=== PATIENT | female | born 1990 | race African-American/Black ===

== ENCOUNTER 2020-06-13 16:22 | Emergency (ER) | payer OTHER ==
--- NOTE | 2020-06-13 17:22 | RAD REPORT ---
EXAM DESCRIPTION: RAD - Chest Single View - 06/13/2020 5:16 pm CLINICAL HISTORY: CHEST PAIN Chest pain. COMPARISON: <Comparisons> FINDINGS: Portable technique limits examination quality. The lungs are grossly clear. The heart is normal in size. No displaced fractures. IMPRESSION: No acute intrathoracic process suspected.
[2020-06-13 17:31] LABS: Basophils % 0.7 % (0-1.3); Hematocrit 41.3 % (36.0-45.0)
[2020-06-13 17:35] LABS: Albumin 3.6 g/dL (3.4-5.0); Bilirubin Direct 0.2 mg/dL (0-0.2); Bilirubin Total 0.5 mg/dL (0.2-1.0); Potassium 3.9 mmol/L (3.5-5.1); Protein, Total 8.2 g/dL (6.4-8.2)
[2020-06-13] MEDS ORDERED: ONDANSETRON 4 MG/2 ML VIAL ONE (17:42)
[2020-06-13] MEDS ORDERED: NA CHLORIDE 0.9% 1,000 ML ONE (17:43)
--- NOTE | 2020-06-13 18:01 | ER ---
Nurse's Notes [facility] Name: Jade Murillo Age: 29 yrs Sex: Female : 1990 Arrival Date: 06/13/2020 Time: 16:24 Bed 24 Private MD: Diagnosis: Nausea and vomiting Presentation: 06/13 16:32 Chief complaint: Patient states: Epigastric pain with N/V for 1 day. + CALDERA. Tested ll1 positive for covid 10 days ago. Coronavirus screen: Client denies travel out of the [place] in the last 14 days. vomiting. Client presents with at least one sign or symptom that may indicate coronavirus-19. Standard/surgical mask placed on the client. Client reports previous positive COVID test result. Date of collection: May 30, 2020. Ebola Screen: Patient denies travel to an Ebola-affected area in the 21 days before illness onset. Initial Sepsis Screen: Does the patient meet any 2 criteria? No. Patient's initial sepsis screen is negative. Risk Assessment: Do you want to hurt yourself or someone else? Patient reports no desire to harm self or others. Onset of symptoms was June 13, 2020. 16:32 Acuity: KEVYN 3 ll1 16:32 Method Of Arrival: Ambulatory ll1 16:45 Initial Sepsis Screen: Does the patient have a suspected source of infection? Yes: vc Other: Covid positive. Triage Assessment: 16:45 General: Appears in no apparent distress. uncomfortable, Behavior is calm, cooperative, vc appropriate for age. Pain: Complains of pain in epigastric area Pain does not radiate. Pain currently is 4 out of 10 on a pain scale. at worst was 10 out of 10 on a pain scale. Quality of pain is described as sharp, Pain began gradually, Is intermittent. GI: Reports upper abdominal pain, nausea, vomiting, Patient currently denies diarrhea. Historical: - Allergies: 16:31 No Known Allergies; ll1 - PSHx: 16:31 D \T\ C; Cholecystectomy; ; ll1 - Immunization history:: Flu vaccine is not up to date. - Social history:: Smoking status: Patient denies any tobacco usage or history of. Patient/guardian denies using alcohol, street drugs. Screenin:45 Abuse screen: Denies threats or abuse. Nutritional screening: No deficits noted. vc Tuberculosis screening: No symptoms or risk factors identified. Fall Risk None identified. Assessment: 16:45 General: Appears in no apparent distress. uncomfortable, Behavior is calm, cooperative, vc appropriate for age. Pain: Complains of pain in epigastric area. Neuro: Level of Consciousness is awake, alert, obeys commands, Oriented to person, place, time, situation, Appropriate for age. Cardiovascular: Capillary refill < 3 seconds Patient's skin is warm and dry. Respiratory: Airway is patent Respiratory effort is even, unlabored, Respiratory pattern is regular, symmetrical. GI: Abdomen is non-distended, Reports upper abdominal pain, nausea, vomiting, Patient currently denies diarrhea. : No signs and/or symptoms were reported regarding the genitourinary system. Derm: Skin is intact, is healthy with good turgor, Skin temperature is warm. Musculoskeletal: Circulation, motion, and sensation intact. Range of motion: intact in all extremities. 17:30 Reassessment: Patient appears in no apparent distress at this time. Patient and/or vc family updated on plan of care and expected duration. Pain level reassessed. Patient is alert, oriented x 3, equal unlabored respirations, skin warm/dry/pink. Patient denies pain at this time. 18:00 Reassessment: Patient appears in no apparent distress at this time. Patient and/or vc family updated on plan of care and expected duration. Pain level reassessed. Patient is alert, oriented x 3, equal unlabored respirations, skin warm/dry/pink. Patient states feeling better. Vital Signs: 16:32 BP 118 / 71; Pulse 71; Resp 17; Temp 98.3; Pulse Ox 100% ; Weight 61.23 kg; Height 5 ll1 ft. 4 in. (162.56 cm); Pain 3/10; 17:00 BP 115 / 82; Pulse 66; Resp 18; Pulse Ox 100% on R/A; vc 18:00 BP 111 / 67; Pulse 60; Resp 18; Pulse Ox 100% on R/A; vc 16:32 Body Mass Index 23.17 (61.23 kg, 162.56 cm) ll1 ED Course: 16:24 Patient arrived in ED. fj1 16:25 [facility] kb 16:25 Teja Vergara MD is Attending Physician. kb 16:33 Triage completed. ll1 16:33 Arm band placed on Patient placed in an exam room, on a stretcher. ll1 16:58 Initial lab(s) drawn, by me, sent to lab. Inserted saline lock: 20 gauge in right jp3 antecubital area, using aseptic technique. Blood collected. Patient maintains SpO2 saturation greater than 95% on room air. 17:00 Bed in low position. Call light in reach. Side rails up X 1. Warm blanket given. Verbal jp3 reassurance given. Pulse ox on. NIBP on. 17:17 X-ray(s) taken. jp3 17:27 Xi Kaplan, RN is Primary Nurse. vc 18:23 No provider procedures requiring assistance completed. IV discontinued, intact, vc bleeding controlled, No redness/swelling at site. Pressure dressing applied. Administered Medications: 17:30 Drug: Zofran (Ondansetron) 4 mg Route: IVP; Site: right antecubital; vc 18:04 Follow up: Response: No adverse reaction; Nausea is decreased vc 17:35 Drug: NS 0.9% 1000 ml Route: IV; Rate: 1000 ml; Site: right antecubital; vc 18:24 Follow up: IV Status: Completed infusion; IV Intake: 700ml vc Intake: 18:24 IV: 700ml; Total: 700ml. vc Outcome: 18:01 Discharge ordered by . kb 18:23 Discharged to home ambulatory. vc 18:23 Condition: good 18:23 Discharge instructions given to patient, Instructed on discharge instructions, follow up and referral plans. medication usage, Demonstrated understanding of instructions, follow-up care, medications, Prescriptions given X 2. 18:24 Patient left the ED. vc Signatures: Shana Wooten, PCA ASSISTED LIVING-C PCA ASSISTED LIVING-Jero Espinoza jp3 Xi Kaplan, RN RN Rachid Armas1 Michelle Benavides RN RN ll1
--- NOTE | 2020-06-13 18:02 | EDPHYS ---
Physician Documentation [facility] Name: Jade Murillo Age: 29 yrs Sex: Female : 1990 Arrival Date: 06/13/2020 Time: 16:24 Bed 24 Private MD: ED Physician Teja Vergara HPI: 06/13 16:49 This 29 yrs old Black Female presents to ER via Ambulatory with complaints of kb Nausea/Vomiting, Abdominal Pain. 16:49 The patient presents to the emergency department with nausea, vomiting. Onset: The kb symptoms/episode began/occurred last night. Possible causes: unknown. The symptoms are aggravated by nothing. The symptoms are alleviated by nothing. Associated signs and symptoms: Pertinent positives: nausea, vomiting. Severity of symptoms: At their worst the symptoms were moderate in the emergency department the symptoms are unchanged. The patient has not experienced similar symptoms in the past. The patient has not recently seen a physician. Pt reports "I can't stop throwing up." States she started vomiting last night, has been unable to keep anything down. Denies decreased urination. Reports she had some epigastric pain when she was vomiting earlier. . Historical: - Allergies: 16:31 No Known Allergies; ll1 - PSHx: 16:31 D \\T\\ C; Cholecystectomy; ; ll1 - Immunization history:: Flu vaccine is not up to date. - Social history:: Smoking status: Patient denies any tobacco usage or history of. Patient/guardian denies using alcohol, street drugs. ROS: 16:50 Constitutional: Negative for fever, chills, and weight loss, Cardiovascular: Negative kb for chest pain, palpitations, and edema, Respiratory: Negative for shortness of breath, cough, wheezing, and pleuritic chest pain, MS/Extremity: Negative for injury and deformity, Skin: Negative for injury, rash, and discoloration, Neuro: Negative for headache, weakness, numbness, tingling, and seizure. 16:51 Abdomen/GI: Positive for abdominal pain, nausea and vomiting. kb Exam: 16:51 Constitutional: This is a well developed, well nourished patient who is awake, alert, kb and in no acute distress. Head/Face: Normocephalic, atraumatic. Chest/axilla: Normal chest wall appearance and motion. Nontender with no deformity. No lesions are appreciated. Cardiovascular: Regular rate and rhythm with a normal S1 and S2. No gallops, murmurs, or rubs. Normal PMI, no JVD. No pulse deficits. Respiratory: Lungs have equal breath sounds bilaterally, clear to auscultation and percussion. No rales, rhonchi or wheezes noted. No increased work of breathing, no retractions or nasal flaring. Abdomen/GI: Soft, non-tender, with normal bowel sounds. No distension or tympany. No guarding or rebound. No evidence of tenderness throughout. Skin: Warm, dry with normal turgor. Normal color with no rashes, no lesions, and no evidence of cellulitis. MS/ Extremity: Pulses equal, no cyanosis. Neurovascular intact. Full, normal range of motion. Neuro: Awake and alert, GCS 15, oriented to person, place, time, and situation. Cranial nerves II-XII grossly intact. Motor strength 5/5 in all extremities. Sensory grossly intact. Cerebellar exam normal. Normal gait. Vital Signs: 16:32 BP 118 / 71; Pulse 71; Resp 17; Temp 98.3; Pulse Ox 100% ; Weight 61.23 kg; Height 5 ll1 ft. 4 in. (162.56 cm); Pain 3/10; 17:00 BP 115 / 82; Pulse 66; Resp 18; Pulse Ox 100% on R/A; vc 18:00 BP 111 / 67; Pulse 60; Resp 18; Pulse Ox 100% on R/A; vc 16:32 Body Mass Index 23.17 (61.23 kg, 162.56 cm) ll1 MDM: 16:35 Patient medically screened. kb 16:51 Data reviewed: vital signs, nurses notes. Data interpreted: Pulse oximetry: on room air kb is 100 %. Interpretation: normal. 18:00 Counseling: I had a detailed discussion with the patient and/or guardian regarding: the kb historical points, exam findings, and any diagnostic results supporting the discharge/admit diagnosis, lab results, radiology results, the need for outpatient follow up, a family practitioner, to return to the emergency department if symptoms worsen or persist or if there are any questions or concerns that arise at home. 06/13 16:39 Order name: Basic Metabolic Panel kb 06/13 16:39 Order name: CBC with Diff kb 06/13 16:39 Order name: Hepatic Function kb 06/13 16:39 Order name: Lipase 06/13 17:33 Order name: CBC with Automated Diff; Complete Time: 17:40 EDMS 06/13 17:36 Order name: Basic Metabolic Panel; Complete Time: 17:40 EDMS 06/13 16:39 Order name: IV Saline Lock; Complete Time: 17:27 kb 06/13 16:39 Order name: Labs collected and sent; Complete Time: 17:27 kb 06/13 16:52 Order name: Chest Single View XRAY kb 06/13 17:25 Order name: RAD; Complete Time: 17:28 EDMS 06/13 17:36 Order name: Liver (Hepatic) Function; Complete Time: 17:40 EDMS 06/13 17:36 Order name: Lipase; Complete Time: 17:40 EDMS 06/13 17:41 Order name: PO challenge; Complete Time: 18:23 kb Administered Medications: 17:30 Drug: Zofran (Ondansetron) 4 mg Route: IVP; Site: right antecubital; vc 18:04 Follow up: Response: No adverse reaction; Nausea is decreased vc 17:35 Drug: NS 0.9% 1000 ml Route: IV; Rate: 1000 ml; Site: right antecubital; vc 18:24 Follow up: IV Status: Completed infusion; IV Intake: 700ml vc Disposition: 06/14 07:57 Co-signature as Attending Physician, Teja Vergara MD I agree with the assessment and kdr plan of care. Disposition: 06/13/20 18:01 Discharged to Home. Impression: Nausea and vomiting. - Condition is Stable. - Discharge Instructions: Nausea and Vomiting, Adult, [id number]. - Prescriptions for Bentyl 20 mg Oral Tablet - take 1 tablet by ORAL route every 6 hours As needed; 20 tablet. Zofran 4 mg Oral Tablet - take 1 tablet by ORAL route every 6 hours As needed; 20 tablet. - Medication Reconciliation Form, Thank You Letter, Antibiotic Education, Prescription Opioid Use form. - Follow up: Emergency Department; When: As needed; Reason: Worsening of condition. Follow up: Private Physician; When: 2 - 3 days; Reason: Recheck today's complaints, Continuance of care, Re-evaluation by your physician. Signatures: Dispatcher [employer] Shana Victoria FNP-C CAR BODY MECHANIC-Ckb Teja Vergara MD MD kdr Xi Kaplan RN RN vc Michelle Benavides RN RN ll1 Corrections: (The following items were deleted from the chart) 06/13 16:51 16:50 Constitutional: Negative for fever, chills, and weight loss, Cardiovascular: kb Negative for chest pain, palpitations, and edema, Respiratory: Negative for shortness of breath, cough, wheezing, and pleuritic chest pain, Abdomen/GI: Negative for abdominal pain, nausea, vomiting, diarrhea, and constipation, MS/Extremity: Negative for injury and deformity, Skin: Negative for injury, rash, and discoloration, Neuro: Negative for headache, weakness, numbness, tingling, and seizure, kb 18:24 18:01 06/13/2020 18:01 Discharged to Home. Impression: Nausea and vomiting. Condition vc is Stable. Forms are Medication Reconciliation Form, Thank You Letter, Antibiotic Education, Prescription Opioid Use. Follow up: Emergency Department; When: As needed; Reason: Worsening of condition. Follow up: Private Physician; When: 2 - 3 days; Reason: Recheck today's complaints, Continuance of care, Re-evaluation by your physician. kb
[2020-06-13 18:30] VITALS: TEMP 98.3; O2SAT 100
[2020-06-13 18:33] VITALS: BP 111/67
== END 2020-06-13 18:24 | disposition home or self-care (01) ==
LOC: ER 16:22
DX: R11.2 Nausea with vomiting, unspecified (principal); R10.13 Epigastric pain
CPT/HCPCS: 96361; 85025; 80048; 36415; 80076; 83690; 71045; 96374; 99284; J7030; J2405

== ENCOUNTER 2022-05-25 12:38 | Emergency (ER) | payer OTHER, SELFPAY ==
--- NOTE | 2022-05-25 15:00 | ER ---
Nurse's Notes [facility] Name: Jade Murillo Age: 31 yrs Sex: Female : 1990 Arrival Date: 05/25/2022 Time: 12:41 Bed 10 Private MD: Diagnosis: Coronavirus infection, unspecified Presentation: 05/25 12:54 Chief complaint: Patient states: fever, body aches, and headache since yesterday. vg1 Denies NVD. Coronavirus screen: Vaccine status: Patient reports being unvaccinated. Client denies travel out of the [place] in the last 14 days. Ebola Screen: Patient denies exposure to infectious person. Patient denies travel to an Ebola-affected area in the 21 days before illness onset. Initial Sepsis Screen: Does the patient meet any 2 criteria? HR > 90 bpm. Does the patient have a suspected source of infection? No. Patient's initial sepsis screen is negative. Risk Assessment: Do you want to hurt yourself or someone else? Patient reports no desire to harm self or others. Onset of symptoms was May 24, 2022. 12:54 Method Of Arrival: Ambulatory [facility] 12:54 Acuity: KEVYN 4 vg1 Triage Assessment: 12:57 Headache History: The patient has had previous headaches and this one is similar to vg1 previous episodes. General: Appears in no apparent distress. uncomfortable, Behavior is calm, cooperative. Pain: Complains of pain in generalize body Pain currently is 7 out of 10 on a pain scale. Pain began 1 day ago. Also complains of no other associated symptoms. Neuro: Level of Consciousness is awake, alert, obeys commands, Oriented to person, place, time, situation. 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 - Social history:: Smoking status: Patient denies any tobacco usage or history of. Screenin:08 Abuse screen: Denies threats or abuse. Denies injuries from another. Nutritional ld1 screening: No deficits noted. Tuberculosis screening: No symptoms or risk factors identified. Fall Risk None identified. Assessment: 15:08 Reassessment: See triage assessment. ld1 Vital Signs: 12:54 BP 145 / 97; Pulse 111; Resp 16; Temp 101.4(O); Pulse Ox 100% on R/A; Weight 70.76 kg; vg1 Height 5 ft. 4 in. (162.56 cm); Pain 7/10; 15:08 BP 139 / 95; Pulse 102; Resp 18; Temp 99.3(O); Pulse Ox 100% on R/A; ld1 12:54 Body Mass Index 26.78 (70.76 kg, 162.56 cm) vg1 ED Course: 12:41 Patient arrived in ED. as 12:45 Forest Viramontes is PHCP. 9 12:57 Triage completed. vg1 12:57 Arm band placed on. vg1 15:00 Forest Viramontes is PHCP. jl9 15:00 Travis Doll DO is Attending Physician. jl9 15:00 Sienna Jean, RN is Primary Nurse. ld1 15:08 Patient has correct armband on for positive identification. Placed in gown. Bed in low ld1 position. Call light in reach. Side rails up X2. Pulse ox on. NIBP on. Door closed. Noise minimized. Warm blanket given. 15:08 No provider procedures requiring assistance completed. Patient did not have IV access ld1 during this emergency room visit. Administered Medications: 15:08 Drug: Tylenol 1000 mg Route: PO; ld1 Medication: 15:08 VIS not applicable for this client. ld1 Outcome: 14:59 Discharge ordered by MD. ruiz 15:01 Discharge ordered by MD. ruiz 15:09 Discharged to home ambulatory. ld1 15:09 Condition: stable 15:09 Discharge instructions given to patient, Instructed on discharge instructions, follow up and referral plans. Demonstrated understanding of instructions, follow-up care. 15:09 Patient left the ED. ld1 Signatures: Desi Dwyer Victoria, RN RN 1 Sienna Jean, YONG RN ld1 Forest Viramontes jl9
--- NOTE | 2022-05-25 15:00 | EDPHYS ---
Physician Documentation [facility] Name: Jade Murillo Age: 31 yrs Sex: Female : 1990 Arrival Date: 05/25/2022 Time: 12:41 Bed 10 Private MD: ED Physician Travis Doll HPI: 05/25 14:41 This 31 yrs old Black Female presents to ER via Ambulatory with complaints of Fever, jl9 Pain All Over, Headache. 14:41 Onset: The symptoms/episode began/occurred yesterday. Associated signs and symptoms: jl9 Pertinent positives: Fever, body aches, headache. . Severity of symptoms: in the emergency department the symptoms are unchanged. . 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 - Social history:: Smoking status: Patient denies any tobacco usage or history of. ROS: 14:43 Eyes: Negative for injury, pain, redness, and discharge, ENT: Negative for injury, jl9 pain, and discharge, Neck: Negative for injury, pain, and swelling, Cardiovascular: Negative for chest pain, palpitations, and edema, Respiratory: Negative for shortness of breath, cough, wheezing, and pleuritic chest pain, Abdomen/GI: Negative for abdominal pain, nausea, vomiting, diarrhea, and constipation, Back: Negative for injury and pain, MS/Extremity: Negative for injury and deformity, Skin: Negative for injury, rash, and discoloration, Neuro: Negative for headache, weakness, numbness, tingling, and seizure, Psych: Negative for depression, anxiety, suicide ideation, homicidal ideation, and hallucinations, Allergy/Immunology: Negative for hives, rash, and allergies, Endocrine: Negative for neck swelling, polydipsia, polyuria, polyphagia, and marked weight changes, Hematologic/Lymphatic: Negative for swollen nodes, abnormal bleeding, and unusual bruising. 14:43 Constitutional: Positive for body aches, fever, Headache. Exam: 14:43 Constitutional: This is a well developed, well nourished patient who is awake, alert, jl9 and in no acute distress. Head/Face: Normocephalic, atraumatic. Eyes: Pupils equal round and reactive to light, extra-ocular motions intact. Lids and lashes normal. Conjunctiva and sclera are non-icteric and not injected. Cornea within normal limits. Periorbital areas with no swelling, redness, or edema. ENT: Mucous membranes moist. Neck: Trachea midline, no thyromegaly or masses palpated, and no cervical lymphadenopathy. Supple, full range of motion without nuchal rigidity, or vertebral point tenderness. No Meningismus. Chest/axilla: Normal chest wall appearance and motion. Nontender with no deformity. No lesions are appreciated. Cardiovascular: Regular rate and rhythm with a normal S1 and S2. No gallops, murmurs, or rubs. Normal PMI, no JVD. No pulse deficits. Respiratory: Lungs have equal breath sounds bilaterally, clear to auscultation and percussion. No rales, rhonchi or wheezes noted. No increased work of breathing, no retractions or nasal flaring. Abdomen/GI: Soft, non-tender, with normal bowel sounds. No distension or tympany. No guarding or rebound. No evidence of tenderness throughout. Back: No spinal tenderness. No costovertebral tenderness. Full range of motion. Skin: Warm, dry with normal turgor. Normal color with no rashes, no lesions, and no evidence of cellulitis. MS/ Extremity: Pulses equal, no cyanosis. Neurovascular intact. Full, normal range of motion. Neuro: Awake and alert, GCS 15, oriented to person, place, time, and situation. Cranial nerves II-XII grossly intact. Motor strength 5/5 in all extremities. Sensory grossly intact. Cerebellar exam normal. Normal gait. Psych: Awake, alert, with orientation to person, place and time. Behavior, mood, and affect are within normal limits. Vital Signs: 12:54 BP 145 / 97; Pulse 111; Resp 16; Temp 101.4(O); Pulse Ox 100% on R/A; Weight 70.76 kg; vg1 Height 5 ft. 4 in. (162.56 cm); Pain 7/10; 15:08 BP 139 / 95; Pulse 102; Resp 18; Temp 99.3(O); Pulse Ox 100% on R/A; ld1 12:54 Body Mass Index 26.78 (70.76 kg, 162.56 cm) vg1 MDM: 14:01 Patient medically screened. jl9 15:04 Data reviewed: vital signs, nurses notes. jl9 05/25 13:00 Order name: Flu; Complete Time: 14:06 vg1 05/25 13:00 Order name: SARS-COV-2 RT PCR (Document "Date of Onset" if Symptomatic) vg1 Administered Medications: 15:08 Drug: Tylenol 1000 mg Route: PO; ld1 Disposition: 22:01 Co-signature as Attending Physician, Travis STONE was immediately available on-site ms3 in the Emergency Department for consultation in the care of the patient. . Disposition Summary: 05/25/22 15:01 Discharge Ordered Location: Home(05/25/22 15:01) jl9 Condition: Stable(05/25/22 15:01) jl9 Diagnosis - Coronavirus infection, unspecified(05/25/22 15:01) jl9 Discharge Instructions: - Discharge Summary Sheet jl9 - COVID-19 jl9 Forms: - Medication Reconciliation Form jl9 - Thank You Letter jl9 - Antibiotic Education jl9 - Prescription Opioid Use jl9 Signatures: Dispatcher [employer] EDSybil Jett, RN RN vg1 Travis Doll DO DO ms3 Sienna Jean RN RN ld1 Forest Viramontes jl9 Corrections: (The following items were deleted from the chart) 15:01 14:59 Home jl9 jl9 15:01 14:59 Stable 9 jl9 15:01 14:59 Coronavirus infection, unspecified jl9 jl9
[2022-05-25] MEDS ORDERED: ACETAMINOPHEN 500 MG TAB ONE (15:10)
[2022-05-25 15:49] VITALS: O2SAT 100
[2022-05-25 15:59] VITALS: BP 139/95; TEMP 99.3
== END 2022-05-25 15:09 | disposition home or self-care (01) ==
LOC: ER 12:38
DX: U07.1 COVID-19 (principal)
CPT/HCPCS: 87804; 99283; U0003

== ENCOUNTER 2022-11-11 11:38 | Emergency (ER) | payer OTHER ==
--- OUTSIDE RECORDS SUMMARY | 2022-11-11 11:46 | XMS REPORT | Continuity of Care Document ---
:1990 Author Organization [facility] t Address [address] [place] [address] Care Team Providers Name Role Phone Romy Attending Clinician Unavailable PRASHANTH Attending Clinician Unavailable Romy Admitting Clinician Unavailable PRASHANTH Admitting Clinician Unavailable Payers Payer Name Policy Type Policy Number Effective Date Expiration Date [facility] [id number] CHOICE (MEDICAID REPLACEMENT - [place] [id number] WOMEN'S HEALTH PROGRAM [place] [id number] 2019 [facility] [place] 00:00:00 WOMEN RELIANCE STANDARD [id number] - [facility] MEDICAL LIMITED PLAN - MULTIPLAN Problems Condition Condition Condition Status Onset Resolution Last Treating Co mments Source Name Details Category Date Date Treatment Clinician Date Intramural Intramural Problem Active [facility] leiomyoma Leiomyoma 5-17 da of uterus of Uterus 00:00: Medi pam 00 Group Gonorrhea Gonorrhea Problem Active 2019-11 [facility] 0-13 da 00:00: Medical 00 Group Transderma Transderma Problem Active [facility] l l 9-28 da contracept Contracept 00:00: Me dical kari kari 00 Group Gynecologi Gynecologi Problem Active [facility] c c 928 da examinatio Examinatio 00:00: Me dical n n 00 Group Venereal Venereal Problem Active [place] disease Disease 9- da screening Screening 00:00: [facility] Group Intermenst Intermenst Problem Active [facility] rual rual 6-16 da bleeding - Bleeding - 00:00: Me dical irregular Irregular 00 Grou p Initiation Initiation Problem Active [facility] of of 6-16 da transderma Transderma 00:00: Me dical l l 00 Group contracept Contracept ion done ion Done Problem Active 2018-11 [facility] care Care 1-12 da 00:00: Medical 00 Group Initiation Initiation Problem Active 2018-11 [facility] [place] 1-12 da contracept Contracept 00:00: Me dical ion done ion Done 00 Group Contracept Contracept Problem Active 2018-11 [facility] ion ion 1-12 da education Education 00:00: Medi pam Group Small for Small for Problem Active [facility] gestationa Gestationa 8-28 da l age l Age 00:00: Medical fetus Fetus 00 Group Unintentio Unintentio Problem Active [facility] nal weight nal Weight 5-07 da loss Loss 00:00: Medical 00 Group Severe Severe Problem Active [facility] hyperemesi Hyperemesi 4-09 da s s 00:00: Medical gravidarum Gravidarum 00 Gr oup Allergies, Adverse Reactions, Alerts Allergy Allergy Status Severity Reaction(s) Onset Inactive Treating Comm ents Source Name Type Date Date Clinician No Known DA Active U 2018- [facility] All[facility]ie 9-25 [facility] [place] Social History Smoking Status Start Date Stop Date Source Never Smoker [facility] Medications Ordered Filled Start Stop Current Ordering Indication Dosage Frequency Signature Comments Components Source Medication Medication Date Date Medication? Clinician (SIG) Name Name medroxyprog medroxyprog No medroxypro [place] esterone 10 esterone 10 gesterone da mg tablet mg tablet 10 mg Medi pam TAKE ONE TAKE ONE tablet Group (1) (1) TAKE ONE TABLET(S) TABLET(S) (1) BY MOUTH BY MOUTH TABLET(S) ONCE A DAY. ONCE A DAY. BY MOUTH ONCE A DAY. medroxyprog medroxyprog No 1mL medroxypro [place] esterone esterone gesterone da 150 mg/mL 150 mg/mL 150 mg/mL Medical intramuscul intramuscul intramuscu Group ar ar lar suspension suspension suspension Inject 1 mL Inject 1 mL Inject 1 every 3 every 3 mL every 3 months by months by months by intramuscul intramuscul intramuscu ar route. ar route. lar route. Vital Signs Vital Name Observation Time Observation Value Comments Source BP Diastolic 2022-06-22 00:00:00 82 mm[Hg] [facility] Height 2022-06-22 00:00:00 64 [in_i] [facility] BMI (Body Mass 2022-06-22 00:00:00 26 kg/m2 [facility] Index) Group BP Systolic 2022-06-22 00:00:00 131 mm[Hg] [facility] Body Weight 2022-06-22 00:00:00 151.4 [lb_av] [facility] BP Diastolic 2022-05-08 00:00:00 92 mm[Hg] [facility] Height 2022-05-08 00:00:00 64 [in_i] [facility] BMI (Body Mass 2022-05-08 00:00:00 25.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) Group BP Systolic 2022-05-08 00:00:00 142 mm[Hg] [facility] Body Weight 2022-05-08 00:00:00 151 [lb_av] [facility] Height 2022-03-18 00:00:00 64 [in_i] [facility] BP Diastolic 2021-12-18 00:00:00 88 mm[Hg] [facility] Height 2021-12-18 00:00:00 64 [in_i] [facility] BMI (Body Mass 2021-12-18 00:00:00 25.5 kg/m2 [facility] Index) Group BP Systolic 2021-12-18 00:00:00 138 mm[Hg] [facility] Body Weight 2021-12-18 00:00:00 148.4 [lb_av] [facility] Height 2021-09-17 00:00:00 64 [in_i] [facility] BMI (Body Mass 2021-09-17 00:00:00 23.2 kg/m2 [facility] Medical Index) Group Body Weight 2021-09-17 00:00:00 135 [lb_av] [facility] BP Diastolic 2021-09-02 00:00:00 75 mm[Hg] [facility] Height 2021-09-02 00:00:00 64 [in_i] [facility] BMI (Body Mass 2021-09-02 00:00:00 23 kg/m2 [facility] Medical Index) Group BP Systolic 2021-09-02 00:00:00 119 mm[Hg] [facility] Body Weight 2021-09-02 00:00:00 134.2 [lb_av] [facility] BP Diastolic 2021-08-19 00:00:00 87 mm[Hg] [facility] Height 2021-08-19 00:00:00 64 [in_i] [facility] BMI (Body Mass 2021-08-19 00:00:00 22.6 kg/m2 [facility] Medical Index) Group BP Systolic 2021-08-19 00:00:00 124 mm[Hg] [facility] Body Weight 2021-08-19 00:00:00 131.9 [lb_av] [facility] BP Diastolic 2021-04-11 00:00:00 81 mm[Hg] [facility] Height 2021-04-11 00:00:00 64 [in_i] [facility] BMI (Body Mass 2021-04-11 00:00:00 21.1 kg/m2 [facility] Medical Index) Group BP Systolic 2021-04-11 00:00:00 144 mm[Hg] [facility] Body Weight 2021-04-11 00:00:00 122.9 [lb_av] [facility] Height 2021-03-24 00:00:00 64 [in_i] [facility] BMI (Body Mass 2021-03-24 00:00:00 20.9 kg/m2 [facility] Medical Index) Group BP Systolic 2021-03-24 00:00:00 127 mm[Hg] [facility] Body Weight 2021-03-24 00:00:00 122 [lb_av] [facility] BP Diastolic 2021-03-24 00:00:00 83 mm[Hg] [facility] BP Diastolic 2020-09-24 00:00:00 83 mm[Hg] [facility] Height 2020-09-24 00:00:00 64 [in_i] [facility] BMI (Body Mass 2020-09-24 00:00:00 22.7 kg/m2 [facility] Index) Group BP Systolic 2020-09-24 00:00:00 120 mm[Hg] [facility] Body Weight 2020-09-24 00:00:00 132.4 [lb_av] [facility] BP Diastolic 2020-08-20 00:00:00 70 mm[Hg] [facility] Height 2020-08-20 00:00:00 64 [in_i] [facility] BMI (Body Mass 2020-08-20 00:00:00 22.6 kg/m2 [facility] Index) Group BP Systolic 2020-08-20 00:00:00 131 mm[Hg] [facility] Body Weight 2020-08-20 00:00:00 131.5 [lb_av] [facility] BP Diastolic 2020-08-05 00:00:00 80 mm[Hg] [facility] Height 2020-08-05 00:00:00 64 [in_i] [facility] BMI (Body Mass 2020-08-05 00:00:00 22.3 kg/m2 [facility] Index) Group BP Systolic 2020-08-05 00:00:00 130 mm[Hg] [facility] Body Weight 2020-08-05 00:00:00 130 [lb_av] [facility] BP Diastolic 2020-04-23 00:00:00 82 mm[Hg] [facility] Height 2020-04-23 00:00:00 64 [in_i] [facility] BMI (Body Mass 2020-04-23 00:00:00 23 kg/m2 [facility] Index) Group BP Systolic 2020-04-23 00:00:00 128 mm[Hg] [facility] Body Weight 2020-04-23 00:00:00 134 [lb_av] [facility] BP Diastolic 2020-01-02 00:00:00 73 mm[Hg] [facility] Height 2020-01-02 00:00:00 64 [in_i] [facility] BMI (Body Mass 2020-01-02 00:00:00 21.8 kg/m2 [facility] Index) Group BP Systolic 2020-01-02 00:00:00 114 mm[Hg] [facility] Body Weight 2020-01-02 00:00:00 127.1 [lb_av] [facility] BP Diastolic 2019-09-19 00:00:00 78 mm[Hg] [facility] Height 2019-09-19 00:00:00 64 [in_i] [facility] BMI (Body Mass 2019-09-19 00:00:00 21.8 kg/m2 [facility] Index) Group BP Systolic 2019-09-19 00:00:00 122 mm[Hg] [facility] Body Weight 2019-09-19 00:00:00 127.2 [lb_av] [facility] BP Diastolic 2019-08-02 00:00:00 77 mm[Hg] [facility] Height 2019-08-02 00:00:00 64 [in_i] [facility] BMI (Body Mass 2019-08-02 00:00:00 22 kg/m2 [facility] Index) Group BP Systolic 2019-08-02 00:00:00 116 mm[Hg] [facility] Body Weight 2019-08-02 00:00:00 128 [lb_av] [facility] BP Diastolic 2019-07-19 00:00:00 76 mm[Hg] [facility] Height 2019-07-19 00:00:00 64 [in_i] [facility] BMI (Body Mass 2019-07-19 00:00:00 21.8 kg/m2 [facility] Index) Group BP Systolic 2019-07-19 00:00:00 117 mm[Hg] [facility] Body Weight 2019-07-19 00:00:00 127 [lb_av] [facility] BP Diastolic 2019-07-05 00:00:00 63 mm[Hg] [facility] Height 2019-07-05 00:00:00 64 [in_i] [facility] BMI (Body Mass 2019-07-05 00:00:00 21.9 kg/m2 [facility] Medical Index) Group BP Systolic 2019-07-05 00:00:00 103 mm[Hg] [facility] Body Weight 2019-07-05 00:00:00 127.5 [lb_av] [facility] BP Diastolic 2019-06-05 00:00:00 76 mm[Hg] [facility] Height 2019-06-05 00:00:00 64 [in_i] [facility] BMI (Body Mass 2019-06-05 00:00:00 20.9 kg/m2 [facility] Index) Group BP Systolic 2019-06-05 00:00:00 106 mm[Hg] [facility] Body Weight 2019-06-05 00:00:00 122 [lb_av] [facility] BP Diastolic 2019-05-08 00:00:00 69 mm[Hg] [facility] Height 2019-05-08 00:00:00 64 [in_i] [facility] BMI (Body Mass 2019-05-08 00:00:00 20.5 kg/m2 [facility]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) Group BP Systolic 2019-05-08 00:00:00 107 mm[Hg] [facility] Body Weight 2019-05-08 00:00:00 119.4 [lb_av] [facility] BP Diastolic 2019-04-10 00:00:00 81 mm[Hg] [facility] Height 2019-04-10 00:00:00 64 [in_i] [facility] BMI (Body Mass 2019-04-10 00:00:00 19.3 kg/m2 [facility]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) Group BP Systolic 2019-04-10 00:00:00 119 mm[Hg] [facility] Body Weight 2019-04-10 00:00:00 112.5 [lb_av] [facility] BP Diastolic 2019-04-04 00:00:00 85 mm[Hg] [facility] Height 2019-04-04 00:00:00 64 [in_i] [facility] BMI (Body Mass 2019-04-04 00:00:00 19.4 kg/m2 [facility]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) Group BP Systolic 2019-04-04 00:00:00 132 mm[Hg] [facility] Body Weight 2019-04-04 00:00:00 113 [lb_av] [facility] BP Diastolic 2019-03-14 00:00:00 87 mm[Hg] [facility] Height 2019-03-14 00:00:00 64 [in_i] [facility] BMI (Body Mass 2019-03-14 00:00:00 19.1 kg/m2 [facility]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) Group BP Systolic 2019-03-14 00:00:00 124 mm[Hg] [facility] Body Weight 2019-03-14 00:00:00 111 [lb_av] [facility] BP Diastolic 2019-02-14 00:00:00 97 mm[Hg] [facility] Height 2019-02-14 00:00:00 64 [in_i] [facility] BMI (Body Mass 2019-02-14 00:00:00 20.6 kg/m2 [facility] Medical Index) Group BP Systolic 2019-02-14 00:00:00 135 mm[Hg] [facility] Body Weight 2019-02-14 00:00:00 120 [lb_av] [facility] BP Diastolic 2019-02-07 00:00:00 83 mm[Hg] [facility] Height 2019-02-07 00:00:00 64 [in_i] [facility] BMI (Body Mass 2019-02-07 00:00:00 22 kg/m2 [facility]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) Group BP Systolic 2019-02-07 00:00:00 124 mm[Hg] [facility] Body Weight 2019-02-07 00:00:00 128.4 [lb_av] [facility] BP Diastolic 2019-01-26 00:00:00 84 mm[Hg] [facility] Height 2019-01-26 00:00:00 64 [in_i] [facility] BMI (Body Mass 2019-01-26 00:00:00 22.4 kg/m2 [facility] Index) Group BP Systolic 2019-01-26 00:00:00 128 mm[Hg] [facility] Body Weight 2019-01-26 00:00:00 130.4 [lb_av] [facility] BP Diastolic 2019-01-03 00:00:00 76 mm[Hg] [facility] Height 2019-01-03 00:00:00 64 [in_i] [facility] BMI (Body Mass 2019-01-03 00:00:00 22.4 kg/m2 [facility] Medical Index) Group BP Systolic 2019-01-03 00:00:00 118 mm[Hg] [facility] Body Weight 2019-01-03 00:00:00 130.3 [lb_av] [facility] Procedures Procedure Date / Time Performing Source Performed Clinician US, transvaginal 2021-03-24 00:00:00 Caroline Wynn edical Group US, obstetric, limited 2019-08-02 00:00:00 [facility] US(FBP)W/0 NON STRESS TEST 2019-08-02 00:00[facility] 2019-07-05 00:00:00 [facility] US, obstetric, limited 2019-04-10 00:00:00 [facility] ULTRASOUND, UTERUS 2019-04-10 00:00:00 [facility] REAL TIME WITH IMAGE DOC, Group AND MATERNAL EVAL PLUS DETAILED ANATOMIC EXAMINATION, TRANSABDOMINAL APPROACH; SINGLE OR FIRST GESTATION US, obstetric, limited 2019-03-14 00:00:00 [facility] ULTRASOUND, UTERUS 2019-02-14 00:00:00 [facility] REAL TIME WITH IMAGE Group DOCUMENTAITON, TRANSVAGINAL ULTRASOUND, UTERUS 2019-01-26 00:00:00 [facility] REAL TIME WITH IMAGE Group DOCUMENTAITON, TRANSVAGINAL XR, hysterosalpingogram 2019-01-03 00:00:00 [facility] 2018-11-08 00:00:00 [facility] dical Group Dilation and Curettage 2014-09-08 00:00:00 [facility] Plan of Care Planned Activity Planned Date Details Comments Source Diagnostic Test 2022-06-22 test, [facility] Pending 00:00:00 urine [code = Group test, urine] Encounters Start End Encounter Admission Attending Care Care Encounter Source Date/Time Date/Time Type Type Clinicians Facility Department ID 2022-10-01 2022-10-01 Outpatient Rutledge_L [facility] [id number] [place] 00:00:00 00:00:00 1124 [facility] 2022-09-25 2022-09-25 Outpatient Rutledge_L [facility] [id number] [place] 00:00:00 00:00:00 1118 [facility] 2022-09-01 2022-09-01 Outpatient Rutledge_L MMG [facility] [id number] [place] 00:00:00 00:00:00 1025 [facility] 2022-08-05 2022-08-05 Outpatient Rutledge_L MMG [facility] [id number] [place] 00:00:00 00:00:00 0928 [facility] 2022-06-23 2022-06-23 Outpatient Rutledge_L MMG [facility] 2716 [place] 00:00:00 00:00:00 0816 [facility] 2022-06-22 2022-06-22 Judy [place]ieledge_[place] - [id number] 022 [place] 00:00:00 00:00:00 Adan Eagle 0815 Elizabteh Davis MD: [address] [place] [address] , Ph. [phone] 2022-06-16 2022-06-16 Outpatient Rutledge_L MMG MMG [id number] [place] 00:00:00 00:00:00 0809 da [facility] 2022-05-08 2022-05-08 Arun Wilsonledge_[place] MM[place] - [id number] 022 [place] 00:00:00 00:00:00 Discovery Lyric 0701 da MD: [address] [place] [address] , Ph. [phone] 2022-03-18 2022-03-18 Ar[place] Wilsonledge_[place] MM[place] - [id number] 022 [place] 00:00:00 00:00:00 Discovery Lyric 0511 mark MD: [address] [place] [address] , Ph. [phone] 2021-12-23 2021-12-23 Outpatient Rutledge_L MMG MMG 2716 [place] 09:19:00 09:19:00 0215 mark [facility] 2021-12-18 2021-12-18 Patricia [place] - [address] [place] 00:00:00 00:00:00 Discovery Martha 0210 mark [facility]: [address] [address] , Ph. [phone] 2021-12-17 2021-12-17 Outpatient Rutledge_L MMG MMG [id number] [place] 04:22:00 04:22:00 0209 Medical Group 2021-10-10 2021-10-10 Outpatient DICLEMENTE_ MILAN YATES 750 [place] 05:04:00 05:04:00 TEETEE Christensen mark [facility] 2021-09-17 2021-09-17 Patricia Rutledge_L MM[place] - [id number] 021 [place] 00:00:00 00:00:00 Discovery Martha 1110 [facility]: [address] [address] , Ph. [phone] 2021-09-02 2021-09-02 Patricia Rutledge_L MMG [place] - [id number] 021 [place] 00:00:00 00:00:00 Discovery Martha 1026 [facility]: [address] [address] , Ph. [phone] 2021-08-27 2021-08-27 Outpatient Rutledge_L MMG MMG 2716 [place] 11:50:00 11:50:00 1020 [facility] 2021-08-19 2021-08-19 Patricia Rutledge_[place] MM[place] - [id number] 021 [place] 00:00:00 00:00:00 Discovery Martha 1012 [facility]: [address] [address] , Ph. [phone] 2021-04-22 2021-04-22 Outpatient Rutledge_L MMG MMG 2716 [place] 01:40:00 01:40:00 0615 [facility] 2021-04-11 2021-04-11 Arun Rutledge_[place] - [id number] 021 [place] 00:00:00 00:00:00 Discovery Lyric 0604 mark MD: [address] [place] [address], [place] [address] , Ph. [phone] 2021-03-24 2021-03-24 Arun Rutledge_[place] - [id number] 021 [place] 00:00:00 00:00:00 Discovery Lyric 0517 mark MD: [address] [place] [address] , Ph. [phone] 2020-12-02 2020-12-02 Outpatient Rutledge_L MMG MMG 2716 [place] 12:46:00 12:46:00 0125 [facility] 2020-11-27 2020-11-27 Outpatient Rutledge_L MMG MMG 2716 [place] 03:56:00 03:56:00 0120 [facility] 2020-11-25 2020-11-25 Outpatient Rutledge_L MMG MMG 2716 [place] 02:38:00 02:38:00 0118 [facility] 2020-09-25 2020-09-25 Outpatient Rutledge_L MMG MMG 2716 [place] 02:21:00 02:21:00 1118 [facility] 2020-09-24 2020-09-24 Judy Rutledge_[place] - [id number] 020 [place] 00:00:00 00:00:00 Adan Eagle 1117 Elizabeth Davis Medicshila vieyra MD: [address] [place] [address] , Ph. [phone] 2020-09-14 2020-09-14 Outpatient Rutledge_L MMG MMG 2716 [place] 12:28:00 12:28:00 1107 mark [facility] 2020-08-20 2020-08-20 Yary Ramirez [facility]_L [facility] [place] - 2716 [place] 00:00:00 00:00:00 Discovery Yves 1013 da WHNP: [facility] [address] [address] , Ph. [phone] 2020-08-05 2020-08-05 Yary Ramirez [facility] [place] - 2716 [place] 00:00:00 00:00:00 Discovery Yves 09 da WHNP: [address] [facility] [address] [address] , Ph. [phone] 2020-05-04 2020-05-04 Outpatient Rut[facility]_L MMG MMG 2716 [place] 11:32:00 11:32:00 0627 [facility] 2020-04-23 2020-04-23 Yary Fabiann [facility]_L [facility] [place] - 2716 [place] 00:00:00 00:00:00 Discovery Yves 0616 da WHNP: [address] [facility] [address] [address] , Ph. [phone] 2020-02-12 2020-02-12 Outpatient Rutledge_L MMG MMG 2716 [place] 05:07:00 05:07:00 0406 Medical Group 2020-01-15 2020-01-15 Outpatient Rutledge_L MMG MMG 2716 [place] 10:29:00 10:29:00 0309 Medical Group 2020-01-05 2020-01-05 Outpatient Rutledge_L MMG MMG 2716 [place] 09:41:00 09:41:00 0228 Medical Group 2020-01-04 2020-01-04 Outpatient Rutledge_L MMG MMG 2716 [place] 06:57:00 06:57:00 0227 Medical Group 2020-01-02 2020-01-02 Judy Rutledge_[place] MM[place] - [id number] 020 [place] 00:00:00 00:00:00 Adan Eagle 0225 [facility] azalia MD: [address] [place] [address] , Ph. [phone] 2019-12-19 2019-12-19 Outpatient Rutledge_L MMG MMG 2716 [place] 03:47:00 03:47:00 0211 [facility] 2019-12-11 2019-12-11 Outpatient FLOR Armstrong [place] 11:19:00 11:19:00 TEETEE 0203 mark [facility] 2019-09-19 2019-09-19 Yary [place] [facility] [place] - [id number] 019 [place] 00:00:00 00:00:00 Discovery Yves 1112 da WHNP: [address] [facility] [address] [address] , Ph. [phone] 2019-08-02 2019-08-02 Judy [facility] [place] - [id number] [place] 00:00:00 00:00:00 Adan Eagle 0925 Elizabeth Davis MD: [address] [place] [address] , Ph. [phone] 2019-07-19 2019-07-19 Judy [facility] [place] - [id number] [place] 00:00:00 00:00:00 Adan Eagle 0911 Elizabeth Davis MD: [address] [place] [address] , Ph. [phone] 2019-07-05 2019-07-05 Judy [facility] [place] - [id number] [place] 00:00:00 00:00:00 Elizabeth Arshad MD: [address] [place] [address] , Ph. [phone] 2019-06-05 2019-06-05 Judy [facility] [place] - [id number] [place] 00:00:00 00:00:00 Adan Daigle29 Elizabeth Davis MD: [address] [place] [address] , Ph. [phone] 2019-05-08 2019-05-08 [facility] [place] [facility] [address] [place] 00:00:00 00:00:00 Adan Eagle 0701 Elizabeth Davis MD: [address] [place] [address], [address], [place] [address] , Ph. [phone] 2019-04-10 2019-04-10 [facility] [place] - [address] [place] 00:00:00 00:00:00 Adan Eagle 0603 mark [facility] Medicshila vieyra MD: [address] [place] [address] [address], [place] [address] , Ph. [phone] 2019-04-04 2019-04-04 [facility] [place] 00:00:00 00:00:00 Teetee Eagle 0528 mark Robles MD: Medical Medicshila vieyra [address] [place] [address], General [address], [place] [address] , Ph. [phone] 2019-03-14 2019-03-14 [facility] [place] - [address] [place] 00:00:00 00:00:00 Adan Eagle 0507 Elizabeth Davis MD: [address] [place] [address], [address], [place] [address] , Ph. [phone] 2019-02-14 2019-02-14 [facility] - [address] [place] 00:00:00 00:00:00 Adan Chaves9 Elizabeth Davis Medicshila vieyra MD: [address] [place] [address] [facility] [address], [place] [address] , Ph. [phone] 2019-02-07 2019-02-07 [place] [address] [place] 00:00:00 00:00:00 Adan Chaves2 Elizabeth Davis MD: [address] [place] [address] [address], [place] [address] , Ph. [phone] 2019-01-26 2019-01-26 Judy [facility] [place] - [address] [place] 00:00:00 00:00:00 Adan Ordoñez1 Elizabeth Davis Medicshila vieyra MD: 600 [facility], [address], [place] [address] , Ph. [phone] 2019-01-03 2019-01-03 Judy [facility] [place] - [address] [place] 00:00:00 00:00:00 Elizabeth Starks Medicshila vieyra MD: [address] [facility], [address] [address], [place] [address] , Ph. [phone] Results Test Description Test Time Test Comments Results Result Comments Source test, urine 2022-06-22 16:10:50 Test Item Value Reference Range Interpretation Comme nts Test (test code = Test) negative [facility] [Identifier] in Vaginal fluid by Wet [id number] 10:17:41 Test Item Value Reference Range Interpretation Comments Clue Cells (test code = Clue Cells) negative WBCs (test code = WBCs) negative Trichomonads (test code = negative Trichomonads) Epithelial cells (test code = normal Epithelial cells) RBCs (test code = RBCs) positive [facility], [id number] 18:02:09 Test Item Value Reference Range Interpretation Comments Test (test code = negative Test) [facility], [id number] 11:50:35 Test Item Value Reference Range Interpretation Comments Test (test code = negative Test) [facility], [id number] 15:40:27 Test Item Value Reference Range Interpretation Comments Test (test code = negative Test) [facility], [id number] 14:38:52 Test Item Value Reference Range Interpretation Comments Test (test code = negative Test) [facility] [id number] 14:38:52 Test Item Value Reference Range Interpretation Comments Test (test code = negative Test) [facility], [id number] 14:38:52 Test Item Value Reference Range Interpretation Comments Test (test code = negative Test) [facility], DNA, [id number] 00:00:00 Test Item Value Reference Range Interpretation Comments chlamydia trachomatis by real-time negative PCR (reflex to azithromycin resistance by pyrosequencing) (test code = chlamydia trachomatis by real-time PCR (reflex to azithromycin resistance by pyrosequencing)) trichomonas vaginalis by real-time negative PCR (reflex to metronidazole resistance) (test code = trichomonas vaginalis by real-time PCR (reflex to metronidazole resistance)) neisseria gonorrhoeae by real-time negative PCR (reflex to antibiotic resistance by molecular analysis) (test code = neisseria gonorrhoeae by real-time PCR (reflex to antibiotic resistance by molecular analysis)) [facility], DNA, [id number] 00:00:00 Test Item Value Reference Range Interpretation Comments chlamydia trachomatis by real-time negative PCR (reflex to azithromycin resistance by pyrosequencing) (test code = chlamydia trachomatis by real-time PCR (reflex to azithromycin resistance by pyrosequencing)) trichomonas vaginalis by real-time negative PCR (reflex to metronidazole resistance) (test code = trichomonas vaginalis by real-time PCR (reflex to metronidazole resistance)) neisseria gonorrhoeae by real-time negative PCR (reflex to antibiotic resistance by molecular analysis) (test code = neisseria gonorrhoeae by real-time PCR (reflex to antibiotic resistance by molecular analysis)) [facility], DNA, [id number] 00:00:00 Test Item Value Reference Range Interpretation Comments chlamydia trachomatis by real-time negative PCR (reflex to azithromycin resistance by pyrosequencing) (test code = chlamydia trachomatis by real-time PCR (reflex to azithromycin resistance by pyrosequencing)) trichomonas vaginalis by real-time negative PCR (reflex to metronidazole resistance) (test code = trichomonas vaginalis by real-time PCR (reflex to metronidazole resistance)) neisseria gonorrhoeae by real-time negative PCR (reflex to antibiotic resistance by molecular analysis) (test code = neisseria gonorrhoeae by real-time PCR (reflex to antibiotic resistance by molecular analysis)) [facility], LB + [id number] 00:00:00 Test Item Value Reference Range Interpretation Comments HPV type-detect 4.0 by real time not detected PCR high risk subtypes only (test code = HPV type-detect 4.0 by real time PCR high risk subtypes only) liquid Pap test (test code = normal liquid Pap test) [facility], LB + [id number] 00:00:00 Test Item Value Reference Range Interpretation Comments HPV type-detect 4.0 by real time not detected PCR high risk subtypes only (test code = HPV type-detect 4.0 by real time PCR high risk subtypes only) liquid Pap test (test code = normal liquid Pap test) [facility], LB + [id number] 00:00:00 Test Item Value Reference Range Interpretation Comments HPV type-detect 4.0 by real time not detected PCR high risk subtypes only (test code = HPV type-detect 4.0 by real time PCR high risk subtypes only) liquid Pap test (test code = normal liquid Pap test) [facility] W Auto Differential panel - [id number] 12:15:00 Test Item Value Reference Range Interpretation Comments white blood count (test code = 5.0 K/uL 4.0-11.5 white blood count) red blood count (test code = red 4.15 M/uL 3.80-5.20 blood count) hemoglobin (test code = 12.9 g/dL 10.5-15.7 hemoglobin) hematocrit (test code = 40.9 % 34.0-50.0 hematocrit) MCV [Entitic volume] (test code = 98.6 fL 86-100 47234-8) mean corpuscular hemoglobin (test 31.1 pg 26.2-33.4 code = mean corpuscular hemoglobin) mean corpuscular HGB conc (test 31.5 g/dL 30-34 code = mean corpuscular HGB conc) red cell distribution width (test 11.9 % 12.0-15.5 L code = red cell distribution width) platelet count (test code = 215 K/uL 165-450 platelet count) mean platelet volume (test code = 11.5 fL 9.4-12.6 mean platelet volume) Segmented neutrophils/100 46.5 % 44.4-80.1 leukocytes in Blood (test code = 08406-0) Immature granulocytes [#/volume] 0.0 K/uL 0.0-0.03 in Blood (test code = 45450-8) lymphocyte% (test code = 44.6 % 10.0-50.0 lymphocyte%) mono % (test code = mono %) 6.3 % 3.6-12.0 eos % (test code = eos %) 1.6 % 0.0-5.4 Basophils/100 leukocytes in 1.0 % 0.1-1.2 Unspecified specimen (test code = 13081-4) Band form neutrophils [#/volume] 2.34 K/uL 1.56-6.13 in Blood (test code = 76114-9) Lymphocytes [#/volume] in 2.3 K/uL 1.18-3.74 Unspecified specimen by Automated count (test code = 97119-0) mono # (test code = mono #) 0.32 K/uL 0.24-0.86 eos # (test code = eos #) 0.08 K/uL 0.04-0.36 basophil # (test code = basophil 0.05 K/uL 0.01-0.08 #) NRBC% (test code = NRBC%) 0 /100 WBC 0-0.2 NRBC# (test code = NRBC#) 0 K/uL [facility] 2000 [facility] - Serum or Plasma 2021-08-19 12:15:00 Test Item Value Reference Range Interpretation Comments glucose (test code = glucose) 51 mg/dL 74-106 L Urea nitrogen [Mass/volume] in 9 mg/dL 6-20 Serum or Plasma (test code = 3094-0) osmolality calculated,serum (test 275 mOsm/kg 280-300 L code = osmolality calculated,serum) creatinine (test code = 0.9 mg/dL 0.50-0.90 creatinine) glomerular filtration rate (test >60.00 code = glomerular filtration rate) Urea nitrogen/Creatinine [Mass 10.0 12-20 L Ratio] in Serum or Plasma (test code = 3097-3) sodium level (test code = sodium 140 mmol/L 135-145 level) Potassium [Moles/volume] in Body 3.9 mmol/L 3.5-5.2 fluid (test code = 2821-7) chloride level (test code = 103 mmol/L 98-108 chloride level) CO2 (test code = CO2) 26 mmol/L 21-32 anion gap (test code = anion gap) 14.9 mEq/L 12-20 calcium level (test code = 9.5 mg/dL 8.6-10.0 calcium level) total protein (test code = total 7.8 g/dL 6.6-8.7 protein) albumin (test code = albumin) 4.6 g/dL 3.5-5.2 globulin (test code = globulin) 3.2 gm/dL A/G ratio (test code = A/G ratio) 1.4 >1.0 bilirubin,total (test code = <0.3 0.0-1.2 bilirubin,total) AST/SGOT (test code = AST/SGOT) 17 U/L 15-32 Alanine aminotransferase 17 U/L 0-33 [Enzymatic activity/volume] in Serum or Plasma (test code = 1742-6) Alkaline phosphatase [Enzymatic 66 U/L 35-105 activity/volume] in Serum or Plasma (test code = 6768-6) [facility] W Auto Differential panel - [id number] 12:15:00 Test Item Value Reference Range Interpretation Comments white blood count (test code = 5.0 K/uL 4.0-11.5 white blood count) red blood count (test code = red 4.15 M/uL 3.80-5.20 blood count) hemoglobin (test code = 12.9 g/dL 10.5-15.7 hemoglobin) hematocrit (test code = 40.9 % 34.0-50.0 hematocrit) MCV [Entitic volume] (test code = 98.6 fL 86-100 66244-6) mean corpuscular hemoglobin (test 31.1 pg 26.2-33.4 code = mean corpuscular hemoglobin) mean corpuscular HGB conc (test 31.5 g/dL 30-34 code = mean corpuscular HGB conc) red cell distribution width (test 11.9 % 12.0-15.5 L code = red cell distribution width) platelet count (test code = 215 K/uL 165-450 platelet count) mean platelet volume (test code = 11.5 fL 9.4-12.6 mean platelet volume) Segmented neutrophils/100 46.5 % 44.4-80.1 leukocytes in Blood (test code = 38838-2) Immature granulocytes [#/volume] 0.0 K/uL 0.0-0.03 in Blood (test code = 73473-3) lymphocyte% (test code = 44.6 % 10.0-50.0 lymphocyte%) mono % (test code = mono %) 6.3 % 3.6-12.0 eos % (test code = eos %) 1.6 % 0.0-5.4 Basophils/100 leukocytes in 1.0 % 0.1-1.2 Unspecified specimen (test code = 58959-0) Band form neutrophils [#/volume] 2.34 K/uL 1.56-6.13 in Blood (test code = 00567-2) Lymphocytes [#/volume] in 2.3 K/uL 1.18-3.74 Unspecified specimen by Automated count (test code = 86009-8) mono # (test code = mono #) 0.32 K/uL 0.24-0.86 eos # (test code = eos #) 0.08 K/uL 0.04-0.36 basophil # (test code = basophil 0.05 K/uL 0.01-0.08 #) NRBC% (test code = NRBC%) 0 /100 WBC 0-0.2 NRBC# (test code = NRBC#) 0 K/uL [facility] 2000 [facility] - Serum or Plasma 2021-08-19 12:15:00 Test Item Value Reference Range Interpretation Comments glucose (test code = glucose) 51 mg/dL 74-106 L Urea nitrogen [Mass/volume] in 9 mg/dL 6-20 Serum or Plasma (test code = 3094-0) osmolality calculated,serum (test 275 mOsm/kg 280-300 L code = osmolality calculated,serum) creatinine (test code = 0.9 mg/dL 0.50-0.90 creatinine) glomerular filtration rate (test >60.00 code = glomerular filtration rate) Urea nitrogen/Creatinine [Mass 10.0 12-20 L Ratio] in Serum or Plasma (test code = 3097-3) sodium level (test code = sodium 140 mmol/L 135-145 level) Potassium [Moles/volume] in Body 3.9 mmol/L 3.5-5.2 fluid (test code = 2821-7) chloride level (test code = 103 mmol/L 98-108 chloride level) CO2 (test code = CO2) 26 mmol/L 21-32 anion gap (test code = anion gap) 14.9 mEq/L 12-20 calcium level (test code = 9.5 mg/dL 8.6-10.0 calcium level) total protein (test code = total 7.8 g/dL 6.6-8.7 protein) albumin (test code = albumin) 4.6 g/dL 3.5-5.2 globulin (test code = globulin) 3.2 gm/dL A/G ratio (test code = A/G ratio) 1.4 >1.0 bilirubin,total (test code = <0.3 0.0-1.2 bilirubin,total) AST/SGOT (test code = AST/SGOT) 17 U/L 15-32 Alanine aminotransferase 17 U/L 0-33 [Enzymatic activity/volume] in Serum or Plasma (test code = 1742-6) Alkaline phosphatase [Enzymatic 66 U/L 35-105 activity/volume] in Serum or Plasma (test code = 6768-6) [facility] W Auto Differential panel - [id number] 12:15:00 Test Item Value Reference Range Interpretation Comments white blood count (test code = 5.0 K/uL 4.0-11.5 white blood count) red blood count (test code = red 4.15 M/uL 3.80-5.20 blood count) hemoglobin (test code = 12.9 g/dL 10.5-15.7 hemoglobin) hematocrit (test code = 40.9 % 34.0-50.0 hematocrit) MCV [Entitic volume] (test code = 98.6 fL 86-100 82128-0) mean corpuscular hemoglobin (test 31.1 pg 26.2-33.4 code = mean corpuscular hemoglobin) mean corpuscular HGB conc (test 31.5 g/dL 30-34 code = mean corpuscular HGB conc) red cell distribution width (test 11.9 % 12.0-15.5 L code = red cell distribution width) platelet count (test code = 215 K/uL 165-450 platelet count) mean platelet volume (test code = 11.5 fL 9.4-12.6 mean platelet volume) Segmented neutrophils/100 46.5 % 44.4-80.1 leukocytes in Blood (test code = 54124-2) Immature granulocytes [#/volume] 0.0 K/uL 0.0-0.03 in Blood (test code = 45092-7) lymphocyte% (test code = 44.6 % 10.0-50.0 lymphocyte%) mono % (test code = mono %) 6.3 % 3.6-12.0 eos % (test code = eos %) 1.6 % 0.0-5.4 Basophils/100 leukocytes in 1.0 % 0.1-1.2 Unspecified specimen (test code = 88544-1) Band form neutrophils [#/volume] 2.34 K/uL 1.56-6.13 in Blood (test code = 69183-8) Lymphocytes [#/volume] in 2.3 K/uL 1.18-3.74 Unspecified specimen by Automated count (test code = 31835-5) mono # (test code = mono #) 0.32 K/uL 0.24-0.86 eos # (test code = eos #) 0.08 K/uL 0.04-0.36 basophil # (test code = basophil 0.05 K/uL 0.01-0.08 #) NRBC% (test code = NRBC%) 0 /100 WBC 0-0.2 NRBC# (test code = NRBC#) 0 K/uL [facility] 2000 [facility] - Serum or Plasma 2021-08-19 12:15:00 Test Item Value Reference Range Interpretation Comments glucose (test code = glucose) 51 mg/dL 74-106 L Urea nitrogen [Mass/volume] in 9 mg/dL 6-20 Serum or Plasma (test code = 3094-0) osmolality calculated,serum (test 275 mOsm/kg 280-300 L code = osmolality calculated,serum) creatinine (test code = 0.9 mg/dL 0.50-0.90 creatinine) glomerular filtration rate (test >60.00 code = glomerular filtration rate) Urea nitrogen/Creatinine [Mass 10.0 12-20 L Ratio] in Serum or Plasma (test code = 3097-3) sodium level (test code = sodium 140 mmol/L 135-145 level) Potassium [Moles/volume] in Body 3.9 mmol/L 3.5-5.2 fluid (test code = 2821-7) chloride level (test code = 103 mmol/L 98-108 chloride level) CO2 (test code = CO2) 26 mmol/L 21-32 anion gap (test code = anion gap) 14.9 mEq/L 12-20 calcium level (test code = 9.5 mg/dL 8.6-10.0 calcium level) total protein (test code = total 7.8 g/dL 6.6-8.7 protein) albumin (test code = albumin) 4.6 g/dL 3.5-5.2 globulin (test code = globulin) 3.2 gm/dL A/G ratio (test code = A/G ratio) 1.4 >1.0 bilirubin,total (test code = <0.3 0.0-1.2 bilirubin,total) AST/SGOT (test code = AST/SGOT) 17 U/L 15-32 Alanine aminotransferase 17 U/L 0-33 [Enzymatic activity/volume] in Serum or Plasma (test code = 1742-6) Alkaline phosphatase [Enzymatic 66 U/L 35-105 activity/volume] in Serum or Plasma (test code = 6768-6) [facility] CountyReagin Ab [Presence] in Serum by [id number] 00:00:00 Test Item Value Reference Range Interpretation Comments Reagin Ab [Presence] in Serum by nonreactive nonreactive RPR (test code = 08583-1) [facility] CountyDifferential panel, method unspecified - [id number] 00:00:00NeutrophilsBandLymphocyteAtypical LymphMonocyteEosinophilBasophilMetamyelocyteMyelocytePromyelocyteBlastsNucleated Red Blood CellAbs Neutrophil Count (Man)Abs Lymph Count (Man)Abs Monocyte Count (Man)Abs Eosinophil Count (Man)Abs Basophil Count (Man)Platelet EstimatePlatelet MorphologyPolychromasiaMacrocytosisHypersegmented Polys [facility] CountyThyrotropin [Units/volume] in Serum or [id number] 00:00:00 Test Item Value Reference Range Interpretation Comments Thyrotropin [Units/volume] in 0.95 uIU/mL 0.36-3.74 Serum or Plasma (test code = 3016-3) [facility] CountyThyroxine (T4) free [Mass/volume] in Serum or Plasma 2021-08-19 00:00:00 Test Item Value Reference Range Interpretation Comments free T4 (test code = free T4) 0.96 NG/dL 0.93-1.7 [facility] CountyHIV 1+2 Ab [Presence] in [id number] 00:00:00HIV P24 AgHIV-1/2 AbMaMer[facility] OaksHepatitis B virus surface Ag [Presence] in [id number] 00:00:00 Test Item Value Reference Range Interpretation Comments .hepatitis B surface antigen (test negative negative code = .hepatitis B surface antigen) [facility] CountyReagin Ab [Presence] in Serum by [id number] 00:00:00 Test Item Value Reference Range Interpretation Comments Reagin Ab [Presence] in Serum by nonreactive nonreactive RPR (test code = 84902-0) [facility] CountyDifferent[facility] panel, method unspecified - [id number] 00:00:00NeutrophilsBandLymphocyteAtypical LymphMonocyteEosinophilBasophilMetamyelocyteMyelocytePromyelocyteBlastsNucleated Red Blood CellAbs Neutrophil Count (Man)Abs Lymph Count (Man)Abs Monocyte Count (Man)Abs Eosinophil Count (Man)Abs Basophil Count (Man)Platelet EstimatePlatelet MorphologyPolychromasiaMacrocytosisHypersegmented Polys [facility] CountyThyrotropin [Units/volume] in Serum or [id number] 00:00:00 Test Item Value Reference Range Interpretation Comments Thyrotropin [Units/volume] in 0.95 uIU/mL 0.36-3.74 Serum or Plasma (test code = 3016-3) [facility] CountyThyroxine (T4) free [Mass/volume] in Serum or Plasma 2021-08-19 00:00:00 Test Item Value Reference Range Interpretation Comments free T4 (test code = free T4) 0.96 NG/dL 0.93-1.7 [facility] CountyHIV 1+2 Ab [Presence] in [id number] 00:00:00HIV P24 AgHIV-1/2 AbPatient'[facility] CountyHepatitis B virus surface Ag [Presence] in [id number] 00:00:00 Test Item Value Reference Range Interpretation Comments .hepatitis B surface antigen (test negative negative code = .hepatitis B surface antigen) [facility] CountyReagin Ab [Presence] in Serum by [id number] 00:00:00 Test Item Value Reference Range Interpretation Comments Reagin Ab [Presence] in Serum by nonreactive nonreactive RPR (test code = 46321-9) [facility]Different[facility] panel, method unspecified - [id number] 00:00:00NeutrophilsBandLymphocyteAtypical LymphMonocyteEosinophilBasophilMetamyelocyteMyelocytePromyelocyteBlastsNucleated Red Blood CellAbs Neutrophil Count (Man)Abs Lymph Count (Man)Abs Monocyte Count (Man)Abs Eosinophil Count (Man)Abs Basophil Count (Man)Platelet EstimatePlatelet MorphologyPolychromasiaMacrocytosisHypersegmented Polys [facility] CountyThyrotropin [Units/volume] in Serum or [id number] 00:00:00 Test Item Value Reference Range Interpretation Comments Thyrotropin [Units/volume] in 0.95 uIU/mL 0.36-3.74 Serum or Plasma (test code = 3016-3) [facility] CountyThyroxine (T4) free [Mass/volume] in Serum or Plasma 2021-08-19 00:00:00 Test Item Value Reference Range Interpretation Comments free T4 (test code = free T4) 0.96 NG/dL 0.93-1.7 [facility] CountyHIV 1+2 Ab [Presence] in [id number] 00:00:00HIV P24 AgHIV-1/2 AbPatient'S [facility] Of [facility] CountyHepatitis B virus surface Ag [Presence] in [id number] 00:00:00 Test Item Value Reference Range Interpretation Comments .hepatitis B surface antigen (test negative negative code = .hepatitis B surface antigen) [facility] CountyUrinalysis macro (dipstick) panel - [id number] 16:06:55 Test Item Value Reference Range Interpretation Comments Leukocytes (test code = Negative Leukocytes) Nitrite (test code = negative Nitrite) Urobilinogen (test code = .2 Urobilinogen) Protein (test code = Negative Protein) pH (test code = pH) 7.0 Blood (test code = Blood) Non-Hemolyzed: Trace Specific [place] (test 1.020 code = Specific [place]) Ketone (test code = Negative Ketone) Bilirubin (test code = Negative Bilirubin) Glucose (test code = Negative Glucose) Appearance (test code = Clear Appearance) Color (test code = Color) Yellow [facility] Countypregnancy test, [id number] 16:22:27 Test Item Value Reference Range Interpretation Comments Test (test code = negative Test) [facility], [id number] 16:22:27 Test Item Value Reference Range Interpretation Comments Test (test code = negative Test) [facility] CountyUrinalysis macro (dipstick) panel - [id number] 16:22:10 Test Item Value Reference Range Interpretation Comments Leukocytes (test code = Leukocytes) Negative Nitrite (test code = Nitrite) negative Urobilinogen (test code = .2 Urobilinogen) Protein (test code = Protein) Negative pH (test code = pH) 7.0 Blood (test code = Blood) Negative Specific [place] (test code = 1.025 Specific [place]) Ketone (test code = Ketone) Negative Bilirubin (test code = Bilirubin) Negative Glucose (test code = Glucose) Negative Appearance (test code = Appearance) Clear Color (test code = Color) Yellow [facility] CountyUrinalysis macro (dipstick) panel - [id number] 16:22:10 Test Item Value Reference Range Interpretation Comments Leukocytes (test code = Leukocytes) Negative Nitrite (test code = Nitrite) negative Urobilinogen (test code = .2 Urobilinogen) Protein (test code = Protein) Negative pH (test code = pH) 7.0 Blood (test code = Blood) Negative Specific [place] (test code = 1.025 Specific [place]) Ketone (test code = Ketone) Negative Bilirubin (test code = Bilirubin) Negative Glucose (test code = Glucose) Negative Appearance (test code = Appearance) Clear Color (test code = Color) Yellow [facility] CountyReagin Ab [Presence] in Serum by [id number] 06:56:00 Test Item Value Reference Range Interpretation Comments Reagin Ab [Presence] in Serum by nonreactive nonreactive RPR (test code = 10423-7) [facility] CountyHIV 1+2 Ab [Presence] in [id number] 06:56:00HIV P24 AgHIV-1/2 AbMatagoJefferson Davis Community HospitalHepatitis B virus surface Ag [Presence] in [id number] 06:56:00 Test Item Value Reference Range Interpretation Comments .hepatitis B surface antigen (test negative negative code = .hepatitis B surface antigen) [facility] [Units/volume] (viral load) in Serum or Plasma by Probe with signal [id number] 06:56:00 Test Item Value Reference Range Interpretation Comments hepatitis C RNA CHICO,qual (test code negative negative = hepatitis C RNA CHICO,qual) [facility] test, [id number] 11:12:00 Test Item Value Reference Range Interpretation Comments Test (test code = negative Test) [facility] THIRD [id number] 17:41:00 RUN DATE: 08/31/19 [facility] PAGE 1 RUN TIME: 914 Specimen Inquiry RUN USER: INTERFACE --PATIENT: ANJELICA NAVARRO LOC: JULY U #: [id number] AGE/SX: 29/F ROOM: 2023 RE08/02/19REG DR: Isaiah Chase MD : 89 BED: A DIS: 08/30/19 STATUS: DIS IN TLOC: SPEC #: [id number] RECD: 08/26/19 STATUS: SANDY SHILPI #: [id number] ILENE: 08/26/19- [facility] DR: Isaiah Chase MD ENTERED: 08/28/19 SP TYPE: PLACIII OTHR DR: ORDERED: LEVEL V SURGICA CODES: [id number] - PLACENTA, NOS PROCEDURES: LEVEL V SURGI CA (Incomplete) TISSUES: PLACENTA, NOS - PLACENTA CLINICAL HISTORY 28 year old, 35.5 weeks, [id number], section, abnormal cord doppler, severe IUGR, prematurity, non-reassuring monitoring, increased SD ratios (kr) FINAL DIAGNOSIS Placenta, 35.5 weeks gestational age, section: -third trimester placenta, 300 gms (10th percentile) - meconium macrophages within membranes - patchy villous edema - marginally inserted trivascular umbilical cord and membranes free of inflammation CPT code(s): 17477 [facility] 08/30/19 GROSS DESCRIPTION The specimen was received in a container, labeled with the patient's name, unit number and designated "placenta". The following attributes are observed: Cord insertion: Marginal Cord length: 38 cm Number of vessels: 3 Cord color: Pantoja Other cord findings: Slightly edematous and less than 12 twists/10 cm surface findings: Steel blue, wrinkled, and glistening Vasculature: Displays unremarkable blood vasculature Membranes rupture site: 3 c m to margin Membrane color: Pantoja Other membrane findings: Thickened The trimmed placental weight: 300 gm Disk measurement: 15.0 x 13.5 x 3.0 cm in greatest dimension CONTINUED ON NEXT PAGE ------- -----RUN DATE: 08/31/19 [facility] PAGE 2 RUN TIME: 914 Specimen Inquiry RUN USER: INTERFACE SPEC #: [id number] PATIENT: ANJELICA NAVARRO #[id number] (Continued) GROSS DESCRIPTION (Continued) Accessory lobes: None Maternal surface: Lobulated and intact Parenchyma: Red, beefy, and spongy with peripheral fibrosis Parenchyma lesions: None Cassettes: A1 through A4 carole/erum 08/28/19 @ 1207 Signed Gina Hurtado MD 08/30/19 1741 END OF REPORT CBC W/AUTO [id number] 08:08:00 Test Item Value Reference Range Interpretation Comments WHITE BLOOD CELL (test 8.0 K/mm3 6.6-12.1 Resul ts verified by code = WBC) repeat analysis RED BLOOD CELL (test 3.12 M/mm3 3.45-5.01 L code = RBC) HEMOGLOBIN (test code = 10.1 g/dL 10.7-13.9 L HGB) HEMATOCRIT (test code = 30.9 % 32.1-42.1 L HCT) MEAN CELL VOLUME (test 99 fL 84.1-94.8 H code = MCV) MEAN CELL HGB (test code 32.4 pg 27-35 N = MCH) MEAN CELL HGB 32.7 gm/dL 32.2-34.1 N CONCETRATION (test code = MCHC) RED CELL DISTRIBUTION 12.1 % 12.4-16.5 L WIDTH (test code = RDW) PLATELET COUNT (test 188 K/mm3 133-385 N code = PLT) IMMATURE PLATELET 0.0 % 0.0-10.8 N FRACTION (test code = IPF) MEAN PLATELET VOLUME 11.6 fl 9.1-12.7 N (test code = MPV) NEUTROPHIL % (test code 76.8 % 56.5-79.4 N = NT%) LYMPHOCYTE % (test code 14.2 % 14.3-34.3 L = LY%) MONOCYTE % (test code = 7.3 % 5.1-10.4 N MO%) EOSINOPHIL % (test code 0.9 % 0.1-3.0 N = EO%) BASOPHIL % (test code = 0.3 % 0.1-1.0 N BA%) NEUTROPHIL # (test code 6.1 K/mm3 = NT#) LYMPHOCYTE # (test code 1.1 K/mm3 = LY#) MONOCYTE # (test code = 0.6 K/mm3 MO#) EOSINOPHIL # (test code 0.07 K/mm3 = EO#) BASOPHIL # (test code = 0.0 K/mm3 BA#) RBC MORPHOLOGY REQUIRED NORMAL NORMAL (test code = RBCM) PLATELET MORPHOLOGY NORMAL NORMAL REQUIRED (test code = PLTMR) CBC W/AUTO [id number] 05:33:00 Test Item Value Reference Range Interpretation Comments WHITE BLOOD CELL (test code = WBC) 5.5 K/mm3 6.6-12.1 L RED BLOOD CELL (test code = RBC) 3.43 M/mm3 3.45-5.01 L HEMOGLOBIN (test code = HGB) 11.3 g/dL 10.7-13.9 N HEMATOCRIT (test code = HCT) 34.9 % 32.1-42.1 N MEAN CELL VOLUME (test code = MCV) 102 fL 84.1-94.8 H MEAN CELL HGB (test code = MCH) 32.9 pg 27-35 N MEAN CELL HGB CONCETRATION (test 32.4 gm/dL 32.2-34.1 N code = MCHC) RED CELL DISTRIBUTION WIDTH (test 12.6 % 12.4-16.5 N code = RDW) PLATELET COUNT (test code = PLT) 194 K/mm3 133-385 N MEAN PLATELET VOLUME (test code = 11.0 fl 9.1-12.7 N MPV) NEUTROPHIL % (test code = NT%) 58.3 % 56.5-79.4 N LYMPHOCYTE % (test code = LY%) 31.9 % 14.3-34.3 N MONOCYTE % (test code = MO%) 6.6 % 5.1-10.4 N EOSINOPHIL % (test code = EO%) 2.0 % 0.1-3.0 N BASOPHIL % (test code = BA%) 0.7 % 0.1-1.0 N NEUTROPHIL # (test code = NT#) 3.2 K/mm3 LYMPHOCYTE # (test code = LY#) 1.8 K/mm3 MONOCYTE # (test code = MO#) 0.4 K/mm3 EOSINOPHIL # (test code = EO#) 0.11 K/mm3 BASOPHIL # (test code = BA#) 0.0 K/mm3 RBC MORPHOLOGY REQUIRED (test code NORMAL NORMAL = RBCM) PLATELET MORPHOLOGY REQUIRED (test NORMAL NORMAL code = PLTMR) CBC W/AUTO [id number] 05:29:00 Test Item Value Reference Range Interpretation Comments WHITE BLOOD CELL (test code = WBC) 9.0 K/mm3 6.6-12.1 N RED BLOOD CELL (test code = RBC) 3.42 M/mm3 3.45-5.01 L HEMOGLOBIN (test code = HGB) 11.0 g/dL 10.7-13.9 N HEMATOCRIT (test code = HCT) 34.0 % 32.1-42.1 N MEAN CELL VOLUME (test code = MCV) 99 fL 84.1-94.8 H MEAN CELL HGB (test code = MCH) 32.2 pg 27-35 N MEAN CELL HGB CONCETRATION (test 32.4 gm/dL 32.2-34.1 N code = MCHC) RED CELL DISTRIBUTION WIDTH (test 12.4 % 12.4-16.5 N code = RDW) PLATELET COUNT (test code = PLT) 211 K/mm3 133-385 N IMMATURE PLATELET FRACTION (test 0.0 % 0.0-10.8 N code = IPF) MEAN PLATELET VOLUME (test code = 10.7 fl 9.1-12.7 N MPV) NEUTROPHIL % (test code = NT%) 65.1 % 56.5-79.4 N LYMPHOCYTE % (test code = LY%) 25.5 % 14.3-34.3 N MONOCYTE % (test code = MO%) 6.7 % 5.1-10.4 N EOSINOPHIL % (test code = EO%) 0.8 % 0.1-3.0 N BASOPHIL % (test code = BA%) 0.3 % 0.1-1.0 N NEUTROPHIL # (test code = NT#) 5.9 K/mm3 LYMPHOCYTE # (test code = LY#) 2.3 K/mm3 MONOCYTE # (test code = MO#) 0.6 K/mm3 EOSINOPHIL # (test code = EO#) 0.07 K/mm3 BASOPHIL # (test code = BA#) 0.0 K/mm3 RBC MORPHOLOGY REQUIRED (test code NORMAL NORMAL = RBCM) PLATELET MORPHOLOGY REQUIRED (test NORMAL NORMAL code = PLTMR) URINALYSIS [id number] 22:37:00 Test Item Value Reference Range Interpretation Comments UA COLOR (test code = COLU) YELLOW YELLOW UA APPEARANCE (test code = CLEAR CLEAR APPU) UA GLUCOSE DIPSTICK (test NEGATIVE NEG code = DGLUU) UA BILIRUBIN DIPSTICK (test NEGATIVE NEG code = BILU) UA KETONE DIPSTICK (test code NEGATIVE NEG = KETU) UA SPECIFIC GRAVITY (test 1.013 1.001-1.035 N code = SGU) UA BLOOD DIPSTICK (test code NEG NEG = MALIHA) UA PH DIPSTICK (test code = 7.0 5-9 BRIAN) UA PROTEIN DIPSTICK (test NEGATIVE NEG code = PROU) UA UROBILINIOGEN DIPSTICK NEGATIVE mg/dL NEG (test code = URO) UA NITRITE DIPSTICK (test NEG NEG code = SAVAGE) UA LEUKOCYTE ESTERASE NEG NEG DIPSTICK (test code = LEUU) UA WBC (test code = WBCU) 0-2 #/hpf NONE SEEN UA RBC (test code = RBCU) NONE SEEN #/hpf NONE SEEN UA EPITHELIAL CELLS (test RARE #/HPF RARE-FEW code = EPIU) UA BACTERIA (test code = RARE /HPF RARE-FEW BACU) UA MUCUS (test code = MUCU) RARE NONE SEEN CBC W/AUTO [id number] 18:07:00 Test Item Value Reference Range Interpretation Comments WHITE BLOOD CELL (test code = WBC) 12.9 K/mm3 6.6-12.1 H RED BLOOD CELL (test code = RBC) 3.35 M/mm3 3.45-5.01 L HEMOGLOBIN (test code = HGB) 10.9 g/dL 10.7-13.9 N HEMATOCRIT (test code = HCT) 33.3 % 32.1-42.1 N MEAN CELL VOLUME (test code = MCV) 99 fL 84.1-94.8 H MEAN CELL HGB (test code = MCH) 32.5 pg 27-35 N MEAN CELL HGB CONCETRATION (test 32.7 gm/dL 32.2-34.1 N code = MCHC) RED CELL DISTRIBUTION WIDTH (test 12.0 % 12.4-16.5 L code = RDW) PLATELET COUNT (test code = PLT) 216 K/mm3 133-385 N IMMATURE PLATELET FRACTION (test 0.0 % 0.0-10.8 N code = IPF) MEAN PLATELET VOLUME (test code = 11.2 fl 9.1-12.7 N MPV) NEUTROPHIL % (test code = NT%) 82.5 % 56.5-79.4 H LYMPHOCYTE % (test code = LY%) 12.8 % 14.3-34.3 L MONOCYTE % (test code = MO%) 4.0 % 5.1-10.4 L EOSINOPHIL % (test code = EO%) 0.0 % 0.1-3.0 L BASOPHIL % (test code = BA%) 0.1 % 0.1-1.0 N NEUTROPHIL # (test code = NT#) 10.7 K/mm3 LYMPHOCYTE # (test code = LY#) 1.7 K/mm3 MONOCYTE # (test code = MO#) 0.5 K/mm3 EOSINOPHIL # (test code = EO#) 0 K/mm3 BASOPHIL # (test code = BA#) 0.0 K/mm3 RBC MORPHOLOGY REQUIRED (test code NORMAL NORMAL = RBCM) PLATELET MORPHOLOGY REQUIRED (test NORMAL NORMAL code = PLTMR) AG HEPATITIS B [id number] 00:46:00 Test Item Value Reference Range Interpretation Comments AG HEPATITIS B SURFACE (test code NONREACTIVE NONREACTIVE = HBSAG) IS CONSENT FORM SIGNED FOR HIV TESTING? B HEPATITIS C [id number] 00:46:00 Test Item Value Reference Range Interpretation Comments AB HEPATITIS C (test code = NONREACTIVE NONREACTIVE HCVAB) SIGNAL TO CUTOFF (test code = 0.12 <0.80 N CUTOFF) IS CONSENT FORM SIGNED FOR HIV TESTING? YRUBELLA [id number] 00:46:00 Test Item Value Reference Range Interpretation Comments RUBELLA SCREEN 78.5 IUnit/ml Results >10. 0IUnits/ml (test code = are considered positive RUBSC) inaccordance wi th the CLSI guidelines and based on the [employer] S tandard for Anti-Rubell a serum as anindicator of immune status and a br eakpoint to detect mostseropositiv e persons. IS CONSENT FORM SIGNED FOR HIV TESTING? MAKENZIE [id number] 00:46:00 Test Item Value Reference Range Interpretation Comments AB TREPONEMA (test code = TREPAB) NONREACTIVE NONREACTIVE IS CONSENT FORM SIGNED FOR HIV TESTING? YAB HIV 1 00:46:00 Test Item Value Reference Range Interpretation Comments AB HIV 1 2 (test NONREACTIVE NONREACTIVE Done [facility] code = [id number]) 4th Gen HIV Ag/Ab Combo Screen IS CONSENT FORM SIGNED FOR HIV TESTING? YAG HEPATITIS B [id number] 00:10:00 Test Item Value Reference Range Interpretation Comments AG HEPATITIS B SURFACE (test code NONREACTIVE NONREACTIVE = HBSAG) IS CONSENT FORM SIGNED FOR HIV TESTING? YAB HEPATITIS C [id number] 00:10:00 Test Item Value Reference Range Interpretation Comments AB HEPATITIS C (test code = HCVAB) NONREACTIVE SIGNAL TO CUTOFF (test code = CUTOFF) <0.80 IS CONSENT FORM SIGNED FOR HIV TESTING? YRUBELLA [id number] 00:10:00 Test Item Value Reference Range Interpretation Comments RUBELLA SCREEN 78.5 IUnit/ml Results >10. 0IUnits/ml (test code = are considered positive RUBSC) inaccordance wi th the CLSI guidelines and based on the [employer] S tandard for Anti-Rubell a serum as anindicator of immune status and a br eakpoint to detect mostseropositiv e persons. IS CONSENT FORM SIGNED FOR HIV TESTING? GRETCHENB [id number] 00:10:00 Test Item Value Reference Range Interpretation Comments AB TREPONEMA (test code = TREPAB) NONREACTIVE NONREACTIVE IS CONSENT FORM SIGNED FOR HIV TESTING? YAB HIV 1 00:10:00 Test Item Value Reference Range Interpretation Comments AB HIV 1 2 (test code = [id number]) NONREACTIVE IS CONSENT FORM SIGNED FOR HIV TESTING? YCBC W/AUTO [id number] 23:05:00 Test Item Value Reference Range Interpretation Comments WHITE BLOOD CELL (test code = WBC) 6.7 K/mm3 6.6-12.1 N RED BLOOD CELL (test code = RBC) 3.18 M/mm3 3.45-5.01 L HEMOGLOBIN (test code = HGB) 10.4 g/dL 10.7-13.9 L HEMATOCRIT (test code = HCT) 31.4 % 32.1-42.1 L MEAN CELL VOLUME (test code = MCV) 99 fL 84.1-94.8 H MEAN CELL HGB (test code = MCH) 32.7 pg 27-35 N MEAN CELL HGB CONCETRATION (test 33.1 gm/dL 32.2-34.1 N code = MCHC) RED CELL DISTRIBUTION WIDTH (test 12.2 % 12.4-16.5 L code = RDW) PLATELET COUNT (test code = PLT) 202 K/mm3 133-385 N IMMATURE PLATELET FRACTION (test 0.0 % 0.0-10.8 N code = IPF) MEAN PLATELET VOLUME (test code = 11.3 fl 9.1-12.7 N MPV) NEUTROPHIL % (test code = NT%) 65.9 % 56.5-79.4 N LYMPHOCYTE % (test code = LY%) 26.0 % 14.3-34.3 N MONOCYTE % (test code = MO%) 6.1 % 5.1-10.4 N EOSINOPHIL % (test code = EO%) 1.2 % 0.1-3.0 N BASOPHIL % (test code = BA%) 0.4 % 0.1-1.0 N NEUTROPHIL # (test code = NT#) 4.4 K/mm3 LYMPHOCYTE # (test code = LY#) 1.7 K/mm3 MONOCYTE # (test code = MO#) 0.4 K/mm3 EOSINOPHIL # (test code = EO#) 0.08 K/mm3 BASOPHIL # (test code = BA#) 0.0 K/mm3 RBC MORPHOLOGY REQUIRED (test code NORMAL NORMAL = RBCM) PLATELET MORPHOLOGY REQUIRED (test NORMAL NORMAL code = PLTMR) Biophysical profile panel [id number] 09:13:00 Test Item Value Reference Range Interpretation Comments Amniotic Fluid Index (test code = 2 Amniotic Fluid Index) Tone (test code = Tone) 2 Breathing (test code = 2 Breathing) Movement (test code = 2 Movement) [facility] [id number] 09:13:00 Test Item Value Reference Range Interpretation Comments Amniotic Fluid Index (test code = 2 Amniotic Fluid Index) Tone (test code = Tone) 2 Breathing (test code = 2 Breathing) Movement (test code = 2 Movement) [facility] [id number] 09:13:00 Test Item Value Reference Range Interpretation Comments Amniotic Fluid Index (test code = 2 Amniotic Fluid Index) Tone (test code = Tone) 2 Breathing (test code = 2 Breathing) Movement (test code = 2 Movement) [facility] County[facility]inal[facility] macro (dipstick) panel - [id number] 09:21:00 Test Item Value Reference Range Interpretation Comments Leukocytes (test code = Trace Leukocytes) Nitrite (test code = Nitrite) negative Urobilinogen (test code = .2 Urobilinogen) Protein (test code = Protein) Negative pH (test code = pH) 7.0 Blood (test code = Blood) Negative Specific [place] (test code = 1.020 Specific [place]) Ketone (test code = Ketone) Negative Bilirubin (test code = Bilirubin) Negative Glucose (test code = Glucose) Negative Appearance (test code = Clear Appearance) Color (test code = Color) Dark Yellow [facility]inal[facility] macro (dipstick) panel - [id number] 11:07:00 Test Item Value Reference Range Interpretation Comments Leukocytes (test code = Leukocytes) Negative Nitrite (test code = Nitrite) negative Urobilinogen (test code = 1 Urobilinogen) Protein (test code = Protein) Negative pH (test code = pH) 7.0 Blood (test code = Blood) Negative Specific [place] (test code = 1.020 Specific [place]) Ketone (test code = Ketone) Negative Bilirubin (test code = Bilirubin) Negative Glucose (test code = Glucose) Negative Appearance (test code = Appearance) Clear Color (test code = Color) Yellow [facility] County[facility]ida sp DNA [Presence] in Vaginal fluid by Probe and target amplification [id number] 00:00:00 Test Item Value Reference Range Interpretation Comments luis m albicans by real-time PCR positive A (test code = luis m albicans by real-time PCR) luis m tropicalis by real-time PCR negative (test code = luis m tropicalis by real-time PCR) luis m parapsilosis by real-time negative PCR (test code = luis m parapsilosis by real-time PCR) luis m glabrata by real-time PCR negative (test code = luis m glabrata by real-time PCR) [facility] DNA [Presence] in Vaginal fluid by Probe and target amplification [id number] 00:00:00 Test Item Value Reference Range Interpretation Comments luis m albicans by real-time PCR positive A (test code = luis m albicans by real-time PCR) luis m tropicalis by real-time PCR negative (test code = luis m tropicalis by real-time PCR) luis m parapsilosis by real-time negative PCR (test code = luis m parapsilosis by real-time PCR) luis m glabrata by real-time PCR negative (test code = luis m glabrata by real-time PCR) [facility] CountyCand[facility] sp DNA [Presence] in Vaginal fluid by Probe and target amplification [id number] 00:00:00 Test Item Value Reference Range Interpretation Comments luis m albicans by real-time PCR positive A (test code = luis m albicans by real-time PCR) luis m tropicalis by real-time PCR negative (test code = luis m tropicalis by real-time PCR) luis m parapsilosis by real-time negative PCR (test code = luis m parapsilosis by real-time PCR) luis m glabrata by real-time PCR negative (test code = luis m glabrata by real-time PCR) [facility] count [#/volume] in [id number] 00:00:00 Test Item Value Reference Range Interpretation Comments group B streptococcus (gbs) by negative real-time PCR (test code = group B streptococcus (gbs) by real-time PCR) escherichia coli by real-time PCR negative (test code = escherichia coli by real-time PCR) proteus mirabilis by real-time PCR negative (test code = proteus mirabilis by real-time PCR) staphylococcus saprophyticus by negative real-time PCR (test code = staphylococcus saprophyticus by real-time PCR) enterococcus faecalis by real-time negative PCR (test code = enterococcus faecalis by real-time PCR) enterococcus faecium by real-time negative PCR (test code = enterococcus faecium by real-time PCR) klebsiella species by real-time PCR negative (reflex to speciation by pyrosequencing) (test code = klebsiella species by real-time PCR (reflex to speciation by pyrosequencing)) pseudomonas aeruginosa by real-time negative PCR (test code = pseudomonas aeruginosa by real-time PCR) [facility], [id number] 00:00:00 Test Item Value Reference Range Interpretation Comments gardnerella vaginalis by positive A real-time PCR (test code = gardnerella vaginalis by real-time PCR) atopobium vaginae by real-time positive A PCR (test code = atopobium vaginae by real-time PCR) bacterial vaginosis associated positive A bacterium 2 (bvab2) by real-time PCR (test code = bacterial vaginosis associated bacterium 2 (bvab2) by real-time PCR) megasphaera species (type 1 and positive A type 2) by real-time PCR (test code = megasphaera species (type 1 and type 2) by real-time PCR) lactobacillus (bv & av panel) by see comment real time PCR (test code = lactobacillus (bv & av panel) by real time PCR) [facility] count [#/volume] in [id number] 00:00:00 Test Item Value Reference Range Interpretation Comments group B streptococcus (gbs) by negative real-time PCR (test code = group B streptococcus (gbs) by real-time PCR) escherichia coli by real-time PCR negative (test code = escherichia coli by real-time PCR) proteus mirabilis by real-time PCR negative (test code = proteus mirabilis by real-time PCR) staphylococcus saprophyticus by negative real-time PCR (test code = staphylococcus saprophyticus by real-time PCR) enterococcus faecalis by real-time negative PCR (test code = enterococcus faecalis by real-time PCR) enterococcus faecium by real-time negative PCR (test code = enterococcus faecium by real-time PCR) klebsiella species by real-time PCR negative (reflex to speciation by pyrosequencing) (test code = klebsiella species by real-time PCR (reflex to speciation by pyrosequencing)) pseudomonas aeruginosa by real-time negative PCR (test code = pseudomonas aeruginosa by real-time PCR) [facility], [id number] 00:00:00 Test Item Value Reference Range Interpretation Comments gardnerella vaginalis by positive A real-time PCR (test code = gardnerella vaginalis by real-time PCR) atopobium vaginae by real-time positive A PCR (test code = atopobium vaginae by real-time PCR) bacterial vaginosis associated positive A bacterium 2 (bvab2) by real-time PCR (test code = bacterial vaginosis associated bacterium 2 (bvab2) by real-time PCR) megasphaera species (type 1 and positive A type 2) by real-time PCR (test code = megasphaera species (type 1 and type 2) by real-time PCR) lactobacillus (bv & av panel) by see comment real time PCR (test code = lactobacillus (bv & av panel) by real time PCR) [facility] County[facility] count [#/volume] in [id number] 00:00:00 Test Item Value Reference Range Interpretation Comments group B streptococcus (gbs) by negative real-time PCR (test code = group B streptococcus (gbs) by real-time PCR) escherichia coli by real-time PCR negative (test code = escherichia coli by real-time PCR) proteus mirabilis by real-time PCR negative (test code = proteus mirabilis by real-time PCR) staphylococcus saprophyticus by negative real-time PCR (test code = staphylococcus saprophyticus by real-time PCR) enterococcus faecalis by real-time negative PCR (test code = enterococcus faecalis by real-time PCR) enterococcus faecium by real-time negative PCR (test code = enterococcus faecium by real-time PCR) klebsiella species by real-time PCR negative (reflex to speciation by pyrosequencing) (test code = klebsiella species by real-time PCR (reflex to speciation by pyrosequencing)) pseudomonas aeruginosa by real-time negative PCR (test code = pseudomonas aeruginosa by real-time PCR) [facility], [id number] 00:00:00 Test Item Value Reference Range Interpretation Comments gardnerella vaginalis by positive A real-time PCR (test code = gardnerella vaginalis by real-time PCR) atopobium vaginae by real-time positive A PCR (test code = atopobium vaginae by real-time PCR) bacterial vaginosis associated positive A bacterium 2 (bvab2) by real-time PCR (test code = bacterial vaginosis associated bacterium 2 (bvab2) by real-time PCR) megasphaera species (type 1 and positive A type 2) by real-time PCR (test code = megasphaera species (type 1 and type 2) by real-time PCR) lactobacillus (bv & av panel) by see comment real time PCR (test code = lactobacillus (bv & av panel) by real time PCR) [facility] [id number] 09:45:00Results [facility] [id number] 09:45:00Results [facility] [id number] 09:45:00Results [facility] CountyCBC W Auto Differential panel - [id number] 04:12:00 Test Item Value Reference Range Interpretation Comments white blood count (test code = 7.2 K/uL 4.0-11.5 white blood count) red blood count (test code = red 3.69 M/uL 3.80-5.20 L blood count) Hemoglobin [Mass/volume] in Blood 11.5 g/dL 10.5-15.7 (test code = 718-7) hematocrit (test code = hematocrit) 35.0 % 34.0-50.0 Erythrocyte mean corpuscular volume 94.8 fL 78-98 [Entitic volume] (test code = 28209-4) Erythrocyte mean corpuscular 31.3 pg 26.2-33.4 hemoglobin [Entitic mass] (test code = 49795-9) mean corpuscular HGB conc (test 33.0 g/dL 31.5-36.2 code = mean corpuscular HGB conc) red cell distribution width (test 11.3 % 11.5-15.5 L code = red cell distribution width) Platelets [#/volume] in Blood (test 221 K/uL 137-338 code = 86433-9) Platelet mean volume [Entitic 8.5 fL 8.4-11.8 volume] in Blood (test code = 81135-4) Neutrophils.band form/100 95.1 % 44.4-80.1 leukocytes in Blood (test code = 20342-1) Lymphocytes/100 leukocytes in Body 4.0 % 10.0-50.0 L fluid (test code = 18775-4) Monocytes/100 leukocytes in Blood 0.6 % 3.6-12.04 L by Automated count (test code = 5905-5) Eosinophils/100 leukocytes in Blood 0.1 % 0.0-5.41 by Automated count (test code = 713-8) Basophils/100 leukocytes in 0.2 % 0.0-0.79 Unspecified specimen (test code = 41424-5) [facility], [id number] 04:12:00 NeutrophilsBandLymphocyteAtypical LymphMonocyteEosinophilBasophilPlatelet EstimatePlatelet MorphologyTarget CellsToxic GranulationToxic Vacuolation [facility] W Auto Differential panel - [id number] 04:12:00 Test Item Value Reference Range Interpretation Comments white blood count (test code = 7.2 K/uL 4.0-11.5 white blood count) red blood count (test code = red 3.69 M/uL 3.80-5.20 L blood count) Hemoglobin [Mass/volume] in Blood 11.5 g/dL 10.5-15.7 (test code = 718-7) hematocrit (test code = hematocrit) 35.0 % 34.0-50.0 Erythrocyte mean corpuscular volume 94.8 fL 78-98 [Entitic volume] (test code = 12291-3) Erythrocyte mean corpuscular 31.3 pg 26.2-33.4 hemoglobin [Entitic mass] (test code = 66824-8) mean corpuscular HGB conc (test 33.0 g/dL 31.5-36.2 code = mean corpuscular HGB conc) red cell distribution width (test 11.3 % 11.5-15.5 L code = red cell distribution width) Platelets [#/volume] in Blood (test 221 K/uL 137-338 code = 95087-1) Platelet mean volume [Entitic 8.5 fL 8.4-11.8 volume] in Blood (test code = 91174-1) Neutrophils.band form/100 95.1 % 44.4-80.1 leukocytes in Blood (test code = 17000-8) Lymphocytes/100 leukocytes in Body 4.0 % 10.0-50.0 L fluid (test code = 27278-3) Monocytes/100 leukocytes in Blood 0.6 % 3.6-12.04 L by Automated count (test code = 5905-5) Eosinophils/100 leukocytes in Blood 0.1 % 0.0-5.41 by Automated count (test code = 713-8) Basophils/100 leukocytes in 0.2 % 0.0-0.79 Unspecified specimen (test code = 94472-8) [facility], [id number] 04:12:00 NeutrophilsBandLymphocyteAtypical LymphMonocyteEosinophilBasophilPlatelet EstimatePlatelet MorphologyTarget CellsToxic GranulationToxic Vacuolation [facility] W Auto Differential panel - [id number] 04:12:00 Test Item Value Reference Range Interpretation Comments white blood count (test code = 7.2 K/uL 4.0-11.5 white blood count) red blood count (test code = red 3.69 M/uL 3.80-5.20 L blood count) Hemoglobin [Mass/volume] in Blood 11.5 g/dL 10.5-15.7 (test code = 718-7) hematocrit (test code = hematocrit) 35.0 % 34.0-50.0 Erythrocyte mean corpuscular volume 94.8 fL 78-98 [Entitic volume] (test code = 54861-1) Erythrocyte mean corpuscular 31.3 pg 26.2-33.4 hemoglobin [Entitic mass] (test code = 64886-0) mean corpuscular HGB conc (test 33.0 g/dL 31.5-36.2 code = mean corpuscular HGB conc) red cell distribution width (test 11.3 % 11.5-15.5 L code = red cell distribution width) Platelets [#/volume] in Blood (test 221 K/uL 137-338 code = 81144-2) Platelet mean volume [Entitic 8.5 fL 8.4-11.8 volume] in Blood (test code = 37229-5) Neutrophils.band form/100 95.1 % 44.4-80.1 leukocytes in Blood (test code = 98242-2) Lymphocytes/100 leukocytes in Body 4.0 % 10.0-50.0 L fluid (test code = 73121-5) Monocytes/100 leukocytes in Blood 0.6 % 3.6-12.04 L by Automated count (test code = 5905-5) Eosinophils/100 leukocytes in Blood 0.1 % 0.0-5.41 by Automated count (test code = 713-8) Basophils/100 leukocytes in 0.2 % 0.0-0.79 Unspecified specimen (test code = 47503-7) [facility], [id number] 04:12:00 NeutrophilsBandLymphocyteAtypical LymphMonocyteEosinophilBasophilPlatelet EstimatePlatelet MorphologyTarget CellsToxic GranulationToxic Vacuolation [facility] W Auto Differential panel - [id number] 03:30:00 Test Item Value Reference Range Interpretation Comments white blood count (test code = 4.3 K/uL 4.0-11.5 white blood count) red blood count (test code = red 3.20 M/uL 3.80-5.20 L blood count) Hemoglobin [Mass/volume] in Blood 10.0 g/dL 10.5-15.7 L (test code = 718-7) hematocrit (test code = hematocrit) 30.6 % 34.0-50.0 Erythrocyte mean corpuscular volume 95.8 fL 78-98 [Entitic volume] (test code = 21176-5) Erythrocyte mean corpuscular 31.2 pg 26.2-33.4 hemoglobin [Entitic mass] (test code = 11445-3) mean corpuscular HGB conc (test 32.6 g/dL 31.5-36.2 code = mean corpuscular HGB conc) red cell distribution width (test 11.2 % 11.5-15.5 L code = red cell distribution width) Platelets [#/volume] in Blood (test 184 K/uL 137-338 code = 51214-7) Platelet mean volume [Entitic 8.4 fL 8.4-11.8 volume] in Blood (test code = 33814-6) Neutrophils.band form/100 59.6 % 44.4-80.1 leukocytes in Blood (test code = 94610-4) Lymphocytes/100 leukocytes in Body 31.9 % 10.0-50.0 fluid (test code = 68896-2) Monocytes/100 leukocytes in Blood 5.9 % 3.6-12.04 by Automated count (test code = 5905-5) Eosinophils/100 leukocytes in Blood 1.0 % 0.0-5.41 by Automated count (test code = 713-8) Basophils/100 leukocytes in 1.5 % 0.0-0.79 H Unspecified specimen (test code = 80677-6) [facility] [id number] 03:30:00 NeutrophilsLymphocyteMonocytePlatelet EstimatePlatelet MorphologyPatient'S Choice [facility] CountyComprehensive metabolic 2000 panel - Serum or [id number] 03:30:00 Test Item Value Reference Range Interpretation Comments glucose (test code = glucose) 116 mg/dL 74-106 H Urea nitrogen [Mass/volume] in 3 mg/dL 6-20 L Serum or Plasma (test code = 3094-0) Osmolality of Serum or Plasma 268 280-300 L (test code = 2692-2) creatinine (test code = 0.6 mg/dL 0.50-0.90 creatinine) glomerular filtration rate (test >60.00 code = glomerular filtration rate) Urea nitrogen/Creatinine [Mass 5.0 12-20 L Ratio] in Serum or Plasma (test code = 3097-3) sodium level (test code = sodium 135 mmol/L 135-145 level) Potassium [Moles/volume] in Body 3.5 mmol/L 3.5-5.2 fluid (test code = 2821-7) chloride level (test code = 107 mmol/L 98-108 chloride level) CO2 (test code = CO2) 21 mmol/L 21-32 anion gap (test code = anion gap) 10.5 mEq/L 12-20 L calcium level (test code = calcium 8.1 mg/dL 8.6-10.0 L level) total protein (test code = total 5.4 g/dL 6.6-8.7 L protein) albumin (test code = albumin) 3.0 g/dL 3.5-5.2 L globulin (test code = globulin) 2.4 gm/dL A/G ratio (test code = A/G ratio) 1.3 >1.0 bilirubin,total (test code = 0.4 mg/dL 0.0-1.2 bilirubin,total) AST/SGOT (test code = AST/SGOT) 17 U/L 15-32 Alanine aminotransferase 38 U/L 0-33 H [Enzymatic activity/volume] in Serum or Plasma (test code = 1742-6) Alkaline phosphatase [Enzymatic 52 U/L 35-105 activity/volume] in Serum or Plasma (test code = 6768-6) [facility] W Auto Differential panel - [id number] 03:30:00 Test Item Value Reference Range Interpretation Comments white blood count (test code = 4.3 K/uL 4.0-11.5 white blood count) red blood count (test code = red 3.20 M/uL 3.80-5.20 L blood count) Hemoglobin [Mass/volume] in Blood 10.0 g/dL 10.5-15.7 L (test code = 718-7) hematocrit (test code = hematocrit) 30.6 % 34.0-50.0 Erythrocyte mean corpuscular volume 95.8 fL 78-98 [Entitic volume] (test code = 88746-2) Erythrocyte mean corpuscular 31.2 pg 26.2-33.4 hemoglobin [Entitic mass] (test code = 25370-1) mean corpuscular HGB conc (test 32.6 g/dL 31.5-36.2 code = mean corpuscular HGB conc) red cell distribution width (test 11.2 % 11.5-15.5 L code = red cell distribution width) Platelets [#/volume] in Blood (test 184 K/uL 137-338 code = 41728-7) Platelet mean volume [Entitic 8.4 fL 8.4-11.8 volume] in Blood (test code = 67584-2) Neutrophils.band form/100 59.6 % 44.4-80.1 leukocytes in Blood (test code = 49640-4) Lymphocytes/100 leukocytes in Body 31.9 % 10.0-50.0 fluid (test code = 03732-7) Monocytes/100 leukocytes in Blood 5.9 % 3.6-12.04 by Automated count (test code = 5905-5) Eosinophils/100 leukocytes in Blood 1.0 % 0.0-5.41 by Automated count (test code = 713-8) Basophils/100 leukocytes in 1.5 % 0.0-0.79 H Unspecified specimen (test code = 12183-2) [facility], [id number] 03:30:00 NeutrophilsLymphocyteMonocytePlatelet EstimatePlatelet MorphologyMaMerit Health River OaksComprehensive metabolic 2000 panel - Serum or [id number] 03:30:00 Test Item Value Reference Range Interpretation Comments glucose (test code = glucose) 116 mg/dL 74-106 H Urea nitrogen [Mass/volume] in 3 mg/dL 6-20 L Serum or Plasma (test code = 3094-0) Osmolality of Serum or Plasma 268 280-300 L (test code = 2692-2) creatinine (test code = 0.6 mg/dL 0.50-0.90 creatinine) glomerular filtration rate (test >60.00 code = glomerular filtration rate) Urea nitrogen/Creatinine [Mass 5.0 12-20 L Ratio] in Serum or Plasma (test code = 3097-3) sodium level (test code = sodium 135 mmol/L 135-145 level) Potassium [Moles/volume] in Body 3.5 mmol/L 3.5-5.2 fluid (test code = 2821-7) chloride level (test code = 107 mmol/L 98-108 chloride level) CO2 (test code = CO2) 21 mmol/L 21-32 anion gap (test code = anion gap) 10.5 mEq/L 12-20 L calcium level (test code = calcium 8.1 mg/dL 8.6-10.0 L level) total protein (test code = total 5.4 g/dL 6.6-8.7 L protein) albumin (test code = albumin) 3.0 g/dL 3.5-5.2 L globulin (test code = globulin) 2.4 gm/dL A/G ratio (test code = A/G ratio) 1.3 >1.0 bilirubin,total (test code = 0.4 mg/dL 0.0-1.2 bilirubin,total) AST/SGOT (test code = AST/SGOT) 17 U/L 15-32 Alanine aminotransferase 38 U/L 0-33 H [Enzymatic activity/volume] in Serum or Plasma (test code = 1742-6) Alkaline phosphatase [Enzymatic 52 U/L 35-105 activity/volume] in Serum or Plasma (test code = 6768-6) [facility] W Auto Differential panel - [id number] 03:30:00 Test Item Value Reference Range Interpretation Comments white blood count (test code = 4.3 K/uL 4.0-11.5 white blood count) red blood count (test code = red 3.20 M/uL 3.80-5.20 L blood count) Hemoglobin [Mass/volume] in Blood 10.0 g/dL 10.5-15.7 L (test code = 718-7) hematocrit (test code = hematocrit) 30.6 % 34.0-50.0 Erythrocyte mean corpuscular volume 95.8 fL 78-98 [Entitic volume] (test code = 53176-0) Erythrocyte mean corpuscular 31.2 pg 26.2-33.4 hemoglobin [Entitic mass] (test code = 19842-3) mean corpuscular HGB conc (test 32.6 g/dL 31.5-36.2 code = mean corpuscular HGB conc) red cell distribution width (test 11.2 % 11.5-15.5 L code = red cell distribution width) Platelets [#/volume] in Blood (test 184 K/uL 137-338 code = 45192-2) Platelet mean volume [Entitic 8.4 fL 8.4-11.8 volume] in Blood (test code = 71533-8) Neutrophils.band form/100 59.6 % 44.4-80.1 leukocytes in Blood (test code = 18150-4) Lymphocytes/100 leukocytes in Body 31.9 % 10.0-50.0 fluid (test code = 95332-9) Monocytes/100 leukocytes in Blood 5.9 % 3.6-12.04 by Automated count (test code = 5905-5) Eosinophils/100 leukocytes in Blood 1.0 % 0.0-5.41 by Automated count (test code = 713-8) Basophils/100 leukocytes in 1.5 % 0.0-0.79 H Unspecified specimen (test code = 52920-8) [facility], [id number] 03:30:00 NeutrophilsLymphocyteMonocytePlatelet EstimatePlatelet MorphologyPatient'S [facility] CountyComprehensive metabolic 2000 panel - Serum or [id number] 03:30:00 Test Item Value Reference Range Interpretation Comments glucose (test code = glucose) 116 mg/dL 74-106 H Urea nitrogen [Mass/volume] in 3 mg/dL 6-20 L Serum or Plasma (test code = 3094-0) Osmolality of Serum or Plasma 268 280-300 L (test code = 2692-2) creatinine (test code = 0.6 mg/dL 0.50-0.90 creatinine) glomerular filtration rate (test >60.00 code = glomerular filtration rate) Urea nitrogen/Creatinine [Mass 5.0 12-20 L Ratio] in Serum or Plasma (test code = 3097-3) sodium level (test code = sodium 135 mmol/L 135-145 level) Potassium [Moles/volume] in Body 3.5 mmol/L 3.5-5.2 fluid (test code = 2821-7) chloride level (test code = 107 mmol/L 98-108 chloride level) CO2 (test code = CO2) 21 mmol/L 21-32 anion gap (test code = anion gap) 10.5 mEq/L 12-20 L calcium level (test code = calcium 8.1 mg/dL 8.6-10.0 L level) total protein (test code = total 5.4 g/dL 6.6-8.7 L protein) albumin (test code = albumin) 3.0 g/dL 3.5-5.2 L globulin (test code = globulin) 2.4 gm/dL A/G ratio (test code = A/G ratio) 1.3 >1.0 bilirubin,total (test code = 0.4 mg/dL 0.0-1.2 bilirubin,total) AST/SGOT (test code = AST/SGOT) 17 U/L 15-32 Alanine aminotransferase 38 U/L 0-33 H [Enzymatic activity/volume] in Serum or Plasma (test code = 1742-6) Alkaline phosphatase [Enzymatic 52 U/L 35-105 activity/volume] in Serum or Plasma (test code = 6768-6) [facility] CountyCBC [facility] Auto Differential panel - [id number] 12:57:00 Test Item Value Reference Range Interpretation Comments white blood count (test code = 4.5 K/uL 4.0-11.5 white blood count) red blood count (test code = red 4.04 M/uL 3.80-5.20 blood count) Hemoglobin [Mass/volume] in Blood 12.7 g/dL 10.5-15.7 (test code = 718-7) hematocrit (test code = hematocrit) 38.3 % 34.0-50.0 Erythrocyte mean corpuscular volume 94.8 fL 78-98 [Entitic volume] (test code = 48402-4) Erythrocyte mean corpuscular 31.5 pg 26.2-33.4 hemoglobin [Entitic mass] (test code = 93647-4) mean corpuscular HGB conc (test 33.2 g/dL 31.5-36.2 code = mean corpuscular HGB conc) red cell distribution width (test 11.2 % 11.5-15.5 L code = red cell distribution width) Platelets [#/volume] in Blood (test 261 K/uL 137-338 code = 52026-0) Platelet mean volume [Entitic 9.0 fL 8.4-11.8 volume] in Blood (test code = 89792-7) Neutrophils.band form/100 67.1 % 44.4-80.1 leukocytes in Blood (test code = 32765-0) Lymphocytes/100 leukocytes in Body 24.5 % 10.0-50.0 fluid (test code = 43342-7) Monocytes/100 leukocytes in Blood 6.1 % 3.6-12.04 by Automated count (test code = 5905-5) Eosinophils/100 leukocytes in Blood 0.4 % 0.0-5.41 by Automated count (test code = 713-8) Basophils/100 leukocytes in 1.9 % 0.0-0.79 H Unspecified specimen (test code = 18927-9) [facility], [id number] 12:57:00 NeutrophilsLymphocyteMonocytePlatelet EstimatePlatelet MorphologyMataCovington County HospitalComprehensive metabolic 2000 panel - Serum or [id number] 12:57:00 Test Item Value Reference Range Interpretation Comments glucose (test code = glucose) 94 mg/dL 74-106 Urea nitrogen [Mass/volume] in 5 mg/dL 6-20 L Serum or Plasma (test code = 3094-0) Osmolality of Serum or Plasma 265 280-300 L (test code = 2692-2) creatinine (test code = 0.7 mg/dL 0.50-0.90 creatinine) glomerular filtration rate (test >60.00 code = glomerular filtration rate) Urea nitrogen/Creatinine [Mass 7.1 12-20 L Ratio] in Serum or Plasma (test code = 3097-3) sodium level (test code = sodium 134 mmol/L 135-145 L level) Potassium [Moles/volume] in Body 3.3 mmol/L 3.5-5.2 L fluid (test code = 2821-7) chloride level (test code = 97 mmol/L 98-108 L chloride level) CO2 (test code = CO2) 22 mmol/L 21-32 anion gap (test code = anion gap) 18.3 mEq/L 12-20 calcium level (test code = calcium 9.7 mg/dL 8.6-10.0 level) total protein (test code = total 7.6 g/dL 6.6-8.7 protein) albumin (test code = albumin) 4.1 g/dL 3.5-5.2 globulin (test code = globulin) 3.5 gm/dL A/G ratio (test code = A/G ratio) 1.2 >1.0 bilirubin,total (test code = 0.7 mg/dL 0.0-1.2 bilirubin,total) AST/SGOT (test code = AST/SGOT) 23 U/L 15-32 Alanine aminotransferase 56 U/L 0-33 H [Enzymatic activity/volume] in Serum or Plasma (test code = 1742-6) Alkaline phosphatase [Enzymatic 71 U/L 35-105 activity/volume] in Serum or Plasma (test code = 6768-6) [facility] W Auto Differential panel - [id number] 12:57:00 Test Item Value Reference Range Interpretation Comments white blood count (test code = 4.5 K/uL 4.0-11.5 white blood count) red blood count (test code = red 4.04 M/uL 3.80-5.20 blood count) Hemoglobin [Mass/volume] in Blood 12.7 g/dL 10.5-15.7 (test code = 718-7) hematocrit (test code = hematocrit) 38.3 % 34.0-50.0 Erythrocyte mean corpuscular volume 94.8 fL 78-98 [Entitic volume] (test code = 70346-1) Erythrocyte mean corpuscular 31.5 pg 26.2-33.4 hemoglobin [Entitic mass] (test code = 04427-4) mean corpuscular HGB conc (test 33.2 g/dL 31.5-36.2 code = mean corpuscular HGB conc) red cell distribution width (test 11.2 % 11.5-15.5 L code = red cell distribution width) Platelets [#/volume] in Blood (test 261 K/uL 137-338 code = 43967-8) Platelet mean volume [Entitic 9.0 fL 8.4-11.8 volume] in Blood (test code = 07009-7) Neutrophils.band form/100 67.1 % 44.4-80.1 leukocytes in Blood (test code = 02473-3) Lymphocytes/100 leukocytes in Body 24.5 % 10.0-50.0 fluid (test code = 27162-3) Monocytes/100 leukocytes in Blood 6.1 % 3.6-12.04 by Automated count (test code = 5905-5) Eosinophils/100 leukocytes in Blood 0.4 % 0.0-5.41 by Automated count (test code = 713-8) Basophils/100 leukocytes in 1.9 % 0.0-0.79 H Unspecified specimen (test code = 75936-7) [facility], [id number] 12:57:00 NeutrophilsLymphocyteMonocytePlatelet EstimatePlatelet MorphologyMaMerit Health River OaksComprehensive metabolic 2000 panel - Serum or [id number] 12:57:00 Test Item Value Reference Range Interpretation Comments glucose (test code = glucose) 94 mg/dL 74-106 Urea nitrogen [Mass/volume] in 5 mg/dL 6-20 L Serum or Plasma (test code = 3094-0) Osmolality of Serum or Plasma 265 280-300 L (test code = 2692-2) creatinine (test code = 0.7 mg/dL 0.50-0.90 creatinine) glomerular filtration rate (test >60.00 code = glomerular filtration rate) Urea nitrogen/Creatinine [Mass 7.1 12-20 L Ratio] in Serum or Plasma (test code = 3097-3) sodium level (test code = sodium 134 mmol/L 135-145 L level) Potassium [Moles/volume] in Body 3.3 mmol/L 3.5-5.2 L fluid (test code = 2821-7) chloride level (test code = 97 mmol/L 98-108 L chloride level) CO2 (test code = CO2) 22 mmol/L 21-32 anion gap (test code = anion gap) 18.3 mEq/L 12-20 calcium level (test code = calcium 9.7 mg/dL 8.6-10.0 level) total protein (test code = total 7.6 g/dL 6.6-8.7 protein) albumin (test code = albumin) 4.1 g/dL 3.5-5.2 globulin (test code = globulin) 3.5 gm/dL A/G ratio (test code = A/G ratio) 1.2 >1.0 bilirubin,total (test code = 0.7 mg/dL 0.0-1.2 bilirubin,total) AST/SGOT (test code = AST/SGOT) 23 U/L 15-32 Alanine aminotransferase 56 U/L 0-33 H [Enzymatic activity/volume] in Serum or Plasma (test code = 1742-6) Alkaline phosphatase [Enzymatic 71 U/L 35-105 activity/volume] in Serum or Plasma (test code = 6768-6) [facility] W Auto Differential panel - [id number] 12:57:00 Test Item Value Reference Range Interpretation Comments white blood count (test code = 4.5 K/uL 4.0-11.5 white blood count) red blood count (test code = red 4.04 M/uL 3.80-5.20 blood count) Hemoglobin [Mass/volume] in Blood 12.7 g/dL 10.5-15.7 (test code = 718-7) hematocrit (test code = hematocrit) 38.3 % 34.0-50.0 Erythrocyte mean corpuscular volume 94.8 fL 78-98 [Entitic volume] (test code = 55194-2) Erythrocyte mean corpuscular 31.5 pg 26.2-33.4 hemoglobin [Entitic mass] (test code = 93502-8) mean corpuscular HGB conc (test 33.2 g/dL 31.5-36.2 code = mean corpuscular HGB conc) red cell distribution width (test 11.2 % 11.5-15.5 L code = red cell distribution width) Platelets [#/volume] in Blood (test 261 K/uL 137-338 code = 06713-0) Platelet mean volume [Entitic 9.0 fL 8.4-11.8 volume] in Blood (test code = 15105-9) Neutrophils.band form/100 67.1 % 44.4-80.1 leukocytes in Blood (test code = 49701-3) Lymphocytes/100 leukocytes in Body 24.5 % 10.0-50.0 fluid (test code = 32842-1) Monocytes/100 leukocytes in Blood 6.1 % 3.6-12.04 by Automated count (test code = 5905-5) Eosinophils/100 leukocytes in Blood 0.4 % 0.0-5.41 by Automated count (test code = 713-8) Basophils/100 leukocytes in 1.9 % 0.0-0.79 H Unspecified specimen (test code = 93661-0) [facility], [id number] 12:57:00 NeutrophilsLymphocyteMonocytePlatelet EstimatePlatelet MorphologyPatient'S Choice [facility] CountyComprehensive metabolic 2000 panel - Serum or [id number] 12:57:00 Test Item Value Reference Range Interpretation Comments glucose (test code = glucose) 94 mg/dL 74-106 Urea nitrogen [Mass/volume] in 5 mg/dL 6-20 L Serum or Plasma (test code = 3094-0) Osmolality of Serum or Plasma 265 280-300 L (test code = 2692-2) creatinine (test code = 0.7 mg/dL 0.50-0.90 creatinine) glomerular filtration rate (test >60.00 code = glomerular filtration rate) Urea nitrogen/Creatinine [Mass 7.1 12-20 L Ratio] in Serum or Plasma (test code = 3097-3) sodium level (test code = sodium 134 mmol/L 135-145 L level) Potassium [Moles/volume] in Body 3.3 mmol/L 3.5-5.2 L fluid (test code = 2821-7) chloride level (test code = 97 mmol/L 98-108 L chloride level) CO2 (test code = CO2) 22 mmol/L 21-32 anion gap (test code = anion gap) 18.3 mEq/L 12-20 calcium level (test code = calcium 9.7 mg/dL 8.6-10.0 level) total protein (test code = total 7.6 g/dL 6.6-8.7 protein) albumin (test code = albumin) 4.1 g/dL 3.5-5.2 globulin (test code = globulin) 3.5 gm/dL A/G ratio (test code = A/G ratio) 1.2 >1.0 bilirubin,total (test code = 0.7 mg/dL 0.0-1.2 bilirubin,total) AST/SGOT (test code = AST/SGOT) 23 U/L 15-32 Alanine aminotransferase 56 U/L 0-33 H [Enzymatic activity/volume] in Serum or Plasma (test code = 1742-6) Alkaline phosphatase [Enzymatic 71 U/L 35-105 activity/volume] in Serum or Plasma (test code = 6768-6) [facility] CountyUrinalysis macro (dipstick) panel - [id number] 12:22:43 Test Item Value Reference Range Interpretation Comments Leukocytes (test code = Trace Leukocytes) Nitrite (test code = Nitrite) positive Urobilinogen (test code = 8 Urobilinogen) Protein (test code = Protein) 100 pH (test code = pH) 6.0 Blood (test code = Blood) Negative Specific [place] (test code = 1.020 Specific [place]) Ketone (test code = Ketone) Large (80) Bilirubin (test code = Bilirubin) Large Glucose (test code = Glucose) Negative Appearance (test code = Clear Appearance) Color (test code = Color) Dark Yellow [facility] CountyUrinalysis macro (dipstick) panel - [id number] 12:22:43 Test Item Value Reference Range Interpretation Comments Leukocytes (test code = Trace Leukocytes) Nitrite (test code = Nitrite) positive Urobilinogen (test code = 8 Urobilinogen) Protein (test code = Protein) 100 pH (test code = pH) 6.0 Blood (test code = Blood) Negative Specific [place] (test code = 1.020 Specific [place]) Ketone (test code = Ketone) Large (80) Bilirubin (test code = Bilirubin) Large Glucose (test code = Glucose) Negative Appearance (test code = Clear Appearance) Color (test code = Color) Dark Yellow [facility] CountyUrinalysis macro (dipstick) panel - [id number] 12:22:43 Test Item Value Reference Range Interpretation Comments Leukocytes (test code = Trace Leukocytes) Nitrite (test code = Nitrite) positive Urobilinogen (test code = 8 Urobilinogen) Protein (test code = Protein) 100 pH (test code = pH) 6.0 Blood (test code = Blood) Negative Specific [place] (test code = 1.020 Specific [place]) Ketone (test code = Ketone) Large (80) Bilirubin (test code = Bilirubin) Large Glucose (test code = Glucose) Negative Appearance (test code = Clear Appearance) Color (test code = Color) Dark Yellow [facility] CountyUrinalysis macro (dipstick) panel - [id number] 12:22:43 Test Item Value Reference Range Interpretation Comments Leukocytes (test code = Trace Leukocytes) Nitrite (test code = Nitrite) positive Urobilinogen (test code = 8 Urobilinogen) Protein (test code = Protein) 100 pH (test code = pH) 6.0 Blood (test code = Blood) Negative Specific [place] (test code = 1.020 Specific [place]) Ketone (test code = Ketone) Large (80) Bilirubin (test code = Bilirubin) Large Glucose (test code = Glucose) Negative Appearance (test code = Clear Appearance) Color (test code = Color) Dark Yellow [facility] CountyUrinalysis macro (dipstick) panel - [id number] 12:22:43 Test Item Value Reference Range Interpretation Comments Leukocytes (test code = Trace Leukocytes) Nitrite (test code = Nitrite) positive Urobilinogen (test code = 8 Urobilinogen) Protein (test code = Protein) 100 pH (test code = pH) 6.0 Blood (test code = Blood) Negative Specific [place] (test code = 1.020 Specific [place]) Ketone (test code = Ketone) Large (80) Bilirubin (test code = Bilirubin) Large Glucose (test code = Glucose) Negative Appearance (test code = Clear Appearance) Color (test code = Color) Dark Yellow [facility] CountyHem[facility] and Hematocrit panel - [id number] 06:06:00 Test Item Value Reference Range Interpretation Comments Hemoglobin [Mass/volume] in Blood 13.1 g/dL 10.5-15.7 (test code = 718-7) hematocrit (test code = hematocrit) 39.2 % 34.0-50.0 [facility]Com[facility] 2000 panel - Serum or Plasma 2019-02-16 06:06:00 Test Item Value Reference Range Interpretation Comments glucose (test code = glucose) 95 mg/dL 74-106 Urea nitrogen [Mass/volume] in 5 mg/dL 6-20 L Serum or Plasma (test code = 3094-0) Osmolality of Serum or Plasma 267 280-300 L (test code = 2692-2) creatinine (test code = 0.7 mg/dL 0.50-0.90 creatinine) glomerular filtration rate (test >60.00 code = glomerular filtration rate) Urea nitrogen/Creatinine [Mass 7.1 12-20 L Ratio] in Serum or Plasma (test code = 3097-3) sodium level (test code = sodium 135 mmol/L 135-145 level) Potassium [Moles/volume] in Body 3.5 mmol/L 3.5-5.2 fluid (test code = 2821-7) chloride level (test code = 100 mmol/L 98-108 chloride level) CO2 (test code = CO2) 23 mmol/L 21-32 anion gap (test code = anion gap) 15.5 mEq/L 12-20 calcium level (test code = calcium 8.9 mg/dL 8.6-10.0 level) total protein (test code = total 6.7 g/dL 6.6-8.7 protein) albumin (test code = albumin) 3.8 g/dL 3.5-5.2 globulin (test code = globulin) 2.9 gm/dL A/G ratio (test code = A/G ratio) 1.3 >1.0 bilirubin,total (test code = 0.3 mg/dL 0.0-1.2 bilirubin,total) AST/SGOT (test code = AST/SGOT) 58 U/L 15-32 H Alanine aminotransferase 131 U/L 0-33 H [Enzymatic activity/volume] in Serum or Plasma (test code = 1742-6) Alkaline phosphatase [Enzymatic 54 U/L 35-105 activity/volume] in Serum or Plasma (test code = 6768-6) [facility] CountyH[facility] Hematocrit panel - [id number] 06:06:00 Test Item Value Reference Range Interpretation Comments Hemoglobin [Mass/volume] in Blood 13.1 g/dL 10.5-15.7 (test code = 718-7) hematocrit (test code = hematocrit) 39.2 % 34.0-50.0 [facility]Com[facility] 2000 panel - Serum or Plasma 2019-02-16 06:06:00 Test Item Value Reference Range Interpretation Comments glucose (test code = glucose) 95 mg/dL 74-106 Urea nitrogen [Mass/volume] in 5 mg/dL 6-20 L Serum or Plasma (test code = 3094-0) Osmolality of Serum or Plasma 267 280-300 L (test code = 2692-2) creatinine (test code = 0.7 mg/dL 0.50-0.90 creatinine) glomerular filtration rate (test >60.00 code = glomerular filtration rate) Urea nitrogen/Creatinine [Mass 7.1 12-20 L Ratio] in Serum or Plasma (test code = 3097-3) sodium level (test code = sodium 135 mmol/L 135-145 level) Potassium [Moles/volume] in Body 3.5 mmol/L 3.5-5.2 fluid (test code = 2821-7) chloride level (test code = 100 mmol/L 98-108 chloride level) CO2 (test code = CO2) 23 mmol/L 21-32 anion gap (test code = anion gap) 15.5 mEq/L 12-20 calcium level (test code = calcium 8.9 mg/dL 8.6-10.0 level) total protein (test code = total 6.7 g/dL 6.6-8.7 protein) albumin (test code = albumin) 3.8 g/dL 3.5-5.2 globulin (test code = globulin) 2.9 gm/dL A/G ratio (test code = A/G ratio) 1.3 >1.0 bilirubin,total (test code = 0.3 mg/dL 0.0-1.2 bilirubin,total) AST/SGOT (test code = AST/SGOT) 58 U/L 15-32 H Alanine aminotransferase 131 U/L 0-33 H [Enzymatic activity/volume] in Serum or Plasma (test code = 1742-6) Alkaline phosphatase [Enzymatic 54 U/L 35-105 activity/volume] in Serum or Plasma (test code = 6768-6) [facility]emat[facility]rit panel - [id number] 06:06:00 Test Item Value Reference Range Interpretation Comments Hemoglobin [Mass/volume] in Blood 13.1 g/dL 10.5-15.7 (test code = 718-7) hematocrit (test code = hematocrit) 39.2 % 34.0-50.0 [facility] 2000 [facility] - Serum or Plasma 2019-02-16 06:06:00 Test Item Value Reference Range Interpretation Comments glucose (test code = glucose) 95 mg/dL 74-106 Urea nitrogen [Mass/volume] in 5 mg/dL 6-20 L Serum or Plasma (test code = 3094-0) Osmolality of Serum or Plasma 267 280-300 L (test code = 2692-2) creatinine (test code = 0.7 mg/dL 0.50-0.90 creatinine) glomerular filtration rate (test >60.00 code = glomerular filtration rate) Urea nitrogen/Creatinine [Mass 7.1 12-20 L Ratio] in Serum or Plasma (test code = 3097-3) sodium level (test code = sodium 135 mmol/L 135-145 level) Potassium [Moles/volume] in Body 3.5 mmol/L 3.5-5.2 fluid (test code = 2821-7) chloride level (test code = 100 mmol/L 98-108 chloride level) CO2 (test code = CO2) 23 mmol/L 21-32 anion gap (test code = anion gap) 15.5 mEq/L 12-20 calcium level (test code = calcium 8.9 mg/dL 8.6-10.0 level) total protein (test code = total 6.7 g/dL 6.6-8.7 protein) albumin (test code = albumin) 3.8 g/dL 3.5-5.2 globulin (test code = globulin) 2.9 gm/dL A/G ratio (test code = A/G ratio) 1.3 >1.0 bilirubin,total (test code = 0.3 mg/dL 0.0-1.2 bilirubin,total) AST/SGOT (test code = AST/SGOT) 58 U/L 15-32 H Alanine aminotransferase 131 U/L 0-33 H [Enzymatic activity/volume] in Serum or Plasma (test code = 1742-6) Alkaline phosphatase [Enzymatic 54 U/L 35-105 activity/volume] in Serum or Plasma (test code = 6768-6) [facility]emat[facility] - [id number] 08:02:00 Test Item Value Reference Range Interpretation Comments Hemoglobin [Mass/volume] in Blood 11.9 g/dL 10.5-15.7 (test code = 718-7) hematocrit (test code = hematocrit) 34.5 % 34.0-50.0 [facility] 2000 [facility] - Serum or Plasma 2019-02-15 08:02:00 Test Item Value Reference Range Interpretation Comments Glucose [Mass/volume] in Serum or 153 mg/dL 74-106 H Plasma (test code = 2345-7) Urea nitrogen [Mass/volume] in 6 mg/dL 6-20 Serum or Plasma (test code = 3094-0) Osmolality of Serum or Plasma 278 280-300 L (test code = 2692-2) creatinine (test code = 0.7 mg/dL 0.50-0.90 creatinine) glomerular filtration rate (test >60.00 code = glomerular filtration rate) Urea nitrogen/Creatinine [Mass 8.6 12-20 L Ratio] in Serum or Plasma (test code = 3097-3) sodium level (test code = sodium 139 mmol/L 135-145 level) potassium level (test code = 3.5 mmol/L 3.5-5.2 potassium level) chloride level (test code = 104 mmol/L 98-108 chloride level) CO2 (test code = CO2) 23 mmol/L 21-32 anion gap (test code = anion gap) 15.5 mEq/L 12-20 calcium level (test code = calcium 8.8 mg/dL 8.6-10.0 level) total protein (test code = total 6.2 g/dL 6.6-8.7 L protein) albumin (test code = albumin) 3.4 g/dL 3.5-5.2 L globulin (test code = globulin) 2.8 gm/dL A/G ratio (test code = A/G ratio) 1.2 >1.0 bilirubin,total (test code = 0.5 mg/dL 0.0-1.2 bilirubin,total) AST/SGOT (test code = AST/SGOT) 89 U/L 15-32 Alanine aminotransferase 134 U/L 0-33 H [Enzymatic activity/volume] in Serum or Plasma (test code = 1742-6) Alkaline phosphatase [Enzymatic 48 U/L 35-105 activity/volume] in Serum or Plasma (test code = 6768-6) [facility] - [id number] 08:02:00 Test Item Value Reference Range Interpretation Comments Hemoglobin [Mass/volume] in Blood 11.9 g/dL 10.5-15.7 (test code = 718-7) hematocrit (test code = hematocrit) 34.5 % 34.0-50.0 [facility] 2000 panel - Serum or Plasma 2019-02-15 08:02:00 Test Item Value Reference Range Interpretation Comments Glucose [Mass/volume] in Serum or 153 mg/dL 74-106 H Plasma (test code = 2345-7) Urea nitrogen [Mass/volume] in 6 mg/dL 6-20 Serum or Plasma (test code = 3094-0) Osmolality of Serum or Plasma 278 280-300 L (test code = 2692-2) creatinine (test code = 0.7 mg/dL 0.50-0.90 creatinine) glomerular filtration rate (test >60.00 code = glomerular filtration rate) Urea nitrogen/Creatinine [Mass 8.6 12-20 L Ratio] in Serum or Plasma (test code = 3097-3) sodium level (test code = sodium 139 mmol/L 135-145 level) potassium level (test code = 3.5 mmol/L 3.5-5.2 potassium level) chloride level (test code = 104 mmol/L 98-108 chloride level) CO2 (test code = CO2) 23 mmol/L 21-32 anion gap (test code = anion gap) 15.5 mEq/L 12-20 calcium level (test code = calcium 8.8 mg/dL 8.6-10.0 level) total protein (test code = total 6.2 g/dL 6.6-8.7 L protein) albumin (test code = albumin) 3.4 g/dL 3.5-5.2 L globulin (test code = globulin) 2.8 gm/dL A/G ratio (test code = A/G ratio) 1.2 >1.0 bilirubin,total (test code = 0.5 mg/dL 0.0-1.2 bilirubin,total) AST/SGOT (test code = AST/SGOT) 89 U/L 15-32 Alanine aminotransferase 134 U/L 0-33 H [Enzymatic activity/volume] in Serum or Plasma (test code = 1742-6) Alkaline phosphatase [Enzymatic 48 U/L 35-105 activity/volume] in Serum or Plasma (test code = 6768-6) [facility]emat[facility] - [id number] 08:02:00 Test Item Value Reference Range Interpretation Comments Hemoglobin [Mass/volume] in Blood 11.9 g/dL 10.5-15.7 (test code = 718-7) hematocrit (test code = hematocrit) 34.5 % 34.0-50.0 [facility]Com[facility] 2000 panel - Serum or Plasma 2019-02-15 08:02:00 Test Item Value Reference Range Interpretation Comments Glucose [Mass/volume] in Serum or 153 mg/dL 74-106 H Plasma (test code = 2345-7) Urea nitrogen [Mass/volume] in 6 mg/dL 6-20 Serum or Plasma (test code = 3094-0) Osmolality of Serum or Plasma 278 280-300 L (test code = 2692-2) creatinine (test code = 0.7 mg/dL 0.50-0.90 creatinine) glomerular filtration rate (test >60.00 code = glomerular filtration rate) Urea nitrogen/Creatinine [Mass 8.6 12-20 L Ratio] in Serum or Plasma (test code = 3097-3) sodium level (test code = sodium 139 mmol/L 135-145 level) potassium level (test code = 3.5 mmol/L 3.5-5.2 potassium level) chloride level (test code = 104 mmol/L 98-108 chloride level) CO2 (test code = CO2) 23 mmol/L 21-32 anion gap (test code = anion gap) 15.5 mEq/L 12-20 calcium level (test code = calcium 8.8 mg/dL 8.6-10.0 level) total protein (test code = total 6.2 g/dL 6.6-8.7 L protein) albumin (test code = albumin) 3.4 g/dL 3.5-5.2 L globulin (test code = globulin) 2.8 gm/dL A/G ratio (test code = A/G ratio) 1.2 >1.0 bilirubin,total (test code = 0.5 mg/dL 0.0-1.2 bilirubin,total) AST/SGOT (test code = AST/SGOT) 89 U/L 15-32 Alanine aminotransferase 134 U/L 0-33 H [Enzymatic activity/volume] in Serum or Plasma (test code = 1742-6) Alkaline phosphatase [Enzymatic 48 U/L 35-105 activity/volume] in Serum or Plasma (test code = 6768-6) [facility] W Auto Differential panel - [id number] 02:57:00 Test Item Value Reference Range Interpretation Comments white blood count (test code = 5.1 K/uL 4.0-11.5 white blood count) red blood count (test code = red 4.29 M/uL 3.80-5.20 blood count) Hemoglobin [Mass/volume] in Blood 14.0 g/dL 10.5-15.7 (test code = 718-7) hematocrit (test code = hematocrit) 41.3 % 34.0-50.0 Erythrocyte mean corpuscular volume 96.3 fL 78-98 [Entitic volume] (test code = 61850-5) Erythrocyte mean corpuscular 32.6 pg 26.2-33.4 hemoglobin [Entitic mass] (test code = 12471-6) mean corpuscular HGB conc (test 33.9 g/dL 31.5-36.2 code = mean corpuscular HGB conc) red cell distribution width (test 10.3 % 11.5-15.5 L code = red cell distribution width) Platelets [#/volume] in Blood (test 216 K/uL 137-338 code = 50862-1) Platelet mean volume [Entitic 9.2 fL 8.4-11.8 volume] in Blood (test code = 81072-1) Neutrophils.band form/100 69.8 % 44.4-80.1 leukocytes in Blood (test code = 14299-7) Lymphocytes/100 leukocytes in Body 22.0 % 10.0-50.0 fluid (test code = 19057-6) Monocytes/100 leukocytes in Blood 6.1 % 3.6-12.04 by Automated count (test code = 5905-5) Eosinophils/100 leukocytes in Blood 0.3 % 0.0-5.41 by Automated count (test code = 713-8) Basophils/100 leukocytes in Blood 1.8 % 0.0-0.79 H by Automated count (test code = 706-2) [facility] Countydifferent[facility], [id number] 02:57:00 NeutrophilsBandLymphocyteAtypical LymphMonocyteEosinophilBasophilPlatelet EstimatePlatelet MorphologyPoikilocytosisTarget CellsHypersegmented PolysRouleauToxic VacuolationSmudge CellsMaMerit Health River OaksComprehensive metabolic 2000 panel - Serum or [id number] 02:57:00 Test Item Value Reference Range Interpretation Comments Glucose [Mass/volume] in Serum or 103 mg/dL 74-106 Plasma (test code = 2345-7) Urea nitrogen [Mass/volume] in 14 mg/dL 6-20 Serum or Plasma (test code = 3094-0) Osmolality of Serum or Plasma 271 280-300 L (test code = 2692-2) creatinine (test code = 0.9 mg/dL 0.50-0.90 creatinine) glomerular filtration rate (test >60.00 code = glomerular filtration rate) Urea nitrogen/Creatinine [Mass 15.6 12-20 Ratio] in Serum or Plasma (test code = 3097-3) sodium level (test code = sodium 135 mmol/L 135-145 level) potassium level (test code = 3.4 mmol/L 3.5-5.2 L potassium level) chloride level (test code = 94 mmol/L 98-108 L chloride level) CO2 (test code = CO2) 21 mmol/L 21-32 anion gap (test code = anion gap) 23.4 mEq/L 12-20 H calcium level (test code = calcium 9.6 mg/dL 8.6-10.0 level) total protein (test code = total 8.3 g/dL 6.6-8.7 protein) albumin (test code = albumin) 4.5 g/dL 3.5-5.2 globulin (test code = globulin) 3.8 gm/dL A/G ratio (test code = A/G ratio) 1.2 >1.0 bilirubin,total (test code = 0.8 mg/dL 0.0-1.2 bilirubin,total) AST/SGOT (test code = AST/SGOT) 34 U/L 15-32 H Alanine aminotransferase 56 U/L 0-33 H [Enzymatic activity/volume] in Serum or Plasma (test code = 1742-6) Alkaline phosphatase [Enzymatic 57 U/L 35-105 activity/volume] in Serum or Plasma (test code = 6768-6) [facility] W Auto Differential panel - [id number] 02:57:00 Test Item Value Reference Range Interpretation Comments white blood count (test code = 5.1 K/uL 4.0-11.5 white blood count) red blood count (test code = red 4.29 M/uL 3.80-5.20 blood count) Hemoglobin [Mass/volume] in Blood 14.0 g/dL 10.5-15.7 (test code = 718-7) hematocrit (test code = hematocrit) 41.3 % 34.0-50.0 Erythrocyte mean corpuscular volume 96.3 fL 78-98 [Entitic volume] (test code = 83920-6) Erythrocyte mean corpuscular 32.6 pg 26.2-33.4 hemoglobin [Entitic mass] (test code = 25926-4) mean corpuscular HGB conc (test 33.9 g/dL 31.5-36.2 code = mean corpuscular HGB conc) red cell distribution width (test 10.3 % 11.5-15.5 L code = red cell distribution width) Platelets [#/volume] in Blood (test 216 K/uL 137-338 code = 97086-2) Platelet mean volume [Entitic 9.2 fL 8.4-11.8 volume] in Blood (test code = 26967-5) Neutrophils.band form/100 69.8 % 44.4-80.1 leukocytes in Blood (test code = 49527-0) Lymphocytes/100 leukocytes in Body 22.0 % 10.0-50.0 fluid (test code = 50073-4) Monocytes/100 leukocytes in Blood 6.1 % 3.6-12.04 by Automated count (test code = 5905-5) Eosinophils/100 leukocytes in Blood 0.3 % 0.0-5.41 by Automated count (test code = 713-8) Basophils/100 leukocytes in Blood 1.8 % 0.0-0.79 H by Automated count (test code = 706-2) [facility], [id number] 02:57:00 NeutrophilsBandLymphocyteAtypical LymphMonocyteEosinophilBasophilPlatelet EstimatePlatelet MorphologyPoikilocytosisTarget CellsHypersegmented PolysRouleauToxic VacuolationSmudge CellsMaMerit Health River OaksComprehensive metabolic 2000 panel - Serum or [id number] 02:57:00 Test Item Value Reference Range Interpretation Comments Glucose [Mass/volume] in Serum or 103 mg/dL 74-106 Plasma (test code = 2345-7) Urea nitrogen [Mass/volume] in 14 mg/dL 6-20 Serum or Plasma (test code = 3094-0) Osmolality of Serum or Plasma 271 280-300 L (test code = 2692-2) creatinine (test code = 0.9 mg/dL 0.50-0.90 creatinine) glomerular filtration rate (test >60.00 code = glomerular filtration rate) Urea nitrogen/Creatinine [Mass 15.6 12-20 Ratio] in Serum or Plasma (test code = 3097-3) sodium level (test code = sodium 135 mmol/L 135-145 level) potassium level (test code = 3.4 mmol/L 3.5-5.2 L potassium level) chloride level (test code = 94 mmol/L 98-108 L chloride level) CO2 (test code = CO2) 21 mmol/L 21-32 anion gap (test code = anion gap) 23.4 mEq/L 12-20 H calcium level (test code = calcium 9.6 mg/dL 8.6-10.0 level) total protein (test code = total 8.3 g/dL 6.6-8.7 protein) albumin (test code = albumin) 4.5 g/dL 3.5-5.2 globulin (test code = globulin) 3.8 gm/dL A/G ratio (test code = A/G ratio) 1.2 >1.0 bilirubin,total (test code = 0.8 mg/dL 0.0-1.2 bilirubin,total) AST/SGOT (test code = AST/SGOT) 34 U/L 15-32 H Alanine aminotransferase 56 U/L 0-33 H [Enzymatic activity/volume] in Serum or Plasma (test code = 1742-6) Alkaline phosphatase [Enzymatic 57 U/L 35-105 activity/volume] in Serum or Plasma (test code = 6768-6) [facility] W Auto Differential panel - [id number] 02:57:00 Test Item Value Reference Range Interpretation Comments white blood count (test code = 5.1 K/uL 4.0-11.5 white blood count) red blood count (test code = red 4.29 M/uL 3.80-5.20 blood count) Hemoglobin [Mass/volume] in Blood 14.0 g/dL 10.5-15.7 (test code = 718-7) hematocrit (test code = hematocrit) 41.3 % 34.0-50.0 Erythrocyte mean corpuscular volume 96.3 fL 78-98 [Entitic volume] (test code = 07859-8) Erythrocyte mean corpuscular 32.6 pg 26.2-33.4 hemoglobin [Entitic mass] (test code = 96676-7) mean corpuscular HGB conc (test 33.9 g/dL 31.5-36.2 code = mean corpuscular HGB conc) red cell distribution width (test 10.3 % 11.5-15.5 L code = red cell distribution width) Platelets [#/volume] in Blood (test 216 K/uL 137-338 code = 18265-6) Platelet mean volume [Entitic 9.2 fL 8.4-11.8 volume] in Blood (test code = 54152-2) Neutrophils.band form/100 69.8 % 44.4-80.1 leukocytes in Blood (test code = 79626-2) Lymphocytes/100 leukocytes in Body 22.0 % 10.0-50.0 fluid (test code = 25437-7) Monocytes/100 leukocytes in Blood 6.1 % 3.6-12.04 by Automated count (test code = 5905-5) Eosinophils/100 leukocytes in Blood 0.3 % 0.0-5.41 by Automated count (test code = 713-8) Basophils/100 leukocytes in Blood 1.8 % 0.0-0.79 H by Automated count (test code = 706-2) [facility]different[facility], [id number] 02:57:00 NeutrophilsBandLymphocyteAtypical LymphMonocyteEosinophilBasophilPlatelet EstimatePlatelet MorphologyPoikilocytosisTarget CellsHypersegmented PolysRouleauToxic VacuolationSmudge CellsPatient'S [facility] CountyComprehensive metabolic 2000 panel - Serum or [id number] 02:57:00 Test Item Value Reference Range Interpretation Comments Glucose [Mass/volume] in Serum or 103 mg/dL 74-106 Plasma (test code = 2345-7) Urea nitrogen [Mass/volume] in 14 mg/dL 6-20 Serum or Plasma (test code = 3094-0) Osmolality of Serum or Plasma 271 280-300 L (test code = 2692-2) creatinine (test code = 0.9 mg/dL 0.50-0.90 creatinine) glomerular filtration rate (test >60.00 code = glomerular filtration rate) Urea nitrogen/Creatinine [Mass 15.6 12-20 Ratio] in Serum or Plasma (test code = 3097-3) sodium level (test code = sodium 135 mmol/L 135-145 level) potassium level (test code = 3.4 mmol/L 3.5-5.2 L potassium level) chloride level (test code = 94 mmol/L 98-108 L chloride level) CO2 (test code = CO2) 21 mmol/L 21-32 anion gap (test code = anion gap) 23.4 mEq/L 12-20 H calcium level (test code = calcium 9.6 mg/dL 8.6-10.0 level) total protein (test code = total 8.3 g/dL 6.6-8.7 protein) albumin (test code = albumin) 4.5 g/dL 3.5-5.2 globulin (test code = globulin) 3.8 gm/dL A/G ratio (test code = A/G ratio) 1.2 >1.0 bilirubin,total (test code = 0.8 mg/dL 0.0-1.2 bilirubin,total) AST/SGOT (test code = AST/SGOT) 34 U/L 15-32 H Alanine aminotransferase 56 U/L 0-33 H [Enzymatic activity/volume] in Serum or Plasma (test code = 1742-6) Alkaline phosphatase [Enzymatic 57 U/L 35-105 activity/volume] in Serum or Plasma (test code = 6768-6) [facility] W Auto Differential panel - [id number] 07:30:00 Test Item Value Reference Range Interpretation Comments white blood count (test code = 5.0 K/uL 4.0-11.5 white blood count) red blood count (test code = red 3.92 M/uL 3.80-5.20 blood count) Hemoglobin [Mass/volume] in Blood 12.9 g/dL 10.5-15.7 (test code = 718-7) hematocrit (test code = hematocrit) 38.7 % 34.0-50.0 Erythrocyte mean corpuscular volume 98.7 fL 78-98 H [Entitic volume] (test code = 78489-2) Erythrocyte mean corpuscular 33.0 pg 26.2-33.4 hemoglobin [Entitic mass] (test code = 45274-4) mean corpuscular HGB conc (test 33.4 g/dL 31.5-36.2 code = mean corpuscular HGB conc) red cell distribution width (test 11.3 % 11.5-15.5 L code = red cell distribution width) Platelets [#/volume] in Blood (test 207 K/uL 137-338 code = 99188-6) Platelet mean volume [Entitic 7.7 fL 8.4-11.8 L volume] in Blood (test code = 80089-8) Neutrophils.band form/100 54.8 % 44.4-80.1 leukocytes in Blood (test code = 52644-3) Lymphocytes/100 leukocytes in Body 35.5 % 10.0-50.0 fluid (test code = 75925-7) Monocytes/100 leukocytes in Blood 6.5 % 3.6-12.04 by Automated count (test code = 5905-5) Eosinophils/100 leukocytes in Blood 1.4 % 0.0-5.41 by Automated count (test code = 713-8) Basophils/100 leukocytes in Blood 1.7 % 0.0-0.79 H by Automated count (test code = 706-2) [facility], [id number] 07:30:00 NeutrophilsBandLymphocyteMonocytePlatelet EstimateMaMerit Health River OaksRubella virus IgG Ab [Titer] in [id number] 07:30:00 Test Item Value Reference Range Interpretation Comments Rubella virus IgG Ab 106.7 [IU]/mL [Units/volume] in Serum by Immunoassay (test code = 5334-8) [facility] CountyHIV 1+2 Ab [Presence] in [id number] 07:30:00HIV P24 AgHIV-1/2 AbPatient'S [facility] Of [facility] CountyABO & Rh group [Type] in [id number] 07:30:00 Test Item Value Reference Range Interpretation Comments Rh [Type] in Blood (test code = 4+ 17750-1) ABO and Rh group panel - Blood Ab positive (test code = 17357-2) [facility] CountyBlood group antibody screen [Presence] in Serum or Plasma 2019-01-26 07:30:00 Test Item Value Reference Range Interpretation Comments Blood group antibody screen negative [Presence] in Serum or Plasma (test code = 890-4) [facility] CountyReagin Ab [Presence] in Serum by [id number] 07:30:00 Test Item Value Reference Range Interpretation Comments Reagin Ab [Presence] in Serum by nonreactive nonreactive RPR (test code = 37918-7) [facility] CountyHepatitis B virus surface Ag [Presence] in Serum 2019-01-26 07:30:00 Test Item Value Reference Range Interpretation Comments .hepatitis B surface antigen (test negative negative code = .hepatitis B surface antigen) [facility] CountyBacteria identified in Urine by [id number] 07:30:00 Test Item Value Reference Range Interpretation Comments Bacteria identified in no growth at 48 hrs. Urine by Culture (test code = 630-4) [facility] W Auto Differential panel - [id number] 07:30:00 Test Item Value Reference Range Interpretation Comments white blood count (test code = 5.0 K/uL 4.0-11.5 white blood count) red blood count (test code = red 3.92 M/uL 3.80-5.20 blood count) Hemoglobin [Mass/volume] in Blood 12.9 g/dL 10.5-15.7 (test code = 718-7) hematocrit (test code = hematocrit) 38.7 % 34.0-50.0 Erythrocyte mean corpuscular volume 98.7 fL 78-98 H [Entitic volume] (test code = 79328-3) Erythrocyte mean corpuscular 33.0 pg 26.2-33.4 hemoglobin [Entitic mass] (test code = 77310-5) mean corpuscular HGB conc (test 33.4 g/dL 31.5-36.2 code = mean corpuscular HGB conc) red cell distribution width (test 11.3 % 11.5-15.5 L code = red cell distribution width) Platelets [#/volume] in Blood (test 207 K/uL 137-338 code = 43957-8) Platelet mean volume [Entitic 7.7 fL 8.4-11.8 L volume] in Blood (test code = 16291-9) Neutrophils.band form/100 54.8 % 44.4-80.1 leukocytes in Blood (test code = 77603-4) Lymphocytes/100 leukocytes in Body 35.5 % 10.0-50.0 fluid (test code = 18959-7) Monocytes/100 leukocytes in Blood 6.5 % 3.6-12.04 by Automated count (test code = 5905-5) Eosinophils/100 leukocytes in Blood 1.4 % 0.0-5.41 by Automated count (test code = 713-8) Basophils/100 leukocytes in Blood 1.7 % 0.0-0.79 H by Automated count (test code = 706-2) [facility], [id number] 07:30:00 NeutrophilsBandLymphocyteMonocytePlatelet EstimateMaMerit Health River OaksRubella virus IgG Ab [Titer] in [id number] 07:30:00 Test Item Value Reference Range Interpretation Comments Rubella virus IgG Ab 106.7 [IU]/mL [Units/volume] in Serum by Immunoassay (test code = 5334-8) [facility] GroupHIV [facility]+2 Ab [Presence] in [id number] 07:30:00HIV P24 AgHIV-1/2 AbMaMerit Health River OaksABO & Rh group [Type] in [id number] 07:30:00 Test Item Value Reference Range Interpretation Comments Rh [Type] in Blood (test code = 4+ 04862-9) ABO and Rh group panel - Blood Ab positive (test code = 28300-9) [facility] CountyBlood group antibody screen [Presence] in Serum or Plasma 2019-01-26 07:30:00 Test Item Value Reference Range Interpretation Comments Blood group antibody screen negative [Presence] in Serum or Plasma (test code = 890-4) [facility] CountyReagin Ab [Presence] in Serum by [id number] 07:30:00 Test Item Value Reference Range Interpretation Comments Reagin Ab [Presence] in Serum by nonreactive nonreactive RPR (test code = 13224-6) [facility] CountyHepatitis B virus surface Ag [Presence] in Serum 2019-01-26 07:30:00 Test Item Value Reference Range Interpretation Comments .hepatitis B surface antigen (test negative negative code = .hepatitis B surface antigen) [facility] CountyBacteria identified in Urine by [id number] 07:30:00 Test Item Value Reference Range Interpretation Comments Bacteria identified in no growth at 48 hrs. Urine by Culture (test code = 630-4) [facility] CountyCBC W Auto Differential panel - [id number] 07:30:00 Test Item Value Reference Range Interpretation Comments white blood count (test code = 5.0 K/uL 4.0-11.5 white blood count) red blood count (test code = red 3.92 M/uL 3.80-5.20 blood count) Hemoglobin [Mass/volume] in Blood 12.9 g/dL 10.5-15.7 (test code = 718-7) hematocrit (test code = hematocrit) 38.7 % 34.0-50.0 Erythrocyte mean corpuscular volume 98.7 fL 78-98 H [Entitic volume] (test code = 90034-3) Erythrocyte mean corpuscular 33.0 pg 26.2-33.4 hemoglobin [Entitic mass] (test code = 97691-4) mean corpuscular HGB conc (test 33.4 g/dL 31.5-36.2 code = mean corpuscular HGB conc) red cell distribution width (test 11.3 % 11.5-15.5 L code = red cell distribution width) Platelets [#/volume] in Blood (test 207 K/uL 137-338 code = 45869-7) Platelet mean volume [Entitic 7.7 fL 8.4-11.8 L volume] in Blood (test code = 36162-6) Neutrophils.band form/100 54.8 % 44.4-80.1 leukocytes in Blood (test code = 74526-6) Lymphocytes/100 leukocytes in Body 35.5 % 10.0-50.0 fluid (test code = 15856-3) Monocytes/100 leukocytes in Blood 6.5 % 3.6-12.04 by Automated count (test code = 5905-5) Eosinophils/100 leukocytes in Blood 1.4 % 0.0-5.41 by Automated count (test code = 713-8) Basophils/100 leukocytes in Blood 1.7 % 0.0-0.79 H by Automated count (test code = 706-2) [facility]different[facility], [id number] 07:30:00 NeutrophilsBandLymphocyteMonocytePlatelet EstimateMataCovington County HospitalRubella virus Ab [Titer] in [id number] 07:30:00 Test Item Value Reference Range Interpretation Comments Rubella virus IgG Ab 106.7 [IU]/mL [Units/volume] in Serum by Immunoassay (test code = 5334-8) [facility] CountyHIV 1+2 Ab [Presence] in [id number] 07:30:00HIV P24 AgHIV-1/2 AbMataRockingham Memorial Hospital GroupABO & Rh group [Type] in [id number] 07:30:00 Test Item Value Reference Range Interpretation Comments Rh [Type] in Blood (test code = 4+ 21732-3) ABO and Rh group panel - Blood Ab positive (test code = 17122-4) [facility] CountyBlood group antibody screen [Presence] in Serum or Plasma 2019-01-26 07:30:00 Test Item Value Reference Range Interpretation Comments Blood group antibody screen negative [Presence] in Serum or Plasma (test code = 890-4) [facility] CountyReagin Ab [Presence] in Serum by [id number] 07:30:00 Test Item Value Reference Range Interpretation Comments Reagin Ab [Presence] in Serum by nonreactive nonreactive RPR (test code = 14077-3) [facility] CountyHepatitis B virus surface Ag [Presence] in Serum 2019-01-26 07:30:00 Test Item Value Reference Range Interpretation Comments .hepatitis B surface antigen (test negative negative code = .hepatitis B surface antigen) [facility] CountyBacteria identified in Urine by [id number] 07:30:00 Test Item Value Reference Range Interpretation Comments Bacteria identified in no growth at 48 hrs. Urine by Culture (test code = 630-4) [facility] CountyChoriogonadotropin.beta subunit [Units/volume] in Serum or [id number] 02:05:00 Test Item Value Reference Range Interpretation Comments HCG quantitative (test code = 4590.0 mIU/mL 0-5 H HCG quantitative) [facility] CountyChoriogonadotropin.beta subunit [Units/volume] in Serum or [id number] 02:05:00 Test Item Value Reference Range Interpretation Comments HCG quantitative (test code = 4590.0 mIU/mL 0-5 H HCG quantitative) [facility] CountyChoriogonadotropin.beta subunit [Units/volume] in Serum or [id number] 02:05:00 Test Item Value Reference Range Interpretation Comments HCG quantitative (test code = 4590.0 mIU/mL 0-5 H HCG quantitative) [facility] Auto Differential panel - [id number] 11:00:00 Test Item Value Reference Range Interpretation Comments white blood count (test code = 4.9 K/uL 4.0-11.5 white blood count) red blood count (test code = red 4.02 M/uL 3.80-5.20 blood count) Hemoglobin [Mass/volume] in Blood 13.0 g/dL 10.5-15.7 (test code = 718-7) hematocrit (test code = hematocrit) 40.1 % 34.0-50.0 Erythrocyte mean corpuscular volume 99.7 fL 78-98 H [Entitic volume] (test code = 17326-7) Erythrocyte mean corpuscular 32.4 pg 26.2-33.4 hemoglobin [Entitic mass] (test code = 70577-8) mean corpuscular HGB conc (test 32.5 g/dL 31.5-36.2 code = mean corpuscular HGB conc) red cell distribution width (test 11.4 % 11.5-15.5 L code = red cell distribution width) Platelets [#/volume] in Blood (test 212 K/uL 137-338 code = 19704-7) Platelet mean volume [Entitic 8.4 fL 8.4-11.8 volume] in Blood (test code = 67396-2) Neutrophils.band form/100 53.6 % 44.4-80.1 leukocytes in Blood (test code = 23872-8) Lymphocytes/100 leukocytes in Body 37.4 % 10.0-50.0 fluid (test code = 67068-7) Monocytes/100 leukocytes in Blood 5.5 % 3.6-12.04 by Automated count (test code = 5905-5) Eosinophils/100 leukocytes in Blood 1.9 % 0.0-5.41 by Automated count (test code = 713-8) Basophils/100 leukocytes in Blood 1.6 % 0.0-0.79 H by Automated count (test code = 706-2) [facility] Countydifferential panel, [id number] 11:00:00 NeutrophilsBandLymphocyteMonocyteEosinophilBasophilPlatelet EstimatePlatelet MorphologyPolychromasiaHypochromasiaPoikilocytosisBasophilic StipplingAnisocytosisMicrocytosisMacrocytosisOvalocytesStomatocyteBurr CellsAcanthocytesPatient'S Choice [facility] Of [facility] CountyReagin Ab [Presence] in Serum by RPR 2019-01-03 11:00:00 Test Item Value Reference Range Interpretation Comments Reagin Ab [Presence] in Serum by nonreactive nonreactive RPR (test code = 93888-5) [facility] CountyComprehensive metabolic 2000 panel - Serum or Plasma 2019-01-03 11:00:00 Test Item Value Reference Range Interpretation Comments Glucose [Mass/volume] in Serum or 96 mg/dL 74-106 Plasma (test code = 2345-7) Urea nitrogen [Mass/volume] in 12 mg/dL 6-20 Serum or Plasma (test code = 3094-0) Osmolality of Serum or Plasma 277 280-300 L (test code = 2692-2) creatinine (test code = 0.9 mg/dL 0.50-0.90 creatinine) glomerular filtration rate (test >60.00 code = glomerular filtration rate) Urea nitrogen/Creatinine [Mass 13.3 12-20 Ratio] in Serum or Plasma (test code = 3097-3) sodium level (test code = sodium 139 mmol/L 135-145 level) potassium level (test code = 4.0 mmol/L 3.5-5.2 potassium level) chloride level (test code = 103 mmol/L 98-108 chloride level) CO2 (test code = CO2) 24 mmol/L 21-32 anion gap (test code = anion gap) 16.0 mEq/L 12-20 calcium level (test code = calcium 9.5 mg/dL 8.6-10.0 level) total protein (test code = total 7.8 g/dL 6.6-8.7 protein) albumin (test code = albumin) 4.4 g/dL 3.5-5.2 globulin (test code = globulin) 3.4 gm/dL A/G ratio (test code = A/G ratio) 1.3 >1.0 bilirubin,total (test code = 0.4 mg/dL 0.0-1.2 bilirubin,total) AST/SGOT (test code = AST/SGOT) 15 U/L 15-32 Alanine aminotransferase 12 U/L 0-33 [Enzymatic activity/volume] in Serum or Plasma (test code = 1742-6) Alkaline phosphatase [Enzymatic 59 U/L 35-105 activity/volume] in Serum or Plasma (test code = 6768-6) [facility] CountyHIV 1+2 Ab [Presence] in [id number] 11:00:00HIV P24 AgHIV-1/2 AbMataCovington County HospitalHepatitis B virus surface Ag [Presence] in [id number] 11:00:00 Test Item Value Reference Range Interpretation Comments .hepatitis B surface antigen (test negative negative code = .hepatitis B surface antigen) [facility]
[2022-11-11] MEDS ORDERED: FAMOTIDINE 20 MG TAB ONE (12:27)
[2022-11-11] MEDS ORDERED: predniSONE 20 MG TAB ONE (12:27)
[2022-11-11] MEDS ORDERED: DIPHENHYDRAMINE 25 MG TAB/CAP ONE (12:27)
--- NOTE | 2022-11-11 13:02 | EDPHYS ---
Physician Documentation [facility] Name: Jade Murillo Age: 32 yrs Sex: Female : 1990 Arrival Date: 11/11/2022 Time: 11:41 Bed 11 Private MD: THEE Physician William Castaneda HPI: 11/11 12:56 This 32 yrs old Black Female presents to ER via Ambulatory with complaints of Allergic mel Reaction. 12:56 The patient presents with diffuse swelling, rash, redness of skin. Onset: The mel symptoms/episode began/occurred 1 day(s) ago. Associated signs and symptoms: The patient has no apparent associated signs or symptoms. Possible causes: The patient has no known obvious cause for the symptoms, At home the patient or guardian has treated the symptoms with nothing. Severity of symptoms: At their worst the symptoms were mild moderate in the emergency department the symptoms are unchanged. The patient has not experienced similar symptoms in the past. 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 - Social history:: Smoking status: Patient denies any tobacco usage or history of. ROS: 12:57 Constitutional: Negative for fever, chills, and weight loss, Eyes: Negative for injury, mel pain, redness, and discharge, ENT: Negative for injury, pain, and discharge, Neck: Negative for injury, pain, and swelling, Cardiovascular: Negative for chest pain, palpitations, and edema, Respiratory: Negative for shortness of breath, cough, wheezing, and pleuritic chest pain, Abdomen/GI: Negative for abdominal pain, nausea, vomiting, diarrhea, and constipation, Back: Negative for injury and pain, : Negative for injury, bleeding, discharge, and swelling, MS/Extremity: Negative for injury and deformity, Neuro: Negative for headache, weakness, numbness, tingling, and seizure, Psych: Negative for depression, anxiety, suicide ideation, homicidal ideation, and hallucinations, Allergy/Immunology: Negative for hives, rash, and allergies, Endocrine: Negative for neck swelling, polydipsia, polyuria, polyphagia, and marked weight changes, Hematologic/Lymphatic: Negative for swollen nodes, abnormal bleeding, and unusual bruising. 12:57 Skin: Positive for rash. Exam: 12:57 Constitutional: This is a well developed, well nourished patient who is awake, alert, mel and in no acute distress. Head/Face: Normocephalic, atraumatic. Eyes: Pupils equal round and reactive to light, extra-ocular motions intact. Lids and lashes normal. Conjunctiva and sclera are non-icteric and not injected. Cornea within normal limits. Periorbital areas with no swelling, redness, or edema. ENT: Nares patent. No nasal discharge, no septal abnormalities noted. Tympanic membranes are normal and external auditory canals are clear. Oropharynx with no redness, swelling, or masses, exudates, or evidence of obstruction, uvula midline. Mucous membranes moist. Neck: Trachea midline, no thyromegaly or masses palpated, and no cervical lymphadenopathy. Supple, full range of motion without nuchal rigidity, or vertebral point tenderness. No Meningismus. Chest/axilla: Normal chest wall appearance and motion. Nontender with no deformity. No lesions are appreciated. Cardiovascular: Regular rate and rhythm with a normal S1 and S2. No gallops, murmurs, or rubs. Normal PMI, no JVD. No pulse deficits. Respiratory: Lungs have equal breath sounds bilaterally, clear to auscultation and percussion. No rales, rhonchi or wheezes noted. No increased work of breathing, no retractions or nasal flaring. Abdomen/GI: Soft, non-tender, with normal bowel sounds. No distension or tympany. No guarding or rebound. No evidence of tenderness throughout. Back: No spinal tenderness. No costovertebral tenderness. Full range of motion. MS/ Extremity: Pulses equal, no cyanosis. Neurovascular intact. Full, normal range of motion. Neuro: Awake and alert, GCS 15, oriented to person, place, time, and situation. Cranial nerves II-XII grossly intact. Motor strength 5/5 in all extremities. Sensory grossly intact. Cerebellar exam normal. Normal gait. Psych: Awake, alert, with orientation to person, place and time. Behavior, mood, and affect are within normal limits. 12:57 Skin: Appearance: Color: normal in color, Temperature: warm, Moisture: normal moisture, petechiae, not noted, ecchymosis, not noted, flushing, not noted, diaphoresis is not appreciated, swelling, is not appreciated, drug rash. Vital Signs: 12:03 BP 121 / 76; Pulse 76; Resp 20 S; Temp 98.2(TE); Pulse Ox 100% on R/A; Weight 73.03 kg aa5 (R); Height 5 ft. 4 in. (162.56 cm) (R); 12:03 Body Mass Index 27.64 (73.03 kg, 162.56 cm) aa5 MDM: 11:44 Patient medically screened. mel 12:59 Differential diagnosis: anaphylaxis, angioedema, Arrhythmias bronchospasm, Hereditary eml Angioedema Mastocystosis Status Asthmaticus urticaria. Data reviewed: vital signs, nurses notes. Data interpreted: quality assurance monitor chassis: not applicable for this patient encounter. rate is 76 beats/min, rhythm is regular, Pulse oximetry: on room air is 100 %. Counseling: I had a detailed discussion with the patient and/or guardian regarding: the historical points, exam findings, and any diagnostic results supporting the discharge/admit diagnosis, the need for outpatient follow up, for definitive care, a family practitioner. Administered Medications: 12:20 CANCELLED (Physician Discretion): NS 0.9% 1000 ml IV at 1 bolus Per protocol; 1000 mL aa5 bolus 12:20 CANCELLED (Physician Discretion): SOLU-Medrol (methylPrednisoLONE) 125 mg IVP once aa5 12:21 CANCELLED (Physician Discretion): Benadryl (diphenhydrAMINE) 50 mg IVP once aa5 12:21 CANCELLED (Physician Discretion): Pepcid (famotidine) 40 mg IVP once; dilute with 10 mL aa5 0.9% NaCl; give over 2 minutes 12:28 Drug: predniSONE 60 mg Route: PO; aa5 13:04 Follow up: Response: No adverse reaction aa5 12:28 Drug: Pepcid (famotidine) 40 mg Route: PO; aa5 13:05 Follow up: Response: No adverse reaction aa5 12:28 Drug: Benadryl (diphenhydrAMINE) 50 mg Route: PO; aa5 13:05 Follow up: Response: No adverse reaction aa5 Disposition Summary: 11/11/22 13:01 Discharge Ordered [facility] Problem: new [facility] Symptoms: have improved [facility] Condition: Stable mel Diagnosis - Allergic urticaria [facility] - Allergy, unspecified mel [facility]up: [facility] - With: Private Physician - When: 2 - 3 days - Reason: Recheck today's complaints, Continuance of care, Re-evaluation by your physician Discharge Instructions: - Discharge Summary Sheet [facility] - Allergies, Adult [facility] - How to Use an Auto-Injector Pen [facility] - Hives mel - Rash, Adult mel - Angioedema mel - Rash, Adult, [id number]-hv-[id number] mel - Angioedema, [id number]-[id number] mel - Hives, [id number]-uh-[id number] [facility] Forms: - Medication Reconciliation Form [facility] - Thank You Letter [facility] - Antibiotic Education [facility] - Prescription Opioid Use [facility] - Work release form [facility] Prescriptions: - Benadryl 25 mg Oral Capsule - take 2 capsule by ORAL route every 6 hours As needed; 50 tablet; Refills: 0, [facility] Product Selection Permitted - Pepcid 20 mg Oral Tablet - take 1 tablet by ORAL route every 12 hours for 21 days; 42 tablet; Refills: 0, [facility] Product Selection Permitted - Prednisone 20 mg Oral Tablet - take 2 tablets by ORAL route once daily for 5 days; 10 tablet; Refills: 0, [facility] Product Selection Permitted - EpiPen 0.3 mg/0.3 mL Injection auto-injector - inject 0.3 milliliter by INTRAMUSCULAR route as directed as needed for [facility] anaphylaxis; 1 packet; Refills: 0, Product Selection Permitted Signatures: William Castaneda MD MD cha Calderon, Audri RN RN aa5 Corrections: (The following items were deleted from the chart) 12:20 11:45 NS 0.9% 1000 ml IV at 1 bolus Per protocol; 1000 mL bolus ordered. [facility] aa5 12:20 11:45 SOLU-Medrol (methylPrednisoLONE) 125 mg IVP once ordered. [facility] aa5 12:21 11:45 Benadryl (diphenhydrAMINE) 50 mg IVP once ordered. [facility] aa5 12:21 11:45 Pepcid (famotidine) 40 mg IVP once; dilute with 10 mL 0.9% NaCl; give over 2 aa5 minutes ordered. [facility]
--- NOTE | 2022-11-11 13:02 | ER ---
Nurse's Notes [facility] Name: Jade Murillo Age: 32 yrs Sex: Female : 1990 Arrival Date: 11/11/2022 Time: 11:41 Bed 11 Private MD: Diagnosis: Allergic urticaria;Allergy, unspecified Presentation: 11/11 12:03 Onset of symptoms was November 2022. aa5 12:03 Acuity: KEVYN 5 aa5 12:03 Chief complaint: Patient states: "I started with my hands itching and now it's my feet aa5 and legs". 12:03 Coronavirus screen: At this time, the client does not indicate any symptoms associated aa5 with coronavirus-19. Ebola Screen: Patient denies travel to an Ebola-affected area in the 21 days before illness onset. Initial Sepsis Screen: Does the patient meet any 2 criteria? No. Patient's initial sepsis screen is negative. Does the patient have a suspected source of infection? No. Patient's initial sepsis screen is negative. Risk Assessment: Do you want to hurt yourself or someone else? Patient reports no desire to harm self or others. 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 - Social history:: Smoking status: Patient denies any tobacco usage or history of. Screenin:05 [facility] ED Fall Risk Assessment (Adult) History of falling in the last 3 months, aa5 including since admission No falls in past 3 months (0 pts) Confusion or Disorientation No (0 pts) Intoxicated or Sedated No (0 pts) Impaired Gait No (0 pts) Mobility Assist Device Used No (0 pt) Altered Elimination No (0 pt) Score/Fall Risk Level 0 - 2 = Low Risk. Abuse screen: Denies threats or abuse. Nutritional screening: No deficits noted. Tuberculosis screening: No symptoms or risk factors identified. Assessment: 12:05 General: Appears uncomfortable, Behavior is calm, cooperative. Pain: Denies pain. aa5 Neuro: Level of Consciousness is awake, alert, obeys commands, Oriented to person, place, time, situation. Cardiovascular: Heart tones S1 S2 present Rhythm is regular. Respiratory: Airway is patent Respiratory effort is even, unlabored, Respiratory pattern is regular, symmetrical. GI: No signs and/or symptoms were reported involving the gastrointestinal system. : No signs and/or symptoms were reported regarding the genitourinary system. EENT: No signs and/or symptoms were reported regarding the EENT system. Derm: Skin is dry, Skin is normal, Skin temperature is warm Rash noted that is itchy, red, raised, on right hand and left hand, axel legs. Musculoskeletal: Range of motion: intact in all extremities. 13:05 Neuro: Level of Consciousness is awake, alert, obeys commands, Oriented to person, aa5 place, time, situation. Respiratory: Airway is patent Respiratory effort is even, unlabored, Respiratory pattern is regular, symmetrical. Derm: Skin is dry, Skin is normal, Skin temperature is warm. 13:05 Reassessment: Patient states feeling better. aa5 Vital Signs: 12:03 BP 121 / 76; Pulse 76; Resp 20 S; Temp 98.2(TE); Pulse Ox 100% on R/A; Weight 73.03 kg aa5 (R); Height 5 ft. 4 in. (162.56 cm) (R); 12:03 Body Mass Index 27.64 (73.03 kg, 162.56 cm) aa5 ED Course: 11:41 Patient arrived in ED. rg4 11:44 William Castaneda MD is Attending Physician. mel 12:03 Triage completed. aa5 12:03 Arm band placed on. aa5 12:03 Patient has correct armband on for positive identification. aa5 12:08 Tammie Garnett, YONG is Primary Nurse. aa5 13:05 No provider procedures requiring assistance completed. Patient did not have IV access aa5 during this emergency room visit. Administered Medications: 12:20 CANCELLED (Physician Discretion): NS 0.9% 1000 ml IV at 1 bolus Per protocol; 1000 mL aa5 bolus 12:20 CANCELLED (Physician Discretion): SOLU-Medrol (methylPrednisoLONE) 125 mg IVP once aa5 12:21 CANCELLED (Physician Discretion): Benadryl (diphenhydrAMINE) 50 mg IVP once aa5 12:21 CANCELLED (Physician Discretion): Pepcid (famotidine) 40 mg IVP once; dilute with 10 mL aa5 0.9% NaCl; give over 2 minutes 12:28 Drug: predniSONE 60 mg Route: PO; aa5 13:04 Follow up: Response: No adverse reaction aa5 12:28 Drug: Pepcid (famotidine) 40 mg Route: PO; aa5 13:05 Follow up: Response: No adverse reaction aa5 12:28 Drug: Benadryl (diphenhydrAMINE) 50 mg Route: PO; aa5 13:05 Follow up: Response: No adverse reaction aa5 Medication: 13:05 VIS not applicable for this client. aa5 Outcome: 13:01 Discharge ordered by . mel 13:05 Discharged to home ambulatory. aa5 13:05 Condition: stable 13:05 Discharge instructions given to patient, Instructed on discharge instructions, follow up and referral plans. medication usage, Demonstrated understanding of instructions, follow-up care, medications, Prescriptions given X 4. 13:11 Patient left the ED. [facility] Signatures: William Castaneda MD MD cha Calderon, Audri, RN RN aa5 Keara Forde rg4 Corrections: (The following items were deleted from the chart) 13:53 12:05 Derm: Skin is pink, warm \\T\\ dry. Rash noted that is itchy, red, raised, on right aa5 hand and left hand, axel legs aa5
[2022-11-11 13:21] VITALS: BP 121/76; TEMP 98.2; O2SAT 100
== END 2022-11-11 13:11 | disposition home or self-care (01) ==
LOC: ER 11:38
DX: L50.0 Allergic urticaria (principal)
CPT/HCPCS: 99283; J7512

== ENCOUNTER 2023-06-10 13:53 | Emergency (ER) | payer SELFPAY ==
--- OUTSIDE RECORDS SUMMARY | 2023-06-10 14:02 | XMS REPORT | Continuity of Care Document ---
:1990 Author Organization [facility] t Address [address] [place] [address] Care Team Providers Name Role Phone Clarice Smith NP Primary Care Physician CLARICE SMITH Attending Clinician Unavailable CLARICE SMITH Attending Clinician Unavailable 2, [facility] Lab Attending Clinician Unavailable Romy Attending Clinician Unavailable PRASHANTH Attending Clinician Unavailable Romy Admitting Clinician Unavailable PRASHANTH Admitting Clinician Unavailable Payers Payer Name Policy Type Policy Number Effective Date Expiration Date Haley esqueda [facility] [id number] 2022 CHOICE [place] STAR 00:00:00 [facility] [id number] 2022 2023 CHOICE (MEDICAID 00:00:00 00:00:00 [place]PLAC[place] - [place] [id number] [facility]'S [facility] [place] [id number] 2019 HEALTHY [place] 00:00:00 WOMEN RELIANCE STANDARD [id number] - [facility] LIMITED PLAN - MULTIPLAN Problems Condition Condition Condition Status Onset Resolution Last Treating Co mments Source Name Details Category Date Date Treatment Clinician Date Intramural Intramural Problem Active [facility] leiomyoma Leiomyoma 5-17 da of uterus of Uterus 00:00: Medi pam 00 Group Gonorrhea Gonorrhea Problem Active 2019-11 [facility] 0-13 da 00:00: Medical 00 Group Transderma Transderma Problem Active 2019-0 [facility] l l 9-28 da contracept Contracept 00:00: Me dical kari kari 00 Group Gynecologi Gynecologi Problem Active 2020-0 [facility] c c 9-28 da examinatio Examinatio 00:00: Me dical n n 00 Group Venereal Venereal Problem Active 2019-0 [place] disease Disease 9-28 da screening Screening 00:00: Medi pam 00 Group Intermenst Intermenst Problem Active 2020-0 [facility] rual rual 6-16 da bleeding - Bleeding - 00:00: Me dical irregular Irregular 00 Grou p Initiation Initiation Problem Active 2020-0 [facility] of of 6-16 da transderma Transderma 00:00: Me dical l l 00 Group contracept Contracept ion done ion Done Problem Active 2019-1 [facility] care Care 1-12 da 00:00: Medical 00 Group Initiation Initiation Problem Active 2019 [place] 1-12 da contracept Contracept 00:00: Me dical ion done ion Done 00 Group Contracept Contracept Problem Active 2018-11 [facility] ion ion 1-12 da education Education 00:00: Medi pam 00 Group Small for Small for Problem Active [facility] gestationa Gestationa 8-28 da l age l Age 00:00: Medical fetus Fetus 00 Group Unintentio Unintentio Problem Active [facility] nal weight nal Weight 5-07 da loss Loss 00:00: Medical 00 Group Severe Severe Problem Active [facility] hyperemesi Hyperemesi 4-09 da s s 00:00: Medical gravidarum Gravidarum 00 Gr oup No known No known Disease Unive rs active active ity of problems problems [facility] [place] [facility] Allergies, Adverse Reactions, Alerts Allergy Allergy Status Severity Reaction(s) Onset Inactive Treating Comm ents Source Name Type Date Date Clinician No Known DA Active U [facility] Allergie 9-25 [facility] 00:[facility]: [facility] [place] NO KNOWN Drug Active Univers ALLERGIE Class ity of S [facility] Social History Social Habit Start Date Stop Date Quantity Comments Source Exposure to 2022-11-10 2022-11-20 Not sure [facility] SARS-CoV-2 (event) 00:00:00 13:38:00 Medica l Branch Sex Assigned At [birth year] [facility] 00:00:00 00:00:00 Medical Branch Smoking Status Start Date Stop Date Source Tobacco smoking consumption [facility] Medical unknown Branch Never Smoker [facility] Medications Ordered Filled Start Stop Current Ordering Indication Dosage Frequency Signature Comments Components Source Medication Medication Date Date Medication? Clinician (SIG) Name Name EPINEPHrine Yes INJECT 0.3 Univers 0.15 mg/0.3 1-05 ML(S) ity of mL 00:00: INTRAMUSCU [place] injection 00 LARLY Medica l NEEDED FOR Branch ANAPHYLAXI S. EPINEPHrine Yes INJECT 0.3 Univers 0.15 mg/0.3 1-05 ML(S) ity of mL 00:00: INTRAMUSCU [place] injection 00 LARLY Medica l NEEDED FOR Branch ANAPHYLAXI S. EPINEPHrine Yes INJECT 0.3 Univers 0.15 mg/0.3 1-05 ML(S) ity of mL 00:00: INTRAMUSCU [place] injection 00 LARLY Medica l NEEDED FOR Branch ANAPHYLAXI S. medroxyprog medroxyprog No medroxypro [place] esterone 10 [...] Name Observation Time Observation Value Comments Source Systolic blood 2022-11-20 19:55:00 128 mm[facility]Hg[facility] Diastolic blood 2022-11-20 19:55:00 76 mm[Hg] [facility] Heart rate 2022-11-20 19:55:00 82 /min [facility] Body temperature 2022-11-20 19:55:00 36.67 [facility] Respiratory rate 2022-11-20 19:55:00 18 /min [facility] Body height 2022-11-20 19:55:00 162.6 cm [facility] Body weight 2022-11-20 19:55:00 72.576 kg [facility] BMI 2022-11-20 19:55:00 27.46 kg/m2 [facility] Oxygen saturation in 2022-11-20 19:55:00 100 /min [facility] Arterial blood by [facility] Pulse oximetry Branch BP Diastolic 2022-06-22 00:00:00 82 mm[Hg] [facility] Height 2022-06-22 00:00:00 64 [in_i] [facility] BMI (Body Mass 2022-06-22 00:00:00 26 kg/m2 [facility] Medical Index) Group BP Systolic 2022-06-22 00:00:00 131 mm[Hg] [facility] Body Weight 2022-06-22 00:00:00 151.4 [lb_av] [facility] BP Diastolic 2022-05-08 00:00:00 92 mm[Hg] [facility] Height 2022-05-08 00:00:00 64 [in_i] [facility] BMI (Body Mass 2022-05-08 00:00:00 25.9 kg/m2 [facility] Medical Index) Group BP Systolic 2022-05-08 00:00:00 142 mm[Hg] [facility] Body Weight 2022-05-08 00:00:00 151 [lb_av] [facility] Height 2022-03-18 00:00:00 64 [in_i] [facility] BP Diastolic 2021-12-18 00:00:00 88 mm[Hg] [facility] Height 2021-12-18 00:00:00 64 [in_i] [facility] BMI (Body Mass 2021-12-18 00:00:00 25.5 kg/m2 [facility] Medical Index) Group BP Systolic 2021-12-18 00:00:00 138 mm[Hg] [facility] Body Weight 2021-12-18 00:00:00 148.4 [lb_av] [facility] Height 2021-09-17 00:00:00 64 [in_i] [facility] BMI (Body Mass 2021-09-17 00:00:00 23.2 kg/m2 [facility] Medical Index) Group Body Weight 2021-09-17 00:00:00 135 [lb_av] [facility] BP Diastolic 2021-09-02 00:00:00 75 mm[Hg] [facility] Height 2021-09-02 00:00:00 64 [in_i] [facility] BMI (Body Mass 2021-09-02 00:00:00 23 kg/m2 [facility] Medical Index) Group BP Systolic 2021-09-02 00:00:00 119 mm[Hg] [facility] Body Weight 2021-09-02 00:00:00 134.2 [lb_av] [facility] BP Diastolic 2021-08-19 00:00:00 87 mm[Hg] [facility] Height 2021-08-19 00:00:00 64 [in_i] [facility] BMI (Body Mass 2021-08-19 00:00:00 22.6 kg/m2 [facility] Medical Index) Group BP Systolic 2021-08-19 00:00:00 124 mm[Hg] [facility] Body Weight 2021-08-19 00:00:00 131.9 [lb_av] [facility] BP Diastolic 2021-04-11 00:00:00 81 mm[Hg] [facility] Height 2021-04-11 00:00:00 64 [in_i] [facility] BMI (Body Mass 2021-04-11 00:00:00 21.1 kg/m2 [facility] Medical Index) Group BP Systolic 2021-04-11 00:00:00 144 mm[Hg] [facility] Body Weight 2021-04-11 00:00:00 122.9 [lb_av] [facility] Height 2021-03-24 00:00:00 64 [in_i] [facility] BMI (Body Mass 2021-03-24 00:00:00 20.9 kg/m2 [facility] Medical Index) Group BP Systolic 2021-03-24 00:00:00 127 mm[Hg] [facility] Body Weight 2021-03-24 00:00:00 122 [lb_av] [facility] BP Diastolic 2021-03-24 00:00:00 83 mm[Hg] [facility] BP Diastolic 2020-09-24 00:00:00 83 mm[Hg] [facility] Height 2020-09-24 00:00:00 64 [in_i] [facility] BMI (Body Mass 2020-09-24 00:00:00 22.7 kg/m2 [facility] Medical Index) Group BP Systolic 2020-09-24 00:00:00 120 mm[Hg] [facility] Body Weight 2020-09-24 00:00:00 132.4 [lb_av] [facility] BP Diastolic 2020-08-20 00:00:00 70 mm[Hg] [facility] Height 2020-08-20 00:00:00 64 [in_i] [facility] BMI (Body Mass 2020-08-20 00:00:00 22.6 kg/m2 [facility] 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 element 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 Medical Index) Group BP Systolic 2020-08-20 00:00:00 131 mm[Hg] [facility] Body Weight 2020-08-20 00:00:00 131.5 [lb_av] [facility] BP Diastolic 2020-08-05 00:00:00 80 mm[Hg] [facility] Height 2020-08-05 00:00:00 64 [in_i] [facility] BMI (Body Mass 2020-08-05 00:00:00 22.3 kg/m2 [facility] hand deicer element winder Medical Index) Group BP Systolic 2020-08-05 00:00:00 130 mm[Hg] [facility] Body Weight 2020-08-05 00:00:00 130 [lb_av] [facility] BP Diastolic 2020-04-23 00:00:00 82 mm[Hg] [facility] Height 2020-04-23 00:00:00 64 [in_i] [facility] BMI (Body Mass 2020-04-23 00:00:00 23 kg/m2 [facility] hand deicer element winder Medical Index) Group BP Systolic 2020-04-23 00:00:00 128 mm[Hg] [facility] Body Weight 2020-04-23 00:00:00 134 [lb_av] [facility] BP Diastolic 2020-01-02 00:00:00 73 mm[Hg] [facility] Height 2020-01-02 00:00:00 64 [in_i] [facility] BMI (Body Mass 2020-01-02 00:00:00 21.8 kg/m2 [facility] hand deicer element winder Medical Index) Group BP Systolic 2020-01-02 00:00:00 114 mm[Hg] [facility] Body Weight 2020-01-02 00:00:00 127.1 [lb_av] [facility] BP Diastolic 2019-09-19 00:00:00 78 mm[Hg] [facility] Height 2019-09-19 00:00:00 64 [in_i] [facility] BMI (Body Mass 2019-09-19 00:00:00 21.8 kg/m2 [facility] Medical Index) Group BP Systolic 2019-09-19 00:00:00 122 mm[Hg] [facility] Body Weight 2019-09-19 00:00:00 127.2 [lb_av] [facility] BP Diastolic 2019-08-02 00:00:00 77 mm[Hg] [facility] Height 2019-08-02 00:00:00 64 [in_i] [facility] BMI (Body Mass 2019-08-02 00:00:00 22 kg/m2 [facility] Medical Index) Group BP Systolic 2019-08-02 00:00:00 116 mm[Hg] [facility] Body Weight 2019-08-02 00:00:00 128 [lb_av] [facility] BP Diastolic 2019-07-19 00:00:00 76 mm[Hg] [facility] Height 2019-07-19 00:00:00 64 [in_i] [facility] BMI (Body Mass 2019-07-19 00:00:00 21.8 kg/m2 [facility] Medical Index) Group BP Systolic 2019-07-19 00:00:00 117 mm[Hg] [facility] Body Weight 2019-07-19 00:00:00 127 [lb_av] [facility] BP Diastolic 2019-07-05 00:00:00 63 mm[Hg] [facility] Height 2019-07-05 00:00:00 64 [in_i] [facility] BMI (Body Mass 2019-07-05 00:00:00 21.9 [facility] BP Systolic 2019-07-05 00:00:00 103 mm[Hg] [facility] Body Weight 2019-07-05 00:00:00 127.5 [lb_av] [facility] BP Diastolic 2019-06-05 00:00:00 76 mm[Hg] [facility] Height 2019-06-05 00:00:00 64 [in_i] [facility] BMI (Body Mass 2019-06-05 00:00:00 20.9 kg/m2 [facility] Medical Index) Group BP Systolic 2019-06-05 00:00:00 106 mm[Hg] [facility] Body Weight 2019-06-05 00:00:00 122 [lb_av] [facility] BP Diastolic 2019-05-08 00:00:00 69 mm[Hg] [facility] Height 2019-05-08 00:00:00 64 [in_i] [facility] BMI (Body Mass 2019-05-08 00:00:00 20.5 kg/m2 [facility] Medical Index) Group BP Systolic 2019-05-08 00:00:00 107 mm[Hg] [facility] Body Weight 2019-05-08 00:00:00 119.4 [lb_av] [facility] BP Diastolic 2019-04-10 00:00:00 81 mm[Hg] [facility] Height 2019-04-10 00:00:00 64 [in_i] [facility] BMI (Body Mass 2019-04-10 00:00:00 19.3 kg/m2 [facility] Medical Index) Group BP Systolic 2019-04-10 00:00:00 119 mm[Hg] [facility] Body Weight 2019-04-10 00:00:00 112.5 [lb_av] [facility] BP Diastolic 2019-04-04 00:00:00 85 mm[Hg] [facility] Height 2019-04-04 00:00:00 64 [in_i] [facility] BMI (Body Mass 2019-04-04 00:00:00 19.4 kg/m2 [facility] Medical Index) Group BP Systolic 2019-04-04 00:00:00 132 mm[Hg] [facility] Body Weight 2019-04-04 00:00:00 113 [lb_av] [facility] BP Diastolic 2019-03-14 00:00:00 87 mm[Hg] [facility] Height 2019-03-14 00:00:00 64 [in_i] [facility] BMI (Body Mass 2019-03-14 00:00:00 19.1 kg/m2 [facility] Medical Index) Group BP Systolic 2019-03-14 00:00:00 124 mm[Hg] [facility] Body Weight 2019-03-14 00:00:00 111 [lb_av] [facility] BP Diastolic 2019-02-14 00:00:00 97 mm[Hg] [facility] Height 2019-02-14 00:00:00 64 [in_i] [facility] BMI (Body Mass 2019-02-14 00:00:00 20.6 kg/m2 [facility] Medical Index) Group BP Systolic 2019-02-14 00:00:00 135 mm[Hg] [facility] Body Weight 2019-02-14 00:00:00 120 [lb_av] [facility] BP Diastolic 2019-02-07 00:00:00 83 mm[Hg] [facility] Height 2019-02-07 00:00:00 64 [in_i] [facility] BMI (Body Mass 2019-02-07 00:00:00 22 kg/m2 [facility] Medical Index) Group BP Systolic 2019-02-07 00:00:00 124 mm[Hg] [facility] Body Weight 2019-02-07 00:00:00 128.4 [lb_av] [facility] BP Diastolic 2019-01-26 00:00:00 84 mm[Hg] [facility] Height 2019-01-26 00:00:00 64 [in_i] [facility] BMI (Body Mass 2019-01-26 00:00:00 22.4 kg/m2 [facility] Medical Index) Group BP Systolic 2019-01-26 00:00:00 128 mm[Hg] [facility] Body Weight 2019-01-26 00:00:00 130.4 [lb_av] [facility] BP Diastolic 2019-01-03 00:00:00 76 mm[Hg] [facility] Height 2019-01-03 00:00:00 64 [in_i] [facility] BMI (Body Mass 2019-01-03 00:00:00 22.4 [facility]2 [facility] BP Systolic 2019-01-03 00:00:00 118 mm[Hg] [facility] Body Weight 2019-01-03 00:00:00 130.3 [lb_av] [facility] Procedures Procedure Date / Time Performing Source Performed Clinician FREE T4 2022-11-20 [facility] 20:48:00 [facility] THYROID STIMULATING HORMONE 2022-11-20 [facility] 20:48:00 [facility] COMP. METABOLIC PANEL (18292) 2022-11-20 [facility] 20:48:00 [facility] LIPID PANEL ([id number])(TOTAL 2022-11-20 [facility] CHOLESTEROL, TRIGLYCERIDES, 20:48:00 [facility] HDL) CBC WITH DIFF 2022-11-20 [facility] 20:48:00 [facility] GLYCOSYLATED HEMOGLOBIN (A1C) 2022-11-20 [facility] 20:48:00 [facility] FREE T3 2022-11-20 [facility] 20:48:00 [facility] US, transvaginal 2021-03-24 [facility] 00:00:00 Group US, obstetric, limited 2019-08-02 [facility] 00:00:00 Group US(FBP)W/0 NON STRESS TEST 2019-08-02 [facility] 00:00:00 Group ULTRASOUND REPEAT 2019-07-05 [facility] 00:00:00 Group US, obstetric, limited 2019-04-10 [facility] 00:00:00 Group ULTRASOUND, UTERUS 2019-04-10 [facility] REAL TIME WITH IMAGE DOC, 00:00:00 Group AND MATERNAL EVAL PLUS DETAILED ANATOMIC EXAMINATION, TRANSABDOMINAL APPROACH; SINGLE OR FIRST GESTATION US, obstetric, limited 2019-03-14 [facility] 00:00:00 Group ULTRASOUND, UTERUS 2019-02-14 [facility] REAL TIME WITH IMAGE 00:00:00 Group DOCUMENTAITON, TRANSVAGINAL ULTRASOUND, UTERUS 2019-01-26 [facility] REAL TIME WITH IMAGE 00:00:00 Group DOCUMENTAITON, TRANSVAGINAL XR, hysterosalpingogram 2019-01-03 [facility] 00:00:00 Group Cholecystectomy 2018-11-08 [facility] 00:00:00 Group Dilation and Curettage 2014-09-08 [facility] 00:00:00 Group Plan of Care Planned Activity Planned Date Details Comments Source Diagnostic Test 2022-06-22 test, [facility] Pending 00:00:00 urine [code = Group test, urine] Encounters Start End Encounter Admission Attending Care Care Encounter Source Date/Time Date/Time Type Type Clinicians Facility Department ID 2023-11-23 2023-11-23 Outpatient R CLARICE SMITH [facility] [id number] [facility] 09:30:00 09:30:00 [facility] 2022-11-20 2022-11-20 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, 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 [facility] [id number] [facility] 15:30:00 15:45:00 Visit Clarice Smith [id number] [id number] PROFESS[place] [id number] [place] [address] 2022-11-20 2022-11-20 Outpatient R CLARICE SMITH [facility] [id number] [facility] 14:00:00 14:34:54 [facility] 2022-11-20 2022-11-20 Office Norberto [facility] [id number] [facility] 14:00:00 14:34:54 Visit Clarice CASE [id number] [id number] [id number] [place] dical NAL 044 [facility] 2022-10-23 2022-10-23 Outpatient Rut[facility]_L [facility]G [facility] [id number] [place] 00:00:00 00:00:00 0530 [facility] 2022-10-23 2022-10-23 Outpatient [facility]_L [facility]G [facility] [id number] [place] 00:00:00 00:00:00 0608 [facility] 2022-10-01 2022-10-01 Outpatient [facility]_L MMG MMG 2716 [...] 00:00:00 0816 [facility] 2022-06-22 2022-06-22 Tory Rutledge_[place] MM[place] - [id number] 022 [place] 00:00:00 00:00:00 Adan Eagle 0815 mark Fernández [facility] azalia MD: [address] [facility] [place] [address], [place] [address] , Ph. [phone] 2022-06-16 2022-06-16 Outpatient [facility]_L MMG MMG 2716 [place] 00:00:00 00:00:00 0809 [facility] 2022-05-08 2022-05-08 Arun Rutledge_L MMG [place] - [id number] 022 [place] 00:00:00 00:00:00 Discovery Lyric 0701 mark MD: [address] [place] [phone] , Ph. [phone] 2022-03-18 2022-03-18 Arun Wilsonledge_L MMG [place] - [id number] 022 [place] 00:00:00 00:00:00 Discovery Lyric 0511 mark MD: [address] [place] [address] , Ph. [phone] 2021-12-23 2021-12-23 Outpatient Rut[facility]_L MMG MMG 2716 [place] 09:19:00 09:19:00 0215 [facility] 2021-12-18 2021-12-18 [place] - [id number] [place] 00:00:00 00:00:00 Discovery Martha [address] [facility]-: [address] [address] , Ph. [phone] 2021-12-17 2021-12-17 Outpatient [facility]_L MMG MMG [id number] [place] 04:22:00 04:22:00 0209 [facility] 2021-10-10 2021-10-10 Outpatient DICLEMENTE_ MEHOP [facility] 750 [place] 05:04:00 05:04:00 TEETEE flores [facility] 2021-09-17 2021-09-17 Patricia Wilsonledge_L MMG [place] - [id number] 021 [place] 00:00:00 00:00:00 Discovery Martha [address] [facility]-: [address] [address] , Ph. [phone] 2021-09-02 2021-09-02 Patricia Wilsonledge_L MMG [place] - [id number] 021 [place] 00:00:00 00:00:00 Discovery Martha 1026 [facility]: [address] [address] , Ph. [phone] 2021-08-27 2021-08-27 Outpatient Rut[facility]_L MMG MMG [id number] [place] 11:50:00 11:50:00 1020 [facility] 2021-08-19 2021-08-19 Patricia Rut[place] MMG [place] - [id number] 021 [place] 00:00:00 00:00:00 Discovery Martha 1012 da [facility]: [address] [address] , Ph. [phone] 2021-04-22 2021-04-22 Outpatient Rut[facility]_L MMG MMG [id number] [place] 01:40:00 01:40:00 0615 [facility] 2021-04-11 2021-04-11 Arun Wilsonledge_L MMG [place] - [id number] 021 [place] 00:00:00 00:00:00 Discovery Lyric 0604 mark MD: [address] [place] [phone] , Ph. [phone] 2021-03-24 2021-03-24 Arun Wilsonledge_[place] MM[place] - [id number] 021 [place] 00:00:00 00:00:00 Discovery Lyric 0517 mark MD: [address] [place] [address] , Ph. [phone] 2020-12-02 2020-12-02 Outpatient Rutledge_L MMG MMG [id number] [place] 12:46:00 12:46:00 0125 [facility] 2020-11-27 2020-11-27 Outpatient Rut[facility]_L MMG MMG 2716 [place] 03:56:00 03:56:00 0120 [facility] 2020-11-25 2020-11-25 Outpatient [facility]_L MMG MMG 2716 [place] 02:38:00 02:38:00 0118 Medical Group 2020-09-25 2020-09-25 Outpatient [facility]_L MMG MMG 2716 [place] 02:21:00 02:21:00 1118 [facility] 2020-09-24 2020-09-24 Tory Rut[place] - [id number] 020 [place] 00:00:00 00:00:00 Adan Eagle 1117 Elizabeth Davis Medicshila vieyra MD: [address] [place] [address] , Ph. [phone] 2020-09-14 2020-09-14 Outpatient [facility]_L MMG MMG 2716 [place] 12:28:00 12:28:00 1107 [facility] 2020-08-20 2020-08-20 Yary Wilson[facility]_L MMG [place] - 2716 [place] 00:00:00 00:00:00 Discovery Yves 1013 da WHNP: [facility] Medical Medica [address] [address] , Ph. [phone] 2020-08-05 2020-08-05 Yary Wilsonledge_L MMG [place] - 2716 [place] 00:00:00 00:00:00 Discovery Yves 0928 da WHNP: [address] [place] [address] , Ph. [phone] 2020-05-04 2020-05-04 Outpatient Rut[facility]_L MMG MMG 2716 [place] 11:32:00 11:32:00 0627 [facility] 2020-04-23 2020-04-23 Yary Wilsonledge_L MMG [place] - 2716 [place] 00:00:00 00:00:00 Discovery Yves 0616 da WHNP: [facility] Medical Medica [address] [address] , Ph. [phone] 2020-02-12 2020-02-12 Outpatient [facility]_L MMG MM 2716 [place] 05:07:00 05:07:00 0406 [facility] 2020-01-15 2020-01-15 Outpatient [facility]_L MMG MMG 2716 [place] 10:29:00 10:29:00 0309 [facility] 2020-01-05 2020-01-05 Outpatient [facility]_L MMG MMG 2716 [place] 09:41:00 09:41:00 0228 [facility] 2020-01-04 2020-01-04 Outpatient [facility]_L MMG MM 2716 [place] 06:57:00 06:57:00 0227 Medical Group 2020-01-02 2020-01-02 Tory Rut[place] - [id number] 020 [place] 00:00:00 00:00:00 Adan Eagle 0225 Elizabeth Davis Medicshila vieyra MD: [address] [address] , Ph. [phone] 2019-12-19 2019-12-19 Outpatient [facility]_L MMG MM 2716 [place] 03:47:00 03:47:00 0211 Medical Group 2019-12-11 2019-12-11 Outpatient DICLEMENTE_ MEHOP MEHOP 750 [place] 11:19:00 11:19:00 TEETEE 0203 mark [facility] 2019-09-19 2019-09-19 Yary Ramirez [facility] [place] - [id number] 019 [place] 00:00:00 00:00:00 Discovery Yves 1112 mark URBANO: [facility] [address] [address] , Ph. [phone] 2019-08-02 2019-08-02 Tory [facility] [place] - [address] [place] 00:00:00 00:00:00 Adan Eagle 0925 Elizabeth Davis MD: [address] [address] , Ph. [phone] 2019-07-19 2019-07-[facility]:00 00:00:00 Adan Eagle 0911 Elizabeth Davis MD: [address] [place] [address] [address], [place] [address] , Ph. [phone] 2019-07-05 2019[facility]07-[facility] 00:00:00 Adan Eagle 0828 Elizabeth Davis MD: [address] [place] [address] [address], [place] [address] , Ph. [phone] 2019-06-05 2019-06-05 Tory [facility] [place] 00:00:00 00:00:00 Adan Eagle 0729 Elizabeth Davis MD: [address] [place] [address], [place] [address] , Ph. [phone] 2019-05-08 2019-05-08 [facility] [place] 00:00:00 00:00:00 Adan Eagle 0701 Elizabeth Davis MD: [address] [place] [address] [address], [place] [address] , Ph. [phone] 2019-04-10 2019-04-10 [facility] [place] 00:00:00 00:00:00 Adan Eagle 0603 Elizabeth Davis MD: [address] [place] [address] [address], [place] [address] , Ph. [phone] 2019-04-04 2019-04-04 Bernardo [facility] [place] 00:00:00 00:00:00 Teetee Richardson MD: Elizabeth vieyra [address] [place] [address], General [address], surgery [place] [id number] , Ph. [phone] 2019-03-14 2019-03-14 [facility] [address] [place] 00:00:00 00:00:00 Adan Eagle 0507 Elizabeth Davis MD: [address] [place] [address] , Ph. [phone] 2019-02-14 2019-02-14 [facility] [address] [place] 00:00:00 00:00:00 Adan Eagle 0409 Elizabeth Davis MD: [address] [place] [address] , Ph. [phone] 2019-02-07 2019-02-07 [facility] [address] [place] 00:00:00 00:00:00 Adan Eagle 0402 Elizabeth Davis MD: [address] [place] [address] , Ph. [phone] 2019-01-26 2019-01-26 [facility] [address] [place] 00:00:00 00:00:00 Adan Eagle 0321 Elizabeth Davis MD: [address] [place] [address] , Ph. [phone] 2019-01-03 2019-01-03 [facility] [address] [place] 00:00:00 00:00:00 Adan Eagle 0226 Elizabeth Davis MD: [address] [place] [address] , Ph. [phone] Results Test Description Test Time Test Comments Results Result Comments Source test, urine 2022-06-22 16:10:50 Test Item Value Reference Range Interpretation Comme nts Test (test code = Test) negative [facility]Identifier[facility] in Vaginal fluid by Wet [id number] 10:17:41 Test Item Value Reference Range Interpretation Comments Clue Cells (test code = Clue Cells) negative WBCs (test code = WBCs) negative Trichomonads (test code = negative Trichomonads) Epithelial cells (test code = normal Epithelial cells) RBCs (test code = RBCs) positive [facility], [id number] 18:02:09 Test Item Value Reference Range Interpretation Comments Test (test code = negative Test) [facility], [id number] 11:50:35 Test Item Value Reference Range Interpretation Comments Test (test code = negative Test) [facility], [id number] 15:40:27 Test Item Value Reference Range Interpretation Comments Test (test code = negative Test) [facility], [id number] 14:38:52 Test Item Value Reference Range Interpretation Comments Test (test code = negative Test) [facility], [id number] 14:38:52 Test Item Value Reference Range Interpretation Comments Test (test code = negative Test) [facility], [id number] 14:38:52 Test Item Value Reference Range Interpretation Comments Test (test code = negative Test) [facility] TV, DNA, urine/[id number] 00:00:00 Test Item Value Reference Range Interpretation [...] (reflex to antibiotic resistance by molecular analysis)) [facility] + TV, DNA, urine/[id number] 00:00:00 Test Item Value Reference Range Interpretation [...] (reflex to antibiotic resistance by molecular analysis)) [facility] + NG + TV, DNA, urine/[id number] 00:00:00 Test Item Value Reference Range Interpretation [...] (reflex to antibiotic resistance by molecular analysis)) [facility], + [id number] 00:00:00 Test Item Value Reference Range Interpretation Comments HPV type-detect 4.0 by real time not detected PCR high risk subtypes only (test code = HPV type-detect 4.0 by real time PCR high risk subtypes only) liquid Pap test (test code = normal liquid Pap test) [facility], LB + [id number] 00:00:00 Test Item Value Reference Range Interpretation Comments HPV type-detect 4.0 by real time not detected PCR high risk subtypes only (test code = HPV type-detect 4.0 by real time PCR high risk subtypes only) liquid Pap test (test code = normal liquid Pap test) [facility], LB + [id number] 00:00:00 Test Item Value Reference Range Interpretation Comments HPV type-detect 4.0 by real time not detected PCR high risk subtypes only (test code = HPV type-detect 4.0 by real time PCR high risk subtypes only) liquid Pap test (test code = normal liquid Pap test) [facility] W Auto Differential panel - [id number] 12:15:00 Test Item Value Reference Range Interpretation Comments white blood count (test code = 5.0 K/uL 4.0-11.5 white blood count) red blood count (test code = red 4.15 M/uL 3.80-5.20 blood count) hemoglobin (test code = 12.9 g/dL 10.5-15.7 hemoglobin) hematocrit (test code = 40.9 % 34.0-50.0 hematocrit) MCV [Entitic volume] (test code = 98.6 fL 86-100 30316-1) mean corpuscular hemoglobin (test 31.1 pg 26.2-33.4 [...] 44.4-80.1 leukocytes in Blood (test code = 89934-0) Immature granulocytes [#/volume] 0.0 K/uL 0.0-0.03 in Blood (test code = 36718-1) lymphocyte% (test code = 44.6 % 10.0-50.0 lymphocyte%) mono % (test code = mono %) 6.3 % 3.6-12.0 eos % (test code = eos %) 1.6 % 0.0-5.4 Basophils/100 leukocytes in 1.0 % 0.1-1.2 Unspecified specimen (test code = 66393-3) Band form neutrophils [#/volume] 2.34 K/uL 1.56-6.13 in Blood (test code = 31759-1) Lymphocytes [#/volume] in 2.3 K/uL 1.18-3.74 Unspecified specimen by Automated count (test code = 16599-6) mono # (test code = mono #) 0.32 K/uL 0.24-0.86 eos # (test code = eos #) 0.08 K/uL 0.04-0.36 basophil # (test code = basophil 0.05 K/uL 0.01-0.08 #) NRBC% (test code = NRBC%) 0 /100 WBC 0-0.2 NRBC# (test code = NRBC#) 0 K/uL [facility]Com[facility] 2000 panel - Serum or Plasma [...] Serum or Plasma (test code = 6768-6) [facility] W Auto Differential panel - [id number] 12:15:00 Test Item Value Reference Range Interpretation Comments white blood count (test code = 5.0 K/uL 4.0-11.5 white blood count) red blood count (test code = red 4.15 M/uL 3.80-5.20 blood count) hemoglobin (test code = 12.9 g/dL 10.5-15.7 hemoglobin) hematocrit (test code = 40.9 % 34.0-50.0 hematocrit) MCV [Entitic volume] (test code = 98.6 fL 86-100 43261-4) mean corpuscular hemoglobin (test 31.1 pg 26.2-33.4 [...] 44.4-80.1 leukocytes in Blood (test code = 70666-5) Immature granulocytes [#/volume] 0.0 K/uL 0.0-0.03 in Blood (test code = 54624-9) lymphocyte% (test code = 44.6 % 10.0-50.0 lymphocyte%) mono % (test code = mono %) 6.3 % 3.6-12.0 eos % (test code = eos %) 1.6 % 0.0-5.4 Basophils/100 leukocytes in 1.0 % 0.1-1.2 Unspecified specimen (test code = 44834-4) Band form neutrophils [#/volume] 2.34 K/uL 1.56-6.13 in Blood (test code = 57041-3) Lymphocytes [#/volume] in 2.3 K/uL 1.18-3.74 Unspecified specimen by Automated count (test code = 97471-4) mono # (test code = mono #) 0.32 K/uL 0.24-0.86 eos # (test code = eos #) 0.08 K/uL 0.04-0.36 basophil # (test code = basophil 0.05 K/uL 0.01-0.08 #) NRBC% (test code = NRBC%) 0 /100 WBC 0-0.2 NRBC# (test code = NRBC#) 0 K/uL [facility] 2000 [facility] - Serum or Plasma [...] Serum or Plasma (test code = 6768-6) [facility] W Auto Differential panel - [id number] 12:15:00 Test Item Value Reference Range Interpretation Comments white blood count (test code = 5.0 K/uL 4.0-11.5 white blood count) red blood count (test code = red 4.15 M/uL 3.80-5.20 blood count) hemoglobin (test code = 12.9 g/dL 10.5-15.7 hemoglobin) hematocrit (test code = 40.9 % 34.0-50.0 hematocrit) MCV [Entitic volume] (test code = 98.6 fL 86-100 09326-6) mean corpuscular hemoglobin (test 31.1 pg 26.2-33.4 [...] 44.4-80.1 leukocytes in Blood (test code = 36000-5) Immature granulocytes [#/volume] 0.0 K/uL 0.0-0.03 in Blood (test code = 24783-4) lymphocyte% (test code = 44.6 % 10.0-50.0 lymphocyte%) mono % (test code = mono %) 6.3 % 3.6-12.0 eos % (test code = eos %) 1.6 % 0.0-5.4 Basophils/100 leukocytes in 1.0 % 0.1-1.2 Unspecified specimen (test code = 60109-3) Band form neutrophils [#/volume] 2.34 K/uL 1.56-6.13 in Blood (test code = 17495-0) Lymphocytes [#/volume] in 2.3 K/uL 1.18-3.74 Unspecified specimen by Automated count (test code = 98271-5) mono # (test code = mono #) 0.32 K/uL 0.24-0.86 eos # (test code = eos #) 0.08 K/uL 0.04-0.36 basophil # (test code = basophil 0.05 K/uL 0.01-0.08 #) NRBC% (test code = NRBC%) 0 /100 WBC 0-0.2 NRBC# (test code = NRBC#) 0 K/uL [facility]Com[facility] 2000 [facility] - Serum or Plasma [...] Serum or Plasma (test code = 6768-6) [facility] HospitalReagin Ab [Presence] in Serum by [id number] 00:00:00 Test Item Value Reference Range Interpretation Comments Reagin Ab [Presence] in Serum by nonreactive nonreactive RPR (test code = 22219-6) [facility] HospitalDifferential panel, method unspecified - [id number] 00:00:00NeutrophilsBandLymphocyteAtypical LymphMonocyteEosinophilBasophilMetamyelocyteMyelocytePromyelocyteBlastsNucleated Red Blood CellAbs Neutrophil Count (Man)Abs Lymph Count (Man)Abs Monocyte Count (Man)Abs Eosinophil Count (Man)Abs Basophil Count (Man)Platelet EstimatePlatelet MorphologyPolychromasiaMacrocytosisHypersegmented Polys [facility] HospitalThyrotropin [Units/volume] in Serum or [id number] 00:00:00 Test Item Value Reference Range Interpretation Comments Thyrotropin [Units/volume] in 0.95 uIU/mL 0.36-3.74 Serum or Plasma (test code = 3016-3) [facility] HospitalThyroxine (T4) free [Mass/volume] in Serum or Plasma 2021-08-19 00:00:00 Test Item Value Reference Range Interpretation Comments free T4 (test code = free T4) 0.96 NG/dL 0.93-1.7 [facility] HospitalHIV 1+2 Ab [Presence] in [id number] 00:00:00HIV P24 AgHIV-1/2 AbMaMer[facility] MadisonHepatitis B virus surface Ag [Presence] in [id number] 00:00:00 Test Item Value Reference Range Interpretation Comments .hepatitis B surface antigen (test negative negative code = .hepatitis B surface antigen) [facility] HospitalReagin Ab [Presence] in Serum by [id number] 00:00:00 Test Item Value Reference Range Interpretation Comments Reagin Ab [Presence] in Serum by nonreactive nonreactive RPR (test code = 59805-4) [facility]Differential panel, method unspecified - [id number] 00:00:00NeutrophilsBandLymphocyteAtypical LymphMonocyteEosinophilBasophilMetamyelocyteMyelocytePromyelocyteBlastsNucleated Red Blood CellAbs Neutrophil Count (Man)Abs Lymph Count (Man)Abs Monocyte Count (Man)Abs Eosinophil Count (Man)Abs Basophil Count (Man)Platelet EstimatePlatelet MorphologyPolychromasiaMacrocytosisHypersegmented Polys [facility] HospitalThyrotropin [Units/volume] in Serum or [id number] 00:00:00 Test Item Value Reference Range Interpretation Comments Thyrotropin [Units/volume] in 0.95 uIU/mL 0.36-3.74 Serum or Plasma (test code = 3016-3) [facility] HospitalThyroxine (T4) free [Mass/volume] in Serum or Plasma 2021-08-19 00:00:00 Test Item Value Reference Range Interpretation Comments free T4 (test code = free T4) 0.96 NG/dL 0.93-1.7 [facility]HIV 1+2 Ab [Presence] in [id number] 00:00:00HIV P24 AgHIV-1/2 AbMaMerit Health MadisonHepatitis B virus surface Ag [Presence] in [id number] 00:00:00 Test Item Value Reference Range Interpretation Comments .hepatitis B surface antigen (test negative negative code = .hepatitis B surface antigen) [facility] HospitalReagin Ab [Presence] in Serum by [id number] 00:00:00 Test Item Value Reference Range Interpretation Comments Reagin Ab [Presence] in Serum by nonreactive nonreactive RPR (test code = 53984-2) [facility] HospitalDifferential panel, method unspecified - [id number] 00:00:00NeutrophilsBandLymphocyteAtypical LymphMonocyteEosinophilBasophilMetamyelocyteMyelocytePromyelocyteBlastsNucleated Red Blood CellAbs Neutrophil Count (Man)Abs Lymph Count (Man)Abs Monocyte Count (Man)Abs Eosinophil Count (Man)Abs Basophil Count (Man)Platelet EstimatePlatelet MorphologyPolychromasiaMacrocytosisHypersegmented Polys [facility] HospitalThyrotropin [Units/volume] in Serum or [id number] 00:00:00 Test Item Value Reference Range Interpretation Comments Thyrotropin [Units/volume] in 0.95 uIU/mL 0.36-3.74 Serum or Plasma (test code = 3016-3) [facility] HospitalThyroxine (T4) free [Mass/volume] in Serum or Plasma 2021-08-19 00:00:00 Test Item Value Reference Range Interpretation Comments free T4 (test code = free T4) 0.96 NG/dL 0.93-1.7 [facility]HIV 1+2 Ab [Presence] in [id number] 00:00:00HIV P24 AgHIV-1/2 AbMaMer[facility] Health MadisonHepatitis B virus surface Ag [Presence] in [id number] 00:00:00 Test Item Value Reference Range Interpretation Comments .hepatitis B surface antigen (test negative negative code = .hepatitis B surface antigen) [facility] HospitalUrinalysis macro (dipstick) panel - [id number] 16:06:55 Test Item Value Reference Range Interpretation Comments Leukocytes (test code = Negative Leukocytes) Nitrite (test code = negative Nitrite) Urobilinogen (test code = .2 Urobilinogen) Protein (test code = Negative Protein) pH (test code = pH) 7.0 Blood (test code = Blood) Non-Hemolyzed: Trace Specific Hugo (test 1.020 code = Specific Hugo) Ketone (test code = Negative Ketone) Bilirubin (test code = Negative Bilirubin) Glucose (test code = Negative Glucose) Appearance (test code = Clear Appearance) Color (test code = Color) Yellow [facility]regnancy test, [id number] 16:22:27 Test Item Value Reference Range Interpretation Comments Test (test code = negative Test) [facility], [id number] 16:22:27 Test Item Value Reference Range Interpretation Comments Test (test code = negative Test) [facility] HospitalUrinalysis macro (dipstick) panel - [id number] 16:22:10 Test Item Value Reference Range Interpretation Comments Leukocytes (test code = Leukocytes) Negative Nitrite (test code = Nitrite) negative Urobilinogen (test code = .2 Urobilinogen) Protein (test code = Protein) Negative pH (test code = pH) 7.0 Blood (test code = Blood) Negative Specific Hugo (test code = 1.025 Specific Hugo) Ketone (test code = Ketone) Negative Bilirubin (test code = Bilirubin) Negative Glucose (test code = Glucose) Negative Appearance (test code = Appearance) Clear Color (test code = Color) Yellow [facility] HospitalUrinalysis macro (dipstick) panel - [id number] 16:22:10 Test Item Value Reference Range Interpretation Comments Leukocytes (test code = Leukocytes) Negative Nitrite (test code = Nitrite) negative Urobilinogen (test code = .2 Urobilinogen) Protein (test code = Protein) Negative pH (test code = pH) 7.0 Blood (test code = Blood) Negative Specific Hugo (test code = 1.025 Specific Hugo) Ketone (test code = Ketone) Negative Bilirubin (test code = Bilirubin) Negative Glucose (test code = Glucose) Negative Appearance (test code = Appearance) Clear Color (test code = Color) Yellow [facility] HospitalReagin Ab [Presence] in Serum by [id number] 06:56:00 Test Item Value Reference Range Interpretation Comments Reagin Ab [Presence] in Serum by nonreactive nonreactive RPR (test code = 31426-6) [facility] HospitalHIV 1+2 Ab [Presence] in [id number] 06:56:00HIV P24 AgHIV-1/2 AbMataTurning Point Mature Adult Care UnitHepatitis B virus surface Ag [Presence] in [id number] 06:56:00 Test Item Value Reference Range Interpretation Comments .hepatitis B surface antigen (test negative negative code = .hepatitis B surface antigen) [facility] HospitalHenew horizons medical centertis C virus RNA [Units/volume] (viral load) in Serum or Plasma by Probe with signal [id number] 06:56:00 Test Item Value Reference Range Interpretation Comments hepatitis C RNA CHICO,qual (test code negative negative = hepatitis C RNA CHICO,qual) [facility]pregnancy test, [id number] 11:12:00 Test Item Value Reference Range Interpretation Comments Test (test code = negative Test) [facility] THIRD [id number] 17:41:00 RUN DATE: 08/31/19 [facility] PAGE 1 RUN TIME: 914 Specimen Inquiry RUN USER: INTERFACE --PATIENT: JADE MURILLO LOC: AundreaPPUW U #: [id number] AGE/SX: 29/F ROOM: 2023 RE08/02/19[facility] DR:Isaiah Chase MD : 89 BED: A DIS: 08/30/19 STATUS: DIS IN TLOC: SPEC #: [id number] RECD: 08/26/19 STATUS: SANDY DOBBINS #: [id number] ILENE: 08/26/19- [facility] DR: Isaiah Chase MD ENTERED: 08/28/19 SPTYPE: PLACIII [facility] DR: ORDERED: LEVEL V SURGICA CODES: [id number] - PLACENTA, NOS PROCEDURES: LEVEL V PIPPA GICA (Incomplete) TISSUES: PLACENTA, NOS - PLACENTA CLINICAL HISTORY 28 year old, 35.5 weeks, [id number], section, abnormal cord doppler, severe IUGR, prematurity, non-reassuring monitoring, increased SD ratios (kr) FINAL DIAGNOSIS Placenta, 35.5 weeks gestational age, section: - third trimester placenta, 300 gms (10th percentile) - meconium macrophages within membranes- patchy villous edema - marginally inserted trivascular umbilical cord and membranes free of inflammation CPT code(s): 00688 [facility] 08/30/19 GROSS DESCRIPTION The specimen was [...] unremarkable blood vasculature Membranes rupture site: 3 cm to margin Membrane color: Pantoja Other membrane findings: Thickened The trimmed placental weight: 300 gm Disk measurement: 15.0 x 13.5 x 3.0 cm in greatest dimension CONTINUED ON NEXT PAGE ---- --------RUN DATE: 08/31/19 [facility] PAGE 2 RUN TIME: 914 Specimen Inquiry RUN USER: INTERFACE SP EC #: [id number]: JADE MURILLO #[id number] (Continued) GROSS DESCRIPTION (Continued) Accessory lobes: None Maternalsurface: Lobulated and intact Parenchyma: Red, beefy, and spongy with peripheral fibrosis Parenchymalesions: None Cassettes: A1 through A4 hernan 08/28/19 @ 1207 Signed Gina Hurtado MD 08/30/19 1741 END OF REPORT CBC W/AUTO [id number] 08:08:00 Test Item Value Reference Range Interpretation [...] REQUIRED (test code = PLTMR) CBC W/AUTO [id number] 05:33:00 Test Item Value Reference Range Interpretation [...] NORMAL NORMAL code = PLTMR) CBC W/AUTO [id number] 05:29:00 Test Item Value Reference Range Interpretation [...] (test NORMAL NORMAL code = PLTMR) URINALYSIS [id number] 22:37:00 Test Item Value Reference Range Interpretation [...] = MUCU) RARE NONE SEEN CBC W/AUTO [id number] 18:07:00 Test Item Value Reference Range Interpretation [...] NORMAL code = PLTMR) AG HEPATITIS B [id number] 00:46:00 Test Item Value Reference Range Interpretation Comments AG HEPATITIS B SURFACE (test code NONREACTIVE NONREACTIVE = HBSAG) IS CONSENT FORM SIGNED FOR HIV TESTING? YAB HEPATITIS C [id number] 00:46:00 Test Item Value Reference Range Interpretation Comments AB HEPATITIS C (test code = NONREACTIVE NONREACTIVE HCVAB) SIGNAL TO CUTOFF (test code = 0.12 <0.80 N CUTOFF) IS CONSENT FORM SIGNED FOR HIV TESTING? YRUBELLA [id number] 00:46:00 Test Item Value Reference Range Interpretation Comments RUBELLA SCREEN 78.5 IUnit/ml Results >10. 0IUnits/ml (test code = are considered positive RUBSC) inaccordance wi th the CLSI guidelines and based on the [employer] S tandard for Anti-Rubell a serum as anindicator of immune status and a br eakpoint to detect mostseropositiv e persons. IS CONSENT FORM SIGNED FOR HIV TESTING? YAB [id number] 00:46:00 Test Item Value Reference Range Interpretation Comments AB TREPONEMA (test code = TREPAB) NONREACTIVE NONREACTIVE IS CONSENT FORM SIGNED FOR HIV TESTING? YAB HIV 1 00:46:00 Test Item Value Reference Range Interpretation Comments AB HIV 1 2 (test NONREACTIVE NONREACTIVE Done by [employer] code = [id number]) 4th Gen HIV Ag/Ab Combo Screen IS CONSENT FORM SIGNED FOR HIV TESTING? YAG HEPATITIS B [id number] 00:10:00 Test Item Value Reference Range Interpretation Comments AG HEPATITIS B SURFACE (test code NONREACTIVE NONREACTIVE = HBSAG) IS CONSENT FORM SIGNED FOR HIV TESTING? YAB HEPATITIS C [id number] 00:10:00 Test Item Value Reference Range Interpretation Comments AB HEPATITIS C (test code = HCVAB) NONREACTIVE SIGNAL TO CUTOFF (test code = CUTOFF) <0.80 IS CONSENT FORM SIGNED FOR HIV TESTING? YRUBELLA [id number] 00:10:00 Test Item Value Reference Range Interpretation Comments RUBELLA SCREEN 78.5 IUnit/ml Results >10. 0IUnits/ml (test code = are considered positive RUBSC) inaccordance wi th the CLSI guidelines and based on the [employer] S tandard for Anti-Rubell a serum as anindicator of immune status and a br eakpoint to detect mostseropositiv e persons. IS CONSENT FORM SIGNED FOR HIV TESTING? YAB [id number] 00:10:00 Test Item Value Reference Range Interpretation Comments AB TREPONEMA (test code = TREPAB) NONREACTIVE NONREACTIVE IS CONSENT FORM SIGNED FOR HIV TESTING? YAB HIV 1 00:10:00 Test Item Value Reference Range Interpretation Comments AB HIV 1 2 (test code = [id number]) NONREACTIVE IS CONSENT FORM SIGNED FOR HIV TESTING? YCBC W/AUTO [id number] 23:05:00 Test Item Value Reference Range Interpretation [...] NORMAL code = PLTMR) Biophysical profile panel [id number] 09:13:00 Test Item Value Reference Range Interpretation Comments Amniotic Fluid Index (test code = 2 Amniotic Fluid Index) Tone (test code = Tone) 2 Breathing (test code = 2 Breathing) Movement (test code = 2 Movement) [facility] Biophysical profile panel [id number] 09:13:00 Test Item Value Reference Range Interpretation Comments Amniotic Fluid Index (test code = 2 Amniotic Fluid Index) Tone (test code = Tone) 2 Breathing (test code = 2 Breathing) Movement (test code = 2 Movement) [facility] Bi[facility] [id number] 09:13:00 Test Item Value Reference Range Interpretation Comments Amniotic Fluid Index (test code = 2 Amniotic Fluid Index) Tone (test code = Tone) 2 Breathing (test code = 2 Breathing) Movement (test code = 2 Movement) [facility]Urinalysis macro (dipstick) panel - [id number] 09:21:00 Test Item Value Reference Range Interpretation Comments Leukocytes (test code = Trace Leukocytes) Nitrite (test code = Nitrite) negative Urobilinogen (test code = .2 Urobilinogen) Protein (test code = Protein) Negative pH (test code = pH) 7.0 Blood (test code = Blood) Negative Specific Hugo (test code = 1.020 Specific Hugo) Ketone (test code = Ketone) Negative Bilirubin (test code = Bilirubin) Negative Glucose (test code = Glucose) Negative Appearance (test code = Clear Appearance) Color (test code = Color) Dark Yellow [facility] HospitalUrinalysis macro (dipstick) panel - [id number] 11:07:00 Test Item Value Reference Range Interpretation Comments Leukocytes (test code = Leukocytes) Negative Nitrite (test code = Nitrite) negative Urobilinogen (test code = 1 Urobilinogen) Protein (test code = Protein) Negative pH (test code = pH) 7.0 Blood (test code = Blood) Negative Specific Hugo (test code = 1.020 Specific Hugo) Ketone (test code = Ketone) Negative Bilirubin (test code = Bilirubin) Negative Glucose (test code = Glucose) Negative Appearance (test code = Appearance) Clear Color (test code = Color) Yellow [facility] HospitalCandida sp DNA [Presence] in Vaginal fluid by Probe and target amplification [id number] 00:00:00 Test Item Value Reference Range Interpretation [...] = luis m glabrata by real-time PCR) [facility] HospitalCandida sp DNA [Presence] in Vaginal fluid by Probe and target amplification [id number] 00:00:00 Test Item Value Reference Range Interpretation [...] = luis m glabrata by real-time PCR) [facility] HospitalCandida sp DNA [Presence] in Vaginal fluid by Probe and target amplification [id number] 00:00:00 Test Item Value Reference Range Interpretation [...] = luis m glabrata by real-time PCR) [facility] [facility] [#/volume] in [id number] 00:00:00 Test Item Value Reference Range Interpretation [...] code = pseudomonas aeruginosa by real-time PCR) [facility] [id number] 00:00:00 Test Item Value Reference Range Interpretation [...] & av panel) by real time PCR) [facility] [#/volume] in [id number] 00:00:00 Test Item Value Reference Range Interpretation [...] code = pseudomonas aeruginosa by real-time PCR) [facility], [id number] 00:00:00 Test Item Value Reference Range Interpretation [...] & av panel) by real time PCR) [facility] in [id number] 00:00:00 Test Item Value Reference Range Interpretation [...] code = pseudomonas aeruginosa by real-time PCR) [facility], [id number] 00:00:00 Test Item Value Reference Range Interpretation [...] & av panel) by real time PCR) [facility] [id number] 09:45:00Results [facility] [id number] 09:45:00Results [facility] [id number] 09:45:00Results [facility] Differential panel - [id number] 04:12:00 Test Item Value Reference Range Interpretation [...] fL 78-98 [Entitic volume] (test code = 02588-6) Erythrocyte mean corpuscular 31.3 pg 26.2-33.4 hemoglobin [Entitic mass] (test code = 37012-0) mean corpuscular HGB conc (test 33.0 g/dL 31.5-36.2 code = mean corpuscular HGB conc) red cell distribution width (test 11.3 % 11.5-15.5 L code = red cell distribution width) Platelets [#/volume] in Blood (test 221 K/uL 137-338 code = 32315-7) Platelet mean volume [Entitic 8.5 fL 8.4-11.8 volume] in Blood (test code = 95042-2) Neutrophils.band form/100 95.1 % 44.4-80.1 leukocytes in Blood (test code = 17280-6) Lymphocytes/100 leukocytes in Body 4.0 % 10.0-50.0 L fluid (test code = 32074-3) Monocytes/100 leukocytes in Blood 0.6 % 3.6-12.04 L by Automated count (test code = 5905-5) Eosinophils/100 leukocytes in Blood 0.1 % 0.0-5.41 by Automated count (test code = 713-8) Basophils/100 leukocytes in 0.2 % 0.0-0.79 Unspecified specimen (test code = 59004-5) [facility], [id number] 04:12:00 NeutrophilsBandLymphocyteAtypical LymphMonocyteEosinophilBasophilPlatelet EstimatePlatelet MorphologyTarget CellsToxic GranulationToxic Vacuolation [facility]CB [facility] Differential panel - [id number] 04:12:00 Test Item Value Reference Range Interpretation [...] fL 78-98 [Entitic volume] (test code = 38904-4) Erythrocyte mean corpuscular 31.3 pg 26.2-33.4 hemoglobin [Entitic mass] (test code = 64688-7) mean corpuscular HGB conc (test 33.0 g/dL 31.5-36.2 code = mean corpuscular HGB conc) red cell distribution width (test 11.3 % 11.5-15.5 L code = red cell distribution width) Platelets [#/volume] in Blood (test 221 K/uL 137-338 code = 84710-2) Platelet mean volume [Entitic 8.5 fL 8.4-11.8 volume] in Blood (test code = 96823-6) Neutrophils.band form/100 95.1 % 44.4-80.1 leukocytes in Blood (test code = 59844-7) Lymphocytes/100 leukocytes in Body 4.0 % 10.0-50.0 L fluid (test code = 70594-6) Monocytes/100 leukocytes in Blood 0.6 % 3.6-12.04 L by Automated count (test code = 5905-5) Eosinophils/100 leukocytes in Blood 0.1 % 0.0-5.41 by Automated count (test code = 713-8) Basophils/100 leukocytes in 0.2 % 0.0-0.79 Unspecified specimen (test code = 13118-6) [facility], [id number] 04:12:00 NeutrophilsBandLymphocyteAtypical LymphMonocyteEosinophilBasophilPlatelet EstimatePlatelet MorphologyTarget CellsToxic GranulationToxic Vacuolation [facility]CB [facility] Auto Differential panel - [id number] 04:12:00 Test Item Value Reference Range Interpretation [...] fL 78-98 [Entitic volume] (test code = 60911-7) Erythrocyte mean corpuscular 31.3 pg 26.2-33.4 hemoglobin [Entitic mass] (test code = 65365-3) mean corpuscular HGB conc (test 33.0 g/dL 31.5-36.2 code = mean corpuscular HGB conc) red cell distribution width (test 11.3 % 11.5-15.5 L code = red cell distribution width) Platelets [#/volume] in Blood (test 221 K/uL 137-338 code = 31404-4) Platelet mean volume [Entitic 8.5 fL 8.4-11.8 volume] in Blood (test code = 75082-3) Neutrophils.band form/100 95.1 % 44.4-80.1 leukocytes in Blood (test code = 75916-0) Lymphocytes/100 leukocytes in Body 4.0 % 10.0-50.0 L fluid (test code = 15550-4) Monocytes/100 leukocytes in Blood 0.6 % 3.6-12.04 L by Automated count (test code = 5905-5) Eosinophils/100 leukocytes in Blood 0.1 % 0.0-5.41 by Automated count (test code = 713-8) Basophils/100 leukocytes in 0.2 % 0.0-0.79 Unspecified specimen (test code = 57698-9) [facility], [id number] 04:12:00 NeutrophilsBandLymphocyteAtypical LymphMonocyteEosinophilBasophilPlatelet EstimatePlatelet MorphologyTarget CellsToxic GranulationToxic Vacuolation [facility]CB [facility] Auto Differential panel - [id number] 03:30:00 Test Item Value Reference Range Interpretation [...] fL 78-98 [Entitic volume] (test code = 22946-7) Erythrocyte mean corpuscular 31.2 pg 26.2-33.4 hemoglobin [Entitic mass] (test code = 11163-1) mean corpuscular HGB conc (test 32.6 g/dL 31.5-36.2 code = mean corpuscular HGB conc) red cell distribution width (test 11.2 % 11.5-15.5 L code = red cell distribution width) Platelets [#/volume] in Blood (test 184 K/uL 137-338 code = 84313-2) Platelet mean volume [Entitic 8.4 fL 8.4-11.8 volume] in Blood (test code = 10092-7) Neutrophils.band form/100 59.6 % 44.4-80.1 leukocytes in Blood (test code = 60798-0) Lymphocytes/100 leukocytes in Body 31.9 % 10.0-50.0 fluid (test code = 40669-9) Monocytes/100 leukocytes in Blood 5.9 % 3.6-12.04 by Automated count (test code = 5905-5) Eosinophils/100 leukocytes in Blood 1.0 % 0.0-5.41 by Automated count (test code = 713-8) Basophils/100 leukocytes in 1.5 % 0.0-0.79 H Unspecified specimen (test code = 06920-0) [facility], [id number] 03:30:00 NeutrophilsLymphocyteMonocytePlatelet EstimatePlatelet MorphologyMaMerit Health MadisonComprehensive metabolic 2000 panel - Serum or [id number] 03:30:00 Test Item Value Reference Range Interpretation [...] Serum or Plasma (test code = 6768-6) [facility] W Auto Differential panel - [id number] 03:30:00 Test Item Value Reference Range Interpretation [...] fL 78-98 [Entitic volume] (test code = 80799-1) Erythrocyte mean corpuscular 31.2 pg 26.2-33.4 hemoglobin [Entitic mass] (test code = 98993-5) mean corpuscular HGB conc (test 32.6 g/dL 31.5-36.2 code = mean corpuscular HGB conc) red cell distribution width (test 11.2 % 11.5-15.5 L code = red cell distribution width) Platelets [#/volume] in Blood (test 184 K/uL 137-338 code = 99050-1) Platelet mean volume [Entitic 8.4 fL 8.4-11.8 volume] in Blood (test code = 82274-3) Neutrophils.band form/100 59.6 % 44.4-80.1 leukocytes in Blood (test code = 75660-5) Lymphocytes/100 leukocytes in Body 31.9 % 10.0-50.0 fluid (test code = 93957-4) Monocytes/100 leukocytes in Blood 5.9 % 3.6-12.04 by Automated count (test code = 5905-5) Eosinophils/100 leukocytes in Blood 1.0 % 0.0-5.41 by Automated count (test code = 713-8) Basophils/100 leukocytes in 1.5 % 0.0-0.79 H Unspecified specimen (test code = 98509-9) [facility], [id number] 03:30:00 NeutrophilsLymphocyteMonocytePlatelet EstimatePlatelet MorphologyMaMerit Health MadisonComprehensive metabolic 2000 panel - Serum or [id number] 03:30:00 Test Item Value Reference Range Interpretation [...] Serum or Plasma (test code = 6768-6) [facility] W Auto Differential panel - [id number] 03:30:00 Test Item Value Reference Range Interpretation [...] fL 78-98 [Entitic volume] (test code = 27475-2) Erythrocyte mean corpuscular 31.2 pg 26.2-33.4 hemoglobin [Entitic mass] (test code = 17472-1) mean corpuscular HGB conc (test 32.6 g/dL 31.5-36.2 code = mean corpuscular HGB conc) red cell distribution width (test 11.2 % 11.5-15.5 L code = red cell distribution width) Platelets [#/volume] in Blood (test 184 K/uL 137-338 code = 35618-5) Platelet mean volume [Entitic 8.4 fL 8.4-11.8 volume] in Blood (test code = 89287-5) Neutrophils.band form/100 59.6 % 44.4-80.1 leukocytes in Blood (test code = 44444-9) Lymphocytes/100 leukocytes in Body 31.9 % 10.0-50.0 fluid (test code = 38601-1) Monocytes/100 leukocytes in Blood 5.9 % 3.6-12.04 by Automated count (test code = 5905-5) Eosinophils/100 leukocytes in Blood 1.0 % 0.0-5.41 by Automated count (test code = 713-8) Basophils/100 leukocytes in 1.5 % 0.0-0.79 H Unspecified specimen (test code = 75014-0) [facility], [id number] 03:30:00 NeutrophilsLymphocyteMonocytePlatelet EstimatePlatelet MorphologyCovington [facility] HospitalComprehensive metabolic 2000 panel - Serum or [id number] 03:30:00 Test Item Value Reference Range Interpretation [...] Serum or Plasma (test code = 6768-6) [facility] W Auto Differential panel - [id number] 12:57:00 Test Item Value Reference Range Interpretation Comments white blood count (test code = 4.5 K/uL 4.0-11.5 white blood count) red blood count (test code = red 4.04 M/uL 3.80-5.20 blood count) Hemoglobin [Mass/volume] in Blood 12.7 g/dL 10.5-15.7 (test code = 718-7) hematocrit (test code = hematocrit) 38.3 % 34.0-50.0 Erythrocyte mean corpuscular volume 94.8 fL 78-98 [Entitic volume] (test code = 87255-9) Erythrocyte mean corpuscular 31.5 pg 26.2-33.4 hemoglobin [Entitic mass] (test code = 38014-4) mean corpuscular HGB conc (test 33.2 g/dL 31.5-36.2 code = mean corpuscular HGB conc) red cell distribution width (test 11.2 % 11.5-15.5 L code = red cell distribution width) Platelets [#/volume] in Blood (test 261 K/uL 137-338 code = 45155-5) Platelet mean volume [Entitic 9.0 fL 8.4-11.8 volume] in Blood (test code = 80789-7) Neutrophils.band form/100 67.1 % 44.4-80.1 leukocytes in Blood (test code = 57004-1) Lymphocytes/100 leukocytes in Body 24.5 % 10.0-50.0 fluid (test code = 44728-4) Monocytes/100 leukocytes in Blood 6.1 % 3.6-12.04 by Automated count (test code = 5905-5) Eosinophils/100 leukocytes in Blood 0.4 % 0.0-5.41 by Automated count (test code = 713-8) Basophils/100 leukocytes in 1.9 % 0.0-0.79 H Unspecified specimen (test code = 83743-9) [facility], [id number] 12:57:00 NeutrophilsLymphocyteMonocytePlatelet EstimatePlatelet MorphologyMaMerit Health MadisonComprehensive metabolic 2000 panel - Serum or [id number] 12:57:00 Test Item Value Reference Range Interpretation [...] Serum or Plasma (test code = 6768-6) [facility] W Auto Differential panel - [id number] 12:57:00 Test Item Value Reference Range Interpretation Comments white blood count (test code = 4.5 K/uL 4.0-11.5 white blood count) red blood count (test code = red 4.04 M/uL 3.80-5.20 blood count) Hemoglobin [Mass/volume] in Blood 12.7 g/dL 10.5-15.7 (test code = 718-7) hematocrit (test code = hematocrit) 38.3 % 34.0-50.0 Erythrocyte mean corpuscular volume 94.8 fL 78-98 [Entitic volume] (test code = 30839-0) Erythrocyte mean corpuscular 31.5 pg 26.2-33.4 hemoglobin [Entitic mass] (test code = 85421-0) mean corpuscular HGB conc (test 33.2 g/dL 31.5-36.2 code = mean corpuscular HGB conc) red cell distribution width (test 11.2 % 11.5-15.5 L code = red cell distribution width) Platelets [#/volume] in Blood (test 261 K/uL 137-338 code = 47109-1) Platelet mean volume [Entitic 9.0 fL 8.4-11.8 volume] in Blood (test code = 83353-1) Neutrophils.band form/100 67.1 % 44.4-80.1 leukocytes in Blood (test code = 62144-6) Lymphocytes/100 leukocytes in Body 24.5 % 10.0-50.0 fluid (test code = 62413-6) Monocytes/100 leukocytes in Blood 6.1 % 3.6-12.04 by Automated count (test code = 5905-5) Eosinophils/100 leukocytes in Blood 0.4 % 0.0-5.41 by Automated count (test code = 713-8) Basophils/100 leukocytes in 1.9 % 0.0-0.79 H Unspecified specimen (test code = 85494-4) [facility], [id number] 12:57:00 NeutrophilsLymphocyteMonocytePlatelet EstimatePlatelet MorphologyMaMerit Health MadisonComprehensive metabolic 2000 panel - Serum or [id number] 12:57:00 Test Item Value Reference Range Interpretation [...] Serum or Plasma (test code = 6768-6) [facility] W Auto Differential panel - [id number] 12:57:00 Test Item Value Reference Range Interpretation Comments white blood count (test code = 4.5 K/uL 4.0-11.5 white blood count) red blood count (test code = red 4.04 M/uL 3.80-5.20 blood count) Hemoglobin [Mass/volume] in Blood 12.7 g/dL 10.5-15.7 (test code = 718-7) hematocrit (test code = hematocrit) 38.3 % 34.0-50.0 Erythrocyte mean corpuscular volume 94.8 fL 78-98 [Entitic volume] (test code = 01875-3) Erythrocyte mean corpuscular 31.5 pg 26.2-33.4 hemoglobin [Entitic mass] (test code = 24602-8) mean corpuscular HGB conc (test 33.2 g/dL 31.5-36.2 code = mean corpuscular HGB conc) red cell distribution width (test 11.2 % 11.5-15.5 L code = red cell distribution width) Platelets [#/volume] in Blood (test 261 K/uL 137-338 code = 04981-6) Platelet mean volume [Entitic 9.0 fL 8.4-11.8 volume] in Blood (test code = 44747-3) Neutrophils.band form/100 67.1 % 44.4-80.1 leukocytes in Blood (test code = 04264-0) Lymphocytes/100 leukocytes in Body 24.5 % 10.0-50.0 fluid (test code = 19601-8) Monocytes/100 leukocytes in Blood 6.1 % 3.6-12.04 by Automated count (test code = 5905-5) Eosinophils/100 leukocytes in Blood 0.4 % 0.0-5.41 by Automated count (test code = 713-8) Basophils/100 leukocytes in 1.9 % 0.0-0.79 H Unspecified specimen (test code = 59703-0) [facility], [id number] 12:57:00 NeutrophilsLymphocyteMonocytePlatelet EstimatePlatelet MorphologyCovington [facility] HospitalComprehensive metabolic 2000 panel - Serum or [id number] 12:57:00 Test Item Value Reference Range Interpretation [...] Serum or Plasma (test code = 6768-6) [facility] HospitalUrinalysis macro (dipstick) panel - [id number] 12:22:43 Test Item Value Reference Range Interpretation Comments Leukocytes (test code = Trace Leukocytes) Nitrite (test code = Nitrite) positive Urobilinogen (test code = 8 Urobilinogen) Protein (test code = Protein) 100 pH (test code = pH) 6.0 Blood (test code = Blood) Negative Specific Hugo (test code = 1.020 Specific Hugo) Ketone (test code = Ketone) Large (80) Bilirubin (test code = Bilirubin) Large Glucose (test code = Glucose) Negative Appearance (test code = Clear Appearance) Color (test code = Color) Dark Yellow [facility]Urinal[facility] macro (dipstick) panel - [id number] 12:22:43 Test Item Value Reference Range Interpretation Comments Leukocytes (test code = Trace Leukocytes) Nitrite (test code = Nitrite) positive Urobilinogen (test code = 8 Urobilinogen) Protein (test code = Protein) 100 pH (test code = pH) 6.0 Blood (test code = Blood) Negative Specific Hugo (test code = 1.020 Specific Hugo) Ketone (test code = Ketone) Large (80) Bilirubin (test code = Bilirubin) Large Glucose (test code = Glucose) Negative Appearance (test code = Clear Appearance) Color (test code = Color) Dark Yellow [facility] (dipstick) panel - [id number] 12:22:43 Test Item Value Reference Range Interpretation Comments Leukocytes (test code = Trace Leukocytes) Nitrite (test code = Nitrite) positive Urobilinogen (test code = 8 Urobilinogen) Protein (test code = Protein) 100 pH (test code = pH) 6.0 Blood (test code = Blood) Negative Specific Hugo (test code = 1.020 Specific Hugo) Ketone (test code = Ketone) Large (80) Bilirubin (test code = Bilirubin) Large Glucose (test code = Glucose) Negative Appearance (test code = Clear Appearance) Color (test code = Color) Dark Yellow [facility] (dipstick) panel - [id number] 12:22:43 Test Item Value Reference Range Interpretation Comments Leukocytes (test code = Trace Leukocytes) Nitrite (test code = Nitrite) positive Urobilinogen (test code = 8 Urobilinogen) Protein (test code = Protein) 100 pH (test code = pH) 6.0 Blood (test code = Blood) Negative Specific Hugo (test code = 1.020 Specific Hugo) Ketone (test code = Ketone) Large (80) Bilirubin (test code = Bilirubin) Large Glucose (test code = Glucose) Negative Appearance (test code = Clear Appearance) Color (test code = Color) Dark Yellow [facility] (dipstick) panel - [id number] 12:22:43 Test Item Value Reference Range Interpretation Comments Leukocytes (test code = Trace Leukocytes) Nitrite (test code = Nitrite) positive Urobilinogen (test code = 8 Urobilinogen) Protein (test code = Protein) 100 pH (test code = pH) 6.0 Blood (test code = Blood) Negative Specific Hugo (test code = 1.020 Specific Hugo) Ketone (test code = Ketone) Large (80) Bilirubin (test code = Bilirubin) Large Glucose (test code = Glucose) Negative Appearance (test code = Clear Appearance) Color (test code = Color) Dark Yellow [facility]emat[facility] panel - [id number] 06:06:00 Test Item Value Reference Range Interpretation Comments Hemoglobin [Mass/volume] in Blood 13.1 g/dL 10.5-15.7 (test code = 718-7) hematocrit (test code = hematocrit) 39.2 % 34.0-50.0 [facility] - Serum or Plasma [...] Serum or Plasma (test code = 6768-6) [facility] - [id number] 06:06:00 Test Item Value Reference Range Interpretation Comments Hemoglobin [Mass/volume] in Blood 13.1 g/dL 10.5-15.7 (test code = 718-7) hematocrit (test code = hematocrit) 39.2 % 34.0-50.0 [facility]Com[facility] - Serum or Plasma [...] Serum or Plasma (test code = 6768-6) [facility] - [id number] 06:06:00 Test Item Value Reference Range Interpretation Comments Hemoglobin [Mass/volume] in Blood 13.1 g/dL 10.5-15.7 (test code = 718-7) hematocrit (test code = hematocrit) 39.2 % 34.0-50.0 [facility]Com[facility] - Serum or Plasma [...] Serum or Plasma (test code = 6768-6) [facility] - [id number] 08:02:00 Test Item Value Reference Range Interpretation Comments Hemoglobin [Mass/volume] in Blood 11.9 g/dL 10.5-15.7 (test code = 718-7) hematocrit (test code = hematocrit) 34.5 % 34.0-50.0 [facility]Com[facility] - Serum or Plasma [...] Serum or Plasma (test code = 6768-6) [facility] - [id number] 08:02:00 Test Item Value Reference Range Interpretation Comments Hemoglobin [Mass/volume] in Blood 11.9 g/dL 10.5-15.7 (test code = 718-7) hematocrit (test code = hematocrit) 34.5 % 34.0-50.0 [facility] - Serum or Plasma [...] Serum or Plasma (test code = 6768-6) [facility] - [id number] 08:02:00 Test Item Value Reference Range Interpretation Comments Hemoglobin [Mass/volume] in Blood 11.9 g/dL 10.5-15.7 (test code = 718-7) hematocrit (test code = hematocrit) 34.5 % 34.0-50.0 [facility] - Serum or Plasma [...] Serum or Plasma (test code = 6768-6) [facility] W Auto Differential panel - [id number] 02:57:00 Test Item Value Reference Range Interpretation Comments white blood count (test code = 5.1 K/uL 4.0-11.5 white blood count) red blood count (test code = red 4.29 M/uL 3.80-5.20 blood count) Hemoglobin [Mass/volume] in Blood 14.0 g/dL 10.5-15.7 (test code = 718-7) hematocrit (test code = hematocrit) 41.3 % 34.0-50.0 Erythrocyte mean corpuscular volume 96.3 fL 78-98 [Entitic volume] (test code = 27558-2) Erythrocyte mean corpuscular 32.6 pg 26.2-33.4 hemoglobin [Entitic mass] (test code = 00423-5) mean corpuscular HGB conc (test 33.9 g/dL 31.5-36.2 code = mean corpuscular HGB conc) red cell distribution width (test 10.3 % 11.5-15.5 L code = red cell distribution width) Platelets [#/volume] in Blood (test 216 K/uL 137-338 code = 69677-0) Platelet mean volume [Entitic 9.2 fL 8.4-11.8 volume] in Blood (test code = 32816-1) Neutrophils.band form/100 69.8 % 44.4-80.1 leukocytes in Blood (test code = 86845-1) Lymphocytes/100 leukocytes in Body 22.0 % 10.0-50.0 fluid (test code = 89786-2) Monocytes/100 leukocytes in Blood 6.1 % 3.6-12.04 by Automated count (test code = 5905-5) Eosinophils/100 leukocytes in Blood 0.3 % 0.0-5.41 by Automated count (test code = 713-8) Basophils/100 leukocytes in Blood 1.8 % 0.0-0.79 H by Automated count (test code = 706-2) [facility], [id number] 02:57:00 NeutrophilsBandLymphocyteAtypical LymphMonocyteEosinophilBasophilPlatelet EstimatePlatelet MorphologyPoikilocytosisTarget CellsHypersegmented PolysRouleauToxic VacuolationSmudge CellsCovington [facility] HospitalComprehensive metabolic 2000 panel - Serum or [id number] 02:57:00 Test Item Value Reference Range Interpretation [...] Serum or Plasma (test code = 6768-6) [facility]CBC [facility] Differential panel - [id number] 02:57:00 Test Item Value Reference Range Interpretation Comments white blood count (test code = 5.1 K/uL 4.0-11.5 white blood count) red blood count (test code = red 4.29 M/uL 3.80-5.20 blood count) Hemoglobin [Mass/volume] in Blood 14.0 g/dL 10.5-15.7 (test code = 718-7) hematocrit (test code = hematocrit) 41.3 % 34.0-50.0 Erythrocyte mean corpuscular volume 96.3 fL 78-98 [Entitic volume] (test code = 83679-9) Erythrocyte mean corpuscular 32.6 pg 26.2-33.4 hemoglobin [Entitic mass] (test code = 10916-4) mean corpuscular HGB conc (test 33.9 g/dL 31.5-36.2 code = mean corpuscular HGB conc) red cell distribution width (test 10.3 % 11.5-15.5 L code = red cell distribution width) Platelets [#/volume] in Blood (test 216 K/uL 137-338 code = 54005-2) Platelet mean volume [Entitic 9.2 fL 8.4-11.8 volume] in Blood (test code = 93899-0) Neutrophils.band form/100 69.8 % 44.4-80.1 leukocytes in Blood (test code = 59929-6) Lymphocytes/100 leukocytes in Body 22.0 % 10.0-50.0 fluid (test code = 19668-0) Monocytes/100 leukocytes in Blood 6.1 % 3.6-12.04 by Automated count (test code = 5905-5) Eosinophils/100 leukocytes in Blood 0.3 % 0.0-5.41 by Automated count (test code = 713-8) Basophils/100 leukocytes in Blood 1.8 % 0.0-0.79 H by Automated count (test code = 706-2) [facility], [id number] 02:57:00 NeutrophilsBandLymphocyteAtypical LymphMonocyteEosinophilBasophilPlatelet EstimatePlatelet MorphologyPoikilocytosisTarget CellsHypersegmented PolysRouleauToxic VacuolationSmudge CellsCovington [facility] HospitalComprehensive metabolic 2000 panel - Serum or [id number] 02:57:00 Test Item Value Reference Range Interpretation [...] Serum or Plasma (test code = 6768-6) [facility]CBC [facility] Differential panel - [id number] 02:57:00 Test Item Value Reference Range Interpretation Comments white blood count (test code = 5.1 K/uL 4.0-11.5 white blood count) red blood count (test code = red 4.29 M/uL 3.80-5.20 blood count) Hemoglobin [Mass/volume] in Blood 14.0 g/dL 10.5-15.7 (test code = 718-7) hematocrit (test code = hematocrit) 41.3 % 34.0-50.0 Erythrocyte mean corpuscular volume 96.3 fL 78-98 [Entitic volume] (test code = 33672-7) Erythrocyte mean corpuscular 32.6 pg 26.2-33.4 hemoglobin [Entitic mass] (test code = 20716-4) mean corpuscular HGB conc (test 33.9 g/dL 31.5-36.2 code = mean corpuscular HGB conc) red cell distribution width (test 10.3 % 11.5-15.5 L code = red cell distribution width) Platelets [#/volume] in Blood (test 216 K/uL 137-338 code = 37958-6) Platelet mean volume [Entitic 9.2 fL 8.4-11.8 volume] in Blood (test code = 97933-3) Neutrophils.band form/100 69.8 % 44.4-80.1 leukocytes in Blood (test code = 62754-4) Lymphocytes/100 leukocytes in Body 22.0 % 10.0-50.0 fluid (test code = 16137-9) Monocytes/100 leukocytes in Blood 6.1 % 3.6-12.04 by Automated count (test code = 5905-5) Eosinophils/100 leukocytes in Blood 0.3 % 0.0-5.41 by Automated count (test code = 713-8) Basophils/100 leukocytes in Blood 1.8 % 0.0-0.79 H by Automated count (test code = 706-2) [facility], [id number] 02:57:00 NeutrophilsBandLymphocyteAtypical LymphMonocyteEosinophilBasophilPlatelet EstimatePlatelet MorphologyPoikilocytosisTarget CellsHypersegmented PolysRouleauToxic VacuolationSmudge CellsMaMerit Health MadisonComprehensive metabolic 2000 panel - Serum or [id number] 02:57:00 Test Item Value Reference Range Interpretation [...] Serum or Plasma (test code = 6768-6) [facility] W Auto Differential panel - [id number] 07:30:00 Test Item Value Reference Range Interpretation [...] 78-98 H [Entitic volume] (test code = 43843-1) Erythrocyte mean corpuscular 33.0 pg 26.2-33.4 hemoglobin [Entitic mass] (test code = 66832-3) mean corpuscular HGB conc (test 33.4 g/dL 31.5-36.2 code = mean corpuscular HGB conc) red cell distribution width (test 11.3 % 11.5-15.5 L code = red cell distribution width) Platelets [#/volume] in Blood (test 207 K/uL 137-338 code = 78127-5) Platelet mean volume [Entitic 7.7 fL 8.4-11.8 L volume] in Blood (test code = 27137-5) Neutrophils.band form/100 54.8 % 44.4-80.1 leukocytes in Blood (test code = 60606-1) Lymphocytes/100 leukocytes in Body 35.5 % 10.0-50.0 fluid (test code = 61648-1) Monocytes/100 leukocytes in Blood 6.5 % 3.6-12.04 by Automated count (test code = 5905-5) Eosinophils/100 leukocytes in Blood 1.4 % 0.0-5.41 by Automated count (test code = 713-8) Basophils/100 leukocytes in Blood 1.7 % 0.0-0.79 H by Automated count (test code = 706-2) [facility]different[facility], [id number] 07:30:00 NeutrophilsBandLymphocyteMonocytePlatelet EstimateMatagoLackey Memorial HospitalRubella virus IgG Ab [Titer] in [id number] 07:30:00 Test Item Value Reference Range Interpretation Comments Rubella virus IgG Ab 106.7 [IU]/mL [Units/volume] in Serum by Immunoassay (test code = 5334-8) [facility] HospitalHIV 1+2 Ab [Presence] in [id number] 07:30:00HIV P24 AgHIV-1/2 AbMataTurning Point Mature Adult Care UnitABO & Rh group [Type] in [id number] 07:30:00 Test Item Value Reference Range Interpretation Comments Rh [Type] in Blood (test code = 4+ 39415-2) ABO and Rh group panel - Blood Ab positive (test code = 11656-7) [facility] HospitalBlood group antibody screen [Presence] in Serum or Plasma 2019-01-26 07:30:00 Test Item Value Reference Range Interpretation Comments Blood group antibody screen negative [Presence] in Serum or Plasma (test code = 890-4) [facility] HospitalReagin Ab [Presence] in Serum by [id number] 07:30:00 Test Item Value Reference Range Interpretation Comments Reagin Ab [Presence] in Serum by nonreactive nonreactive RPR (test code = 75415-3) [facility] HospitalHepatitis B virus surface Ag [Presence] in Serum 2019-01-26 07:30:00 Test Item Value Reference Range Interpretation Comments .hepatitis B surface antigen (test negative negative code = .hepatitis B surface antigen) [facility] HospitalBacteria identified in Urine by [id number] 07:30:00 Test Item Value Reference Range Interpretation Comments Bacteria identified in no growth at 48 hrs. Urine by Culture (test code = 630-4) [facility] HospitalCB W Auto Differential panel - [id number] 07:30:00 Test Item Value Reference Range Interpretation [...] 78-98 H [Entitic volume] (test code = 79768-2) Erythrocyte mean corpuscular 33.0 pg 26.2-33.4 hemoglobin [Entitic mass] (test code = 06166-9) mean corpuscular HGB conc (test 33.4 g/dL 31.5-36.2 code = mean corpuscular HGB conc) red cell distribution width (test 11.3 % 11.5-15.5 L code = red cell distribution width) Platelets [#/volume] in Blood (test 207 K/uL 137-338 code = 56935-5) Platelet mean volume [Entitic 7.7 fL 8.4-11.8 L volume] in Blood (test code = 72853-4) Neutrophils.band form/100 54.8 % 44.4-80.1 leukocytes in Blood (test code = 80688-9) Lymphocytes/100 leukocytes in Body 35.5 % 10.0-50.0 fluid (test code = 25228-5) Monocytes/100 leukocytes in Blood 6.5 % 3.6-12.04 by Automated count (test code = 5905-5) Eosinophils/100 leukocytes in Blood 1.4 % 0.0-5.41 by Automated count (test code = 713-8) Basophils/100 leukocytes in Blood 1.7 % 0.0-0.79 H by Automated count (test code = 706-2) [facility]different[facility] panel, [id number] 07:30:00 NeutrophilsBandLymphocyteMonocytePlatelet EstimateMaMerit Health MadisonRubella virus IgG Ab [Titer] in [id number] 07:30:00 Test Item Value Reference Range Interpretation Comments Rubella virus IgG Ab 106.7 [IU]/mL [Units/volume] in Serum by Immunoassay (test code = 5334-8) [facility] HospitalHIV 1+2 Ab [Presence] in [id number] 07:30:00HIV P24 AgHIV-1/2 AbMaMerit Health MadisonABO & Rh group [Type] in [id number] 07:30:00 Test Item Value Reference Range Interpretation Comments Rh [Type] in Blood (test code = 4+ 46040-7) ABO and Rh group panel - Blood Ab positive (test code = 99938-3) [facility] HospitalBlood group antibody screen [Presence] in Serum or Plasma 2019-01-26 07:30:00 Test Item Value Reference Range Interpretation Comments Blood group antibody screen negative [Presence] in Serum or Plasma (test code = 890-4) [facility] HospitalReagin Ab [Presence] in Serum by [id number] 07:30:00 Test Item Value Reference Range Interpretation Comments Reagin Ab [Presence] in Serum by nonreactive nonreactive RPR (test code = 59480-1) [facility] HospitalHepatitis B virus surface Ag [Presence] in Serum 2019-01-26 07:30:00 Test Item Value Reference Range Interpretation Comments .hepatitis B surface antigen (test negative negative code = .hepatitis B surface antigen) [facility] HospitalBacteria identified in Urine by [id number] 07:30:00 Test Item Value Reference Range Interpretation Comments Bacteria identified in no growth at 48 hrs. Urine by Culture (test code = 630-4) [facility] W Auto Differential panel - [id number] 07:30:00 Test Item Value Reference Range Interpretation [...] 78-98 H [Entitic volume] (test code = 75930-1) Erythrocyte mean corpuscular 33.0 pg 26.2-33.4 hemoglobin [Entitic mass] (test code = 86511-4) mean corpuscular HGB conc (test 33.4 g/dL 31.5-36.2 code = mean corpuscular HGB conc) red cell distribution width (test 11.3 % 11.5-15.5 L code = red cell distribution width) Platelets [#/volume] in Blood (test 207 K/uL 137-338 code = 53331-9) Platelet mean volume [Entitic 7.7 fL 8.4-11.8 L volume] in Blood (test code = 17298-0) Neutrophils.band form/100 54.8 % 44.4-80.1 leukocytes in Blood (test code = 40159-1) Lymphocytes/100 leukocytes in Body 35.5 % 10.0-50.0 fluid (test code = 03546-2) Monocytes/100 leukocytes in Blood 6.5 % 3.6-12.04 by Automated count (test code = 5905-5) Eosinophils/100 leukocytes in Blood 1.4 % 0.0-5.41 by Automated count (test code = 713-8) Basophils/100 leukocytes in Blood 1.7 % 0.0-0.79 H by Automated count (test code = 706-2) [facility] Groupdifferent[facility] panel, [id number] 07:30:00 NeutrophilsBandLymphocyteMonocytePlatelet EstimateMaMerit Health MadisonRubella virus Ab [Titer] in [id number] 07:30:00 Test Item Value Reference Range Interpretation Comments Rubella virus IgG Ab 106.7 [IU]/mL [Units/volume] in Serum by Immunoassay (test code = 5334-8) [facility] GroupHIV 1+2 Ab [Presence] in [id number] 07:30:00HIV P24 AgHIV-1/2 AbMaMerit Health MadisonABO & Rh group [Type] in [id number] 07:30:00 Test Item Value Reference Range Interpretation Comments Rh [Type] in Blood (test code = 4+ 28080-7) ABO and Rh group panel - Blood Ab positive (test code = 73333-0) [facility] HospitalBlood group antibody screen [Presence] in Serum or Plasma 2019-01-26 07:30:00 Test Item Value Reference Range Interpretation Comments Blood group antibody screen negative [Presence] in Serum or Plasma (test code = 890-4) [facility] HospitalReagin Ab [Presence] in Serum by [id number] 07:30:00 Test Item Value Reference Range Interpretation Comments Reagin Ab [Presence] in Serum by nonreactive nonreactive RPR (test code = 49579-1) [facility] HospitalHepatitis B virus surface Ag [Presence] in Serum 2019-01-26 07:30:00 Test Item Value Reference Range Interpretation Comments .hepatitis B surface antigen (test negative negative code = .hepatitis B surface antigen) [facility] HospitalBacteria identified in Urine by [id number] 07:30:00 Test Item Value Reference Range Interpretation Comments Bacteria identified in no growth at 48 hrs. Urine by Culture (test code = 630-4) [facility] Centeropin.beta subunit [Units/volume] in Serum or [id number] 02:05:00 Test Item Value Reference Range Interpretation Comments HCG quantitative (test code = 4590.0 mIU/mL 0-5 H HCG quantitative) [facility] Hospitalriogodotropin.beta subunit [Units/volume] in Serum or [id number] 02:05:00 Test Item Value Reference Range Interpretation Comments HCG quantitative (test code = 4590.0 mIU/mL 0-5 H HCG quantitative) [facility] Hospitalgovirginia mason health systemtropin.beta subunit [Units/volume] in Serum or [id number] 02:05:00 Test Item Value Reference Range Interpretation Comments HCG quantitative (test code = 4590.0 mIU/mL 0-5 H HCG quantitative) [facility] W Auto Differential panel - [id number] 11:00:00 Test Item Value Reference Range Interpretation [...] 78-98 H [Entitic volume] (test code = 68393-5) Erythrocyte mean corpuscular 32.4 pg 26.2-33.4 hemoglobin [Entitic mass] (test code = 63335-2) mean corpuscular HGB conc (test 32.5 g/dL 31.5-36.2 code = mean corpuscular HGB conc) red cell distribution width (test 11.4 % 11.5-15.5 L code = red cell distribution width) Platelets [#/volume] in Blood (test 212 K/uL 137-338 code = 46292-0) Platelet mean volume [Entitic 8.4 fL 8.4-11.8 volume] in Blood (test code = 22519-8) Neutrophils.band form/100 53.6 % 44.4-80.1 leukocytes in Blood (test code = 96641-2) Lymphocytes/100 leukocytes in Body 37.4 % 10.0-50.0 fluid (test code = 08250-0) Monocytes/100 leukocytes in Blood 5.5 % 3.6-12.04 by Automated count (test code = 5905-5) Eosinophils/100 leukocytes in Blood 1.9 % 0.0-5.41 by Automated count (test code = 713-8) Basophils/100 leukocytes in Blood 1.6 % 0.0-0.79 H by Automated count (test code = 706-2) [facility]different[facility] panel, [id number] 11:00:00 NeutrophilsBandLymphocyteMonocyteEosinophilBasophilPlatelet EstimatePlatelet MorphologyPolychromasiaHypochromasiaPoikilocytosisBasophilic StipplingAnisocytosisMicrocytosisMacrocytosisOvalocytesStomatocyteBurr CellsAcanthocytesMatagoLackey Memorial HospitalReagin Ab [Presence] in Serum by RPR 2019-01-03 11:00:00 Test Item Value Reference Range Interpretation Comments Reagin Ab [Presence] in Serum by nonreactive nonreactive RPR (test code = 44437-1) [facility] HospitalComprehensive metabolic 2000 panel - Serum or Plasma [...] Serum or Plasma (test code = 6768-6) [facility] HospitalHIV 1+2 Ab [Presence] in [id number] 11:00:00HIV P24 AgHIV-1/2 AbMataTurning Point Mature Adult Care UnitHepatitis B virus surface Ag [Presence] in [id number] 11:00:00 Test Item Value Reference Range Interpretation Comments .hepatitis B surface antigen (test negative negative code = .hepatitis B surface antigen) [facility] Notes Date/Time Note Provider Source 2019-08-29 21:34:00-00:00 [facility] OB Disch REPORT#:[id number] REPORT STATUS: Signed DATE:08/29/19 TIME: 2133 PATIENT: JADE MURILLO UNIT #: [id number] ROOM/BED: [facility] : 90 AGE: 29 SEX: F ATTEND: Isaiah Chase MD ADM AUTHOR: Isaiah Chase MD * ALL edits or amendments must be made on the [facility]/computer document * Subjective Subjective Patient reports: Patient reports: Yes: normal lochia, pain management effective, tolerating po well, voiding well, flatus. No: complaints. Comments: seen around 8am Objective General VS: Vital Signs Date Temp Pulse Resp B/P B/P Mean Pulse Ox FiO2 08/29 98.2-99.0 89-108 18- 113-131/76-81 88.2 -97.7 Last Documented: Result Date Time B/P 113/08/29 Temp 98.2 08/29 1715 Pulse 89 08/29 1715 Resp 20 08/29 1715 B/P Mean 88.2 08/29 0412 Pulse Ox 100 08/26 2015 Patient Weight Weight (lb): 128 Weight (oz): Weight (kg): 58.06 Physical Exam Neuro: Exam: alert, oriented x3, normal speech Abdomen: post gravid, soft, no abnormal tenderne ss Incision site: well approximated edges, nicolle intact, dry, no drainage, no inflammation Uterus: involution appropriate, non-tender Fundus: firm, below the umbilicus, non-tender Discharge Summary Discharge Summary Hospital course: nml postop/ postpart care, ADMITTED FOR IUGR, received celestone and she was watched inpatient due to high sd and abnormal dopplers, also periodic prolonged decels, then had primary cd Plan: routine care, discharge tomorro w Discharge meds: Continue taking these medications: SCOPOLAMINE (TRANSDERM-SCOP 1.5 MG) 1.5 MG/72 HR PATCH 1 PATCH TRANSDERMAL ONE TIME ONLY. Start taking the following new medications: DOCUSATE SODIUM (COLACE) 100 MG CAP 100 MILLIGRAM ORAL 0900 2100. as needed for CON STIPATION Qty = 20 No Refills IBUPROFEN (MOTRIN) 600 MG TAB 600 MILLIGRAM ORAL EVERY 6 HOURS NEEDED. as needed for PAIN SCALE 1-3 ( USE 1ST) Qty = 30 No Refills oxyCODONE HCL/ACETAMINOPHEN (PERCOCET 5/325 MG) 1 TAB TAB 1 TABLET ORAL EVERY 6 HOURS NEEDED. as neede d for SEVERE PAIN (SCALE 7 - 10) Qty = 30 No Refills Discharge diagnosis: s/p CD for IUGR, periodic d ecels, and IUGR and abnormal Dopplers, anemia from acute blood loss due to hernandez rgery Electronically Signed by Isaiah Chase MD on 08/29 at 2137 [facility] #:[id number] END OF REPORT 2019-08-29 19:07:00-00:00 [id number] [facility] [address] [place], [place] [address] PATIENT NAME: JADE MURILLO ADMIT DATE: 08/02/19 ACCOUNT NO: [id number] ROOM NO: .2023 AGE: 29 SEX: F ADMITTING PHYSICIAN: Isaiah Chase MD ATTENDING PHYSICIAN: Isaiah Chase MD OPERATION DATE: 08/26/2019 PREOPERATIVE DIAGNOSES: 1. Intrauterine at 35 plus weeks. 2. Intrauterine growth restriction. 3. Abnormal Dopplers. 4. Periodic prolonged decelerations. POSTOPERATIVE DIAGNOSES: 1. Intrauterine at 35 plus weeks. 2. Intrauterine growth restriction. 3. Abnormal Dopplers. 4. Periodic prolonged decelerations. PROCEDURE: Primary low segment section via Pfannenstiel. SURGEON: Isaiah Chase MD BACK WINDER: Cyndi Jarvis SA COMPLICATIONS: None. ESTIMATED BLOOD LOSS: 600 mL. INTRAVENOUS FLUIDS: 1000 mL LR. URINE OUTPUT: Clear at the end of the procedure. FINDINGS: Male , cephalic presentation, Ap gars 8 and 9. Weight 1920 grams, to NICU. Placenta 3-vessel cord intact. U terus, tubes, and ovaries looked normal. PROCEDURE IN DETAIL: After t risks, benefits, alternatives, and the nature of the procedure were discussed with the patient at length. She voiced understanding, all her questions were answered t o her satisfaction and signed the consent. She was taken to the operating room where spinal anesthesia was found to be adequate. She was then prepared and draped in the normal sterile fashion in the dorsal supine position with a leftward tilt. A Pfannenstiel skin incision was done with a scalpel and carried kacie n to the underlying layer of fascia, which was incised in midline and extended laterally with Gale scissors. The fascial borders were serially graspe d with Brandon clamps, elevated and the underlying layer of muscles with dissected off b luntly. The muscles were in the midline as well as peritoneum. The bladder blade was inserted. PATIENT NAME: JADE MURILLO 2091 The vesicouterine peritoneu m was entered with Metzenbaum scissors and extended laterally. The bladder flap was created. Bladder blade was reinserted and the lower segment of the uterus was incised in the m idline and extended laterally with the bandage scissors. Amniotomy was done wi th clear fluid obtained. The head was delivered atraumatically followed by th e rest of the body. Nose and mouth were suctioned. Cord clamped and cut. Baby handed off to the awaiting baby care team. Placenta was delivered spontaneo usly. The uterus was exteriorized and cleared of all clots and debris . The uterine incision was closed with 1.0 chromic in usual locked fashion. Another layer of the same suture was placed to obtain excellent hemostasis . The uterus was returned to the abdomen. The gutters were cleared of all dodie ts and debris. Excellent hemostasis was noted. The abdominal muscles were reapproximated with interrupted 2.0 Vicryl stitches incorporating th e underlying layer of peritoneum. Excellent hemostasis was noted. The fascia was closed with 0 Vicryl in a running fashion. Excellent hemostasi s was noted. Irrigation with warm normal saline was done and excellent hemost asis was noted. The skin was closed with nicolle. Excellent hemostasis was no lissette. All counts were correct. The patient was taken to the recovery room awake and stable condition. PATHOLOGY: Placenta. Dictated By: Isaiah Chase MD WT: OP:FVIVI/SHANIA/ROMAN Conf#: [id number]/DID#: [id number] Authenticated by Isaiah Chase MD On 09/27/2019 0 6:43:29 AM Electronically Signed by Isaiah Chase MD on 09/09 at 0643 PATIENT NAME: JADE MURILLO 092 2019-08-28 21:20:00-00:00 [facility] ([facility]) OB Postpart Progr Note REPORT#:[id number] REPORT STATUS: Signed DATE:08/28/19 TIME: 2119 PATIENT: JADE MURILLO UNIT #: [id number] ROOM/BED: : 90 AGE: 29 SEX: F ATTEND: Isaiah Chase MD ADM AUTHOR: Isaiah Chase MD * ALL edits or amendments must be made on the [facility] document * Subjective Subjective Patient reports: Patient reports: Yes: normal lochia, pain management effective, tolerating po well, voiding well, tolerating ambulation, flatus. No: complai nts. Objective General VS: Vital Signs Date Temp Pulse Resp B/P B/P Mean Pulse Ox FiO2 08/28 98.0-98.8 87-110 97-115/66-77 76.1 Last Documented: Result Date Time B/P 97/66 08/28 1957 Temp 98.7 08/28 1957 Pulse 110 08/28 1957 Resp 20 08/28 1957 B/P Mean 76.1 08/28 1957 Pulse Ox 100 08/26 2015 Patient Weight Weight (lb): 128 Weight (oz): Weight (kg): 58.06 Physical Exam Neuro: Exam: alert, oriented x3, normal speech Abdomen: soft, no abnormal tenderness Incision site: well approximated edges, nicolle intact, dry, no drainage, no inflammation Uterus: firm, involution appropriate, non-tender Fundus: firm, below the umbilicus, non-tender Diagnosis, Assessment Plan Diagnosis, Assessment Plan Assessment: nml progress Plan: routine care Electronically Signed by Isaiah Chase MD on 08/28 at 0 RPT #:[id number] END OF REPORT 2019-08-27 16:35:00-00:00 [facility] ([facility]) OB Postpart Progr Note REPORT#:[id number] REPORT STATUS: Signed DATE:08/27/19 TIME: 1634 PATIENT: JADE MURILLO UNIT #: [id number] ROOM/BED: [address] : 90 AGE: 29 SEX: F ATTEND: Wilder Chase MD ADM AUTHOR: Isaiah Chase MD * ALL edits or amendments must be made on the el ectronic/computer document * Subjective Subjective Patient reports: Patient reports: Yes: normal lochia, pain management eff ective, tolerating po well, tolerating ambulation, flatus. No: complaints. Objective Nursing Documentation Review Nursing data: The data set between the solid lines has been im ported from nursing documentation. Any exceptions have been noted be low under Provider comments. Feeding preference: Provider comments on imported nursing data: [] Physical Exam Neuro: Exam: alert, oriented x3, normal speech Abdomen: soft, no abnormal tenderness Incision site: well approximated edges, nicolle intact, dry, no drainage, no inflammation Uterus: firm, involution appropriate, non-tender Fundus: firm, below the umbilicus, non-tender Diagnosis, Assessment Plan Diagnosis, Assessment Plan Assessment: nml progress Plan: routine care Electronically Signed by Isaiah Chase MD on 08/27 at 1635 RPT #:[id number] END OF REPORT 2019-08-25 20:54:00-00:00 [facility] ([facility]) OB Antepartum Prog Note REPORT#:[id number] REPORT STATUS: Signed DATE:08/25/19 TIME: 2053 PATIENT: JADE MURILLO UNIT #: [id number] ROOM/BED: [address] : 90 AGE: 29 SEX: F ATTEND: Isaiah Chase MD ADM AUTHOR: Isaiah Chase MD * ALL edits or amendments must be made on the [facility] document * Subjective Subjective Patient reports: Patient reports: Yes normal movement, No no complaints, No abdominal pain, No vaginal bleeding, No leaking fluid, No contractions Comments: seen around 8am Objective General VS: Last Documented: Result Date Time Temp 98.2 08/25 0851 Resp 18 08/25 0851 B/P Mean 87.0 08/25 0851 B/P 116/69 08/25 0851 Pulse 77 08/25 0851 Pulse Ox 97 08/23 0832 Vital Signs Date Temp Pulse Resp B/P B/P Mean Pulse Ox FiO2 08/24-08/25 98.2-98.3 77-83 18 110-116/69 84.0- 87.0 Patient Weight Weight (lb): 128 Weight (oz): Weight (kg): 58.06 Physical Exam HEENT: normocephalic w/o injury Breasts: deferred Neuro: Exam: alert, oriented x3, normal speech Abdomen: gravid, soft, no abnormal tenderness Baby A: Baby A baseline: 140 bpm Baby A variability: moderate 6-25 bpm Baby A accelerations: 15 X 15 Baby A FHR category: category 1 Diagnosis, Assessment Plan Diagnosis, Assessment Plan Free Text A P: ULTRASOUND: CEPHALIC, EFW 1641 GMS AT 1% (NO WEIGHT GAIN), NANCY CM, BPP 8/8, UA DOPPLERS WITH ELEVATED SD RATIO Assessment: IUP 35 4/7 WEEKS, IUGR, BOREDERLINE LOW NANCY, ELEVATED SD ON UA DOPPLERS, no weight gain today Plan: continue current managmnt, betamethasone a dmin, surveillance, DELIVER FOR NON REASSURING TESTING, otherwise in am Electronically Signed by Isaiah Chase MD on 08/25 at 2100 RPT #:[id number] END OF REPORT 2019-08-24 20:53:00-00:[address] [facility] ([facility]) OB Antepartum Prog Note REPORT#:[id number] REPORT STATUS: Signed DATE:08/24/19 TIME: 2052 PATIENT: JADE MURILLO UNIT #: [id number] ROOM/BED: [address] : 90 AGE: 29 SEX: F ATTEND: Isaiah Chase MD ADM AUTHOR: Isaiah Chase MD * ALL edits or amendments must be made on the [facility] document * Subjective Subjective Patient reports: Patient reports: Yes normal movement, No no complaints, No abdominal pain, No vaginal bleeding, No leaking fluid, No contractions Comments: SEEN AROUND 8AM Objective General VS: Last Documented: Result Date Time Temp 98.2 08/24 0916 Resp 18 08/24 0916 B/P Mean 93.0 08/24 0916 B/P 120/76 08/24 916 Pulse 84 08/24 09 Pulse Ox 97 08/23 0832 Vital Signs Date Temp Pulse Resp B/P B/P Mean Pulse Ox FiO2 08/23-08/24 98.1-98.2 74-84 - 100-120/65-76 77.0-93.0 Patient Weight Weight (lb): 128 Weight (oz): Weight (kg): 58.06 Physical Exam HEENT: normocephalic w/o injury Breasts: deferred Neuro: Exam: alert, oriented x3, normal speech Abdomen: gravid, soft, no abnormal tenderness Baby A: Baby A baseline: 140 bpm Baby A variability: moderate 6-25 bpm Baby A accelerations: 15 X 15 Baby A FHR category: category 1 Baby A notes: had a 3 min decel earlier to my visit and recove red well Diagnosis, Assessment Plan Diagnosis, Assessment Plan Assessment: IUP 35 3/7 WEEKS, IUGR, BOREDERLINE LOW NANCY, ELEVATED SD ON UA DOPPLERS Plan: continue current managmnt, betamethasone a dmin, surveillance, DELIVER FOR NON REASSURING TESTING, otherwise TH IS SATURDAY Electronically Signed by Isaiah Chase MD on 08/24 at 2053 RPT #:[id number] END OF REPORT 2019-08-23 20:03:00-00:00 [facility] [place] ([facility]) OB Antepartum Prog Note REPORT#:[id number] REPORT STATUS: Signed DATE:08/23/19 TIME: 2002 PATIENT: JADE MURILLO UNIT #: [id number] ROOM/BED: [address] : 90 AGE: 29 SEX: F ATTEND: Isaiah Chase MD ADM AUTHOR: Isaiah Chase MD * ALL edits or amendments must be made on the [facility] document * Subjective Subjective Patient reports: Patient reports: Yes normal movement, No no complaints, No abdominal pain, No vaginal bleeding, No leaking fluid, No contractions Comments: seen around 8am Objective General VS: Last Documented: Result Date Time Temp 98.1 08/23 0832 Resp 16 08/23 0832 B/P Mean 108.0 08/23 0832 Pulse Ox 97 08/23 0832 B/P 131/96 08/23 0832 Pulse 98 08/23 0832 Vital Signs Date Temp Pulse Resp B/P B/P Mean Pulse Ox FiO2 08/22-08/23 98.1 98-115 16 116-131/72-96 86.0-1 08.0 97-99 Patient Weight Weight (lb): 128 Weight (oz): Weight (kg): 58.06 Physical Exam HEENT: normocephalic w/o injury Breasts: deferred Neuro: Exam: alert, oriented x3, normal speech Abdomen: gravid, soft, no abnormal tenderness Baby A: Baby A baseline: 140 bpm Baby A variability: moderate 6-25 bpm Baby A accelerations: 15 X 15 Baby A FHR category: category 1 Baby A notes: had a 3 min decel earlier to my visit and recove red well Diagnosis, Assessment Plan Diagnosis, Assessment Plan Assessment: IUP 35 2/7 WEEKS, IUGR, BOREDERLINE LOW NANCY, ELEVATED SD ON UA DOPPLERS Plan: continue current managmnt, betamethasone a dmin, surveillance, DELIVER FOR NON REASSURING TESTING, otherwise IS WEDNESDAY Electronically Signed by Isaiah Chase MD on 08/23 at 2004 RPT #:[id number] END OF REPORT 2019-08-22 17:12:00-00:00 [facility] ([facility]) OB Antepartum Prog Note REPORT#:[id number] REPORT STATUS: Signed DATE:08/22/19 TIME: 1711 PATIENT: JADE MURILLO UNIT #: [id number] ROOM/BED: [address] : 90 AGE: 29 SEX: F ATTEND: Isaiah Chase MD ADM AUTHOR: Isaiah Chase MD * ALL edits or amendments must be made on the [facility] document * Subjective Subjective Patient reports: Patient reports: Yes normal movement, No no complaints, No abdominal pain, No vaginal bleeding, No leaking fluid, No contractions Comments: SEEN AROUND 8AM Objective Physical Exam HEENT: normocephalic w/o injury Breasts: deferred Neuro: Exam: alert, oriented x3, normal speech Abdomen: gravid, soft, no abnormal tenderness Baby A: Baby A baseline: 140 bpm Baby A variability: moderate 6-25 bpm Baby A accelerations: 15 X 15 Baby A FHR category: category 1 Baby A notes: had a 3 min decel earlier to my visit and recove red well Diagnosis, Assessment Plan Diagnosis, Assessment Plan Assessment: IUP 35 1/7 WEEKS, IUGR, BOREDERLINE LOW NANCY, ELEVATED SD ON UA DOPPLERS Plan: continue current managmnt, betamethasone a dmin, surveillance, DELIVER FOR NON REASSURING TESTING, otherwise IS WEDNESDAY Electronically Signed by Isaiah Chase MD on 08/22 at 1713 RPT #:[id number] END OF REPORT 2019-08-21 12:42:00-00:00 [facility] ([facility]) OB Antepartum Prog Note REPORT#:[id number] REPORT STATUS: Signed DATE:08/21/19 TIME: 124 PATIENT: JADE MURILLO UNIT #: [id number] ROOM/BED: [address] : 90 AGE: 29 SEX: F ATTEND: Isaiah Chase MD ADM AUTHOR: Cuco Cam MD * ALL edits or amendments must be made on the [facility]/computer document * Subjective Subjective Patient reports: Patient reports: Yes normal movement, No abdominal pain, No vaginal bleeding, No leaking fluid, No contractions Comments: c/o pain w saline flush Objective General VS: Last Documented: Result Date Time B/P Mean 86.0 08/21 1308 B/P 117/70 08/21 1308 Pulse 98 08/21 1308 Pulse Ox 82 08/21 1307 Temp 98.7 08/21 0835 Resp 16 08/21 0835 Vital Signs Date Temp Pulse Resp B/P B/P Mean Pulse Ox FiO2 08/20-08/21 98.1-98.7 76-147 16-18 117-120/67-74 86.0-91.0 82-100 Patient Weight Weight (lb): 128 Weight (oz): Weight (kg): 58.06 Physical Exam Abdomen: gravid, soft, no abnormal tenderness Baby A: Baby A baseline: 140 bpm Baby A variability: moderate 6-25 bpm Baby A accelerations: 15 X 15 Baby A FHR category: category 1 Baby A notes: had a 3 min decel earlier to my visit and recove red well Diagnosis, Assessment Plan Diagnosis, Assessment Plan Free Text A P: IUP 35 0/7 WEEKS, , DEEDEE, I UGR, BOREDERLINE LOW NANCY, ELEVATED SD ON UA DOPPLERS DELIVER IN 6 DAYS. pt resist ant to hep lock. i rec it. she will sign ama if she refuses Plan: continue current managmnt, betamethasone a dmin, surveillance, DELIVER FOR NON REASSURING T ESTING, otherwise at 35- 36 weeks, scheduled for per pt Dr liu aware Electronically Signed by Cuco Cam MD on at 1424 RPT #:[id number] END OF REPORT 2019-08-20 12:53:00-00:00 [facility] ([facility]) OB Antepartum Prog Note REPORT#:[id number] REPORT STATUS: Signed DATE:08/20/19 TIME: 1253 PATIENT: JADE MURILLO UNIT #: [id number] [address] AGE: 29 SEX: F ATTEND: Isaiah Chase MD ADM AUTHOR: Vincent Liu MD * ALL edits or amendments must be made on the [facility] document * Subjective Subjective Patient reports: Patient reports: Yes normal movement, No vaginal bleeding, No leaking fluid, No contractions Objective Physical Exam HEENT: normocephalic w/o injury Cardiac: regular rate and rhythm Lungs: clear to auscultation Breasts: deferred Neuro: Exam: alert, oriented x3, normal speech Abdomen: gravid, soft, no abnormal tenderness Baby A: Baby A baseline: 140 bpm Baby A variability: moderate 6-25 bpm Baby A accelerations: 15 X 15 Baby A FHR category: category 1 Baby A notes: had a 3 min decel earlier to my visit and recove red well Diagnosis, Assessment Plan Diagnosis, Assessment Plan Assessment: IUP 34 6/7 WEEKS, IUGR, BOREDERLINE LOW NANCY, ELEVATED SD ON UA DOPPLERS DELIVER IN 6 DAYS Plan: continue current managmnt, betamethasone a dmin, surveillance, DELIVER FOR NON REASSURING TESTING, otherwise at 35- 36 weeks Electronically Signed by Vincent Liu MD on at 1253 RPT #:[id number] END OF REPORT 2019-08-19 11:54:00-00:00 [facility] ([facility]) OB Antepartum Prog Note REPORT#:[id number] REPORT STATUS: Signed DATE:08/19/19 TIME: 1154 PATIENT: JADE MURILLO UNIT #: [id number] ROOM/BED: [facility] : 90 AGE: 29 SEX: F ATTEND: Isaiah Chase MD ADM AUTHOR: Vincent Liu MD * ALL edits or amendments must be made on the [employer] document * Subjective Subjective Patient reports: Patient reports: No vaginal bleeding, No leaking fluid, No contr actions, No normal movement Objective Physical Exam HEENT: normocephalic w/o injury Cardiac: regular rate and rhythm Lungs: clear to auscultation Breasts: deferred Neuro: Exam: alert, oriented x3, normal speech Abdomen: gravid, soft, no abnormal tenderness Baby A: Baby A baseline: 140 bpm Baby A variability: moderate 6-25 bpm Baby A accelerations: 15 X 15 Baby A FHR category: category 1 Baby A notes: had a 3 min decel earlier to my visit and recove red well Diagnosis, Assessment Plan Diagnosis, Assessment Plan Assessment: IUP 34 5/7 WEEKS, IUGR, BOREDERLINE LOW NANCY, ELEVATED SD ON UA DOPPLERS Plan: continue current managmnt, betamethasone a dmin, surveillance, DELIVER FOR NON REASSURING TESTING, otherwise at 35- 36 weeks Electronically Signed by Vincent Liu MD on 10/26 at 1155 RPT #:[id number] END OF REPORT 2019-08-18 18:02:00-00:00 [facility] ([facility]) OB Antepartum Prog Note REPORT#:[id number] REPORT STATUS: Signed DATE:08/18/19 TIME: 1801 PATIENT: JADE MURILLO UNIT #: [id number] ROOM/BED: [address] : 90 AGE: 29 SEX: F ATTEND: Isaiah Chase MD ADM AUTHOR: Isaiah Chase MD * ALL edits or amendments must be made on the [employer] document * Subjective Subjective Patient reports: Patient reports: Yes normal movement, No no complaints, No abdominal pain, No vaginal bleeding, No leaking fluid, No contractions Comments: SEEN AROUND 8AM Objective General VS: Last Documented: Result Date Time B/P Mean 86.0 08/18 959 B/P 113/69 08/18 959 Pulse 73 08/18 959 Pulse Ox 100 08/18 959 Resp 16 08/18 959 Temp 98.2 08/17 1923 Vital Signs Date Temp Pulse Resp B/P B/P Mean Pulse Ox FiO2 10/10-08/18 98.2 73-88 16 104-113/61-69 74.0-86 .0 100 Patient Weight Weight (lb): 128 Weight (oz): Weight (kg): 58.06 Physical Exam HEENT: normocephalic w/o injury Neuro: Exam: alert, oriented x3, normal speech Abdomen: gravid, soft, no abnormal tenderness Baby A: Baby A baseline: 140 bpm Baby A variability: moderate 6-25 bpm Baby A accelerations: 15 X 15 Baby A FHR category: category 1 Diagnosis, Assessment Plan Diagnosis, Assessment Plan Assessment: IUP 34 4/7 WEEKS, IUGR, BOREDERLINE LOW NANCY, ELEVATED SD ON UA DOPPLERS Plan: continue current managmnt, betamethasone a dmin, surveillance, DELIVER FOR NON REASSURING TESTING, otherwise at 35- 36 weeks Electronically Signed by Isaiah Chase MD on 08/18 at 1802 RPT #:[id number] END OF REPORT 2019-08-17 21:38:00-00:00 [facility] ([facility]) OB Antepartum Prog Note REPORT#:[id number] REPORT STATUS: Signed DATE:08/17/19 TIME: 2137 PATIENT: JADE MURILLO UNIT #: [id number] ROOM/BED: [address] : 90 AGE: 29 SEX: F ATTEND: Isaiah Chase MD ADM AUTHOR: Isaiah Chase MD * ALL edits or amendments must be made on the [facility]/computer document * Subjective Subjective Patient reports: Patient reports: Yes normal movement, No no complaints, No abdominal pain, No vaginal bleeding, No leaking fluid, No contractions Comments: seen around 8am Objective General VS: Last Documented: Result Date Time B/P Mean 74.0 08/17 1923 B/P 104/61 08/17 1923 Pulse 88 08/17 1923 Pulse Ox 100 08/17 1008 Temp 98.4 08/17 1008 Resp 17 08/17 1008 Vital Signs Date Temp Pulse Resp B/P B/P Mean Pulse Ox FiO2 08/17 98.4 76-88 17 104-126/61-76 74.0-96.0 100 Patient Weight Weight (lb): 128 Weight (oz): Weight (kg): 58.06 Physical Exam HEENT: normocephalic w/o injury Breasts: deferred Neuro: Exam: alert, oriented x3, normal speech Abdomen: gravid, soft, no abnormal tenderness Baby A: Baby A baseline: 140 bpm Baby A variability: moderate 6-25 bpm Baby A accelerations: 15 X 15 Baby A FHR category: category 1 Baby A notes: had a 3 min decel earlier to my visit and recove red well Diagnosis, Assessment Plan Diagnosis, Assessment Plan Assessment: IUP 34 3/7 WEEKS, IUGR, BOREDERLINE LOW NANCY, ELEVATED SD ON UA DOPPLERS Plan: continue current managmnt, betamethasone a dmin, surveillance, DELIVER FOR NON REASSURING TESTING, otherwise at 35- 36 weeks Electronically Signed by Isaiah Chase MD on 08/17 at 2142 RPT #:[id number] END OF REPORT 2019-08-16 21:42:00-00:00 [facility]) OB Antepartum Prog Note REPORT#:[id number] REPORT STATUS: Signed DATE:08/16/19 TIME: 2141 PATIENT: JADE MURILLO UNIT #: [id number] [address] AGE: 29 SEX: F ATTEND: Isaiah Chase MD ADM AUTHOR: Isaiah Chase MD * ALL edits or amendments must be made on the [facility]/computer document * Subjective Subjective Patient reports: Patient reports: Yes normal movement, No no complaints, No abdominal pain, No vaginal bleeding, No leaking fluid, No contractions Comments: seen around 7am Objective General VS: Last Documented: Result Date Time B/P Mean 82.0 08/16 1952 B/P 113/63 08/16 1952 Pulse 99 08/16 1952 Pulse Ox 100 08/16 749 Resp 16 08/16 0749 Temp 98.1 08/15 2006 Vital Signs Date Temp Pulse Resp B/P B/P Mean Pulse Ox FiO2 08/16 75-99 16 113-127/60-63 82.0-86.0 100 Patient Weight Weight (lb): 128 Weight (oz): Weight (kg): 58.06 Physical Exam HEENT: normocephalic w/o injury Breasts: deferred Neuro: Exam: alert, oriented x3, normal speech Abdomen: gravid, soft, no abnormal tenderness Baby A: Baby A baseline: 140 bpm Baby A variability: moderate 6-25 bpm Baby A accelerations: 15 X 15 Baby A FHR category: category 1 Baby A notes: had a 3 min decel earlier to my visit and recove red well Diagnosis, Assessment Plan Diagnosis, Assessment Plan Free Text A P: ULTRASOUND: CEPH, EFW 1678 GMS AT 9%, NANCY 12 CM, BPP 8/8, UA DOPPLERS WITH ELEVATED SD WITHOUT AEDF Assessment: IUP 34 2/7 WEEKS, IUGR, BOREDERLINE LOW NANCY, ELEVATED SD ON UA DOPPLERS Plan: continue current managmnt, betamethasone a dmin, surveillance, DELIVER FOR NON REASSURING TESTING, otherwise at 35- 36 weeks Electronically Signed by Isaiah Chase MD on 08/16 at 2150 RPT #:[id number] END OF REPORT 2019-08-15 18:36:00-00:00 [facility] ([facility]) OB Antepartum Prog Note REPORT#:[id number] REPORT STATUS: Signed DATE:08/15/19 TIME: 1835 PATIENT: JADE MURILLO UNIT #: [id number] ROOM/BED: [address] : 90 AGE: 29 SEX: F ATTEND: Isaiah Chase MD ADM AUTHOR: Isaiah Chase MD * ALL edits or amendments must be made on the [facility]/computer document * Subjective Subjective Patient reports: Patient reports: Yes normal movement, No no complaints, No abdominal pain, No vaginal bleeding, No leaking fluid, No contractions Comments: seen around 8am Objective General VS: Last Documented: Result Date Time B/P Mean 84.0 08/15 946 B/P 109/69 08/15 946 Pulse 81 08/15 946 Pulse Ox 100 08/15 946 Temp 98.2 08/15 946 Resp 16 08/15 946 Vital Signs Date Temp Pulse Resp B/P B/P Mean Pulse Ox FiO2 08/14-08/15 98.2-98.3 81-84 16 109-121/69-76 84 .0-93.0 100 Patient Weight Weight (lb): 128 Weight (oz): Weight (kg): 58.06 Physical Exam HEENT: normocephalic w/o injury Breasts: deferred Neuro: Exam: alert, oriented x3, normal speech Abdomen: gravid, soft, no abnormal tenderness Baby A: Baby A baseline: 140 bpm Baby A variability: moderate 6-25 bpm Baby A accelerations: 15 X 15 Baby A FHR category: category 1 Diagnosis, Assessment Plan Diagnosis, Assessment Plan Assessment: IUP 34 1/7 WEEKS, IUGR, BOREDERLINE LOW NANCY, ELEVATED SD ON UA DOPPLERS, no major decels MCA DOPPLERS WITH CERE BROPLACENTAL REPERFUSION Plan: continue current managmnt, betamethasone a dmin, surveillance, DELIVER FOR NON REASSURING TESTING, oterwise at 35- 36 weeks Electronically Signed by Isaiah Chase MD on 08/15 at 1837 RPT #:[id number] END OF REPORT 2019-08-14 17:46:00-00:00 [facility] ([facility]) OB Antepartum Prog Note REPORT#:[id number] REPORT STATUS: Signed DATE:08/14/19 TIME: 1746 PATIENT: JADE MURILLO UNIT #: [id number] ROOM/BED: [address] : 90 AGE: 29 SEX: F ATTEND: Isaiah Chase MD ADM AUTHOR: Isaiah Chase MD * ALL edits or amendments must be made on the [facility] document * Subjective Subjective Patient reports: Patient reports: Yes normal movement, No no complaints, No abdominal pain, No vaginal bleeding, No leaking fluid, No contractions Objective Physical Exam HEENT: normocephalic w/o injury Lungs: clear to auscultation Neuro: Exam: alert, oriented x3, normal speech Abdomen: gravid, soft, no abnormal tenderness Baby A: Baby A baseline: 140 bpm Baby A variability: moderate 6-25 bpm Baby A accelerations: 15 X 15 Baby A FHR category: category 1 Baby A notes: had a 4 min decel earlier to my visit and recove red well Diagnosis, Assessment Plan Diagnosis, Assessment Plan Assessment: IUP 34 0/7 WEEKS, IUGR, BOREDERLINE LOW NANCY, ELEVATED SD ON UA DOPPLERS, decels better today MCADOPPLERS WITH C EREBROPLACENTAL REPERFUSION Plan: continue current managmnt, betamethasone a dmin, surveillance, DELIVER FOR NON REASSURING TESTING, oterwise at 35 weeks Electronically Signed by Isaiah Chase MD on 08/14 at 1746 RPT #:[id number] END OF REPORT 2019-08-13 11:12:00-00:00 [facility] ([facility]) OB Antepartum Prog Note REPORT#:[id number] REPORT STATUS: Signed DATE:08/13/19 TIME: 1112 PATIENT: JADE MURILLO UNIT #: [id number] ROOM/BED: [address] : 90 AGE: 29 SEX: F ATTEND: Isaiah Chase MD ADM AUTHOR: Vincent Liu MD * ALL edits or amendments must be made on the [facility]/computer document * Subjective Subjective Patient reports: Patient reports: Yes normal movement, No vaginal bleeding, No leaking fluid, No contractions Objective Physical Exam HEENT: normocephalic w/o injury Cardiac: regular rate and rhythm Lungs: clear to auscultation Breasts: deferred Neuro: Exam: alert, oriented x3, normal speech Abdomen: gravid, soft, no abnormal tenderness Baby A: Baby A baseline: 140 bpm Baby A variability: moderate 6-25 bpm Baby A accelerations: 15 X 15 Baby A FHR category: category 1 Baby A notes: had a 4 min decel earlier to my visit and recove red well Diagnosis, Assessment Plan Diagnosis, Assessment Plan Assessment: IUP 33 6/7 WEEKS, IUGR, BOREDERLINE LOW NANCY, ELEVATED SD ON UA DOPPLERS, decels better today MCADOPPLERS WITH C EREBROPLACENTAL REPERFUSION Plan: continue current managmnt, betamethasone a dmin, surveillance, DELIVER FOR NON REASSURING TESTING, oterwise at 35 weeks Electronically Signed by Vincent Liu MD on 04/26 at 1112 RPT #:[id number] END OF REPORT 2019 12:38:00-00:00 [facility] ([facility]) OB Antepartum Prog Note REPORT#:[id number] REPORT STATUS: Signed DATE:08/12/19 TIME: 1238 PATIENT: JADE MURILLO UNIT #: [id number] ROOM/BED: [address] : 90 AGE: 29 SEX: F ATTEND: Isaiah Chase MD ADM AUTHOR: Vincent Liu MD * ALL edits or amendments must be made on the [facility] document * Subjective Subjective Patient reports: Patient reports: Yes normal movement, No vaginal bleeding, No leaking fluid, No contractions Objective Physical Exam HEENT: normocephalic w/o injury Cardiac: regular rate and rhythm Lungs: clear to auscultation Breasts: deferred Neuro: Exam: alert, oriented x3, normal speech Abdomen: gravid, soft, no abnormal tenderness Baby A: Baby A baseline: 140 bpm Baby A variability: moderate 6-25 bpm Baby A accelerations: 15 X 15 Baby A FHR category: category 1 Baby A notes: had a 4 min decel earlier to my visit and recove red well Diagnosis, Assessment Plan Diagnosis, Assessment Plan Assessment: IUP 33 5/7 WEEKS, IUGR, BOREDERLINE LOW NANCY, ELEVATED SD ON UA DOPPLERS, decels better today MCADOPPLERS WITH C EREBROPLACENTAL REPERFUSION Plan: continue current managmnt, betamethasone a dmin, surveillance, DELIVER FOR NON REASSURING TESTING, oterwise at 35 weeks Electronically Signed by Vincent Liu MD on 03/26 at 1239 RPT #:[id number] END OF REPORT 2019-08-11 21:53:00-00:00 [facility] ([facility]) OB Antepartum Prog Note REPORT#:[id number] REPORT STATUS: Signed DATE:08/11/19 TIME: 2152 PATIENT: JADE MURILLO UNIT #: [id number] ROOM/BED: [address] : 90 AGE: 28 SEX: F ATTEND: Isaiah Chase MD ADM AUTHOR: Isaiah Chase MD * ALL edits or amendments must be made on the [facility]/computer document * Subjective Subjective Patient reports: Patient reports: Yes normal movement, No no complaints, No abdominal pain, No vaginal bleeding, No leaking fluid, No contractions Comments: seen around 8am Objective General VS: Last Documented: Result Date Time B/P Mean 88.0 08/11 1957 B/P 121/71 08/11 1957 Pulse 98 08/11 1957 Temp 98.5 08/11 08 Pulse Ox 100 08/11 0720 Resp 18 08/10 1930 Vital Signs Date Temp Pulse Resp B/P B/P Mean Pulse Ox FiO2 08/11 98.5 81-98 109-121/71-73 86.0-88.0 100 Patient Weight Weight (lb): 128 Weight (oz): Weight (kg): 58.06 Physical Exam HEENT: normocephalic w/o injury Breasts: deferred Neuro: Exam: alert, oriented x3, normal speech Abdomen: gravid, soft, no abnormal tenderness Baby A: Baby A baseline: 140 bpm Baby A variability: moderate 6-25 bpm Baby A accelerations: 15 X 15 Baby A FHR category: category 1 Baby A notes: had a 4 min decel earlier to my visit and recove red well Diagnosis, Assessment Plan Diagnosis, Assessment Plan Free Text A P: ULTRASOUND: CEPHALIC, EFW 1619 GMS AT 9%, NANCY 8 CM, BPP 8/8, POST PLAC, UA DOPPLERS WITH ELEVATED SD AT 4.7, MCA DOPPLERS C/W CEREBEROPLACENTAL REPERFUSION Assessment: IUP 33 4/7 WEEKS, IUGR, BOREDERLINE LOW NANCY, ELEVATED SD ON UA DOPPLERS, decels off and on, MCADOPPLERS WITH CE REBROPLACENTAL REPERFUSION Plan: continue current managmnt, betamethasone a dmin, surveillance, DELIVER FOR NON REASSURING TESTING, oterwise at 35 weeks Electronically Signed by Isaiah Chase MD on 08/11 at 2157 RPT #:[id number] END OF REPORT 2019-08-10 20:47:00-00:00 [facility] OB Antepartum Prog Note REPORT#:[id number] REPORT STATUS: Signed DATE:08/10/19 TIME: 2046 PATIENT: JADE MURILLO UNIT #: [id number] ROOM/BED: [address] : 90 AGE: 28 SEX: F ATTEND: Isaiah Chase MD ADM AUTHOR: Isaiah Chase MD * ALL edits or amendments must be made on the [facility] document * Subjective Subjective Patient reports: Patient reports: Yes normal movement, No no complaints, No abdominal pain, No vaginal bleeding, No leaking fluid, No contractions Comments: seen around 6pm Objective General VS: Last Documented: Result Date Time B/P Mean 90.0 08/10 1930 B/P 120/72 08/10 1930 Pulse 86 08/10 193 Temp 98.5 08/10 0928 Resp 18 08/10 09 Pulse Ox 100 08/10 0145 Vital Signs Date Temp Pulse Resp B/P B/P Mean Pulse Ox FiO2 08/10 98.5 86-92 18 120-124/65-72 88.0-90.0 100 Patient Weight Weight (lb): 128 Weight (oz): Weight (kg): 58.06 Physical Exam HEENT: normocephalic w/o injury Breasts: deferred Neuro: Exam: alert, oriented x3, normal speech Abdomen: gravid, soft, no abnormal tenderness Baby A: Baby A baseline: 140 bpm Baby A variability: moderate 6-25 bpm Baby A accelerations: 15 X 15 Baby A FHR category: category 1 Baby A notes: had 2 ramona decels that recovered quickly Diagnosis, Assessment Plan Diagnosis, Assessment Plan Assessment: IUP 33 3/7 WEEKS, SEVERE IUG R, BOREDERLINE LOW NANCY, ELEVATED SD ON UA DOPPLERS Plan: continue current managmnt, betamethasone a dmin, surveillance, DELIVER FOR NON REASSURING TESTING Electronically Signed by Isaiah Chase MD on 08/10 at 2048 RPT #:[id number] END OF REPORT 2019-08-09 20:17:00-00:00 [facility] ([facility]) OB Antepartum Prog Note REPORT#:[id number] REPORT STATUS: Signed DATE:08/09/19 TIME: 2016 PATIENT: JADE MURILLO UNIT #: [id number] ROOM/BED: [address] : 90 AGE: 28 SEX: F ATTEND: Isaiah Chase MD ADM AUTHOR: Isaiah Chase MD * ALL edits or amendments must be made on the [facility] document * Subjective Subjective Patient reports: Patient reports: Yes normal movement, No no complaints, No abdominal pain, No vaginal bleeding, No leaking fluid Comments: seen around 8am Objective Physical Exam HEENT: normocephalic w/o injury Breasts: deferred Neuro: Exam: alert, oriented x3, normal speech Abdomen: gravid, soft, no abnormal tenderness Baby A: Baby A baseline: 140 bpm Baby A variability: moderate 6-25 bpm Baby A accelerations: 15 X 15 Baby A FHR category: category 1 Baby A notes: had 2 ramona decels that recovered quickly Diagnosis, Assessment Plan Diagnosis, Assessment Plan Assessment: IUP 33 2/7 WEEKS, SEVERE IUG R, BOREDERLINE LOW NANCY, ELEVATED SD ON UA DOPPLERS Plan: continue current managmnt, betamethasone a dmin, surveillance, DELIVER FOR NON REASSURING TESTING Electronically Signed by Isaiah Chase MD on 08/09 at 2017 RPT #:[id number] END OF REPORT 2019-08-08 13:06:00-00:00 [facility] ([facility]) OB Antepartum Prog Note REPORT#:[id number] REPORT STATUS: Signed DATE:08/08/19 TIME: 1306 PATIENT: JADE MURILLO UNIT #: [id number] [address] AGE: 28 SEX: F ATTEND: Isaiah Chase MD ADM AUTHOR: Isaiah Chase MD * ALL edits or amendments must be made on the [employer] Technologies/computer document * Subjective Subjective Patient reports: Patient reports: Yes normal movement, No no complaints, No abdominal pain, No vaginal bleeding, No leaking fluid, No contractions Comments: seen around 8am Objective General VS: Last Documented: Result Date Time B/P Mean 82.0 08/08 1002 B/P 118/59 08/08 1002 Pulse 95 08/08 1002 Pulse Ox 99 08/08 0504 Temp 98.4 08/07 1951 Resp 18 08/07 1951 Vital Signs Date Temp Pulse Resp B/P B/P Mean Pulse Ox FiO2 08/07-08/08 98.4 85-95 18 110-129/59-71 81.0-92 .0 99-100 Patient Weight Weight (lb): 128 Weight (oz): Weight (kg): 58.06 Physical Exam HEENT: normocephalic w/o injury Neuro: Exam: alert, oriented x3, normal speech Abdomen: gravid, soft, no abnormal tenderness Baby A: Baby A baseline: 140 bpm Baby A variability: moderate 6-25 bpm Baby A accelerations: 15 X 15 Baby A FHR category: category 1 Diagnosis, Assessment Plan Diagnosis, Assessment Plan Assessment: IUP 33 1/7 WEEKS, SEVERE IUG R, BOREDERLINE LOW NANCY, ELEVATED SD ON UA DOPPLERS Plan: continue current managmnt, betamethasone a dmin, surveillance, DELIVER FOR NON REASSURING TESTING Electronically Signed by Isaiah Chase MD on 08/08 at 1308 RPT #:[id number] END OF REPORT 2019-08-07 20:27:00-00:00 [facility] ([facility]) OB Antepartum Prog Note REPORT#:[id number] REPORT STATUS: Signed DATE:08/07/19 TIME: 2026 PATIENT: JADE MURILLO UNIT #: [id number] [address] AGE: 28 SEX: F ATTEND: Isaiah Chase MD ADM AUTHOR: Isaiah Chase MD * ALL edits or amendments must be made on the [employer] document * Subjective Subjective Patient reports: Patient reports: Yes normal movement, No no complaints, No abdominal pain, No vaginal bleeding, No leaking fluid, No contractions Comments: SEEN AROUND 8AM Objective Physical Exam HEENT: normocephalic w/o injury Neuro: Exam: alert, oriented x3, normal speech Abdomen: gravid, soft, no abnormal tenderness Baby A: Baby A baseline: 140 bpm Baby A variability: moderate 6-25 bpm Baby A accelerations: 15 X 15 Baby A FHR category: category 1 Baby A notes: had 2 ramona decels that recovered quickly Diagnosis, Assessment Plan Diagnosis, Assessment Plan Assessment: IUP 33 0/7 WEEKS, SEVERE IUG R, BOREDERLINE LOW NANCY, ELEVATED SD ON UA DOPPLERS Plan: continue current managmnt, betamethasone a dmin, surveillance, DELIVER FOR NON REASSURING TESTING Electronically Signed by Isaiah Chase MD on 08/07 at 2028 RPT #:[id number] END OF REPORT 2019-08-06 13:37:00-00:00 [facility] ([facility]) OB Antepartum Prog Note REPORT#:[id number] REPORT STATUS: Signed DATE:08/06/19 TIME: 1337 PATIENT: JADE MURILLO UNIT #: [id number] ROOM/BED: [address] : 90 AGE: 28 SEX: F ATTEND: Isaiah Chase MD ADM AUTHOR: Isaiah Chase MD * ALL edits or amendments must be made on the [employer] document * Subjective Subjective Patient reports: Patient reports: Yes normal movement, No no complaints, No abdominal pain, No vaginal bleeding, No leaking fluid, No contractions Objective General VS: Last Documented: Result Date Time Temp 97.8 08/06 903 B/P Mean 73.0 08/06 09 B/P 101/60 08/06 903 Pulse 80 09/29 0903 Pulse Ox 100 08/06 0229 Resp 18 08/05 0915 Vital Signs Date Temp Pulse Resp B/P B/P Mean Pulse Ox FiO2 08/05-08/06 97.8-98.5 22-100 101-111/60-65 73.0 -83.0 86-100 Patient Weight Weight (lb): 128 Weight (oz): Weight (kg): 58.06 Physical Exam HEENT: normocephalic w/o injury Neuro: Exam: alert, oriented x3, normal speech Abdomen: gravid, soft, no abnormal tenderness Baby A: Baby A baseline: 140 bpm Baby A variability: moderate 6-25 bpm Baby A accelerations: 15 X 15 Baby A FHR category: category 1 Baby A notes: had 2 ramona decels that recovered quickly Diagnosis, Assessment Plan Diagnosis, Assessment Plan Assessment: IUP 32 6/7 WEEKS, SEVERE IUG R, BOREDERLINE LOW NANCY, ELEVATED SD ON UA DOPPLERS Plan: continue current managmnt, betamethasone a dmin, surveillance, DELIVER FOR NON REASSURING TESTING Electronically Signed by Isaiah Chase MD on 08/06 at 1338 RPT #:[id number] END OF REPORT 2019-08-05 21:42:00-00:00 [facility] ([facility]) OB Antepartum Prog Note REPORT#:[id number] REPORT STATUS: Signed DATE:08/05/19 TIME: 2141 PATIENT: JADE MURILLO UNIT #: [id number] ROOM/BED: [address] : 90 AGE: 28 SEX: F ATTEND: Isaiah Chase MD ADM AUTHOR: Isaiah Chase MD * ALL edits or amendments must be made on the [facility] document * Subjective Subjective Patient reports: Patient reports: Yes normal movement, No no complaints, No abdominal pain, No vaginal bleeding, No leaking fluid, No contractions Comments: SEEN AROUND 4PM Objective General VS: Last Documented: Result Date Time Pulse Ox 86 08/05 1429 Pulse 22 08/05 1429 Temp 97.7 08/05 0915 Resp 08/0515 B/P Mean 84.0 09/28 0915 B/P 111/72 08/05 0915 Vital Signs Date Temp Pulse Resp B/P B/P Mean Pulse Ox FiO2 08/04-08/05 97.7 22-83 18 111/ 84.0 86-100 Patient Weight Weight (lb): 128 Weight (oz): Weight (kg): 58.06 Physical Exam HEENT: normocephalic w/o injury Neuro: Exam: alert, oriented x3, normal speech Abdomen: gravid, soft, no abnormal tenderness Baby A: Baby A baseline: 140 bpm Baby A variability: moderate 6-25 bpm Baby A accelerations: 15 X 15 Baby A FHR category: category 1 Diagnosis, Assessment Plan Diagnosis, Assessment Plan Assessment: IUP 32 5/7 WEEKS, SEVERE IUG R, BOREDERLINE LOW NANCY, ELEVATED SD ON UA DOPPLERS Plan: continue current managmnt, betamethasone a dmin, surveillance, DELIVER FOR NON REASSURING TESTING Electronically Signed by Isaiah Chase MD on 08/05 at 2143 RPT #:[id number] END OF REPORT 2019-08-04 19:35:00-00:00 [facility] ([facility]) Clinical Note REPORT#:[id number] REPORT STATUS: Signed DATE:08/04/19 TIME: 1934 PATIENT: JADE MURILLO UNIT #: [id number] ROOM/BED: [address] : 90 AGE: 28 SEX: F ATTEND: Isaiah Chase MD ADM AUTHOR: Abi Bangura MD * ALL edits or amendments must be made on the [facility]/computer document * Clinical Note Note: hospitalist to evaluate FHTs and check pt PT 28 yo at 32 4/7 w eeks in hospital for IUGR, s/p 2 doses of Celestone, lasst night had a few ctxn, but voided a nd went away. Earlier today baby had 2 decelerations about 2 min each, followed by FHTs 120-130s cat 1 strip, then about 6pm, pt had 2 ctxn, cameron th with late decelerations, but again cat [address] Chase called, p t now NPO and on continuous monitoring. When I went into the room, the pt had gotten up to void. Pt reports less FM (though +), -Vb, -ROM, ?CTXN- -has pain in backand lower abdomen that comes and goes, and hurts more when she moves. She denies dysuria, denies flank pain. POb 1 sAB with D C, 1 at 37 weeks PMHx negative PSHx D C, GB BP 124/74 FHTs as above TOCO few ctxn as above -CVAT +SPT, no rebound, no guard SVE closed/40/mid/soft, high A/P 32 3/7 weeks, s/p Celestone, baby IUGR, pt N PO, continuous monitoring d/w Dr. Chase, will also check UA and cx Electronically Signed by Abi Bangura MD on at 1942 RPT #:[id number] END OF REPORT 2019-08-04 17:09:00-00:00 [facility] ([facility]) OB Antepartum Prog Note REPORT#:[id number] REPORT STATUS: Signed DATE:08/04/19 TIME: 1709 PATIENT: JADE MURILLO UNIT #: [id number] ROOM/BED: [address] : 90 AGE: 28 SEX: F ATTEND: Isaiah Chase MD ADM AUTHOR: Isaiah Chase MD * ALL edits or amendments must be made on the [facility] document * Subjective Subjective Patient reports: Patient reports: Yes normal movement, No no complaints, No abdominal pain, No vaginal bleeding, No leaking fluid, No contractions Comments: seen around 8am Objective General VS: Last Documented: Result Date Time Pulse Ox 100 08/04 1601 Pulse 96 08/04 1601 B/P Mean 93.0 08/04 1349 B/P 124/74 08/04 1349 Resp 16 08/03 2052 Temp 98.2 08/03 2052 Vital Signs Date Temp Pulse Resp B/P B/P Mean Pulse Ox FiO 2 08/03-08/04 98.2 93-109 16 124-127/74-76 93.0-9 5.0 91-100 Patient Weight Weight (lb): 128 Weight (oz): Weight (kg): 58.06 Physical Exam HEENT: normocephalic w/o injury Lungs: clear to auscultation Neuro: Exam: alert, oriented x3, normal speech Abdomen: gravid, soft, no abnormal tenderness Diagnosis, Assessment Plan Diagnosis, Assessment Plan Free Text A P: ULTRASOUND: CEPHALIC, BPP 8/8, UA DOPPLERS WITH ELEVATED SD RATIO AT 4.13, NL MCA DOPPLERS, NANCY 7.9 CM Assessment: IUP 32 4/7 WEEKS, SEVERE IUG R, BOREDERLINE LOW NANCY, ELEVATED SD ON UA DOPPLERS Plan: continue current managmnt, betamethasone a dmin, surveillance, DELIVER FOR NON REASSURING TESTING Electronically Signed by Isaiah Chase MD on 08/04 at 1713 RPT #:[id number] END OF REPORT 2019-08-03 20:46:00-00:00 [facility] ([facility]) OB Admission / H P REPORT#:[id number] REPORT STATUS: Signed DATE:08/03/19 TIME: 2045 PATIENT: JADE MURILLO UNIT #: [id number] ROOM/BED: [address] : 90 AGE: 28 SEX: F ATTEND: Isaiah Chase MD ADM AUTHOR: Isaiah Chase MD * ALL edits or amendments must be made on the el [employer]/computer document * OB Admission H P Hx Chief complaint: SMALL BABY HPI: 28 y old at 32 3/7 week s who was admitted due to severe IUGR and worsening of elevated SD ratio at Dr Fernández's office. On 08/03 EFW was 1244 gms at 9% with eleavted SD. Yesterday, at Dr Fernández's office, EFW was down to 3% and SD ratio went up to 4.5 (3.3 on 08/03). POHX: SAB X 1 and x 1 at term Past medical history: denies PMH Past surgical history: denies PSH Social history: no alcohol use, no tobacco use, no drug use Medications: Home Medications: SCOPOLAMINE (TRANSDERM-SCOP 1.5 MG) 1 PATCH MARTIN SDERM ONCE Allergies Coded Allergies: No Known Allergies (08/02/19) Review of Systems Constitutional: Denies: chills. Skin: Denies: abrasion. Allergy/Immun: Denies: allergic reaction. Eyes: Denies: redness. ENT: Denies: ear drainage. Respiratory: Denies: NORIEGA (dyspnea on exertion). Cardiovascular: Denies: chest pain. GI: Denies: abdominal pain. : Denies: dysuria. Musculoskeletal: Denies: arthritis. Objective General VS: Last Documented: Result Date Time B/P Mean 95.0 08/03 2052 B/P 127/76 08/03 2052 Pulse 93 08/03 2052 Pulse Ox 100 08/03 141 Temp 98.3 08/03 1412 Resp 18 08/03 0948 Vital Signs Date Temp Pulse Resp B/P B/P Mean Pulse Ox FiO2 08/02-08/03 97.8-98.3 77-96 16-18 121-128/69-76 89.0-95.0 100 Patient Weight Weight (lb): 128 Weight (oz): Weight (kg): 58.06 Physical Exam HEENT: normocephalic w/o injury Cardiac: regular rate and rhythm Lungs: clear to auscultation Breasts: deferred Neuro: Exam: alert, oriented x3, normal speech Abdomen: gravid, soft, no abnormal tenderness Diagnosis, Assessment Plan Diagnosis, Assessment Plan Assessment/Impression: IUP 32 3/7 WEEKS with worsening IUGR and elevated SD on UA Dopplers, at risk for demise Plan: admit to inpatient, betamethasone admin, f etal surveillance, possible delivery at 34 weeks, inpatient management Electronically Signed by Isaiah Chase MD on 08/03 at 2114 RPT #:[id number] END OF REPORT 2019-08-03 17:03:00-00:00 [facility]) DT Consult Note REPORT#:[id number] REPORT STATUS: Signed DATE:08/03/19 TIME: 1703 PATIENT: JADE MURILLO UNIT #: [id number] ROOM[facility]BED: [facility] : 90 AGE: 28 SEX: F ATTEND: Isaiah Chase MD ADM AUTHOR: Ko Velasco DO * ALL edits or amendments must be made on the el [employer]/computer document * CONSULT NOTE Note: Neonatology Consult Note I was called to the bedside to discuss the expec tation and complications of prematurity at 32 weeks' gestation age. We discussed the events surrounding the delivery and that the resuscitation team would be present for delivery . The infant will be admitted to either the Advanced Care or Intermediate Care NICU, level of care determined if significant respiratory distress present. The complications of prematurity and treatments for a 32 week inf ant discussed with the family includes but not limited to: - respiratory distress syndr ome due to immature lungs (and need for surfactant, invasive or non- invasive mechanical ventilation , and supplemental oxygen), - risk of infection (and need for IV antibiotic therapy), - premature feeding pattern (and need for gavage feedings, TPN), - jaundice (and need for phototherapy), - temperature instability (a nd need for thermoregulatory support via incubator), - slightly increased risk for NDI at late preter m delivery compared to term. We also discussed the NICU visitation policy, ex pected length of stay and discharge criteria. Question s were answered. Our group appreciates the opportunity to participate in the care of this f amily and baby. Please don't hesitate to call us back for more questions and discussions, or even at a later gestation should this persist so we ca n revisit this consult. Thank you. The time spent on this consultation was 40 minutes, of which more than 50% was spent directly speaking with the mother. Signature: Ko Velasco DO at 1704 RPT #:[id number] END OF REPORT
--- NOTE | 2023-06-10 14:38 | RAD REPORT ---
EXAM DESCRIPTION: RAD - Shoulder Right 2 View - 06/10/2023 2:24 pm CLINICAL HISTORY: PAIN COMPARISON: <Comparisons> FINDINGS: No fracture or dislocation.
--- NOTE | 2023-06-10 15:21 | EDPHYS ---
Physician Documentation [facility] Name: Jade Murillo Age: 32 yrs Sex: Female : 1990 Arrival Date: 06/10/2023 Time: 13:53 Bed IW1 Private MD: ED Physician Hiren Hatfield HPI: 06/10 14:38 This 32 yrs old Black Female presents to ER via Ambulatory with complaints of Arm rn Injury. 14:38 The patient or guardian complains of pain. The complaints affect the anterior aspect of rn right shoulder. Onset: The symptoms/episode began/occurred 2 week(s) ago. Modifying factors: The symptoms are alleviated by nothing. the symptoms are aggravated by movement, lifting weight. Severity of symptoms: At their worst the symptoms were mild, in the emergency department the symptoms are unchanged. The patient has not experienced similar symptoms in the past. The patient has not recently seen a physician. Pt reports right shoulder pain after moving boxes at work, began 2 weeks ago, no new injury, getting better but has not resolved so came in. Worse with lifting and rotation. . Historical: - Allergies: 14:13 No Known Allergies; me1 - Home Meds: 14:13 None [Active]; me1 - PSHx: 14:13 section; Cholecystectomy; D\T\C; me1 - Immunization history:: Adult Immunizations up to date. - Social history:: Smoking status: Patient denies any tobacco usage or history of. - Family history:: not pertinent. - Hospitalizations: : No recent hospitalization is reported. ROS: 14:38 Constitutional: Negative for fever, chills, and weight loss, MS/Extremity: + right rn shoulder pain Exam: 14:38 Constitutional: This is a well developed, well nourished patient who is awake, alert, rn and in no acute distress. Walks to room with normal arm sway and no distress MS/ Extremity: Pulses equal, no cyanosis. Neurovascular intact. Full, normal range of motion. Equal circumference. Mild pain with elevation of right arm above horizontal. Vital Signs: 14:15 BP 120 / 83; Pulse 75; Resp 16; Temp 97.7(O); Pulse Ox 100% on R/A; Weight 68.04 kg; me1 Height 5 ft. 4 in. ; Pain 4/10; 14:15 Body Mass Index 25.75 (68.04 kg, 162.56 cm) me1 14:15 Pain Scale: Adult me1 MDM: 13:57 Patient medically screened. rn 15:19 Differential diagnosis: tendonitis, strain, sprain. Data reviewed: vital signs, nurses rn notes, radiologic studies, plain films, and as a result, I will discharge patient. Counseling: I had a detailed discussion with the patient and/or guardian regarding: the historical points, exam findings, and any diagnostic results supporting the discharge/admit diagnosis, radiology results, the need for outpatient follow up, to return to the emergency department if symptoms worsen or persist or if there are any questions or concerns that arise at home. Special discussion: I discussed with the patient/guardian in detail that at this point there is no indication for admission to the hospital. It is understood, however, that if the symptoms persist or worsen the patient needs to return immediately for re-evaluation. ED course: NO acute findings on xray right shoulder, will dc home as strain with rest. 06/10 14:10 Order name: XRAY Shoulder RIGHT 2 view; Complete Time: 14:46 rn Administered Medications: No medications were administered Disposition Summary: 06/10/23 15:20 Discharge Ordered Location: Home rn Problem: new rn Symptoms: have improved rn Condition: Stable rn Diagnosis - Strain of muscle(s) and tendon(s) of the rotator cuff of right shoulder rn Followup: rn - With: Private Physician - When: As needed - Reason: Recheck today's complaints, Re-evaluation by your physician Discharge Instructions: - Discharge Summary Sheet rn - Muscle Strain rn - Shoulder Sprain rn Forms: - Medication Reconciliation Form rn - Thank You Letter rn - 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
--- NOTE | 2023-06-10 15:21 | ER ---
Nurse's Notes [facility] Name: Jade Murillo Age: 32 yrs Sex: Female : 1990 Arrival Date: 06/10/2023 Time: 13:53 Bed IW1 Private MD: Diagnosis: Strain of muscle(s) and tendon(s) of the rotator cuff of right shoulder Presentation: 06/10 14:09 Chief complaint: Patient states: Right Arm Pain. Coronavirus screen: Vaccine status: me1 Patient reports being unvaccinated. At this time, the client does not indicate any symptoms associated with coronavirus-19. Ebola Screen: No symptoms or risks identified at this time. Initial Sepsis Screen: Does the patient meet any 2 criteria? No. Patient's initial sepsis screen is negative. Does the patient have a suspected source of infection? No. Patient's initial sepsis screen is negative. Risk Assessment: Do you want to hurt yourself or someone else? Patient reports no desire to harm self or others. Onset of symptoms is unknown. 14:09 Method Of Arrival: Ambulatory [facility] 14:09 Acuity: KEVYN 4 nd1 Triage Assessment: 14:13 General: Appears comfortable, well groomed, well developed, well nourished, Behavior is nd1 calm, cooperative, appropriate for age. Pain: Complains of pain in right arm Pain does not radiate. Pain currently is 4 out of 10 on a pain scale. Quality of pain is described as tender, Pain began 2-3 weeks ago. Neuro: Level of Consciousness is awake, alert, obeys commands, Oriented to person, place, time, situation, Appropriate for age. Cardiovascular: Capillary refill < 3 seconds Patient's skin is warm and dry. Respiratory: Respiratory effort is even, unlabored, Respiratory pattern is regular, symmetrical. Musculoskeletal: no visible deformity to right arm. Historical: - Allergies: 14:13 No Known Allergies; me1 - Home Meds: 14:13 None [Active]; me1 - PSHx: 14:13 section; Cholecystectomy; D\T\C; me1 - Immunization history:: Adult Immunizations up to date. - Social history:: Smoking status: Patient denies any tobacco usage or history of. - Family history:: not pertinent. - Hospitalizations: : No recent hospitalization is reported. Vital Signs: 14:15 BP 120 / 83; Pulse 75; Resp 16; Temp 97.7(O); Pulse Ox 100% on R/A; Weight 68.04 kg; me1 Height 5 ft. 4 in. ; Pain 4/10; 14:15 Body Mass Index 25.75 (68.04 kg, 162.56 cm) me1 14:15 Pain Scale: Adult nd1 ED Course: 13:54 Patient arrived in ED. rg4 13:57 Hiren Hatfield MD is Attending Physician. rn 14:13 Triage completed. me1 14:15 Arm band placed on Patient placed in waiting room. me1 14:26 XRAY Shoulder RIGHT 2 view In Process Unspecified. EDMS 15:33 No provider procedures requiring assistance completed. Patient did not have IV access ss during this emergency room visit. Administered Medications: No medications were administered Outcome: 15:20 Discharge ordered by . rn 15:33 Discharged to home ambulatory. ss 15:33 Condition: good 15:33 Discharge instructions given to patient, Instructed on discharge instructions, follow up and referral plans. Demonstrated understanding of instructions, follow-up care. 15:33 Patient left the ED. ss Signatures: Dispatcher [employer] EDMS Hiren Hatfield MD MD rn Blanchard, Shelby, RN RN Keara Forde 4 Valeri Acharya RN RN nd1
[2023-06-10 15:43] VITALS: BP 120/83; TEMP 97.7; O2SAT 100
== END 2023-06-10 15:33 | disposition home or self-care (01) ==
LOC: ER 13:53
DX: S46.011A Strain of muscle(s) and tendon(s) of the rotator cuff of right shoulder, initial encounter (principal)
CPT/HCPCS: 99282

== ENCOUNTER 2023-06-20 17:08 | Emergency (ER) | payer SELFPAY ==
--- OUTSIDE RECORDS SUMMARY | 2023-06-20 17:15 | XMS REPORT | Continuity of Care Document ---
:1990 Author Organization [facility] t Address [address] [facility] [place] [address] Care Team Providers Name Role Phone Clarice Smith NP Primary Care Physician CLARICE SMITH Attending Clinician Unavailable CLARICE SMITH Attending Clinician Unavailable 2, [facility] Attending Clinician Unavailable Romy Attending Clinician Unavailable PRASHANTH Attending Clinician Unavailable Romy Admitting Clinician Unavailable PRASHANTH Admitting Clinician Unavailable Payers Payer Name Policy Type Policy Number Effective Date Expiration Date Haley esqueda [employer] [id number] 2022 CHOICE [place] STAR 00:00:00 [employer] [id number] 2022 2023 CHOICE (MEDICAID 00:00:00 00:00:00 REPLACEMENT - [place] [id number] WOMEN'S HEALTH PROGRAM [place] [id number] 2019 [place] 00:00:00 WOMEN RELIANCE STANDARD [id number] - [employer] LIMITED PLAN - MULTIPLAN [...] kari 00 Group Gynecologi Gynecologi Problem Active 2019-0 M [facility] c c 9-28 da examinatio Examinatio 00:00: Me dical n n 00 Group Venereal Venereal Problem Active [place] disease Disease 9-28 da screening Screening 00:00: Medi pam 00 Group Intermenst Intermenst Problem Active 2019-0 [place] rual rual 6-16 da bleeding - Bleeding - 00:00: Me dical irregular Irregular 00 Grou p Initiation Initiation Problem Active 2019-0 M [facility] of of 6-16 da transderma Transderma 00:00: Me dical l l 00 Group contracept Contracept ion done ion Done Problem Active 2019- M [facility] care Care 1-12 da 00:00: [...] rs active active ity of problems problems [facility] Allergies, Adverse Reactions, Alerts Allergy Allergy Status Severity Reaction(s) Onset Inactive Treating Comm ents Source Name Type Date Date Clinician No Known DA Active U [facility] Allergie 9-25 [facility] [place] NO KNOWN Drug Active Univers ALLERGIE Class ity of S [facility] Social History Social Habit Start Date Stop Date Quantity Comments Source Exposure to 2022-11-10 2022-11-20 Not sure [facility] SARS-CoV-2 (event) 00:00:00 13:38:00 Medica l Branch Sex Assigned At [birth year] [facility] 00:00:00 00:00:00 Medical Branch Smoking Status Start Date Stop Date Source Tobacco smoking consumption [facility] unknown Branch Never Smoker [facility] Medications Ordered Filled Start [...] Source Systolic blood 2022-11-20 19:55:00 128 mm[facility]Hg[facility] Diastolic blood 2022-11-20 19:55:00 76 mm[Hg] [facility] Heart rate 2022-11-20 19:55:00 82 /min [facility] Body temperature 2022-11-20 19:55:00 36.67 Kiley [facility] Respiratory rate 2022-11-20 19:55:00 18 /min [facility] Body height 2022-11-20 19:55:00 162.6 cm [facility] Body weight 2022-11-20 19:55:00 72.576 kg [facility] BMI 2022-11-20 19:55:00 27.46 kg/m2 [facility] Oxygen saturation in 2022-11-20 19:55:00 100 /min [facility] Arterial blood by [facility] Pulse oximetry Branch BP Diastolic 2022-06-22 00:00:00 82 mm[Hg] [facility] Height 2022-06-22 00:00:00 64 [in_i] [facility] BMI (Body Mass 2022-06-22 00:00:00 26 kg/m2 [facility]) Group BP Systolic 2022-06-22 00:00:00 131 mm[Hg] [facility] Body Weight 2022-06-22 00:00:00 151.4 [lb_av] [facility] BP Diastolic 2022-05-08 00:00:00 92 mm[Hg] [facility] Height 2022-05-08 00:00:00 64 [in_i] [facility] BMI (Body Mass 2022-05-08 00:00:00 25.9 kg/m2 [facility] Medical Index) Group BP Systolic 2022-05-08 00:00:00 142 mm[Hg] [facility] Body Weight 2022-05-08 00:00:00 151 [lb_av] [facility] Height 2022-03-18 00:00:00 64 [in_i] [facility] BP Diastolic 2021-12-18 00:00:00 88 mm[Hg] [facility] Height 2021-12-18 00:00:00 64 [in_i] [facility] BMI (Body Mass 2021-12-18 00:00:00 25.5 kg/m2 [facility] Medical Index) Group BP Systolic 2021-12-18 00:00:00 138 mm[Hg] [facility] Body Weight 2021-12-18 00:00:00 148.4 [lb_av] [facility] Height 2021-09-17 00:00:00 64 [in_i] [facility] BMI (Body Mass 2021-09-17 00:00:00 23.2 kg/m2 [facility] Medical Index) Group Body Weight 2021-09-17 00:00:00 135 [lb_av] [facility] BP Diastolic 2021-09-02 00:00:00 75 mm[Hg] [facility] Height 2021-09-02 00:00:00 64 [in_i] [facility] BMI (Body Mass 2021-09-02 00:00:00 23 kg/m2 [facility] Medical Index) Group BP Systolic 2021-09-02 00:00:00 119 mm[Hg] [facility] Body Weight 2021-09-02 00:00:00 134.2 [lb_av] [facility] BP Diastolic 2021-08-19 00:00:00 87 mm[Hg] [facility] Height 2021-08-19 00:00:00 64 [in_i] [facility] BMI (Body Mass 2021-08-19 00:00:00 22.6 kg/m2 [facility] Medical Index) Group BP Systolic 2021-08-19 00:00:00 124 mm[Hg] [facility] Body Weight 2021-08-19 00:00:00 131.9 [lb_av] [facility] BP Diastolic 2021-04-11 00:00:00 81 mm[Hg] [facility] Height 2021-04-11 00:00:00 64 [in_i] [facility] BMI (Body Mass 2021-04-11 00:00:00 21.1 kg/m2 [facility] Medical Index) Group BP Systolic 2021-04-11 00:00:00 144 mm[Hg] [facility] Body Weight 2021-04-11 00:00:00 122.9 [lb_av] [facility] Height 2021-03-24 00:00:00 64 [in_i] [facility] BMI (Body Mass 2021-03-24 00:00:00 20.9 kg/m2 [facility] Medical Index) Group BP Systolic 2021-03-24 00:00:00 127 mm[Hg] [facility] Body Weight 2021-03-24 00:00:00 122 [lb_av] [facility] BP Diastolic 2021-03-24 00:00:00 83 mm[Hg] [facility] BP Diastolic 2020-09-24 00:00:00 83 mm[Hg] [facility] Height 2020-09-24 00:00:00 64 [in_i] [facility] BMI (Body Mass 2020-09-24 00:00:00 22.7 kg/m2 [facility] Index) Group BP Systolic 2020-09-24 00:00:00 120 mm[Hg] [facility] Body Weight 2020-09-24 00:00:00 132.4 [lb_av] [facility] BP Diastolic 2020-08-20 00:00:00 70 mm[Hg] [facility] Height 2020-08-20 00:00:00 64 [in_i] [facility] BMI (Body Mass 2020-08-20 00:00:00 22.6 kg/m2 [facility] Index) Group BP Systolic 2020-08-20 00:00:00 131 mm[Hg] [facility] Body Weight 2020-08-20 00:00:00 131.5 [lb_av] [facility] BP Diastolic 2020-08-05 00:00:00 80 mm[Hg] [facility] Height 2020-08-05 00:00:00 64 [in_i] [facility] BMI (Body Mass 2020-08-05 00:00:00 22.3 kg/m2 [facility] Index) Group BP Systolic 2020-08-05 00:00:00 130 mm[Hg] [facility] Body Weight 2020-08-05 00:00:00 130 [lb_av] [facility] BP Diastolic 2020-04-23 00:00:00 82 mm[Hg] [facility] Height 2020-04-23 00:00:00 64 [in_i] [facility] BMI (Body Mass 2020-04-23 00:00:00 23 kg/m2 [facility] supervisor Medical Index) Group BP Systolic 2020-04-23 00:00:00 128 mm[Hg] [facility] Body Weight 2020-04-23 00:00:00 134 [lb_av] [facility] BP Diastolic 2020-01-02 00:00:00 73 mm[Hg] [facility] Height 2020-01-02 00:00:00 64 [in_i] [facility] BMI (Body Mass 2020-01-02 00:00:00 21.8 kg/m2 [facility] Index) Group BP Systolic 2020-01-02 00:00:00 114 mm[Hg] [facility] Body Weight 2020-01-02 00:00:00 127.1 [lb_av] [facility] BP Diastolic 2019-09-19 00:00:00 78 mm[Hg] [facility] Height 2019-09-19 00:00:00 64 [in_i] [facility] BMI (Body Mass 2019-09-19 00:00:00 21.8 kg/m2 [facility] Index) Group BP Systolic 2019-09-19 00:00:00 122 mm[Hg] [facility] Body Weight 2019-09-19 00:00:00 127.2 [lb_av] [facility] BP Diastolic 2019-08-02 00:00:00 77 mm[Hg] [facility] Height 2019-08-02 00:00:00 64 [in_i] [facility] BMI (Body Mass 2019-08-02 00:00:00 22 kg/m2 [facility] Index) Group BP Systolic 2019-08-02 00:00:00 116 mm[Hg] [facility] Body Weight 2019-08-02 00:00:00 128 [lb_av] [facility] BP Diastolic 2019-07-19 00:00:00 76 mm[Hg] [facility] Height 2019-07-19 00:00:00 64 [in_i] [facility] BMI (Body Mass 2019-07-19 00:00:00 21.8 kg/m2 [facility] Index) Group BP Systolic 2019-07-19 00:00:00 117 mm[Hg] [facility] Body Weight 2019-07-19 00:00:00 127 [lb_av] [facility] BP Diastolic 2019-07-05 00:00:00 63 mm[Hg] [facility] Height 2019-07-05 00:00:00 64 [in_i] [facility] BMI (Body Mass 2019-07-05 00:00:00 21.9 kg/m2 [facility] Index) Group BP Systolic 2019-07-05 00:00:00 103 mm[Hg] [facility] Body Weight 2019-07-05 00:00:00 127.5 [lb_av] [facility] BP Diastolic 2019-06-05 00:00:00 76 mm[Hg] [facility] Height 2019-06-05 00:00:00 64 [in_i] [facility] BMI (Body Mass 2019-06-05 00:00:00 20.9 kg/m2 [facility] Index) Group BP Systolic 2019-06-05 00:00:00 106 mm[Hg] [facility] Body Weight 2019-06-05 00:00:00 122 [lb_av] [facility] BP Diastolic 2019-05-08 00:00:00 69 mm[Hg] [facility] Height 2019-05-08 00:00:00 64 [in_i] [facility] BMI (Body Mass 2019-05-08 00:00:00 20.5 kg/m2 [facility] Index) Group BP Systolic 2019-05-08 00:00:00 107 mm[Hg] [facility] Body Weight 2019-05-08 00:00:00 119.4 [lb_av] [facility] BP Diastolic 2019-04-10 00:00:00 81 mm[Hg] [facility] Height 2019-04-10 00:00:00 64 [in_i] [facility] BMI (Body Mass 2019-04-10 00:00:00 19.3 kg/m2 [facility] Index) Group BP Systolic 2019-04-10 00:00:00 119 mm[Hg] [facility] Body Weight 2019-04-10 00:00:00 112.5 [lb_av] [facility] BP Diastolic 2019-04-04 00:00:00 85 mm[Hg] [facility] Height 2019-04-04 00:00:00 64 [in_i] [facility] BMI (Body Mass 2019-04-04 00:00:00 19.4 kg/m2 [facility] Index) Group BP Systolic 2019-04-04 00:00:00 132 mm[Hg] [facility] Body Weight 2019-04-04 00:00:00 113 [lb_av] [facility] BP Diastolic 2019-03-14 00:00:00 87 mm[Hg] [facility] Height 2019-03-14 00:00:00 64 [in_i] [facility] BMI (Body Mass 2019-03-14 00:00:00 19.1 kg/m2 [facility] Index) Group BP Systolic 2019-03-14 00:00:00 124 mm[Hg] [facility] Body Weight 2019-03-14 00:00:00 111 [lb_av] [facility] BP Diastolic 2019-02-14 00:00:00 97 mm[Hg] [facility] Height 2019-02-14 00:00:00 64 [in_i] [facility] BMI (Body Mass 2019-02-14 00:00:00 20.6 kg/m2 [facility] Index) Group BP Systolic 2019-02-14 00:00:00 135 mm[Hg] [facility] Body Weight 2019-02-14 00:00:00 120 [lb_av] [facility] BP Diastolic 2019-02-07 00:00:00 83 mm[Hg] [facility] Height 2019-02-07 00:00:00 64 [in_i] [facility] BMI (Body Mass 2019-02-07 00:00:00 22 kg/m2 [facility] Index) Group BP Systolic 2019-02-07 00:00:00 124 mm[Hg] [facility] Body Weight 2019-02-07 00:00:00 128.4 [lb_av] [facility] BP Diastolic 2019-01-26 00:00:00 84 mm[Hg] [facility] Height 2019-01-26 00:00:00 64 [in_i] [facility] BMI (Body Mass 2019-01-26 00:00:00 22.4 kg/m2 [facility] Index) Group BP Systolic 2019-01-26 00:00:00 128 mm[Hg] [facility] Body Weight 2019-01-26 00:00:00 130.4 [lb_av] [facility] BP Diastolic 2019-01-03 00:00:00 76 mm[Hg] [facility] Height 2019-01-03 00:00:00 64 [in_i] [facility] BMI (Body Mass 2019-01-03 00:00:00 22.4 kg/m2 [facility] 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 METABOLIC PANEL (33931) 2022-11-20 [facility] 20:48:00 [facility] LIPID PANEL (47805)(TOTAL 2022-11-20 [facility] CHOLESTEROL, TRIGLYCERIDES, 20:48:00 [facility] HDL) CBC WITH DIFF 2022-11-20 [facility] 20:48:00 [facility] GLYCOSYLATED HEMOGLOBIN (A1C) 2022-11-20 [facility] 20:48:00 [facility] FREE T3 2022-11-20 [facility] 20:48:00 [facility] US, transvaginal 2021-03-24 [facility] 00:[facility]:00 Group US, obstetric, limited 2019-08-02 [facility] 00:00:00 Group US(FBP)W/0 NON STRESS TEST 2019-08-02 [facility] 00:00:00 Group ULTRASOUND REPEAT 2019-07-05 [facility] 00:00:00 Group US, obstetric, limited 2019-04-10 [facility] 00:00:00 Group ULTRASOUND, UTERUS 2019-04-10 [facility] DOC, 00:00:00 Group AND MATERNAL EVAL PLUS DETAILED ANATOMIC EXAMINATION, TRANSABDOMINAL APPROACH; SINGLE OR FIRST GESTATION US, obstetric, limited 2019-03-14 [facility] 00:00:00 Group ULTRASOUND, UTERUS 2019-02-14 [facility] REAL TIME WITH IMAGE 00:00:00 Group DOCUMENTAITON, TRANSVAGINAL ULTRASOUND, UTERUS 2019-01-26 [facility] REAL TIME WITH IMAGE 00:00:00 Group DOCUMENTAITON, TRANSVAGINAL XR, hysterosalpingogram 2019-01-03 [facility] Cholecystectomy 2018-11-08 [facility] 00:00:00 Group Dilation and Curettage 2014-09-08 [facility] 00:00:00 Group Plan of Care Planned Activity Planned Date Details Comments Source Diagnostic Test 2022-06-22 test, [facility] Pending 00:00:00 urine [code = Group test, urine] Encounters Start End Encounter Admission Attending Care Care Encounter Source Date/Time Date/Time Type Type Clinicians Facility Department ID 2023-11-23 2023-11-23 Outpatient R CLARICE SMITH [facility] [id number] [facility] 09:30:00 09:30:00 CLARICE SMITH ity [facility] 2022-11-20 2022-11-20 Rn Otolaryngology 2, Adc Lab [facility] [id number] [facility] 15:30:00 15:45:00 Visit Clarice Smith [id number] [id number] [id number] Nd dical NAL [address] [place] [address] 2022-11-20 2022-11-20 Outpatient R CLARICE SMITH [facility] [id number] Univers 14:00:00 14:34:54 CLARICE SMITH ity [facility] 2022-11-20 2022-11-20 Office Norberto [facility] [id number] [facility] 14:00:00 14:34:54 [facility] [id number] [id number] [id number] Nd dical NAL 044 [facility] 2022-10-23 2022-10-23 Outpatient Rutledge_L MMG MMG [id number] [...] 0816 [facility] 2022-06-22 2022-06-22 Judy Rutledge_[place] - [id number] 022 [facility] 00:00:00 00:00:00 Adan Eagle 0815 mark [facility] PAGE: [address] [facility] [address], [place] [address] , Ph. [phone] 2022-06-16 2022-06-16 Outpatient Rutledge_L MMG MMG 2716 [place] 00:00:00 00:00:00 0809 [facility] 2022-05-08 2022-05-08 Arun Rutledge_[place] MM[place] - [id number] 022 [facility] 00:00:00 00:00:00 Discovery Lyric 0701 da MD: [address] [place] [address] , Ph. [phone] 2022-03-18 2022-03-18 Arun Fernández_L MMG [place] - [id number] 022 [place] 00:00:00 00:00:00 Discovery Lyric 0511 mark MD: [address] [place] [address] , Ph. 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 [phone] 2021-08-27 2021-08-27 Outpatient Rutledge_L MMG MMG 2716 [place] 11:50:00 11:50:00 1020 [facility] 2021-08-19 2021-08-19 Patricia Katieledge_L MMG [place] - [id number] 021 [facility] 00:00:00 00:00:00 Discovery Martha 1012 da [facility]-: [address] [address] , Ph. [phone] 2021-04-22 2021-04-22 Outpatient Rutledge_L MMG MMG 2716 [place] 01:40:00 01:40:00 0615 [facility] 2021-04-11 2021-04-11 Ar[place] Wilsonledge_[place] MM[place] - [id number] 021 [place] 00:00:00 00:00:00 Discovery Lyric 0604 mark MD: [address] [place] [address] , Ph. [phone] 2021-03-24 2021-03-24 Arun Wilsonledge_[place] MM[place] - [id number] 021 [place] 00:00:00 00:00:00 Discovery Lyric 0517 mark MD: [address] [place] [address] , Ph. [phone] 2020-12-02 2020-12-02 Outpatient Rutledge_L MMG MMG 2716 [place] 12:46:00 12:46:00 0125 [facility] 2020-11-27 2020-11-27 Outpatient Rutledge_L MMG MMG 2716 [place] 03:56:00 03:56:00 0120 [facility] 2020-11-25 2020-11-25 Outpatient Rutledge_L MMG MMG 2716 [place] 02:38:00 02:38:00 0118 [facility] 2020-09-25 2020-09-25 Outpatient Rutledge_L MMG MMG 2716 [place] 02:21:00 02:21:00 1118 [facility] 2020-09-24 2020-09-24 Judy Rutledge_[place] - [id number] 020 [place] 00:00:00 00:00:00 Adan Eagle 1117 Elizabeth [facility] MD: [address] [place] [address] , Ph. [phone] 2020-09-14 2020-09-14 Outpatient Rutledge_L MMG MMG 2716 [place] 12:28:00 12:28:00 1107 da [facility] 2020-08-20 2020-08-20 Yary Wilsonledge_L MMG [place] - 2716 [place] 00:00:00 00:00:00 Discovery Yves 1013 da WHNP: [facility] [address] [address] , Ph. [phone] 2020-08-05 2020-08-05 Yary Wilsonledge_L MMG [place] - 2716 [place] 00:00:00 00:00:00 Discovery Yves 0928 da WHNP: [facility] [address] [address] , Ph. [phone] 2020-05-04 2020-05-04 Outpatient Rutledge_L MMG MMG 2716 [place] 11:32:00 11:32:00 0627 [facility] 2020-04-23 2020-04-23 Yary Wilsonledge_L MMG [place] - 2716 [place] 00:00:00 00:00:00 Discovery Yves 0616 da WHNP: [facility] Medical Medica [address] [address] , Ph. [phone] 2020-02-12 2020-02-12 Outpatient Rutledge_L MMG MMG 2716 [place] 05:07:00 05:07:00 0406 [facility] 2020-01-15 2020-01-15 Outpatient Rutledge_L MMG MMG 2716 [place] 10:29:00 10:29:00 0309 [facility] 2020-01-05 2020-01-05 Outpatient Rutledge_L MMG MMG 2716 [place] 09:41:00 09:41:00 0228 [facility] 2020-01-04 2020-01-04 Outpatient Rutledge_L MMG MMG 2716 [place] 06:57:00 06:57:00 0227 Medical Group 2020-01-02 2020-01-02 Judy Rutledge_[place] - [id number] 020 [place] 00:00:00 00:00:00 Adan Eagle 0225 Elizabeth Davis Medicshila vieyra MD: [address] [address] , Ph. [phone] 2019-12-19 2019-12-19 Outpatient Rut[facility]_L MMG MMG 2716 [place] 03:47:00 03:47:00 0211 Medical Group 2019-12-11 2019-12-11 Outpatient DICLEMENTE_ MEHOP MEHOP 750 [place] 11:19:00 11:19:00 TEETEE 0203 mark [facility] 2019-09-19 2019-09-19 Yary Ramirez [facility] [place] - [id number] 019 [place] 00:00:00 00:00:00 Discovery Yves 1112 da WHNP: [facility] [address] [address] , Ph. [phone] 2019-08-02 2019-08-02 Judy [facility] [place] - [id number] [place] 00:00:00 00:00:00 Adan Eagle 0925 Elizabeth Davis MD: [address] [address] , Ph. [phone] 2019-07-19 2019-07-19 [facility] [place] 00:00:00 00:00:00 Adan Eagle 0911 Elizabeth Davis MD: [address] [place] [address] OBGYN [address], [place] [address] , Ph. [phone] 2019-07-05 2019-07-05 [facility] [place] 00:00:00 00:00:00 Adan Eagle 0828 Elizabeth Davis MD: [address] [place] [address] [address], [place] [address] , Ph. [phone] 2019-06-05 2019-06-05 [facility]:00 00:00:00 Adan Eagle 0729 Elizabeth Davis MD: [address] [place] [address] [address], [place] [address] , Ph. [phone] 2019-05-08 2019-05-08 [facility] [place] 00:00:00 00:00:00 Adan Eagle 0701 Elizabeth Davis MD: [address] [place] [address], OBGYN [address], [place] [address] , Ph. [phone] 2019-04-10 2019-04-10 [facility] [place] 00:00:00 00:00:00 Adan Eagle 0603 Elizabeth Davis MD: [address] [place] [address] [address], [place] [address] , Ph. [phone] 2019-04-04 2019-04-04 [facility] - [place] 00:00:00 00:00:00 Teetee Richardson MD: Elizabeth vieyra [address] [place] [address], General [address], [place] [address] , Ph. [phone] 2019-03-14 2019-03-14 [facility] [address] [place] 00:00:00 00:00:00 Adan Eagle 0507 Elizabeth Davis MD: [address] [place] [address] , Ph. [phone] 2019-02-14 2019-02-14 [facility] [id number] [place] 00:00:00 00:00:00 Adan Eagle 0409 Elizabeth Davis MD: [address] [place] [address] , Ph. [phone] 2019-02-07 2019-02-07 [facility] [id number] [place] 00:00:00 00:00:00 Adan Eagle 0402 Elizabeth Davis MD: [address] [place] [address] , Ph. [phone] 2019-01-26 2019-01-26 [facility] [id number] [place] 00:00:00 00:00:00 Adan Eagle 0321 Elizabeth Davis MD: [address] [place] [address] , Ph. [phone] 2019-01-03 2019-01-03 [facility] [address] [place] 00:00:00 00:00:00 Adan Eagle 0226 Elizabeth Davis MD: [address] [place] [address] , Ph. [phone] Results Test Description Test Time Test Comments Results Result Comments Source test, urine 2022-06-22 16:10:50 Test Item Value Reference Range Interpretation Comme nts Test (test code = Test) negative [facility] in Vaginal fluid by Wet [id number] 10:17:41 Test Item Value Reference Range Interpretation Comments Clue Cells (test code = Clue Cells) negative WBCs (test code = WBCs) negative Trichomonads (test code = negative Trichomonads) Epithelial cells (test code = normal Epithelial cells) RBCs (test code = RBCs) positive [facility] [facility], [id number] 18:02:09 Test Item Value Reference Range Interpretation Comments Test (test code = negative Test) [facility] [id number] 11:50:35 Test Item Value Reference Range Interpretation Comments Test (test code = negative Test) [facility] [id number] 15:40:27 Test Item Value Reference Range Interpretation Comments Test (test code = negative Test) [facility] [id number] 14:38:52 Test Item Value Reference Range Interpretation Comments Test (test code = negative Test) [facility], [id number] 14:38:52 Test Item Value Reference Range Interpretation Comments Test (test code = negative Test) [facility], [id number] 14:38:52 Test Item Value Reference Range Interpretation Comments Test (test code = negative Test) [facility] TV, DNA, urine/[id number] 00:00:00 Test Item Value Reference Range Interpretation [...] (reflex to antibiotic resistance by molecular analysis)) [facility] + TV, DNA, urine/[id number] 00:00:00 Test Item Value Reference Range Interpretation [...] (reflex to antibiotic resistance by molecular analysis)) [facility] + NG + TV, DNA, urine/[id number] 00:00:00 Test Item Value Reference Range Interpretation [...] (reflex to antibiotic resistance by molecular analysis)) [facility], LB + [id number] 00:00:00 Test Item Value Reference Range Interpretation Comments HPV type-detect 4.0 by real time not detected PCR high risk subtypes only (test code = HPV type-detect 4.0 by real time PCR high risk subtypes only) liquid Pap test (test code = normal liquid Pap test) [facility], LB + [id number] 00:00:00 Test Item Value Reference Range Interpretation Comments HPV type-detect 4.0 by real time not detected PCR high risk subtypes only (test code = HPV type-detect 4.0 by real time PCR high risk subtypes only) liquid Pap test (test code = normal liquid Pap test) [facility], LB + [id number] 00:00:00 Test Item Value Reference Range Interpretation Comments HPV type-detect 4.0 by real time not detected PCR high risk subtypes only (test code = HPV type-detect 4.0 by real time PCR high risk subtypes only) liquid Pap test (test code = normal liquid Pap test) [facility] W Auto Differential panel - [id number] 12:15:00 Test Item Value Reference Range Interpretation Comments white blood count (test code = 5.0 K/uL 4.0-11.5 white blood count) red blood count (test code = red 4.15 M/uL 3.80-5.20 blood count) hemoglobin (test code = 12.9 g/dL 10.5-15.7 hemoglobin) hematocrit (test code = 40.9 % 34.0-50.0 hematocrit) MCV [Entitic volume] (test code = 98.6 fL 86-100 89360-9) mean corpuscular hemoglobin (test 31.1 pg 26.2-33.4 [...] 44.4-80.1 leukocytes in Blood (test code = 28731-5) Immature granulocytes [#/volume] 0.0 K/uL 0.0-0.03 in Blood (test code = 95407-0) lymphocyte% (test code = 44.6 % 10.0-50.0 lymphocyte%) mono % (test code = mono %) 6.3 % 3.6-12.0 eos % (test code = eos %) 1.6 % 0.0-5.4 Basophils/100 leukocytes in 1.0 % 0.1-1.2 Unspecified specimen (test code = 18245-7) Band form neutrophils [#/volume] 2.34 K/uL 1.56-6.13 in Blood (test code = 96526-4) Lymphocytes [#/volume] in 2.3 K/uL 1.18-3.74 Unspecified specimen by Automated count (test code = 07308-2) mono # (test code = mono #) 0.32 K/uL 0.24-0.86 eos # (test code = eos #) 0.08 K/uL 0.04-0.36 basophil # (test code = basophil 0.05 K/uL 0.01-0.08 #) NRBC% (test code = NRBC%) 0 /100 WBC 0-0.2 NRBC# (test code = NRBC#) 0 K/uL [facility]Com[facility] 2000 [facility] - Serum or Plasma [...] Serum or Plasma (test code = 6768-6) [facility] W Auto Differential panel - [id number] 12:15:00 Test Item Value Reference Range Interpretation Comments white blood count (test code = 5.0 K/uL 4.0-11.5 white blood count) red blood count (test code = red 4.15 M/uL 3.80-5.20 blood count) hemoglobin (test code = 12.9 g/dL 10.5-15.7 hemoglobin) hematocrit (test code = 40.9 % 34.0-50.0 hematocrit) MCV [Entitic volume] (test code = 98.6 fL 86-100 38231-2) mean corpuscular hemoglobin (test 31.1 pg 26.2-33.4 [...] 44.4-80.1 leukocytes in Blood (test code = 92584-2) Immature granulocytes [#/volume] 0.0 K/uL 0.0-0.03 in Blood (test code = 77582-6) lymphocyte% (test code = 44.6 % 10.0-50.0 lymphocyte%) mono % (test code = mono %) 6.3 % 3.6-12.0 eos % (test code = eos %) 1.6 % 0.0-5.4 Basophils/100 leukocytes in 1.0 % 0.1-1.2 Unspecified specimen (test code = 00655-9) Band form neutrophils [#/volume] 2.34 K/uL 1.56-6.13 in Blood (test code = 41414-9) Lymphocytes [#/volume] in 2.3 K/uL 1.18-3.74 Unspecified specimen by Automated count (test code = 26227-5) mono # (test code = mono #) 0.32 K/uL 0.24-0.86 eos # (test code = eos #) 0.08 K/uL 0.04-0.36 basophil # (test code = basophil 0.05 K/uL 0.01-0.08 #) NRBC% (test code = NRBC%) 0 /100 WBC 0-0.2 NRBC# (test code = NRBC#) 0 K/uL [facility]Com[facility] 2000 panel - Serum or Plasma [...] Serum or Plasma (test code = 6768-6) [facility] W Auto Differential panel - [id number] 12:15:00 Test Item Value Reference Range Interpretation Comments white blood count (test code = 5.0 K/uL 4.0-11.5 white blood count) red blood count (test code = red 4.15 M/uL 3.80-5.20 blood count) hemoglobin (test code = 12.9 g/dL 10.5-15.7 hemoglobin) hematocrit (test code = 40.9 % 34.0-50.0 hematocrit) MCV [Entitic volume] (test code = 98.6 fL 86-100 56031-2) mean corpuscular hemoglobin (test 31.1 pg 26.2-33.4 [...] 44.4-80.1 leukocytes in Blood (test code = 55880-3) Immature granulocytes [#/volume] 0.0 K/uL 0.0-0.03 in Blood (test code = 88598-8) lymphocyte% (test code = 44.6 % 10.0-50.0 lymphocyte%) mono % (test code = mono %) 6.3 % 3.6-12.0 eos % (test code = eos %) 1.6 % 0.0-5.4 Basophils/100 leukocytes in 1.0 % 0.1-1.2 Unspecified specimen (test code = 28927-0) Band form neutrophils [#/volume] 2.34 K/uL 1.56-6.13 in Blood (test code = 47919-0) Lymphocytes [#/volume] in 2.3 K/uL 1.18-3.74 Unspecified specimen by Automated count (test code = 00648-4) mono # (test code = mono #) 0.32 K/uL 0.24-0.86 eos # (test code = eos #) 0.08 K/uL 0.04-0.36 basophil # (test code = basophil 0.05 K/uL 0.01-0.08 #) NRBC% (test code = NRBC%) 0 /100 WBC 0-0.2 NRBC# (test code = NRBC#) 0 K/uL [facility]Com[facility] 2000 panel - Serum or Plasma [...] Serum or Plasma (test code = 6768-6) [facility] CenterReagin Ab [Presence] in Serum by [id number] 00:00:00 Test Item Value Reference Range Interpretation Comments Reagin Ab [Presence] in Serum by nonreactive nonreactive RPR (test code = 07402-6) [facility] CenterDifferential panel, method unspecified - [id number] 00:00:00NeutrophilsBandLymphocyteAtypical LymphMonocyteEosinophilBasophilMetamyelocyteMyelocytePromyelocyteBlastsNucleated Red Blood CellAbs Neutrophil Count (Man)Abs Lymph Count (Man)Abs Monocyte Count (Man)Abs Eosinophil Count (Man)Abs Basophil Count (Man)Platelet EstimatePlatelet MorphologyPolychromasiaMacrocytosisHypersegmented Polys [facility] CenterThyrotropin [Units/volume] in Serum or [id number] 00:00:00 Test Item Value Reference Range Interpretation Comments Thyrotropin [Units/volume] in 0.95 uIU/mL 0.36-3.74 Serum or Plasma (test code = 3016-3) [facility] CenterThyroxine (T4) free [Mass/volume] in Serum or Plasma 2021-08-19 00:00:00 Test Item Value Reference Range Interpretation Comments free T4 (test code = free T4) 0.96 NG/dL 0.93-1.7 [facility] CenterHIV 1+2 Ab [Presence] in [id number] 00:00:00HIV P24 AgHIV-1/2 AbMaTurning Point Mature Adult Care UnitHepatitis B virus surface Ag [Presence] in [id number] 00:00:00 Test Item Value Reference Range Interpretation Comments .hepatitis B surface antigen (test negative negative code = .hepatitis B surface antigen) [facility] CenterReagin Ab [Presence] in Serum by [id number] 00:00:00 Test Item Value Reference Range Interpretation Comments Reagin Ab [Presence] in Serum by nonreactive nonreactive RPR (test code = 79249-1) [facility] CenterDifferential panel, method unspecified - [id number] 00:00:00NeutrophilsBandLymphocyteAtypical LymphMonocyteEosinophilBasophilMetamyelocyteMyelocytePromyelocyteBlastsNucleated Red Blood CellAbs Neutrophil Count (Man)Abs Lymph Count (Man)Abs Monocyte Count (Man)Abs Eosinophil Count (Man)Abs Basophil Count (Man)Platelet EstimatePlatelet MorphologyPolychromasiaMacrocytosisHypersegmented Polys [facility] CenterThyrotropin [Units/volume] in Serum or [id number] 00:00:00 Test Item Value Reference Range Interpretation Comments Thyrotropin [Units/volume] in 0.95 uIU/mL 0.36-3.74 Serum or Plasma (test code = 3016-3) [facility] CenterThyroxine (T4) free [Mass/volume] in Serum or Plasma 2021-08-19 00:00:00 Test Item Value Reference Range Interpretation Comments free T4 (test code = free T4) 0.96 NG/dL 0.93-1.7 [facility] CenterHIV 1+2 Ab [Presence] in [id number] 00:00:00HIV P24 AgHIV-1/2 AbMataMississippi Baptist Medical CenterHepatitis B virus surface Ag [Presence] in [id number] 00:00:00 Test Item Value Reference Range Interpretation Comments .hepatitis B surface antigen (test negative negative code = .hepatitis B surface antigen) [facility] CenterReagin Ab [Presence] in Serum by [id number] 00:00:00 Test Item Value Reference Range Interpretation Comments Reagin Ab [Presence] in Serum by nonreactive nonreactive RPR (test code = 68183-0) [facility] CenterDifferential panel, method unspecified - [id number] 00:00:00NeutrophilsBandLymphocyteAtypical LymphMonocyteEosinophilBasophilMetamyelocyteMyelocytePromyelocyteBlastsNucleated Red Blood CellAbs Neutrophil Count (Man)Abs Lymph Count (Man)Abs Monocyte Count (Man)Abs Eosinophil Count (Man)Abs Basophil Count (Man)Platelet EstimatePlatelet MorphologyPolychromasiaMacrocytosisHypersegmented Polys [facility] CenterThyrotropin [Units/volume] in Serum or [id number] 00:00:00 Test Item Value Reference Range Interpretation Comments Thyrotropin [Units/volume] in 0.95 uIU/mL 0.36-3.74 Serum or Plasma (test code = 3016-3) [facility] CenterThyroxine (T4) free [Mass/volume] in Serum or Plasma 2021-08-19 00:00:00 Test Item Value Reference Range Interpretation Comments free T4 (test code = free T4) 0.96 NG/dL 0.93-1.7 [facility] CenterHIV 1+2 Ab [Presence] in [id number] 00:00:00HIV P24 AgHIV-1/2 AbMatagoWinston Medical CenterHepatitis B virus surface Ag [Presence] in [id number] 00:00:00 Test Item Value Reference Range Interpretation Comments .hepatitis B surface antigen (test negative negative code = .hepatitis B surface antigen) [facility] CenterUrinalysis macro (dipstick) panel - [id number] 16:06:55 Test Item Value Reference Range Interpretation Comments Leukocytes (test code = Negative Leukocytes) Nitrite (test code = negative Nitrite) Urobilinogen (test code = .2 Urobilinogen) Protein (test code = Negative Protein) pH (test code = pH) 7.0 Blood (test code = Blood) Non-Hemolyzed: Trace Specific [place] (test 1.020 code = Specific [place]) Ketone (test code = Negative Ketone) Bilirubin (test code = Negative Bilirubin) Glucose (test code = Negative Glucose) Appearance (test code = Clear Appearance) Color (test code = Color) Yellow [facility] Centerpregnancy test, [id number] 16:22:27 Test Item Value Reference Range Interpretation Comments Test (test code = negative Test) [facility] Centerp[facility], [id number] 16:22:27 Test Item Value Reference Range Interpretation Comments Test (test code = negative Test) [facility] CenterUrinalysis macro (dipstick) panel - [id number] 16:22:10 Test Item Value Reference Range Interpretation Comments Leukocytes (test code = Leukocytes) Negative Nitrite (test code = Nitrite) negative Urobilinogen (test code = .2 Urobilinogen) Protein (test code = Protein) Negative pH (test code = pH) 7.0 Blood (test code = Blood) Negative Specific [place] (test code = 1.025 Specific [place]) Ketone (test code = Ketone) Negative Bilirubin (test code = Bilirubin) Negative Glucose (test code = Glucose) Negative Appearance (test code = Appearance) Clear Color (test code = Color) Yellow [facility] CenterUrinalysis macro (dipstick) panel - [id number] 16:22:10 Test Item Value Reference Range Interpretation Comments Leukocytes (test code = Leukocytes) Negative Nitrite (test code = Nitrite) negative Urobilinogen (test code = .2 Urobilinogen) Protein (test code = Protein) Negative pH (test code = pH) 7.0 Blood (test code = Blood) Negative Specific [place] (test code = 1.025 Specific [place]) Ketone (test code = Ketone) Negative Bilirubin (test code = Bilirubin) Negative Glucose (test code = Glucose) Negative Appearance (test code = Appearance) Clear Color (test code = Color) Yellow [facility] CenterReagin Ab [Presence] in Serum by [id number] 06:56:00 Test Item Value Reference Range Interpretation Comments Reagin Ab [Presence] in Serum by nonreactive nonreactive RPR (test code = 09936-6) [facility] CenterHIV 1+2 Ab [Presence] in [id number] 06:56:00HIV P24 AgHIV-1/2 AbMataMississippi Baptist Medical CenterHepatitis B virus surface Ag [Presence] in [id number] 06:56:00 Test Item Value Reference Range Interpretation Comments .hepatitis B surface antigen (test negative negative code = .hepatitis B surface antigen) [facility] CenterHepatitis C virus RNA [Units/volume] (viral load) in Serum or Plasma by Probe with signal [id number] 06:56:00 Test Item Value Reference Range Interpretation Comments hepatitis C RNA CHICO,qual (test code negative negative = hepatitis C RNA CHICO,qual) [facility] Centerp[facility], [id number] 11:12:00 Test Item Value Reference Range Interpretation Comments Test (test code = negative Test) [facility] THIRD [id number] 17:41:00 RUN DATE: 08/31/19 [facility] PAGE 1 RUN TIME: 914 Specimen Inquiry RUN USER: INTERFACE --PATIENT: ANJELICA NAVARRO LOC: [facility] U #: [id number] AGE/SX: 29/F ROOM: 2023 RE08/02/[facility] DR:Isaiah Chase MD : 90 BED: A DIS: 08/30/19 STATUS: DIS IN TLOC: SPEC #: [id number] RECD: 08/26/19 STATUS: SANDY DOBBINS #: [id number] ILENE: 08/26/19- SUBM DR: Isaiah Chase MD ENTERED: 08/28/19 SPTYPE: PLACIII OTHR DR: ORDERED: LEVEL V SURGICA CODES: [id number] - PLACENTA, NOS PROCEDURES: LEVEL V SURGICA (Incomplete) TISSUES: PLACENTA, NOS - PLACENTA CLINICAL HISTORY 28 year old, 35.5 weeks, [id number], section, abnormal cord doppler, severe IUGR, prematurity, non-reassuring monitoring, increased SD ratios (kr) FINAL DIAGNOSIS Placenta, 35.5 weeks gestational age, section: - third trimester placenta, 300 gms (10th percentile) - meconium macrophages within membranes- patchy villous edema - marginally inserted trivascular umbilical cord and membranes free of inflammation CPT code(s): 39217 [facility] 08/30/19 GROSS DESCRIPTION The specimen was received in a container, labeled with the patient's name, unit number and designated "placenta". The following attributesare observed: Cord insertion: Marginal Cord length: 38 cm Number of vessels: 3 Cord color: Pantoja Othercord findings: Slightly edematous and less than 12 twists/10 cm surface findings: Steel blue,wrinkled, and glistening Vasculature: Displays unremarkable blood vasculature Membranes rupture site: 3 cm to margin Membrane color: Pantoja Other membrane findings: Thickened The trimmed placental weight:300 gm Disk measurement: 15.0 x 13.5 x 3.0 cm in greatest dimension CONTINUED ON NEXT PAGE ---- --------RUN DATE: 08/31/19 [facility] PAGE 2 RUN TIME: 914 Specimen Inquiry RUN USER: INTERFACE SP EC #: [id number] PATIENT: ANJELICA NAVARRO #[id number] (Continued) GROSS DESCRIPTION (Continued) Accessory lobes: None Maternal surface: Lobulated and intact Parenchyma: Red, beefy, and spongy with peripheral fibrosis Parenchyma lesions: None Cassettes: A1 through A4 hernan 08/28/19 @ 1207 Signed Gina Hurtado MD 08/30/19 1741 END OF REPORT CBC W/AUTO [id number] 08:08:00 Test Item Value Reference Range Interpretation [...] REQUIRED (test code = PLTMR) CBC W/AUTO [id number] 05:33:00 Test Item Value Reference Range Interpretation [...] NORMAL NORMAL code = PLTMR) CBC W/AUTO [id number] 05:29:00 Test Item Value Reference Range Interpretation [...] (test NORMAL NORMAL code = PLTMR) URINALYSIS [id number] 22:37:00 Test Item Value Reference Range Interpretation [...] = MUCU) RARE NONE SEEN CBC W/AUTO [id number] 18:07:00 Test Item Value Reference Range Interpretation [...] NORMAL code = PLTMR) AG HEPATITIS B [id number] 00:46:00 Test Item Value Reference Range Interpretation Comments AG HEPATITIS B SURFACE (test code NONREACTIVE NONREACTIVE = HBSAG) IS CONSENT FORM SIGNED FOR HIV TESTING? YAB HEPATITIS C [id number] 00:46:00 Test Item Value Reference Range Interpretation Comments AB HEPATITIS C (test code = NONREACTIVE NONREACTIVE HCVAB) SIGNAL TO CUTOFF (test code = 0.12 <0.80 N CUTOFF) IS CONSENT FORM SIGNED FOR HIV TESTING? YRUBELLA [id number] 00:46:00 Test Item Value Reference Range Interpretation Comments RUBELLA SCREEN 78.5 IUnit/ml Results >10. 0IUnits/ml (test code = are considered positive RUBSC) inaccordance wi th the CLSI guidelines and based on the [employer] S tandard for Anti-Rubell a serum as anindicator of immune status and a br eakpoint to detect mostseropositiv e persons. IS CONSENT FORM SIGNED FOR HIV TESTING? YAB [id number] 00:46:00 Test Item Value Reference Range Interpretation Comments AB TREPONEMA (test code = TREPAB) NONREACTIVE NONREACTIVE IS CONSENT FORM SIGNED FOR HIV TESTING? YAB HIV 1 00:46:00 Test Item Value Reference Range Interpretation Comments AB HIV 1 2 (test NONREACTIVE NONREACTIVE [facility] code = [id number]) 4th Gen HIV Ag/Ab Combo Screen IS CONSENT FORM SIGNED FOR HIV TESTING? YAG HEPATITIS B [id number] 00:10:00 Test Item Value Reference Range Interpretation Comments AG HEPATITIS B SURFACE (test code NONREACTIVE NONREACTIVE = HBSAG) IS CONSENT FORM SIGNED FOR HIV TESTING? YAB HEPATITIS C [id number] 00:10:00 Test Item Value Reference Range Interpretation Comments AB HEPATITIS C (test code = HCVAB) NONREACTIVE SIGNAL TO CUTOFF (test code = CUTOFF) <0.80 IS CONSENT FORM SIGNED FOR HIV TESTING? YRUBELLA [id number] 00:10:00 Test Item Value Reference Range Interpretation Comments RUBELLA SCREEN 78.5 IUnit/ml Results >10. 0IUnits/ml (test code = are considered positive RUBSC) inaccordance wi th the CLSI guidelines and based on the [employer] S tandard for Anti-Rubell a serum as anindicator of immune status and a br eakpoint to detect mostseropositiv e persons. IS CONSENT FORM SIGNED FOR HIV TESTING? YAB [id number] 00:10:00 Test Item Value Reference Range Interpretation Comments AB TREPONEMA (test code = TREPAB) NONREACTIVE NONREACTIVE IS CONSENT FORM SIGNED FOR HIV TESTING? YAB HIV 1 00:10:00 Test Item Value Reference Range Interpretation Comments AB HIV 1 2 (test code = [id number]) NONREACTIVE IS CONSENT FORM SIGNED FOR HIV TESTING? YCBC W/AUTO [id number] 23:05:00 Test Item Value Reference Range Interpretation [...] NORMAL code = PLTMR) Biophysical profile panel [id number] 09:13:00 Test Item Value Reference Range Interpretation Comments Amniotic Fluid Index (test code = 2 Amniotic Fluid Index) Tone (test code = Tone) 2 Breathing (test code = 2 Breathing) Movement (test code = 2 Movement) [facility] [id number] 09:13:00 Test Item Value Reference Range Interpretation Comments Amniotic Fluid Index (test code = 2 Amniotic Fluid Index) Tone (test code = Tone) 2 Breathing (test code = 2 Breathing) Movement (test code = 2 Movement) [facility] Biophysical profile panel [id number] 09:13:00 Test Item Value Reference Range Interpretation Comments Amniotic Fluid Index (test code = 2 Amniotic Fluid Index) Tone (test code = Tone) 2 Breathing (test code = 2 Breathing) Movement (test code = 2 Movement) [facility] CenterUrinalysis macro (dipstick) panel - [id number] 09:21:00 Test Item Value Reference Range Interpretation Comments Leukocytes (test code = Trace Leukocytes) Nitrite (test code = Nitrite) negative Urobilinogen (test code = .2 Urobilinogen) Protein (test code = Protein) Negative pH (test code = pH) 7.0 Blood (test code = Blood) Negative Specific [place] (test code = 1.020 Specific [place]) Ketone (test code = Ketone) Negative Bilirubin (test code = Bilirubin) Negative Glucose (test code = Glucose) Negative Appearance (test code = Clear Appearance) Color (test code = Color) Dark Yellow [facility] CenterUrinalysis macro (dipstick) panel - [id number] 11:07:00 Test Item Value Reference Range Interpretation Comments Leukocytes (test code = Leukocytes) Negative Nitrite (test code = Nitrite) negative Urobilinogen (test code = 1 Urobilinogen) Protein (test code = Protein) Negative pH (test code = pH) 7.0 Blood (test code = Blood) Negative Specific [place] (test code = 1.020 Specific [place]) Ketone (test code = Ketone) Negative Bilirubin (test code = Bilirubin) Negative Glucose (test code = Glucose) Negative Appearance (test code = Appearance) Clear Color (test code = Color) Yellow [facility] GroupCand[facility] sp DNA [Presence] in Vaginal fluid by Probe and target amplification [id number] 00:00:00 Test Item Value Reference Range Interpretation [...] = luis m glabrata by real-time PCR) [facility] GroupCand[facility] sp DNA [Presence] in Vaginal fluid by Probe and target amplification [id number] 00:00:00 Test Item Value Reference Range Interpretation [...] = luis m glabrata by real-time PCR) [facility] GroupCand[facility] sp DNA [Presence] in Vaginal fluid by Probe and target amplification [id number] 00:00:00 Test Item Value Reference Range Interpretation [...] = luis m glabrata by real-time PCR) [facility] GroupColony count [#/volume] in [id number] 00:00:00 Test Item Value Reference Range Interpretation [...] code = pseudomonas aeruginosa by real-time PCR) [facility], [id number] 00:00:00 Test Item Value Reference Range Interpretation [...] & av panel) by real time PCR) [facility] GroupCol[facility] count [#/volume] in [id number] 00:00:00 Test Item Value Reference Range Interpretation [...] code = pseudomonas aeruginosa by real-time PCR) [facility] Centerb[facility]inosis panel, [id number] 00:00:00 Test Item Value Reference Range Interpretation [...] & av panel) by real time PCR) [facility] CenterColony count [#/volume] in [id number] 00:00:00 Test Item Value Reference Range Interpretation [...] code = pseudomonas aeruginosa by real-time PCR) [facility] Centerb[facility]osis [facility], [id number] 00:00:00 Test Item Value Reference Range Interpretation [...] & av panel) by real time PCR) [facility] [id number] 09:45:00Results [facility] [id number] 09:45:00Results [facility] [id number] 09:45:00Results [facility] - [id number] 04:12:00 Test Item Value Reference Range Interpretation [...] fL 78-98 [Entitic volume] (test code = 57444-5) Erythrocyte mean corpuscular 31.3 pg 26.2-33.4 hemoglobin [Entitic mass] (test code = 31594-3) mean corpuscular HGB conc (test 33.0 g/dL 31.5-36.2 code = mean corpuscular HGB conc) red cell distribution width (test 11.3 % 11.5-15.5 L code = red cell distribution width) Platelets [#/volume] in Blood (test 221 K/uL 137-338 code = 73074-5) Platelet mean volume [Entitic 8.5 fL 8.4-11.8 volume] in Blood (test code = 28143-6) Neutrophils.band form/100 95.1 % 44.4-80.1 leukocytes in Blood (test code = 22576-8) Lymphocytes/100 leukocytes in Body 4.0 % 10.0-50.0 L fluid (test code = 07654-5) Monocytes/100 leukocytes in Blood 0.6 % 3.6-12.04 L by Automated count (test code = 5905-5) Eosinophils/100 leukocytes in Blood 0.1 % 0.0-5.41 by Automated count (test code = 713-8) Basophils/100 leukocytes in 0.2 % 0.0-0.79 Unspecified specimen (test code = 32122-8) [facility], [id number] 04:12:00 NeutrophilsBandLymphocyteAtypical LymphMonocyteEosinophilBasophilPlatelet EstimatePlatelet MorphologyTarget CellsToxic GranulationToxic Vacuolation [facility] CenterCB [facility] Auto Differential panel - [id number] 04:12:00 Test Item Value Reference Range Interpretation [...] fL 78-98 [Entitic volume] (test code = 07989-4) Erythrocyte mean corpuscular 31.3 pg 26.2-33.4 hemoglobin [Entitic mass] (test code = 37880-9) mean corpuscular HGB conc (test 33.0 g/dL 31.5-36.2 code = mean corpuscular HGB conc) red cell distribution width (test 11.3 % 11.5-15.5 L code = red cell distribution width) Platelets [#/volume] in Blood (test 221 K/uL 137-338 code = 41994-9) Platelet mean volume [Entitic 8.5 fL 8.4-11.8 volume] in Blood (test code = 83069-9) Neutrophils.band form/100 95.1 % 44.4-80.1 leukocytes in Blood (test code = 04164-5) Lymphocytes/100 leukocytes in Body 4.0 % 10.0-50.0 L fluid (test code = 16770-9) Monocytes/100 leukocytes in Blood 0.6 % 3.6-12.04 L by Automated count (test code = 5905-5) Eosinophils/100 leukocytes in Blood 0.1 % 0.0-5.41 by Automated count (test code = 713-8) Basophils/100 leukocytes in 0.2 % 0.0-0.79 Unspecified specimen (test code = 41055-6) [facility], [id number] 04:12:00 NeutrophilsBandLymphocyteAtypical LymphMonocyteEosinophilBasophilPlatelet EstimatePlatelet MorphologyTarget CellsToxic GranulationToxic Vacuolation [facility] W Auto Differential panel - [id number] 04:12:00 Test Item Value Reference Range Interpretation [...] fL 78-98 [Entitic volume] (test code = 81425-5) Erythrocyte mean corpuscular 31.3 pg 26.2-33.4 hemoglobin [Entitic mass] (test code = 57228-4) mean corpuscular HGB conc (test 33.0 g/dL 31.5-36.2 code = mean corpuscular HGB conc) red cell distribution width (test 11.3 % 11.5-15.5 L code = red cell distribution width) Platelets [#/volume] in Blood (test 221 K/uL 137-338 code = 45029-3) Platelet mean volume [Entitic 8.5 fL 8.4-11.8 volume] in Blood (test code = 76544-4) Neutrophils.band form/100 95.1 % 44.4-80.1 leukocytes in Blood (test code = 91452-6) Lymphocytes/100 leukocytes in Body 4.0 % 10.0-50.0 L fluid (test code = 47950-0) Monocytes/100 leukocytes in Blood 0.6 % 3.6-12.04 L by Automated count (test code = 5905-5) Eosinophils/100 leukocytes in Blood 0.1 % 0.0-5.41 by Automated count (test code = 713-8) Basophils/100 leukocytes in 0.2 % 0.0-0.79 Unspecified specimen (test code = 36330-0) [facility], [id number] 04:12:00 NeutrophilsBandLymphocyteAtypical LymphMonocyteEosinophilBasophilPlatelet EstimatePlatelet MorphologyTarget CellsToxic GranulationToxic Vacuolation [facility]CB W Auto Differential panel - [id number] 03:30:00 Test Item Value Reference Range Interpretation [...] fL 78-98 [Entitic volume] (test code = 47701-6) Erythrocyte mean corpuscular 31.2 pg 26.2-33.4 hemoglobin [Entitic mass] (test code = 83592-6) mean corpuscular HGB conc (test 32.6 g/dL 31.5-36.2 code = mean corpuscular HGB conc) red cell distribution width (test 11.2 % 11.5-15.5 L code = red cell distribution width) Platelets [#/volume] in Blood (test 184 K/uL 137-338 code = 28703-4) Platelet mean volume [Entitic 8.4 fL 8.4-11.8 volume] in Blood (test code = 92428-2) Neutrophils.band form/100 59.6 % 44.4-80.1 leukocytes in Blood (test code = 56381-6) Lymphocytes/100 leukocytes in Body 31.9 % 10.0-50.0 fluid (test code = 87488-5) Monocytes/100 leukocytes in Blood 5.9 % 3.6-12.04 by Automated count (test code = 5905-5) Eosinophils/100 leukocytes in Blood 1.0 % 0.0-5.41 by Automated count (test code = 713-8) Basophils/100 leukocytes in 1.5 % 0.0-0.79 H Unspecified specimen (test code = 52837-6) [facility], [id number] 03:30:00 NeutrophilsLymphocyteMonocytePlatelet EstimatePlatelet MorphologyMaTurning Point Mature Adult Care UnitComprehensive metabolic 2000 panel - Serum or [id number] 03:30:00 Test Item Value Reference Range Interpretation [...] Serum or Plasma (test code = 6768-6) [facility] W Auto Differential panel - [id number] 03:30:00 Test Item Value Reference Range Interpretation [...] fL 78-98 [Entitic volume] (test code = 80123-5) Erythrocyte mean corpuscular 31.2 pg 26.2-33.4 hemoglobin [Entitic mass] (test code = 57307-4) mean corpuscular HGB conc (test 32.6 g/dL 31.5-36.2 code = mean corpuscular HGB conc) red cell distribution width (test 11.2 % 11.5-15.5 L code = red cell distribution width) Platelets [#/volume] in Blood (test 184 K/uL 137-338 code = 87018-3) Platelet mean volume [Entitic 8.4 fL 8.4-11.8 volume] in Blood (test code = 08077-2) Neutrophils.band form/100 59.6 % 44.4-80.1 leukocytes in Blood (test code = 30076-6) Lymphocytes/100 leukocytes in Body 31.9 % 10.0-50.0 fluid (test code = 60011-6) Monocytes/100 leukocytes in Blood 5.9 % 3.6-12.04 by Automated count (test code = 5905-5) Eosinophils/100 leukocytes in Blood 1.0 % 0.0-5.41 by Automated count (test code = 713-8) Basophils/100 leukocytes in 1.5 % 0.0-0.79 H Unspecified specimen (test code = 25280-0) [facility]different[facility], [id number] 03:30:00 NeutrophilsLymphocyteMonocytePlatelet EstimatePlatelet MorphologyMaTurning Point Mature Adult Care UnitComprehensive metabolic 2000 panel - Serum or [id number] 03:30:00 Test Item Value Reference Range Interpretation [...] Serum or Plasma (test code = 6768-6) [facility] W Auto Differential panel - [id number] 03:30:00 Test Item Value Reference Range Interpretation [...] fL 78-98 [Entitic volume] (test code = 21837-0) Erythrocyte mean corpuscular 31.2 pg 26.2-33.4 hemoglobin [Entitic mass] (test code = 65869-1) mean corpuscular HGB conc (test 32.6 g/dL 31.5-36.2 code = mean corpuscular HGB conc) red cell distribution width (test 11.2 % 11.5-15.5 L code = red cell distribution width) Platelets [#/volume] in Blood (test 184 K/uL 137-338 code = 71972-7) Platelet mean volume [Entitic 8.4 fL 8.4-11.8 volume] in Blood (test code = 57639-3) Neutrophils.band form/100 59.6 % 44.4-80.1 leukocytes in Blood (test code = 30526-3) Lymphocytes/100 leukocytes in Body 31.9 % 10.0-50.0 fluid (test code = 84203-5) Monocytes/100 leukocytes in Blood 5.9 % 3.6-12.04 by Automated count (test code = 5905-5) Eosinophils/100 leukocytes in Blood 1.0 % 0.0-5.41 by Automated count (test code = 713-8) Basophils/100 leukocytes in 1.5 % 0.0-0.79 H Unspecified specimen (test code = 14423-1) [facility]different[facility], [id number] 03:30:00 NeutrophilsLymphocyteMonocytePlatelet EstimatePlatelet MorphologySouth Central Regional Medical CenterComprehensive metabolic 2000 panel - Serum or [id number] 03:30:00 Test Item Value Reference Range Interpretation [...] Serum or Plasma (test code = 6768-6) [facility] W Auto Differential panel - [id number] 12:57:00 Test Item Value Reference Range Interpretation Comments white blood count (test code = 4.5 K/uL 4.0-11.5 white blood count) red blood count (test code = red 4.04 M/uL 3.80-5.20 blood count) Hemoglobin [Mass/volume] in Blood 12.7 g/dL 10.5-15.7 (test code = 718-7) hematocrit (test code = hematocrit) 38.3 % 34.0-50.0 Erythrocyte mean corpuscular volume 94.8 fL 78-98 [Entitic volume] (test code = 48129-4) Erythrocyte mean corpuscular 31.5 pg 26.2-33.4 hemoglobin [Entitic mass] (test code = 53857-0) mean corpuscular HGB conc (test 33.2 g/dL 31.5-36.2 code = mean corpuscular HGB conc) red cell distribution width (test 11.2 % 11.5-15.5 L code = red cell distribution width) Platelets [#/volume] in Blood (test 261 K/uL 137-338 code = 55010-6) Platelet mean volume [Entitic 9.0 fL 8.4-11.8 volume] in Blood (test code = 59615-5) Neutrophils.band form/100 67.1 % 44.4-80.1 leukocytes in Blood (test code = 26918-3) Lymphocytes/100 leukocytes in Body 24.5 % 10.0-50.0 fluid (test code = 10279-1) Monocytes/100 leukocytes in Blood 6.1 % 3.6-12.04 by Automated count (test code = 5905-5) Eosinophils/100 leukocytes in Blood 0.4 % 0.0-5.41 by Automated count (test code = 713-8) Basophils/100 leukocytes in 1.9 % 0.0-0.79 H Unspecified specimen (test code = 26291-5) [facility]different[facility], [id number] 12:57:00 NeutrophilsLymphocyteMonocytePlatelet EstimatePlatelet MorphologyMaTurning Point Mature Adult Care UnitComprehensive metabolic 2000 panel - Serum or [id number] 12:57:00 Test Item Value Reference Range Interpretation [...] Serum or Plasma (test code = 6768-6) [facility] W Auto Differential panel - [id number] 12:57:00 Test Item Value Reference Range Interpretation Comments white blood count (test code = 4.5 K/uL 4.0-11.5 white blood count) red blood count (test code = red 4.04 M/uL 3.80-5.20 blood count) Hemoglobin [Mass/volume] in Blood 12.7 g/dL 10.5-15.7 (test code = 718-7) hematocrit (test code = hematocrit) 38.3 % 34.0-50.0 Erythrocyte mean corpuscular volume 94.8 fL 78-98 [Entitic volume] (test code = 79899-1) Erythrocyte mean corpuscular 31.5 pg 26.2-33.4 hemoglobin [Entitic mass] (test code = 31802-2) mean corpuscular HGB conc (test 33.2 g/dL 31.5-36.2 code = mean corpuscular HGB conc) red cell distribution width (test 11.2 % 11.5-15.5 L code = red cell distribution width) Platelets [#/volume] in Blood (test 261 K/uL 137-338 code = 33323-1) Platelet mean volume [Entitic 9.0 fL 8.4-11.8 volume] in Blood (test code = 58506-1) Neutrophils.band form/100 67.1 % 44.4-80.1 leukocytes in Blood (test code = 58834-8) Lymphocytes/100 leukocytes in Body 24.5 % 10.0-50.0 fluid (test code = 82502-1) Monocytes/100 leukocytes in Blood 6.1 % 3.6-12.04 by Automated count (test code = 5905-5) Eosinophils/100 leukocytes in Blood 0.4 % 0.0-5.41 by Automated count (test code = 713-8) Basophils/100 leukocytes in 1.9 % 0.0-0.79 H Unspecified specimen (test code = 63121-5) [facility]different[facility], [id number] 12:57:00 NeutrophilsLymphocyteMonocytePlatelet EstimatePlatelet MorphologyMaTurning Point Mature Adult Care UnitComprehensive metabolic 2000 panel - Serum or [id number] 12:57:00 Test Item Value Reference Range Interpretation [...] Serum or Plasma (test code = 6768-6) [facility] W Auto Differential panel - [id number] 12:57:00 Test Item Value Reference Range Interpretation Comments white blood count (test code = 4.5 K/uL 4.0-11.5 white blood count) red blood count (test code = red 4.04 M/uL 3.80-5.20 blood count) Hemoglobin [Mass/volume] in Blood 12.7 g/dL 10.5-15.7 (test code = 718-7) hematocrit (test code = hematocrit) 38.3 % 34.0-50.0 Erythrocyte mean corpuscular volume 94.8 fL 78-98 [Entitic volume] (test code = 80951-2) Erythrocyte mean corpuscular 31.5 pg 26.2-33.4 hemoglobin [Entitic mass] (test code = 70997-3) mean corpuscular HGB conc (test 33.2 g/dL 31.5-36.2 code = mean corpuscular HGB conc) red cell distribution width (test 11.2 % 11.5-15.5 L code = red cell distribution width) Platelets [#/volume] in Blood (test 261 K/uL 137-338 code = 50861-7) Platelet mean volume [Entitic 9.0 fL 8.4-11.8 volume] in Blood (test code = 56561-0) Neutrophils.band form/100 67.1 % 44.4-80.1 leukocytes in Blood (test code = 65410-4) Lymphocytes/100 leukocytes in Body 24.5 % 10.0-50.0 fluid (test code = 49984-6) Monocytes/100 leukocytes in Blood 6.1 % 3.6-12.04 by Automated count (test code = 5905-5) Eosinophils/100 leukocytes in Blood 0.4 % 0.0-5.41 by Automated count (test code = 713-8) Basophils/100 leukocytes in 1.9 % 0.0-0.79 H Unspecified specimen (test code = 62495-9) [facility]different[facility], [id number] 12:57:00 NeutrophilsLymphocyteMonocytePlatelet EstimatePlatelet MorphologySouth Central Regional Medical CenterComprehensive metabolic 2000 panel - Serum or [id number] 12:57:00 Test Item Value Reference Range Interpretation [...] Serum or Plasma (test code = 6768-6) [facility] CenterUrinalysis macro (dipstick) panel - [id number] 12:22:43 Test Item Value Reference Range Interpretation Comments Leukocytes (test code = Trace Leukocytes) Nitrite (test code = Nitrite) positive Urobilinogen (test code = 8 Urobilinogen) Protein (test code = Protein) 100 pH (test code = pH) 6.0 Blood (test code = Blood) Negative Specific [place] (test code = 1.020 Specific [place]) Ketone (test code = Ketone) Large (80) Bilirubin (test code = Bilirubin) Large Glucose (test code = Glucose) Negative Appearance (test code = Clear Appearance) Color (test code = Color) Dark Yellow [facility] CenterUrinalysis macro (dipstick) panel - [id number] 12:22:43 Test Item Value Reference Range Interpretation Comments Leukocytes (test code = Trace Leukocytes) Nitrite (test code = Nitrite) positive Urobilinogen (test code = 8 Urobilinogen) Protein (test code = Protein) 100 pH (test code = pH) 6.0 Blood (test code = Blood) Negative Specific [place] (test code = 1.020 Specific [place]) Ketone (test code = Ketone) Large (80) Bilirubin (test code = Bilirubin) Large Glucose (test code = Glucose) Negative Appearance (test code = Clear Appearance) Color (test code = Color) Dark Yellow [facility] CenterUrinalysis macro (dipstick) panel - [id number] 12:22:43 Test Item Value Reference Range Interpretation Comments Leukocytes (test code = Trace Leukocytes) Nitrite (test code = Nitrite) positive Urobilinogen (test code = 8 Urobilinogen) Protein (test code = Protein) 100 pH (test code = pH) 6.0 Blood (test code = Blood) Negative Specific [place] (test code = 1.020 Specific [place]) Ketone (test code = Ketone) Large (80) Bilirubin (test code = Bilirubin) Large Glucose (test code = Glucose) Negative Appearance (test code = Clear Appearance) Color (test code = Color) Dark Yellow [facility] CenterUrinalysis macro (dipstick) panel - [id number] 12:22:43 Test Item Value Reference Range Interpretation Comments Leukocytes (test code = Trace Leukocytes) Nitrite (test code = Nitrite) positive Urobilinogen (test code = 8 Urobilinogen) Protein (test code = Protein) 100 pH (test code = pH) 6.0 Blood (test code = Blood) Negative Specific [place] (test code = 1.020 Specific [place]) Ketone (test code = Ketone) Large (80) Bilirubin (test code = Bilirubin) Large Glucose (test code = Glucose) Negative Appearance (test code = Clear Appearance) Color (test code = Color) Dark Yellow [facility] CenterUrinalysis macro (dipstick) panel - [id number] 12:22:43 Test Item Value Reference Range Interpretation Comments Leukocytes (test code = Trace Leukocytes) Nitrite (test code = Nitrite) positive Urobilinogen (test code = 8 Urobilinogen) Protein (test code = Protein) 100 pH (test code = pH) 6.0 Blood (test code = Blood) Negative Specific [place] (test code = 1.020 Specific [place]) Ketone (test code = Ketone) Large (80) Bilirubin (test code = Bilirubin) Large Glucose (test code = Glucose) Negative Appearance (test code = Clear Appearance) Color (test code = Color) Dark Yellow [facility] CenterHemoglobin and Hematocrit panel - [id number] 06:06:00 Test Item Value Reference Range Interpretation Comments Hemoglobin [Mass/volume] in Blood 13.1 g/dL 10.5-15.7 (test code = 718-7) hematocrit (test code = hematocrit) 39.2 % 34.0-50.0 [facility] CenterComprehensive metabolic 2000 panel - Serum or Plasma [...] Serum or Plasma (test code = 6768-6) [facility] CenterHemoglobin [facility] Hematocrit panel - [id number] 06:06:00 Test Item Value Reference Range Interpretation Comments Hemoglobin [Mass/volume] in Blood 13.1 g/dL 10.5-15.7 (test code = 718-7) hematocrit (test code = hematocrit) 39.2 % 34.0-50.0 [facility] CenterComprehensive metabolic 2000 panel - Serum or Plasma [...] Serum or Plasma (test code = 6768-6) [facility] CenterHemoglobin [facility] Hematocrit panel - [id number] 06:06:00 Test Item Value Reference Range Interpretation Comments Hemoglobin [Mass/volume] in Blood 13.1 g/dL 10.5-15.7 (test code = 718-7) hematocrit (test code = hematocrit) 39.2 % 34.0-50.0 [facility] CenterComprehensive metabolic 2000 panel - Serum or Plasma [...] Serum or Plasma (test code = 6768-6) [facility] CenterHemoglobin [facility] Hematocrit panel - [id number] 08:02:00 Test Item Value Reference Range Interpretation Comments Hemoglobin [Mass/volume] in Blood 11.9 g/dL 10.5-15.7 (test code = 718-7) hematocrit (test code = hematocrit) 34.5 % 34.0-50.0 [facility] CenterComprehensive metabolic 2000 panel - Serum or Plasma [...] Serum or Plasma (test code = 6768-6) [facility] CenterHemoglobin [facility] Hematocrit panel - [id number] 08:02:00 Test Item Value Reference Range Interpretation Comments Hemoglobin [Mass/volume] in Blood 11.9 g/dL 10.5-15.7 (test code = 718-7) hematocrit (test code = hematocrit) 34.5 % 34.0-50.0 [facility] CenterComprehensive [facility] 2000 panel - Serum or Plasma [...] Serum or Plasma (test code = 6768-6) [facility] CenterHemoglobin [facility] Hematocrit panel - [id number] 08:02:00 Test Item Value Reference Range Interpretation Comments Hemoglobin [Mass/volume] in Blood 11.9 g/dL 10.5-15.7 (test code = 718-7) hematocrit (test code = hematocrit) 34.5 % 34.0-50.0 [facility] CenterComprehensive [facility] 2000 panel - Serum or Plasma [...] Serum or Plasma (test code = 6768-6) [facility] W Auto Differential panel - [id number] 02:57:00 Test Item Value Reference Range Interpretation Comments white blood count (test code = 5.1 K/uL 4.0-11.5 white blood count) red blood count (test code = red 4.29 M/uL 3.80-5.20 blood count) Hemoglobin [Mass/volume] in Blood 14.0 g/dL 10.5-15.7 (test code = 718-7) hematocrit (test code = hematocrit) 41.3 % 34.0-50.0 Erythrocyte mean corpuscular volume 96.3 fL 78-98 [Entitic volume] (test code = 57698-3) Erythrocyte mean corpuscular 32.6 pg 26.2-33.4 hemoglobin [Entitic mass] (test code = 73924-9) mean corpuscular HGB conc (test 33.9 g/dL 31.5-36.2 code = mean corpuscular HGB conc) red cell distribution width (test 10.3 % 11.5-15.5 L code = red cell distribution width) Platelets [#/volume] in Blood (test 216 K/uL 137-338 code = 72613-7) Platelet mean volume [Entitic 9.2 fL 8.4-11.8 volume] in Blood (test code = 68721-1) Neutrophils.band form/100 69.8 % 44.4-80.1 leukocytes in Blood (test code = 22299-3) Lymphocytes/100 leukocytes in Body 22.0 % 10.0-50.0 fluid (test code = 07004-2) Monocytes/100 leukocytes in Blood 6.1 % 3.6-12.04 by Automated count (test code = 5905-5) Eosinophils/100 leukocytes in Blood 0.3 % 0.0-5.41 by Automated count (test code = 713-8) Basophils/100 leukocytes in Blood 1.8 % 0.0-0.79 H by Automated count (test code = 706-2) [facility]different[facility], [id number] 02:57:00 NeutrophilsBandLymphocyteAtypical LymphMonocyteEosinophilBasophilPlatelet EstimatePlatelet MorphologyPoikilocytosisTarget CellsHypersegmented PolysRouleauToxic VacuolationSmudge CellsSouth [facility] CenterComprehensive metabolic 2000 panel - Serum or [id number] 02:57:00 Test Item Value Reference Range Interpretation [...] Serum or Plasma (test code = 6768-6) [facility] CenterCBC [facility] Auto Differential panel - [id number] 02:57:00 Test Item Value Reference Range Interpretation Comments white blood count (test code = 5.1 K/uL 4.0-11.5 white blood count) red blood count (test code = red 4.29 M/uL 3.80-5.20 blood count) Hemoglobin [Mass/volume] in Blood 14.0 g/dL 10.5-15.7 (test code = 718-7) hematocrit (test code = hematocrit) 41.3 % 34.0-50.0 Erythrocyte mean corpuscular volume 96.3 fL 78-98 [Entitic volume] (test code = 37976-1) Erythrocyte mean corpuscular 32.6 pg 26.2-33.4 hemoglobin [Entitic mass] (test code = 63675-6) mean corpuscular HGB conc (test 33.9 g/dL 31.5-36.2 code = mean corpuscular HGB conc) red cell distribution width (test 10.3 % 11.5-15.5 L code = red cell distribution width) Platelets [#/volume] in Blood (test 216 K/uL 137-338 code = 06983-6) Platelet mean volume [Entitic 9.2 fL 8.4-11.8 volume] in Blood (test code = 65477-7) Neutrophils.band form/100 69.8 % 44.4-80.1 leukocytes in Blood (test code = 24130-2) Lymphocytes/100 leukocytes in Body 22.0 % 10.0-50.0 fluid (test code = 55020-9) Monocytes/100 leukocytes in Blood 6.1 % 3.6-12.04 by Automated count (test code = 5905-5) Eosinophils/100 leukocytes in Blood 0.3 % 0.0-5.41 by Automated count (test code = 713-8) Basophils/100 leukocytes in Blood 1.8 % 0.0-0.79 H by Automated count (test code = 706-2) [facility]different[facility], [id number] 02:57:00 NeutrophilsBandLymphocyteAtypical LymphMonocyteEosinophilBasophilPlatelet EstimatePlatelet MorphologyPoikilocytosisTarget CellsHypersegmented PolysRouleauToxic VacuolationSmudge CellsMatagorda Medical GroupComprehensive metabolic 2000 panel - Serum or [id number] 02:57:00 Test Item Value Reference Range Interpretation [...] Serum or Plasma (test code = 6768-6) [facility] CenterCB W Auto Differential panel - [id number] 02:57:00 Test Item Value Reference Range Interpretation Comments white blood count (test code = 5.1 K/uL 4.0-11.5 white blood count) red blood count (test code = red 4.29 M/uL 3.80-5.20 blood count) Hemoglobin [Mass/volume] in Blood 14.0 g/dL 10.5-15.7 (test code = 718-7) hematocrit (test code = hematocrit) 41.3 % 34.0-50.0 Erythrocyte mean corpuscular volume 96.3 fL 78-98 [Entitic volume] (test code = 46856-3) Erythrocyte mean corpuscular 32.6 pg 26.2-33.4 hemoglobin [Entitic mass] (test code = 74949-7) mean corpuscular HGB conc (test 33.9 g/dL 31.5-36.2 code = mean corpuscular HGB conc) red cell distribution width (test 10.3 % 11.5-15.5 L code = red cell distribution width) Platelets [#/volume] in Blood (test 216 K/uL 137-338 code = 75479-6) Platelet mean volume [Entitic 9.2 fL 8.4-11.8 volume] in Blood (test code = 99749-9) Neutrophils.band form/100 69.8 % 44.4-80.1 leukocytes in Blood (test code = 22605-5) Lymphocytes/100 leukocytes in Body 22.0 % 10.0-50.0 fluid (test code = 93145-9) Monocytes/100 leukocytes in Blood 6.1 % 3.6-12.04 by Automated count (test code = 5905-5) Eosinophils/100 leukocytes in Blood 0.3 % 0.0-5.41 by Automated count (test code = 713-8) Basophils/100 leukocytes in Blood 1.8 % 0.0-0.79 H by Automated count (test code = 706-2) [facility], [id number] 02:57:00 NeutrophilsBandLymphocyteAtypical LymphMonocyteEosinophilBasophilPlatelet EstimatePlatelet MorphologyPoikilocytosisTarget CellsHypersegmented PolysRouleauToxic VacuolationSmudge CellsMataMississippi Baptist Medical CenterComprehensive metabolic 2000 panel - Serum or Vlhosu0438-02-05 02:57:00 Test Item Value Reference Range Interpretation [...] Serum or Plasma (test code = 6768-6) [facility] W Auto Differential panel - [id number] 07:30:00 Test Item Value Reference Range Interpretation [...] 78-98 H [Entitic volume] (test code = 08714-7) Erythrocyte mean corpuscular 33.0 pg 26.2-33.4 hemoglobin [Entitic mass] (test code = 15939-2) mean corpuscular HGB conc (test 33.4 g/dL 31.5-36.2 code = mean corpuscular HGB conc) red cell distribution width (test 11.3 % 11.5-15.5 L code = red cell distribution width) Platelets [#/volume] in Blood (test 207 K/uL 137-338 code = 00694-6) Platelet mean volume [Entitic 7.7 fL 8.4-11.8 L volume] in Blood (test code = 49255-0) Neutrophils.band form/100 54.8 % 44.4-80.1 leukocytes in Blood (test code = 66238-6) Lymphocytes/100 leukocytes in Body 35.5 % 10.0-50.0 fluid (test code = 10806-7) Monocytes/100 leukocytes in Blood 6.5 % 3.6-12.04 by Automated count (test code = 5905-5) Eosinophils/100 leukocytes in Blood 1.4 % 0.0-5.41 by Automated count (test code = 713-8) Basophils/100 leukocytes in Blood 1.7 % 0.0-0.79 H by Automated count (test code = 706-2) [facility], [id number] 07:30:00 NeutrophilsBandLymphocyteMonocytePlatelet EstimateMatagoWinston Medical CenterRubella virus IgG Ab [Titer] in Asenc0366-17-07 07:30:00 Test Item Value Reference Range Interpretation Comments Rubella virus IgG Ab 106.7 [IU]/mL [Units/volume] in Serum by Immunoassay (test code = 5334-8) [facility] CenterHIV 1+2 Ab [Presence] in Njdao5396-69-80 07:30:00HIV P24 AgHIV-1/2 AbMataMississippi Baptist Medical CenterABO & Rh group [Type] in [id number] 07:30:00 Test Item Value Reference Range Interpretation Comments Rh [Type] in Blood (test code = 4+ 77001-5) ABO and Rh group panel - Blood Ab positive (test code = 22782-3) [facility] CenterBlood group antibody screen [Presence] in Serum or Plasma 2019-01-26 07:30:00 Test Item Value Reference Range Interpretation Comments Blood group antibody screen negative [Presence] in Serum or Plasma (test code = 890-4) [facility] CenterReagin Ab [Presence] in Serum by [id number] 07:30:00 Test Item Value Reference Range Interpretation Comments Reagin Ab [Presence] in Serum by nonreactive nonreactive RPR (test code = 98597-6) [facility] CenterHepatitis B virus surface Ag [Presence] in Serum 2019-01-26 07:30:00 Test Item Value Reference Range Interpretation Comments .hepatitis B surface antigen (test negative negative code = .hepatitis B surface antigen) [facility] CenterBacteria identified in Urine by Kscwlxm6024-11-94 07:30:00 Test Item Value Reference Range Interpretation Comments Bacteria identified in no growth at 48 hrs. Urine by Culture (test code = 630-4) [facility] CenterCB W Auto Differential panel - [id number] 07:30:00 Test Item Value Reference Range Interpretation [...] 78-98 H [Entitic volume] (test code = 07162-5) Erythrocyte mean corpuscular 33.0 pg 26.2-33.4 hemoglobin [Entitic mass] (test code = 25873-7) mean corpuscular HGB conc (test 33.4 g/dL 31.5-36.2 code = mean corpuscular HGB conc) red cell distribution width (test 11.3 % 11.5-15.5 L code = red cell distribution width) Platelets [#/volume] in Blood (test 207 K/uL 137-338 code = 54620-9) Platelet mean volume [Entitic 7.7 fL 8.4-11.8 L volume] in Blood (test code = 36027-4) Neutrophils.band form/100 54.8 % 44.4-80.1 leukocytes in Blood (test code = 92219-7) Lymphocytes/100 leukocytes in Body 35.5 % 10.0-50.0 fluid (test code = 49591-1) Monocytes/100 leukocytes in Blood 6.5 % 3.6-12.04 by Automated count (test code = 5905-5) Eosinophils/100 leukocytes in Blood 1.4 % 0.0-5.41 by Automated count (test code = 713-8) Basophils/100 leukocytes in Blood 1.7 % 0.0-0.79 H by Automated count (test code = 706-2) [facility] Centerdifferential panel, [id number] 07:30:00 NeutrophilsBandLymphocyteMonocytePlatelet EstimateMaTurning Point Mature Adult Care UnitRubella virus IgG Ab [Titer] in Rdart4185-12-32 07:30:00 Test Item Value Reference Range Interpretation Comments Rubella virus IgG Ab 106.7 [IU]/mL [Units/volume] in Serum by Immunoassay (test code = 5334-8) [facility] CenterHIV 1+2 Ab [Presence] in Ndfwi5367-73-63 07:30:00HIV P24 AgHIV-1/2 AbMaTurning Point Mature Adult Care UnitABO & Rh group [Type] in Regod3556-49-90 07:30:00 Test Item Value Reference Range Interpretation Comments Rh [Type] in Blood (test code = 4+ 84889-2) ABO and Rh group panel - Blood Ab positive (test code = 45522-4) [facility] CenterBlood group antibody screen [Presence] in Serum or Plasma 2019-01-26 07:30:00 Test Item Value Reference Range Interpretation Comments Blood group antibody screen negative [Presence] in Serum or Plasma (test code = 890-4) [facility] CenterReagin Ab [Presence] in Serum by [id number] 07:30:00 Test Item Value Reference Range Interpretation Comments Reagin Ab [Presence] in Serum by nonreactive nonreactive RPR (test code = 99472-9) [facility] CenterHepatitis B virus surface Ag [Presence] in Serum 2019-01-26 07:30:00 Test Item Value Reference Range Interpretation Comments .hepatitis B surface antigen (test negative negative code = .hepatitis B surface antigen) [facility] CenterBacteria identified in Urine by Iqtgrfs2167-70-84 07:30:00 Test Item Value Reference Range Interpretation Comments Bacteria identified in no growth at 48 hrs. Urine by Culture (test code = 630-4) [facility] W Auto Differential panel - [id number] 07:30:00 Test Item Value Reference Range Interpretation [...] 78-98 H [Entitic volume] (test code = 34045-0) Erythrocyte mean corpuscular 33.0 pg 26.2-33.4 hemoglobin [Entitic mass] (test code = 63875-0) mean corpuscular HGB conc (test 33.4 g/dL 31.5-36.2 code = mean corpuscular HGB conc) red cell distribution width (test 11.3 % 11.5-15.5 L code = red cell distribution width) Platelets [#/volume] in Blood (test 207 K/uL 137-338 code = 53839-7) Platelet mean volume [Entitic 7.7 fL 8.4-11.8 L volume] in Blood (test code = 11402-9) Neutrophils.band form/100 54.8 % 44.4-80.1 leukocytes in Blood (test code = 10790-5) Lymphocytes/100 leukocytes in Body 35.5 % 10.0-50.0 fluid (test code = 60242-0) Monocytes/100 leukocytes in Blood 6.5 % 3.6-12.04 by Automated count (test code = 5905-5) Eosinophils/100 leukocytes in Blood 1.4 % 0.0-5.41 by Automated count (test code = 713-8) Basophils/100 leukocytes in Blood 1.7 % 0.0-0.79 H by Automated count (test code = 706-2) [facility] Centerdifferential panel, [id number] 07:30:00 NeutrophilsBandLymphocyteMonocytePlatelet EstimateMaTurning Point Mature Adult Care UnitRubella virus Ab [Titer] in [id number] 07:30:00 Test Item Value Reference Range Interpretation Comments Rubella virus IgG Ab 106.7 [IU]/mL [Units/volume] in Serum by Immunoassay (test code = 5334-8) [facility] CenterHIV 1+2 Ab [Presence] in Vnajj3446-46-37 07:30:00HIV P24 AgHIV-1/2 AbMaTurning Point Mature Adult Care UnitABO & Rh group [Type] in Ilrym7710-79-25 07:30:00 Test Item Value Reference Range Interpretation Comments Rh [Type] in Blood (test code = 4+ 66168-9) ABO and Rh group panel - Blood Ab positive (test code = 86652-9) [facility] CenterBlood group antibody screen [Presence] in Serum or Plasma 2019-01-26 07:30:00 Test Item Value Reference Range Interpretation Comments Blood group antibody screen negative [Presence] in Serum or Plasma (test code = 890-4) [facility] CenterReagin Ab [Presence] in Serum by [id number] 07:30:00 Test Item Value Reference Range Interpretation Comments Reagin Ab [Presence] in Serum by nonreactive nonreactive RPR (test code = 19505-7) [facility] CenterHepatitis B virus surface Ag [Presence] in Serum 2019-01-26 07:30:00 Test Item Value Reference Range Interpretation Comments .hepatitis B surface antigen (test negative negative code = .hepatitis B surface antigen) [facility] CenterBacteria identified in Urine by Fvfngst2478-33-47 07:30:00 Test Item Value Reference Range Interpretation Comments Bacteria identified in no growth at 48 hrs. Urine by Culture (test code = 630-4) [facility] Centergofairfax hospitaltropin.beta subunit [Units/volume] in Serum or Zhmyjz8946-78-78 02:05:00 Test Item Value Reference Range Interpretation Comments HCG quantitative (test code = 4590.0 mIU/mL 0-5 H HCG quantitative) [facility] CenterChoclaysburggodotropin.beta subunit [Units/volume] in Serum or Qpdtih0410-66-40 02:05:00 Test Item Value Reference Range Interpretation Comments HCG quantitative (test code = 4590.0 mIU/mL 0-5 H HCG quantitative) [facility] Centertropin.beta subunit [Units/volume] in Serum or Khgcmu5231-21-34 02:05:00 Test Item Value Reference Range Interpretation Comments HCG quantitative (test code = 4590.0 mIU/mL 0-5 H HCG quantitative) [facility] W Auto Differential panel - [id number] 11:00:00 Test Item Value Reference Range Interpretation [...] 78-98 H [Entitic volume] (test code = 65888-5) Erythrocyte mean corpuscular 32.4 pg 26.2-33.4 hemoglobin [Entitic mass] (test code = 40433-3) mean corpuscular HGB conc (test 32.5 g/dL 31.5-36.2 code = mean corpuscular HGB conc) red cell distribution width (test 11.4 % 11.5-15.5 L code = red cell distribution width) Platelets [#/volume] in Blood (test 212 K/uL 137-338 code = 01736-0) Platelet mean volume [Entitic 8.4 fL 8.4-11.8 volume] in Blood (test code = 09046-2) Neutrophils.band form/100 53.6 % 44.4-80.1 leukocytes in Blood (test code = 40537-4) Lymphocytes/100 leukocytes in Body 37.4 % 10.0-50.0 fluid (test code = 68229-2) Monocytes/100 leukocytes in Blood 5.5 % 3.6-12.04 by Automated count (test code = 5905-5) Eosinophils/100 leukocytes in Blood 1.9 % 0.0-5.41 by Automated count (test code = 713-8) Basophils/100 leukocytes in Blood 1.6 % 0.0-0.79 H by Automated count (test code = 706-2) [facility] Centerdifferential panel, [id number] 11:00:00 NeutrophilsBandLymphocyteMonocyteEosinophilBasophilPlatelet EstimatePlatelet MorphologyPolychromasiaHypochromasiaPoikilocytosisBasophilic StipplingAnisocytosisMicrocytosisMacrocytosisOvalocytesStomatocyteBurr CellsAcanthocytesMaTurning Point Mature Adult Care UnitReagin Ab [Presence] in Serum by RPR 2019-01-03 11:00:00 Test Item Value Reference Range Interpretation Comments Reagin Ab [Presence] in Serum by nonreactive nonreactive RPR (test code = 49318-0) [facility] CenterComprehensive metabolic 2000 panel - Serum or Plasma [...] Serum or Plasma (test code = 6768-6) [facility] CenterHIV 1+2 Ab [Presence] in Ifbwb7899-00-14 11:00:00HIV P24 AgHIV-1/2 AbMaTurning Point Mature Adult Care UnitHepatitis B virus surface Ag [Presence] in Bsdlc7469-79-41 11:00:00 Test Item Value Reference Range Interpretation Comments .hepatitis B surface antigen (test negative negative code = .hepatitis B surface antigen) [facility] Notes Date/Time Note Provider Source 2019-08-29 21:34:00-00:00 [facility] OB Disch REPORT#:[id number] REPORT STATUS: Signed DATE:08/29/19 TIME: 2133 PATIENT: ANJELICA NAVARRO UNIT #: [id number] ROOM/BED: 4- : 90 AGE: 29 SEX: F ATTEND: Isaiah Chase MD ADM AUTHOR: Isaiah Chase MD * ALL edits or amendments must be made on the Wetradetogether/computer document * Subjective Subjective Patient reports: Patient reports: Yes: normal lochia, pain management effective, tolerating po well, voiding well, flatus. No: complaints. Comments: seen around 8am Objective General VS: Vital Signs Date Temp Pulse Resp B/P B/P Mean Pulse Ox FiO2 08/29 98.2-99.0 89-108 18- 113-131/76-81 88.2 -97.7 Last Documented: Result Date Time B/P 113/77 08/29 1715 Temp 98.2 08/29 1715 Pulse 89 08/29 [...] Isaiah Chase MD on 08/29 at 2137 RPT #:[id number] END OF REPORT 2019-08-29 19:07:00-00:00 [id number] [facility] [address], [place] [address] PATIENT NAME: ANJELICA NAVARRO ADMIT DATE: 08/02/19 ACCOUNT NO: [id number] ROOM NO: .2023 AGE: 29 SEX: F [...] section via Pfannenstiel. SURGEON: Isaiah Chase MD MALT HOUSE LOADER: Cyndi Jarvis SA COMPLICATIONS: None. ESTIMATED BLOOD LOSS: 600 mL. INTRAVENOUS FLUIDS: 1000 mL LR. URINE OUTPUT: Clear at the end of the procedure. FINDINGS: Male , cephalic presentation, Ap gars 8 and 9. Weight 1920 grams, to NICU. Placenta 3-vessel cord intact. U terus, tubes, and ovaries looked normal. PROCEDURE IN DETAIL: After t he risks, benefits, alternatives, and the nature of [...] The bladder blade was inserted. PATIENT NAME: ANJELICA NAVARRO 092 The vesicouterine peritoneu m was entered with [...] By: Isaiah Chase MD WT: OP:FVIVI/SHANIA/ROMAN Conf#: [id number]/DID#: [id number] Authenticated by Isaiah Chase MD On 09/27/2019 0 6:43:29 AM Electronically Signed by Isaiah Chase MD on 09/09 at 0643 PATIENT NAME: ANJELICA NAVARRO [id number] 21:20:00-00:00 [facility] ([facility]) OB Postpart Progr Note REPORT#:[id number] REPORT STATUS: Signed DATE:08/28/19 TIME: 2119 PATIENT: ANJELICA NAVARRO UNIT #: [id number] ROOM/BED: : 90 AGE: 29 SEX: F ATTEND: Isaiah Chase MD ADM AUTHOR: Isaiah Chase MD * ALL edits or amendments must be made on the Wetradetogether/Noknoker document * Subjective Subjective Patient reports: Patient reports: Yes: normal lochia, pain management effective, tolerating po well, voiding well, tolerating ambulation, flatus. No: complai nts. Objective General VS: Vital Signs Date Temp Pulse Resp B/P B/P Mean Pulse Ox FiO 2 08/28 98.0-98.8 87-110 97-115/66-77 76.1 Last Documented: [...] Chase MD on 08/28 at 0 RPT #:[id number] END OF REPORT 2019-08-27 16:35:00-00:00 [facility] ([facility]) OB Postpart Progr Note REPORT#:[id number] REPORT STATUS: Signed DATE:08/27/19 TIME: 1634 PATIENT: ANJELICA NAVARRO UNIT #: [id number] ROOM/BED: 2024-A : 90 AGE: 29 SEX: F ATTEND: [...] Isaiah Chase MD on 08/27 at 1635 [facility] #:[id number] END OF REPORT 2019-08-25 20:54:00-00:00 [facility] ([facility]) OB Antepartum Prog Note REPORT#:[id number] REPORT STATUS: Signed DATE:08/25/19 TIME: 2053 PATIENT: ANJELICA NAVARRO UNIT #: [id number] ROOM/BED: 3212-A : 90 AGE: 29 SEX: F ATTEND: Isaiah Chase MD ADM AUTHOR: Isaiah Chase MD * ALL edits or amendments must be made on the Wetradetogether/Noknoker document * Subjective Subjective Patient reports: Patient [...] Ox FiO2 08/24-08/25 98.2-98.3 77-83 18 110-116/69 84.0 -87.0 Patient Weight Weight (lb): 128 Weight (oz): [...] Chase MD on 08/25 at 2100 RPT #:[id number] END OF REPORT 2019-08-24 20:53:00-00:00 [facility] ([facility]) OB Antepartum Prog Note REPORT#:[id number] REPORT STATUS: Signed DATE:08/24/19 TIME: 2052 PATIENT: ANJELICA NAVARRO UNIT #: [id number] ROOM/BED: [address] : 90 AGE: 29 SEX: F ATTEND: Isaiah Chase MD ADM AUTHOR: Isaiah Chase MD * ALL edits or amendments must be made on the Wetradetogether/Noknoker document * Subjective Subjective Patient reports: Patient reports: Yes normal movement, No no complaints, No abdominal pain, No vaginal bleeding, No leaking fluid, No contractions Comments: SEEN AROUND 8AM Objective General VS: Last Documented: Result Date Time Temp 98.2 08/24 0916 Resp 18 08/24 0916 B/P Mean 93.0 08/24 0916 B/P 120/76 08/24 09 Pulse 84 08/24 09 Pulse Ox 97 [...] FOR NON REASSURING TESTING, otherwise TH IS WEDNESDAY Electronically Signed by Isaiah Chase MD on 08/24 at 2053 RPT #:[id number] END OF REPORT 2019-08-23 20:03:00-00:00 [facility]) OB Antepartum Prog Note REPORT#:[id number] REPORT STATUS: Signed DATE:08/23/19 TIME: 2002 PATIENT: ANJELICA NAVARRO UNIT #: [id number] ROOM/BED: [address] : 90 AGE: 29 SEX: F ATTEND: Isaiah Chase MD ADM AUTHOR: Isaiah Chase MD * ALL edits or amendments must be made on the Wetradetogether/Noknoker document * Subjective Subjective Patient reports: Patient [...] Chase MD on 08/23 at 2004 RPT #:[id number] END OF REPORT 2019-08-22 17:12:00-00:00 [facility] ([facility]) OB Antepartum Prog Note REPORT#:[id number] REPORT STATUS: Signed DATE:08/22/19 TIME: 171 PATIENT: ANJELICA NAVARRO UNIT #: [id number] ROOM/BED: [address] : 90 AGE: 29 SEX: F ATTEND: Wilder Chase MD ADM AUTHOR: Isaiah Chase MD * ALL edits or amendments must be made on the Wetradetogether/Noknoker document * Subjective Subjective Patient reports: Patient [...] Chase MD on 08/22 at 1713 RPT #:[id number] END OF REPORT 2019-08-21 12:42:00-00:00 [facility] ([facility]) OB Antepartum Prog Note REPORT#:[id number] REPORT STATUS: Signed DATE:08/21/19 TIME: 124 PATIENT: ANJELICA NAVARRO UNIT #: [id number] ROOM/BED: [facility]-A : 90 AGE: 29 SEX: F ATTEND: Wilder Chase MD ADM AUTHOR: Cuco Cam MD * ALL edits or amendments must be made on the Wetradetogether/computer document * Subjective Subjective Patient reports: Patient [...] otherwise at 35- 36 weeks, scheduled for - per pt Dr liu aware Electronically Signed by Cuco Cam MD on at 1424 RPT #:[id number] END OF REPORT 2019-08-20 12:53:00-00:00 [facility] OB Antepartum Prog Note REPORT#:[id number] REPORT STATUS: Signed DATE:08/20/19 TIME: 1253 PATIENT: ANJELICA NAVARRO UNIT #: [id number] ROOM/BED: [facility]-A : 90 AGE: 29 SEX: F ATTEND: Wilder Chase MD ADM AUTHOR: Vincent Liu MD * ALL edits or amendments must be made on the Wetradetogether/Noknoker document * Subjective Subjective Patient reports: Patient [...] Vincent Liu MD on at 1253 RPT #:[id number] END OF REPORT 2019-08-19 11:54:00-00:00 [facility] ([facility]) OB Antepartum Prog Note REPORT#:[id number] REPORT STATUS: Signed DATE:08/19/19 TIME: 1154 PATIENT: ANJELICA NAVARRO UNIT #: [id number] ROOM/BED: [facility]-A : 90 AGE: 29 SEX: F ATTEND: Isaiah Chase MD ADM AUTHOR: Vincent Liu MD * ALL edits or amendments must be made on the Wetradetogether/Noknoker document * Subjective Subjective Patient reports: Patient [...] Liu MD on 10/26 at 1155 RPT #:[id number] END OF REPORT 2019-08-18 18:02:00-00:00 [facility]) OB Antepartum Prog Note REPORT#:[id number] REPORT STATUS: Signed DATE:08/18/19 TIME: 1801 PATIENT: ANJELICA NAVARRO UNIT #: [id number] ROOM/BED: [address] : 90 AGE: 29 SEX: F ATTEND: Isaiah Chase MD ADM AUTHOR: Isaiah Chase MD * ALL edits or amendments must be made on the Wetradetogether/Noknoker document * Subjective Subjective Patient reports: Patient [...] B/P B/P Mean Pulse Ox FiO 2 08/17-08/18 98.2 73-88 16 104-113/61-69 74.0-86 .0 100 [...] Chase MD on 08/18 at 1802 RPT #:[id number] END OF REPORT 2019-08-17 21:38:00-00:00 [facility] ([facility]) OB Antepartum Prog Note REPORT#:[id number] REPORT STATUS: Signed DATE:08/17/19 TIME: 2137 PATIENT: ANJELICA NAVARRO UNIT #: [id number] ROOM/BED: [address] : 90 AGE: 29 SEX: F ATTEND: Isaiah Chase MD ADM AUTHOR: Isaiah Chase MD * ALL edits or amendments must be made on the Wetradetogether/computer document * Subjective Subjective Patient reports: Patient reports: Yes normal movement, No no complaints, No abdominal pain, No vaginal bleeding, No leaking fluid, No contractions Comments: seen around 8am Objective General VS: Last Documented: Result Date Time B/P Mean 74.0 08/17 1923 B/P 104/61 08/17 192 Pulse 88 08/17 1923 Pulse Ox 100 [...] Chase MD on 08/17 at 2142 RPT #:[id number] END OF REPORT 2019-08-16 21:42:00-00:00 [facility] ([facility]) OB Antepartum Prog Note REPORT#:[id number] REPORT STATUS: Signed DATE:08/16/19 TIME: 2141 PATIENT: ANJELICA NAVARRO UNIT #: [id number] [address] AGE: 29 SEX: F ATTEND: Isaiah Chase MD ADM AUTHOR: Isaiah Chase MD * ALL edits or amendments must be made on the Wetradetogether/computer document * Subjective Subjective Patient reports: Patient reports: Yes normal movement, No no complaints, No abdominal pain, No vaginal bleeding, No leaking fluid, No contractions Comments: seen around 7am Objective General VS: Last Documented: Result Date Time B/P Mean 82.0 08/16 1952 B/P 113/63 08/16 1952 Pulse 99 08/16 1952 Pulse Ox 100 08/16 749 Resp 16 08/16 749 Temp 98.1 08/15 2006 Vital Signs Date Temp Pulse Resp B/P B/P Mean Pulse Ox FiO 2 08/16 75-99 16 113-127/60-63 82.0-86.0 100 Patient [...] Chase MD on 08/16 at 2150 RPT #:[id number] END OF REPORT 2019-08-15 18:36:00-00:00 [facility]) OB Antepartum Prog Note REPORT#:[id number] REPORT STATUS: Signed DATE:08/15/19 TIME: 1835 PATIENT: ANJELICA NAVARRO UNIT #: [id number] ROOM/BED: [address] : 90 AGE: 29 SEX: F ATTEND: Isaiah Chase MD ADM AUTHOR: Isaiah Chase MD * ALL edits or amendments must be made on the Wetradetogether/computer document * Subjective Subjective Patient reports: Patient reports: Yes normal movement, No no complaints, No abdominal pain, No vaginal bleeding, No leaking fluid, No contractions Comments: seen around 8am Objective General VS: Last Documented: Result Date Time B/P Mean 84.0 08/15 946 B/P 109/69 08/15 946 Pulse 81 08/15 946 Pulse Ox 100 10/08 0946 Temp 98.2 08/15 946 Resp 16 08/15 [...] Chase MD on 08/15 at 1837 RPT #:[id number] END OF REPORT 2019-08-14 17:46:00-00:00 [facility]) OB Antepartum Prog Note REPORT#:[id number] REPORT STATUS: Signed DATE:08/14/19 TIME: 1746 PATIENT: ANJELICA NAVARRO UNIT #: [id number] ROOM/BED: [address] : 90 AGE: 29 SEX: F ATTEND: Isaiah Chase MD ADM AUTHOR: Isaiah Chase MD * ALL edits or amendments must be made on the Wetradetogether/Noknoker document * Subjective Subjective Patient reports: Patient [...] Chase MD on 08/14 at 1746 RPT #:[id number] END OF REPORT 2019-08-13 11:12:00-00:00 [facility] ([facility]) OB Antepartum Prog Note REPORT#:[id number] REPORT STATUS: Signed DATE:08/13/19 TIME: 1112 PATIENT: ANJELICA NAVARRO UNIT #: [id number] ROOM/BED: [address] : 90 AGE: 29 SEX: F ATTEND: Isaiah Chase MD ADM AUTHOR: iVncent Liu MD * ALL edits or amendments must be made on the Wetradetogether/computer document * Subjective Subjective Patient reports: Patient [...] Liu MD on 04/26 at 1112 RPT #:[id number] END OF REPORT 2019 12:38:00-00:00 [facility] ([facility]) OB Antepartum Prog Note REPORT#:[id number] REPORT STATUS: Signed DATE:08/12/19 TIME: 1238 PATIENT: ANJELICA NAVARRO UNIT #: [id number] ROOM/BED: [address] : 90 AGE: 29 SEX: F ATTEND: Isaiah Chase MD ADM AUTHOR: Vincent Liu MD * ALL edits or amendments must be made on the Wetradetogether/Noknoker document * Subjective Subjective Patient reports: Patient [...] Liu MD on 03/26 at 1239 RPT #:[id number] END OF REPORT 2019-08-11 21:53:00-00:00 [facility] ([facility]) OB Antepartum Prog Note REPORT#:[id number] REPORT STATUS: Signed DATE:08/11/19 TIME: 2152 PATIENT: ANJELICA NAVARRO UNIT #: [id number] [address] AGE: 28 SEX: F ATTEND: Isaiah Chase MD ADM AUTHOR: Isaiah Chase MD * ALL edits or amendments must be made on the Wetradetogether/computer document * Subjective Subjective Patient reports: Patient [...] Chase MD on 08/11 at 2157 RPT #:[id number] END OF REPORT 2019-08-10 20:47:00-00:00 [facility] OB Antepartum Prog Note REPORT#:[id number] REPORT STATUS: Signed DATE:08/10/19 TIME: 2046 PATIENT: ANJELICA NAVARRO UNIT #: [id number] ROOM/BED: [address] : 90 AGE: 28 SEX: F ATTEND: Isaiah Chase MD ADM AUTHOR: Isaiah Chase MD * ALL edits or amendments must be made on the Wetradetogether/Noknoker document * Subjective Subjective Patient reports: Patient reports: Yes normal movement, No no complaints, No abdominal pain, No vaginal bleeding, No leaking fluid, No contractions Comments: seen around 6pm Objective General VS: Last Documented: Result Date Time B/P Mean 90.0 08/10 1930 B/P 120/72 08/10 193 Pulse 86 08/10 193 Temp 98.5 08/10 0928 Resp 18 08/10 928 Pulse Ox 100 08/10 0145 Vital Signs Date Temp Pulse Resp B/P B/P Mean Pulse Ox FiO2 08/10 98.5 86-92 18 120-124/65-72 88.0-90.0 10 0 Patient Weight Weight (lb): 128 Weight (oz): [...] Chase MD on 08/10 at 2048 RPT #:[id number] END OF REPORT 2019-08-09 20:17:00-00:00 [facility] ([facility]) OB Antepartum Prog Note REPORT#:[id number] REPORT STATUS: Signed DATE:08/09/19 TIME: 2016 PATIENT: ANJELICA NAVARRO UNIT #: [id number] ROOM/BED: [address] : 90 AGE: 28 SEX: F ATTEND: Isaiah Chase MD ADM AUTHOR: Isaiah Chase MD * ALL edits or amendments must be made on the Wetradetogether/Noknoker document * Subjective Subjective Patient reports: Patient [...] Chase MD on 08/09 at 2017 RPT #:[id number] END OF REPORT 2019-08-08 13:06:00-00:00 [facility] ([facility]) OB Antepartum Prog Note REPORT#:[id number] REPORT STATUS: Signed DATE:08/08/19 TIME: 1306 PATIENT: ANJELICA NAVARRO UNIT #: [id number] ROOM/BED: [address] : 90 AGE: 28 SEX: F ATTEND: Isaiah Chase MD ADM AUTHOR: Isaiah Chase MD * ALL edits or amendments must be made on the el Architizerronic/computer document * Subjective Subjective Patient reports: Patient [...] Chase MD on 08/08 at 1308 RPT #:[id number] END OF REPORT 2019-08-07 20:27:00-00:00 [facility] ([facility]) OB Antepartum Prog Note REPORT#:[id number] REPORT STATUS: Signed DATE:08/07/19 TIME: 2026 PATIENT: ANJELICA NAVARRO UNIT #: [id number] ROOM/BED: [address] : 90 AGE: 28 SEX: F ATTEND: Isaiah Chase MD ADM AUTHOR: Isaiah Chase MD * ALL edits or amendments must be made on the AdECN document * Subjective Subjective Patient reports: Patient [...] Chase MD on 08/07 at 2028 RPT #:[id number] END OF REPORT 2019-08-06 13:37:00-00:00 [facility]) OB Antepartum Prog Note REPORT#:[id number] REPORT STATUS: Signed DATE:08/06/19 TIME: 1337 PATIENT: ANJELICA NAVARRO UNIT #: [id number] ROOM/BED: [address] : 90 AGE: 28 SEX: F ATTEND: sIaiah Chase MD ADM AUTHOR: Isaiah Chase MD * ALL edits or amendments must be made on the AdECN document * Subjective Subjective Patient reports: Patient reports: Yes normal movement, No no complaints, No abdominal pain, No vaginal bleeding, No leaking fluid, No contractions Objective General VS: Last Documented: Result Date Time Temp 97.8 08/06 903 B/P Mean 73.0 08/06 903 B/P 101/60 08/06 09 Pulse 80 09/29 0903 Pulse Ox 100 08/06 0229 Resp 08/05 0915 Vital Signs Date Temp Pulse Resp B/P B/P Mean Pulse Ox FiO2 08/05-08/06 97.8-98.5 22-100 101-111/60-65 73. 0-83.0 86-100 Patient Weight Weight (lb): 128 Weight [...] Chase MD on 08/06 at 1338 RPT #:[id number] END OF REPORT 2019-08-05 21:42:00-00:00 [facility] OB Antepartum Prog Note REPORT#:[id number] REPORT STATUS: Signed DATE:08/05/19 TIME: 2141 PATIENT: ANJELICA NAVARRO UNIT #: [id number] ROOM/BED: [address] : 90 AGE: 28 SEX: F ATTEND: Isaiah Chase MD ADM AUTHOR: Isaiah Chase MD * ALL edits or amendments must be made on the Wetradetogether/Noknoker document * Subjective Subjective Patient reports: Patient reports: Yes normal movement, No no complaints, No abdominal pain, No vaginal bleeding, No leaking fluid, No contractions Comments: SEEN AROUND 4PM Objective General VS: Last Documented: Result Date Time Pulse Ox 86 08/05 1429 Pulse 22 08/05 1429 Temp 97.7 08/05 0915 Resp 08/05 B/P Mean 84.0 09/28 0915 B/P 111/72 08/05 0915 Vital Signs Date Temp Pulse Resp B/P B/P Mean Pulse Ox FiO 2 08/04-08/05 97.7 22-83 18 111/ 84.0 86-100 [...] Chase MD on 08/05 at 2143 RPT #:[id number] END OF REPORT 2019-08-04 19:35:00-00:00 [facility] ([facility]) Clinical Note REPORT#:[id number] REPORT STATUS: Signed DATE:08/04/19 TIME: 1934 PATIENT: ANJELICA NAVARRO UNIT #: [id number] ROOM/BED: [address] : 90 AGE: 28 SEX: F ATTEND: Isaiah Chase MD ADM AUTHOR: Abi Bangura MD * ALL edits or amendments must be made on the el Skeeble/computer document * Clinical Note Note: hospitalist to [...] Abi Bangura MD on at 1942 RPT #:[id number] END OF REPORT 2019-08-04 17:09:00-00:00 [facility] ([facility]) OB Antepartum Prog Note REPORT#:[id number] REPORT STATUS: Signed DATE:08/04/19 TIME: 1709 PATIENT: ANJELICA NAVARRO UNIT #: [id number] ROOM/BED: [address] : 90 AGE: 28 SEX: F ATTEND: Isaiah Chase MD ADM AUTHOR: Isaiah Chase MD * ALL edits or amendments must be made on the Wetradetogether/computer document * Subjective Subjective Patient reports: Patient [...] Resp B/P B/P Mean Pulse Ox FiO2 08/03-09/27 98.2 93-109 16 124-127/74-76 93.0-9 5.0 91-100 [...] Chase MD on 08/04 at 1713 RPT #:[id number] END OF REPORT 2019-08-03 20:46:00-00:00 [facility] ([facility]) OB Admission / H P REPORT#:[id number] REPORT STATUS: Signed DATE:08/03/19 TIME: 2045 PATIENT: ANJELICA NAVARRO UNIT #: [id number] ROOM/BED: [address] : 90 AGE: 28 SEX: F ATTEND: Isaiah Chase MD ADM AUTHOR: Isaiah Chase MD * ALL edits or amendments must be made on the el Skeeble/computer document * OB Admission H P Hx [...] Chase MD on 08/03 at 2114 RPT #:[id number] END OF REPORT 2019-08-03 17:03:00-00:00 [facility] DT Consult Note REPORT#:[id number] REPORT STATUS: Signed DATE:08/03/19 TIME: 170 PATIENT: ANJELICA NAVARRO UNIT #: [id number] ROOM/BED: [facility] : 90 AGE: 28 SEX: F ATTEND: Isaiah Chase MD ADM AUTHOR: Ko Velasco DO * ALL edits or amendments must be made on the el Architizerronic/computer document * CONSULT NOTE Note: Neonatology Consult Note I was called to the bedside to discuss the expec tation and complications of prematurity at 32 weeks' gestation age. We discussed the events surrounding the delivery and that the resuscitation team would be present for delivery . The will be admitted to either the Advanced [...] Signature: Ko Velasco DO at 1704 RPT #:[id number] END OF REPORT
[2023-06-20] MEDS ORDERED: NA CHLORIDE 0.9% 1,000 ML ONE (17:38)
[2023-06-20 17:42] LABS: Specific Gravity > 1.030 (1.005-1.030)
[2023-06-20 17:45] LABS: Absolute Lymphocytes (CBC) 0.6 K/uL (0.7-4.9); Hematocrit 41.8 % (36.0-45.0); MCV 96.4 fL (80-100); MPV 8.2 fL (7.6-11.3); Platelets 212 thou/uL (152-406); RBC Red Blood Cell Count 4.33 M/uL (3.86-4.86)
[2023-06-20 17:49] LABS: Specific Gravity > 1.030 (1.005-1.030); Transitional Epithelial <5 /HPF (None Seen); Urine Bacteria <20 /HPF (<20); Urine Bilirubin NEGATIVE (Negative); Urine Blood Negative (Negative); Urine Clarity Clear (Clear); Urine Color Yellow (Yellow); Urine Glucose NEGATIVE (Negative); Urine Mucus 1+ /HPF (None Seen); Urine Protein TRACE (Negative); Urine RBC <5 /HPF (None Seen); Urine Urobilinogen 1+ (Normal); Urine pH 5.5 (5.0-7.0)
[2023-06-20 17:55] LABS: SARS-CoV-2 Antigen Rapid Res Negative (Negative)
[2023-06-20 18:00] LABS: Albumin 3.9 g/dL (3.4-5.0); Bilirubin Total 0.5 mg/dL (0.2-1.0); Potassium 3.6 mEq/L (3.5-5.1); Protein, Total 7.6 g/dL (6.4-8.2)
[2023-06-20] MEDS ORDERED: METOCLOPRAMIDE 10 MG/2mL INJ ONE (18:28)
[2023-06-20] MEDS ORDERED: MAGNESIUM SULFATE 1 gm IVPB 1 GM/100 ML BAG IV ONE (18:29)
[2023-06-20] MEDS ORDERED: KETOROLAC 30 MG/ML INJ ONE (18:29)
--- NOTE | 2023-06-20 18:42 | RAD REPORT ---
EXAM DESCRIPTION: CT - Head Brain Wo Cont - 06/20/2023 6:26 pm CLINICAL HISTORY: Headache COMPARISON: none TECHNIQUE: Computed axial tomography of the head was obtained. IV contrast was not requested. All CT scans are performed using dose optimization technique as appropriate and may include automated exposure control or mA/KV adjustment according to patient size. FINDINGS: An intracranial bleed is not seen The ventricles are normal in caliber No significant hypodense areas within the brain visualized No extra-axial fluid collection is noted. Fluid within the sinuses/ mastoids is not seen IMPRESSION: No acute intracranial abnormality is seen If patient's symptoms persist MRI of the brain would be recommended
--- NOTE | 2023-06-20 19:21 | EDPHYS ---
Physician Documentation [facility] Name: Jade Murillo Age: 32 yrs Sex: Female : 1990 Arrival Date: 06/20/2023 Time: 17:08 Bed 13 Private MD: ED Physician Teja Vergara HPI: 06/20 17:52 This 32 yrs old Black Female presents to ER via Ambulatory with complaints of Headache. sb4 18:08 The patient complains of pain to the forehead. Onset: The symptoms/episode sb4 began/occurred this morning. The patient presents to the emergency department with weakness of the entire body, generalized weakness, that is mild. Onset: The symptoms/episode began/occurred this morning. Associated signs and symptoms: Pertinent positives: This patient does not have any pertinent positive signs or symptoms associated with a headache. Pertinent negatives: dizziness, malaise, nausea, neck stiffness, paresthesias, Photophobia vision changes, vomiting. Headache History: Denies prior headaches. Current symptoms: headache, that is mild. The symptoms are alleviated by nothing. the symptoms are aggravated by nothing. 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 - Social history:: Smoking status: Patient denies any tobacco usage or history of. ROS: 17:52 Constitutional: Negative for fever, chills, and weight loss, Eyes: Negative for injury, sb4 pain, redness, and discharge, ENT: Negative for injury, pain, and discharge, Cardiovascular: Negative for chest pain, palpitations, and edema, Respiratory: Negative for shortness of breath, cough, wheezing, and pleuritic chest pain, Abdomen/GI: Negative for abdominal pain, nausea, vomiting, diarrhea, and constipation, Back: Negative for injury and pain, MS/Extremity: Negative for injury and deformity, Skin: Negative for injury, rash, and discoloration. 17:52 Neuro: Positive for headache, weakness, Negative for altered mental status, dizziness, syncope, visual changes. 17:52 All other systems are negative. Exam: 17:52 Constitutional: This is a well developed, well nourished patient who is awake, alert, sb4 and in no acute distress. Head/Face: Normocephalic, atraumatic. Eyes: Extra-ocular motions intact. Periorbital areas with no swelling, redness, or edema. ENT: Mucous membranes moist. Cardiovascular: Regular rate and rhythm with a normal S1 and S2. Respiratory: Lungs have equal breath sounds bilaterally, clear to auscultation and percussion. No rales, rhonchi or wheezes noted. No increased work of breathing, no retractions or nasal flaring. Abdomen/GI: Soft, non-tender, no distension. Back: No spinal tenderness. No costovertebral tenderness. Full range of motion. Skin: Warm, dry with normal turgor. Normal color with no rashes, no lesions, and no evidence of cellulitis. MS/ Extremity: Pulses equal, no cyanosis. Neurovascular intact. Full, normal range of motion. Neuro: Awake and alert, GCS 15, oriented to person, place, time, and situation. Cranial nerves II-XII grossly intact. Motor strength 5/5 in all extremities. Sensory grossly intact. Cerebellar exam normal. Normal gait. Vital Signs: 17:15 BP 131 / 89; Pulse 92; Resp 17; Temp 99.1; Pulse Ox 100% ; Weight 68.04 kg; Height 5 jl7 ft. 4 in. ; Pain 4/10; 18:39 BP 123 / 84; Pulse 79; Resp 15; Pulse Ox 100% ; Pain 0/10; jl7 19:30 BP 119 / 78; Pulse 81; Resp 16 S; Pulse Ox 100% on R/A; Pain 0/10; lg3 17:15 Body Mass Index 25.75 (68.04 kg, 162.56 cm) jl7 17:15 Pain Scale: Adult jl7 18:39 Pain Scale: Adult jl7 19:30 Pain Scale: Adult lg3 [place] Coma Score: 17:52 Eye Response: spontaneous(4). Motor Response: obeys commands(6). Verbal Response: sb4 oriented(5). Total: 15. MDM: 17:12 Patient medically screened. sb4 17:52 Differential diagnosis: cluster headache, hypoglycemia, migraine, sinusitis, tension sb4 headache, covid, flu, rhabdomyolsis, dehydration. 18:46 Data reviewed: vital signs, nurses notes, lab test result(s), radiologic studies, and sb4 as a result, I will discharge patient. Counseling: I had a detailed discussion with the patient and/or guardian regarding: the historical points, exam findings, and any diagnostic results supporting the discharge/admit diagnosis, lab results, radiology results, to return to the emergency department if symptoms worsen or persist or if there are any questions or concerns that arise at home. 06/20 17:18 Order name: CBC with Diff; Complete Time: 17:47 sb4 06/20 17:18 Order name: CMP; Complete Time: 18:02 sb4 06/20 17:18 Order name: Test, Urine; Complete Time: 17:48 sb4 06/20 17:18 Order name: Urinalysis w/ reflexes; Complete Time: 17:51 sb4 06/20 17:18 Order name: CPK; Complete Time: 18:02 sb4 06/20 17:18 Order name: SARS RAPID; Complete Time: 17:56 sb4 06/20 17:18 Order name: Flu; Complete Time: 18:05 sb4 06/20 18:08 Order name: Head Brain Wo Cont CT; Complete Time: 18:46 sb4 06/20 17:18 Order name: IV Saline Lock; Complete Time: 17:35 sb4 06/20 17:18 Order name: Labs collected and sent; Complete Time: 17:35 sb4 Administered Medications: 17:35 Drug: NS 0.9% IV 1000 ml Route: IV; Rate: 1 bolus; Site: right antecubital; jl7 18:38 Follow up: Response: No adverse reaction; IV Status: Completed infusion; IV Intake: jl7 1000ml 18:26 Drug: Ketorolac IVP 15 mg Route: IVP; Site: right antecubital; hb 18:38 Follow up: Response: No adverse reaction; Pain is decreased jl7 18:26 Drug: metoCLOPramide IVP 10 mg Route: IVP; Site: right antecubital; hb 18:38 Follow up: Response: No adverse reaction jl7 18:33 Drug: Magnesium Sulfate IVPB 1 grams Route: IVPB; Infused Over: 1 hrs; Site: right jl7 antecubital; 19:30 Follow up: IV Status: Completed infusion lg3 Disposition Summary: 06/20/23 19:20 Discharge Ordered Location: Home sb4 Problem: new sb4 Symptoms: have improved sb4 Condition: Stable sb4 Diagnosis - Headache sb4 Followup: sb4 - With: Private Physician - When: As needed - Reason: Recheck today's complaints, Continuance of care, Re-evaluation by your physician Discharge Instructions: - Discharge Summary Sheet sb4 - General Headache Without Cause sb4 Forms: - Medication Reconciliation Form sb4 - Thank You Letter sb4 - Antibiotic Education sb4 - Prescription Opioid Use sb4 - Patient Portal Instructions sb4 - Leadership Thank You Letter sb4 Signatures: Dispatcher [employer] Gladis Bajwa RN RN Shiloh Miller RN RN jl7 Millie Dan PA-C PA-C sb4 Aleksandra Vogt RN lg3
--- NOTE | 2023-06-20 19:21 | ER ---
Nurse's Notes [facility] Name: Jade Murillo Age: 32 yrs Sex: Female : 1990 Arrival Date: 06/20/2023 Time: 17:08 Bed 13 Private MD: Diagnosis: Headache Presentation: 06/20 17:15 Chief complaint: Patient states: CALDERA and weakness all over since 0200. Pt denies, N/V/D, jl7 denies symptoms, denies SOB, denies fever and chills. Coronavirus screen: At this time, the client does not indicate any symptoms associated with coronavirus-19. Ebola Screen: No symptoms or risks identified at this time. Initial Sepsis Screen: Does the patient meet any 2 criteria? No. Patient's initial sepsis screen is negative. Does the patient have a suspected source of infection? No. Patient's initial sepsis screen is negative. Risk Assessment: Do you want to hurt yourself or someone else? Patient reports no desire to harm self or others. Onset of symptoms was June 20, 2023 at 02:00. 17:15 Method Of Arrival: Ambulatory [facility] 17:15 Acuity: KEVYN 3 hb Triage Assessment: 17:15 General: Appears in no apparent distress. uncomfortable, Behavior is calm, cooperative, jl7 appropriate for age. Pain: Complains of pain in CALDERA. Neuro: Level of Consciousness is awake, alert, obeys commands, Oriented to person, place, time, situation. Cardiovascular: Denies chest pain, Patient's skin is warm and dry. Respiratory: Airway is patent Respiratory effort is even, unlabored, Respiratory pattern is regular, symmetrical, Denies shortness of breath. GI: Patient currently denies diarrhea, nausea, vomiting. : Denies burning with urination. Derm: Skin is dry, Skin is normal, Skin temperature is warm. 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 - Social history:: Smoking status: Patient denies any tobacco usage or history of. Screenin:17 [facility] ED Fall Risk Assessment (Adult) Score/Fall Risk Level 0 - 2 = Low Risk hb Oriented to surroundings, Maintained a safe environment. Abuse screen: Denies threats or abuse. Denies injuries from another. Nutritional screening: No deficits noted. Tuberculosis screening: No symptoms or risk factors identified. Assessment: 17:17 General: Appears in no apparent distress. Behavior is calm, cooperative. Pain: Pain hb currently is 4 out of 10 on a pain scale. Neuro: Level of Consciousness is awake, alert, obeys commands, Oriented to person, place, time, situation. Cardiovascular: Patient's skin is warm and dry. Respiratory: Respiratory effort is even, unlabored, Respiratory pattern is regular, symmetrical. GI: No signs and/or symptoms were reported involving the gastrointestinal system. : No signs and/or symptoms were reported regarding the genitourinary system. EENT: No signs and/or symptoms were reported regarding the EENT system. Derm: Skin is pink, warm \T\ dry. Musculoskeletal: No signs and/or symptoms reported regarding the musculoskeletal system. 18:25 Reassessment: Patient appears in no apparent distress at this time. Patient and/or hb family updated on plan of care and expected duration. Pain level reassessed. Patient is alert, oriented x 3, equal unlabored respirations, skin warm/dry/pink. 19:29 General: Appears in no apparent distress. comfortable, Behavior is calm, cooperative. lg3 Pain: Denies pain. Neuro: No deficits noted. [place] Agitation-Sedation Scale (RASS): 0 - Alert and Calm Level of Consciousness is awake, alert, obeys commands, Oriented to person, place, time, situation. Cardiovascular: No deficits noted. Denies chest pain, shortness of breath, Capillary refill < 3 seconds Clubbing of nail beds is absent JVD is absent Patient's skin is warm and dry. Respiratory: No deficits noted. Airway is patent Respiratory effort is even, unlabored, Respiratory pattern is regular, symmetrical. GI: No deficits noted. No signs and/or symptoms were reported involving the gastrointestinal system. : No deficits noted. No signs and/or symptoms were reported regarding the genitourinary system. EENT: No deficits noted. No signs and/or symptoms were reported regarding the EENT system. Derm: No deficits noted. No signs and/or symptoms reported regarding the dermatologic system. Skin is intact, is healthy with good turgor, Skin is dry, Skin is normal, Skin temperature is warm. Musculoskeletal: No deficits noted. No signs and/or symptoms reported regarding the musculoskeletal system. Circulation, motion, and sensation intact. Range of motion: intact in all extremities. Vital Signs: 17:15 BP 131 / 89; Pulse 92; Resp 17; Temp 99.1; Pulse Ox 100% ; Weight 68.04 kg; Height 5 jl7 ft. 4 in. ; Pain 4/10; 18:39 BP 123 / 84; Pulse 79; Resp 15; Pulse Ox 100% ; Pain 0/10; jl7 19:30 BP 119 / 78; Pulse 81; Resp 16 S; Pulse Ox 100% on R/A; Pain 0/10; lg3 17:15 Body Mass Index 25.75 (68.04 kg, 162.56 cm) jl7 17:15 Pain Scale: Adult jl7 18:39 Pain Scale: Adult jl7 19:30 Pain Scale: Adult lg3 [place] Coma Score: 17:52 Eye Response: spontaneous(4). Motor Response: obeys commands(6). Verbal Response: sb4 oriented(5). Total: 15. ED Course: 17:11 Patient arrived in ED. mr 17:12 Millie Dan PA-C is PHCP. sb4 17:12 Teja Vergara MD is Attending Physician. sb4 17:16 Gladis Mackenzie, RN is Primary Nurse. hb 17:16 Arm band placed on. hb 17:17 Patient has correct armband on for positive identification. Bed in low position. Call hb light in reach. Provided Education on: . 17:18 Triage completed. jl7 17:35 Flu Sent. hb 17:35 SARS RAPID Sent. hb 17:35 CPK Sent. hb 17:35 CBC with Diff Sent. hb 17:35 CMP Sent. hb 17:35 Test, Urine Sent. hb 17:35 Urinalysis w/ reflexes Sent. hb 18:28 Head Brain Wo Cont CT In Process Unspecified. EDMS 19:30 No provider procedures requiring assistance completed. IV discontinued, intact, lg3 bleeding controlled, No redness/swelling at site. Pressure dressing applied. Administered Medications: 17:35 Drug: NS 0.9% IV 1000 ml Route: IV; Rate: 1 bolus; Site: right antecubital; jl7 18:38 Follow up: Response: No adverse reaction; IV Status: Completed infusion; IV Intake: jl7 1000ml 18:26 Drug: Ketorolac IVP 15 mg Route: IVP; Site: right antecubital; hb 18:38 Follow up: Response: No adverse reaction; Pain is decreased jl7 18:26 Drug: metoCLOPramide IVP 10 mg Route: IVP; Site: right antecubital; hb 18:38 Follow up: Response: No adverse reaction jl7 18:33 Drug: Magnesium Sulfate IVPB 1 grams Route: IVPB; Infused Over: 1 hrs; Site: right jl7 antecubital; 19:30 Follow up: IV Status: Completed infusion lg3 Medication: 17:17 VIS not applicable for this client. hb Intake: 18:38 IV: 1000ml; Total: 1000ml. jl7 Outcome: 19:20 Discharge ordered by MD. sb4 19:31 Discharged to home ambulatory, with significant other. lg3 19:31 Condition: stable 19:31 Discharge instructions given to patient, Instructed on discharge instructions, follow up and referral plans. Demonstrated understanding of instructions, follow-up care. 19:31 Patient left the ED. lg3 Signatures: Dispatcher [employer] THEEWI AhnNaomie fuchs Heather, RN RN Shiloh Dai RN YONG jl7 Aleksandra Vogt RN RN lg3 Millie Dan, GUY PAGuillermo sb4 Corrections: (The following items were deleted from the chart) 17:21 17:15 Acuity: KEVYN 4 jl7 hb
[2023-06-20 19:36] VITALS: TEMP 99.1; O2SAT 100
[2023-06-20 19:39] VITALS: BP 119/78
== END 2023-06-20 19:31 | disposition home or self-care (01) ==
LOC: ER 17:08
DX: R51.9 Headache, unspecified (principal); R53.1 Weakness; Z20.822 Contact with and (suspected) exposure to COVID-19
CPT/HCPCS: 36415; 70450; 80053; 81001; 81025; 82550; 85025; 87804; 87811; 96361; 96365; 96375; 99284; J2765; J3475; J7030

== ENCOUNTER → 2023-10-26 | Emergency (ER) | payer SELFPAY ==
[~2023-10-26] MED LIST: DIPHENHYDRAMINE 50 MG/ML VIAL ONE; KETOROLAC 30 MG/ML INJ ONE; METOCLOPRAMIDE 10 MG/2mL INJ ONE; NA CHLORIDE 0.9% 1,000 ML ONE
--- OUTSIDE RECORDS SUMMARY | 2023-10-26 17:48 | XMS REPORT | Continuity of Care Document ---
Author Name Unknown Address [address] [facility] [address] [place] [address] [facility] thconnect Address [address] [facility] [address] [place] [address] Care Team Providers Care Major Case Detective Name Role Phone CLARICE SMITH Primary Care Physician CLARICE Khalil Attending Clinician Unavailab CLARICE Amaral Attending Clinician Unavailab giovana Stanton Attending Clinician Unavailable PATRICIA THOMAS Attending Clinician Unavailable 2, [facility] Attending Clinician Unavailable ARUN GUNTER Attending Clinician Unavailveronika ALFORD Attending Clinician Unavailab YARY Rondon Attending Clinician Unavailable AYAZ DURAND Attending Clinician Unavail able JUDY FERNÁNDEZ Attending Clinician Unavaila MIKE East Attending Clinician Unavailable OWEN RINCON Attending Clinician Unavaila FABIO Otto Attending Clinician Unavailable GRAZYNA PEDRAZA Attending Clinician Unavailab MARY Joyce Attending Clinician Unavailable RAMIRO MAY Attending Clinician Unavailab KATELYNN De Leon Attending Clinician Unavailable YUNG MEDEIROS Attending Clinician Unavailable Rene Goins Attending Clinician Unavailab NATALIE Farris Attending Clinician Unavailable NADINE PINTO Attending Clinician Unavailable Jolene_Yas Admitting Clinician Unavailable PRASHANTH Admitting Clinician Unavailab JUDY Badillo Admitting Clinician Unavaila annie Payers Payer Name Policy Type Policy Number Effective Date Expirati on Date Source [facility] STAR [id number] 2022 00:00:00 [facility] [id number] [facility] (MEDICAID REPLACEMENT - HMO) [id number] 2022 00:00:00 2023 00:00:00 [place] [facility] [place]ID[place] [id number] [place] [id number] 2019 00:00:00 RELIANCE STANDARD - [facility] MEDICAL LIMITED PLAN - MULTIPLAN [id number] Problems Condition Name Condition Details Condition Category Status Onset Date Resolution Date Last Treatment Date Treating Clinician Comments Source Intramural leiomyoma of uterus Intramural Leiomyoma of Uterus Problem Active 03-24 00:00: 00 [facility] Gonorrhea Gonorrhea Problem Active 2019-11 0 00:00: 00 [facility] Uses transderma l contracept ion Uses Transderma l Contracept ion Problem Active 08-05 00:00: 00 [facility] Gynecologi c examinatio n Gynecologi c Examinatio n Problem Active 08-05 00:00: 00 [facility] Venereal disease screening Venereal Disease Screening Problem Active 9 00:00: 00 [facility] Irregular intermenst rual bleeding Irregular Intermenst rual Bleeding Problem Active 16 00:00: 00 [facility] Initiation of transderma l contracept ion done Initiation of Transderma l Contracept ion Done Problem Active 616 00:00: 00 [facility] care Care Problem Active 2018-11 00:00: 00 [facility] Initiation of depot contracept ion done Initiation of Depot Contracept ion Done Problem Active 2018-11 00:00: 00 [facility] Contracept ion education Contracept ion Education Problem Active 2018-11 00:00: 00 [facility] Small for gestationa l age fetus Small for Gestationa l Age Fetus Problem Active 07-05 00:00: 00 [facility] Unintentio nal weight loss Unintentio nal Weight Loss Problem Active 03-14 00:00: 00 [facility] Severe hyperemesi s gravidarum Severe Hyperemesi s Gravidarum Problem Active 409 00:00: 00 [facility] No known active problems No known active problems Disease [facility] Allergies, Adverse Reactions, Alerts Allergy Name Allergy Type Status Severity Reaction(s) Onset Date Inactive Date Treating Clinician Comments Source NO KNOWN ALLERGIE S Drug Class Active [facility] Social History Social Habit Start Date Stop Date Quantity Comments Source Exposure to SARS-CoV-2 (event) 2022-11-10 00:00:00 2022-11-20 13:38:[address] [facility] Sex Assigned At 1990 00:00:00 1990 00:00:00 [facility] Smoking Status Start Date Stop Date Source Never Smoker [facility] Tobacco smoking consumption unknown [facility] Medications Ordered Medication Name Filled Medication Name Start Date Stop Date Current Medication? Ordering Clinician Indication Dosage Frequency Signature (SIG) Comments Components Source medroxyprog esterone 150 mg/mL intramuscul ar suspensionI nject 1 mL every 3 months by intramuscul ar route. medroxyprog esterone 150 mg/mL intramuscul ar suspensionI nject 1 mL every 3 months by intramuscul ar route. 2022-11 2 10:39: 54 No medroxypro gesterone 150 mg/mL intramuscu lar suspension Inject 1 mL every 3 months by intramuscu lar route. [facility] EPINEPHrine 0.15 mg/0.3 mL injection 11-12 00:00: 00 Yes INJECT 0.3 ML(S) INTRAMUSCU LARLY NEEDED FOR ANAPHYLAXI S. [facility] EPINEPHrine 0.15 mg/0.3 mL injection 11-12 00:00: 00 Yes INJECT 0.3 ML(S) INTRAMUSCU LARLY NEEDED FOR ANAPHYLAXI S. [facility] EPINEPHrine 0.15 mg/0.3 mL injection 11-12 00:00: 00 Yes INJECT 0.3 ML(S) INTRAMUSCU LARLY NEEDED FOR ANAPHYLAXI S. [facility] medroxyprog esterone 10 mg tablet TAKE ONE (1) TABLET(S) BY MOUTH ONCE A DAY. medroxyprog esterone 10 mg tablet TAKE ONE (1) TABLET(S) BY MOUTH ONCE A DAY. No medroxypro gesterone 10 mg tablet TAKE ONE (1) TABLET(S) BY MOUTH ONCE A DAY. [facility] medroxyprog esterone 150 mg/mL intramuscul ar suspension Inject 1 mL every 3 months by intramuscul ar route. medroxyprog esterone 150 mg/mL intramuscul ar suspension Inject 1 mL every 3 months by intramuscul ar route. No 1mL medroxypro gesterone 150 mg/mL intramuscu lar suspension Inject 1 mL every 3 months by intramuscu lar route. [facility] cholecalcif jeremiah (vitamin D3) 1,250 mcg (50,000 unit) capsule TAKE ONE (1) CAPSULE(S) BY MOUTH ONCE WEEKLY. cholecalcif jeremiah (vitamin D3) 1,250 mcg (50,000 unit) capsule TAKE ONE (1) CAPSULE(S) BY MOUTH ONCE WEEKLY. No cholecalci ferol (vitamin D3) 1,250 mcg (50,000 unit) capsule TAKE ONE (1) CAPSULE(S) BY MOUTH ONCE WEEKLY. [facility] medroxyprog esterone 150 mg/mL intramuscul ar suspension Inject 1 mL every 3 months by intramuscul ar route. medroxyprog esterone 150 mg/mL intramuscul ar suspension Inject 1 mL every 3 months by intramuscul ar route. No 1mL medroxypro gesterone 150 mg/mL intramuscu lar suspension Inject 1 mL every 3 months by intramuscu lar route. [facility] medroxyprog esterone 150 mg/mL intramuscul ar syringe INJECT ONE (1) ML(S) INTO THE MUSCLE EVERY 3 MONTHS. medroxyprog esterone 150 mg/mL intramuscul ar syringe INJECT ONE (1) ML(S) INTO THE MUSCLE EVERY 3 MONTHS. No medroxypro gesterone 150 mg/mL intramuscu lar syringe INJECT ONE (1) ML(S) INTO THE MUSCLE EVERY 3 MONTHS. [facility] Provera 10 mg tablet Take 1 tablet every day by oral route for 14 days. Provera 10 mg tablet Take 1 tablet every day by oral route for 14 days. No 1 Q1D Provera 10 mg tablet Take 1 tablet every day by oral route for 14 days. [facility] Vital Signs Vital Name Observation Time Observation Value Comments S ource Body Weight 2023-10-21 00:00:00 156.3 [lb_av] [facility] Height 2023-10-21 00:00:00 64 [in_i] [facility] BP Systolic 2023-10-21 00:00:00 132 mm[Hg] [facility] BP Diastolic 2023-10-21 00:00:00 89 mm[Hg] [facility] BMI (Body Mass Index) 2023-10-21 00:00:00 26.8 kg/m2 [facility] Body Weight 2023-06-29 00:00:00 151 [lb_av] [facility] BP Systolic 2023-06-29 00:00:00 133 mm[Hg] [facility] Height 2023-06-29 00:00:00 64 [in_i] [facility] BMI (Body Mass Index) 2023-06-29 00:00:00 25.9 kg/m2 [facility] BP Diastolic 2023-06-29 00:00:00 88 mm[Hg] [facility] Systolic blood pressure 2022-11-20 19:55:00 128 mm[Hg] [facility] Diastolic blood pressure 2022-11-20 19:55:00 76 mm[Hg] [facility] Heart rate 2022-11-20 19:55:00 82 /min [facility] Body temperature 2022-11-20 19:55:[address] [facility] Respiratory rate 2022-11-20 19:55:00 18 /min [facility] Body height 2022-11-20 19:55:00 162.6 cm [facility] Body weight 2022-11-20 19:55:00 72.576 kg [facility] BMI 2022-11-20 19:55:00 27.46 kg/m2 [facility] Oxygen saturation in Arterial blood by Pulse oximetry 2022-11-20 19:55:00 100 /min [facility] BP Diastolic 2022-06-22 00:00:00 82 mm[Hg] [facility] Height 2022-06-22 00:00:00 64 [in_i] [facility] BMI (Body Mass Index) 2022-06-22 00:00:00 26 kg/m2 [facility] BP Systolic 2022-06-22 00:00:00 131 mm[Hg] [facility] Body Weight 2022-06-22 00:00:00 151.4 [lb_av] [facility] BP Diastolic 2022-05-08 00:00:00 92 mm[Hg] [facility] Height 2022-05-08 00:00:00 64 [in_i] [facility] BMI (Body Mass Index) 2022-05-08 00:00:00 25.9 kg/m2 [facility] BP Systolic 2022-05-08 00:00:00 142 mm[Hg] [facility] Body Weight 2022-05-08 00:00:00 151 [lb_av] [facility] Height 2022-03-18 00:00:00 64 [in_i] [facility] BP Diastolic 2021-12-18 00:00:00 88 mm[Hg] [facility] Height 2021-12-18 00:00:00 64 [in_i] [facility] BMI (Body Mass Index) 2021-12-18 00:00:00 25.5 kg/m2 [facility] BP Systolic 2021-12-18 00:00:00 138 mm[Hg] [facility] Body Weight 2021-12-18 00:00:00 148.4 [lb_av] [facility] Height 2021-09-17 00:00:00 64 [in_i] [facility] BMI (Body Mass Index) 2021-09-17 00:00:00 23.2 kg/m2 [facility] Body Weight 2021-09-17 00:00:00 135 [lb_av] [facility] BP Diastolic 2021-09-02 00:00:00 75 mm[Hg] [facility] Height 2021-09-02 00:00:00 64 [in_i] [facility] BMI (Body Mass Index) 2021-09-02 00:00:00 23 kg/m2 [facility] BP Systolic 2021-09-02 00:00:00 119 mm[Hg] [facility] Body Weight 2021-09-02 00:00:00 134.2 [lb_av] [facility] BP Diastolic 2021-08-19 00:00:00 87 mm[Hg] [facility] Height 2021-08-19 00:00:00 64 [in_i] [facility] BMI (Body Mass Index) 2021-08-19 00:00:00 22.6 kg/m2 [facility] BP Systolic 2021-08-19 00:00:00 124 mm[Hg] [facility] Body Weight 2021-08-19 00:00:00 131.9 [lb_av] [facility] BP Diastolic 2021-04-11 00:00:00 81 mm[Hg] [facility] Height 2021-04-11 00:00:00 64 [in_i] [facility] BMI (Body Mass Index) 2021-04-11 00:00:00 21.1 kg/m2 [facility] BP Systolic 2021-04-11 00:00:00 144 mm[Hg] [facility] Body Weight 2021-04-11 00:00:00 122.9 [lb_av] [facility] Height 2021-03-24 00:00:00 64 [in_i] [facility] BMI (Body Mass Index) 2021-03-24 00:00:00 20.9 kg/m2 [facility] BP Systolic 2021-03-24 00:00:00 127 mm[Hg] [facility] Body Weight 2021-03-24 00:00:00 122 [lb_av] [facility] BP Diastolic 2021-03-24 00:00:00 83 mm[Hg] [facility] BP Diastolic 2020-09-24 00:00:00 83 mm[Hg] [facility] Height 2020-09-24 00:00:00 64 [in_i] [facility] BMI (Body Mass Index) 2020-09-24 00:00:00 22.7 kg/m2 [facility] BP Systolic 2020-09-24 00:00:00 120 mm[Hg] [facility] Body Weight 2020-09-24 00:00:00 132.4 [lb_av] [facility] BP Diastolic 2020-08-20 00:00:00 70 mm[Hg] [facility] Height 2020-08-20 00:00:00 64 [in_i] [facility] BMI (Body Mass Index) 2020-08-20 00:00:00 22.6 kg/m2 [facility] BP Systolic 2020-08-20 00:00:00 131 mm[Hg] [facility] Body Weight 2020-08-20 00:00:00 131.5 [lb_av] [facility] BP Diastolic 2020-08-05 00:00:00 80 mm[Hg] [facility] Height 2020-08-05 00:00:00 64 [in_i] [facility] BMI (Body Mass Index) 2020-08-05 00:00:00 22.3 kg/m2 [facility] BP Systolic 2020-08-05 00:00:00 130 mm[Hg] [facility] Body Weight 2020-08-05 00:00:00 130 [lb_av] [facility] BP Diastolic 2020-04-23 00:00:00 82 mm[Hg] [facility] Height 2020-04-23 00:00:00 64 [in_i] [facility] BMI (Body Mass Index) 2020-04-23 00:00:00 23 kg/m2 [facility] BP Systolic 2020-04-23 00:00:00 128 mm[Hg] [facility] Body Weight 2020-04-23 00:00:00 134 [lb_av] [facility] BP Diastolic 2020-01-02 00:00:00 73 mm[Hg] [facility] Height 2020-01-02 00:00:00 64 [in_i] [facility] BMI (Body Mass Index) 2020-01-02 00:00:00 21.8 kg/m2 [facility] BP Systolic 2020-01-02 00:00:00 114 mm[Hg] [facility] Body Weight 2020-01-02 00:00:00 127.1 [lb_av] [facility] BP Diastolic 2019-09-19 00:00:00 78 mm[Hg] [facility] Height 2019-09-19 00:00:00 64 [in_i] [facility] BMI (Body Mass Index) 2019-09-19 00:00:00 21.8 kg/m2 [facility] BP Systolic 2019-09-19 00:00:00 122 mm[Hg] [facility] Body Weight 2019-09-19 00:00:00 127.2 [lb_av] [facility] BP Diastolic 2019-08-02 00:00:00 77 mm[Hg] [facility] Height 2019-08-02 00:00:00 64 [in_i] [facility] BMI (Body Mass Index) 2019-08-02 00:00:00 22 kg/m2 [facility] BP Systolic 2019-08-02 00:00:00 116 mm[Hg] [facility] Body Weight 2019-08-02 00:00:00 128 [lb_av] [facility] BP Diastolic 2019-07-19 00:00:00 76 mm[Hg] [facility] Height 2019-07-19 00:00:00 64 [in_i] [facility] BMI (Body Mass Index) 2019-07-19 00:00:00 21.8 kg/m2 [facility] BP Systolic 2019-07-19 00:00:00 117 mm[Hg] [facility] Body Weight 2019-07-19 00:00:00 127 [lb_av] [facility] BP Diastolic 2019-07-05 00:00:00 63 mm[Hg] [facility] Height 2019-07-05 00:00:00 64 [in_i] [facility] BMI (Body Mass Index) 2019-07-05 00:00:00 21.9 kg/m2 [facility] BP Systolic 2019-07-05 00:00:00 103 mm[Hg] [facility] Body Weight 2019-07-05 00:00:00 127.5 [lb_av] [facility] BP Diastolic 2019-06-05 00:00:00 76 mm[Hg] [facility] Height 2019-06-05 00:00:00 64 [in_i] [facility] BMI (Body Mass Index) 2019-06-05 00:00:00 20.9 kg/m2 [facility] BP Systolic 2019-06-05 00:00:00 106 mm[Hg] [facility] Body Weight 2019-06-05 00:00:00 122 [lb_av] [facility] BP Diastolic 2019-05-08 00:00:00 69 mm[Hg] [facility] Height 2019-05-08 00:00:00 64 [in_i] [facility] BMI (Body Mass Index) 2019-05-08 00:00:00 20.5 kg/m2 [facility] BP Systolic 2019-05-08 00:00:00 107 mm[Hg] [facility] Body Weight 2019-05-08 00:00:00 119.4 [lb_av] [facility] BP Diastolic 2019-04-10 00:00:00 81 mm[Hg] [facility] Height 2019-04-10 00:00:00 64 [in_i] [facility] BMI (Body Mass Index) 2019-04-10 00:00:00 19.3 kg/m2 [facility] BP Systolic 2019-04-10 00:00:00 119 mm[Hg] [facility] Body Weight 2019-04-10 00:00:00 112.5 [lb_av] [facility] BP Diastolic 2019-04-04 00:00:00 85 mm[Hg] [facility] Height 2019-04-04 00:00:00 64 [in_i] [facility] BMI (Body Mass Index) 2019-04-04 00:00:00 19.4 kg/m2 [facility] BP Systolic 2019-04-04 00:00:00 132 mm[Hg] [facility] Body Weight 2019-04-04 00:00:00 113 [lb_av] [facility] BP Diastolic 2019-03-14 00:00:00 87 mm[Hg] [facility] Height 2019-03-14 00:00:00 64 [in_i] [facility] BMI (Body Mass Index) 2019-03-14 00:00:00 19.1 kg/m2 [facility] BP Systolic 2019-03-14 00:00:00 124 mm[Hg] [facility] Body Weight 2019-03-14 00:00:00 111 [lb_av] [facility] BP Diastolic 2019-02-14 00:00:00 97 mm[Hg] [facility] Height 2019-02-14 00:00:00 64 [in_i] [facility] BMI (Body Mass Index) 2019-02-14 00:00:00 20.6 kg/m2 [facility] BP Systolic 2019-02-14 00:00:00 135 mm[Hg] [facility] Body Weight 2019-02-14 00:00:00 120 [lb_av] [facility] BP Diastolic 2019-02-07 00:00:00 83 mm[Hg] [facility] Height 2019-02-07 00:00:00 64 [in_i] [facility] BMI (Body Mass Index) 2019-02-07 00:00:00 22 kg/m2 [facility] BP Systolic 2019-02-07 00:00:00 124 mm[Hg] [facility] Body Weight 2019-02-07 00:00:00 128.4 [lb_av] [facility] BP Diastolic 2019-01-26 00:00:00 84 mm[Hg] [facility] Height 2019-01-26 00:00:00 64 [in_i] [facility] BMI (Body Mass Index) 2019-01-26 00:00:00 22.4 kg/m2 [facility] BP Systolic 2019-01-26 00:00:00 128 mm[Hg] [facility] Body Weight 2019-01-26 00:00:00 130.4 [lb_av] [facility] BP Diastolic 2019-01-03 00:00:00 76 mm[Hg] [facility] Height 2019-01-03 00:00:00 64 [in_i] [facility] BMI (Body Mass Index) 2019-01-03 00:00:00 22.4 kg/m2 [facility] BP Systolic 2019-01-03 00:00:00 118 mm[Hg] [facility] Body Weight 2019-01-03 00:00:00 130.3 [lb_av] [facility] Procedures Procedure Date / Time Performed Performing Clinician Source FREE T4 2022-11-20 20:48:[address] [facility] [place] [place] THYROID STIMULATING HORMONE 2022-11-20 20:48:00 [facility] COMP. METABOLIC PANEL (40176) 2022-11-20 20:48:00 [facility] LIPID PANEL (35576)(TOTAL CHOLESTEROL, TRIGLYCERIDES, HDL) 2022-11-20 20:48:[address] [facility] [place] [place] CBC WITH DIFF 2022-11-20 20:48:00 [facility] GLYCOSYLATED HEMOGLOBIN (A1C) 2022-11-20 20:48:[address] [facility] [place] [place] FREE T3 2022-11-20 20:48:[address] [facility] [place] [place] US, transvaginal 2021-03-24 00:00:00 [facility] US, obstetric, limited 2019-08-02 00:00:00 [facility] US(FBP)W/0 NON STRESS TEST 2019-08-02 00:00:00 [facility] ULTRASOUND REPEAT 2019-07-05 00:00:00 [facility] US, obstetric, limited 2019-04-10 00:00:00 [facility] ULTRASOUND, UTERUS REAL TIME WITH IMAGE DOC, AND MATERNAL EVAL PLUS DETAILED ANATOMIC EXAMINATION, TRANSABDOMINAL APPROACH; SINGLE OR FIRST GESTATION 2019-04-10 00:00:00 [facility] US, obstetric, limited 2019-03-14 00:00:00 [facility] ULTRASOUND, UTERUS REAL TIME WITH IMAGE DOCUMENTAITON, TRANSVAGINAL 2019-02-14 00:00:00 [facility] ULTRASOUND, UTERUS REAL TIME WITH IMAGE DOCUMENTAITON, TRANSVAGINAL 2019-01-26 00:00:00 [facility] XR, hysterosalpingogram 2019-01-03 00:00:00 [facility] Cholecystectomy 2018-11-08 00:00:00 [facility] Dilation and Curettage 2014-09-08 00:00:00 [facility] Plan of Care Planned Activity Planned Date Details Comments Source Diagnostic Test Pending 2023-10-21 00:00:00 test, urine [code = test, urine] [facility] Future Appointment 2024-07-03 09:00:00 Judy Fernández, [address]; [address], [place] [address] [facility] Future Appointment 2024-01-20 09:00:00 Arun Gunter, [address]; [address], [place] [address] [facility] Instructions [facility] Encounters Start Date/Time End Date/Time Encounter Type Admission Type Attending [facility] Facility Care Department Encounter ID Source 2024-01-11 13:30:00 2024-01-11 13:30:00 Outpatient CLARICE MACKEY [facility] [id number] [facility] 2023-11-23 09:30:00 2023-11-23 09:30:00 Outpatient CLARICE MACKEY [facility] [id number] [facility] 2023-10-21 00:00:00 2023-10-21 00:00:00 Arun Gunter MD: [address], [address], [place] [address] , Ph. [phone] [facility] [id number] [facility] 2023-10-20 00:00:00 2023-10-20 00:00:00 [place] [id number] [facility] 2023-10-20 00:00:00 2023-10-20 00:00:00 Outpatient Rutledge_L MMG MMG [id number] [facility] 2023-10-13 09:07:18 2023-10-13 09:07:18 Outpatient SFA SFA [id number] Jose G Renteria 2023-07-22 00:00:00 2023-07-22 00:00:00 Outpatient Rutledge_L MMG MMG [id number] [facility] 2023-07-22 00:00:00 2023-07-22 00:00:00 Outpatient Rutledge_L MMG MMG [id number] [facility] 2023-06-29 09:08:00 2023-06-29 09:08:00 Outpatient PATRICIA MCHUGH [facility] [id number] [facility] 2023-06-29 00:00:00 2023-06-29 00:00:00 Outpatient Rutledge_L MMG MM [id number] [facility] 2023-06-29 00:00:00 2023-06-29 00:00:00 Patricia Thomas CAN RECONDITIONER-BC: [address], [address], [place] [address] , Ph. 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 [id number] [facility] 2022-11-20 14:00:00 2022-11-20 14:34:54 Outpatient R CLARICE SMITH [facility] [id number] [facility] 2022-11-20 14:00:00 2022-11-20 14:34:54 Office Visit Clarice Smith [facility] [id number] [facility] 2022-10-23 00:00:00 2022-10-23 00:00:00 Outpatient Rutledge_L MMG MMG [id number] [facility] 2022-10-23 00:00:00 2022-10-23 00:00:00 Outpatient Rutledge_L MMG MMG [id number] [facility] 2022-10-23 00:00:00 2022-10-23 00:00:00 Outpatient Rutledge_L MMG MMG [id number] [facility] 2022-10-01 00:00:00 2022-10-01 00:00:00 Outpatient Rutledge_L MMG MMG [id number] [facility] 2022-09-25 00:00:00 2022-09-25 00:00:00 Outpatient Rutledge_L MMG MMG [id number] [facility] 2022-09-01 00:00:00 2022-09-01 00:00:00 Outpatient Rutledge_L MMG MMG [id number] [facility] 2022-08-05 00:00:00 2022-08-05 00:00:00 Outpatient Rutledge_L MMG MMG [id number] [facility] 2022-06-23 00:00:00 2022-06-23 00:00:00 Outpatient Rutledge_L MMG MMG [id number] [facility] 2022-06-22 00:00:00 2022-06-22 00:00:00 Judy Fernández MD: [address] [place] [address], [place] [address] , Ph. [phone] [facility]L [facility] 0815 [facility] 2022-06-16 00:00:00 2022-06-16 00:00:00 Outpatient Rutledge_L MMG MMG [id number] [facility] 2022-05-08 10:22:00 2022-05-08 10:22:00 Outpatient ARUN ORNELAS [facility] [id number] [facility] 2022-05-08 00:00:00 2022-05-08 00:00:00 Arun Gunter MD: [address] [facility] [address] [address] , Ph. [phone] Rutledge_L [facility] 07 [facility] 2022-03-18 00:00:00 2022-03-18 00:00:00 Arun Gunter MD: [address] [address] , Ph. [phone] Rutledge_L [facility] 0511 [facility] 2021-12-23 09:19:00 2021-12-23 09:19:00 Outpatient Rutledge_L [facility] 214 [facility] 2021-12-18 00:00:00 2021-12-18 00:00:00 [facility] [address] [address] , Ph. [phone] [facility] 0 [facility] 2021-12-17 04:22:00 2021-12-17 04:22:00 Outpatient Rutledge_L [facility] 0209 [facility] 2021-10-10 05:04:00 2021-10-10 05:04:00 Outpatient FLOR YATES AKALLEN [id number] 1203 [facility] 2021-09-17 00:00:00 2021-09-17 00:00:00 [facility] [address] [facility] [address] [address] , Ph. [phone] Rutledge_L [facility] 1110 [facility] 2021-09-02 00:00:00 2021-09-02 00:00:00 [facility] [address] [facility] [address] [address] , Ph. [phone] Rutledge_L [facility] 1026 [facility] 2021-08-27 11:50:00 2021-08-27 11:50:00 Outpatient Rutledge_L [facility] 1020 [facility] 2021-08-19 14:04:00 2021-08-19 14:04:00 Outpatient PATRICIA MCHUGH [facility] [id number] [facility] 2021-08-19 00:00:00 2021-08-19 00:00:00 [facility] [address] [facility] [address] [place] [address] , Ph. [phone] Rutledge_L [facility] 1012 [facility] 2021-04-22 01:40:00 2021-04-22 01:40:00 Outpatient Rutledge_L MMG [facility] 0615 [facility] 2021-04-14 14:56:00 2021-04-14 14:56:00 Outpatient ARUN ORNELAS [facility] [id number] [facility] 2021-04-11 00:00:00 2021-04-11 00:00:00 Arun Gunter MD: [address] [facility] [address] [address] , Ph. [phone] Rutledge_L [facility] 0604 [facility] 2021-03-24 00:00:00 2021-03-24 00:00:00 Arun Gunter MD: [address] [facility], [place] [address] , Ph. [phone] [facility] 2020-12-02 12:46:00 2020-12-02 12:46:00 Outpatient [facility]L [facility] 2020-11-27 03:56:00 2020-11-27 03:56:00 Outpatient [facility]L [facility]12 [facility] 2020-11-25 02:38:00 2020-11-25 02:38:00 Outpatient Rutledge_L [facility] 0118 [facility] 2020-09-25 02:21:00 2020-09-25 02:21:00 Outpatient Rutledge_L [facility] 1117 [facility] 2020-09-24 00:00:00 2020-09-24 00:00:00 Judy Fernández MD: [address] [facility] [address] [address] , Ph. [phone] Rutledge_L [facility] 1116 [facility] 2020-09-14 12:28:00 2020-09-14 12:28:00 Outpatient Rutledge_L [facility] 1107 [facility] 2020-08-20 00:00:00 2020-08-20 00:00:00 YOLIE Roa: [address] [facility] [address] [address] , Ph. [phone] Rutledge_L [facility] 1012 [facility] 2020-08-05 09:06:00 2020-08-05 09:06:00 Outpatient YARY CRUZ [facility] [id number] [facility] 2020-08-05 00:00:00 2020-08-05 00:00:00 Yary Marinelli ROSELIA: [address] [facility] [address], [place] [address] , Ph. [phone] [facility] 2020-05-04 11:32:00 2020-05-04 11:32:00 Outpatient Rutledge_L [facility] 626 [facility] 2020-04-23 00:00:00 2020-04-23 00:00:00 YOLIE Roa: [address] [facility] Suite [facility], [place] [address] , Ph. [phone] Rutledge_L [facility] 0616 [facility] 2020-02-12 05:07:00 2020-02-12 05:07:00 Outpatient [facility]L [facility] 0406 [facility] 2020-01-15 10:29:00 2020-01-15 10:29:00 Outpatient [facility]ledge[facility]L [facility] 0[facility] 2020-01-05 09:41:00 2020-01-05 09:41:00 Outpatient [facility]L [facility] 0228 [facility] 2020-01-04 06:57:00 2020-01-04 06:57:00 Outpatient [facility]L [facility] 7 [facility] 2020-01-02 00:00:00 2020-01-02 00:00:00 Judy Fernández MD: [address] [facility] [address] [address] , Ph. [phone] Rutledge_L [facility] 0225 [facility] 2019-12-19 03:47:00 2019-12-19 03:47:00 Outpatient [facility]ledge[facility]L [facility] 0211 [facility] 2019-12-11 11:19:00 2019-12-11 11:19:00 Outpatient FLOR YATES [facility] [id number] 0203 [facility] 2019-11-21 15:26:00 2019-11-21 18:03:00 Emergency ER AYAZ DURAND [facility] [id number] [facility] 2019-09-19 00:00:00 2019-09-19 00:00:00 YOLIE Roa: [address], [place] [address] , Ph. [phone] [facility] 1112 [facility] 2019-08-02 00:00:00 2019-08-02 00:00:00 Judy Fernández MD: [address], [place] [address] , Ph. [phone] [facility] 0925 [facility] 2019-07-19 00:00:00 2019-07-19 00:00:00 Judy Fernández MD: [address], [place] [address] , Ph. [phone] [facility] 0911 [facility] 2019-07-06 09:19:00 2019-07-06 09:19:00 Outpatient JUDY MARLEY [facility] [id number] [facility] 2019-07-05 00:00:00 2019-07-05 00:00:00 Judy Fernández MD: [address], [place] [address] , Ph. [phone] [facility] 0828 [facility] 2019-06-05 00:00:00 2019-06-05 00:00:00 Judy Fernández MD: [address], [place] [address] , Ph. [phone] [facility] 0729 [facility] 2019-05-08 00:00:00 2019-05-08 00:00:00 Judy Fernández MD: [address], [place] [address] , Ph. [phone] [facility] 07 [facility] 2019-04-17 13:48:00 2019-04-17 19:06:00 Emergency ER MIKE LYONS [facility] [id number] [facility] 2019-04-10 12:12:00 2019-04-10 12:12:00 Outpatient EL JUDY FERNÁNDEZ [facility] [id number] [facility] 2019-04-10 00:00:00 2019-04-10 00:00:00 Judy Fernández MD: [address], [place] [address] , Ph. [phone] [facility] 03 [facility] 2019-04-04 00:00:00 2019-04-04 00:00:00 Bernardo Robles MD: [address], [place] [address] , Ph. [phone] [facility] 0528 [facility] 2019-03-14 12:48:00 2019-03-16 12:45:00 Inpatient ER JUDY FERNÁNDEZ [facility] [id number] [facility] 2019-03-14 00:00:00 2019-03-14 00:00:00 Judy Fernández MD: [address], [place] [address] , Ph. [phone] [facility] [id number] 0507 [facility] 2019-02-27 20:24:00 2019-02-28 07:32:00 Emergency ER OWEN RINCON [facility] [id number] [facility] 2019-02-14 16:28:00 2019-02-16 13:00:00 Inpatient JUDY MARLEY [facility] [id number] [facility] 2019-02-14 00:00:00 2019-02-14 00:00:00 Judy Fernández MD: [address], [place] [address] , Ph. [phone] [facility] [id number] 0409 [facility] 2019-02-07 00:00:00 2019-02-07 00:00:00 Judy Fernández MD: [address], [place] [address] , Ph. [phone] [facility] [id number] 0402 [facility] 2019-01-26 09:24:00 2019-01-26 09:24:00 Outpatient JUDY MARLEY [facility] [id number] [facility] 2019-01-26 00:00:00 2019-01-26 00:00:00 Judy Fernández MD: [address], [place] [address] , Ph. [phone] [facility] [id number] 0321 [facility] 2019-01-24 15:52:00 2019-01-24 15:52:00 Outpatient JUDY MARLEY [facility] [id number] [facility] 2019-01-03 11:55:00 2019-01-03 11:55:00 Outpatient GRETCHEN FERNÁNDEZTRACIJUDY [facility] [id number] [facility] 2019-01-03 00:00:00 2019-01-03 00:00:00 Judy Fernández MD: [address] [facility], [place] [address] , Ph. [phone] [facility] [id number] 0226 [facility] 2018-11-25 20:29:00 2018-11-25 20:29:00 Emergency ER EKATERINA FABIO [facility] [id number] [facility] 2018-01-20 16:27:00 2018-01-20 20:45:00 Emergency ER GRAZYNA PEDRAZA [facility] [id number] [facility] 2017-11-14 14:05:00 2017-11-14 16:35:00 Emergency ER MARY HOLLY [facility] [id number] [facility] 2016-11-09 21:51:00 2016-11-09 23:24:00 Emergency ER RAMIRO MAY [facility] [id number] [facility] 2016-06-26 10:24:00 2016-06-26 10:24:00 Outpatient JUDY MARLEY [facility] [id number] [facility] 2015-11-14 15:25:00 2015-11-14 15:25:00 Outpatient KATELYNN PATEL [facility] [id number] [facility] 2015-11-09 16:47:00 2015-11-09 17:19:00 Emergency ER GRAZYNA PEDRAZA [facility] [id number] [facility] 2015-10-16 14:20:00 2015-10-16 15:56:00 Emergency ER RAMIRO MAY [facility] [id number] [facility] 2015-05-12 12:25:00 2015-05-12 14:27:00 Emergency ER YUNG MEDEIROS [facility] [id number] [facility] 2014-12-23 15:21:00 2014-12-23 20:00:00 Emergency ER Rene Goins [facility] [id number] [facility] 2014-09-11 10:40:00 2014-09-11 10:40:00 Outpatient GRETCHEN JUDY FERNÁNDEZ [facility] [id number] [facility] 2014-09-09 14:01:00 2014-09-09 18:52:00 Emergency ER NATALIE HURD [facility] [id number] [facility] 2014-09-03 08:02:00 2014-09-03 10:15:00 Emergency ER NADINE PINTO [facility] [id number] [facility] 2014-08-06 13:02:00 2014-08-06 13:49:00 Emergency ER LALO CLEMENT [facility] [id number] [facility] 2013-03-30 12:05:00 2013-03-30 13:50:00 Emergency ER LALO CLEMENT [facility] [id number] [facility] 2013-02-01 08:56:00 2013-02-01 09:28:00 Emergency ER OWEN RINCON [facility] [id number] [facility] 2012-09-06 20:15:00 2012-09-06 22:25:00 Emergency ER LALO CLEMENT [facility] [id number] [facility] 2012-05-18 22:48:00 2012-05-19 00:24:00 Emergency ER YUNG MEDEIROS [facility] [id number] [facility] 2011-12-23 07:58:00 2011-12-23 10:25:00 Emergency ER OWEN RINCON [facility] [id number] [facility] 2011-11-11 15:39:00 2011-11-13 10:42:00 Inpatient JUDY MARLEY [facility] [id number] [facility] Results Test Description Test Time Test Comments Results Result Co mments Source [facility] [id number] 10:25:00* Test Item Value Reference Range Interpretation Comme nts HCG quantitative (test code = HCG quantitative) < 0.1 0-5 [facility] macro (dipstick) panel - [id number] 08:30:30* Test Item Value Reference Range Interpretation Comme nts Leukocytes (test code = Leukocytes) Negative Nitrite (test code = Nitrite) negative Urobilinogen (test code = Urobilinogen) 1 Protein (test code = Protein) Negative pH (test code = pH) 6.0 Blood (test code = Blood) Negative Specific Brady (test code = Specific Brady) 1.030 Ketone (test code = Ketone) Negative Bilirubin (test code = Bilirubin) Negative Glucose (test code = Glucose) Negative Appearance (test code = Appearance) Clear Color (test code = Color) Yellow [facility] Grou[facility]regnancy test, [id number] 08:25:46* Test Item Value Reference Range Interpretation Comme nts Test (test code = Test) negative [facility] - cancer [facility] assessment [id number] 07:34:00 * Test Item Value Reference Range Interpretation Comme nts mgh - cancer history assessment result (test code = mgh - cancer history assessment result) meets criteria [facility], [id number] 16:10:50* Test Item Value Reference Range Interpretation Comme nts Test (test code = Test) negative [facility] Center[facility]sc[facility] observation [Identifier] in Vaginal fluid by Wet [id number] 10:17:41* Test Item Value Reference Range Interpretation Comme nts Clue Cells (test code = Clue Cells) negative WBCs (test code = WBCs) negative Trichomonads (test code = Trichomonads) negative Epithelial cells (test code = Epithelial cells) normal RBCs (test code = RBCs) positive [facility], [id number] 18:02:09* Test Item Value Reference Range Interpretation Comme nts Test (test code = Test) negative [facility], [id number] 11:50:35* Test Item Value Reference Range Interpretation Comme nts Test (test code = Test) negative [facility], [id number] 15:40:27* Test Item Value Reference Range Interpretation Comme nts Test (test code = Test) negative [facility], [id number] 14:38:52* Test Item Value Reference Range Interpretation Comme nts Test (test code = Test) negative [facility], [id number] 14:38:52* Test Item Value Reference Range Interpretation Comme nts Test (test code = Test) negative [facility], [id number] 14:38:52* Test Item Value Reference Range Interpretation Comme nts Test (test code = Test) negative [facility] + TV, DNA, urine/[id number] 00:00:00* Test Item Value Reference Range Interpretation Comme nts chlamydia trachomatis by shai l-time PCR (reflex to azithromycin resistance by pyrosequencing) (test code = chlamydia trachomatis by real-time PCR (reflex to azithromycin resistance by pyrosequencing)) negative trichomonas vaginalis by shai l-time PCR (reflex to metronidazole resistance) (test code = trichomonas vaginalis by real-time PCR (reflex to metronidazole resistance)) negative neisseria gonorrhoeae by shai l-time PCR (reflex to antibiotic resistance by molecular analysis) (test code = neisseria gonorrhoeae by real-time PCR (reflex to antibiotic resistance by molecular analysis)) negative [facility] + TV, DNA, urine/[id number] 00:00:00* Test Item Value Reference Range Interpretation Comme nts chlamydia trachomatis by shai l-time PCR (reflex to azithromycin resistance by pyrosequencing) (test code = chlamydia trachomatis by real-time PCR (reflex to azithromycin resistance by pyrosequencing)) negative trichomonas vaginalis by shai l-time PCR (reflex to metronidazole resistance) (test code = trichomonas vaginalis by real-time PCR (reflex to metronidazole resistance)) negative neisseria gonorrhoeae by shai l-time PCR (reflex to antibiotic resistance by molecular analysis) (test code = neisseria gonorrhoeae by real-time PCR (reflex to antibiotic resistance by molecular analysis)) negative [facility] + TV, DNA, urine/[id number] 00:00:00* Test Item Value Reference Range Interpretation Comme nts chlamydia trachomatis by shai l-time PCR (reflex to azithromycin resistance by pyrosequencing) (test code = chlamydia trachomatis by real-time PCR (reflex to azithromycin resistance by pyrosequencing)) negative trichomonas vaginalis by shai l-time PCR (reflex to metronidazole resistance) (test code = trichomonas vaginalis by real-time PCR (reflex to metronidazole resistance)) negative neisseria gonorrhoeae by shai l-time PCR (reflex to antibiotic resistance by molecular analysis) (test code = neisseria gonorrhoeae by real-time PCR (reflex to antibiotic resistance by molecular analysis)) negative [facility], + [id number] 00:00:00* Test Item Value Reference Range Interpretation Comme [facility] HPV type-detect 4.0 by real time PCR high risk subtypes only (test code = HPV type-detect 4.0 by real time PCR high risk subtypes only) not detected liquid Pap test (test code = liquid Pap test) normal [facility], LB + [id number] 00:00:00* Test Item Value Reference Range Interpretation Comme nts HPV type-detect 4.0 by real time PCR high risk subtypes only (test code = HPV type-detect 4.0 by real time PCR high risk subtypes only) not detected liquid Pap test (test code = liquid Pap test) normal [facility], LB + [id number] 00:00:00* Test Item Value Reference Range Interpretation Comme nts HPV type-detect 4.0 by real time PCR high risk subtypes only (test code = HPV type-detect 4.0 by real time PCR high risk subtypes only) not detected liquid Pap test (test code = liquid Pap test) normal [facility] Auto Differential panel - [id number] 12:15:00 * Test Item Value Reference Range Interpretation Comme nts white blood count (test code = white blood count) 5.0 K/uL 4.0-11.5 red blood count (test code = red blood count) 4.15 M/uL 3.80-5.20 hemoglobin (test code = hemoglobin) 12.9 g/dL 10.5-15.7 hematocrit (test code = hematocrit) 40.9 % 34.0-50.0 MCV [Entitic volume] (test c ode = 13620-2) 98.6 fL 86-100 mean corpuscular hemoglobin (test code = mean corpuscular hemoglobin) 31.1 pg 26.2-33.4 mean corpuscular HGB conc (t est code = mean corpuscular HGB conc) 31.5 g/dL 30-34 red cell distribution width (test code = red cell distribution width) 11.9 % 12.0-15.5 L platelet count (test code = platelet count) 215 K/uL 165-450 mean platelet volume (test c ode = mean platelet volume) 11.5 fL 9.4-12.6 Segmented neutrophils/100 leukocytes in Blood (test code = 47199-8) 46.5 % 44.4-80.1 Immature granulocytes [#/vol ume] in Blood (test code = 76209-5) 0.0 K/uL 0.0-0.03 lymphocyte% (test code = lymphocyte%) 44.6 % 10.0-50.0 mono % (test code = mono %) 6.3 % 3.6-12.0 eos % (test code = eos %) 1.6 % 0.0-5.4 Basophils/100 leukocytes in Unspecified specimen (test code = 66687-6) 1.0 % 0.1-1.2 Band form neutrophils [#/vol ume] in Blood (test code = 44914-7) 2.34 K/uL 1.56-6.13 Lymphocytes [#/volume] in Unspecified specimen by Automated count (test code = 88378-4) 2.3 K/uL 1.18-3.74 mono # (test code = mono #) 0.32 K/uL 0.24-0.86 eos # (test code = eos #) 0.08 K/uL 0.04-0.36 basophil # (test code = baso damir #) 0.05 K/uL 0.01-0.08 NRBC% (test code = NRBC%) 0 /100 WBC 0-0.2 NRBC# (test code = NRBC#) 0 K/uL [facility] 2000 panel - Serum or Plasma 2021-08-19 12:15:00* Test Item Value Reference Range Interpretation Comme nts glucose (test code = glucose) 51 mg/dL 74-106 L Urea nitrogen [Mass/volume] in Serum or Plasma (test code = 3094-0) 9 mg/dL 6-20 osmolality calculated,serum (test code = osmolality calculated,serum) 275 mOsm/kg 280-300 L creatinine (test code = creatinine) 0.9 mg/dL 0.50-0.90 glomerular filtration rate ( test code = glomerular filtration rate) >60.00 Urea nitrogen/Creatinine [Ma ss Ratio] in Serum or Plasma (test code = 3097-3) 10.0 12-20 L sodium level (test code = so dium level) 140 mmol/L 135-145 Potassium [Moles/volume] in Body fluid (test code = 2821-7) 3.9 mmol/L 3.5-5.2 chloride level (test code = chloride level) 103 mmol/L 98-108 CO2 (test code = CO2) 26 mmol/L 21-32 anion gap (test code = anion gap) 14.9 mEq/L 12-20 calcium level (test code = calcium level) 9.5 mg/dL 8.6-10.0 total protein (test code = t otal protein) 7.8 g/dL 6.6-8.7 albumin (test code = albumin) 4.6 g/dL 3.5-5.2 globulin (test code = globulin) 3.2 gm/dL A/G ratio (test code = A/G ratio) 1.4 >1.0 bilirubin,total (test code = bilirubin,total) <0.3 0.0-1.2 AST/SGOT (test code = AST/SGOT) 17 U/L 15-32 Alanine aminotransferase [Enzymatic activity/volume] in Serum or Plasma (test code = 1742-6) 17 U/L 0-33 Alkaline phosphatase [Enzyma tic activity/volume] in Serum or Plasma (test code = 6768-6) 66 U/L 35-105 [facility] W Auto Differential panel - [id number] 12:15:00 * Test Item Value Reference Range Interpretation Comme nts white blood count (test code = white blood count) 5.0 K/uL 4.0-11.5 red blood count (test code = red blood count) 4.15 M/uL 3.80-5.20 hemoglobin (test code = hemoglobin) 12.9 g/dL 10.5-15.7 hematocrit (test code = hematocrit) 40.9 % 34.0-50.0 MCV [Entitic volume] (test c ode = 50958-6) 98.6 fL 86-100 mean corpuscular hemoglobin (test code = mean corpuscular hemoglobin) 31.1 pg 26.2-33.4 mean corpuscular HGB conc (t est code = mean corpuscular HGB conc) 31.5 g/dL 30-34 red cell distribution width (test code = red cell distribution width) 11.9 % 12.0-15.5 L platelet count (test code = platelet count) 215 K/uL 165-450 mean platelet volume (test c ode = mean platelet volume) 11.5 fL 9.4-12.6 Segmented neutrophils/100 leukocytes in Blood (test code = 99818-8) 46.5 % 44.4-80.1 Immature granulocytes [#/vol ume] in Blood (test code = 74989-5) 0.0 K/uL 0.0-0.03 lymphocyte% (test code = lymphocyte%) 44.6 % 10.0-50.0 mono % (test code = mono %) 6.3 % 3.6-12.0 eos % (test code = eos %) 1.6 % 0.0-5.4 Basophils/100 leukocytes in Unspecified specimen (test code = 64019-4) 1.0 % 0.1-1.2 Band form neutrophils [#/vol ume] in Blood (test code = 87667-8) 2.34 K/uL 1.56-6.13 Lymphocytes [#/volume] in Unspecified specimen by Automated count (test code = 85235-7) 2.3 K/uL 1.18-3.74 mono # (test code = mono #) 0.32 K/uL 0.24-0.86 eos # (test code = eos #) 0.08 K/uL 0.04-0.36 basophil # (test code = baso damir #) 0.05 K/uL 0.01-0.08 NRBC% (test code = NRBC%) 0 /100 WBC 0-0.2 NRBC# (test code = NRBC#) 0 K/uL [facility] 2000 [facility] - Serum or Plasma 2021-08-19 12:15:00* Test Item Value Reference Range Interpretation Comme nts glucose (test code = glucose) 51 mg/dL 74-106 L Urea nitrogen [Mass/volume] in Serum or Plasma (test code = 3094-0) 9 mg/dL 6-20 osmolality calculated,serum (test code = osmolality calculated,serum) 275 mOsm/kg 280-300 L creatinine (test code = creatinine) 0.9 mg/dL 0.50-0.90 glomerular filtration rate ( test code = glomerular filtration rate) >60.00 Urea nitrogen/Creatinine [Ma ss Ratio] in Serum or Plasma (test code = 3097-3) 10.0 12-20 L sodium level (test code = so dium level) 140 mmol/L 135-145 Potassium [Moles/volume] in Body fluid (test code = 2821-7) 3.9 mmol/L 3.5-5.2 chloride level (test code = chloride level) 103 mmol/L 98-108 CO2 (test code = CO2) 26 mmol/L 21-32 anion gap (test code = anion gap) 14.9 mEq/L 12-20 calcium level (test code = calcium level) 9.5 mg/dL 8.6-10.0 total protein (test code = t otal protein) 7.8 g/dL 6.6-8.7 albumin (test code = albumin) 4.6 g/dL 3.5-5.2 globulin (test code = globulin) 3.2 gm/dL A/G ratio (test code = A/G ratio) 1.4 >1.0 bilirubin,total (test code = bilirubin,total) <0.3 0.0-1.2 AST/SGOT (test code = AST/SGOT) 17 U/L 15-32 Alanine aminotransferase [Enzymatic activity/volume] in Serum or Plasma (test code = 1742-6) 17 U/L 0-33 Alkaline phosphatase [Enzyma tic activity/volume] in Serum or Plasma (test code = 6768-6) 66 U/L 35-105 [facility] Auto Differential panel - [id number] 12:15:00 * Test Item Value Reference Range Interpretation Comme nts white blood count (test code = white blood count) 5.0 K/uL 4.0-11.5 red blood count (test code = red blood count) 4.15 M/uL 3.80-5.20 hemoglobin (test code = hemoglobin) 12.9 g/dL 10.5-15.7 hematocrit (test code = hematocrit) 40.9 % 34.0-50.0 MCV [Entitic volume] (test c ode = 17364-7) 98.6 fL 86-100 mean corpuscular hemoglobin (test code = mean corpuscular hemoglobin) 31.1 pg 26.2-33.4 mean corpuscular HGB conc (t est code = mean corpuscular HGB conc) 31.5 g/dL 30-34 red cell distribution width (test code = red cell distribution width) 11.9 % 12.0-15.5 L platelet count (test code = platelet count) 215 K/uL 165-450 mean platelet volume (test c ode = mean platelet volume) 11.5 fL 9.4-12.6 Segmented neutrophils/100 leukocytes in Blood (test code = 16142-0) 46.5 % 44.4-80.1 Immature granulocytes [#/vol ume] in Blood (test code = 67809-5) 0.0 K/uL 0.0-0.03 lymphocyte% (test code = lymphocyte%) 44.6 % 10.0-50.0 mono % (test code = mono %) 6.3 % 3.6-12.0 eos % (test code = eos %) 1.6 % 0.0-5.4 Basophils/100 leukocytes in Unspecified specimen (test code = 99454-4) 1.0 % 0.1-1.2 Band form neutrophils [#/vol ume] in Blood (test code = 20944-6) 2.34 K/uL 1.56-6.13 Lymphocytes [#/volume] in Unspecified specimen by Automated count (test code = 63678-9) 2.3 K/uL 1.18-3.74 mono # (test code = mono #) 0.32 K/uL 0.24-0.86 eos # (test code = eos #) 0.08 K/uL 0.04-0.36 basophil # (test code = baso damir #) 0.05 K/uL 0.01-0.08 NRBC% (test code = NRBC%) 0 /100 WBC 0-0.2 NRBC# (test code = NRBC#) 0 K/uL [facility] 2000 [facility] - Serum or Plasma 2021-08-19 12:15:00* Test Item Value Reference Range Interpretation Comme nts glucose (test code = glucose) 51 mg/dL 74-106 L Urea nitrogen [Mass/volume] in Serum or Plasma (test code = 3094-0) 9 mg/dL 6-20 osmolality calculated,serum (test code = osmolality calculated,serum) 275 mOsm/kg 280-300 L creatinine (test code = creatinine) 0.9 mg/dL 0.50-0.90 glomerular filtration rate ( test code = glomerular filtration rate) >60.00 Urea nitrogen/Creatinine [Ma ss Ratio] in Serum or Plasma (test code = 3097-3) 10.0 12-20 L sodium level (test code = so dium level) 140 mmol/L 135-145 Potassium [Moles/volume] in Body fluid (test code = 2821-7) 3.9 mmol/L 3.5-5.2 chloride level (test code = chloride level) 103 mmol/L 98-108 CO2 (test code = CO2) 26 mmol/L 21-32 anion gap (test code = anion gap) 14.9 mEq/L 12-20 calcium level (test code = calcium level) 9.5 mg/dL 8.6-10.0 total protein (test code = t otal protein) 7.8 g/dL 6.6-8.7 albumin (test code = albumin) 4.6 g/dL 3.5-5.2 globulin (test code = globulin) 3.2 gm/dL A/G ratio (test code = A/G ratio) 1.4 >1.0 bilirubin,total (test code = bilirubin,total) <0.3 0.0-1.2 AST/SGOT (test code = AST/SGOT) 17 U/L 15-32 Alanine aminotransferase [Enzymatic activity/volume] in Serum or Plasma (test code = 1742-6) 17 U/L 0-33 Alkaline phosphatase [Enzyma tic activity/volume] in Serum or Plasma (test code = 6768-6) 66 U/L 35-105 [facility]Reagin Ab [Presence] in Serum by [id number] 00:00:00* Test Item Value Reference Range Interpretation Comme nts Reagin Ab [Presence] in Seru m by RPR (test code = 83096-6) nonreactive nonreactive [facility] CenterDifferential panel, method unspecified - [id number] 00:00:00NeutrophilsBandLymphocyteAtypical LymphMonocyteEosinophilBasophilMetamyelocyteMyelocytePromyelocyteBlastsNucleated Red Blood CellAbs Neutrophil Count (Man)Abs Lymph Count (Man)Abs Monocyte Count (Man)Abs Eosinophil Count (Man)Abs Basophil Count (Man)Platelet EstimatePlatelet MorphologyPolychromasiaMacrocytosisHypersegmented Polys [facility] CenterThyrotropin [Units/volume] in Serum or [id number] 00:00:00* Test Item Value Reference Range Interpretation Comme nts Thyrotropin [Units/volume] i n Serum or Plasma (test code = 3016-3) 0.95 uIU/mL 0.36-3.74 [facility] CenterThyroxine (T4) free [Mass/volume] in Serum or Plasma 2021-08-19 00:00:00* Test Item Value Reference Range Interpretation Comme nts free T4 (test code = free T4) 0.96 NG/dL 0.93-1.7 [facility]HIV 1+2 Ab [Presence] in [id number] 00:00:00HIV P24 AgHIV-1/2 AbUniversity [facility] Medical CenterHepatitis B virus surface Ag [Presence] in [id number] 00:00:00* Test Item Value Reference Range Interpretation Comme nts .hepatitis B surface antigen (test code = .hepatitis B surface antigen) negative negative [facility] CenterReagin Ab [Presence] in Serum by [id number] 00:00:00* Test Item Value Reference Range Interpretation Comme nts Reagin Ab [Presence] in Seru m by RPR (test code = 19227-3) nonreactive nonreactive [facility] CenterDifferential panel, method unspecified - [id number] 00:00:00NeutrophilsBandLymphocyteAtypical LymphMonocyteEosinophilBasophilMetamyelocyteMyelocytePromyelocyteBlastsNucleated Red Blood CellAbs Neutrophil Count (Man)Abs Lymph Count (Man)Abs Monocyte Count (Man)Abs Eosinophil Count (Man)Abs Basophil Count (Man)Platelet EstimatePlatelet MorphologyPolychromasiaMacrocytosisHypersegmented Polys [facility] CenterThyrotropin [Units/volume] in Serum or [id number] 00:00:00* Test Item Value Reference Range Interpretation Comme nts Thyrotropin [Units/volume] i n Serum or Plasma (test code = 3016-3) 0.95 uIU/mL 0.36-3.74 [facility] CenterThyroxine (T4) free [Mass/volume] in Serum or Plasma 2021-08-19 00:00:00* Test Item Value Reference Range Interpretation Comme nts free T4 (test code = free T4) 0.96 NG/dL 0.93-1.7 [facility]HIV 1+2 Ab [Presence] in [id number] 00:00:00HIV P24 AgHIV-1/2 AbUniversity [facility] Medical CenterHepatitis B virus surface Ag [Presence] in [id number] 00:00:00* Test Item Value Reference Range Interpretation Comme nts .hepatitis B surface antigen (test code = .hepatitis B surface antigen) negative negative [facility] CenterReagin Ab [Presence] in Serum by [id number] 00:00:00* Test Item Value Reference Range Interpretation Comme nts Reagin Ab [Presence] in Seru m by RPR (test code = 31513-3) nonreactive nonreactive [facility] CenterDifferential panel, method unspecified - [id number] 00:00:00NeutrophilsBandLymphocyteAtypical LymphMonocyteEosinophilBasophilMetamyelocyteMyelocytePromyelocyteBlastsNucleated Red Blood CellAbs Neutrophil Count (Man)Abs Lymph Count (Man)Abs Monocyte Count (Man)Abs Eosinophil Count (Man)Abs Basophil Count (Man)Platelet EstimatePlatelet MorphologyPolychromasiaMacrocytosisHypersegmented Polys [facility] CenterThyrotropin [Units/volume] in Serum or [id number] 00:00:00* Test Item Value Reference Range Interpretation Comme nts Thyrotropin [Units/volume] i n Serum or Plasma (test code = 3016-3) 0.95 uIU/mL 0.36-3.74 [facility] CenterThyroxine (T4) free [Mass/volume] in Serum or Plasma 2021-08-19 00:00:00* Test Item Value Reference Range Interpretation Comme nts free T4 (test code = free T4) 0.96 NG/dL 0.93-1.7 [facility] CenterHIV 1+2 Ab [Presence] in [id number] 00:00:00HIV P24 AgHIV-1/2 AbMaMississippi [facility] HospitalHepatitis B virus surface Ag [Presence] in [id number] 00:00:00* Test Item Value Reference Range Interpretation Comme nts .hepatitis B surface antigen (test code = .hepatitis B surface antigen) negative negative [facility] CenterUrinalysis macro (dipstick) panel - [id number] 16:06:55* Test Item Value Reference Range Interpretation Comme nts Leukocytes (test code = Leukocytes) Negative Nitrite (test code = Nitrite) negative Urobilinogen (test code = Urobilinogen) .2 Protein (test code = Protein) Negative pH (test code = pH) 7.0 Blood (test code = Blood) Non-Hemolyzed: Trace Specific Brady (test code = Specific Brady) 1.020 Ketone (test code = Ketone) Negative Bilirubin (test code = Bilirubin) Negative Glucose (test code = Glucose) Negative Appearance (test code = Appearance) Clear Color (test code = Color) Yellow [facility], [id number] 16:22:27* Test Item Value Reference Range Interpretation Comme nts Test (test code = Test) negative [facility], [id number] 16:22:27* Test Item Value Reference Range Interpretation Comme nts Test (test code = Test) negative [facility] GroupUrinalysis macro (dipstick) panel - [id number] 16:22:10* Test Item Value Reference Range Interpretation Comme nts Leukocytes (test code = Leukocytes) Negative Nitrite (test code = Nitrite) negative Urobilinogen (test code = Urobilinogen) .2 Protein (test code = Protein) Negative pH (test code = pH) 7.0 Blood (test code = Blood) Negative Specific Brady (test code = Specific Brady) 1.025 Ketone (test code = Ketone) Negative Bilirubin (test code = Bilirubin) Negative Glucose (test code = Glucose) Negative Appearance (test code = Appearance) Clear Color (test code = Color) Yellow [facility] GroupUrinalysis macro (dipstick) panel - [id number] 16:22:10* Test Item Value Reference Range Interpretation Comme nts Leukocytes (test code = Leukocytes) Negative Nitrite (test code = Nitrite) negative Urobilinogen (test code = Urobilinogen) .2 Protein (test code = Protein) Negative pH (test code = pH) 7.0 Blood (test code = Blood) Negative Specific Brady (test code = Specific Brady) 1.025 Ketone (test code = Ketone) Negative Bilirubin (test code = Bilirubin) Negative Glucose (test code = Glucose) Negative Appearance (test code = Appearance) Clear Color (test code = Color) Yellow [facility] GroupReagin Ab [Presence] in Serum by [id number] 06:56:00* Test Item Value Reference Range Interpretation Comme nts Reagin Ab [Presence] in Seru m by RPR (test code = 13901-6) nonreactive nonreactive [facility] GroupHIV 1+2 Ab [Presence] in [id number] 06:56:00HIV P24 AgHIV-1/2 AbMat[facility] GroupHepatitis B virus surface Ag [Presence] in [id number] 06:56:00* Test Item Value Reference Range Interpretation Comme nts .hepatitis B surface antigen (test code = .hepatitis B surface antigen) negative negative [facility] GroupHepatitis C virus RNA [Units/volume] (viral load) in Serum or Plasma by Probe with signal [id number] 06:56:00* Test Item Value Reference Range Interpretation Comme nts hepatitis C RNA CHICO,qual (te st code = hepatitis C RNA CHICO,qual) negative negative [facility] Grouppregnancy test, [id number] 11:12:00* Test Item Value Reference Range Interpretation Comme nts Test (test code = Test) negative [facility] CenterFetal Biophysical profile panel [id number] 09:13:00* Test Item Value Reference Range Interpretation Comme nts Amniotic Fluid Index (test c ode = Amniotic Fluid Index) 2 Tone (test code = Tone) 2 Breathing (test code = Breathing) 2 Movement (test code = Movement) 2 [facility] CenterFetal Biophysical profile panel [id number] 09:13:00* Test Item Value Reference Range Interpretation Comme nts Amniotic Fluid Index (test c ode = Amniotic Fluid Index) 2 Tone (test code = Tone) 2 Breathing (test code = Breathing) 2 Movement (test code = Movement) 2 [facility] GroupF[facility]ophysical profile panel [id number] 09:13:00* Test Item Value Reference Range Interpretation Comme nts Amniotic Fluid Index (test c ode = Amniotic Fluid Index) 2 Tone (test code = Tone) 2 Breathing (test code = Breathing) 2 Movement (test code = Movement) 2 [facility] GroupUrinalysis macro (dipstick) panel - [id number] 09:21:00* Test Item Value Reference Range Interpretation Comme nts Leukocytes (test code = Leukocytes) Trace Nitrite (test code = Nitrite) negative Urobilinogen (test code = Urobilinogen) .2 Protein (test code = Protein) Negative pH (test code = pH) 7.0 Blood (test code = Blood) Negative Specific Brady (test code = Specific Brady) 1.020 Ketone (test code = Ketone) Negative Bilirubin (test code = Bilirubin) Negative Glucose (test code = Glucose) Negative Appearance (test code = Appearance) Clear Color (test code = Color) Dark Yellow [facility] GroupUrinalysis macro (dipstick) panel - [id number] 11:07:00* Test Item Value Reference Range Interpretation Comme nts Leukocytes (test code = Leukocytes) Negative Nitrite (test code = Nitrite) negative Urobilinogen (test code = Urobilinogen) 1 Protein (test code = Protein) Negative pH (test code = pH) 7.0 Blood (test code = Blood) Negative Specific Brady (test code = Specific Brady) 1.020 Ketone (test code = Ketone) Negative Bilirubin (test code = Bilirubin) Negative Glucose (test code = Glucose) Negative Appearance (test code = Appearance) Clear Color (test code = Color) Yellow [facility] GroupCandida sp DNA [Presence] in Vaginal fluid by Probe and target amplification [id number] 00:00:00* Test Item Value Reference Range Interpretation Comme nts luis m albicans by real-esme e PCR (test code = luis m albicans by real-time PCR) positive A luis m tropicalis by real-t dennis PCR (test code = luis m tropicalis by real-time PCR) negative luis m parapsilosis by real -time PCR (test code = luis m parapsilosis by real-time PCR) negative luis m glabrata by real-esme e PCR (test code = luis m glabrata by real-time PCR) negative [facility] GroupCandida sp DNA [Presence] in Vaginal fluid by Probe and target amplification [id number] 00:00:00* Test Item Value Reference Range Interpretation Comme nts luis m albicans by real-esme e PCR (test code = luis m albicans by real-time PCR) positive A luis m tropicalis by real-t dennis PCR (test code = luis m tropicalis by real-time PCR) negative luis m parapsilosis by real -time PCR (test code = luis m parapsilosis by real-time PCR) negative luis m glabrata by real-esme e PCR (test code = luis m glabrata by real-time PCR) negative [facility] GroupCandida sp DNA [Presence] in Vaginal fluid by Probe and target amplification [id number] 00:00:00* Test Item Value Reference Range Interpretation Comme nts luis m albicans by real-esme e PCR (test code = luis m albicans by real-time PCR) positive A luis m tropicalis by real-t dennis PCR (test code = luis m tropicalis by real-time PCR) negative luis m parapsilosis by real -time PCR (test code = luis m parapsilosis by real-time PCR) negative luis m glabrata by real-esme e PCR (test code = luis m glabrata by real-time PCR) negative [facility] GroupCol[facility] count [#/volume] in [id number] 00:00:00* Test Item Value Reference Range Interpretation Comme nts group B streptococcus (gbs) by real-time PCR (test code = group B streptococcus (gbs) by real-time PCR) negative escherichia coli by real-esme e PCR (test code = escherichia coli by real-time PCR) negative proteus mirabilis by real-ti me PCR (test code = proteus mirabilis by real-time PCR) negative staphylococcus saprophyticus by real-time PCR (test code = staphylococcus saprophyticus by real-time PCR) negative enterococcus faecalis by shai l-time PCR (test code = enterococcus faecalis by real-time PCR) negative enterococcus faecium by real -time PCR (test code = enterococcus faecium by real-time PCR) negative klebsiella species by real-t dennis PCR (reflex to speciation by pyrosequencing) (test code = klebsiella species by real-time PCR (reflex to speciation by pyrosequencing)) negative pseudomonas aeruginosa by re al-time PCR (test code = pseudomonas aeruginosa by real-time PCR) negative [facility] Groupbacterial vaginosis panel, [id number] 00:00:00* Test Item Value Reference Range Interpretation Comme nts gardnerella vaginalis by real-time PCR (test code = gardnerella vaginalis by real-time PCR) positive A atopobium vaginae by real-ti me PCR (test code = atopobium vaginae by real-time PCR) positive A bacterial vaginosis associat ed bacterium 2 (bvab2) by real-time PCR (test code = bacterial vaginosis associated bacterium 2 (bvab2) by real-time PCR) positive A megasphaera species (type 1 and type 2) by real-time PCR (test code = megasphaera species (type 1 and type 2) by real-time PCR) positive A lactobacillus (bv & av panel ) by real time PCR (test code = lactobacillus (bv & av panel) by real time PCR) see comment [facility] CenterColony count [#/volume] in [id number] 00:00:00* Test Item Value Reference Range Interpretation Comme nts group B streptococcus (gbs) by real-time PCR (test code = group B streptococcus (gbs) by real-time PCR) negative escherichia coli by real-esme e PCR (test code = escherichia coli by real-time PCR) negative proteus mirabilis by real-ti me PCR (test code = proteus mirabilis by real-time PCR) negative staphylococcus saprophyticus by real-time PCR (test code = staphylococcus saprophyticus by real-time PCR) negative enterococcus faecalis by shai l-time PCR (test code = enterococcus faecalis by real-time PCR) negative enterococcus faecium by real -time PCR (test code = enterococcus faecium by real-time PCR) negative klebsiella species by real-t dennis PCR (reflex to speciation by pyrosequencing) (test code = klebsiella species by real-time PCR (reflex to speciation by pyrosequencing)) negative pseudomonas aeruginosa by re al-time PCR (test code = pseudomonas aeruginosa by real-time PCR) negative [facility] Centerb[facility] vaginosis panel, [id number] 00:00:00* Test Item Value Reference Range Interpretation Comme nts gardnerella vaginalis by real-time PCR (test code = gardnerella vaginalis by real-time PCR) positive A atopobium vaginae by real-ti me PCR (test code = atopobium vaginae by real-time PCR) positive A bacterial vaginosis associat ed bacterium 2 (bvab2) by real-time PCR (test code = bacterial vaginosis associated bacterium 2 (bvab2) by real-time PCR) positive A megasphaera species (type 1 and type 2) by real-time PCR (test code = megasphaera species (type 1 and type 2) by real-time PCR) positive A lactobacillus (bv & av panel ) by real time PCR (test code = lactobacillus (bv & av panel) by real time PCR) see comment [facility] CenterCol[facility] count [#/volume] in [id number] 00:00:00* Test Item Value Reference Range Interpretation Comme nts group B streptococcus (gbs) by real-time PCR (test code = group B streptococcus (gbs) by real-time PCR) negative escherichia coli by real-esme e PCR (test code = escherichia coli by real-time PCR) negative proteus mirabilis by real-ti me PCR (test code = proteus mirabilis by real-time PCR) negative staphylococcus saprophyticus by real-time PCR (test code = staphylococcus saprophyticus by real-time PCR) negative enterococcus faecalis by shai l-time PCR (test code = enterococcus faecalis by real-time PCR) negative enterococcus faecium by real -time PCR (test code = enterococcus faecium by real-time PCR) negative klebsiella species by real-t dennis PCR (reflex to speciation by pyrosequencing) (test code = klebsiella species by real-time PCR (reflex to speciation by pyrosequencing)) negative pseudomonas aeruginosa by re al-time PCR (test code = pseudomonas aeruginosa by real-time PCR) negative [facility]osis panel, [id number] 00:00:00* Test Item Value Reference Range Interpretation Comme nts gardnerella vaginalis by real-time PCR (test code = gardnerella vaginalis by real-time PCR) positive A atopobium vaginae by real-ti me PCR (test code = atopobium vaginae by real-time PCR) positive A bacterial vaginosis associat ed bacterium 2 (bvab2) by real-time PCR (test code = bacterial vaginosis associated bacterium 2 (bvab2) by real-time PCR) positive A megasphaera species (type 1 and type 2) by real-time PCR (test code = megasphaera species (type 1 and type 2) by real-time PCR) positive A lactobacillus (bv & av panel ) by real time PCR (test code = lactobacillus (bv & av panel) by real time PCR) see comment [facility] GroupS[facility] [id number] 09:45:00Results [facility] GroupS[facility] [id number] 09:45:00Results [facility] GroupS[facility] [id number] 09:45:00Results [facility] GroupCBC W Auto Differential panel - [id number] 04:12:00 * Test Item Value Reference Range Interpretation Comme nts white blood count (test code = white blood count) 7.2 K/uL 4.0-11.5 red blood count (test code = red blood count) 3.69 M/uL 3.80-5.20 L Hemoglobin [Mass/volume] in Blood (test code = 718-7) 11.5 g/dL 10.5-15.7 hematocrit (test code = hematocrit) 35.0 % 34.0-50.0 Erythrocyte mean corpuscular volume [Entitic volume] (test code = 39562-8) 94.8 fL 78-98 Erythrocyte mean corpuscular hemoglobin [Entitic mass] (test code = 33589-1) 31.3 pg 26.2-33.4 mean corpuscular HGB conc (t est code = mean corpuscular HGB conc) 33.0 g/dL 31.5-36.2 red cell distribution width (test code = red cell distribution width) 11.3 % 11.5-15.5 L Platelets [#/volume] in Bloo d (test code = 25258-2) 221 K/uL 137-338 Platelet mean volume [Entiti c volume] in Blood (test code = 63048-8) 8.5 fL 8.4-11.8 Neutrophils.band form/100 leukocytes in Blood (test code = 36419-3) 95.1 % 44.4-80.1 Lymphocytes/100 leukocytes i n Body fluid (test code = 45083-0) 4.0 % 10.0-50.0 L Monocytes/100 leukocytes in Blood by Automated count (test code = 5905-5) 0.6 % 3.6-12.04 L Eosinophils/100 leukocytes i n Blood by Automated count (test code = 713-8) 0.1 % 0.0-5.41 Basophils/100 leukocytes in Unspecified specimen (test code = 76633-0) 0.2 % 0.0-0.79 [facility]differential panel, [id number] 04:12:00 NeutrophilsBandLymphocyteAtypical LymphMonocyteEosinophilBasophilPlatelet EstimatePlatelet MorphologyTarget CellsToxic GranulationToxic Vacuolation [facility] CenterCB W Auto Differential panel - [id number] 04:12:00 * Test Item Value Reference Range Interpretation Comme nts white blood count (test code = white blood count) 7.2 K/uL 4.0-11.5 red blood count (test code = red blood count) 3.69 M/uL 3.80-5.20 L Hemoglobin [Mass/volume] in Blood (test code = 718-7) 11.5 g/dL 10.5-15.7 hematocrit (test code = hematocrit) 35.0 % 34.0-50.0 Erythrocyte mean corpuscular volume [Entitic volume] (test code = 83437-1) 94.8 fL 78-98 Erythrocyte mean corpuscular hemoglobin [Entitic mass] (test code = 82707-0) 31.3 pg 26.2-33.4 mean corpuscular HGB conc (t est code = mean corpuscular HGB conc) 33.0 g/dL 31.5-36.2 red cell distribution width (test code = red cell distribution width) 11.3 % 11.5-15.5 L Platelets [#/volume] in Bloo d (test code = 25962-4) 221 K/uL 137-338 Platelet mean volume [Entiti c volume] in Blood (test code = 51383-0) 8.5 fL 8.4-11.8 Neutrophils.band form/100 leukocytes in Blood (test code = 26535-1) 95.1 % 44.4-80.1 Lymphocytes/100 leukocytes i n Body fluid (test code = 48684-2) 4.0 % 10.0-50.0 L Monocytes/100 leukocytes in Blood by Automated count (test code = 5905-5) 0.6 % 3.6-12.04 L Eosinophils/100 leukocytes i n Blood by Automated count (test code = 713-8) 0.1 % 0.0-5.41 Basophils/100 leukocytes in Unspecified specimen (test code = 09163-4) 0.2 % 0.0-0.79 [facility] [id number] 04:12:00 NeutrophilsBandLymphocyteAtypical LymphMonocyteEosinophilBasophilPlatelet EstimatePlatelet MorphologyTarget CellsToxic GranulationToxic Vacuolation [facility] Differential panel - [id number] 04:12:00 * Test Item Value Reference Range Interpretation Comme nts white blood count (test code = white blood count) 7.2 K/uL 4.0-11.5 red blood count (test code = red blood count) 3.69 M/uL 3.80-5.20 L Hemoglobin [Mass/volume] in Blood (test code = 718-7) 11.5 g/dL 10.5-15.7 hematocrit (test code = hematocrit) 35.0 % 34.0-50.0 Erythrocyte mean corpuscular volume [Entitic volume] (test code = 01548-2) 94.8 fL 78-98 Erythrocyte mean corpuscular hemoglobin [Entitic mass] (test code = 77219-2) 31.3 pg 26.2-33.4 mean corpuscular HGB conc (t est code = mean corpuscular HGB conc) 33.0 g/dL 31.5-36.2 red cell distribution width (test code = red cell distribution width) 11.3 % 11.5-15.5 L Platelets [#/volume] in Bloo d (test code = 37064-0) 221 K/uL 137-338 Platelet mean volume [Entiti c volume] in Blood (test code = 11742-1) 8.5 fL 8.4-11.8 Neutrophils.band form/100 leukocytes in Blood (test code = 32113-2) 95.1 % 44.4-80.1 Lymphocytes/100 leukocytes i n Body fluid (test code = 40368-1) 4.0 % 10.0-50.0 L Monocytes/100 leukocytes in Blood by Automated count (test code = 5905-5) 0.6 % 3.6-12.04 L Eosinophils/100 leukocytes i n Blood by Automated count (test code = 713-8) 0.1 % 0.0-5.41 Basophils/100 leukocytes in Unspecified specimen (test code = 74920-0) 0.2 % 0.0-0.79 [facility], [id number] 04:12:00 NeutrophilsBandLymphocyteAtypical LymphMonocyteEosinophilBasophilPlatelet EstimatePlatelet MorphologyTarget CellsToxic GranulationToxic Vacuolation [facility] Differential panel - [id number] 03:30:00 * Test Item Value Reference Range Interpretation Comme nts white blood count (test code = white blood count) 4.3 K/uL 4.0-11.5 red blood count (test code = red blood count) 3.20 M/uL 3.80-5.20 L Hemoglobin [Mass/volume] in Blood (test code = 718-7) 10.0 g/dL 10.5-15.7 L hematocrit (test code = hematocrit) 30.6 % 34.0-50.0 Erythrocyte mean corpuscular volume [Entitic volume] (test code = 06493-6) 95.8 fL 78-98 Erythrocyte mean corpuscular hemoglobin [Entitic mass] (test code = 29736-4) 31.2 pg 26.2-33.4 mean corpuscular HGB conc (t est code = mean corpuscular HGB conc) 32.6 g/dL 31.5-36.2 red cell distribution width (test code = red cell distribution width) 11.2 % 11.5-15.5 L Platelets [#/volume] in Bloo d (test code = 04573-6) 184 K/uL 137-338 Platelet mean volume [Entiti c volume] in Blood (test code = 11528-1) 8.4 fL 8.4-11.8 Neutrophils.band form/100 leukocytes in Blood (test code = 42809-7) 59.6 % 44.4-80.1 Lymphocytes/100 leukocytes i n Body fluid (test code = 52753-1) 31.9 % 10.0-50.0 Monocytes/100 leukocytes in Blood by Automated count (test code = 5905-5) 5.9 % 3.6-12.04 Eosinophils/100 leukocytes i n Blood by Automated count (test code = 713-8) 1.0 % 0.0-5.41 Basophils/100 leukocytes in Unspecified specimen (test code = 91691-4) 1.5 % 0.0-0.79 [facility], [id number] 03:30:00 NeutrophilsLymphocyteMonocytePlatelet EstimatePlatelet MorphologyMaMississippi State HospitalComprehensive metabolic 2000 panel - Serum or [id number] 03:30:00* Test Item Value Reference Range Interpretation Comme nts glucose (test code = glucose) 116 mg/dL 74-106 H Urea nitrogen [Mass/volume] in Serum or Plasma (test code = 3094-0) 3 mg/dL 6-20 L Osmolality of Serum or Plasm a (test code = 2692-2) 268 280-300 L creatinine (test code = creatinine) 0.6 mg/dL 0.50-0.90 glomerular filtration rate ( test code = glomerular filtration rate) >60.00 Urea nitrogen/Creatinine [Ma ss Ratio] in Serum or Plasma (test code = 3097-3) 5.0 12-20 L sodium level (test code = so dium level) 135 mmol/L 135-145 Potassium [Moles/volume] in Body fluid (test code = 2821-7) 3.5 mmol/L 3.5-5.2 chloride level (test code = chloride level) 107 mmol/L 98-108 CO2 (test code = CO2) 21 mmol/L 21-32 anion gap (test code = anion gap) 10.5 mEq/L 12-20 L calcium level (test code = c alcium level) 8.1 mg/dL 8.6-10.0 L total protein (test code = t otal protein) 5.4 g/dL 6.6-8.7 L albumin (test code = albumin) 3.0 g/dL 3.5-5.2 L globulin (test code = globulin) 2.4 gm/dL A/G ratio (test code = A/G ratio) 1.3 >1.0 bilirubin,total (test code = bilirubin,total) 0.4 mg/dL 0.0-1.2 AST/SGOT (test code = AST/SGOT) 17 U/L 15-32 Alanine aminotransferase [Enzymatic activity/volume] in Serum or Plasma (test code = 1742-6) 38 U/L 0-33 H Alkaline phosphatase [Enzyma tic activity/volume] in Serum or Plasma (test code = 6768-6) 52 U/L 35-105 [facility] Differential panel - [id number] 03:30:00 * Test Item Value Reference Range Interpretation Comme nts white blood count (test code = white blood count) 4.3 K/uL 4.0-11.5 red blood count (test code = red blood count) 3.20 M/uL 3.80-5.20 L Hemoglobin [Mass/volume] in Blood (test code = 718-7) 10.0 g/dL 10.5-15.7 L hematocrit (test code = hematocrit) 30.6 % 34.0-50.0 Erythrocyte mean corpuscular volume [Entitic volume] (test code = 75417-9) 95.8 fL 78-98 Erythrocyte mean corpuscular hemoglobin [Entitic mass] (test code = 88948-0) 31.2 pg 26.2-33.4 mean corpuscular HGB conc (t est code = mean corpuscular HGB conc) 32.6 g/dL 31.5-36.2 red cell distribution width (test code = red cell distribution width) 11.2 % 11.5-15.5 L Platelets [#/volume] in Bloo d (test code = 40368-6) 184 K/uL 137-338 Platelet mean volume [Entiti c volume] in Blood (test code = 46085-4) 8.4 fL 8.4-11.8 Neutrophils.band form/100 leukocytes in Blood (test code = 58643-9) 59.6 % 44.4-80.1 Lymphocytes/100 leukocytes i n Body fluid (test code = 68743-9) 31.9 % 10.0-50.0 Monocytes/100 leukocytes in Blood by Automated count (test code = 5905-5) 5.9 % 3.6-12.04 Eosinophils/100 leukocytes i n Blood by Automated count (test code = 713-8) 1.0 % 0.0-5.41 Basophils/100 leukocytes in Unspecified specimen (test code = 01979-8) 1.5 % 0.0-0.79 [facility], [id number] 03:30:00 NeutrophilsLymphocyteMonocytePlatelet EstimatePlatelet MorphologyMaMississippi State HospitalComprehensive metabolic 2000 panel - Serum or [id number] 03:30:00* Test Item Value Reference Range Interpretation Comme nts glucose (test code = glucose) 116 mg/dL 74-106 H Urea nitrogen [Mass/volume] in Serum or Plasma (test code = 3094-0) 3 mg/dL 6-20 L Osmolality of Serum or Plasm a (test code = 2692-2) 268 280-300 L creatinine (test code = creatinine) 0.6 mg/dL 0.50-0.90 glomerular filtration rate ( test code = glomerular filtration rate) >60.00 Urea nitrogen/Creatinine [Ma ss Ratio] in Serum or Plasma (test code = 3097-3) 5.0 12-20 L sodium level (test code = so dium level) 135 mmol/L 135-145 Potassium [Moles/volume] in Body fluid (test code = 2821-7) 3.5 mmol/L 3.5-5.2 chloride level (test code = chloride level) 107 mmol/L 98-108 CO2 (test code = CO2) 21 mmol/L 21-32 anion gap (test code = anion gap) 10.5 mEq/L 12-20 L calcium level (test code = c alcium level) 8.1 mg/dL 8.6-10.0 L total protein (test code = t otal protein) 5.4 g/dL 6.6-8.7 L albumin (test code = albumin) 3.0 g/dL 3.5-5.2 L globulin (test code = globulin) 2.4 gm/dL A/G ratio (test code = A/G ratio) 1.3 >1.0 bilirubin,total (test code = bilirubin,total) 0.4 mg/dL 0.0-1.2 AST/SGOT (test code = AST/SGOT) 17 U/L 15-32 Alanine aminotransferase [Enzymatic activity/volume] in Serum or Plasma (test code = 1742-6) 38 U/L 0-33 H Alkaline phosphatase [Enzyma tic activity/volume] in Serum or Plasma (test code = 6768-6) 52 U/L 35-105 [facility] Differential panel - [id number] 03:30:00 * Test Item Value Reference Range Interpretation Comme nts white blood count (test code = white blood count) 4.3 K/uL 4.0-11.5 red blood count (test code = red blood count) 3.20 M/uL 3.80-5.20 L Hemoglobin [Mass/volume] in Blood (test code = 718-7) 10.0 g/dL 10.5-15.7 L hematocrit (test code = hematocrit) 30.6 % 34.0-50.0 Erythrocyte mean corpuscular volume [Entitic volume] (test code = 95379-1) 95.8 fL 78-98 Erythrocyte mean corpuscular hemoglobin [Entitic mass] (test code = 94947-9) 31.2 pg 26.2-33.4 mean corpuscular HGB conc (t est code = mean corpuscular HGB conc) 32.6 g/dL 31.5-36.2 red cell distribution width (test code = red cell distribution width) 11.2 % 11.5-15.5 L Platelets [#/volume] in Bloo d (test code = 05362-5) 184 K/uL 137-338 Platelet mean volume [Entiti c volume] in Blood (test code = 12271-0) 8.4 fL 8.4-11.8 Neutrophils.band form/100 leukocytes in Blood (test code = 37848-3) 59.6 % 44.4-80.1 Lymphocytes/100 leukocytes i n Body fluid (test code = 30912-7) 31.9 % 10.0-50.0 Monocytes/100 leukocytes in Blood by Automated count (test code = 5905-5) 5.9 % 3.6-12.04 Eosinophils/100 leukocytes i n Blood by Automated count (test code = 713-8) 1.0 % 0.0-5.41 Basophils/100 leukocytes in Unspecified specimen (test code = 15790-0) 1.5 % 0.0-0.79 [facility]different[facility], [id number] 03:30:00 NeutrophilsLymphocyteMonocytePlatelet EstimatePlatelet MorphologyUniversity Of [facility] CenterComprehensive metabolic 2000 panel - Serum or [id number] 03:30:00* Test Item Value Reference Range Interpretation Comme nts glucose (test code = glucose) 116 mg/dL 74-106 H Urea nitrogen [Mass/volume] in Serum or Plasma (test code = 3094-0) 3 mg/dL 6-20 L Osmolality of Serum or Plasm a (test code = 2692-2) 268 280-300 L creatinine (test code = creatinine) 0.6 mg/dL 0.50-0.90 glomerular filtration rate ( test code = glomerular filtration rate) >60.00 Urea nitrogen/Creatinine [Ma ss Ratio] in Serum or Plasma (test code = 3097-3) 5.0 12-20 L sodium level (test code = so dium level) 135 mmol/L 135-145 Potassium [Moles/volume] in Body fluid (test code = 2821-7) 3.5 mmol/L 3.5-5.2 chloride level (test code = chloride level) 107 mmol/L 98-108 CO2 (test code = CO2) 21 mmol/L 21-32 anion gap (test code = anion gap) 10.5 mEq/L 12-20 L calcium level (test code = c alcium level) 8.1 mg/dL 8.6-10.0 L total protein (test code = t otal protein) 5.4 g/dL 6.6-8.7 L albumin (test code = albumin) 3.0 g/dL 3.5-5.2 L globulin (test code = globulin) 2.4 gm/dL A/G ratio (test code = A/G ratio) 1.3 >1.0 bilirubin,total (test code = bilirubin,total) 0.4 mg/dL 0.0-1.2 AST/SGOT (test code = AST/SGOT) 17 U/L 15-32 Alanine aminotransferase [Enzymatic activity/volume] in Serum or Plasma (test code = 1742-6) 38 U/L 0-33 H Alkaline phosphatase [Enzyma tic activity/volume] in Serum or Plasma (test code = 6768-6) 52 U/L 35-105 [facility] Differential panel - [id number] 12:57:00 * Test Item Value Reference Range Interpretation Comme nts white blood count (test code = white blood count) 4.5 K/uL 4.0-11.5 red blood count (test code = red blood count) 4.04 M/uL 3.80-5.20 Hemoglobin [Mass/volume] in Blood (test code = 718-7) 12.7 g/dL 10.5-15.7 hematocrit (test code = hematocrit) 38.3 % 34.0-50.0 Erythrocyte mean corpuscular volume [Entitic volume] (test code = 04532-0) 94.8 fL 78-98 Erythrocyte mean corpuscular hemoglobin [Entitic mass] (test code = 73708-5) 31.5 pg 26.2-33.4 mean corpuscular HGB conc (t est code = mean corpuscular HGB conc) 33.2 g/dL 31.5-36.2 red cell distribution width (test code = red cell distribution width) 11.2 % 11.5-15.5 L Platelets [#/volume] in Bloo d (test code = 61340-3) 261 K/uL 137-338 Platelet mean volume [Entiti c volume] in Blood (test code = 24039-7) 9.0 fL 8.4-11.8 Neutrophils.band form/100 leukocytes in Blood (test code = 80945-2) 67.1 % 44.4-80.1 Lymphocytes/100 leukocytes i n Body fluid (test code = 57142-1) 24.5 % 10.0-50.0 Monocytes/100 leukocytes in Blood by Automated count (test code = 5905-5) 6.1 % 3.6-12.04 Eosinophils/100 leukocytes i n Blood by Automated count (test code = 713-8) 0.4 % 0.0-5.41 Basophils/100 leukocytes in Unspecified specimen (test code = 15289-8) 1.9 % 0.0-0.79 [facility]different[facility], [id number] 12:57:00 NeutrophilsLymphocyteMonocytePlatelet EstimatePlatelet MorphologyUniversity Of [facility] CenterComprehensive metabolic 2000 panel - Serum or [id number] 12:57:00* Test Item Value Reference Range Interpretation Comme nts glucose (test code = glucose) 94 mg/dL 74-106 Urea nitrogen [Mass/volume] in Serum or Plasma (test code = 3094-0) 5 mg/dL 6-20 L Osmolality of Serum or Plasm a (test code = 2692-2) 265 280-300 L creatinine (test code = creatinine) 0.7 mg/dL 0.50-0.90 glomerular filtration rate ( test code = glomerular filtration rate) >60.00 Urea nitrogen/Creatinine [Ma ss Ratio] in Serum or Plasma (test code = 3097-3) 7.1 12-20 L sodium level (test code = so dium level) 134 mmol/L 135-145 L Potassium [Moles/volume] in Body fluid (test code = 2821-7) 3.3 mmol/L 3.5-5.2 L chloride level (test code = chloride level) 97 mmol/L 98-108 L CO2 (test code = CO2) 22 mmol/L 21-32 anion gap (test code = anion gap) 18.3 mEq/L 12-20 calcium level (test code = c alcium level) 9.7 mg/dL 8.6-10.0 total protein (test code = t otal protein) 7.6 g/dL 6.6-8.7 albumin (test code = albumin) 4.1 g/dL 3.5-5.2 globulin (test code = globulin) 3.5 gm/dL A/G ratio (test code = A/G ratio) 1.2 >1.0 bilirubin,total (test code = bilirubin,total) 0.7 mg/dL 0.0-1.2 AST/SGOT (test code = AST/SGOT) 23 U/L 15-32 Alanine aminotransferase [Enzymatic activity/volume] in Serum or Plasma (test code = 1742-6) 56 U/L 0-33 H Alkaline phosphatase [Enzyma tic activity/volume] in Serum or Plasma (test code = 6768-6) 71 U/L 35-105 [facility] Differential panel - [id number] 12:57:00 * Test Item Value Reference Range Interpretation Comme nts white blood count (test code = white blood count) 4.5 K/uL 4.0-11.5 red blood count (test code = red blood count) 4.04 M/uL 3.80-5.20 Hemoglobin [Mass/volume] in Blood (test code = 718-7) 12.7 g/dL 10.5-15.7 hematocrit (test code = hematocrit) 38.3 % 34.0-50.0 Erythrocyte mean corpuscular volume [Entitic volume] (test code = 18435-3) 94.8 fL 78-98 Erythrocyte mean corpuscular hemoglobin [Entitic mass] (test code = 36267-6) 31.5 pg 26.2-33.4 mean corpuscular HGB conc (t est code = mean corpuscular HGB conc) 33.2 g/dL 31.5-36.2 red cell distribution width (test code = red cell distribution width) 11.2 % 11.5-15.5 L Platelets [#/volume] in Bloo d (test code = 68496-0) 261 K/uL 137-338 Platelet mean volume [Entiti c volume] in Blood (test code = 62192-1) 9.0 fL 8.4-11.8 Neutrophils.band form/100 leukocytes in Blood (test code = 07662-9) 67.1 % 44.4-80.1 Lymphocytes/100 leukocytes i n Body fluid (test code = 64708-0) 24.5 % 10.0-50.0 Monocytes/100 leukocytes in Blood by Automated count (test code = 5905-5) 6.1 % 3.6-12.04 Eosinophils/100 leukocytes i n Blood by Automated count (test code = 713-8) 0.4 % 0.0-5.41 Basophils/100 leukocytes in Unspecified specimen (test code = 51295-9) 1.9 % 0.0-0.79 [facility], [id number] 12:57:00 NeutrophilsLymphocyteMonocytePlatelet EstimatePlatelet MorphologyMaMississippi State HospitalComprehensive metabolic 2000 panel - Serum or [id number] 12:57:00* Test Item Value Reference Range Interpretation Comme nts glucose (test code = glucose) 94 mg/dL 74-106 Urea nitrogen [Mass/volume] in Serum or Plasma (test code = 3094-0) 5 mg/dL 6-20 L Osmolality of Serum or Plasm a (test code = 2692-2) 265 280-300 L creatinine (test code = creatinine) 0.7 mg/dL 0.50-0.90 glomerular filtration rate ( test code = glomerular filtration rate) >60.00 Urea nitrogen/Creatinine [Ma ss Ratio] in Serum or Plasma (test code = 3097-3) 7.1 12-20 L sodium level (test code = so dium level) 134 mmol/L 135-145 L Potassium [Moles/volume] in Body fluid (test code = 2821-7) 3.3 mmol/L 3.5-5.2 L chloride level (test code = chloride level) 97 mmol/L 98-108 L CO2 (test code = CO2) 22 mmol/L 21-32 anion gap (test code = anion gap) 18.3 mEq/L 12-20 calcium level (test code = c alcium level) 9.7 mg/dL 8.6-10.0 total protein (test code = t otal protein) 7.6 g/dL 6.6-8.7 albumin (test code = albumin) 4.1 g/dL 3.5-5.2 globulin (test code = globulin) 3.5 gm/dL A/G ratio (test code = A/G ratio) 1.2 >1.0 bilirubin,total (test code = bilirubin,total) 0.7 mg/dL 0.0-1.2 AST/SGOT (test code = AST/SGOT) 23 U/L 15-32 Alanine aminotransferase [Enzymatic activity/volume] in Serum or Plasma (test code = 1742-6) 56 U/L 0-33 H Alkaline phosphatase [Enzyma tic activity/volume] in Serum or Plasma (test code = 6768-6) 71 U/L 35-105 [facility] Auto Differential panel - [id number] 12:57:00 * Test Item Value Reference Range Interpretation Comme nts white blood count (test code = white blood count) 4.5 K/uL 4.0-11.5 red blood count (test code = red blood count) 4.04 M/uL 3.80-5.20 Hemoglobin [Mass/volume] in Blood (test code = 718-7) 12.7 g/dL 10.5-15.7 hematocrit (test code = hematocrit) 38.3 % 34.0-50.0 Erythrocyte mean corpuscular volume [Entitic volume] (test code = 98223-3) 94.8 fL 78-98 Erythrocyte mean corpuscular hemoglobin [Entitic mass] (test code = 98222-2) 31.5 pg 26.2-33.4 mean corpuscular HGB conc (t est code = mean corpuscular HGB conc) 33.2 g/dL 31.5-36.2 red cell distribution width (test code = red cell distribution width) 11.2 % 11.5-15.5 L Platelets [#/volume] in Bloo d (test code = 62282-7) 261 K/uL 137-338 Platelet mean volume [Entiti c volume] in Blood (test code = 76751-4) 9.0 fL 8.4-11.8 Neutrophils.band form/100 leukocytes in Blood (test code = 37896-4) 67.1 % 44.4-80.1 Lymphocytes/100 leukocytes i n Body fluid (test code = 05057-6) 24.5 % 10.0-50.0 Monocytes/100 leukocytes in Blood by Automated count (test code = 5905-5) 6.1 % 3.6-12.04 Eosinophils/100 leukocytes i n Blood by Automated count (test code = 713-8) 0.4 % 0.0-5.41 Basophils/100 leukocytes in Unspecified specimen (test code = 68058-1) 1.9 % 0.0-0.79 [facility], [id number] 12:57:00 NeutrophilsLymphocyteMonocytePlatelet EstimatePlatelet MorphologyMataMonroe Regional HospitalComprehensive metabolic 2000 panel - Serum or [id number] 12:57:00* Test Item Value Reference Range Interpretation Comme nts glucose (test code = glucose) 94 mg/dL 74-106 Urea nitrogen [Mass/volume] in Serum or Plasma (test code = 3094-0) 5 mg/dL 6-20 L Osmolality of Serum or Plasm a (test code = 2692-2) 265 280-300 L creatinine (test code = creatinine) 0.7 mg/dL 0.50-0.90 glomerular filtration rate ( test code = glomerular filtration rate) >60.00 Urea nitrogen/Creatinine [Ma ss Ratio] in Serum or Plasma (test code = 3097-3) 7.1 12-20 L sodium level (test code = so dium level) 134 mmol/L 135-145 L Potassium [Moles/volume] in Body fluid (test code = 2821-7) 3.3 mmol/L 3.5-5.2 L chloride level (test code = chloride level) 97 mmol/L 98-108 L CO2 (test code = CO2) 22 mmol/L 21-32 anion gap (test code = anion gap) 18.3 mEq/L 12-20 calcium level (test code = c alcium level) 9.7 mg/dL 8.6-10.0 total protein (test code = t otal protein) 7.6 g/dL 6.6-8.7 albumin (test code = albumin) 4.1 g/dL 3.5-5.2 globulin (test code = globulin) 3.5 gm/dL A/G ratio (test code = A/G ratio) 1.2 >1.0 bilirubin,total (test code = bilirubin,total) 0.7 mg/dL 0.0-1.2 AST/SGOT (test code = AST/SGOT) 23 U/L 15-32 Alanine aminotransferase [Enzymatic activity/volume] in Serum or Plasma (test code = 1742-6) 56 U/L 0-33 H Alkaline phosphatase [Enzyma tic activity/volume] in Serum or Plasma (test code = 6768-6) 71 U/L 35-105 [facility] GroupUrinal[facility] macro (dipstick) panel - [id number] 12:22:43* Test Item Value Reference Range Interpretation Comme nts Leukocytes (test code = Leukocytes) Trace Nitrite (test code = Nitrite) positive Urobilinogen (test code = Urobilinogen) 8 Protein (test code = Protein) 100 pH (test code = pH) 6.0 Blood (test code = Blood) Negative Specific Brady (test code = Specific Brady) 1.020 Ketone (test code = Ketone) Large (80) Bilirubin (test code = Bilirubin) Large Glucose (test code = Glucose) Negative Appearance (test code = Appearance) Clear Color (test code = Color) Dark Yellow [facility] CenterUrinalysis macro (dipstick) panel - [id number] 12:22:43* Test Item Value Reference Range Interpretation Comme nts Leukocytes (test code = Leukocytes) Trace Nitrite (test code = Nitrite) positive Urobilinogen (test code = Urobilinogen) 8 Protein (test code = Protein) 100 pH (test code = pH) 6.0 Blood (test code = Blood) Negative Specific Brady (test code = Specific Brady) 1.020 Ketone (test code = Ketone) Large (80) Bilirubin (test code = Bilirubin) Large Glucose (test code = Glucose) Negative Appearance (test code = Appearance) Clear Color (test code = Color) Dark Yellow [facility] CenterUrinalysis macro (dipstick) panel - [id number] 12:22:43* Test Item Value Reference Range Interpretation Comme nts Leukocytes (test code = Leukocytes) Trace Nitrite (test code = Nitrite) positive Urobilinogen (test code = Urobilinogen) 8 Protein (test code = Protein) 100 pH (test code = pH) 6.0 Blood (test code = Blood) Negative Specific Brady (test code = Specific Brady) 1.020 Ketone (test code = Ketone) Large (80) Bilirubin (test code = Bilirubin) Large Glucose (test code = Glucose) Negative Appearance (test code = Appearance) Clear Color (test code = Color) Dark Yellow [facility] CenterUrinalysis macro (dipstick) panel - [id number] 12:22:43* Test Item Value Reference Range Interpretation Comme nts Leukocytes (test code = Leukocytes) Trace Nitrite (test code = Nitrite) positive Urobilinogen (test code = Urobilinogen) 8 Protein (test code = Protein) 100 pH (test code = pH) 6.0 Blood (test code = Blood) Negative Specific Brady (test code = Specific Brady) 1.020 Ketone (test code = Ketone) Large (80) Bilirubin (test code = Bilirubin) Large Glucose (test code = Glucose) Negative Appearance (test code = Appearance) Clear Color (test code = Color) Dark Yellow [facility] CenterUrinalysis macro (dipstick) panel - [id number] 12:22:43* Test Item Value Reference Range Interpretation Comme nts Leukocytes (test code = Leukocytes) Trace Nitrite (test code = Nitrite) positive Urobilinogen (test code = Urobilinogen) 8 Protein (test code = Protein) 100 pH (test code = pH) 6.0 Blood (test code = Blood) Negative Specific Brady (test code = Specific Brady) 1.020 Ketone (test code = Ketone) Large (80) Bilirubin (test code = Bilirubin) Large Glucose (test code = Glucose) Negative Appearance (test code = Appearance) Clear Color (test code = Color) Dark Yellow [facility] CenterHemoglobin and Hematocrit panel - [id number] 06:06:00* Test Item Value Reference Range Interpretation Comme nts Hemoglobin [Mass/volume] in Blood (test code = 718-7) 13.1 g/dL 10.5-15.7 hematocrit (test code = hematocrit) 39.2 % 34.0-50.0 [facility] CenterComprehensive [facility] 2000 panel - Serum or Plasma 2019-02-16 06:06:00* Test Item Value Reference Range Interpretation Comme nts glucose (test code = glucose) 95 mg/dL 74-106 Urea nitrogen [Mass/volume] in Serum or Plasma (test code = 3094-0) 5 mg/dL 6-20 L Osmolality of Serum or Plasm a (test code = 2692-2) 267 280-300 L creatinine (test code = creatinine) 0.7 mg/dL 0.50-0.90 glomerular filtration rate ( test code = glomerular filtration rate) >60.00 Urea nitrogen/Creatinine [Ma ss Ratio] in Serum or Plasma (test code = 3097-3) 7.1 12-20 L sodium level (test code = so dium level) 135 mmol/L 135-145 Potassium [Moles/volume] in Body fluid (test code = 2821-7) 3.5 mmol/L 3.5-5.2 chloride level (test code = chloride level) 100 mmol/L 98-108 CO2 (test code = CO2) 23 mmol/L 21-32 anion gap (test code = anion gap) 15.5 mEq/L 12-20 calcium level (test code = c alcium level) 8.9 mg/dL 8.6-10.0 total protein (test code = t otal protein) 6.7 g/dL 6.6-8.7 albumin (test code = albumin) 3.8 g/dL 3.5-5.2 globulin (test code = globulin) 2.9 gm/dL A/G ratio (test code = A/G ratio) 1.3 >1.0 bilirubin,total (test code = bilirubin,total) 0.3 mg/dL 0.0-1.2 AST/SGOT (test code = AST/SGOT) 58 U/L 15-32 H Alanine aminotransferase [Enzymatic activity/volume] in Serum or Plasma (test code = 1742-6) 131 U/L 0-33 H Alkaline phosphatase [Enzyma tic activity/volume] in Serum or Plasma (test code = 6768-6) 54 U/L 35-105 [facility] - [id number] 06:06:00* Test Item Value Reference Range Interpretation Comme nts Hemoglobin [Mass/volume] in Blood (test code = 718-7) 13.1 g/dL 10.5-15.7 hematocrit (test code = hematocrit) 39.2 % 34.0-50.0 [facility] - Serum or Plasma 2019-02-16 06:06:00* Test Item Value Reference Range Interpretation Comme nts glucose (test code = glucose) 95 mg/dL 74-106 Urea nitrogen [Mass/volume] in Serum or Plasma (test code = 3094-0) 5 mg/dL 6-20 L Osmolality of Serum or Plasm a (test code = 2692-2) 267 280-300 L creatinine (test code = creatinine) 0.7 mg/dL 0.50-0.90 glomerular filtration rate ( test code = glomerular filtration rate) >60.00 Urea nitrogen/Creatinine [Ma ss Ratio] in Serum or Plasma (test code = 3097-3) 7.1 12-20 L sodium level (test code = so dium level) 135 mmol/L 135-145 Potassium [Moles/volume] in Body fluid (test code = 2821-7) 3.5 mmol/L 3.5-5.2 chloride level (test code = chloride level) 100 mmol/L 98-108 CO2 (test code = CO2) 23 mmol/L 21-32 anion gap (test code = anion gap) 15.5 mEq/L 12-20 calcium level (test code = c alcium level) 8.9 mg/dL 8.6-10.0 total protein (test code = t otal protein) 6.7 g/dL 6.6-8.7 albumin (test code = albumin) 3.8 g/dL 3.5-5.2 globulin (test code = globulin) 2.9 gm/dL A/G ratio (test code = A/G ratio) 1.3 >1.0 bilirubin,total (test code = bilirubin,total) 0.3 mg/dL 0.0-1.2 AST/SGOT (test code = AST/SGOT) 58 U/L 15-32 H Alanine aminotransferase [Enzymatic activity/volume] in Serum or Plasma (test code = 1742-6) 131 U/L 0-33 H Alkaline phosphatase [Enzyma tic activity/volume] in Serum or Plasma (test code = 6768-6) 54 U/L 35-105 [facility] - [id number] 06:06:00* Test Item Value Reference Range Interpretation Comme nts Hemoglobin [Mass/volume] in Blood (test code = 718-7) 13.1 g/dL 10.5-15.7 hematocrit (test code = hematocrit) 39.2 % 34.0-50.0 [facility] 2000 [facility] - Serum or Plasma 2019-02-16 06:06:00* Test Item Value Reference Range Interpretation Comme nts glucose (test code = glucose) 95 mg/dL 74-106 Urea nitrogen [Mass/volume] in Serum or Plasma (test code = 3094-0) 5 mg/dL 6-20 L Osmolality of Serum or Plasm a (test code = 2692-2) 267 280-300 L creatinine (test code = creatinine) 0.7 mg/dL 0.50-0.90 glomerular filtration rate ( test code = glomerular filtration rate) >60.00 Urea nitrogen/Creatinine [Ma ss Ratio] in Serum or Plasma (test code = 3097-3) 7.1 12-20 L sodium level (test code = so dium level) 135 mmol/L 135-145 Potassium [Moles/volume] in Body fluid (test code = 2821-7) 3.5 mmol/L 3.5-5.2 chloride level (test code = chloride level) 100 mmol/L 98-108 CO2 (test code = CO2) 23 mmol/L 21-32 anion gap (test code = anion gap) 15.5 mEq/L 12-20 calcium level (test code = c alcium level) 8.9 mg/dL 8.6-10.0 total protein (test code = t otal protein) 6.7 g/dL 6.6-8.7 albumin (test code = albumin) 3.8 g/dL 3.5-5.2 globulin (test code = globulin) 2.9 gm/dL A/G ratio (test code = A/G ratio) 1.3 >1.0 bilirubin,total (test code = bilirubin,total) 0.3 mg/dL 0.0-1.2 AST/SGOT (test code = AST/SGOT) 58 U/L 15-32 H Alanine aminotransferase [Enzymatic activity/volume] in Serum or Plasma (test code = 1742-6) 131 U/L 0-33 H Alkaline phosphatase [Enzyma tic activity/volume] in Serum or Plasma (test code = 6768-6) 54 U/L 35-105 [facility] - [id number] 08:02:00* Test Item Value Reference Range Interpretation Comme nts Hemoglobin [Mass/volume] in Blood (test code = 718-7) 11.9 g/dL 10.5-15.7 hematocrit (test code = hematocrit) 34.5 % 34.0-50.0 [facility] 2000 [facility] - Serum or Plasma 2019-02-15 08:02:00* Test Item Value Reference Range Interpretation Comme nts Glucose [Mass/volume] in Ser um or Plasma (test code = 2345-7) 153 mg/dL 74-106 H Urea nitrogen [Mass/volume] in Serum or Plasma (test code = 3094-0) 6 mg/dL 6-20 Osmolality of Serum or Plasm a (test code = 2692-2) 278 280-300 L creatinine (test code = creatinine) 0.7 mg/dL 0.50-0.90 glomerular filtration rate ( test code = glomerular filtration rate) >60.00 Urea nitrogen/Creatinine [Ma ss Ratio] in Serum or Plasma (test code = 3097-3) 8.6 12-20 L sodium level (test code = so dium level) 139 mmol/L 135-145 potassium level (test code = potassium level) 3.5 mmol/L 3.5-5.2 chloride level (test code = chloride level) 104 mmol/L 98-108 CO2 (test code = CO2) 23 mmol/L 21-32 anion gap (test code = anion gap) 15.5 mEq/L 12-20 calcium level (test code = c alcium level) 8.8 mg/dL 8.6-10.0 total protein (test code = t otal protein) 6.2 g/dL 6.6-8.7 L albumin (test code = albumin) 3.4 g/dL 3.5-5.2 L globulin (test code = globulin) 2.8 gm/dL A/G ratio (test code = A/G ratio) 1.2 >1.0 bilirubin,total (test code = bilirubin,total) 0.5 mg/dL 0.0-1.2 AST/SGOT (test code = AST/SGOT) 89 U/L 15-32 Alanine aminotransferase [Enzymatic activity/volume] in Serum or Plasma (test code = 1742-6) 134 U/L 0-33 H Alkaline phosphatase [Enzyma tic activity/volume] in Serum or Plasma (test code = 6768-6) 48 U/L 35-105 [facility] - [id number] 08:02:00* Test Item Value Reference Range Interpretation Comme nts Hemoglobin [Mass/volume] in Blood (test code = 718-7) 11.9 g/dL 10.5-15.7 hematocrit (test code = hematocrit) 34.5 % 34.0-50.0 [facility] 2000 [facility] - Serum or Plasma 2019-02-15 08:02:00* Test Item Value Reference Range Interpretation Comme nts Glucose [Mass/volume] in Ser um or Plasma (test code = 2345-7) 153 mg/dL 74-106 H Urea nitrogen [Mass/volume] in Serum or Plasma (test code = 3094-0) 6 mg/dL 6-20 Osmolality of Serum or Plasm a (test code = 2692-2) 278 280-300 L creatinine (test code = creatinine) 0.7 mg/dL 0.50-0.90 glomerular filtration rate ( test code = glomerular filtration rate) >60.00 Urea nitrogen/Creatinine [Ma ss Ratio] in Serum or Plasma (test code = 3097-3) 8.6 12-20 L sodium level (test code = so dium level) 139 mmol/L 135-145 potassium level (test code = potassium level) 3.5 mmol/L 3.5-5.2 chloride level (test code = chloride level) 104 mmol/L 98-108 CO2 (test code = CO2) 23 mmol/L 21-32 anion gap (test code = anion gap) 15.5 mEq/L 12-20 calcium level (test code = c alcium level) 8.8 mg/dL 8.6-10.0 total protein (test code = t otal protein) 6.2 g/dL 6.6-8.7 L albumin (test code = albumin) 3.4 g/dL 3.5-5.2 L globulin (test code = globulin) 2.8 gm/dL A/G ratio (test code = A/G ratio) 1.2 >1.0 bilirubin,total (test code = bilirubin,total) 0.5 mg/dL 0.0-1.2 AST/SGOT (test code = AST/SGOT) 89 U/L 15-32 Alanine aminotransferase [Enzymatic activity/volume] in Serum or Plasma (test code = 1742-6) 134 U/L 0-33 H Alkaline phosphatase [Enzyma tic activity/volume] in Serum or Plasma (test code = 6768-6) 48 U/L 35-105 [facility] - [id number] 08:02:00* Test Item Value Reference Range Interpretation Comme nts Hemoglobin [Mass/volume] in Blood (test code = 718-7) 11.9 g/dL 10.5-15.7 hematocrit (test code = hematocrit) 34.5 % 34.0-50.0 [facility]Com[facility] 2000 [facility] - Serum or Plasma 2019-02-15 08:02:00* Test Item Value Reference Range Interpretation Comme nts Glucose [Mass/volume] in Ser um or Plasma (test code = 2345-7) 153 mg/dL 74-106 H Urea nitrogen [Mass/volume] in Serum or Plasma (test code = 3094-0) 6 mg/dL 6-20 Osmolality of Serum or Plasm a (test code = 2692-2) 278 280-300 L creatinine (test code = creatinine) 0.7 mg/dL 0.50-0.90 glomerular filtration rate ( test code = glomerular filtration rate) >60.00 Urea nitrogen/Creatinine [Ma ss Ratio] in Serum or Plasma (test code = 3097-3) 8.6 12-20 L sodium level (test code = so dium level) 139 mmol/L 135-145 potassium level (test code = potassium level) 3.5 mmol/L 3.5-5.2 chloride level (test code = chloride level) 104 mmol/L 98-108 CO2 (test code = CO2) 23 mmol/L 21-32 anion gap (test code = anion gap) 15.5 mEq/L 12-20 calcium level (test code = c alcium level) 8.8 mg/dL 8.6-10.0 total protein (test code = t otal protein) 6.2 g/dL 6.6-8.7 L albumin (test code = albumin) 3.4 g/dL 3.5-5.2 L globulin (test code = globulin) 2.8 gm/dL A/G ratio (test code = A/G ratio) 1.2 >1.0 bilirubin,total (test code = bilirubin,total) 0.5 mg/dL 0.0-1.2 AST/SGOT (test code = AST/SGOT) 89 U/L 15-32 Alanine aminotransferase [Enzymatic activity/volume] in Serum or Plasma (test code = 1742-6) 134 U/L 0-33 H Alkaline phosphatase [Enzyma tic activity/volume] in Serum or Plasma (test code = 6768-6) 48 U/L 35-105 [facility] CenterCB W Auto Differential panel - [id number] 02:57:00 * Test Item Value Reference Range Interpretation Comme nts white blood count (test code = white blood count) 5.1 K/uL 4.0-11.5 red blood count (test code = red blood count) 4.29 M/uL 3.80-5.20 Hemoglobin [Mass/volume] in Blood (test code = 718-7) 14.0 g/dL 10.5-15.7 hematocrit (test code = hematocrit) 41.3 % 34.0-50.0 Erythrocyte mean corpuscular volume [Entitic volume] (test code = 50285-5) 96.3 fL 78-98 Erythrocyte mean corpuscular hemoglobin [Entitic mass] (test code = 62258-2) 32.6 pg 26.2-33.4 mean corpuscular HGB conc (t est code = mean corpuscular HGB conc) 33.9 g/dL 31.5-36.2 red cell distribution width (test code = red cell distribution width) 10.3 % 11.5-15.5 L Platelets [#/volume] in Bloo d (test code = 55549-1) 216 K/uL 137-338 Platelet mean volume [Entiti c volume] in Blood (test code = 74692-5) 9.2 fL 8.4-11.8 Neutrophils.band form/100 leukocytes in Blood (test code = 86362-9) 69.8 % 44.4-80.1 Lymphocytes/100 leukocytes i n Body fluid (test code = 69548-2) 22.0 % 10.0-50.0 Monocytes/100 leukocytes in Blood by Automated count (test code = 5905-5) 6.1 % 3.6-12.04 Eosinophils/100 leukocytes i n Blood by Automated count (test code = 713-8) 0.3 % 0.0-5.41 Basophils/100 leukocytes in Blood by Automated count (test code = 706-2) 1.8 % 0.0-0.79 H [facility], [id number] 02:57:00 NeutrophilsBandLymphocyteAtypical LymphMonocyteEosinophilBasophilPlatelet EstimatePlatelet MorphologyPoikilocytosisTarget CellsHypersegmented PolysRouleauToxic VacuolationSmudge CellsUniversity [facility] CenterComprehensive metabolic 2000 panel - Serum or [id number] 02:57:00* Test Item Value Reference Range Interpretation Comme nts Glucose [Mass/volume] in Ser um or Plasma (test code = 2345-7) 103 mg/dL 74-106 Urea nitrogen [Mass/volume] in Serum or Plasma (test code = 3094-0) 14 mg/dL 6-20 Osmolality of Serum or Plasm a (test code = 2692-2) 271 280-300 L creatinine (test code = creatinine) 0.9 mg/dL 0.50-0.90 glomerular filtration rate ( test code = glomerular filtration rate) >60.00 Urea nitrogen/Creatinine [Ma ss Ratio] in Serum or Plasma (test code = 3097-3) 15.6 12-20 sodium level (test code = so dium level) 135 mmol/L 135-145 potassium level (test code = potassium level) 3.4 mmol/L 3.5-5.2 L chloride level (test code = chloride level) 94 mmol/L 98-108 L CO2 (test code = CO2) 21 mmol/L 21-32 anion gap (test code = anion gap) 23.4 mEq/L 12-20 H calcium level (test code = c alcium level) 9.6 mg/dL 8.6-10.0 total protein (test code = t otal protein) 8.3 g/dL 6.6-8.7 albumin (test code = albumin) 4.5 g/dL 3.5-5.2 globulin (test code = globulin) 3.8 gm/dL A/G ratio (test code = A/G ratio) 1.2 >1.0 bilirubin,total (test code = bilirubin,total) 0.8 mg/dL 0.0-1.2 AST/SGOT (test code = AST/SGOT) 34 U/L 15-32 H Alanine aminotransferase [Enzymatic activity/volume] in Serum or Plasma (test code = 1742-6) 56 U/L 0-33 H Alkaline phosphatase [Enzyma tic activity/volume] in Serum or Plasma (test code = 6768-6) 57 U/L 35-105 [facility]CB W Auto Differential panel - [id number] 02:57:00 * Test Item Value Reference Range Interpretation Comme nts white blood count (test code = white blood count) 5.1 K/uL 4.0-11.5 red blood count (test code = red blood count) 4.29 M/uL 3.80-5.20 Hemoglobin [Mass/volume] in Blood (test code = 718-7) 14.0 g/dL 10.5-15.7 hematocrit (test code = hematocrit) 41.3 % 34.0-50.0 Erythrocyte mean corpuscular volume [Entitic volume] (test code = 77861-1) 96.3 fL 78-98 Erythrocyte mean corpuscular hemoglobin [Entitic mass] (test code = 54013-9) 32.6 pg 26.2-33.4 mean corpuscular HGB conc (t est code = mean corpuscular HGB conc) 33.9 g/dL 31.5-36.2 red cell distribution width (test code = red cell distribution width) 10.3 % 11.5-15.5 L Platelets [#/volume] in Bloo d (test code = 55922-7) 216 K/uL 137-338 Platelet mean volume [Entiti c volume] in Blood (test code = 20139-3) 9.2 fL 8.4-11.8 Neutrophils.band form/100 leukocytes in Blood (test code = 25781-9) 69.8 % 44.4-80.1 Lymphocytes/100 leukocytes i n Body fluid (test code = 37285-8) 22.0 % 10.0-50.0 Monocytes/100 leukocytes in Blood by Automated count (test code = 5905-5) 6.1 % 3.6-12.04 Eosinophils/100 leukocytes i n Blood by Automated count (test code = 713-8) 0.3 % 0.0-5.41 Basophils/100 leukocytes in Blood by Automated count (test code = 706-2) 1.8 % 0.0-0.79 H [facility]different[facility], [id number] 02:57:00 NeutrophilsBandLymphocyteAtypical LymphMonocyteEosinophilBasophilPlatelet EstimatePlatelet MorphologyPoikilocytosisTarget CellsHypersegmented PolysRouleauToxic VacuolationSmudge CellsUniversity [facility] CenterComprehensive metabolic 2000 panel - Serum or [id number] 02:57:00* Test Item Value Reference Range Interpretation Comme nts Glucose [Mass/volume] in Ser um or Plasma (test code = 2345-7) 103 mg/dL 74-106 Urea nitrogen [Mass/volume] in Serum or Plasma (test code = 3094-0) 14 mg/dL 6-20 Osmolality of Serum or Plasm a (test code = 2692-2) 271 280-300 L creatinine (test code = creatinine) 0.9 mg/dL 0.50-0.90 glomerular filtration rate ( test code = glomerular filtration rate) >60.00 Urea nitrogen/Creatinine [Ma ss Ratio] in Serum or Plasma (test code = 3097-3) 15.6 12-20 sodium level (test code = so dium level) 135 mmol/L 135-145 potassium level (test code = potassium level) 3.4 mmol/L 3.5-5.2 L chloride level (test code = chloride level) 94 mmol/L 98-108 L CO2 (test code = CO2) 21 mmol/L 21-32 anion gap (test code = anion gap) 23.4 mEq/L 12-20 H calcium level (test code = c alcium level) 9.6 mg/dL 8.6-10.0 total protein (test code = t otal protein) 8.3 g/dL 6.6-8.7 albumin (test code = albumin) 4.5 g/dL 3.5-5.2 globulin (test code = globulin) 3.8 gm/dL A/G ratio (test code = A/G ratio) 1.2 >1.0 bilirubin,total (test code = bilirubin,total) 0.8 mg/dL 0.0-1.2 AST/SGOT (test code = AST/SGOT) 34 U/L 15-32 H Alanine aminotransferase [Enzymatic activity/volume] in Serum or Plasma (test code = 1742-6) 56 U/L 0-33 H Alkaline phosphatase [Enzyma tic activity/volume] in Serum or Plasma (test code = 6768-6) 57 U/L 35-105 [facility] Auto Differential panel - [id number] 02:57:00 * Test Item Value Reference Range Interpretation Comme nts white blood count (test code = white blood count) 5.1 K/uL 4.0-11.5 red blood count (test code = red blood count) 4.29 M/uL 3.80-5.20 Hemoglobin [Mass/volume] in Blood (test code = 718-7) 14.0 g/dL 10.5-15.7 hematocrit (test code = hematocrit) 41.3 % 34.0-50.0 Erythrocyte mean corpuscular volume [Entitic volume] (test code = 81874-7) 96.3 fL 78-98 Erythrocyte mean corpuscular hemoglobin [Entitic mass] (test code = 57462-9) 32.6 pg 26.2-33.4 mean corpuscular HGB conc (t est code = mean corpuscular HGB conc) 33.9 g/dL 31.5-36.2 red cell distribution width (test code = red cell distribution width) 10.3 % 11.5-15.5 L Platelets [#/volume] in Bloo d (test code = 09063-7) 216 K/uL 137-338 Platelet mean volume [Entiti c volume] in Blood (test code = 42004-6) 9.2 fL 8.4-11.8 Neutrophils.band form/100 leukocytes in Blood (test code = 83707-6) 69.8 % 44.4-80.1 Lymphocytes/100 leukocytes i n Body fluid (test code = 31382-0) 22.0 % 10.0-50.0 Monocytes/100 leukocytes in Blood by Automated count (test code = 5905-5) 6.1 % 3.6-12.04 Eosinophils/100 leukocytes i n Blood by Automated count (test code = 713-8) 0.3 % 0.0-5.41 Basophils/100 leukocytes in Blood by Automated count (test code = 706-2) 1.8 % 0.0-0.79 H [facility], [id number] 02:57:00 NeutrophilsBandLymphocyteAtypical LymphMonocyteEosinophilBasophilPlatelet EstimatePlatelet MorphologyPoikilocytosisTarget CellsHypersegmented PolysRouleauToxic VacuolationSmudge CellsUniversity [facility] CenterComprehensive metabolic 2000 panel - Serum or [id number] 02:57:00* Test Item Value Reference Range Interpretation Comme nts Glucose [Mass/volume] in Ser um or Plasma (test code = 2345-7) 103 mg/dL 74-106 Urea nitrogen [Mass/volume] in Serum or Plasma (test code = 3094-0) 14 mg/dL 6-20 Osmolality of Serum or Plasm a (test code = 2692-2) 271 280-300 L creatinine (test code = creatinine) 0.9 mg/dL 0.50-0.90 glomerular filtration rate ( test code = glomerular filtration rate) >60.00 Urea nitrogen/Creatinine [Ma ss Ratio] in Serum or Plasma (test code = 3097-3) 15.6 12-20 sodium level (test code = so dium level) 135 mmol/L 135-145 potassium level (test code = potassium level) 3.4 mmol/L 3.5-5.2 L chloride level (test code = chloride level) 94 mmol/L 98-108 L CO2 (test code = CO2) 21 mmol/L 21-32 anion gap (test code = anion gap) 23.4 mEq/L 12-20 H calcium level (test code = c alcium level) 9.6 mg/dL 8.6-10.0 total protein (test code = t otal protein) 8.3 g/dL 6.6-8.7 albumin (test code = albumin) 4.5 g/dL 3.5-5.2 globulin (test code = globulin) 3.8 gm/dL A/G ratio (test code = A/G ratio) 1.2 >1.0 bilirubin,total (test code = bilirubin,total) 0.8 mg/dL 0.0-1.2 AST/SGOT (test code = AST/SGOT) 34 U/L 15-32 H Alanine aminotransferase [Enzymatic activity/volume] in Serum or Plasma (test code = 1742-6) 56 U/L 0-33 H Alkaline phosphatase [Enzyma tic activity/volume] in Serum or Plasma (test code = 6768-6) 57 U/L 35-105 [facility]CB [facility] Auto Differential panel - [id number] 07:30:00 * Test Item Value Reference Range Interpretation Comme nts white blood count (test code = white blood count) 5.0 K/uL 4.0-11.5 red blood count (test code = red blood count) 3.92 M/uL 3.80-5.20 Hemoglobin [Mass/volume] in Blood (test code = 718-7) 12.9 g/dL 10.5-15.7 hematocrit (test code = hematocrit) 38.7 % 34.0-50.0 Erythrocyte mean corpuscular volume [Entitic volume] (test code = 42401-3) 98.7 fL 78-98 H Erythrocyte mean corpuscular hemoglobin [Entitic mass] (test code = 82003-2) 33.0 pg 26.2-33.4 mean corpuscular HGB conc (t est code = mean corpuscular HGB conc) 33.4 g/dL 31.5-36.2 red cell distribution width (test code = red cell distribution width) 11.3 % 11.5-15.5 L Platelets [#/volume] in Bloo d (test code = 60531-6) 207 K/uL 137-338 Platelet mean volume [Entiti c volume] in Blood (test code = 07664-8) 7.7 fL 8.4-11.8 L Neutrophils.band form/100 leukocytes in Blood (test code = 35706-7) 54.8 % 44.4-80.1 Lymphocytes/100 leukocytes i n Body fluid (test code = 74424-4) 35.5 % 10.0-50.0 Monocytes/100 leukocytes in Blood by Automated count (test code = 5905-5) 6.5 % 3.6-12.04 Eosinophils/100 leukocytes i n Blood by Automated count (test code = 713-8) 1.4 % 0.0-5.41 Basophils/100 leukocytes in Blood by Automated count (test code = 706-2) 1.7 % 0.0-0.79 H [facility] Groupdifferential panel, [id number] 07:30:00 NeutrophilsBandLymphocyteMonocytePlatelet EstimateMatagoCommunity Hospital GroupRubella virus IgG Ab [Titer] in [id number] 07:30:00* Test Item Value Reference Range Interpretation Comme nts Rubella virus IgG Ab [Units/volume] in Serum by Immunoassay (test code = 5334-8) 106.7 [IU]/mL [facility] GroupHIV [facility]+2 Ab [Presence] in [id number] 07:30:00HIV P24 AgHIV-1/2 AbMat[facility] GroupABO & Rh group [Type] in [id number] 07:30:00* Test Item Value Reference Range Interpretation Comme nts Rh [Type] in Blood (test cod e = 07289-9) 4+ ABO and Rh group panel - Blo od (test code = 98677-6) Ab positive [facility] GroupBlood group antibody screen [Presence] in Serum or Plasma 2019-01-26 07:30:00* Test Item Value Reference Range Interpretation Comme nts Blood group antibody screen [Presence] in Serum or Plasma (test code = 890-4) negative [facility] GroupReagin Ab [Presence] in Serum by [id number] 07:30:00* Test Item Value Reference Range Interpretation Comme nts Reagin Ab [Presence] in Seru m by RPR (test code = 22602-7) nonreactive nonreactive [facility] GroupHepatitis B virus surface Ag [Presence] in Serum 2019-01-26 07:30:00* Test Item Value Reference Range Interpretation Comme nts .hepatitis B surface antigen (test code = .hepatitis B surface antigen) negative negative [facility] GroupBacteria identified in Urine by [id number] 07:30:00* Test Item Value Reference Range Interpretation Comme nts Bacteria identified in Urine by Culture (test code = 630-4) no growth at 48 hrs. [facility] GroupCBC W Auto Differential panel - [id number] 07:30:00 * Test Item Value Reference Range Interpretation Comme nts white blood count (test code = white blood count) 5.0 K/uL 4.0-11.5 red blood count (test code = red blood count) 3.92 M/uL 3.80-5.20 Hemoglobin [Mass/volume] in Blood (test code = 718-7) 12.9 g/dL 10.5-15.7 hematocrit (test code = hematocrit) 38.7 % 34.0-50.0 Erythrocyte mean corpuscular volume [Entitic volume] (test code = 78378-8) 98.7 fL 78-98 H Erythrocyte mean corpuscular hemoglobin [Entitic mass] (test code = 48635-7) 33.0 pg 26.2-33.4 mean corpuscular HGB conc (t est code = mean corpuscular HGB conc) 33.4 g/dL 31.5-36.2 red cell distribution width (test code = red cell distribution width) 11.3 % 11.5-15.5 L Platelets [#/volume] in Bloo d (test code = 99682-0) 207 K/uL 137-338 Platelet mean volume [Entiti c volume] in Blood (test code = 92158-6) 7.7 fL 8.4-11.8 L Neutrophils.band form/100 leukocytes in Blood (test code = 55839-2) 54.8 % 44.4-80.1 Lymphocytes/100 leukocytes i n Body fluid (test code = 64154-3) 35.5 % 10.0-50.0 Monocytes/100 leukocytes in Blood by Automated count (test code = 5905-5) 6.5 % 3.6-12.04 Eosinophils/100 leukocytes i n Blood by Automated count (test code = 713-8) 1.4 % 0.0-5.41 Basophils/100 leukocytes in Blood by Automated count (test code = 706-2) 1.7 % 0.0-0.79 H [facility]different[facility], [id number] 07:30:00 NeutrophilsBandLymphocyteMonocytePlatelet EstimateMaMississippi State HospitalRubella virus IgG Ab [Titer] in [id number] 07:30:00* Test Item Value Reference Range Interpretation Comme nts Rubella virus IgG Ab [Units/volume] in Serum by Immunoassay (test code = 5334-8) 106.7 [IU]/mL [facility] CenterHIV 1+2 Ab [Presence] in [id number] 07:30:00HIV P24 AgHIV-1/2 AbMatagorda Medical GroupABO & Rh group [Type] in [id number] 07:30:00* Test Item Value Reference Range Interpretation Comme nts Rh [Type] in Blood (test cod e = 31244-7) 4+ ABO and Rh group panel - Blo od (test code = 10240-1) Ab positive [facility] GroupBlood group antibody screen [Presence] in Serum or Plasma 2019-01-26 07:30:00* Test Item Value Reference Range Interpretation Comme nts Blood group antibody screen [Presence] in Serum or Plasma (test code = 890-4) negative [facility] GroupReagin Ab [Presence] in Serum by [id number] 07:30:00* Test Item Value Reference Range Interpretation Comme nts Reagin Ab [Presence] in Seru m by RPR (test code = 26228-2) nonreactive nonreactive [facility] GroupHepatitis B virus surface Ag [Presence] in Serum 2019-01-26 07:30:00* Test Item Value Reference Range Interpretation Comme nts .hepatitis B surface antigen (test code = .hepatitis B surface antigen) negative negative [facility] GroupBacteria identified in Urine by [id number] 07:30:00* Test Item Value Reference Range Interpretation Comme nts Bacteria identified in Urine by Culture (test code = 630-4) no growth at 48 hrs. [facility] GroupCBC W Auto Differential panel - [id number] 07:30:00 * Test Item Value Reference Range Interpretation Comme nts white blood count (test code = white blood count) 5.0 K/uL 4.0-11.5 red blood count (test code = red blood count) 3.92 M/uL 3.80-5.20 Hemoglobin [Mass/volume] in Blood (test code = 718-7) 12.9 g/dL 10.5-15.7 hematocrit (test code = hematocrit) 38.7 % 34.0-50.0 Erythrocyte mean corpuscular volume [Entitic volume] (test code = 71304-1) 98.7 fL 78-98 H Erythrocyte mean corpuscular hemoglobin [Entitic mass] (test code = 03470-6) 33.0 pg 26.2-33.4 mean corpuscular HGB conc (t est code = mean corpuscular HGB conc) 33.4 g/dL 31.5-36.2 red cell distribution width (test code = red cell distribution width) 11.3 % 11.5-15.5 L Platelets [#/volume] in Bloo d (test code = 15646-6) 207 K/uL 137-338 Platelet mean volume [Entiti c volume] in Blood (test code = 75036-7) 7.7 fL 8.4-11.8 L Neutrophils.band form/100 leukocytes in Blood (test code = 64939-5) 54.8 % 44.4-80.1 Lymphocytes/100 leukocytes i n Body fluid (test code = 78699-0) 35.5 % 10.0-50.0 Monocytes/100 leukocytes in Blood by Automated count (test code = 5905-5) 6.5 % 3.6-12.04 Eosinophils/100 leukocytes i n Blood by Automated count (test code = 713-8) 1.4 % 0.0-5.41 Basophils/100 leukocytes in Blood by Automated count (test code = 706-2) 1.7 % 0.0-0.79 H [facility] Groupdifferential panel, [id number] 07:30:00 NeutrophilsBandLymphocyteMonocytePlatelet EstimateMatagorda Medical GroupRubella virus Ab [Titer] in [id number] 07:30:00* Test Item Value Reference Range Interpretation Comme nts Rubella virus IgG Ab [Units/volume] in Serum by Immunoassay (test code = 5334-8) 106.7 [IU]/mL [facility] GroupHIV 1+2 Ab [Presence] in [id number] 07:30:00HIV P24 AgHIV-1/2 AbMatagorda Medical GroupABO & Rh group [Type] in [id number] 07:30:00* Test Item Value Reference Range Interpretation Comme nts Rh [Type] in Blood (test cod e = 38111-9) 4+ ABO and Rh group panel - Blo od (test code = 37549-4) Ab positive [facility] GroupBlood group antibody screen [Presence] in Serum or Plasma 2019-01-26 07:30:00* Test Item Value Reference Range Interpretation Comme nts Blood group antibody screen [Presence] in Serum or Plasma (test code = 890-4) negative [facility] GroupReagin Ab [Presence] in Serum by [id number] 07:30:00* Test Item Value Reference Range Interpretation Comme nts Reagin Ab [Presence] in Seru m by RPR (test code = 98758-2) nonreactive nonreactive [facility] CenterHepatitis B virus surface Ag [Presence] in Serum 2019-01-26 07:30:00* Test Item Value Reference Range Interpretation Comme nts .hepatitis B surface antigen (test code = .hepatitis B surface antigen) negative negative [facility] CenterBacteria identified in Urine by [id number] 07:30:00* Test Item Value Reference Range Interpretation Comme nts Bacteria identified in Urine by Culture (test code = 630-4) no growth at 48 hrs. [facility] CenterChoriogonadotropin.beta subunit [Units/volume] in Serum or [id number] 02:05:00* Test Item Value Reference Range Interpretation Comme nts HCG quantitative (test code = HCG quantitative) 4590.0 mIU/mL 0-5 H [facility] CenterChoriogonadotropin.beta subunit [Units/volume] in Serum or [id number] 02:05:00* Test Item Value Reference Range Interpretation Comme nts HCG quantitative (test code = HCG quantitative) 4590.0 mIU/mL 0-5 H [facility] CenterChoriogonadotropin.beta subunit [Units/volume] in Serum or [id number] 02:05:00* Test Item Value Reference Range Interpretation Comme nts HCG quantitative (test code = HCG quantitative) 4590.0 mIU/mL 0-5 H [facility] W Auto Differential panel - [id number] 11:00:00 * Test Item Value Reference Range Interpretation Comme nts white blood count (test code = white blood count) 4.9 K/uL 4.0-11.5 red blood count (test code = red blood count) 4.02 M/uL 3.80-5.20 Hemoglobin [Mass/volume] in Blood (test code = 718-7) 13.0 g/dL 10.5-15.7 hematocrit (test code = hematocrit) 40.1 % 34.0-50.0 Erythrocyte mean corpuscular volume [Entitic volume] (test code = 08687-0) 99.7 fL 78-98 H Erythrocyte mean corpuscular hemoglobin [Entitic mass] (test code = 76054-2) 32.4 pg 26.2-33.4 mean corpuscular HGB conc (t est code = mean corpuscular HGB conc) 32.5 g/dL 31.5-36.2 red cell distribution width (test code = red cell distribution width) 11.4 % 11.5-15.5 L Platelets [#/volume] in Bloo d (test code = 66813-7) 212 K/uL 137-338 Platelet mean volume [Entiti c volume] in Blood (test code = 81263-2) 8.4 fL 8.4-11.8 Neutrophils.band form/100 leukocytes in Blood (test code = 96704-8) 53.6 % 44.4-80.1 Lymphocytes/100 leukocytes i n Body fluid (test code = 23876-3) 37.4 % 10.0-50.0 Monocytes/100 leukocytes in Blood by Automated count (test code = 5905-5) 5.5 % 3.6-12.04 Eosinophils/100 leukocytes i n Blood by Automated count (test code = 713-8) 1.9 % 0.0-5.41 Basophils/100 leukocytes in Blood by Automated count (test code = 706-2) 1.6 % 0.0-0.79 H [facility] Groupdifferential panel, [id number] 11:00:00 NeutrophilsBandLymphocyteMonocyteEosinophilBasophilPlatelet EstimatePlatelet MorphologyPolychromasiaHypochromasiaPoikilocytosisBasophilic StipplingAnisocytosisMicrocytosisMacrocytosisOvalocytesStomatocyteBurr CellsAcanthocytesMatagoa Medical GroupReagin Ab [Presence] in Serum by R 2019-01-03 11:00:00* Test Item Value Reference Range Interpretation Comme nts Reagin Ab [Presence] in Seru m by RPR (test code = 30824-5) nonreactive nonreactive [facility] CenterComprehensive metabolic 2000 panel - Serum or Plasma 2019-01-03 11:00:00* Test Item Value Reference Range Interpretation Comme nts Glucose [Mass/volume] in Ser um or Plasma (test code = 2345-7) 96 mg/dL 74-106 Urea nitrogen [Mass/volume] in Serum or Plasma (test code = 3094-0) 12 mg/dL 6-20 Osmolality of Serum or Plasm a (test code = 2692-2) 277 280-300 L creatinine (test code = creatinine) 0.9 mg/dL 0.50-0.90 glomerular filtration rate ( test code = glomerular filtration rate) >60.00 Urea nitrogen/Creatinine [Ma ss Ratio] in Serum or Plasma (test code = 3097-3) 13.3 12-20 sodium level (test code = so dium level) 139 mmol/L 135-145 potassium level (test code = potassium level) 4.0 mmol/L 3.5-5.2 chloride level (test code = chloride level) 103 mmol/L 98-108 CO2 (test code = CO2) 24 mmol/L 21-32 anion gap (test code = anion gap) 16.0 mEq/L 12-20 calcium level (test code = c alcium level) 9.5 mg/dL 8.6-10.0 total protein (test code = t otal protein) 7.8 g/dL 6.6-8.7 albumin (test code = albumin) 4.4 g/dL 3.5-5.2 globulin (test code = globulin) 3.4 gm/dL A/G ratio (test code = A/G ratio) 1.3 >1.0 bilirubin,total (test code = bilirubin,total) 0.4 mg/dL 0.0-1.2 AST/SGOT (test code = AST/SGOT) 15 U/L 15-32 Alanine aminotransferase [Enzymatic activity/volume] in Serum or Plasma (test code = 1742-6) 12 U/L 0-33 Alkaline phosphatase [Enzyma tic activity/volume] in Serum or Plasma (test code = 6768-6) 59 U/L 35-105 [facility] CenterHIV 1+2 Ab [Presence] in [id number] 11:00:00HIV P24 AgMAV-1/2 AbMaMississippi State HospitalHepatitis B virus surface Ag [Presence] in [id number] 11:00:00* Test Item Value Reference Range Interpretation Comme nts .hepatitis B surface antigen (test code = .hepatitis B surface antigen) negative negative [facility]
[2023-10-26 19:33] LABS: Absolute Lymphocytes (CBC) 2.4 K/uL (0.7-4.9); Hematocrit 38.9 % (36.0-45.0); Lymphocytes % 44.9 % (15.3-44.8); MCV 95.6 fL (80-100); MPV 8.1 fL (7.6-11.3); Platelets 231 thou/uL (152-406); RBC Red Blood Cell Count 4.07 M/uL (3.86-4.86)
[2023-10-26 19:34] LABS: Specific Gravity 1.028 (1.005-1.030); Urine Bilirubin NEGATIVE (Negative); Urine Blood Negative (Negative); Urine Clarity Clear (Clear); Urine Color Light-Yellow (Yellow); Urine Glucose NEGATIVE (Negative); Urine Protein NEGATIVE (Negative); Urine Urobilinogen Normal (Normal)
[2023-10-26 19:35] LABS: Specific Gravity 1.028 (1.005-1.030)
[2023-10-26 19:49] LABS: Albumin 3.6 g/dL (3.4-5.0); Bilirubin Total 0.2 mg/dL (0.2-1.0); Potassium 3.8 mEq/L (3.5-5.1); Protein, Total 7.9 g/dL (6.4-8.2)
--- NOTE | 2023-10-26 19:57 | ER ---
Nurse's Notes [facility] Name: Jade Murillo Age: 33 yrs Sex: Female : 1990 Arrival Date: 10/26/2023 Time: 17:42 Bed 20 Private MD: Diagnosis: Headache;Nausea with vomiting, unspecified Presentation: 10/26 17:48 Chief complaint: Patient states: Headache since yesterday, vomiting today. No diarrhea. nj1 Denies fever. Coronavirus screen: Vaccine status: Patient reports being unvaccinated. Ebola Screen: Patient denies travel to an Ebola-affected area in the 21 days before illness onset. Initial Sepsis Screen: Does the patient meet any 2 criteria? No. Patient's initial sepsis screen is negative. Does the patient have a suspected source of infection? No. Patient's initial sepsis screen is negative. Risk Assessment: Do you want to hurt yourself or someone else? Patient reports no desire to harm self or others. Onset of symptoms was October 25, 2023. 17:48 Method Of Arrival: Ambulatory [facility] 17:48 Acuity: KEVYN 3 nj1 Historical: - Allergies: 17:51 No Known Allergies; nj1 - PMHx: 17:51 None; nj1 - PSHx: 17:51 section; Cholecystectomy; D\T\C; nj1 - Immunization history:: Client reports having NOT received the Covid vaccine. - Social history:: Smoking status: Patient denies any tobacco usage or history of. Screenin:00 [facility] ED Fall Risk Assessment (Adult) History of falling in the last 3 months, jw7 including since admission No falls in past 3 months (0 pts) Score/Fall Risk Level 0 - 2 = Low Risk Oriented to surroundings, Maintained a safe environment. Abuse screen: Denies threats or abuse. Denies injuries from another. Nutritional screening: No deficits noted. Tuberculosis screening: No symptoms or risk factors identified. Assessment: 19:00 General: Appears in no apparent distress. comfortable, Behavior is calm, cooperative. jw7 19:00 Pain: Complains of pain in Head Pain does not radiate. Pain currently is 7 out of 10 on jw7 a pain scale. Quality of pain is described as pressure, Pain began suddenly, Is continuous. Neuro: Galvan Agitation-Sedation Scale (RASS): 0 - Alert and Calm Level of Consciousness is awake, alert, obeys commands, Oriented to person, place, time, situation. Cardiovascular: Capillary refill < 3 seconds Patient's skin is warm and dry. Respiratory: Airway is patent Trachea midline Respiratory effort is even, unlabored, Respiratory pattern is regular, symmetrical. GI: No deficits noted. No signs and/or symptoms were reported involving the gastrointestinal system. : No deficits noted. No signs and/or symptoms were reported regarding the genitourinary system. EENT: No deficits noted. No signs and/or symptoms were reported regarding the EENT system. Derm: Skin is intact, is healthy with good turgor, Skin is dry, Skin is normal, Skin temperature is warm. Musculoskeletal: Circulation, motion, and sensation intact. Range of motion: intact in all extremities. 20:00 Reassessment: Patient appears in no apparent distress at this time. Patient and/or jw7 family updated on plan of care and expected duration. Pain level reassessed. Patient is alert, oriented x 3, equal unlabored respirations, skin warm/dry/pink. Patient states symptoms have improved. Vital Signs: 17:48 BP 131 / 94; Pulse 66; Resp 16; Temp 98.2(O); Pulse Ox 100% on R/A; Weight 71.21 kg; nj1 Height 5 ft. 4 in. ; Pain 8/10; 20:00 BP 107 / 74; Pulse 67; Resp 17 S; Pulse Ox 100% on R/A; jw7 17:48 Body Mass Index 26.95 (71.21 kg, 162.56 cm) nj1 17:48 Pain Scale: Adult nj1 Sumit Coma Score: 22:13 Eye Response: spontaneous(4). Motor Response: obeys commands(6). Verbal Response: kb oriented(5). Total: 15. ED Course: 17:44 Patient arrived in ED. rg4 17:46 Shana Wooten FNP-C is [facility]. kb 17:46 William Castaneda MD is Attending Physician. kb 17:51 Triage completed. nj1 17:52 Arm band placed on right wrist. nj1 19:00 Patient has correct armband on for positive identification. Bed in low position. Call [facility] light in reach. Side rails up X 1. 19:07 Melissa Mauro RN is Primary Nurse. jw7 19:26 CBC with Diff Sent. cg3 19:26 CMP Sent. cg3 19:26 Lipase Sent. cg3 19:26 Test, Urine Sent. cg3 19:26 Urinalysis w/ reflexes Sent. cg3 19:26 Inserted saline lock: 20 gauge in right antecubital area, using aseptic technique. cg3 Blood collected. 20:29 Provided Education on: discharge instructions. jw7 20:29 No provider procedures requiring assistance completed. jw7 20:39 IV discontinued, intact, bleeding controlled, No redness/swelling at site. Pressure jw7 dressing applied. Administered Medications: 19:38 Drug: diphenhydrAMINE IVP 12.5 mg IVP once Route: IVP; Site: right antecubital; jw7 20:39 Follow up: Response: No adverse reaction; Marked relief of symptoms jw7 19:38 Drug: metoCLOPramide IVP 10 mg IVP once; over 1 to 2 minutes Route: IVP; Site: right jw7 antecubital; 20:39 Follow up: Response: No adverse reaction; Marked relief of symptoms jw7 19:39 Drug: NS 0.9% IV 1000 ml IV at 1 bolus Per protocol; 1000 mL bolus Route: IV; Rate: 1 jw7 bolus; Site: right antecubital; 20:38 Follow up: Response: No adverse reaction; IV Status: Completed infusion; IV Intake: jw7 1000ml 19:39 Drug: TORadol - Ketorolac IVP 15 mg IVP once Route: IVP; Site: right antecubital; jw7 20:38 Follow up: Response: No adverse reaction; Marked relief of symptoms jw7 Medication: 20:29 VIS not applicable for this client. jw7 Intake: 20:38 IV: 1000ml; Total: 1000ml. jw7 Outcome: 19:56 Discharge ordered by MD. sheikh 20:39 Discharged to home ambulatory, jw7 20:39 Condition: stable 20:39 Discharge instructions given to patient, Instructed on discharge instructions, follow up and referral plans. medication usage, Demonstrated understanding of instructions, follow-up care, medications, Prescriptions given X 1, 20:39 Patient left the ED. jw7 Signatures: Shana Wooten, ALEXANDER-C ALEXANDER-Keara Thomason rg4 Melissa Mauro RN RN jw7 Wilma Whiteside RN RN nj1 Abdirahman, Coral cg3
--- NOTE | 2023-10-26 19:57 | EDPHYS ---
Physician Documentation [facility] Name: Jade Murillo Age: 33 yrs Sex: Female : 1990 Arrival Date: 10/26/2023 Time: 17:42 Bed 20 Private MD: ED Physician William Castaneda HPI: 10/26 22:12 This 33 yrs old Black Female presents to ER via Ambulatory with complaints of Headache, kb Abdominal Pain. 22:12 Patient is a 33-year-old female who presents for headache, nausea and vomiting that kb started 2 days ago. Reports history of migraine and states this headache feels similar to when she has had in the past. States migraines normally cause nausea and vomiting but this feels more like a stomach bug. Denies abdominal pain and fever.. Historical: - Allergies: 17:51 No Known Allergies; nj1 - PMHx: 17:51 None; nj1 - PSHx: 17:51 section; Cholecystectomy; D\T\C; nj1 - Immunization history:: Client reports having NOT received the Covid vaccine. - Social history:: Smoking status: Patient denies any tobacco usage or history of. ROS: 22:12 Constitutional: Negative for fever, chills, and weight loss, kb 22:12 Abdomen/GI: Positive for nausea and vomiting, Negative for abdominal pain, diarrhea, 22:12 Neuro: Positive for headache, 22:12 All other systems are negative, Exam: 22:12 Constitutional: This is a well developed, well nourished patient who is awake, alert, kb and in no acute distress. Head/Face: Normocephalic, atraumatic. ENT: Moist Mucous membranes Cardiovascular: Regular rate Respiratory: Respirations even and unlabored. No increased work of breathing. Talking in full sentences Abdomen/GI: Soft, non-tender. No distention Skin: Warm, dry with normal turgor. Normal color. MS/ Extremity: Pulses equal, no cyanosis. Neurovascular intact. Full, normal range of motion. Neuro: Awake and alert, GCS 15, oriented to person, place, time, and situation. Moves all extremities. Normal gait. Vital Signs: 17:48 BP 131 / 94; Pulse 66; Resp 16; Temp 98.2(O); Pulse Ox 100% on R/A; Weight 71.21 kg; nj1 Height 5 ft. 4 in. ; Pain 8/10; 20:00 BP 107 / 74; Pulse 67; Resp 17 S; Pulse Ox 100% on R/A; jw7 17:48 Body Mass Index 26.95 (71.21 kg, 162.56 cm) nj1 17:48 Pain Scale: Adult nj1 Sumit Coma Score: 22:13 Eye Response: spontaneous(4). Motor Response: obeys commands(6). Verbal Response: kb oriented(5). Total: 15. MDM: 17:47 Patient medically screened. kb 22:13 Differential diagnosis: migraine, sinusitis, tension headache, Gastroenteritis, kb dehydration. Data reviewed: vital signs, nurses notes. Counseling: I had a detailed discussion with the patient and/or guardian regarding the historical points, exam findings, and any diagnostic results supporting the discharge/admit diagnosis, lab results, the need for outpatient follow up, a family practitioner, to return to the emergency department if symptoms worsen or persist or if there are any questions or concerns that arise at home. Response to treatment: the patient's symptoms have markedly improved after treatment. 10/26 18:31 Order name: CBC with Diff; Complete Time: 19:45 kb 10/26 18:31 Order name: CMP; Complete Time: 19:53 kb 10/26 18:31 Order name: Lipase; Complete Time: 19:53 kb 10/26 18:31 Order name: Test, Urine; Complete Time: 19:45 kb 10/26 18:31 Order name: Urinalysis w/ reflexes; Complete Time: 19:45 kb 10/26 18:31 Order name: IV Saline Lock; Complete Time: 19:26 kb 10/26 18:31 Order name: Labs collected and sent; Complete Time: 19:26 kb Administered Medications: 19:38 Drug: diphenhydrAMINE IVP 12.5 mg IVP once Route: IVP; Site: right antecubital; jw 20:39 Follow up: Response: No adverse reaction; Marked relief of symptoms jw7 19:38 Drug: metoCLOPramide IVP 10 mg IVP once; over 1 to 2 minutes Route: IVP; Site: right jw antecubital; 20:39 Follow up: Response: No adverse reaction; Marked relief of symptoms jw7 19:39 Drug: NS 0.9% IV 1000 ml IV at 1 bolus Per protocol; 1000 mL bolus Route: IV; Rate: 1 jw7 bolus; Site: right antecubital; 20:38 Follow up: Response: No adverse reaction; IV Status: Completed infusion; IV Intake: jw7 1000ml 19:39 Drug: TORadol - Ketorolac IVP 15 mg IVP once Route: IVP; Site: right antecubital; jw7 20:38 Follow up: Response: No adverse reaction; Marked relief of symptoms jw7 Disposition Summary: 10/26/23 19:56 Discharge Ordered Notes: Location: Home kb Condition: Stable kb Diagnosis - Headache kb - Nausea with vomiting, unspecified kb Followup: kb - With: Emergency Department - When: As needed - Reason: Worsening of condition Followup: kb - With: Private Physician - When: 2 - 3 days - Reason: Recheck today's complaints, Continuance of care, Re-evaluation by your physician Discharge Instructions: - Discharge Summary Sheet kb - Nausea and Vomiting, Adult, [id number]-[id number] kb - Migraine Headache, [id number] kb Forms: - Medication Reconciliation Form kb - Thank You Letter kb - Antibiotic Education kb - Prescription Opioid Use kb - Patient Portal Instructions kb - Leadership Thank You Letter kb - Work release form jw7 Prescriptions: - Zofran 4 mg Oral tablet - take 1 tablet ORAL route every 6 hours As needed; 12 tablet; Refills: 0, kb Product Selection Permitted Signatures: Dispatcher [employer] Shana Victoria FNP-C FNP-Melissa Barrios RN RN jw7 Wilma Whiteside RN RN nj1
[2023-10-26 21:16] VITALS: TEMP 98.2; O2SAT 100
[2023-10-26 21:20] VITALS: BP 107/74
== END ==
LOC: ER 17:42
DX: R51.9 Headache, unspecified (principal); R11.2 Nausea with vomiting, unspecified
CPT/HCPCS: 36415; 80053; 81003; 81025; 83690; 85025; 96361; 96374; 96375; 99284; J1200; J2765; J7030

== ENCOUNTER → 2023-11-04 | Emergency (ER) | payer OTHER, SELFPAY ==
--- OUTSIDE RECORDS SUMMARY | 2023-11-04 13:31 | XMS REPORT | Continuity of Care Document ---
Author Name Unknown Address [address] [facility] [address] [place] [address] [facility] thconnect Address [address] [facility] [address] [place] [address] Care Team Providers Care Lamination Spinner Name Role Phone CLARICE SMITH Primary Care Physician CLARICE Khalil Attending Clinician UnavailCLARICE Gutierres Attending Clinician Unavailab giovana Fernández_Yas Attending Clinician Unavailable PATRICIA THOMAS Attending Clinician Unavailable 2, [facility] Attending Clinician Unavailable ARUN GUNTER Attending Clinician Unavailveronika ALFORD Attending Clinician Unavailab YRAY Rondon Attending Clinician Unavailable AYZA DURAND Attending Clinician Unavail able JUDY FERNÁNDEZ Attending Clinician Unavaila ble MIKE LYONS Attending Clinician Unavailable OWEN RINCON Attending Clinician Unavaila FABIO Otto Attending Clinician Unavailable GRAZYNA PEDRAZA Attending Clinician Unavailab MARY Joyce Attending Clinician Unavailable RAMIRO MAY Attending Clinician Unavailab KATELYNN De Leon Attending Clinician Unavailable YUNG MEDEIROS Attending Clinician Unavailable Rene Goins Attending Clinician Unavailab NATALIE Farris Attending Clinician Unavailable NADINE PINTO Attending Clinician Unavailable Romy Admitting Clinician Unavailable PRASHANTH Admitting Clinician Unavailab JUDY Badillo Admitting Clinician Unavaila ble Payers Payer Name Policy Type Policy Number Effective Date Expirati on Date Source [facility] [id number] 2022 00:00:00 [facility] [id number] [facility] (MEDICAID REPLACEMENT - HMO) [id number] 2022 00:00:00 2023 00:00:00 [place] [facility] [place]ID[place] [id number] [place] [id number] 2019 00:00:00 [place] [facility] - [facility] MEDICAL LIMITED PLAN - MULTIPLAN [id number] Problems Condition Name Condition Details Condition Category [...] disease screening Venereal Disease Screening Problem Active 08-05 00:00: 00 [facility] Irregular intermenst rual bleeding Irregular Intermenst rual Bleeding Problem Active 04-23 00:00: 00 [facility] Initiation of transderma l contracept ion done Initiation of Transderma l Contracept ion Done Problem Active 04-23 00:00: 00 [facility] care Care Problem Active 2018-11 00:00: 00 [facility] Initiation of depot contracept ion done Initiation of [place] Contracept ion Done Problem Active 2018-11 00:00: 00 [facility] Contracept ion education Contracept ion Education Problem Active 2018-11 00:00: 00 [facility] Small for gestationa l age fetus Small for Gestationa l Age Fetus Problem Active 07-05 00:00: 00 [facility] Unintentio nal weight loss Unintentio nal Weight Loss Problem Active 03-14 00:00: 00 [facility] Severe hyperemesi s gravidarum Severe Hyperemesi s Gravidarum Problem Active 409 00:00: 00 [facility] No known active problems No known active problems Disease [facility] Allergies, Adverse Reactions, Alerts Allergy Name Allergy Type Status Severity Reaction(s) Onset Date Inactive Date Treating Clinician Comments Source NO KNOWN ALLERGIE S Drug Class Active [facility] Social History Social Habit Start Date Stop Date Quantity Comments Source Exposure to SARS-CoV-2 (event) 2022-11-10 00:00:00 2022-11-20 13:38:00 Not sure [facility] Sex Assigned At 1990 00:00:00 1990 00:00:00 [facility] Smoking Status Start Date Stop Date Source Never Smoker [facility] Tobacco smoking consumption unknown [facility] Medications Ordered Medication Name Filled Medication Name Start Date Stop Date Current Medication? Ordering Clinician Indication Dosage Frequency Signature (SIG) Comments Components Source medroxyprog esterone 150 mg/mL intramuscul ar suspensionI nject 1 mL every 3 months by intramuscul ar route. medroxyprog esterone 150 mg/mL intramuscul ar suspensionI nject 1 mL every 3 months by intramuscul ar route. 2022-11 2-14 10:39: 54 No medroxypro gesterone 150 mg/mL intramuscu lar suspension Inject 1 mL every 3 months by intramuscu lar route. [facility] EPINEPHrine 0.15 mg/0.3 mL injection 11-12 00:00: 00 Yes INJECT 0.3 ML(S) INTRAMUSCU LARLY NEEDED FOR ANAPHYLAXI S. [facility] EPINEPHrine 0.15 mg/0.3 mL injection 11-12 00:00: 00 Yes INJECT 0.3 ML(S) INTRAMUSCU LARLY NEEDED FOR ANAPHYLAXI S. [facility] EPINEPHrine 0.15 mg/0.3 mL injection 11-12 00:00: 00 Yes INJECT 0.3 ML(S) INTRAMUSCU LARLY NEEDED FOR ANAPHYLAXI S. [facility] medroxyprog esterone 10 mg tablet TAKE ONE (1) TABLET(S) BY MOUTH ONCE A DAY. medroxyprog esterone 10 mg tablet TAKE ONE (1) TABLET(S) BY MOUTH ONCE A DAY. No medroxypro gesterone 10 mg tablet TAKE ONE (1) TABLET(S) BY MOUTH ONCE A DAY. [facility] medroxyprog esterone 150 mg/mL intramuscul ar suspension Inject 1 mL every 3 months by intramuscul ar route. medroxyprog esterone 150 mg/mL intramuscul ar suspension Inject 1 mL every 3 months by intramuscul ar route. No 1mL medroxypro gesterone 150 mg/mL intramuscu lar suspension Inject 1 mL every 3 months by intramuscu lar route. [facility] cholecalcif jeremiah (vitamin D3) 1,250 mcg (50,000 unit) capsule TAKE ONE (1) CAPSULE(S) BY MOUTH ONCE WEEKLY. cholecalcif jeremiah (vitamin D3) 1,250 mcg (50,000 unit) capsule TAKE ONE (1) CAPSULE(S) BY MOUTH ONCE WEEKLY. No cholecalci ferol (vitamin D3) 1,250 mcg (50,000 unit) capsule TAKE ONE (1) CAPSULE(S) BY MOUTH ONCE WEEKLY. [facility] medroxyprog esterone 150 mg/mL intramuscul ar suspension Inject 1 mL every 3 months by intramuscul ar route. medroxyprog esterone 150 mg/mL intramuscul ar suspension Inject 1 mL every 3 months by intramuscul ar route. No 1mL medroxypro gesterone 150 mg/mL intramuscu lar suspension Inject 1 mL every 3 months by intramuscu lar route. [facility] medroxyprog esterone 150 mg/mL intramuscul ar syringe INJECT ONE (1) ML(S) INTO THE MUSCLE EVERY 3 MONTHS. medroxyprog esterone 150 mg/mL intramuscul ar syringe INJECT ONE (1) ML(S) INTO THE MUSCLE EVERY 3 MONTHS. No medroxypro gesterone 150 mg/mL intramuscu lar syringe INJECT ONE (1) ML(S) INTO THE MUSCLE EVERY 3 MONTHS. [facility] Provera 10 mg tablet Take 1 tablet every day by oral route for 14 days. Provera 10 mg tablet Take 1 tablet every day by oral route for 14 days. No 1 Q1D Provera 10 mg tablet Take 1 tablet every day by oral route for 14 days. [facility] Vital Signs Vital Name Observation Time Observation Value Comments S ource Body Weight 2023-10-21 00:00:00 156.3 [lb_av] [facility] Height 2023-10-21 00:00:00 64 [in_i] [facility] BP Systolic 2023-10-21 00:00:00 132 mm[Hg] [facility] BP Diastolic 2023-10-21 00:00:00 89 mm[Hg] [facility] BMI (Body Mass Index) 2023-10-21 00:00:00 26.8 kg/m2 [facility] Body Weight 2023-06-29 00:00:00 151 [lb_av] [facility] BP Systolic 2023-06-29 00:00:00 133 mm[Hg] [facility] Height 2023-06-29 00:00:00 64 [in_i] [facility] BMI (Body Mass Index) 2023-06-29 00:00:00 25.9 kg/m2 [facility] BP Diastolic 2023-06-29 00:00:00 88 mm[Hg] [facility] Systolic blood pressure 2022-11-20 19:55:00 128 mm[Hg] [facility] Diastolic blood pressure 2022-11-20 19:55:00 76 mm[Hg] [facility] Heart rate 2022-11-20 19:55:00 82 /min [facility] Body temperature 2022-11-20 19:55:00 36.67 Kiley [facility] Respiratory rate 2022-11-20 19:55:00 18 /min [facility] Body height 2022-11-20 19:55:00 162.6 cm [facility] Body weight 2022-11-20 19:55:00 72.576 kg [facility] BMI 2022-11-20 19:55:00 27.46 kg/m2 [facility] Oxygen saturation in Arterial blood by Pulse oximetry 2022-11-20 19:55:00 100 /min [facility] BP Diastolic 2022-06-22 00:00:00 82 mm[Hg] [facility] Height 2022-06-22 00:00:00 64 [in_i] [facility] BMI (Body Mass Index) 2022-06-22 00:00:00 26 kg/m2 [facility] BP Systolic 2022-06-22 00:00:00 131 mm[Hg] [facility] Body Weight 2022-06-22 00:00:00 151.4 [lb_av] [facility] BP Diastolic 2022-05-08 00:00:00 92 mm[Hg] [facility] Height 2022-05-08 00:00:00 64 [in_i] [facility] BMI (Body Mass Index) 2022-05-08 00:00:00 25.9 kg/m2 [facility] BP Systolic 2022-05-08 00:00:00 142 mm[Hg] [facility] Body Weight 2022-05-08 00:00:00 151 [lb_av] [facility] Height 2022-03-18 00:00:00 64 [in_i] [facility] BP Diastolic 2021-12-18 00:00:00 88 mm[Hg] [facility] Height 2021-12-18 00:00:00 64 [in_i] [facility] BMI (Body Mass Index) 2021-12-18 00:00:00 25.5 kg/m2 [facility] BP Systolic 2021-12-18 00:00:00 138 mm[Hg] [facility] Body Weight 2021-12-18 00:00:00 148.4 [lb_av] [facility] Height 2021-09-17 00:00:00 64 [in_i] [facility] BMI (Body Mass Index) 2021-09-17 00:00:00 23.2 kg/m2 [facility] Body Weight 2021-09-17 00:00:00 135 [lb_av] [facility] BP Diastolic 2021-09-02 00:00:00 75 mm[Hg] [facility] Height 2021-09-02 00:00:00 64 [in_i] [facility] BMI (Body Mass Index) 2021-09-02 00:00:00 23 kg/m2 [facility] BP Systolic 2021-09-02 00:00:00 119 mm[Hg] [facility] Body Weight 2021-09-02 00:00:00 134.2 [lb_av] [facility] BP Diastolic 2021-08-19 00:00:00 87 mm[Hg] [facility] Height 2021-08-19 00:00:00 64 [in_i] [facility] BMI (Body Mass Index) 2021-08-19 00:00:00 22.6 kg/m2 [facility] BP Systolic 2021-08-19 00:00:00 124 mm[Hg] [facility] Body Weight 2021-08-19 00:00:00 131.9 [lb_av] [facility] BP Diastolic 2021-04-11 00:00:00 81 mm[Hg] [facility] Height 2021-04-11 00:00:00 64 [in_i] [facility] BMI (Body Mass Index) 2021-04-11 00:00:00 21.1 kg/m2 [facility] BP Systolic 2021-04-11 00:00:00 144 mm[Hg] [facility] Body Weight 2021-04-11 00:00:00 122.9 [lb_av] [facility] Height 2021-03-24 00:00:00 64 [in_i] [facility] BMI (Body Mass Index) 2021-03-24 00:00:00 20.9 kg/m2 [facility] BP Systolic 2021-03-24 00:00:00 127 mm[Hg] [facility] Body Weight 2021-03-24 00:00:00 122 [lb_av] [facility] BP Diastolic 2021-03-24 00:00:00 83 mm[Hg] [facility] BP Diastolic 2020-09-24 00:00:00 83 mm[Hg] [facility] Height 2020-09-24 00:00:00 64 [in_i] [facility] BMI (Body Mass Index) 2020-09-24 00:00:00 22.7 kg/m2 [facility] BP Systolic 2020-09-24 00:00:00 120 mm[Hg] [facility] Body Weight 2020-09-24 00:00:00 132.4 [lb_av] [facility] BP Diastolic 2020-08-20 00:00:00 70 mm[Hg] [facility] Height 2020-08-20 00:00:00 64 [in_i] [facility] BMI (Body Mass Index) 2020-08-20 00:00:00 22.6 kg/m2 [facility] BP Systolic 2020-08-20 00:00:00 131 mm[Hg] [facility] Body Weight 2020-08-20 00:00:00 131.5 [lb_av] [facility] BP Diastolic 2020-08-05 00:00:00 80 mm[Hg] [facility] Height 2020-08-05 00:00:00 64 [in_i] [facility] BMI (Body Mass Index) 2020-08-05 00:00:00 22.3 kg/m2 [facility] BP Systolic 2020-08-05 00:00:00 130 mm[Hg] [facility] Body Weight 2020-08-05 00:00:00 130 [lb_av] [facility] BP Diastolic 2020-04-23 00:00:00 82 mm[Hg] [facility] Height 2020-04-23 00:00:00 64 [in_i] [facility] BMI (Body Mass Index) 2020-04-23 00:00:00 23 kg/m2 [facility] BP Systolic 2020-04-23 00:00:00 128 mm[Hg] [facility] Body Weight 2020-04-23 00:00:00 134 [lb_av] [facility] BP Diastolic 2020-01-02 00:00:00 73 mm[Hg] [facility] Height 2020-01-02 00:00:00 64 [in_i] [facility] BMI (Body Mass Index) 2020-01-02 00:00:00 21.8 kg/m2 [facility] BP Systolic 2020-01-02 00:00:00 114 mm[Hg] [facility] Body Weight 2020-01-02 00:00:00 127.1 [lb_av] [facility] BP Diastolic 2019-09-19 00:00:00 78 mm[Hg] [facility] Height 2019-09-19 00:00:00 64 [in_i] [facility] BMI (Body Mass Index) 2019-09-19 00:00:00 21.8 kg/m2 [facility] BP Systolic 2019-09-19 00:00:00 122 mm[Hg] [facility] Body Weight 2019-09-19 00:00:00 127.2 [lb_av] [facility] BP Diastolic 2019-08-02 00:00:00 77 mm[Hg] [facility] Height 2019-08-02 00:00:00 64 [in_i] [facility] BMI (Body Mass Index) 2019-08-02 00:00:00 22 kg/m2 [facility] BP Systolic 2019-08-02 00:00:00 116 mm[Hg] [facility] Body Weight 2019-08-02 00:00:00 128 [lb_av] [facility] BP Diastolic 2019-07-19 00:00:00 76 mm[Hg] [facility] Height 2019-07-19 00:00:00 64 [in_i] [facility] BMI (Body Mass Index) 2019-07-19 00:00:00 21.8 kg/m2 [facility] BP Systolic 2019-07-19 00:00:00 117 mm[Hg] [facility] Body Weight 2019-07-19 00:00:00 127 [lb_av] [facility] BP Diastolic 2019-07-05 00:00:00 63 mm[Hg] [facility] Height 2019-07-05 00:00:00 64 [in_i] [facility] BMI (Body Mass Index) 2019-07-05 00:00:00 21.9 kg/m2 [facility] BP Systolic 2019-07-05 00:00:00 103 mm[Hg] [facility] Body Weight 2019-07-05 00:00:00 127.5 [lb_av] [facility] BP Diastolic 2019-06-05 00:00:00 76 mm[Hg] [facility] Height 2019-06-05 00:00:00 64 [in_i] [facility] BMI (Body Mass Index) 2019-06-05 00:00:00 20.9 kg/m2 [facility] BP Systolic 2019-06-05 00:00:00 106 mm[Hg] [facility] Body Weight 2019-06-05 00:00:00 122 [lb_av] [facility] BP Diastolic 2019-05-08 00:00:00 69 mm[Hg] [facility] Height 2019-05-08 00:00:00 64 [in_i] [facility] BMI (Body Mass Index) 2019-05-08 00:00:00 20.5 kg/m2 [facility] BP Systolic 2019-05-08 00:00:00 107 mm[Hg] [facility] Body Weight 2019-05-08 00:00:00 119.4 [lb_av] [facility] BP Diastolic 2019-04-10 00:00:00 81 mm[Hg] [facility] Height 2019-04-10 00:00:00 64 [in_i] [facility] BMI (Body Mass Index) 2019-04-10 00:00:00 19.3 kg/m2 [facility] BP Systolic 2019-04-10 00:00:00 119 mm[Hg] [facility] Body Weight 2019-04-10 00:00:00 112.5 [lb_av] [facility] BP Diastolic 2019-04-04 00:00:00 85 mm[Hg] [facility] Height 2019-04-04 00:00:00 64 [in_i] [facility] BMI (Body Mass Index) 2019-04-04 00:00:00 19.4 kg/m2 [facility] BP Systolic 2019-04-04 00:00:00 132 mm[Hg] [facility] Body Weight 2019-04-04 00:00:00 113 [lb_av] [facility] BP Diastolic 2019-03-14 00:00:00 87 mm[Hg] [facility] Height 2019-03-14 00:00:00 64 [in_i] [facility] BMI (Body Mass Index) 2019-03-14 00:00:00 19.1 kg/m2 [facility] BP Systolic 2019-03-14 00:00:00 124 mm[Hg] [facility] Body Weight 2019-03-14 00:00:00 111 [lb_av] [facility] BP Diastolic 2019-02-14 00:00:00 97 mm[Hg] [facility] Height 2019-02-14 00:00:00 64 [in_i] [facility] BMI (Body Mass Index) 2019-02-14 00:00:00 20.6 kg/m2 [facility] BP Systolic 2019-02-14 00:00:00 135 mm[Hg] [facility] Body Weight 2019-02-14 00:00:00 120 [lb_av] [facility] BP Diastolic 2019-02-07 00:00:00 83 mm[Hg] [facility] Height 2019-02-07 00:00:00 64 [in_i] [facility] BMI (Body Mass Index) 2019-02-07 00:00:00 22 kg/m2 [facility] BP Systolic 2019-02-07 00:00:00 124 mm[Hg] [facility] Body Weight 2019-02-07 00:00:00 128.4 [lb_av] [facility] BP Diastolic 2019-01-26 00:00:00 84 mm[Hg] [facility] Height 2019-01-26 00:00:00 64 [in_i] [facility] BMI (Body Mass Index) 2019-01-26 00:00:00 22.4 kg/m2 [facility] BP Systolic 2019-01-26 00:00:00 128 mm[Hg] [facility] Body Weight 2019-01-26 00:00:00 130.4 [lb_av] [facility] BP Diastolic 2019-01-03 00:00:00 76 mm[Hg] [facility] Height 2019-01-03 00:00:00 64 [in_i] [facility] BMI (Body Mass Index) 2019-01-03 00:00:00 22.4 kg/m2 [facility] BP Systolic 2019-01-03 00:00:00 118 mm[Hg] [facility] Body Weight 2019-01-03 00:00:00 130.3 [lb_av] [facility] Procedures Procedure Date / Time Performed Performing Clinician Source FREE T4 2022-11-20 20:48:00 [facility] THYROID STIMULATING HORMONE 2022-11-20 20:48:00 [facility] COMP. METABOLIC PANEL (23481) 2022-11-20 20:48:00 [facility] LIPID PANEL (33582)(TOTAL CHOLESTEROL, TRIGLYCERIDES, HDL) 2022-11-20 20:48:00 [facility] CBC WITH DIFF 2022-11-20 20:48:00 [facility] GLYCOSYLATED HEMOGLOBIN (A1C) 2022-11-20 20:48:00 [facility] FREE T3 2022-11-20 20:48:00 [facility] US, transvaginal 2021-03-24 00:00:00 [facility] US, obstetric, limited 2019-08-02 00:00:00 [facility] US(FBP)W/0 NON STRESS TEST 2019-08-02 00:00:00 [facility] ULTRASOUND REPEAT 2019-07-05 00:00:00 [facility] US, obstetric, limited 2019-04-10 00:00:00 [facility] ULTRASOUND, UTERUS REAL TIME WITH IMAGE DOC, AND MATERNAL EVAL PLUS DETAILED ANATOMIC EXAMINATION, TRANSABDOMINAL APPROACH; SINGLE OR FIRST GESTATION 2019-04-10 00:00:00 [facility] US, obstetric, limited 2019-03-14 00:00:00 [facility] ULTRASOUND, UTERUS REAL TIME WITH IMAGE DOCUMENTAITON, TRANSVAGINAL 2019-02-14 00:00:00 [facility] ULTRASOUND, UTERUS REAL TIME WITH IMAGE DOCUMENTAITON, TRANSVAGINAL 2019-01-26 00:00:00 [facility] XR, hysterosalpingogram 2019-01-03 00:00:00 [facility] Cholecystectomy 2018-11-08 00:00:00 [facility] Dilation and Curettage 2014-09-08 00:00:00 [facility] Plan of Care Planned Activity Planned Date Details Comments Source Diagnostic Test Pending 2023-10-21 00:00:00 test, urine [code = test, urine] [facility] Future Appointment 2024-07-03 09:00:00 Judy Fernández, [address]; [address], [place] [address] [facility] Future Appointment 2024-01-20 09:00:00 Arun Gunter, [address]; [address], [place] [address] [facility] Instructions [facility] Encounters Start Date/Time End Date/Time Encounter Type Admission Type Attending [facility] Care Department Encounter ID Source 2024-01-11 13:30:00 2024-01-11 13:30:00 Outpatient CLARICE MACKEY OGECHUKWU [facility] [id number] [facility] 2023-11-23 09:30:00 2023-11-23 09:30:00 Outpatient CLARICE MACKEY OGECHUKWU [facility] [id number] [facility] 2023-10-21 00:00:00 2023-10-21 00:00:00 Arun Gunter MD: [address], [address], [place] [address] , Ph. [phone] [facility] [id number] [facility] 2023-10-20 00:00:00 2023-10-20 00:00:00 Outpatient Rutledge_L MMG [facility] [id number] [facility] 2023-10-20 00:00:00 2023-10-20 00:00:00 Outpatient Rutledge_L MM[facility] [id number] [facility] 2023-10-13 09:07:18 2023-10-13 09:07:18 Outpatient SFA [facility] [id number] Jose G Renteria 2023-07-22 00:00:00 2023-07-22 00:00:00 Outpatient Rutledge_L MMG [facility] [id number] [facility] 2023-07-22 00:00:00 2023-07-22 00:00:00 Outpatient Rutledge_L MMG [facility] [id number] [facility] 2023-06-29 09:08:00 2023-06-29 09:08:00 Outpatient PATRICIA MCHUGH [facility] [id number] [facility] 2023-06-29 00:00:00 2023-06-29 00:00:00 Outpatient Rutledge_L MMG [facility] [id number] [facility] 2023-06-29 00:00:00 2023-06-29 00:00:00 Patricia Thomas [facility]: [address], [address], [place] [address] , Ph. [phone] MMG [facility] [id number] [facility] 2022-11-20 15:30:00 2022-11-20 15:45:00 Energy Audit Advisor Visit 2, Adc Lab Clarice Smith [facility] [id number] [facility] 2022-11-20 14:00:00 2022-11-20 14:34:54 Outpatient R CLARICE SMITH MONICAXOCHITLEVELINA [facility] [id number] [facility] 2022-11-20 14:00:00 2022-11-20 14:34:54 Office Visit Alvin Smithozzycarina [facility] [id number] [facility] 2022-10-23 00:00:00 2022-10-23 00:00:00 Outpatient Rutledge_L MMG [facility] [id number] [facility] 2022-10-23 00:00:00 2022-10-23 00:00:00 Outpatient Rutledge_L MMG [facility] [id number] [facility] 2022-10-23 00:00:00 2022-10-23 00:00:00 Outpatient Rutledge_L MMG [facility] [id number] [facility] 2022-10-01 00:00:00 2022-10-01 00:00:00 Outpatient Rutledge_L MMG [facility] [id number] [facility] 2022-09-25 00:00:00 2022-09-25 00:00:00 Outpatient Rutledge_L MMG [facility] [id number] [facility] 2022-09-01 00:00:00 2022-09-01 00:00:00 Outpatient Rutledge_L MMG [facility] [id number] [facility] 2022-08-05 00:00:00 2022-08-05 00:00:00 Outpatient Rutledge_L MMG [facility] [id number] [facility] 2022-06-23 00:00:00 2022-06-23 00:00:00 Outpatient Rutledge_L MMG [facility] [id number] [facility] 2022-06-22 00:00:00 2022-06-22 00:00:00 Judy Fernández MD: [address] [place] [place] [address] [address], [place] [address] , Ph. [phone] Rutledge_L MM[facility] 0815 [facility] 2022-06-16 00:00:00 2022-06-16 00:00:00 Outpatient Rutledge_L MM[facility] [id number] [facility] 2022-05-08 10:22:00 2022-05-08 10:22:00 Outpatient ARUN ORNELAS [facility] [id number] [facility] 2022-05-08 00:00:00 2022-05-08 00:00:00 Arun Gunter MD: [address] [place] [address] , Ph. [phone] Rutledge_L [facility] 07 [facility] 2022-03-18 00:00:00 2022-03-18 00:00:00 Arun Gunter MD: [address] [address] , Ph. [phone] Rutledge_L [facility] 0511 [facility] 2021-12-23 09:19:00 2021-12-23 09:19:00 Outpatient Rutledge_L [facility] 214 [facility] 2021-12-18 00:00:00 2021-12-18 00:00:00 GERDA Salmeron: [address] [address] , Ph. [phone] [facility] 209 [facility] 2021-12-17 04:22:00 2021-12-17 04:22:00 Outpatient Rutledge_L [facility] 0209 [facility] 2021-10-10 05:04:00 2021-10-10 05:04:00 Outpatient FLOR YATES [id number] 1203 [facility] 2021-09-17 00:00:00 2021-09-17 00:00:00 GERDA SalmeronBC: 600 [facility] [address] [address] , Ph. [phone] Rutledge_L [facility] 1110 [facility] 2021-09-02 00:00:00 2021-09-02 00:00:00 Patricia LORENA ThomasBC: 600 [facility] [address] [address] , Ph. [phone] Rutledge_L [facility] 1026 [facility] 2021-08-27 11:50:00 2021-08-27 11:50:00 Outpatient Rutledge_L MMG [facility] 1020 [facility] 2021-08-19 14:04:00 2021-08-19 14:04:00 Outpatient PATRICIA MCHUGH [facility] [id number] [facility] 2021-08-19 00:00:00 2021-08-19 00:00:00 [facility] 600 [facility] [address] [place] [address] , Ph. [phone] Rutledge_L [facility] 1012 [facility] 2021-04-22 01:40:00 2021-04-22 01:40:00 Outpatient Rutledge_L MMG [facility] 0615 [facility] 2021-04-14 14:56:00 2021-04-14 14:56:00 Outpatient ARUN ORNELAS [facility] [id number] [facility] 2021-04-11 00:00:00 2021-04-11 00:00:00 Arun Gutner MD: 600 [facility] [address], [place] [address] , Ph. [phone] Rutledge_L [facility] 0604 [facility] 2021-03-24 00:00:00 2021-03-24 00:00:00 Arun Gunter MD: 600 [facility] [address] [place] [address] , Ph. [phone] [facility] 2020-12-02 12:46:00 2020-12-02 12:46:00 Outpatient Rutledge_L [facility]G [facility] 0125 [facility] 2020-11-27 03:56:00 2020-11-27 03:56:00 Outpatient Rutledge[facility]L [facility]G [facility] 0120 [facility] 2020-11-25 02:38:00 2020-11-25 02:38:00 Outpatient Rutledge_L [facility]G [facility]118 [facility] 2020-09-25 02:21:00 2020-09-25 02:21:00 Outpatient Rutledge_L [facility]G [facility] 111 [facility] 2020-09-24 00:00:00 2020-09-24 00:00:00 Judy Fernández MD: 600 [facility] [address] [place] [address] , Ph. [phone] Rutledge_L [facility] 1116 [facility] 2020-09-14 12:28:00 2020-09-14 12:28:00 Outpatient Rutledge_L MMG [facility]7 [facility] 2020-08-20 00:00:00 2020-08-20 00:00:00 YOLIE Roa: 600 [facility] [address] [place] [address] , Ph. [phone] Rutledge_L [facility] 1013 [facility] 2020-08-05 09:06:00 2020-08-05 09:06:00 Outpatient YARY CRUZ [facility] [id number] [facility] 2020-08-05 00:00:00 2020-08-05 00:00:00 Yary Marinelli, NP: [address] [address] , Ph. [phone] [facility] 2020-05-04 11:32:00 2020-05-04 11:32:00 Outpatient Rutledge_L MMG [facility] 626 [facility] 2020-04-23 00:00:00 2020-04-23 00:00:00 Yary Marinelli NP: [address] [address] , Ph. [phone] Rutledge_L [facility] 0616 [facility] 2020-02-12 05:07:00 2020-02-12 05:07:00 Outpatient Rutledge_L MMG [facility] 0406 [facility] 2020-01-15 10:29:00 2020-01-15 10:29:00 Outpatient Rutledge_L MMG [facility] 0309 [facility] 2020-01-05 09:41:00 2020-01-05 09:41:00 Outpatient Rutledge_L [facility]G [facility] 0228 [facility] 2020-01-04 06:57:00 2020-01-04 06:57:00 Outpatient Rutledge_L MMG [facility] 0227 [facility] 2020-01-02 00:00:00 2020-01-02 00:00:00 Judy Fernández MD: [address] [address] , Ph. [phone] Rutledge_L [facility] 0225 [facility] 2019-12-19 03:47:00 2019-12-19 03:47:00 Outpatient Rutledge_L MMG [facility] 0211 [facility] 2019-12-11 11:19:00 2019-12-11 11:19:00 Outpatient FLOR YATES [facility] [id number] 0203 [facility] 2019-11-21 15:26:00 2019-11-21 18:03:00 Emergency ER AYAZ DURAND [facility] [id number] [facility] 2019-09-19 00:00:00 2019-09-19 00:00:00 YOLIE Roa: 600 [facility] [address] [facility], [place] [address] , Ph. [phone] [facility] 1112 [facility] 2019-08-02 00:00:00 2019-08-02 00:00:00 Judy Fernández MD: 600 [facility] [address] [address] , Ph. [phone] [facility] 0925 [facility] 2019-07-19 00:00:00 2019-07-19 00:00:00 Judy Fernández MD: [address] [facility] [address], [place] [address] , Ph. [phone] [facility] 0911 [facility] 2019-07-06 09:19:00 2019-07-06 09:19:00 Outpatient JUDY MARLEY [facility] [id number] [facility] 2019-07-05 00:00:00 2019-07-05 00:00:00 Judy Fernández MD: 600 [facility] [address], [place] [address] , Ph. [phone] [facility] 0828 [facility] 2019-06-05 00:00:00 2019-06-05 00:00:00 Judy Fernández MD: [address] [facility] [address], [place] [address] , Ph. [phone] [facility] 0729 [facility] 2019-05-08 00:00:00 2019-05-08 00:00:00 Judy Fernández MD: [address] [facility], [place] [address] , Ph. [phone] [facility] 0701 [facility] 2019-04-17 13:48:00 2019-04-17 19:06:00 Emergency ER MIKE LYONS [facility] [id number] [facility] 2019-04-10 12:12:00 2019-04-10 12:12:00 Outpatient EL JUDY FERNÁNDEZ [facility] [id number] [facility] 2019-04-10 00:00:00 2019-04-10 00:00:00 Judy Fernández MD: [address] [facility], [place] [address] , Ph. [phone] [facility] 0603 [facility] 2019-04-04 00:00:00 2019-04-04 00:00:00 Bernardo Robles MD: [address] [facility], [place] [address] , Ph. [phone] [facility] General surgery 0528 [facility] 2019-03-14 12:48:00 2019-03-16 12:45:00 Inpatient ER JUDY FERNÁNDEZ [facility] [id number] [facility] 2019-03-14 00:00:00 2019-03-14 00:00:00 Judy Fernández MD: [address] [facility], [place] [address] , Ph. [phone] [facility] OBGYN 0507 [facility] 2019-02-27 20:24:00 2019-02-28 07:32:00 Emergency ER OWEN RINCON [facility] [id number] [facility] 2019-02-14 16:28:00 2019-02-16 13:00:00 Inpatient JUDY MARLEY [facility] [id number] [facility] 2019-02-14 00:00:00 2019-02-14 00:00:00 Judy Fernández MD: [address] [facility], [place] [address] , Ph. [phone] [facility] OBGY 0409 [facility] 2019-02-07 00:00:00 2019-02-07 00:00:00 Judy Fernández MD: [address] [facility], [place] [address] , Ph. [phone] [facility] OBGYN 0402 [facility] 2019-01-26 09:24:00 2019-01-26 09:24:00 Outpatient JUDY MARLEY [facility] [id number] [facility] 2019-01-26 00:00:00 2019-01-26 00:00:00 Judy Fernández MD: [address] [facility], [place] [address] , Ph. [phone] [facility] 0321 [facility] 2019-01-24 15:52:00 2019-01-24 15:52:00 Outpatient JUDY MARLEY [facility] [id number] [facility] 2019-01-03 11:55:00 2019-01-03 11:55:00 Outpatient GRETCHEN FERNÁNDEZJUDY [facility] [id number] [facility] 2019-01-03 00:00:00 2019-01-03 00:00:00 Judy Fernández MD: 600 [facility], [address], [place] [address] , Ph. [phone] [facility] [address] 0226 [facility] 2018-11-25 20:29:00 2018-11-25 20:29:00 Emergency ER EKATERINA FABIO [facility] [id number] [facility] 2018-01-20 16:27:00 2018-01-20 20:45:00 Emergency ER GRAZYNA PEDRAZA [facility] [id number] [facility] 2017-11-14 14:05:00 2017-11-14 16:35:00 Emergency ER MARY HOLLY [facility] [id number] [facility] 2016-11-09 21:51:00 2016-11-09 23:24:00 Emergency ER RAMIRO MAY [facility] [id number] [facility] 2016-06-26 10:24:00 2016-06-26 10:24:00 Outpatient JUDY MARLEY [facility] [id number] [facility] 2015-11-14 15:25:00 2015-11-14 15:25:00 Outpatient KATELYNN PATEL [facility] [id number] [facility] 2015-11-09 16:47:00 2015-11-09 17:19:00 Emergency ER GRAZYNA PEDRAZA [facility] [id number] [facility] 2015-10-16 14:20:00 2015-10-16 15:56:00 Emergency ER RAMIRO MAY [facility] [id number] [facility] 2015-05-12 12:25:00 2015-05-12 14:27:00 Emergency ER YUNG MEDEIROS [facility] [id number] [facility] 2014-12-23 15:21:00 2014-12-23 20:00:00 Emergency ER Rene Goins [facility] [id number] [facility] 2014-09-11 10:40:00 2014-09-11 10:40:00 Outpatient GRETCHEN JUDY FERNÁNDEZ [facility] [id number] [facility] 2014-09-09 14:01:00 2014-09-09 18:52:00 Emergency ER NATALIE HURD [facility] [id number] [facility] 2014-09-03 08:02:00 2014-09-03 10:15:00 Emergency ER NADINE PINTO [facility] [id number] [facility] 2014-08-06 13:02:00 2014-08-06 13:49:00 Emergency ER LALO CLEMENT [facility] [id number] [facility] 2013-03-30 12:05:00 2013-03-30 13:50:00 Emergency ER LALO CLEMENT [facility] [id number] [facility] 2013-02-01 08:56:00 2013-02-01 09:28:00 Emergency ER OWEN RINCON [facility] [id number] [facility] 2012-09-06 20:15:00 2012-09-06 22:25:00 Emergency ER OFELIAELSIE, CLEMENT [facility] [id number] [facility] 2012-05-18 22:48:00 2012-05-19 00:24:00 Emergency ER YUNG MEDEIROS [facility] [id number] [facility] 2011-12-23 07:58:00 2011-12-23 10:25:00 Emergency ER OWEN RINCON [facility] [id number] [facility] 2011-11-11 15:39:00 2011-11-13 10:42:00 Inpatient JUDY MARLEY [facility] [id number] [facility] Results Test Description Test Time Test Comments Results Result Co mments Source [facility] [id number] 10:25:00* Test Item Value Reference Range Interpretation Comme nts HCG quantitative (test code = HCG quantitative) < 0.1 0-5 [facility] HospitalUrinalysis macro (dipstick) panel - [id number] 08:30:30* Test Item Value Reference Range Interpretation Comme nts Leukocytes (test code = Leukocytes) Negative Nitrite (test code = Nitrite) negative Urobilinogen (test code = Urobilinogen) 1 Protein (test code = Protein) Negative pH (test code = pH) 6.0 Blood (test code = Blood) Negative Specific [place] (test code = Specific [place]) 1.030 Ketone (test code = Ketone) Negative Bilirubin (test code = Bilirubin) Negative Glucose (test code = Glucose) Negative Appearance (test code = Appearance) Clear Color (test code = Color) Yellow [facility], [id number] 08:25:46* Test Item Value Reference Range Interpretation Comme nts Test (test code = Test) negative [facility] [id number] 07:34:00 * Test Item Value Reference Range Interpretation Comme nts mgh - cancer history assessment result (test code = mgh - cancer history assessment result) meets criteria A [facility], [id number] 16:10:50* Test Item Value Reference Range Interpretation Comme nts Test (test code = Test) negative [facility] Group[facility]sc[facility] observation [Identifier] in Vaginal fluid by Wet [id number] 10:17:41* Test Item Value Reference Range Interpretation Comme nts Clue Cells (test code = Clue Cells) negative WBCs (test code = WBCs) negative Trichomonads (test code = Trichomonads) negative Epithelial cells (test code = Epithelial cells) normal RBCs (test code = RBCs) positive [facility], [id number] 18:02:09* Test Item Value Reference Range Interpretation Comme nts Test (test code = Test) negative [facility], [id number] 11:50:35* Test Item Value Reference Range Interpretation Comme nts Test (test code = Test) negative [facility], [id number] 15:40:27* Test Item Value Reference Range Interpretation Comme nts Test (test code = Test) negative [facility], [id number] 14:38:52* Test Item Value Reference Range Interpretation Comme nts Test (test code = Test) negative [facility], [id number] 14:38:52* Test Item Value Reference Range Interpretation Comme nts Test (test code = Test) negative [facility], [id number] 14:38:52* Test Item Value Reference Range Interpretation Comme nts Test (test code = Test) negative [facility] + TV, DNA, urine/[id number] 00:00:00* Test Item Value Reference Range Interpretation [...] to antibiotic resistance by molecular analysis)) negative [facility] + TV, DNA, urine/[id number] 00:00:00* Test Item Value Reference Range Interpretation [...] to antibiotic resistance by molecular analysis)) negative [facility] + TV, DNA, urine/[id number] 00:00:00* Test Item Value Reference Range Interpretation [...] to antibiotic resistance by molecular analysis)) negative [facility], LB + [id number] 00:00:00* Test Item Value Reference Range Interpretation Comme [facility] HPV type-detect 4.0 by real time PCR high risk subtypes only (test code = HPV type-detect 4.0 by real time PCR high risk subtypes only) not detected liquid Pap test (test code = liquid Pap test) normal [facility], LB + [id number] 00:00:00* Test Item Value Reference Range Interpretation Comme nts HPV type-detect 4.0 by real time PCR high risk subtypes only (test code = HPV type-detect 4.0 by real time PCR high risk subtypes only) not detected liquid Pap test (test code = liquid Pap test) normal [facility], LB + [id number] 00:00:00* Test Item Value Reference Range Interpretation Comme nts HPV type-detect 4.0 by real time PCR high risk subtypes only (test code = HPV type-detect 4.0 by real time PCR high risk subtypes only) not detected liquid Pap test (test code = liquid Pap test) normal [facility] W Auto Differential panel - [id number] 12:15:00 * Test Item Value Reference Range Interpretation Comme nts white blood count (test code = white blood count) 5.0 K/uL 4.0-11.5 red blood count (test code = red blood count) 4.15 M/uL 3.80-5.20 hemoglobin (test code = hemoglobin) 12.9 g/dL 10.5-15.7 hematocrit (test code = hematocrit) 40.9 % 34.0-50.0 MCV [Entitic volume] (test c ode = 91338-5) 98.6 fL 86-100 mean corpuscular hemoglobin (test [...] neutrophils/100 leukocytes in Blood (test code = 54700-1) 46.5 % 44.4-80.1 Immature granulocytes [#/vol ume] in Blood (test code = 48772-0) 0.0 K/uL 0.0-0.03 lymphocyte% (test code = lymphocyte%) 44.6 % 10.0-50.0 mono % (test code = mono %) 6.3 % 3.6-12.0 eos % (test code = eos %) 1.6 % 0.0-5.4 Basophils/100 leukocytes in Unspecified specimen (test code = 64591-8) 1.0 % 0.1-1.2 Band form neutrophils [#/vol ume] in Blood (test code = 87210-1) 2.34 K/uL 1.56-6.13 Lymphocytes [#/volume] in Unspecified specimen by Automated count (test code = 81891-3) 2.3 K/uL 1.18-3.74 mono # (test code = mono #) 0.32 K/uL 0.24-0.86 eos # (test code = eos #) 0.08 K/uL 0.04-0.36 basophil # (test code = baso damir #) 0.05 K/uL 0.01-0.08 NRBC% (test code = NRBC%) 0 /100 WBC 0-0.2 NRBC# (test code = NRBC#) 0 K/uL [facility] 2000 panel - Serum or [...] (test code = 6768-6) 66 U/L 35-105 [facility] W Auto Differential panel - [id number] 12:15:00 * Test Item Value Reference Range Interpretation Comme nts white blood count (test code = white blood count) 5.0 K/uL 4.0-11.5 red blood count (test code = red blood count) 4.15 M/uL 3.80-5.20 hemoglobin (test code = hemoglobin) 12.9 g/dL 10.5-15.7 hematocrit (test code = hematocrit) 40.9 % 34.0-50.0 MCV [Entitic volume] (test c ode = 79368-3) 98.6 fL 86-100 mean corpuscular hemoglobin (test [...] neutrophils/100 leukocytes in Blood (test code = 52505-5) 46.5 % 44.4-80.1 Immature granulocytes [#/vol ume] in Blood (test code = 26158-7) 0.0 K/uL 0.0-0.03 lymphocyte% (test code = lymphocyte%) 44.6 % 10.0-50.0 mono % (test code = mono %) 6.3 % 3.6-12.0 eos % (test code = eos %) 1.6 % 0.0-5.4 Basophils/100 leukocytes in Unspecified specimen (test code = 39700-7) 1.0 % 0.1-1.2 Band form neutrophils [#/vol ume] in Blood (test code = 58912-7) 2.34 K/uL 1.56-6.13 Lymphocytes [#/volume] in Unspecified specimen by Automated count (test code = 25506-3) 2.3 K/uL 1.18-3.74 mono # (test code = mono #) 0.32 K/uL 0.24-0.86 eos # (test code = eos #) 0.08 K/uL 0.04-0.36 basophil # (test code = baso damir #) 0.05 K/uL 0.01-0.08 NRBC% (test code = NRBC%) 0 /100 WBC 0-0.2 NRBC# (test code = NRBC#) 0 K/uL [facility] 2000 panel - Serum or [...] (test code = 6768-6) 66 U/L 35-105 [facility] W Auto Differential panel - [id number] 12:15:00 * Test Item Value Reference Range Interpretation Comme nts white blood count (test code = white blood count) 5.0 K/uL 4.0-11.5 red blood count (test code = red blood count) 4.15 M/uL 3.80-5.20 hemoglobin (test code = hemoglobin) 12.9 g/dL 10.5-15.7 hematocrit (test code = hematocrit) 40.9 % 34.0-50.0 MCV [Entitic volume] (test c ode = 49674-9) 98.6 fL 86-100 mean corpuscular hemoglobin (test [...] neutrophils/100 leukocytes in Blood (test code = 28522-5) 46.5 % 44.4-80.1 Immature granulocytes [#/vol ume] in Blood (test code = 14645-0) 0.0 K/uL 0.0-0.03 lymphocyte% (test code = lymphocyte%) 44.6 % 10.0-50.0 mono % (test code = mono %) 6.3 % 3.6-12.0 eos % (test code = eos %) 1.6 % 0.0-5.4 Basophils/100 leukocytes in Unspecified specimen (test code = 22856-7) 1.0 % 0.1-1.2 Band form neutrophils [#/vol ume] in Blood (test code = 58630-3) 2.34 K/uL 1.56-6.13 Lymphocytes [#/volume] in Unspecified specimen by Automated count (test code = 23233-9) 2.3 K/uL 1.18-3.74 mono # (test code = mono #) 0.32 K/uL 0.24-0.86 eos # (test code = eos #) 0.08 K/uL 0.04-0.36 basophil # (test code = baso damir #) 0.05 K/uL 0.01-0.08 NRBC% (test code = NRBC%) 0 /100 WBC 0-0.2 NRBC# (test code = NRBC#) 0 K/uL [facility]Com[facility] 2000 panel - Serum or [...] (test code = 6768-6) 66 U/L 35-105 [facility] HospitalReagin Ab [Presence] in Serum by [id number] 00:00:00* Test Item Value Reference Range Interpretation Comme nts Reagin Ab [Presence] in Seru m by RPR (test code = 45821-2) nonreactive nonreactive [facility] HospitalDifferential panel, method unspecified - [id number] 00:00:00NeutrophilsBandLymphocyteAtypical LymphMonocyteEosinophilBasophilMetamyelocyteMyelocytePromyelocyteBlastsNucleated Red Blood CellAbs Neutrophil Count (Man)Abs Lymph Count (Man)Abs Monocyte Count (Man)Abs Eosinophil Count (Man)Abs Basophil Count (Man)Platelet EstimatePlatelet MorphologyPolychromasiaMacrocytosisHypersegmented Polys [facility] HospitalThyrotropin [Units/volume] in Serum or [id number] 00:00:00* Test Item Value Reference Range Interpretation Comme nts Thyrotropin [Units/volume] i n Serum or Plasma (test code = 3016-3) 0.95 uIU/mL 0.36-3.74 [facility] HospitalThyroxine (T4) free [Mass/volume] in Serum or Plasma 2021-08-19 00:00:00* Test Item Value Reference Range Interpretation Comme nts free T4 (test code = free T4) 0.96 NG/dL 0.93-1.7 [facility] GroupHIV 1+2 Ab [Presence] in [id number] 00:00:00HIV P24 AgHIV-1/2 AbJefferson Davis Community HospitalHepatitis B virus surface Ag [Presence] in [id number] 00:00:00* Test Item Value Reference Range Interpretation Comme nts .hepatitis B surface antigen (test code = .hepatitis B surface antigen) negative negative [facility] HospitalReagin Ab [Presence] in Serum by [id number] 00:00:00* Test Item Value Reference Range Interpretation Comme nts Reagin Ab [Presence] in Seru m by RPR (test code = 32203-1) nonreactive nonreactive [facility] HospitalDifferential panel, method unspecified - [id number] 00:00:00NeutrophilsBandLymphocyteAtypical LymphMonocyteEosinophilBasophilMetamyelocyteMyelocytePromyelocyteBlastsNucleated Red Blood CellAbs Neutrophil Count (Man)Abs Lymph Count (Man)Abs Monocyte Count (Man)Abs Eosinophil Count (Man)Abs Basophil Count (Man)Platelet EstimatePlatelet MorphologyPolychromasiaMacrocytosisHypersegmented Polys [facility] HospitalThyrotropin [Units/volume] in Serum or [id number] 00:00:00* Test Item Value Reference Range Interpretation Comme nts Thyrotropin [Units/volume] i n Serum or Plasma (test code = 3016-3) 0.95 uIU/mL 0.36-3.74 [facility] HospitalThyroxine (T4) free [Mass/volume] in Serum or Plasma 2021-08-19 00:00:00* Test Item Value Reference Range Interpretation Comme nts free T4 (test code = free T4) 0.96 NG/dL 0.93-1.7 [facility] HospitalHIV 1+2 Ab [Presence] in [id number] 00:00:00HIV P24 AgHIV-1/2 AbJefferson Davis Community HospitalHepatitis B virus surface Ag [Presence] in [id number] 00:00:00* Test Item Value Reference Range Interpretation Comme nts .hepatitis B surface antigen (test code = .hepatitis B surface antigen) negative negative [facility] HospitalReagin Ab [Presence] in Serum by [id number] 00:00:00* Test Item Value Reference Range Interpretation Comme nts Reagin Ab [Presence] in Seru m by RPR (test code = 56431-2) nonreactive nonreactive [facility] HospitalDifferential panel, method unspecified - [id number] 00:00:00NeutrophilsBandLymphocyteAtypical LymphMonocyteEosinophilBasophilMetamyelocyteMyelocytePromyelocyteBlastsNucleated Red Blood CellAbs Neutrophil Count (Man)Abs Lymph Count (Man)Abs Monocyte Count (Man)Abs Eosinophil Count (Man)Abs Basophil Count (Man)Platelet EstimatePlatelet MorphologyPolychromasiaMacrocytosisHypersegmented Polys [facility] HospitalThyrotropin [Units/volume] in Serum or [id number] 00:00:00* Test Item Value Reference Range Interpretation Comme nts Thyrotropin [Units/volume] i n Serum or Plasma (test code = 3016-3) 0.95 uIU/mL 0.36-3.74 [facility] HospitalThyroxine (T4) free [Mass/volume] in Serum or Plasma 2021-08-19 00:00:00* Test Item Value Reference Range Interpretation Comme nts free T4 (test code = free T4) 0.96 NG/dL 0.93-1.7 [facility] HospitalHIV 1+2 Ab [Presence] in [id number] 00:00:00HIV P24 AgHIV-1/2 AbMataNorthwest Mississippi Medical CenterHepatitis B virus surface Ag [Presence] in [id number] 00:00:00* Test Item Value Reference Range Interpretation Comme nts .hepatitis B surface antigen (test code = .hepatitis B surface antigen) negative negative [facility] HospitalUrinalysis macro (dipstick) panel - [id number] 16:06:55* Test Item Value Reference Range Interpretation Comme nts Leukocytes (test code = Leukocytes) Negative Nitrite (test code = Nitrite) negative Urobilinogen (test code = Urobilinogen) .2 Protein (test code = Protein) Negative pH (test code = pH) 7.0 Blood (test code = Blood) Non-Hemolyzed: Trace Specific Alton (test code = Specific Alton) 1.020 Ketone (test code = Ketone) Negative Bilirubin (test code = Bilirubin) Negative Glucose (test code = Glucose) Negative Appearance (test code = Appearance) Clear Color (test code = Color) Yellow [facility] Grouppregnancy test, [id number] 16:22:27* Test Item Value Reference Range Interpretation Comme nts Test (test code = Test) negative [facility], [id number] 16:22:27* Test Item Value Reference Range Interpretation Comme nts Test (test code = Test) negative [facility] GroupUrinalysis macro (dipstick) panel - [id number] 16:22:10* Test Item Value Reference Range Interpretation Comme nts Leukocytes (test code = Leukocytes) Negative Nitrite (test code = Nitrite) negative Urobilinogen (test code = Urobilinogen) .2 Protein (test code = Protein) Negative pH (test code = pH) 7.0 Blood (test code = Blood) Negative Specific Alton (test code = Specific Alton) 1.025 Ketone (test code = Ketone) Negative Bilirubin (test code = Bilirubin) Negative Glucose (test code = Glucose) Negative Appearance (test code = Appearance) Clear Color (test code = Color) Yellow [facility] GroupUrinalysis macro (dipstick) panel - [id number] 16:22:10* Test Item Value Reference Range Interpretation Comme nts Leukocytes (test code = Leukocytes) Negative Nitrite (test code = Nitrite) negative Urobilinogen (test code = Urobilinogen) .2 Protein (test code = Protein) Negative pH (test code = pH) 7.0 Blood (test code = Blood) Negative Specific Alton (test code = Specific Alton) 1.025 Ketone (test code = Ketone) Negative Bilirubin (test code = Bilirubin) Negative Glucose (test code = Glucose) Negative Appearance (test code = Appearance) Clear Color (test code = Color) Yellow [facility] GroupReagin Ab [Presence] in Serum by [id number] 06:56:00* Test Item Value Reference Range Interpretation Comme nts Reagin Ab [Presence] in Seru m by RPR (test code = 64071-8) nonreactive nonreactive [facility] GroupHIV 1+2 Ab [Presence] in [id number] 06:56:00HIV P24 AgHIV-1/2 AbMatagorda Medical GroupHepatitis B virus surface Ag [Presence] in [id number] 06:56:00* Test Item Value Reference Range Interpretation Comme nts .hepatitis B surface antigen (test code = .hepatitis B surface antigen) negative negative [facility] GroupHepatitis C virus RNA [Units/volume] (viral load) in Serum or Plasma by Probe with signal [id number] 06:56:00* Test Item Value Reference Range Interpretation Comme nts hepatitis C RNA CHICO,qual (te st code = hepatitis C RNA CHICO,qual) negative negative [facility] Grouppregnancy test, [id number] 11:12:00* Test Item Value Reference Range Interpretation Comme nts Test (test code = Test) negative [facility] GroupFetal Biophysical profile panel [id number] 09:13:00* Test Item Value Reference Range Interpretation Comme nts Amniotic Fluid Index (test c ode = Amniotic Fluid Index) 2 Tone (test code = Tone) 2 Breathing (test code = Breathing) 2 Movement (test code = Movement) 2 [facility] GroupFetal Biophysical profile panel [id number] 09:13:00* Test Item Value Reference Range Interpretation Comme nts Amniotic Fluid Index (test c ode = Amniotic Fluid Index) 2 Tone (test code = Tone) 2 Breathing (test code = Breathing) 2 Movement (test code = Movement) 2 [facility] GroupFetal Biophysical profile panel [id number] 09:13:00* Test Item Value Reference Range Interpretation Comme nts Amniotic Fluid Index (test c ode = Amniotic Fluid Index) 2 Tone (test code = Tone) 2 Breathing (test code = Breathing) 2 Movement (test code = Movement) 2 [facility] GroupUrinalysis macro (dipstick) panel - [id number] 09:21:00* Test Item Value Reference Range Interpretation Comme nts Leukocytes (test code = Leukocytes) Trace Nitrite (test code = Nitrite) negative Urobilinogen (test code = Urobilinogen) .2 Protein (test code = Protein) Negative pH (test code = pH) 7.0 Blood (test code = Blood) Negative Specific Alton (test code = Specific Alton) 1.020 Ketone (test code = Ketone) Negative Bilirubin (test code = Bilirubin) Negative Glucose (test code = Glucose) Negative Appearance (test code = Appearance) Clear Color (test code = Color) Dark Yellow [facility] HospitalUrinalysis macro (dipstick) panel - [id number] 11:07:00* Test Item Value Reference Range Interpretation Comme nts Leukocytes (test code = Leukocytes) Negative Nitrite (test code = Nitrite) negative Urobilinogen (test code = Urobilinogen) 1 Protein (test code = Protein) Negative pH (test code = pH) 7.0 Blood (test code = Blood) Negative Specific Alton (test code = Specific Alton) 1.020 Ketone (test code = Ketone) Negative Bilirubin (test code = Bilirubin) Negative Glucose (test code = Glucose) Negative Appearance (test code = Appearance) Clear Color (test code = Color) Yellow [facility] GroupCandida sp DNA [Presence] in Vaginal fluid by Probe and target amplification [id number] 00:00:00* Test Item Value Reference Range Interpretation [...] luis m glabrata by real-time PCR) negative [facility] GroupCandida sp DNA [Presence] in Vaginal fluid by Probe and target amplification [id number] 00:00:00* Test Item Value Reference Range Interpretation [...] luis m glabrata by real-time PCR) negative [facility] GroupCandida sp DNA [Presence] in Vaginal fluid by Probe and target amplification [id number] 00:00:00* Test Item Value Reference Range Interpretation [...] luis m glabrata by real-time PCR) negative [facility] GroupCol[facility] count [#/volume] in [id number] 00:00:00* Test Item Value Reference Range Interpretation [...] = pseudomonas aeruginosa by real-time PCR) negative [facility] Groupbacterial vaginosis panel, [id number] 00:00:00* Test Item Value Reference Range Interpretation [...] panel) by real time PCR) see comment [facility] HospitalColony count [#/volume] in [id number] 00:00:00* Test Item Value Reference Range Interpretation [...] = pseudomonas aeruginosa by real-time PCR) negative [facility] Hospitalbacterial vaginosis panel, [id number] 00:00:00* Test Item Value Reference Range Interpretation [...] panel) by real time PCR) see comment [facility] HospitalColony count [#/volume] in [id number] 00:00:00* Test Item Value Reference Range Interpretation [...] real-time PCR) negative klebsiella species by real-t dnenis PCR (reflex to speciation by pyrosequencing) (test code = klebsiella species by real-time PCR (reflex to speciation by pyrosequencing)) negative pseudomonas aeruginosa by re al-time PCR (test code = pseudomonas aeruginosa by real-time PCR) negative [facility] Hospitalbacterial vaginosis panel, [id number] 00:00:00* Test Item Value Reference Range Interpretation [...] panel) by real time PCR) see comment [facility] GroupSurgical pathology [id number] 09:45:00Results [facility] GroupSurgical pathology [id number] 09:45:00Results [facility] GroupSurgical pathology [id number] 09:45:00Results [facility] GroupCBC W Auto Differential panel - [id number] 04:12:00 * Test Item Value Reference Range Interpretation Comme nts white blood count (test code = white blood count) 7.2 K/uL 4.0-11.5 red blood count (test code = red blood count) 3.69 M/uL 3.80-5.20 L Hemoglobin [Mass/volume] in Blood (test code = 718-7) 11.5 g/dL 10.5-15.7 hematocrit (test code = hematocrit) 35.0 % 34.0-50.0 Erythrocyte mean corpuscular volume [Entitic volume] (test code = 59436-6) 94.8 fL 78-98 Erythrocyte mean corpuscular hemoglobin [Entitic mass] (test code = 45023-8) 31.3 pg 26.2-33.4 mean corpuscular HGB conc (t est code = mean corpuscular HGB conc) 33.0 g/dL 31.5-36.2 red cell distribution width (test code = red cell distribution width) 11.3 % 11.5-15.5 L Platelets [#/volume] in Bloo d (test code = 06984-2) 221 K/uL 137-338 Platelet mean volume [Entiti c volume] in Blood (test code = 09203-3) 8.5 fL 8.4-11.8 Neutrophils.band form/100 leukocytes in Blood (test code = 48572-1) 95.1 % 44.4-80.1 Lymphocytes/100 leukocytes i n Body fluid (test code = 70579-4) 4.0 % 10.0-50.0 L Monocytes/100 leukocytes in Blood by Automated count (test code = 5905-5) 0.6 % 3.6-12.04 L Eosinophils/100 leukocytes i n Blood by Automated count (test code = 713-8) 0.1 % 0.0-5.41 Basophils/100 leukocytes in Unspecified specimen (test code = 61498-9) 0.2 % 0.0-0.79 [facility] Hospitaldifferential panel, [id number] 04:12:00 NeutrophilsBandLymphocyteAtypical LymphMonocyteEosinophilBasophilPlatelet EstimatePlatelet MorphologyTarget CellsToxic GranulationToxic Vacuolation [facility] W Auto Differential panel - [id number] 04:12:00 * Test Item Value Reference Range Interpretation Comme nts white blood count (test code = white blood count) 7.2 K/uL 4.0-11.5 red blood count (test code = red blood count) 3.69 M/uL 3.80-5.20 L Hemoglobin [Mass/volume] in Blood (test code = 718-7) 11.5 g/dL 10.5-15.7 hematocrit (test code = hematocrit) 35.0 % 34.0-50.0 Erythrocyte mean corpuscular volume [Entitic volume] (test code = 12555-4) 94.8 fL 78-98 Erythrocyte mean corpuscular hemoglobin [Entitic mass] (test code = 03903-1) 31.3 pg 26.2-33.4 mean corpuscular HGB conc (t est code = mean corpuscular HGB conc) 33.0 g/dL 31.5-36.2 red cell distribution width (test code = red cell distribution width) 11.3 % 11.5-15.5 L Platelets [#/volume] in Bloo d (test code = 81174-4) 221 K/uL 137-338 Platelet mean volume [Entiti c volume] in Blood (test code = 91335-0) 8.5 fL 8.4-11.8 Neutrophils.band form/100 leukocytes in Blood (test code = 62853-4) 95.1 % 44.4-80.1 Lymphocytes/100 leukocytes i n Body fluid (test code = 70587-3) 4.0 % 10.0-50.0 L Monocytes/100 leukocytes in Blood by Automated count (test code = 5905-5) 0.6 % 3.6-12.04 L Eosinophils/100 leukocytes i n Blood by Automated count (test code = 713-8) 0.1 % 0.0-5.41 Basophils/100 leukocytes in Unspecified specimen (test code = 27979-1) 0.2 % 0.0-0.79 [facility] Hospitaldifferential panel, [id number] 04:12:00 NeutrophilsBandLymphocyteAtypical LymphMonocyteEosinophilBasophilPlatelet EstimatePlatelet MorphologyTarget CellsToxic GranulationToxic Vacuolation [facility] W Auto Differential panel - [id number] 04:12:00 * Test Item Value Reference Range Interpretation Comme nts white blood count (test code = white blood count) 7.2 K/uL 4.0-11.5 red blood count (test code = red blood count) 3.69 M/uL 3.80-5.20 L Hemoglobin [Mass/volume] in Blood (test code = 718-7) 11.5 g/dL 10.5-15.7 hematocrit (test code = hematocrit) 35.0 % 34.0-50.0 Erythrocyte mean corpuscular volume [Entitic volume] (test code = 66172-9) 94.8 fL 78-98 Erythrocyte mean corpuscular hemoglobin [Entitic mass] (test code = 70958-4) 31.3 pg 26.2-33.4 mean corpuscular HGB conc (t est code = mean corpuscular HGB conc) 33.0 g/dL 31.5-36.2 red cell distribution width (test code = red cell distribution width) 11.3 % 11.5-15.5 L Platelets [#/volume] in Bloo d (test code = 87951-4) 221 K/uL 137-338 Platelet mean volume [Entiti c volume] in Blood (test code = 75716-5) 8.5 fL 8.4-11.8 Neutrophils.band form/100 leukocytes in Blood (test code = 02279-3) 95.1 % 44.4-80.1 Lymphocytes/100 leukocytes i n Body fluid (test code = 00346-5) 4.0 % 10.0-50.0 L Monocytes/100 leukocytes in Blood by Automated count (test code = 5905-5) 0.6 % 3.6-12.04 L Eosinophils/100 leukocytes i n Blood by Automated count (test code = 713-8) 0.1 % 0.0-5.41 Basophils/100 leukocytes in Unspecified specimen (test code = 21819-0) 0.2 % 0.0-0.79 [facility]different[facility] panel, [id number] 04:12:00 NeutrophilsBandLymphocyteAtypical LymphMonocyteEosinophilBasophilPlatelet EstimatePlatelet MorphologyTarget CellsToxic GranulationToxic Vacuolation [facility] HospitalCB W Auto Differential panel - [id number] 03:30:00 * Test Item Value Reference Range [...] corpuscular volume [Entitic volume] (test code = 66233-0) 95.8 fL 78-98 Erythrocyte mean corpuscular hemoglobin [Entitic mass] (test code = 44565-5) 31.2 pg 26.2-33.4 mean corpuscular HGB conc (t est code = mean corpuscular HGB conc) 32.6 g/dL 31.5-36.2 red cell distribution width (test code = red cell distribution width) 11.2 % 11.5-15.5 L Platelets [#/volume] in Bloo d (test code = 07785-5) 184 K/uL 137-338 Platelet mean volume [Entiti c volume] in Blood (test code = 69723-2) 8.4 fL 8.4-11.8 Neutrophils.band form/100 leukocytes in Blood (test code = 69637-4) 59.6 % 44.4-80.1 Lymphocytes/100 leukocytes i n Body fluid (test code = 58488-4) 31.9 % 10.0-50.0 Monocytes/100 leukocytes in Blood by Automated count (test code = 5905-5) 5.9 % 3.6-12.04 Eosinophils/100 leukocytes i n Blood by Automated count (test code = 713-8) 1.0 % 0.0-5.41 Basophils/100 leukocytes in Unspecified specimen (test code = 37702-0) 1.5 % 0.0-0.79 H [facility] Hospitaldifferent[facility] panel, [id number] 03:30:00 NeutrophilsLymphocyteMonocytePlatelet EstimatePlatelet MorphologyMaWhitfield Medical Surgical HospitalComprehensive metabolic 2000 panel - Serum or [id number] 03:30:00* Test Item Value Reference Range Interpretation [...] (test code = 6768-6) 52 U/L 35-105 [facility] W Auto Differential panel - [id number] 03:30:00 * Test Item Value Reference Range [...] corpuscular volume [Entitic volume] (test code = 76122-9) 95.8 fL 78-98 Erythrocyte mean corpuscular hemoglobin [Entitic mass] (test code = 35814-7) 31.2 pg 26.2-33.4 mean corpuscular HGB conc (t est code = mean corpuscular HGB conc) 32.6 g/dL 31.5-36.2 red cell distribution width (test code = red cell distribution width) 11.2 % 11.5-15.5 L Platelets [#/volume] in Bloo d (test code = 25321-5) 184 K/uL 137-338 Platelet mean volume [Entiti c volume] in Blood (test code = 34527-6) 8.4 fL 8.4-11.8 Neutrophils.band form/100 leukocytes in Blood (test code = 42580-6) 59.6 % 44.4-80.1 Lymphocytes/100 leukocytes i n Body fluid (test code = 63610-2) 31.9 % 10.0-50.0 Monocytes/100 leukocytes in Blood by Automated count (test code = 5905-5) 5.9 % 3.6-12.04 Eosinophils/100 leukocytes i n Blood by Automated count (test code = 713-8) 1.0 % 0.0-5.41 Basophils/100 leukocytes in Unspecified specimen (test code = 86820-2) 1.5 % 0.0-0.79 H [facility] Hospitaldifferent[facility] panel, [id number] 03:30:00 NeutrophilsLymphocyteMonocytePlatelet EstimatePlatelet MorphologyMaWhitfield Medical Surgical HospitalComprehensive metabolic 2000 panel - Serum or [id number] 03:30:00* Test Item Value Reference Range Interpretation [...] (test code = 6768-6) 52 U/L 35-105 [facility] W Auto Differential panel - [id number] 03:30:00 * Test Item Value Reference Range [...] corpuscular volume [Entitic volume] (test code = 87640-9) 95.8 fL 78-98 Erythrocyte mean corpuscular hemoglobin [Entitic mass] (test code = 22444-5) 31.2 pg 26.2-33.4 mean corpuscular HGB conc (t est code = mean corpuscular HGB conc) 32.6 g/dL 31.5-36.2 red cell distribution width (test code = red cell distribution width) 11.2 % 11.5-15.5 L Platelets [#/volume] in Bloo d (test code = 75434-8) 184 K/uL 137-338 Platelet mean volume [Entiti c volume] in Blood (test code = 36090-1) 8.4 fL 8.4-11.8 Neutrophils.band form/100 leukocytes in Blood (test code = 08872-4) 59.6 % 44.4-80.1 Lymphocytes/100 leukocytes i n Body fluid (test code = 34901-6) 31.9 % 10.0-50.0 Monocytes/100 leukocytes in Blood by Automated count (test code = 5905-5) 5.9 % 3.6-12.04 Eosinophils/100 leukocytes i n Blood by Automated count (test code = 713-8) 1.0 % 0.0-5.41 Basophils/100 leukocytes in Unspecified specimen (test code = 01244-9) 1.5 % 0.0-0.79 H [facility] Hospitaldifferential panel, [id number] 03:30:00 NeutrophilsLymphocyteMonocytePlatelet EstimatePlatelet MorphologyMaWhitfield Medical Surgical HospitalComprehensive metabolic 2000 panel - Serum or [id number] 03:30:00* Test Item Value Reference Range Interpretation [...] (test code = 6768-6) 52 U/L 35-105 [facility] W Auto Differential panel - [id number] 12:57:00 * Test Item Value Reference Range Interpretation Comme nts white blood count (test code = white blood count) 4.5 K/uL 4.0-11.5 red blood count (test code = red blood count) 4.04 M/uL 3.80-5.20 Hemoglobin [Mass/volume] in Blood (test code = 718-7) 12.7 g/dL 10.5-15.7 hematocrit (test code = hematocrit) 38.3 % 34.0-50.0 Erythrocyte mean corpuscular volume [Entitic volume] (test code = 03777-7) 94.8 fL 78-98 Erythrocyte mean corpuscular hemoglobin [Entitic mass] (test code = 43759-3) 31.5 pg 26.2-33.4 mean corpuscular HGB conc (t est code = mean corpuscular HGB conc) 33.2 g/dL 31.5-36.2 red cell distribution width (test code = red cell distribution width) 11.2 % 11.5-15.5 L Platelets [#/volume] in Bloo d (test code = 99903-1) 261 K/uL 137-338 Platelet mean volume [Entiti c volume] in Blood (test code = 20044-7) 9.0 fL 8.4-11.8 Neutrophils.band form/100 leukocytes in Blood (test code = 84246-1) 67.1 % 44.4-80.1 Lymphocytes/100 leukocytes i n Body fluid (test code = 71335-2) 24.5 % 10.0-50.0 Monocytes/100 leukocytes in Blood by Automated count (test code = 5905-5) 6.1 % 3.6-12.04 Eosinophils/100 leukocytes i n Blood by Automated count (test code = 713-8) 0.4 % 0.0-5.41 Basophils/100 leukocytes in Unspecified specimen (test code = 73844-6) 1.9 % 0.0-0.79 [facility]different[facility], [id number] 12:57:00 NeutrophilsLymphocyteMonocytePlatelet EstimatePlatelet MorphologyJefferson Davis Community HospitalComprehensive metabolic 2000 panel - Serum or [id number] 12:57:00* Test Item Value Reference Range Interpretation [...] (test code = 6768-6) 71 U/L 35-105 [facility] HospitalCB W Auto Differential panel - [id number] 12:57:00 * Test Item Value Reference Range Interpretation Comme nts white blood count (test code = white blood count) 4.5 K/uL 4.0-11.5 red blood count (test code = red blood count) 4.04 M/uL 3.80-5.20 Hemoglobin [Mass/volume] in Blood (test code = 718-7) 12.7 g/dL 10.5-15.7 hematocrit (test code = hematocrit) 38.3 % 34.0-50.0 Erythrocyte mean corpuscular volume [Entitic volume] (test code = 52075-5) 94.8 fL 78-98 Erythrocyte mean corpuscular hemoglobin [Entitic mass] (test code = 56208-1) 31.5 pg 26.2-33.4 mean corpuscular HGB conc (t est code = mean corpuscular HGB conc) 33.2 g/dL 31.5-36.2 red cell distribution width (test code = red cell distribution width) 11.2 % 11.5-15.5 L Platelets [#/volume] in Bloo d (test code = 34181-9) 261 K/uL 137-338 Platelet mean volume [Entiti c volume] in Blood (test code = 13082-0) 9.0 fL 8.4-11.8 Neutrophils.band form/100 leukocytes in Blood (test code = 13116-0) 67.1 % 44.4-80.1 Lymphocytes/100 leukocytes i n Body fluid (test code = 48236-9) 24.5 % 10.0-50.0 Monocytes/100 leukocytes in Blood by Automated count (test code = 5905-5) 6.1 % 3.6-12.04 Eosinophils/100 leukocytes i n Blood by Automated count (test code = 713-8) 0.4 % 0.0-5.41 Basophils/100 leukocytes in Unspecified specimen (test code = 47175-8) 1.9 % 0.0-0.79 H [facility] Hospitaldifferent[facility] panel, [id number] 12:57:00 NeutrophilsLymphocyteMonocytePlatelet EstimatePlatelet MorphologyMaWhitfield Medical Surgical HospitalComprehensive metabolic 2000 panel - Serum or [id number] 12:57:00* Test Item Value Reference Range Interpretation [...] (test code = 6768-6) 71 U/L 35-105 [facility] HospitalCBC W Auto Differential panel - [id number] 12:57:00 * Test Item Value Reference Range Interpretation Comme nts white blood count (test code = white blood count) 4.5 K/uL 4.0-11.5 red blood count (test code = red blood count) 4.04 M/uL 3.80-5.20 Hemoglobin [Mass/volume] in Blood (test code = 718-7) 12.7 g/dL 10.5-15.7 hematocrit (test code = hematocrit) 38.3 % 34.0-50.0 Erythrocyte mean corpuscular volume [Entitic volume] (test code = 66504-9) 94.8 fL 78-98 Erythrocyte mean corpuscular hemoglobin [Entitic mass] (test code = 11827-4) 31.5 pg 26.2-33.4 mean corpuscular HGB conc (t est code = mean corpuscular HGB conc) 33.2 g/dL 31.5-36.2 red cell distribution width (test code = red cell distribution width) 11.2 % 11.5-15.5 L Platelets [#/volume] in Bloo d (test code = 76737-1) 261 K/uL 137-338 Platelet mean volume [Entiti c volume] in Blood (test code = 93269-3) 9.0 fL 8.4-11.8 Neutrophils.band form/100 leukocytes in Blood (test code = 99762-7) 67.1 % 44.4-80.1 Lymphocytes/100 leukocytes i n Body fluid (test code = 40965-0) 24.5 % 10.0-50.0 Monocytes/100 leukocytes in Blood by Automated count (test code = 5905-5) 6.1 % 3.6-12.04 Eosinophils/100 leukocytes i n Blood by Automated count (test code = 713-8) 0.4 % 0.0-5.41 Basophils/100 leukocytes in Unspecified specimen (test code = 22898-1) 1.9 % 0.0-0.79 H [facility]different[facility], [id number] 12:57:00 NeutrophilsLymphocyteMonocytePlatelet EstimatePlatelet MorphologyMaWhitfield Medical Surgical HospitalComprehensive metabolic 2000 panel - Serum or [id number] 12:57:00* Test Item Value Reference Range Interpretation [...] (test code = 6768-6) 71 U/L 35-105 [facility] GroupUrinalysis macro (dipstick) panel - [id number] 12:22:43* Test Item Value Reference Range Interpretation Comme [facility] Leukocytes (test code = Leukocytes) Trace Nitrite (test code = Nitrite) positive Urobilinogen (test code = Urobilinogen) 8 Protein (test code = Protein) 100 pH (test code = pH) 6.0 Blood (test code = Blood) Negative Specific Alton (test code = Specific Alton) 1.020 Ketone (test code = Ketone) Large (80) Bilirubin (test code = Bilirubin) Large Glucose (test code = Glucose) Negative Appearance (test code = Appearance) Clear Color (test code = Color) Dark Yellow [facility] HospitalUrinalysis macro (dipstick) panel - [id number] 12:22:43* Test Item Value Reference Range Interpretation Comme nts Leukocytes (test code = Leukocytes) Trace Nitrite (test code = Nitrite) positive Urobilinogen (test code = Urobilinogen) 8 Protein (test code = Protein) 100 pH (test code = pH) 6.0 Blood (test code = Blood) Negative Specific Alton (test code = Specific Alton) 1.020 Ketone (test code = Ketone) Large (80) Bilirubin (test code = Bilirubin) Large Glucose (test code = Glucose) Negative Appearance (test code = Appearance) Clear Color (test code = Color) Dark Yellow [facility] HospitalUrinalysis macro (dipstick) panel - [id number] 12:22:43* Test Item Value Reference Range Interpretation Comme nts Leukocytes (test code = Leukocytes) Trace Nitrite (test code = Nitrite) positive Urobilinogen (test code = Urobilinogen) 8 Protein (test code = Protein) 100 pH (test code = pH) 6.0 Blood (test code = Blood) Negative Specific Alton (test code = Specific Alton) 1.020 Ketone (test code = Ketone) Large (80) Bilirubin (test code = Bilirubin) Large Glucose (test code = Glucose) Negative Appearance (test code = Appearance) Clear Color (test code = Color) Dark Yellow [facility] HospitalUrinalysis macro (dipstick) panel - [id number] 12:22:43* Test Item Value Reference Range Interpretation Comme nts Leukocytes (test code = Leukocytes) Trace Nitrite (test code = Nitrite) positive Urobilinogen (test code = Urobilinogen) 8 Protein (test code = Protein) 100 pH (test code = pH) 6.0 Blood (test code = Blood) Negative Specific Alton (test code = Specific Alton) 1.020 Ketone (test code = Ketone) Large (80) Bilirubin (test code = Bilirubin) Large Glucose (test code = Glucose) Negative Appearance (test code = Appearance) Clear Color (test code = Color) Dark Yellow [facility] HospitalUrinalysis macro (dipstick) panel - [id number] 12:22:43* Test Item Value Reference Range Interpretation Comme nts Leukocytes (test code = Leukocytes) Trace Nitrite (test code = Nitrite) positive Urobilinogen (test code = Urobilinogen) 8 Protein (test code = Protein) 100 pH (test code = pH) 6.0 Blood (test code = Blood) Negative Specific Alton (test code = Specific Alton) 1.020 Ketone (test code = Ketone) Large (80) Bilirubin (test code = Bilirubin) Large Glucose (test code = Glucose) Negative Appearance (test code = Appearance) Clear Color (test code = Color) Dark Yellow [facility] HospitalHemoglobin and Hematocrit panel - [id number] 06:06:00* Test Item Value Reference Range Interpretation Comme nts Hemoglobin [Mass/volume] in Blood (test code = 718-7) 13.1 g/dL 10.5-15.7 hematocrit (test code = hematocrit) 39.2 % 34.0-50.0 [facility] HospitalComprehensive metabolic 2000 panel - Serum or [...] (test code = 6768-6) 54 U/L 35-105 [facility] HospitalHemoglobin and Hematocrit panel - [id number] 06:06:00* Test Item Value Reference Range Interpretation Comme [facility] Hemoglobin [Mass/volume] in Blood (test code = 718-7) 13.1 g/dL 10.5-15.7 hematocrit (test code = hematocrit) 39.2 % 34.0-50.0 [facility] HospitalComprehensive metabolic 2000 panel - Serum or [...] (test code = 6768-6) 54 U/L 35-105 [facility] HospitalHemoglobin and Hematocrit panel - [id number] 06:06:00* Test Item Value Reference Range Interpretation Comme nts Hemoglobin [Mass/volume] in Blood (test code = 718-7) 13.1 g/dL 10.5-15.7 hematocrit (test code = hematocrit) 39.2 % 34.0-50.0 [facility] HospitalComprehensive metabolic 2000 panel - Serum or [...] (test code = 6768-6) 54 U/L 35-105 [facility] HospitalHemoglobin and Hematocrit panel - [id number] 08:02:00* Test Item Value Reference Range Interpretation Comme nts Hemoglobin [Mass/volume] in Blood (test code = 718-7) 11.9 g/dL 10.5-15.7 hematocrit (test code = hematocrit) 34.5 % 34.0-50.0 [facility] HospitalComprehensive metabolic 2000 panel - Serum or [...] (test code = 6768-6) 48 U/L 35-105 [facility] HospitalHemoglobin and Hematocrit panel - [id number] 08:02:00* Test Item Value Reference Range Interpretation Comme nts Hemoglobin [Mass/volume] in Blood (test code = 718-7) 11.9 g/dL 10.5-15.7 hematocrit (test code = hematocrit) 34.5 % 34.0-50.0 [facility] HospitalComprehensive metabolic 2000 panel - Serum or [...] (test code = 6768-6) 48 U/L 35-105 [facility] HospitalHemoglobin and Hematocrit panel - [id number] 08:02:00* Test Item Value Reference Range Interpretation Comme nts Hemoglobin [Mass/volume] in Blood (test code = 718-7) 11.9 g/dL 10.5-15.7 hematocrit (test code = hematocrit) 34.5 % 34.0-50.0 [facility] HospitalComprehensive metabolic 2000 panel - Serum or [...] (test code = 6768-6) 48 U/L 35-105 [facility] HospitalCBC W Auto Differential panel - [id number] 02:57:00 * Test Item Value Reference Range Interpretation Comme nts white blood count (test code = white blood count) 5.1 K/uL 4.0-11.5 red blood count (test code = red blood count) 4.29 M/uL 3.80-5.20 Hemoglobin [Mass/volume] in Blood (test code = 718-7) 14.0 g/dL 10.5-15.7 hematocrit (test code = hematocrit) 41.3 % 34.0-50.0 Erythrocyte mean corpuscular volume [Entitic volume] (test code = 56828-4) 96.3 fL 78-98 Erythrocyte mean corpuscular hemoglobin [Entitic mass] (test code = 52176-0) 32.6 pg 26.2-33.4 mean corpuscular HGB conc (t est code = mean corpuscular HGB conc) 33.9 g/dL 31.5-36.2 red cell distribution width (test code = red cell distribution width) 10.3 % 11.5-15.5 L Platelets [#/volume] in Bloo d (test code = 35028-6) 216 K/uL 137-338 Platelet mean volume [Entiti c volume] in Blood (test code = 81947-8) 9.2 fL 8.4-11.8 Neutrophils.band form/100 leukocytes in Blood (test code = 13968-5) 69.8 % 44.4-80.1 Lymphocytes/100 leukocytes i n Body fluid (test code = 16201-0) 22.0 % 10.0-50.0 Monocytes/100 leukocytes in Blood by Automated count (test code = 5905-5) 6.1 % 3.6-12.04 Eosinophils/100 leukocytes i n Blood by Automated count (test code = 713-8) 0.3 % 0.0-5.41 Basophils/100 leukocytes in Blood by Automated count (test code = 706-2) 1.8 % 0.0-0.79 H [facility] Hospitaldifferential panel, [id number] 02:57:00 NeutrophilsBandLymphocyteAtypical LymphMonocyteEosinophilBasophilPlatelet EstimatePlatelet MorphologyPoikilocytosisTarget CellsHypersegmented PolysRouleauToxic VacuolationSmudge CellsJeff[facility] HospitalComprehensive metabolic 2000 panel - Serum or [id number] 02:57:00* Test Item Value Reference Range Interpretation [...] (test code = 6768-6) 57 U/L 35-105 [facility] HospitalCBC W Auto Differential panel - [id number] 02:57:00 * Test Item Value Reference Range Interpretation Comme nts white blood count (test code = white blood count) 5.1 K/uL 4.0-11.5 red blood count (test code = red blood count) 4.29 M/uL 3.80-5.20 Hemoglobin [Mass/volume] in Blood (test code = 718-7) 14.0 g/dL 10.5-15.7 hematocrit (test code = hematocrit) 41.3 % 34.0-50.0 Erythrocyte mean corpuscular volume [Entitic volume] (test code = 27296-4) 96.3 fL 78-98 Erythrocyte mean corpuscular hemoglobin [Entitic mass] (test code = 13429-8) 32.6 pg 26.2-33.4 mean corpuscular HGB conc (t est code = mean corpuscular HGB conc) 33.9 g/dL 31.5-36.2 red cell distribution width (test code = red cell distribution width) 10.3 % 11.5-15.5 L Platelets [#/volume] in Bloo d (test code = 62727-7) 216 K/uL 137-338 Platelet mean volume [Entiti c volume] in Blood (test code = 47440-7) 9.2 fL 8.4-11.8 Neutrophils.band form/100 leukocytes in Blood (test code = 73026-4) 69.8 % 44.4-80.1 Lymphocytes/100 leukocytes i n Body fluid (test code = 53900-1) 22.0 % 10.0-50.0 Monocytes/100 leukocytes in Blood by Automated count (test code = 5905-5) 6.1 % 3.6-12.04 Eosinophils/100 leukocytes i n Blood by Automated count (test code = 713-8) 0.3 % 0.0-5.41 Basophils/100 leukocytes in Blood by Automated count (test code = 706-2) 1.8 % 0.0-0.79 H [facility] Hospitaldifferential panel, [id number] 02:57:00 NeutrophilsBandLymphocyteAtypical LymphMonocyteEosinophilBasophilPlatelet EstimatePlatelet MorphologyPoikilocytosisTarget CellsHypersegmented PolysRouleauToxic VacuolationSmudge CellsJeff[facility] HospitalComprehensive metabolic 2000 panel - Serum or [id number] 02:57:00* Test Item Value Reference Range Interpretation [...] (test code = 6768-6) 57 U/L 35-105 [facility] HospitalCBC W Auto Differential panel - [id number] 02:57:00 * Test Item Value Reference Range Interpretation Comme nts white blood count (test code = white blood count) 5.1 K/uL 4.0-11.5 red blood count (test code = red blood count) 4.29 M/uL 3.80-5.20 Hemoglobin [Mass/volume] in Blood (test code = 718-7) 14.0 g/dL 10.5-15.7 hematocrit (test code = hematocrit) 41.3 % 34.0-50.0 Erythrocyte mean corpuscular volume [Entitic volume] (test code = 37834-2) 96.3 fL 78-98 Erythrocyte mean corpuscular hemoglobin [Entitic mass] (test code = 54993-8) 32.6 pg 26.2-33.4 mean corpuscular HGB conc (t est code = mean corpuscular HGB conc) 33.9 g/dL 31.5-36.2 red cell distribution width (test code = red cell distribution width) 10.3 % 11.5-15.5 L Platelets [#/volume] in Bloo d (test code = 82403-4) 216 K/uL 137-338 Platelet mean volume [Entiti c volume] in Blood (test code = 45593-0) 9.2 fL 8.4-11.8 Neutrophils.band form/100 leukocytes in Blood (test code = 33542-3) 69.8 % 44.4-80.1 Lymphocytes/100 leukocytes i n Body fluid (test code = 08561-0) 22.0 % 10.0-50.0 Monocytes/100 leukocytes in Blood by Automated count (test code = 5905-5) 6.1 % 3.6-12.04 Eosinophils/100 leukocytes i n Blood by Automated count (test code = 713-8) 0.3 % 0.0-5.41 Basophils/100 leukocytes in Blood by Automated count (test code = 706-2) 1.8 % 0.0-0.79 H [facility] Hospitaldifferential panel, [id number] 02:57:00 NeutrophilsBandLymphocyteAtypical LymphMonocyteEosinophilBasophilPlatelet EstimatePlatelet MorphologyPoikilocytosisTarget CellsHypersegmented PolysRouleauToxic VacuolationSmudge CellsJeff[facility] HospitalComprehensive metabolic 2000 panel - Serum or [id number] 02:57:00* Test Item Value Reference Range Interpretation [...] (test code = 6768-6) 57 U/L 35-105 [facility] HospitalCBC W Auto Differential panel - [id number] 07:30:00 * Test Item Value Reference Range Interpretation Comme nts white blood count (test code = white blood count) 5.0 K/uL 4.0-11.5 red blood count (test code = red blood count) 3.92 M/uL 3.80-5.20 Hemoglobin [Mass/volume] in Blood (test code = 718-7) 12.9 g/dL 10.5-15.7 hematocrit (test code = hematocrit) 38.7 % 34.0-50.0 Erythrocyte mean corpuscular volume [Entitic volume] (test code = 54368-2) 98.7 fL 78-98 H Erythrocyte mean corpuscular hemoglobin [Entitic mass] (test code = 59248-8) 33.0 pg 26.2-33.4 mean corpuscular HGB conc (t est code = mean corpuscular HGB conc) 33.4 g/dL 31.5-36.2 red cell distribution width (test code = red cell distribution width) 11.3 % 11.5-15.5 L Platelets [#/volume] in Bloo d (test code = 96139-7) 207 K/uL 137-338 Platelet mean volume [Entiti c volume] in Blood (test code = 41832-4) 7.7 fL 8.4-11.8 L Neutrophils.band form/100 leukocytes in Blood (test code = 54752-6) 54.8 % 44.4-80.1 Lymphocytes/100 leukocytes i n Body fluid (test code = 47192-1) 35.5 % 10.0-50.0 Monocytes/100 leukocytes in Blood by Automated count (test code = 5905-5) 6.5 % 3.6-12.04 Eosinophils/100 leukocytes i n Blood by Automated count (test code = 713-8) 1.4 % 0.0-5.41 Basophils/100 leukocytes in Blood by Automated count (test code = 706-2) 1.7 % 0.0-0.79 H [facility] Hospitaldifferential panel, [id number] 07:30:00 NeutrophilsBandLymphocyteMonocytePlatelet EstimateMataNorthwest Mississippi Medical CenterRubella virus IgG Ab [Titer] in [id number] 07:30:00* Test Item Value Reference Range Interpretation Comme nts Rubella virus IgG Ab [Units/volume] in Serum by Immunoassay (test code = 5334-8) 106.7 [IU]/mL [facility] GroupHIV [facility]+2 Ab [Presence] in [id number] 07:30:00HIV P24 AgHIV-1/2 AbMatagorda Medical GroupABO & Rh group [Type] in [id number] 07:30:00* Test Item Value Reference Range Interpretation Comme nts Rh [Type] in Blood (test cod e = 43008-6) 4+ ABO and Rh group panel - Blo od (test code = 66965-7) Ab positive [facility] GroupBlood group antibody screen [Presence] in Serum or Plasma 2019-01-26 07:30:00* Test Item Value Reference Range Interpretation Comme nts Blood group antibody screen [Presence] in Serum or Plasma (test code = 890-4) negative [facility] GroupReagin Ab [Presence] in Serum by [id number] 07:30:00* Test Item Value Reference Range Interpretation Comme nts Reagin Ab [Presence] in Seru m by RPR (test code = 26751-6) nonreactive nonreactive [facility] GroupHepatitis B virus surface Ag [Presence] in Serum 2019-01-26 07:30:00* Test Item Value Reference Range Interpretation Comme nts .hepatitis B surface antigen (test code = .hepatitis B surface antigen) negative negative [facility] GroupBacteria identified in Urine by [id number] 07:30:00* Test Item Value Reference Range Interpretation Comme nts Bacteria identified in Urine by Culture (test code = 630-4) no growth at 48 hrs. [facility] GroupCBC W Auto Differential panel - [id number] 07:30:00 * Test Item Value Reference Range Interpretation Comme nts white blood count (test code = white blood count) 5.0 K/uL 4.0-11.5 red blood count (test code = red blood count) 3.92 M/uL 3.80-5.20 Hemoglobin [Mass/volume] in Blood (test code = 718-7) 12.9 g/dL 10.5-15.7 hematocrit (test code = hematocrit) 38.7 % 34.0-50.0 Erythrocyte mean corpuscular volume [Entitic volume] (test code = 74854-2) 98.7 fL 78-98 H Erythrocyte mean corpuscular hemoglobin [Entitic mass] (test code = 66034-0) 33.0 pg 26.2-33.4 mean corpuscular HGB conc (t est code = mean corpuscular HGB conc) 33.4 g/dL 31.5-36.2 red cell distribution width (test code = red cell distribution width) 11.3 % 11.5-15.5 L Platelets [#/volume] in Bloo d (test code = 45643-0) 207 K/uL 137-338 Platelet mean volume [Entiti c volume] in Blood (test code = 07201-1) 7.7 fL 8.4-11.8 L Neutrophils.band form/100 leukocytes in Blood (test code = 76363-6) 54.8 % 44.4-80.1 Lymphocytes/100 leukocytes i n Body fluid (test code = 31703-3) 35.5 % 10.0-50.0 Monocytes/100 leukocytes in Blood by Automated count (test code = 5905-5) 6.5 % 3.6-12.04 Eosinophils/100 leukocytes i n Blood by Automated count (test code = 713-8) 1.4 % 0.0-5.41 Basophils/100 leukocytes in Blood by Automated count (test code = 706-2) 1.7 % 0.0-0.79 H [facility] Groupdifferential panel, [id number] 07:30:00 NeutrophilsBandLymphocyteMonocytePlatelet EstimateMatagoMagnolia Regional Health CenterRubella virus IgG Ab [Titer] in [id number] 07:30:00* Test Item Value Reference Range Interpretation Comme nts Rubella virus IgG Ab [Units/volume] in Serum by Immunoassay (test code = 5334-8) 106.7 [IU]/mL [facility] HospitalHIV 1+2 Ab [Presence] in [id number] 07:30:00HIV P24 AgHIV-1/2 AbMatagoGreil Memorial Psychiatric Hospital GroupABO & Rh group [Type] in [id number] 07:30:00* Test Item Value Reference Range Interpretation Comme nts Rh [Type] in Blood (test cod e = 82573-2) 4+ ABO and Rh group panel - Blo od (test code = 88394-8) Ab positive [facility] GroupBlood group antibody screen [Presence] in Serum or Plasma 2019-01-26 07:30:00* Test Item Value Reference Range Interpretation Comme nts Blood group antibody screen [Presence] in Serum or Plasma (test code = 890-4) negative [facility] GroupReagin Ab [Presence] in Serum by [id number] 07:30:00* Test Item Value Reference Range Interpretation Comme nts Reagin Ab [Presence] in Seru m by RPR (test code = 60038-5) nonreactive nonreactive [facility] GroupHepatitis B virus surface Ag [Presence] in Serum 2019-01-26 07:30:00* Test Item Value Reference Range Interpretation Comme nts .hepatitis B surface antigen (test code = .hepatitis B surface antigen) negative negative [facility] GroupBacteria identified in Urine by [id number] 07:30:00* Test Item Value Reference Range Interpretation Comme nts Bacteria identified in Urine by Culture (test code = 630-4) no growth at 48 hrs. [facility] GroupCBC W Auto Differential panel - [id number] 07:30:00 * Test Item Value Reference Range Interpretation Comme nts white blood count (test code = white blood count) 5.0 K/uL 4.0-11.5 red blood count (test code = red blood count) 3.92 M/uL 3.80-5.20 Hemoglobin [Mass/volume] in Blood (test code = 718-7) 12.9 g/dL 10.5-15.7 hematocrit (test code = hematocrit) 38.7 % 34.0-50.0 Erythrocyte mean corpuscular volume [Entitic volume] (test code = 00653-0) 98.7 fL 78-98 H Erythrocyte mean corpuscular hemoglobin [Entitic mass] (test code = 84123-6) 33.0 pg 26.2-33.4 mean corpuscular HGB conc (t est code = mean corpuscular HGB conc) 33.4 g/dL 31.5-36.2 red cell distribution width (test code = red cell distribution width) 11.3 % 11.5-15.5 L Platelets [#/volume] in Bloo d (test code = 08981-0) 207 K/uL 137-338 Platelet mean volume [Entiti c volume] in Blood (test code = 91177-2) 7.7 fL 8.4-11.8 L Neutrophils.band form/100 leukocytes in Blood (test code = 12540-0) 54.8 % 44.4-80.1 Lymphocytes/100 leukocytes i n Body fluid (test code = 00999-1) 35.5 % 10.0-50.0 Monocytes/100 leukocytes in Blood by Automated count (test code = 5905-5) 6.5 % 3.6-12.04 Eosinophils/100 leukocytes i n Blood by Automated count (test code = 713-8) 1.4 % 0.0-5.41 Basophils/100 leukocytes in Blood by Automated count (test code = 706-2) 1.7 % 0.0-0.79 H [facility] Groupdifferential panel, [id number] 07:30:00 NeutrophilsBandLymphocyteMonocytePlatelet EstimateMatagorda Medical GroupRubella virus Ab [Titer] in [id number] 07:30:00* Test Item Value Reference Range Interpretation Comme nts Rubella virus IgG Ab [Units/volume] in Serum by Immunoassay (test code = 5334-8) 106.7 [IU]/mL [facility] GroupHIV 1+2 Ab [Presence] in [id number] 07:30:00HIV P24 AgHIV-1/2 AbMatagorda Medical GroupABO & Rh group [Type] in [id number] 07:30:00* Test Item Value Reference Range Interpretation Comme nts Rh [Type] in Blood (test cod e = 55660-9) 4+ ABO and Rh group panel - Blo od (test code = 73657-3) Ab positive [facility] GroupBlood group antibody screen [Presence] in Serum or Plasma 2019-01-26 07:30:00* Test Item Value Reference Range Interpretation Comme nts Blood group antibody screen [Presence] in Serum or Plasma (test code = 890-4) negative [facility] HospitalReagin Ab [Presence] in Serum by [id number] 07:30:00* Test Item Value Reference Range Interpretation Comme nts Reagin Ab [Presence] in Seru m by RPR (test code = 85959-8) nonreactive nonreactive [facility] HospitalHepatitis B virus surface Ag [Presence] in Serum 2019-01-26 07:30:00* Test Item Value Reference Range Interpretation Comme nts .hepatitis B surface antigen (test code = .hepatitis B surface antigen) negative negative [facility] HospitalBacteria identified in Urine by [id number] 07:30:00* Test Item Value Reference Range Interpretation Comme nts Bacteria identified in Urine by Culture (test code = 630-4) no growth at 48 hrs. [facility] HospitalChoriogonadotropin.beta subunit [Units/volume] in Serum or [id number] 02:05:00* Test Item Value Reference Range Interpretation Comme nts HCG quantitative (test code = HCG quantitative) 4590.0 mIU/mL 0-5 H [facility] HospitalChoriogonadotropin.beta subunit [Units/volume] in Serum or [id number] 02:05:00* Test Item Value Reference Range Interpretation Comme nts HCG quantitative (test code = HCG quantitative) 4590.0 mIU/mL 0-5 H [facility] HospitalChoriogonadotropin.beta subunit [Units/volume] in Serum or [id number] 02:05:00* Test Item Value Reference Range Interpretation Comme nts HCG quantitative (test code = HCG quantitative) 4590.0 mIU/mL 0-5 H [facility] HospitalCB W Auto Differential panel - [id number] 11:00:00 * Test Item Value Reference Range Interpretation Comme nts white blood count (test code = white blood count) 4.9 K/uL 4.0-11.5 red blood count (test code = red blood count) 4.02 M/uL 3.80-5.20 Hemoglobin [Mass/volume] in Blood (test code = 718-7) 13.0 g/dL 10.5-15.7 hematocrit (test code = hematocrit) 40.1 % 34.0-50.0 Erythrocyte mean corpuscular volume [Entitic volume] (test code = 39156-9) 99.7 fL 78-98 H Erythrocyte mean corpuscular hemoglobin [Entitic mass] (test code = 39640-8) 32.4 pg 26.2-33.4 mean corpuscular HGB conc (t est code = mean corpuscular HGB conc) 32.5 g/dL 31.5-36.2 red cell distribution width (test code = red cell distribution width) 11.4 % 11.5-15.5 L Platelets [#/volume] in Bloo d (test code = 09275-6) 212 K/uL 137-338 Platelet mean volume [Entiti c volume] in Blood (test code = 71059-0) 8.4 fL 8.4-11.8 Neutrophils.band form/100 leukocytes in Blood (test code = 81644-6) 53.6 % 44.4-80.1 Lymphocytes/100 leukocytes i n Body fluid (test code = 79506-1) 37.4 % 10.0-50.0 Monocytes/100 leukocytes in Blood by Automated count (test code = 5905-5) 5.5 % 3.6-12.04 Eosinophils/100 leukocytes i n Blood by Automated count (test code = 713-8) 1.9 % 0.0-5.41 Basophils/100 leukocytes in Blood by Automated count (test code = 706-2) 1.6 % 0.0-0.79 H [facility] Groupdifferential panel, [id number] 11:00:00 NeutrophilsBandLymphocyteMonocyteEosinophilBasophilPlatelet EstimatePlatelet MorphologyPolychromasiaHypochromasiaPoikilocytosisBasophilic StipplingAnisocytosisMicrocytosisMacrocytosisOvalocytesStomatocyteBurr CellsAcanthocytesMatagoa Medical GroupReagin Ab [Presence] in Serum by R 2019-01-03 11:00:00* Test Item Value Reference Range Interpretation Comme nts Reagin Ab [Presence] in Seru m by RPR (test code = 41048-5) nonreactive nonreactive [facility] [facility] - Serum or [...] (test code = 6768-6) 59 U/L 35-105 [facility] [Presence] in [id number] 11:00:00HIV P24 AgALV-1/2 AbMaWhitfield [facility] Surgical HospitalHepatitis B virus surface Ag [Presence] in [id number] 11:00:00* Test Item Value Reference Range Interpretation Comme nts .hepatitis B surface antigen (test code = .hepatitis B surface antigen) negative negative [facility]
[2023-11-04 14:35] LABS: SARS-COV-2 RT PCR NEGATIVE (NEGATIVE)
--- NOTE | 2023-11-04 14:44 | RAD REPORT ---
EXAM DESCRIPTION: RAD - Chest Single View - 11/04/2023 2:21 pm CLINICAL HISTORY: COUGH COMPARISON: Chest Single View dated 06/13/2020 FINDINGS: Lines: None. Lungs: No evidence of edema or pneumonia. Pleural: No significant pleural effusions or pneumothorax. Cardiac: The heart size is within normal limits. Mediastinum: Within normal limits. Bones: No acute fractures. Other: None IMPRESSION: No acute cardiopulmonary disease.
--- NOTE | 2023-11-04 14:50 | EDPHYS ---
Physician Documentation [facility] Name: Jade Murillo Age: 33 yrs Sex: Female : 1990 Arrival Date: 11/04/2023 Time: 13:24 Bed 9 Private MD: ED Physician Landon Betancourt HPI: 11/04 13:39 This 33 yrs old Black Female presents to ER via Ambulatory with complaints of Flu ec2 Symptoms. 13:39 Patient arrives today for evaluation of URI symptoms symptoms. Patient reports that she ec2 has been experiencing a couple days of cough and cold symptoms, reports increased fatigue and malaise. Reports no vomiting or diarrhea, denies any difficulty breathing. Reports that she has an occasional productive sputum. Reports no significant medical problems and no allergies.. 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 - Social history:: Smoking status: Patient denies any tobacco usage or history of. ROS: 13:39 Constitutional: as per hpi ec2 Exam: 13:39 Constitutional: GEN: NAD Head: atraumatic Eyes: EOMI Ears: External ears are normal. ec2 Oropharynx: Posterior oropharynx is clear without erythema or exudate appreciated. CV: regular rate LUNGS: no respiratory distress, no wheezes, no rales, rhonchi ABD: non-distended SKIN: no evidence of rashes MSK: no evidence of trauma NEURO: moves all extremities equally Vital Signs: 13:31 BP 133 / 79; Pulse 78; Resp 18 S; Temp 98.3(O); Pulse Ox 100% on R/A; Weight 71.21 kg; cm10 Height 5 ft. 4 in. ; Pain 0/10; 15:04 BP 129 / 76; Pulse 71; Resp 16; Pulse Ox 98% on R/A; tl4 13:31 Body Mass Index 26.95 (71.21 kg, 162.56 cm) cm10 13:31 Pain Scale: Adult cm10 MDM: 13:38 Patient medically screened. ec2 13:39 Data reviewed: vital signs. ED course: Patient arrives today for evaluation of URI ec2 signs symptoms. Examination remarkable for well-appearing nontoxic individual is otherwise in no acute distress. Will obtain viral swab, chest x-ray. Currently considering viral infection, lower suspicion for pneumonia however will obtain chest x-ray.. 14:50 ED course: Negative for flu COVID and RSV. Chest x-ray shows no acute intrathoracic ec2 process. Will discharge home, suspect viral process. Return precautions given . 11/04 13:36 Order name: COVID-19/FLU A+B/RSV; Complete Time: 14:49 cm10 11/04 13:36 Order name: Chest Single View XRAY; Complete Time: 14:49 cm10 Administered Medications: No medications were administered Disposition Summary: 11/04/23 14:50 Discharge Ordered Notes: Location: Home ec2 Condition: Stable ec2 Diagnosis - Viral infection, unspecified ec2 Followup: ec2 - With: Private Physician - When: - Reason: Recheck today's complaints Discharge Instructions: - Discharge Summary Sheet ec2 - Viral Illness, Adult ec2 Forms: - Work release form ec2 - Medication Reconciliation Form ec2 - Thank You Letter ec2 - Antibiotic Education ec2 - Prescription Opioid Use ec2 - Patient Portal Instructions ec2 - Leadership Thank You Letter ec2 Prescriptions: - Zofran 4 mg Oral Tablet - take 1 tablet ORAL route every 12 hours As needed; 20 tablet; Refills: 0, ec2 Product Selection Permitted - Tessalon Perles 100 mg Oral Capsule - take 1 capsule ORAL route every 8 hours As needed; 15 capsule; Refills: 0, ec2 Product Selection Permitted Signatures: Dispatcher [employer] Cheyenne Reina RN RN cm10 Landon Betancourt MD MD ec2 Corrections: (The following items were deleted from the chart) 13:40 13:39 Constitutional: No acute distress ec2 ec2
--- NOTE | 2023-11-04 14:50 | ER ---
Nurse's Notes [facility] Name: Jade Murillo Age: 33 yrs Sex: Female : 1990 Arrival Date: 11/04/2023 Time: 13:24 Bed 9 Private MD: Diagnosis: Viral infection, unspecified Presentation: 11/04 13:31 Chief complaint: Patient states: Cough and sore throat onset Wednesday. Pt states that cm10 her cough is productive and she is coughing up green sputum. Coronavirus screen: Vaccine status: Patient reports being unvaccinated. Client denies travel out of the [place] in the last 14 days. Ebola Screen: Patient denies travel to an Ebola-affected area in the 21 days before illness onset. No symptoms or risks identified at this time. Initial Sepsis Screen: Does the patient meet any 2 criteria? No. Patient's initial sepsis screen is negative. Does the patient have a suspected source of infection? No. Patient's initial sepsis screen is negative. Risk Assessment: Do you want to hurt yourself or someone else? Patient reports no desire to harm self or others. Onset of symptoms was November 04, 2023. 13:31 Method Of Arrival: Ambulatory cm10 13:31 Acuity: KEVYN 4 cm10 Triage Assessment: 15:05 General: Appears in no apparent distress. Behavior is calm, cooperative. 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 - Social history:: Smoking status: Patient denies any tobacco usage or history of. Screenin:05 [facility] ED Fall Risk Assessment (Adult) History of falling in the last 3 months, tl4 including since admission No falls in past 3 months (0 pts) Confusion or Disorientation No (0 pts) Intoxicated or Sedated No (0 pts) Impaired Gait No (0 pts) Mobility Assist Device Used No (0 pt) Altered Elimination No (0 pt) Score/Fall Risk Level 0 - 2 = Low Risk. Abuse screen: Denies threats or abuse. Denies injuries from another. Nutritional screening: No deficits noted. Tuberculosis screening: No symptoms or risk factors identified. Assessment: 15:04 Reassessment: No changes from previously documented assessment. Patient and/or family tl4 updated on plan of care and expected duration. Pain level reassessed. Patient is alert, oriented x 3, equal unlabored respirations, skin warm/dry/pink. Pain: Complains of pain in generalized body aches. Vital Signs: 13:31 BP 133 / 79; Pulse 78; Resp 18 S; Temp 98.3(O); Pulse Ox 100% on R/A; Weight 71.21 kg; cm10 Height 5 ft. 4 in. ; Pain 0/10; 15:04 BP 129 / 76; Pulse 71; Resp 16; Pulse Ox 98% on R/A; tl4 13:31 Body Mass Index 26.95 (71.21 kg, 162.56 cm) cm10 13:31 Pain Scale: Adult cm10 ED Course: 13:27 Patient arrived in ED. mg5 13:28 Landon Betancourt MD is Attending Physician. ec2 13:32 Triage completed. cm10 13:33 Arm band placed on Patient placed in an exam room. cm10 13:42 LogdaAlfredo is Primary Nurse. tl4 13:45 COVID-19/FLU A+B/RSV Sent. tl4 14:23 Chest Single View XRAY In Process Unspecified. EDMS 15:05 Patient has correct armband on for positive identification. Bed in low position. Call tl4 light in reach. Side rails up X 1. Provided Education on: ED process. 15:06 No provider procedures requiring assistance completed. Patient did not have IV access tl4 during this emergency room visit. Administered Medications: No medications were administered Medication: 15:05 VIS not applicable for this client. tl4 Outcome: 14:50 Discharge ordered by . ec2 15:06 Discharged to home ambulatory, tl4 15:06 Condition: good 15:06 Discharge instructions given to patient, Instructed on discharge instructions, follow up and referral plans. medication usage, Demonstrated understanding of instructions, follow-up care, medications, 15:06 Patient left the ED. tl4 Signatures: Dispatcher [employer] Cheyenne Reina RN RN [facility] Geni Armstrong 5 Landon Betancourt MD MD ec2 Logdahl, Alfredo tl4
[2023-11-04 16:54] VITALS: BP 129/76; TEMP 98.3; O2SAT 98
== END ==
LOC: ER 13:24
DX: B34.9 Viral infection, unspecified (principal); Z11.52 Encounter for screening for COVID-19
CPT/HCPCS: 0241U; 71045; 99283

== ENCOUNTER → 2023-12-26 | Emergency (ER) | payer OTHER ==
--- OUTSIDE RECORDS SUMMARY | 2023-12-26 13:16 | XMS REPORT | Continuity of Care Document ---
Author Name Unknown Address [address] [place] [address] [facility] thconnect Address [address] [place] [address] Care Team Providers Care Trauma Manager Name Role Phone CLARICE SMITH Primary Care Physician CLARICE Khalil Attending Clinician Unavailab CLARICE Amaral Attending Clinician Unavailab PATRICIA Lopes Attending Clinician Unavailable Katieledge_Azalia Attending Clinician Unavailable JOSEPH DOWLING Attending Clinician Unavailable TETE GALAN Attending Dominickia zoraida Unavailable CEDRICK CARROLL Attending Clinician Unavaila ble 2, [facility] Attending Clinician Unavailable ANNA GUNTER Attending Clinician Unavailveronika ALFORD Attending Clinician Unavailab YARY Rondon Attending Clinician Unavailable AYAZ DURAND Attending Clinician Unavail able TORY FERNÁNDEZ Attending Clinician Unavaila MIKE East Attending Clinician Unavailable OWEN RINCON Attending Clinician Unavaila FABIO Otto Attending Clinician Unavailable GRAZYNA PEDRAZA Attending Clinician Unavailab MARY Joyce Attending Clinician Unavailable RAMIRO MAY Attending Clinician Unavailab KATELYNN De Leon Attending Clinician Unavailable YUNG MEDIEROS Attending Clinician Unavailable Rene Goins Attending Clinician Unavailab NATALIE Farris Attending Clinician Unavailable NADINE PINTO Attending Clinician Unavailable Ravi_Azalia Admitting Clinician Unavailable PRASHANTH Admitting Clinician Unavailab TORY Badillo Admitting Clinician Unavaila annie Payers Payer Name Policy Type Policy Number Effective Date Expirati on Date Source REPLACED BY [facility] [id number] 2022 00:00:00 [facility] [id number] [facility]ANE MONZON COPAY FOCUS 9 [id number] 2023 00:00:00 [employer] (MEDICAID REPLACEMENT - HMO) [id number] 2022 00:00:00 2023 00:00:00 [place] [place]ID[place] [id number] [place] [id number] 2019 00:00:00 [place] [facility] MEDICAL LIMITED PLAN - MULTIPLAN [id number] Problems Condition Name Condition Details Condition Category Status Onset Date Resolution Date Last Treatment Date Treating Clinician Comments Source Acute cough Acute cough Disease Active 2024-0 1-30 00:00: 00 Tete Seybold - Externa l Intramural leiomyoma of uterus Intramural Leiomyoma of Uterus Problem Active 517 00:00: 00 [facility] Gonorrhea Gonorrhea Problem Active 2019-11 013 00:00: 00 [facility] Uses transderma l contracept ion Uses Transderma l Contracept ion Problem Active 08-05 00:00: 00 [facility] Gynecologi c examinatio n Gynecologi c Examinatio n Problem Active 08-05 00:00: 00 [facility] Venereal disease screening Venereal Disease Screening Problem Active 08-05 00:00: 00 [facility] Irregular intermenst rual bleeding Irregular Intermenst rual Bleeding Problem Active 04-23 00:00: 00 [facility] Initiation of transderma l contracept ion done Initiation of Transderma l Contracept ion Done Problem Active 04-23 00:00: 00 [facility] care Care Problem Active 2018-11 00:00: 00 [facility] Initiation of depot contracept ion done Initiation of Depot Contracept ion Done Problem Active 2018-11 00:00: 00 [facility] Contracept ion education Contracept ion Education Problem Active 2018-11 00:00: 00 [facility] Small for gestationa l age fetus Small for Gestationa l Age Fetus Problem Active 07-05 00:00: 00 [facility] Unintentio nal weight loss Unintentio nal Weight Loss Problem Active 03-14 00:00: 00 [facility] Severe hyperemesi s gravidarum Severe Hyperemesi s Gravidarum Problem Active 02-14 00:00: 00 [facility] No known active problems No known active problems Disease [facility] Allergies, Adverse Reactions, Alerts Allergy Name Allergy Type Status Severity Reaction(s) Onset Date Inactive Date Treating Clinician Comments Source No Known Allergie s DA Active U 08-02 00:00: 00 [facility] NO KNOWN ALLERGIE S Drug Class Active [facility] Social History Social Habit Start Date Stop Date Quantity Comments Source Sexual orientation Patrice Rico - External Tobacco use and exposure 2023-12-07 00:00:00 2023-12-07 00:00:00 Smokeless tobacco non-user Tete Hemeganelvira - External Alcohol intake 2023-12-07 00:00:00 2023-12-07 00:00:00 Lifetime non-drinker (finding) Tete Jacky - External History of Social function 2023-12-07 00:00:00 2023-12-07 00:00:00 Tete Jacky - External Exposure to SARS-CoV-2 (event) 2022-11-10 00:00:00 2022-11-20 13:38:00 Not sure [facility] Sex Assigned At 1990 00:00:00 1990 00:00:00 Tete Hemeganelvira - External Smoking Status Start Date Stop Date Source Tobacco smoking consumption unknown Tete Hemeganelvira - External Never smoked tobacco Tete Seандрей - External Medications Ordered Medication Name Filled Medication Name Start Date Stop Date Current Medication? Ordering Clinician Indication Dosage Frequency Signature (SIG) Comments Components Source Famotidine (Pepcid) 20 MG oral tablet 12-07 00:00: 00 Yes [id number] 20mg Take 1 tablet (20 mg total) by mouth 2 times daily. Tete vieyra Benzonatate (Tessalon Perles) 100 MG oral Capsule 12-07 00:00: 00 Yes [id number] 100mg [id number] 3D Take 1 capsule (100 mg total) by mouth 3 times daily as needed for cough. Tete vieyra methylPREDN ISolone 4 MG oral Tablet Therapy Pack 11-30 00:00: 00 Yes [id number] 1{piter} Take 1 piter by mouth See Admin Instructio ns Use as directed. Tete vieyra Azithromyci n 250 MG oral Tablet 11-30 00:00: 00 Yes [id number] Take 2 tablets by mouth on day 1 then 1 tablet by mouth daily for 4 days thereafter .. Tete vieyra methylPREDN ISolone 4 MG oral Tablet Therapy Pack 11-30 00:00: 00 12-07 00:00 :00 No [id number] 1{piter} Take 1 piter by mouth See Admin Instructio ns Use as directed. Tete Moreno Nemoshila vieyra Azithromyci n 250 MG oral Tablet 11-30 00:00: 00 12-07 00:00 :00 No [id number] Take 2 tablets by mouth on day 1 then 1 tablet by mouth daily for 4 days thereafter .. Tete Moreno Geri azalia medroxyprog esterone 150 mg/mL intramuscul ar suspensionI nject 1 mL every 3 months by intramuscul ar route. medroxyprog esterone 150 mg/mL intramuscul ar suspensionI nject 1 mL every 3 months by intramuscul ar route. 2022-11 10:39: 54 No medroxypro gesterone 150 mg/mL intramuscu lar suspension Inject 1 mL every 3 months by intramuscu lar route. [facility] EPINEPHrine 0.15 mg/0.3 mL injection 11-12 00:00: 00 Yes INJECT 0.3 ML(S) INTRAMUSCU LARLY NEEDED FOR ANAPHYLAXI S. [facility] EPINEPHrine 0.15 mg/0.3 mL injection 11-12 00:00: 00 Yes INJECT 0.3 ML(S) INTRAMUSCU LARLY NEEDED FOR ANAPHYLAXI S. [facility] EPINEPHrine 0.15 mg/0.3 mL injection 11-12 00:00: 00 Yes INJECT 0.3 ML(S) INTRAMUSCU LARLY NEEDED FOR ANAPHYLAXI S. [facility] medroxyprog esterone 10 mg tablet TAKE ONE (1) TABLET(S) BY MOUTH ONCE A DAY. medroxyprog esterone 10 mg tablet TAKE ONE (1) TABLET(S) BY MOUTH ONCE A DAY. No medroxypro gesterone 10 mg tablet TAKE ONE (1) TABLET(S) BY MOUTH ONCE A DAY. [facility] medroxyprog esterone 150 mg/mL intramuscul ar suspension Inject 1 mL every 3 months by intramuscul ar route. medroxyprog esterone 150 mg/mL intramuscul ar suspension Inject 1 mL every 3 months by intramuscul ar route. No 1mL medroxypro gesterone 150 mg/mL intramuscu lar suspension Inject 1 mL every 3 months by intramuscu lar route. [facility] cholecalcif jeremiah (vitamin D3) 1,250 mcg (50,000 unit) capsule TAKE ONE (1) CAPSULE(S) BY MOUTH ONCE WEEKLY. cholecalcif jeremiah (vitamin D3) 1,250 mcg (50,000 unit) capsule TAKE ONE (1) CAPSULE(S) BY MOUTH ONCE WEEKLY. No cholecalci ferol (vitamin D3) 1,250 mcg (50,000 unit) capsule TAKE ONE (1) CAPSULE(S) BY MOUTH ONCE WEEKLY. [facility] medroxyprog esterone 150 mg/mL intramuscul ar suspension Inject 1 mL every 3 months by intramuscul ar route. medroxyprog esterone 150 mg/mL intramuscul ar suspension Inject 1 mL every 3 months by intramuscul ar route. No 1mL medroxypro gesterone 150 mg/mL intramuscu lar suspension Inject 1 mL every 3 months by intramuscu lar route. [facility] medroxyprog esterone 150 mg/mL intramuscul ar syringe INJECT ONE (1) ML(S) INTO THE MUSCLE EVERY 3 MONTHS. medroxyprog esterone 150 mg/mL intramuscul ar syringe INJECT ONE (1) ML(S) INTO THE MUSCLE EVERY 3 MONTHS. No medroxypro gesterone 150 mg/mL intramuscu lar syringe INJECT ONE (1) ML(S) INTO THE MUSCLE EVERY 3 MONTHS. [facility] Provera 10 mg tablet Take 1 tablet every day by oral route for 14 days. Provera 10 mg tablet Take 1 tablet every day by oral route for 14 days. No 1 Q1D Provera 10 mg tablet Take 1 tablet every day by oral route for 14 days. [facility] cholecalcif jeremiah (vitamin D3) 1,250 mcg (50,000 unit) capsule TAKE ONE (1) CAPSULE(S) BY MOUTH ONCE WEEKLY. cholecalcif jeremiah (vitamin D3) 1,250 mcg (50,000 unit) capsule TAKE ONE (1) CAPSULE(S) BY MOUTH ONCE WEEKLY. No cholecalci ferol (vitamin D3) 1,250 mcg (50,000 unit) capsule TAKE ONE (1) CAPSULE(S) BY MOUTH ONCE WEEKLY. [facility] famotidine 20 mg tablet TAKE ONE (1) TABLET(S) BY MOUTH TWICE A DAY. famotidine 20 mg tablet TAKE ONE (1) TABLET(S) BY MOUTH TWICE A DAY. No famotidine 20 mg tablet TAKE ONE (1) TABLET(S) BY MOUTH TWICE A DAY. [facility] medroxyprog esterone 10 mg tablet TAKE ONE (1) TABLET(S) BY MOUTH ONCE A DAY FOR 14 DAYS. medroxyprog esterone 10 mg tablet TAKE ONE (1) TABLET(S) BY MOUTH ONCE A DAY FOR 14 DAYS. No medroxypro gesterone 10 mg tablet TAKE ONE (1) TABLET(S) BY MOUTH ONCE A DAY FOR 14 DAYS. [facility] medroxyprog esterone 150 mg/mL intramuscul ar suspension Inject 1 mL every 3 months by intramuscul ar route. medroxyprog esterone 150 mg/mL intramuscul ar suspension Inject 1 mL every 3 months by intramuscul ar route. No 1mL medroxypro gesterone 150 mg/mL intramuscu lar suspension Inject 1 mL every 3 months by intramuscu lar route. [facility] medroxyprog esterone 150 mg/mL intramuscul ar syringe INJECT ONE (1) ML(S) INTO THE MUSCLE EVERY 3 MONTHS. medroxyprog esterone 150 mg/mL intramuscul ar syringe INJECT ONE (1) ML(S) INTO THE MUSCLE EVERY 3 MONTHS. No medroxypro gesterone 150 mg/mL intramuscu lar syringe INJECT ONE (1) ML(S) INTO THE MUSCLE EVERY 3 MONTHS. [facility] methylpredn isolone 4 mg tablets in a dose pack TAKE BY MOUTH DIRECTED. methylpredn isolone 4 mg tablets in a dose pack TAKE BY MOUTH DIRECTED. No methylpred nisolone 4 mg tablets in a dose pack TAKE BY MOUTH DIRECTED. [facility] Xulane 150 mcg-35 mcg/24 hr transdermal patch Apply 1 patch every week by transdermal route. Xulane 150 mcg-35 mcg/24 hr transdermal patch Apply 1 patch every week by transdermal route. No 1patch( es) Q1W Xulane 150 mcg-35 mcg/24 hr transderma l patch Apply 1 patch every week by transderma l route. [facility] Vital Signs Vital Name Observation Time Observation Value Comments S ource BP Systolic 2023-12-17 00:00:00 130 mm[Hg] [facility] BMI (Body Mass Index) 2023-12-17 00:00:00 26.9 kg/m2 [facility] BP Diastolic 2023-12-17 00:00:00 77 mm[Hg] [facility] Body Weight 2023-12-17 00:00:00 156.7 [facility]lb_av[facility] Height 2023-12-17 00:00:00 64 [in_i] [facility] Systolic blood pressure 2023-12-07 20:19:00 124 mm[Hg] Tete Seybo ld - External Diastolic blood pressure 2023-12-07 20:19:00 76 mm[Hg] Tete Seybo ld - External Heart rate 2023-12-07 20:19:00 100 /min Kelse y Seybold - External Body temperature 2023-12-07 20:19:00 35.94 Kiley Tete Seybold - External Respiratory rate 2023-12-07 20:19:00 14 /min Tete Seybold - External Body height 2023-12-07 20:19:00 162.6 cm Massiel ey Seybold - External Body weight 2023-12-07 20:19:00 70.761 kg Massiel ey Seybold - External BMI 2023-12-07 20:19:00 26.78 kg/m2 Massiel ey Seybold - External Body Weight 2023-10-21 00:00:00 156.3 [lb_av] [facility] Height 2023-10-21 00:00:00 64 [in_i] [facility] BP Systolic 2023-10-21 00:00:00 132 mm[Hg] [facility] BP Diastolic 2023-10-21 00:00:00 89 mm[Hg] [facility] BMI (Body Mass Index) 2023-10-21 00:00:00 26.8 kg/m2 [place] [facility] Body Weight 2023-06-29 00:00:00 151 [lb_av] [facility] BP Systolic 2023-06-29 00:00:00 133 mm[Hg] [facility] Height 2023-06-29 00:00:00 64 [in_i] [facility] BMI (Body Mass Index) 2023-06-29 00:00:00 25.9 kg/m2 [facility] [place] [facility] BP Diastolic 2023-06-29 00:00:00 88 mm[Hg] [facility] Systolic blood pressure 2022-11-20 19:55:00 128 mm[Hg] [facility] Diastolic blood pressure 2022-11-20 19:55:00 76 mm[Hg] [facility] Heart rate 2022-11-20 19:55:00 82 /min [facility] Body temperature 2022-11-20 19:55:00 36.67 Kiley [facility] Respiratory rate 2022-11-20 19:55:00 18 /min [facility] Body height 2022-11-20 19:55:00 162.6 cm [facility] Body weight 2022-11-20 19:55:00 72.576 kg [facility] BMI 2022-11-20 19:55:00 27.46 kg/m2 [facility] Oxygen saturation in Arterial blood by Pulse oximetry 2022-11-20 19:55:00 100 /min [facility] BP Diastolic 2022-06-22 00:00:00 82 mm[Hg] [facility] Height 2022-06-22 00:00:00 64 [in_i] [facility] BMI (Body Mass Index) 2022-06-22 00:00:00 26 kg/m2 [place] [facility] BP Systolic 2022-06-22 00:00:00 131 mm[Hg] [facility] Body Weight 2022-06-22 00:00:00 151.4 [lb_av] [facility] BP Diastolic 2022-05-08 00:00:00 92 mm[Hg] [facility] Height 2022-05-08 00:00:00 64 [in_i] [facility] BMI (Body Mass Index) 2022-05-08 00:00:00 25.9 kg/m2 [place] [facility] BP Systolic 2022-05-08 00:00:00 142 mm[Hg] [facility] Body Weight 2022-05-08 00:00:00 151 [lb_av] [facility] Height 2022-03-18 00:00:00 64 [in_i] [facility] BP Diastolic 2021-12-18 00:00:00 88 mm[Hg] [facility] Height 2021-12-18 00:00:00 64 [in_i] [facility] BMI (Body Mass Index) 2021-12-18 00:00:00 25.5 kg/m2 [place] [facility] BP Systolic 2021-12-18 00:00:00 138 mm[Hg] [facility] Body Weight 2021-12-18 00:00:00 148.4 [lb_av] [facility] Height 2021-09-17 00:00:00 64 [in_i] [facility] BMI (Body Mass Index) 2021-09-17 00:00:00 23.2 kg/m2 [facility] [place] [facility] Body Weight 2021-09-17 00:00:00 135 [lb_av] [facility] BP Diastolic 2021-09-02 00:00:00 75 mm[Hg] [facility] Height 2021-09-02 00:00:00 64 [in_i] [facility] BMI (Body Mass Index) 2021-09-02 00:00:00 23 kg/m2 [place] [facility] BP Systolic 2021-09-02 00:00:00 119 mm[Hg] [facility] Body Weight 2021-09-02 00:00:00 134.2 [lb_av] [facility] BP Diastolic 2021-08-19 00:00:00 87 mm[Hg] [facility] Height 2021-08-19 00:00:00 64 [in_i] [facility] BMI (Body Mass Index) 2021-08-19 00:00:00 22.6 kg/m2 [facility] [place] [facility] BP Systolic 2021-08-19 00:00:00 124 mm[Hg] [facility] Body Weight 2021-08-19 00:00:00 131.9 [lb_av] [facility] BP Diastolic 2021-04-11 00:00:00 81 mm[Hg] [facility] Height 2021-04-11 00:00:00 64 [in_i] [facility] BMI (Body Mass Index) 2021-04-11 00:00:00 21.1 kg/m2 [place] [facility] BP Systolic 2021-04-11 00:00:00 144 mm[Hg] [facility] Body Weight 2021-04-11 00:00:00 122.9 [lb_av] [facility] Height 2021-03-24 00:00:00 64 [in_i] [facility] BMI (Body Mass Index) 2021-03-24 00:00:00 20.9 kg/m2 [place] [facility] BP Systolic 2021-03-24 00:00:00 127 mm[Hg] [facility] Body Weight 2021-03-24 00:00:00 122 [lb_av] [facility] BP Diastolic 2021-03-24 00:00:00 83 mm[Hg] [facility] BP Diastolic 2020-09-24 00:00:00 83 mm[Hg] [facility] Height 2020-09-24 00:00:00 64 [in_i] [facility] BMI (Body Mass Index) 2020-09-24 00:00:00 22.7 kg/m2 [place] [facility] BP Systolic 2020-09-24 00:00:00 120 mm[Hg] [facility] Body Weight 2020-09-24 00:00:00 132.4 [lb_av] [facility] BP Diastolic 2020-08-20 00:00:00 70 mm[Hg] [facility] Height 2020-08-20 00:00:00 64 [in_i] [facility] BMI (Body Mass Index) 2020-08-20 00:00:00 22.6 kg/m2 [place] [facility] BP Systolic 2020-08-20 00:00:00 131 mm[Hg] [facility] Body Weight 2020-08-20 00:00:00 131.5 [lb_av] [facility] BP Diastolic 2020-08-05 00:00:00 80 mm[Hg] [facility] Height 2020-08-05 00:00:00 64 [in_i] [facility] BMI (Body Mass Index) 2020-08-05 00:00:00 22.3 kg/m2 [place] [facility] BP Systolic 2020-08-05 00:00:00 130 mm[Hg] [facility] Body Weight 2020-08-05 00:00:00 130 [lb_av] [facility] BP Diastolic 2020-04-23 00:00:00 82 mm[Hg] [facility] Height 2020-04-23 00:00:00 64 [in_i] [facility] BMI (Body Mass Index) 2020-04-23 00:00:00 23 kg/m2 [facility] [place] [facility] BP Systolic 2020-04-23 00:00:00 128 mm[Hg] [facility] Body Weight 2020-04-23 00:00:00 134 [lb_av] [facility] BP Diastolic 2020-01-02 00:00:00 73 mm[Hg] [facility] Height 2020-01-02 00:00:00 64 [in_i] [facility] BMI (Body Mass Index) 2020-01-02 00:00:00 21.8 kg/m2 [facility] [place] [facility] BP Systolic 2020-01-02 00:00:00 114 mm[Hg] [facility] Body Weight 2020-01-02 00:00:00 127.1 [lb_av] [facility] BP Diastolic 2019-09-19 00:00:00 78 mm[Hg] [facility] Height 2019-09-19 00:00:00 64 [in_i] [facility] BMI (Body Mass Index) 2019-09-19 00:00:00 21.8 kg/m2 [facility] [place] [facility] BP Systolic 2019-09-19 00:00:00 122 mm[Hg] [facility] Body Weight 2019-09-19 00:00:00 127.2 [lb_av] [facility] BP Diastolic 2019-08-02 00:00:00 77 mm[Hg] [facility] Height 2019-08-02 00:00:00 64 [in_i] [facility] BMI (Body Mass Index) 2019-08-02 00:00:00 22 kg/m2 [facility] [place] [facility] BP Systolic 2019-08-02 00:00:00 116 mm[Hg] [facility] Body Weight 2019-08-02 00:00:00 128 [lb_av] [facility] BP Diastolic 2019-07-19 00:00:00 76 mm[Hg] [facility] Height 2019-07-19 00:00:00 64 [in_i] [facility] BMI (Body Mass Index) 2019-07-19 00:00:00 21.8 kg/m2 [facility] [place] [facility] BP Systolic 2019-07-19 00:00:00 117 mm[Hg] [facility] Body Weight 2019-07-19 00:00:00 127 [lb_av] [facility] BP Diastolic 2019-07-05 00:00:00 63 mm[Hg] [facility] Height 2019-07-05 00:00:00 64 [in_i] [facility] BMI (Body Mass Index) 2019-07-05 00:00:00 21.9 kg/m2 [place] [facility] BP Systolic 2019-07-05 00:00:00 103 mm[Hg] [facility] Body Weight 2019-07-05 00:00:00 127.5 [lb_av] [facility] BP Diastolic 2019-06-05 00:00:00 76 mm[Hg] [facility] Height 2019-06-05 00:00:00 64 [in_i] [facility] BMI (Body Mass Index) 2019-06-05 00:00:00 20.9 kg/m2 [facility] [place] [facility] BP Systolic 2019-06-05 00:00:00 106 mm[Hg] [facility] Body Weight 2019-06-05 00:00:00 122 [lb_av] [facility] BP Diastolic 2019-05-08 00:00:00 69 mm[Hg] [facility] Height 2019-05-08 00:00:00 64 [in_i] [facility] BMI (Body Mass Index) 2019-05-08 00:00:00 20.5 kg/m2 [facility] [place] [facility] BP Systolic 2019-05-08 00:00:00 107 mm[Hg] [facility] Body Weight 2019-05-08 00:00:00 119.4 [lb_av] [facility] BP Diastolic 2019-04-10 00:00:00 81 mm[Hg] [facility] Height 2019-04-10 00:00:00 64 [in_i] [facility] BMI (Body Mass Index) 2019-04-10 00:00:00 19.3 kg/m2 [facility] [place] [facility] BP Systolic 2019-04-10 00:00:00 119 mm[Hg] [facility] Body Weight 2019-04-10 00:00:00 112.5 [lb_av] [facility] BP Diastolic 2019-04-04 00:00:00 85 mm[Hg] [facility] Height 2019-04-04 00:00:00 64 [in_i] [facility] BMI (Body Mass Index) 2019-04-04 00:00:00 19.4 kg/m2 [facility] BP Systolic 2019-04-04 00:00:00 132 mm[Hg] [facility] Body Weight 2019-04-04 00:00:00 113 [lb_av] [facility] BP Diastolic 2019-03-14 00:00:00 87 mm[Hg] [facility] Height 2019-03-14 00:00:00 64 [in_i] [facility] BMI (Body Mass Index) 2019-03-14 00:00:00 19.1 kg/m2 [facility] BP Systolic 2019-03-14 00:00:00 124 mm[Hg] [facility] Body Weight 2019-03-14 00:00:00 111 [lb_av] [facility] BP Diastolic 2019-02-14 00:00:00 97 mm[Hg] [facility] Height 2019-02-14 00:00:00 64 [in_i] [facility] BMI (Body Mass Index) 2019-02-14 00:00:00 20.6 kg/m2 [facility] BP Systolic 2019-02-14 00:00:00 135 mm[Hg] [facility] Body Weight 2019-02-14 00:00:00 120 [lb_av] [facility] BP Diastolic 2019-02-07 00:00:00 83 mm[Hg] [facility] Height 2019-02-07 00:00:00 64 [in_i] [facility] BMI (Body Mass Index) 2019-02-07 00:00:00 22 kg/m2 [facility] [place] [facility] BP Systolic 2019-02-07 00:00:00 124 mm[Hg] [facility] Body Weight 2019-02-07 00:00:00 128.4 [lb_av] [facility] BP Diastolic 2019-01-26 00:00:00 84 mm[Hg] [facility] Height 2019-01-26 00:00:00 64 [in_i] [facility] BMI (Body Mass Index) 2019-01-26 00:00:00 22.4 kg/m2 [facility] BP Systolic 2019-01-26 00:00:00 128 mm[Hg] [facility] Body Weight 2019-01-26 00:00:00 130.4 [lb_av] [facility] BP Diastolic 2019-01-03 00:00:00 76 mm[Hg] [facility] Height 2019-01-03 00:00:00 64 [facility] BMI (Body Mass Index) 2019-01-03 00:00:00 22.4 kg/m2 [facility] BP Systolic 2019-01-03 00:00:00 118 mm[Hg] [facility] Body Weight 2019-01-03 00:00:00 130.3 [facility]lb_av[facility] Procedure Date / Time Performed Performing Clinician Source FREE T4 2022-11-20 20:48:00 [facility] THYROID STIMULATING HORMONE 2022-11-20 20:48:00 [facility] COMP. METABOLIC PANEL (15202) 2022-11-20 20:48:00 [facility] LIPID PANEL (20004)(TOTAL CHOLESTEROL, TRIGLYCERIDES, HDL) 2022-11-20 20:48:00 [facility] CBC WITH DIFF 2022-11-20 20:48:00 [facility] GLYCOSYLATED HEMOGLOBIN (A1C) 2022-11-20 20:48:00 [facility] FREE T3 2022-11-20 20:48:00 [facility] US, transvaginal 2021-03-24 00:00:00 [facility] US, obstetric, limited 2019-08-02 00:00:00 [facility] US(FBP)W/0 NON STRESS TEST 2019-08-02 00:00:00 [facility] ULTRASOUND REPEAT 2019-07-05 00:00:00 [facility] US, obstetric, limited 2019-04-10 00:00:00 [facility] ULTRASOUND, UTERUS REAL TIME WITH IMAGE DOC, AND MATERNAL EVAL PLUS DETAILED ANATOMIC EXAMINATION, TRANSABDOMINAL APPROACH; SINGLE OR FIRST GESTATION 2019-04-10 00:00:00 [facility] US, obstetric, limited 2019-03-14 00:00:00 [facility] ULTRASOUND, UTERUS REAL TIME WITH IMAGE DOCUMENTAITON, TRANSVAGINAL 2019-02-14 00:00:00 [facility] ULTRASOUND, UTERUS REAL TIME WITH IMAGE DOCUMENTAITON, TRANSVAGINAL 2019-01-26 00:00:00 [facility] XR, hysterosalpingogram 2019-01-03 00:00:00 [facility] Cholecystectomy 2018-11-08 00:00:00 [facility] Dilation and Curettage 2014-09-08 00:00:00 [facility] Plan of Care Planned Activity Planned Date Details Comments Source Diagnostic Test Pending 2023-12-17 00:00:00 urinalysis, dipstick [code = urinalysis, dipstick] [facility] Diagnostic Test Pending 2023-12-17 00:00:00 test, urine [code = test, urine] [facility] Diagnostic Test Pending 2023-12-17 00:00:00 RPR (rapid plasma reagin), serum [code = RPR (rapid plasma reagin), serum] [facility] Diagnostic Test Pending 2023-12-17 00:00:00 HIV (1+2) Ab screen, serum [code = HIV (1+2) Ab screen, serum] [facility] Diagnostic Test Pending 2023-12-17 00:00:00 HBsAg (hepatitis B surface Ag), serum [code = HBsAg (hepatitis B surface Ag), serum] [facility] Diagnostic Test Pending 2023-12-17 00:00:00 STI panel [code = STI panel] [facility] Future Appointment 2024-07-03 09:00:00 Tory Fernández, [address] [place] [address]; [address], [place] [address] [facility] Future Appointment 2024-01-20 09:00:00 Anna Gunter, [address] [place] [address]; [address], [place] [address] [facility] Instructions [facility] dical Group Encounters Start Date/Time End Date/Time Encounter Type Admission Type Attending Clinicians Care Facility Care Department Encounter ID Source 2024-01-11 13:30:00 2024-01-11 13:30:00 Outpatient CLARICE MACKEY [facility]GE[facility]UKWU [facility] [id number] [facility] 2023-12-17 11:19:00 2023-12-17 11:19:00 Outpatient PATRICIA MCHUGH [facility] [id number] [facility] 2023-12-17 00:00:00 2023-12-17 00:00:00 [place] [id number] [facility] 2023-12-17 00:00:00 2023-12-17 00:00:00 PatriciaGERDA Brooks: [address] [facility], [address], [place] [address] , Ph. [phone] MMG [facility] - OBGYN [id number] [facility] 2023-12-07 14:30:00 2023-12-07 14:30:00 Outpatient JOSEPH DOWLING [id number] [facility] 2023-12-06 00:00:00 2023-12-06 00:00:00 Outpatient TETE GALAN [id number] [facility] 2023-11-30 11:00:00 2023-11-30 11:00:00 Outpatient CEDRICK CARROLL [id number] [facility] 2023-11-23 09:30:00 2023-11-23 09:30:00 Outpatient CLARICE MACKEY [facility]WU [facility] [id number] [facility] 2023-10-21 00:00:00 2023-10-21 00:00:00 Anna Gunter MD: [address] [facility], [address], [place] [address] , Ph. [phone] [facility] [id number] [facility] 2023-10-20 00:00:00 2023-10-20 00:00:00 Outpatient Rutledge_L MMG MMG [id number] [facility] 2023-10-20 00:00:00 2023-10-20 00:00:00 Outpatient Rutledge_L MMG MMG [id number] [facility] 2023-10-13 09:07:18 2023-10-13 09:07:18 Outpatient SFA SFA [id number] Jose G Renteria 2023-07-22 00:00:00 2023-07-22 00:00:00 Outpatient Rutledge_L MMG MMG 0914 [facility] 2023-07-22 00:00:00 2023-07-22 00:00:00 Outpatient Rutledge_L MMG MMG [id number] [facility] 2023-06-29 09:08:00 2023-06-29 09:08:00 Outpatient PATRICIA MCHUGH [facility] [id number] [facility] 2023-06-29 00:00:00 2023-06-29 00:00:00 Outpatient Rutledge_L MMG MMG 08 [facility] 2023-06-29 00:00:00 2023-06-29 00:00:00 LORENA SalmeronP-BC: [address] [facility], [address], [place] [address] , Ph. [phone] MM[facility] [id number] [facility] 2022-11-20 15:30:00 2022-11-20 15:45:00 Bow Maker Visit 2, Adc Lab Clarice Smith [facility] [id number] [facility] 2022-11-20 14:00:00 2022-11-20 14:34:54 Outpatient R CLARICE SMITH OGECHUKWU [facility] [id number] [facility] 2022-11-20 14:00:00 2022-11-20 14:34:54 Office Visit Clarice Smith [facility] EVIE NICHOLSON [facility] [id number] [facility] 2022-10-23 00:00:00 2022-10-23 00:00:00 Outpatient Rutledge_L MMG MMG [id number] [facility] 2022-10-23 00:00:00 2022-10-23 00:00:00 Outpatient Rutledge_L MMG MMG [id number] [facility] 2022-10-23 00:00:00 2022-10-23 00:00:00 Outpatient Rutledge_L MMG MMG [id number] [facility] 2022-10-01 00:00:00 2022-10-01 00:00:00 Outpatient Rutledge_L MMG MMG [id number] [facility] 2022-09-25 00:00:00 2022-09-25 00:00:00 Outpatient Rutledge_L MMG MMG [id number] [facility] 2022-09-01 00:00:00 2022-09-01 00:00:00 Outpatient Rutledge_L MMG MMG [id number] 1025 [facility] 2022-08-05 00:00:00 2022-08-05 00:00:00 Outpatient Rutledge_L MMG MMG [id number] [facility] 2022-06-23 00:00:00 2022-06-23 00:00:00 Outpatient Rutledge_L MMG MMG [id number] 0816 [facility] 2022-06-22 00:00:00 2022-06-22 00:00:00 Tory Fernández MD: [address] [place] [address] , Ph. [phone] Rutledge[facility]L [facility] 0815 [facility] 2022-06-16 00:00:00 2022-06-16 00:00:00 Outpatient Rutledge_L MMG MMG [id number] [facility] 2022-05-08 10:22:00 2022-05-08 10:22:00 Outpatient ANNA ORNELAS [facility] [id number] [facility] 2022-05-08 00:00:00 2022-05-08 00:00:00 Anna Gunter MD: [address] [address] , Ph. [phone] Rutledge_L MMG [facility] 07 [facility] 2022-03-18 00:00:00 2022-03-18 00:00:00 Anna Gunter MD: [address] [facility] [address] [place] [address] , Ph. [phone] Rutledge_L MMG [facility] 0511 [facility] 2021-12-23 09:19:00 2021-12-23 09:19:00 Outpatient Rutledge_L MMG MMG 5 [facility] 2021-12-18 00:00:00 2021-12-18 00:00:00 ALEXANDER Salmeron-BC: [address] [facility] [address] [place] [address] , Ph. [phone] MMG [facility] 209 [facility] 2021-12-17 04:22:00 2021-12-17 04:22:00 Outpatient Rutledge_L MMG MMG 0209 [facility] 2021-10-10 05:04:00 2021-10-10 05:04:00 Outpatient FLOR YATES [facility] [id number] [facility] 2021-09-17 00:00:00 2021-09-17 00:00:00 Patricia Thomas [facility]: [address] [facility] [address], [place] [address] , Ph. [phone] Rutledge_L MMG [facility]YN 1110 [facility] 2021-09-02 00:00:00 2021-09-02 00:00:00 Patricia Thomas [facility]: 600 [facility] [address], [place] [address] , Ph. [phone] Rutledge_L MMG [facility] O[facility]YN 1026 [facility] 2021-08-27 11:50:00 2021-08-27 11:50:00 Outpatient Rutledge_L MMG MMG 1020 [facility] 2021-08-19 14:04:00 2021-08-19 14:04:00 Outpatient GRETCHEN JHOANPATRICIA [facility] [id number] [facility] 2021-08-19 00:00:00 2021-08-19 00:00:00 Patricia Thomas [facility]: 600 [facility] [address], [place] [address] , Ph. [phone] Rutledge_L MMG [facility]YN 1012 [facility] 2021-04-22 01:40:00 2021-04-22 01:40:00 Outpatient Rutledge_L MMG MMG [id number] 0615 [facility] 2021-04-14 14:56:00 2021-04-14 14:56:00 Outpatient ANNA ORNELAS [facility] [id number] [facility] 2021-04-11 00:00:00 2021-04-11 00:00:00 Anna Gunter MD: [address] [address] , Ph. [phone] Rutledge_L MMG [facility] 0604 [facility] 2021-03-24 00:00:00 2021-03-24 00:00:00 Anna Gunter MD: [address] [address] , Ph. [phone] Rutledge_L MMG [facility] OBGY 0517 [facility] 2020-12-02 12:46:00 2020-12-02 12:46:00 Outpatient Rutledge_L MMG MMG 0125 [facility] 2020-11-27 03:56:00 2020-11-27 03:56:00 Outpatient Rutledge_L MMG MMG 0120 [facility] 2020-11-25 02:38:00 2020-11-25 02:38:00 Outpatient Rutledge_L MMG MMG [id number] [facility] 2020-09-25 02:21:00 2020-09-25 02:21:00 Outpatient Rutledge_L MMG MMG 1118 [facility] 2020-09-24 00:00:00 2020-09-24 00:00:00 Tory Fernández MD: [address] [address] , Ph. [phone] Rutledge_L MMG [facility] 1116 [facility] 2020-09-14 12:28:00 2020-09-14 12:28:00 Outpatient Rutledge_L MMG MMG 1107 [facility] 2020-08-20 00:00:00 2020-08-20 00:00:00 Yary Marinelli NP: [address] [place] [address] , Ph. [phone] Rutledge_L MM[facility] 1013 [facility] 2020-08-05 09:06:00 2020-08-05 09:06:00 Outpatient BRYAN CRUZKI [facility] [id number] [facility] 2020-08-05 00:00:00 2020-08-05 00:00:00 Yary Ashley Yves, WHNP: [address] [facility] [address] [place] [address] , Ph. [phone] Rutledge_L MM[facility] 28 [facility] 2020-05-04 11:32:00 2020-05-04 11:32:00 Outpatient Rutledge_L MMG MMG 626 [facility] 2020-04-23 00:00:00 2020-04-23 00:00:00 Yary Marinelli, WHNP: [address] [facility] [address] [place] [address] , Ph. [phone] Rutledge_L MM[facility] 2020-02-12 05:07:00 2020-02-12 05:07:00 Outpatient Rutledge_L MMG MMG [id number] [facility] 2020-01-15 10:29:00 2020-01-15 10:29:00 Outpatient Rutledge_L MMG MMG [id number] [facility] 2020-01-05 09:41:00 2020-01-05 09:41:00 Outpatient Rutledge_L MMG MMG [id number] [facility] 2020-01-04 06:57:00 2020-01-04 06:57:00 Outpatient Rutledge_L MMG MMG 226 [facility] 2020-01-02 00:00:00 2020-01-02 00:00:00 Tory Fernández MD: [address], [place] [address] , Ph. [phone] Rutledge_L MMG [facility] O[facility]YN 0225 [facility] 2019-12-19 03:47:00 2019-12-19 03:47:00 Outpatient Ravi_L MMG [facility] 0211 [facility] 2019-12-11 11:19:00 2019-12-11 11:19:00 Outpatient ARASHEdin YATES [facility] [id number] [facility] 2019-11-21 15:26:00 2019-11-21 18:03:00 Emergency ER AYAZ DURAND [facility] [id number] [facility] 2019-09-19 00:00:00 2019-09-19 00:00:00 YOLIE Roa: [address] [address] [facility], [place] [address] , Ph. [phone] MMG [facility] 1112 [facility] 2019-08-02 00:00:00 2019-08-02 00:00:00 Tory Fernández MD: [address] [facility], [place] [address] , Ph. [phone] MMG [facility] 0925 [facility] 2019-07-19 00:00:00 2019-07-19 00:00:00 Tory Fernández MD: [address], [place] [address] , Ph. [phone] MM[facility] OBGYN 0911 [facility] 2019-07-06 09:19:00 2019-07-06 09:19:00 Outpatient TORY MARLEY [facility] [id number] [facility] 2019-07-05 00:00:00 2019-07-05 00:00:00 Tory Fernández MD: [address], [place] [address] , Ph. [phone] MM[facility]YN 28 [facility] 2019-06-05 00:00:00 2019-06-05 00:00:00 Tory Fernández MD: [address] [address], [place] [address] , Ph. [phone] [facility] 29 [facility] 2019-05-08 00:00:00 2019-05-08 00:00:00 Tory Fernández MD: [address], [address], [place] [address] , Ph. [phone] MM[facility] 01 [facility] 2019-04-17 13:48:00 2019-04-17 19:06:00 Emergency ER MIKE LYONS [facility] [id number] [facility] 2019-04-10 12:12:00 2019-04-10 12:12:00 Outpatient TORY MARLEY [facility] [id number] [facility] 2019-04-10 00:00:00 2019-04-10 00:00:00 Tory Fernández MD: [address] [address], [address], [place] [address] , Ph. [phone] [facility] 03 [facility] 2019-04-04 00:00:00 2019-04-04 00:00:00 Bernardo Robles MD: [address], [address], [place] [address] , Ph. [phone] MM[facility] 527 [facility] 2019-03-14 12:48:00 2019-03-16 12:45:00 Inpatient ER RAVI TORY [facility] [id number] [facility] 2019-03-14 00:00:00 2019-03-14 00:00:00 Tory Fernández MD: [address], [address], [place] [address] , Ph. [phone] MMG [facility] [id number] 0507 [facility] 2019-02-27 20:24:00 2019-02-28 07:32:00 Emergency ER OWEN RINCON [facility] [id number] [facility] 2019-02-14 16:28:00 2019-02-16 13:00:00 Inpatient TORY MARELY [facility] [id number] [facility] 2019-02-14 00:00:00 2019-02-14 00:00:00 Tory Fernández MD: [address], [address], [place] [address] , Ph. [phone] [facility] [id number] 0409 [facility] 2019-02-07 00:00:00 2019-02-07 00:00:00 Tory Fernández MD: [address], [address], [place] [address] , Ph. [phone] MM[facility] [id number] 0402 [facility] 2019-01-26 09:24:00 2019-01-26 09:24:00 Outpatient TORY MARLEY [facility] [id number] [facility] 2019-01-26 00:00:00 2019-01-26 00:00:00 Tory Fernández MD: [address], [address], [place] [address] , Ph. [phone] MMG [facility] [address] 0321 [facility] 2019-01-24 15:52:00 2019-01-24 15:52:00 Outpatient TORY MARLEY [facility] [id number] [facility] 2019-01-03 11:55:00 2019-01-03 11:55:00 Outpatient TORY MARLEY [facility] [id number] [facility] 2019-01-03 00:00:00 2019-01-03 00:00:00 Tory Fernández MD: [address] [place] [address], [address], [place] [address] , Ph. [phone] MMG [facility] [id number] 0226 [facility] 2018-11-25 20:29:00 2018-11-25 20:29:00 Emergency ER EKATERINA FABIO [facility] [id number] [facility] 2018-01-20 16:27:00 2018-01-20 20:45:00 Emergency ER GRAZYNA PEDRAZA [facility] [id number] [facility] 2017-11-14 14:05:00 2017-11-14 16:35:00 Emergency ER MARY HOLLY [facility] [id number] [facility] 2016-11-09 21:51:00 2016-11-09 23:24:00 Emergency ER RAMIRO MAY [facility] [id number] [facility] 2016-06-26 10:24:00 2016-06-26 10:24:00 Outpatient TORY MARLEY [facility] [id number] [facility] 2015-11-14 15:25:00 2015-11-14 15:25:00 Outpatient KATELYNN PATEL [facility] [id number] [facility] 2015-11-09 16:47:00 2015-11-09 17:19:00 Emergency ER GRAZYNA PEDRAZA [facility] [id number] [facility] 2015-10-16 14:20:00 2015-10-16 15:56:00 Emergency ER LALO CLEMENT [facility] [id number] [facility] 2015-05-12 12:25:00 2015-05-12 14:27:00 Emergency ER YUNG MEDEIROS [facility] [id number] [facility] 2014-12-23 15:21:00 2014-12-23 20:00:00 Emergency ER Rene Goins [facility] [id number] [facility] 2014-09-11 10:40:00 2014-09-11 10:40:00 Outpatient TORY MARLEY [facility] [id number] [facility] 2014-09-09 14:01:00 2014-09-09 18:52:00 Emergency ER MILYTIMOTEONATALIE [facility] [id number] [facility] 2014-09-03 08:02:00 2014-09-03 10:15:00 Emergency ER NADINE PINTO [facility] [id number] [facility] 2014-08-06 13:02:00 2014-08-06 13:49:00 Emergency ER UGMAEGAN, CLEMENT [facility] [id number] [facility] 2013-03-30 12:05:00 2013-03-30 13:50:00 Emergency ER UGORELSIE, CLEMENT [facility] [id number] [facility] 2013-02-01 08:56:00 2013-02-01 09:28:00 Emergency ER OWEN RINCON [facility] [id number] [facility] 2012-09-06 20:15:00 2012-09-06 22:25:00 Emergency ER RAMIRO MAY [facility] [id number] [facility] 2012-05-18 22:48:00 2012-05-19 00:24:00 Emergency ER YUNG MEDEIROS [facility] [id number] [facility] 2011-12-23 07:58:00 2011-12-23 10:25:00 Emergency ER OWEN RINCON [facility] [id number] [facility] 2011-11-11 15:39:00 2011-11-13 10:42:00 Inpatient TORY MARLEY [facility] [id number] [facility] Results Test Description Test Time Test Comments Results Result Co mments Source [facility] panel - [id number] 10:44:10* Test Item Value Reference Range Interpretation Comme nts Leukocytes (test code = Leukocytes) Negative Nitrite (test code = Nitrite) negative Urobilinogen (test code = Urobilinogen) 1 Protein (test code = Protein) Negative pH (test code = pH) 6.0 Blood (test code = Blood) Negative Specific Morse (test code = Specific Morse) 1.025 Ketone (test code = Ketone) Negative Bilirubin (test code = Bilirubin) Negative Glucose (test code = Glucose) Negative Appearance (test code = Appearance) Clear Color (test code = Color) Yellow [facility], [id number] 10:16:15* Test Item Value Reference Range Interpretation Comme nts Test (test code = Test) negative [facility] [id number] 10:25:00* Test Item Value Reference Range Interpretation Comme nts HCG quantitative (test code = HCG quantitative) < 0.1 0-5 [facility] macro (dipstick) panel - [id number] 08:30:30* Test Item Value Reference Range Interpretation Comme nts Leukocytes (test code = Leukocytes) Negative Nitrite (test code = Nitrite) negative Urobilinogen (test code = Urobilinogen) 1 Protein (test code = Protein) Negative pH (test code = pH) 6.0 Blood (test code = Blood) Negative Specific Morse (test code = Specific Morse) 1.030 Ketone (test code = Ketone) Negative Bilirubin (test code = Bilirubin) Negative Glucose (test code = Glucose) Negative Appearance (test code = Appearance) Clear Color (test code = Color) Yellow [facility], [id number] 08:25:46* Test Item Value Reference Range Interpretation Comme [facility] Test (test code = Test) negative [facility] - cancer [facility] assessment [id number] 07:34:00 * Test Item Value Reference Range Interpretation Comme [facility] mg - cancer history assessment result (test code = mg - cancer history assessment result) meets criteria A [facility], [id number] 16:10:50* Test Item Value Reference Range Interpretation Comme [facility] Test (test code = Test) negative [facility] Group[facility]scopic observation [Identifier] in Vaginal fluid by Wet [id number] 10:17:41* Test Item Value Reference Range Interpretation Comme nts Clue Cells (test code = Clue Cells) negative WBCs (test code = WBCs) negative Trichomonads (test code = Trichomonads) negative Epithelial cells (test code = Epithelial cells) normal RBCs (test code = RBCs) positive [facility], [id number] 18:02:09* Test Item Value Reference Range Interpretation Comme [facility] Test (test code = Test) negative [facility], [id number] 11:50:35* Test Item Value Reference Range Interpretation Comme [facility] Test (test code = Test) negative [facility], [id number] 15:40:27* Test Item Value Reference Range Interpretation Comme [facility] Test (test code = Test) negative [facility], [id number] 14:38:52* Test Item Value Reference Range Interpretation Comme nts Test (test code = Test) negative [facility] Gr[facility], [id number] 14:38:52* Test Item Value Reference Range Interpretation Comme nts Test (test code = Test) negative [facility], [id number] 14:38:52* Test Item Value Reference Range Interpretation Comme nts Test (test code = Test) negative [facility] GroupCT + NG + TV, DNA, urine/[id number] 00:00:00* Test Item Value Reference Range Interpretation [...] antibiotic resistance by molecular analysis)) negative [facility] + NG + TV, DNA, urine/[id number] 00:00:00* Test Item Value Reference Range Interpretation [...] antibiotic resistance by molecular analysis)) negative [facility] + NG + TV, DNA, urine/[id number] 00:00:00* Test Item Value Reference Range Interpretation [...] to antibiotic resistance by molecular analysis)) negative [facility] [facility], + [id number] 00:00:00* Test Item Value Reference Range Interpretation Comme [facility] HPV type-detect 4.0 by real time PCR high risk subtypes only (test code = HPV type-detect 4.0 by real time PCR high risk subtypes only) not detected liquid Pap test (test code = liquid Pap test) normal [facility], + [id number] 00:00:00* Test Item Value Reference Range Interpretation Comme [facility] HPV type-detect 4.0 by real time PCR high risk subtypes only (test code = HPV type-detect 4.0 by real time PCR high risk subtypes only) not detected liquid Pap test (test code = liquid Pap test) normal [facility], + [id number] 00:00:00* Test Item Value Reference Range Interpretation Comme [facility] HPV type-detect 4.0 by real time PCR high risk subtypes only (test code = HPV type-detect 4.0 by real time PCR high risk subtypes only) not detected liquid Pap test (test code = liquid Pap test) normal [facility] W Auto Differential panel - [id number] 12:15:00 * Test Item Value Reference Range Interpretation Comme nts white blood count (test code = white blood count) 5.0 K/uL 4.0-11.5 red blood count (test code = red blood count) 4.15 M/uL 3.80-5.20 hemoglobin (test code = hemoglobin) 12.9 g/dL 10.5-15.7 hematocrit (test code = hematocrit) 40.9 % 34.0-50.0 MCV [Entitic volume] (test c ode = 22083-0) 98.6 fL 86-100 mean corpuscular hemoglobin (test [...] neutrophils/100 leukocytes in Blood (test code = 97050-7) 46.5 % 44.4-80.1 Immature granulocytes [#/vol ume] in Blood (test code = 45686-2) 0.0 K/uL 0.0-0.03 lymphocyte% (test code = lymphocyte%) 44.6 % 10.0-50.0 mono % (test code = mono %) 6.3 % 3.6-12.0 eos % (test code = eos %) 1.6 % 0.0-5.4 Basophils/100 leukocytes in Unspecified specimen (test code = 86799-9) 1.0 % 0.1-1.2 Band form neutrophils [#/vol ume] in Blood (test code = 73488-1) 2.34 K/uL 1.56-6.13 Lymphocytes [#/volume] in Unspecified specimen by Automated count (test code = 93520-6) 2.3 K/uL 1.18-3.74 mono # (test code = mono #) 0.32 K/uL 0.24-0.86 eos # (test code = eos #) 0.08 K/uL 0.04-0.36 basophil # (test code = baso damir #) 0.05 K/uL 0.01-0.08 NRBC% (test code = NRBC%) 0 /100 WBC 0-0.2 NRBC# (test code = NRBC#) 0 K/uL [facility] - Serum or [...] (test code = 6768-6) 66 U/L 35-105 [facility] W Auto Differential panel - [id number] 12:15:00 * Test Item Value Reference Range Interpretation Comme nts white blood count (test code = white blood count) 5.0 K/uL 4.0-11.5 red blood count (test code = red blood count) 4.15 M/uL 3.80-5.20 hemoglobin (test code = hemoglobin) 12.9 g/dL 10.5-15.7 hematocrit (test code = hematocrit) 40.9 % 34.0-50.0 MCV [Entitic volume] (test c ode = 21030-7) 98.6 fL 86-100 mean corpuscular hemoglobin (test [...] neutrophils/100 leukocytes in Blood (test code = 70481-1) 46.5 % 44.4-80.1 Immature granulocytes [#/vol ume] in Blood (test code = 98761-8) 0.0 K/uL 0.0-0.03 lymphocyte% (test code = lymphocyte%) 44.6 % 10.0-50.0 mono % (test code = mono %) 6.3 % 3.6-12.0 eos % (test code = eos %) 1.6 % 0.0-5.4 Basophils/100 leukocytes in Unspecified specimen (test code = 31854-3) 1.0 % 0.1-1.2 Band form neutrophils [#/vol ume] in Blood (test code = 89144-6) 2.34 K/uL 1.56-6.13 Lymphocytes [#/volume] in Unspecified specimen by Automated count (test code = 81374-4) 2.3 K/uL 1.18-3.74 mono # (test code = mono #) 0.32 K/uL 0.24-0.86 eos # (test code = eos #) 0.08 K/uL 0.04-0.36 basophil # (test code = baso damir #) 0.05 K/uL 0.01-0.08 NRBC% (test code = NRBC%) 0 /100 WBC 0-0.2 NRBC# (test code = NRBC#) 0 K/uL [facility] - Serum or [...] (test code = 6768-6) 66 U/L 35-105 [facility] W Auto Differential panel - [id number] 12:15:00 * Test Item Value Reference Range Interpretation Comme [facility] white blood count (test code = white blood count) 5.0 K/uL 4.0-11.5 red blood count (test code = red blood count) 4.15 M/uL 3.80-5.20 hemoglobin (test code = hemoglobin) 12.9 g/dL 10.5-15.7 hematocrit (test code = hematocrit) 40.9 % 34.0-50.0 MCV [Entitic volume] (test c ode = 03400-7) 98.6 fL 86-100 mean corpuscular hemoglobin (test [...] neutrophils/100 leukocytes in Blood (test code = 86701-6) 46.5 % 44.4-80.1 Immature granulocytes [#/vol ume] in Blood (test code = 95024-1) 0.0 K/uL 0.0-0.03 lymphocyte% (test code = lymphocyte%) 44.6 % 10.0-50.0 mono % (test code = mono %) 6.3 % 3.6-12.0 eos % (test code = eos %) 1.6 % 0.0-5.4 Basophils/100 leukocytes in Unspecified specimen (test code = 11487-3) 1.0 % 0.1-1.2 Band form neutrophils [#/vol ume] in Blood (test code = 53268-5) 2.34 K/uL 1.56-6.13 Lymphocytes [#/volume] in Unspecified specimen by Automated count (test code = 59500-8) 2.3 K/uL 1.18-3.74 mono # (test code = mono #) 0.32 K/uL 0.24-0.86 eos # (test code = eos #) 0.08 K/uL 0.04-0.36 basophil # (test code = baso admir #) 0.05 K/uL 0.01-0.08 NRBC% (test code = NRBC%) 0 /100 WBC 0-0.2 NRBC# (test code = NRBC#) 0 K/uL [facility] - Serum or [...] (test code = 6768-6) 66 U/L 35-105 [facility] HospitalReagin Ab [Presence] in Serum by [id number] 00:00:00* Test Item Value Reference Range Interpretation Comme nts Reagin Ab [Presence] in Seru m by RPR (test code = 39781-2) nonreactive nonreactive [facility] GroupDifferential panel, method unspecified - [id number] 00:00:00NeutrophilsBandLymphocyteAtypical LymphMonocyteEosinophilBasophilMetamyelocyteMyelocytePromyelocyteBlastsNucleated Red Blood CellAbs Neutrophil Count (Man)Abs Lymph Count (Man)Abs Monocyte Count (Man)Abs Eosinophil Count (Man)Abs Basophil Count (Man)Platelet EstimatePlatelet MorphologyPolychromasiaMacrocytosisHypersegmented Polys [facility] GroupThyrotropin [Units/volume] in Serum or [id number] 00:00:00* Test Item Value Reference Range Interpretation Comme nts Thyrotropin [Units/volume] i n Serum or Plasma (test code = 3016-3) 0.95 uIU/mL 0.36-3.74 [facility] HospitalThyroxine (T4) free [Mass/volume] in Serum or Plasma 2021-08-19 00:00:00* Test Item Value Reference Range Interpretation Comme nts free T4 (test code = free T4) 0.96 NG/dL 0.93-1.7 [facility]HIV 1+2 Ab [Presence] in [id number] 00:00:00HIV P24 AgHIV-1/2 [facility]Miss[facility] CenterHepatitis B virus surface Ag [Presence] in [id number] 00:00:00* Test Item Value Reference Range Interpretation Comme nts .hepatitis B surface antigen (test code = .hepatitis B surface antigen) negative negative [facility] GroupReagin Ab [Presence] in Serum by [id number] 00:00:00* Test Item Value Reference Range Interpretation Comme nts Reagin Ab [Presence] in Seru m by RPR (test code = 65589-7) nonreactive nonreactive [facility] GroupDifferential panel, method unspecified - [id number] 00:00:00NeutrophilsBandLymphocyteAtypical LymphMonocyteEosinophilBasophilMetamyelocyteMyelocytePromyelocyteBlastsNucleated Red Blood CellAbs Neutrophil Count (Man)Abs Lymph Count (Man)Abs Monocyte Count (Man)Abs Eosinophil Count (Man)Abs Basophil Count (Man)Platelet EstimatePlatelet MorphologyPolychromasiaMacrocytosisHypersegmented Polys [facility] GroupThyrotropin [Units/volume] in Serum or [id number] 00:00:00* Test Item Value Reference Range Interpretation Comme nts Thyrotropin [Units/volume] i n Serum or Plasma (test code = 3016-3) 0.95 uIU/mL 0.36-3.74 [facility] HospitalThyroxine (T4) free [Mass/volume] in Serum or Plasma 2021-08-19 00:00:00* Test Item Value Reference Range Interpretation Comme nts free T4 (test code = free T4) 0.96 NG/dL 0.93-1.7 [facility] GroupHIV 1+2 Ab [Presence] in [id number] 00:00:00HIV P24 AgHIV-1/2 AbMataMiss[facility] CenterHepatitis B virus surface Ag [Presence] in [id number] 00:00:00* Test Item Value Reference Range Interpretation Comme nts .hepatitis B surface antigen (test code = .hepatitis B surface antigen) negative negative [facility] HospitalReagin Ab [Presence] in Serum by [id number] 00:00:00* Test Item Value Reference Range Interpretation Comme nts Reagin Ab [Presence] in Seru m by RPR (test code = 30090-9) nonreactive nonreactive [facility] HospitalDifferential panel, method unspecified - [id number] 00:00:00NeutrophilsBandLymphocyteAtypical LymphMonocyteEosinophilBasophilMetamyelocyteMyelocytePromyelocyteBlastsNucleated Red Blood CellAbs Neutrophil Count (Man)Abs Lymph Count (Man)Abs Monocyte Count (Man)Abs Eosinophil Count (Man)Abs Basophil Count (Man)Platelet EstimatePlatelet MorphologyPolychromasiaMacrocytosisHypersegmented Polys [facility] GroupThyrotropin [Units/volume] in Serum or [id number] 00:00:00* Test Item Value Reference Range Interpretation Comme nts Thyrotropin [Units/volume] i n Serum or Plasma (test code = 3016-3) 0.95 uIU/mL 0.36-3.74 [facility] HospitalThyroxine (T4) free [Mass/volume] in Serum or Plasma 2021-08-19 00:00:00* Test Item Value Reference Range Interpretation Comme nts free T4 (test code = free T4) 0.96 NG/dL 0.93-1.7 [facility]HIV 1+2 Ab [Presence] in [id number] 00:00:00HIV P24 AgHIV-1/2 AbMataMiss[facility] CenterHepatitis B virus surface Ag [Presence] in [id number] 00:00:00* Test Item Value Reference Range Interpretation Comme nts .hepatitis B surface antigen (test code = .hepatitis B surface antigen) negative negative [facility] HospitalUrinalysis macro (dipstick) panel - [id number] 16:06:55* Test Item Value Reference Range Interpretation Comme nts Leukocytes (test code = Leukocytes) Negative Nitrite (test code = Nitrite) negative Urobilinogen (test code = Urobilinogen) .2 Protein (test code = Protein) Negative pH (test code = pH) 7.0 Blood (test code = Blood) Non-Hemolyzed: Trace Specific Morse (test code = Specific Morse) 1.020 Ketone (test code = Ketone) Negative Bilirubin (test code = Bilirubin) Negative Glucose (test code = Glucose) Negative Appearance (test code = Appearance) Clear Color (test code = Color) Yellow [facility] test, [id number] 16:22:27* Test Item Value Reference Range Interpretation Comme nts Test (test code = Test) negative [facility] test, [id number] 16:22:27* Test Item Value Reference Range Interpretation Comme nts Test (test code = Test) negative [facility] HospitalUrinalysis macro (dipstick) panel - [id number] 16:22:10* Test Item Value Reference Range Interpretation Comme nts Leukocytes (test code = Leukocytes) Negative Nitrite (test code = Nitrite) negative Urobilinogen (test code = Urobilinogen) .2 Protein (test code = Protein) Negative pH (test code = pH) 7.0 Blood (test code = Blood) Negative Specific Morse (test code = Specific Morse) 1.025 Ketone (test code = Ketone) Negative Bilirubin (test code = Bilirubin) Negative Glucose (test code = Glucose) Negative Appearance (test code = Appearance) Clear Color (test code = Color) Yellow [facility] HospitalUrinalysis macro (dipstick) panel - [id number] 16:22:10* Test Item Value Reference Range Interpretation Comme nts Leukocytes (test code = Leukocytes) Negative Nitrite (test code = Nitrite) negative Urobilinogen (test code = Urobilinogen) .2 Protein (test code = Protein) Negative pH (test code = pH) 7.0 Blood (test code = Blood) Negative Specific Morse (test code = Specific Morse) 1.025 Ketone (test code = Ketone) Negative Bilirubin (test code = Bilirubin) Negative Glucose (test code = Glucose) Negative Appearance (test code = Appearance) Clear Color (test code = Color) Yellow [facility] HospitalReagin Ab [Presence] in Serum by [id number] 06:56:00* Test Item Value Reference Range Interpretation Comme nts Reagin Ab [Presence] in Seru m by RPR (test code = 93020-1) nonreactive nonreactive [facility] HospitalHIV 1+2 Ab [Presence] in [id number] 06:56:00HIV P24 AgHIV-1/2 AbMatagoTippah County HospitalHepatitis B virus surface Ag [Presence] in [id number] 06:56:00* Test Item Value Reference Range Interpretation Comme nts .hepatitis B surface antigen (test code = .hepatitis B surface antigen) negative negative [facility] HospitalHepatitis C virus RNA [Units/volume] (viral load) in Serum or Plasma by Probe with signal [id number] 06:56:00* Test Item Value Reference Range Interpretation Comme nts hepatitis C RNA CHICO,qual (te st code = hepatitis C RNA CHICO,qual) negative negative [facility] Grouppregnancy test, [id number] 11:12:00* Test Item Value Reference Range Interpretation Comme nts Test (test code = Test) negative [facility] THIRD [id number] 17:41:00 RUN DATE: 08/31/19 [facility] PAGE 1 RUN TIME: 914 Specimen Inquiry RUN USER: INTERFACE --------- ---PATIENT: ANJELICA NAVARRO LOC: Aundrea[place]ICH U #: [id number] AGE/SX: 29/F ROOM: 2023 RE08/02/19REG DR: Isaiah Chase MD : 90 BED: A DIS: 08/30/19 STATUS: DIS IN TLOC: SPEC #: [id number] RECD: 08/26/19 STATUS: SANDY REQ #: [id number] ILENE: 08/26/19- [facility] DR: Isaiah Chase MD ENTERED: 08/28/19 SP TYPE: PLACIII OTHR DR: ORDERED: LEVEL V SURGICA CODES: [id number] - PLACENTA, NOS PROCEDURES: LEVEL V SURGICA (Incomplete) TISSUES: PLACENTA, NOS - PLACENTA CLINICAL HISTORY 28 year old, 35.5 weeks, [id number], section, abnormal cord doppler, severe IUGR, prematurity, non-reassuring monitoring, increased SD ratios (kr) FINAL DIAGNOSIS Placenta, 35.5 weeks gestational age, section: - third trimester placenta, 300 gms (10th percentile) - meconium macrophages within feta l membranes - patchy villous edema - marginally inserted trivascular umbilical cord and membranes free of inflammation CPT code(s): 03486 [facility] 08/30/19 GROSS DESCRIPTION The specimen [...] in greatest dimension CONTINUED ON NEXT PAGE RUN DATE: 08/31/19 [facility] PAGE 2 RUN TIME: 914 Specimen Inquiry RUN USER: INTERFACE SPEC #: [id number] PATIENT: ANJELICA NAVARRO #[id number] (Continued) GROSS DESCRIPTION (Continued) Accessory lobes: None Maternal surface: Lobulated and intact Parenchyma: Red, beefy, and spongy with peripheral fibrosis Parenchyma lesions: None Cassettes: A1 through A4 hernan 08/28/19 @ 1207 Signed Gina Hurtado MD 08/30/19 1741 END OF REPORT CBC W/AUTO DIFF 2019-08-27 08:08:00* Test Item Value Reference Range Interpretation Comme nts WHITE BLOOD CELL (test code = WBC) 8.0 K/mm3 6.6-12.1 Results verified by repeat analysis RED BLOOD CELL (test code = RBC) 3.12 M/mm3 3.45-5.01 L HEMOGLOBIN (test code = HGB) 10.1 g/dL 10.7-13.9 L HEMATOCRIT (test code = HCT) 30.9 % 32.1-42.1 L MEAN CELL VOLUME (test code = MCV) 99 fL 84.1-94.8 H MEAN CELL HGB (test code = MCH) 32.4 pg 27-35 N MEAN CELL HGB CONCETRATION (test code = MCHC) 32.7 gm/dL 32.2-34.1 N RED CELL DISTRIBUTION WIDTH (test code = RDW) 12.1 % 12.4-16.5 L PLATELET COUNT (test code = PLT) 188 K/mm3 133-385 N IMMATURE PLATELET FRACTION (test code = IPF) 0.0 % 0.0-10.8 N MEAN PLATELET VOLUME (test code = MPV) 11.6 fl 9.1-12.7 N NEUTROPHIL % (test code = NT%) 76.8 % 56.5-79.4 N LYMPHOCYTE % (test code = LY%) 14.2 % 14.3-34.3 L MONOCYTE % (test code = MO%) 7.3 % 5.1-10.4 N EOSINOPHIL % (test code = EO%) 0.9 % 0.1-3.0 N BASOPHIL % (test code = BA%) 0.3 % 0.1-1.0 N NEUTROPHIL # (test code = NT#) 6.1 K/mm3 LYMPHOCYTE # (test code = LY#) 1.1 K/mm3 MONOCYTE # (test code = MO#) 0.6 K/mm3 EOSINOPHIL # (test code = EO#) 0.07 K/mm3 BASOPHIL # (test code = BA#) 0.0 K/mm3 RBC MORPHOLOGY REQUIRED (test code = RBCM) NORMAL NORMAL PLATELET MORPHOLOGY REQUIRED (test code = PLTMR) NORMAL NORMAL CBC W/AUTO [id number] 05:33:00* Test Item Value Reference Range Interpretation Comme nts WHITE BLOOD CELL (test code = WBC) [...] pg 27-35 N MEAN CELL HGB CONCETRATION ( test code = MCHC) 32.4 gm/dL 32.2-34.1 N RED CELL DISTRIBUTION WIDTH (test code = RDW) 12.6 % 12.4-16.5 N PLATELET COUNT (test code = PLT) 194 K/mm3 133-385 N MEAN PLATELET VOLUME (test c ode = MPV) 11.0 fl 9.1-12.7 N NEUTROPHIL % (test code = NT%) 58.3 [...] = BA#) 0.0 K/mm3 RBC MORPHOLOGY REQUIRED (ferdinand t code = RBCM) NORMAL NORMAL PLATELET MORPHOLOGY REQUIRED (test code = PLTMR) NORMAL NORMAL CBC W/AUTO [id number] 05:29:00* Test Item Value Reference Range Interpretation Comme nts WHITE BLOOD CELL (test code = WBC) [...] pg 27-35 N MEAN CELL HGB CONCETRATION ( test code = MCHC) 32.4 gm/dL 32.2-34.1 N RED CELL DISTRIBUTION WIDTH (test code = RDW) 12.4 % 12.4-16.5 N PLATELET COUNT (test code = PLT) 211 K/mm3 133-385 N IMMATURE PLATELET FRACTION ( test code = IPF) 0.0 % 0.0-10.8 N MEAN PLATELET VOLUME (test c ode = MPV) 10.7 fl 9.1-12.7 N NEUTROPHIL % (test code = NT%) 65.1 [...] = BA#) 0.0 K/mm3 RBC MORPHOLOGY REQUIRED (ferdinand t code = RBCM) NORMAL NORMAL PLATELET MORPHOLOGY REQUIRED (test code = PLTMR) NORMAL NORMAL URINALYSIS [id number] 22:37:00* Test Item Value Reference Range Interpretation Comme nts UA COLOR (test code = COLU) YELLOW YELLOW UA APPEARANCE (test code = APPU) CLEAR CLEAR UA GLUCOSE DIPSTICK (test code = DGLUU) NEGATIVE NEG UA BILIRUBIN DIPSTICK (test code = BILU) NEGATIVE NEG UA KETONE DIPSTICK (test cod e = KETU) NEGATIVE NEG UA SPECIFIC GRAVITY (test code = SGU) 1.013 1.001-1.035 N UA BLOOD DIPSTICK (test code = MALIHA) NEG NEG UA PH DIPSTICK (test code = BRIAN) 7.0 5-9 UA PROTEIN DIPSTICK (test code = PROU) NEGATIVE NEG UA UROBILINIOGEN DIPSTICK (test code = URO) NEGATIVE mg/dL NEG UA NITRITE DIPSTICK (test code = SAVGAE) NEG NEG UA LEUKOCYTE ESTERASE DIPSTICK (test code = LEUU) NEG NEG UA WBC (test code = WBCU) 0-2 #/hpf NONE SEEN UA RBC (test code = RBCU) NONE SEEN #/hpf NONE SEEN UA EPITHELIAL CELLS (test code = EPIU) RARE #/HPF RARE-FEW UA BACTERIA (test code = BACU) RARE /HPF RARE-FEW UA MUCUS (test code = MUCU) RARE NONE SEEN CBC W/AUTO [id number] 18:07:00* Test Item Value Reference Range Interpretation Comme nts WHITE BLOOD CELL (test code = WBC) [...] pg 27-35 N MEAN CELL HGB CONCETRATION ( test code = MCHC) 32.7 gm/dL 32.2-34.1 N RED CELL DISTRIBUTION WIDTH (test code = RDW) 12.0 % 12.4-16.5 L PLATELET COUNT (test code = PLT) 216 K/mm3 133-385 N IMMATURE PLATELET FRACTION ( test code = IPF) 0.0 % 0.0-10.8 N MEAN PLATELET VOLUME (test c ode = MPV) 11.2 fl 9.1-12.7 N NEUTROPHIL % (test code = NT%) 82.5 [...] = BA#) 0.0 K/mm3 RBC MORPHOLOGY REQUIRED (ferdinand t code = RBCM) NORMAL NORMAL PLATELET MORPHOLOGY REQUIRED (test code = PLTMR) NORMAL NORMAL AG HEPATITIS B [id number] 00:46:00* Test Item Value Reference Range Interpretation Comme nts AG HEPATITIS B SURFACE (test code = HBSAG) NONREACTIVE NONREACTIVE IS CONSENT FORM SIGNED FOR HIV TESTING? YAB HEPATITIS C [id number] 00:46:00* Test Item Value Reference Range Interpretation Comme nts AB HEPATITIS C (test code = HCVAB) NONREACTIVE NONREACTIVE SIGNAL TO CUTOFF (test code = CUTOFF) 0.12 <0.80 N IS CONSENT FORM SIGNED FOR HIV TESTING? YRUBELLA [id number] 00:46:00* Test Item Value Reference Range Interpretation Comme nts RUBELLA SCREEN (test code = RUBSC) 78.5 IUnit/ml Results >10.0IUn its/ml are considered positive inaccordance with the CLSI guidelines and based on the WHO International Standard for Anti-Rubella serum as anindicator of immune status and a breakpoint to detect mostseropositive persons. IS CONSENT FORM SIGNED FOR HIV TESTING? YAB [id number] 00:46:00* Test Item Value Reference Range Interpretation Comme nts AB TREPONEMA (test code = TREPAB) NONREACTIVE NONREACTIVE IS CONSENT FORM SIGNED FOR HIV TESTING? GRETCHENB HIV 1 00:46:00* Test Item Value Reference Range Interpretation Comme nts AB HIV 1 2 (test code = BSC37GQ) NONREACTIVE NONREACTIVE Done by [employer] HIV Ag/Ab Combo Screen IS CONSENT FORM SIGNED FOR HIV TESTING? YAG HEPATITIS B [id number] 00:10:00* Test Item Value Reference Range Interpretation Comme nts AG HEPATITIS B SURFACE (test code = HBSAG) NONREACTIVE NONREACTIVE IS CONSENT FORM SIGNED FOR HIV TESTING? YAB HEPATITIS C [id number] 00:10:00* Test Item Value Reference Range Interpretation Comme nts AB HEPATITIS C (test code = HCVAB) NONREACTIVE SIGNAL TO CUTOFF (test code = CUTOFF) <0.80 IS CONSENT FORM SIGNED FOR HIV TESTING? YRUBELLA [id number] 00:10:00* Test Item Value Reference Range Interpretation Comme nts RUBELLA SCREEN (test code = RUBSC) 78.5 IUnit/ml Results >10.0IUn its/ml are considered positive inaccordance with the CLSI guidelines and based on the WHO International Standard for Anti-Rubella serum as anindicator of immune status and a breakpoint to detect mostseropositive persons. IS CONSENT FORM SIGNED FOR HIV TESTING? YAB [id number] 00:10:00* Test Item Value Reference Range Interpretation Comme nts AB TREPONEMA (test code = TREPAB) NONREACTIVE NONREACTIVE IS CONSENT FORM SIGNED FOR HIV TESTING? YAB HIV 1 00:10:00* Test Item Value Reference Range Interpretation Comme nts AB HIV 1 2 (test code = QOM28YS) NONREACTIVE IS CONSENT FORM SIGNED FOR HIV TESTING? YCBC W/AUTO [id number] 23:05:00* Test Item Value Reference Range Interpretation Comme nts WHITE BLOOD CELL (test code = WBC) [...] pg 27-35 N MEAN CELL HGB CONCETRATION ( test code = MCHC) 33.1 gm/dL 32.2-34.1 N RED CELL DISTRIBUTION WIDTH (test code = RDW) 12.2 % 12.4-16.5 L PLATELET COUNT (test code = PLT) 202 K/mm3 133-385 N IMMATURE PLATELET FRACTION ( test code = IPF) 0.0 % 0.0-10.8 N MEAN PLATELET VOLUME (test c ode = MPV) 11.3 fl 9.1-12.7 N NEUTROPHIL % (test code = NT%) 65.9 [...] = BA#) 0.0 K/mm3 RBC MORPHOLOGY REQUIRED (ferdinand t code = RBCM) NORMAL NORMAL PLATELET MORPHOLOGY REQUIRED (test code = PLTMR) NORMAL NORMAL Biophysical profile panel [id number] 09:13:00* Test Item Value Reference Range Interpretation Comme nts Amniotic Fluid Index (test c ode = Amniotic Fluid Index) 2 Tone (test code = Tone) 2 Breathing (test code = Breathing) 2 Movement (test code = Movement) [facility] [id number] 09:13:00* Test Item Value Reference Range Interpretation Comme nts Amniotic Fluid Index (test c ode = Amniotic Fluid Index) 2 Tone (test code = Tone) 2 Breathing (test code = Breathing) 2 Movement (test code = Movement) 2 [facility] [id number] 09:13:00* Test Item Value Reference Range Interpretation Comme nts Amniotic Fluid Index (test c ode = Amniotic Fluid Index) 2 Tone (test code = Tone) 2 Breathing (test code = Breathing) 2 Movement (test code = Movement) 2 [facility] macro (dipstick) panel - [id number] 09:21:00* Test Item Value Reference Range Interpretation Comme nts Leukocytes (test code = Leukocytes) Trace Nitrite (test code = Nitrite) negative Urobilinogen (test code = Urobilinogen) .2 Protein (test code = Protein) Negative pH (test code = pH) 7.0 Blood (test code = Blood) Negative Specific Morse (test code = Specific Morse) 1.020 Ketone (test code = Ketone) Negative Bilirubin (test code = Bilirubin) Negative Glucose (test code = Glucose) Negative Appearance (test code = Appearance) Clear Color (test code = Color) Dark Yellow [facility] GroupUrinalysis macro (dipstick) panel - [id number] 11:07:00* Test Item Value Reference Range Interpretation Comme nts Leukocytes (test code = Leukocytes) Negative Nitrite (test code = Nitrite) negative Urobilinogen (test code = Urobilinogen) 1 Protein (test code = Protein) Negative pH (test code = pH) 7.0 Blood (test code = Blood) Negative Specific Morse (test code = Specific Morse) 1.020 Ketone (test code = Ketone) Negative Bilirubin (test code = Bilirubin) Negative Glucose (test code = Glucose) Negative Appearance (test code = Appearance) Clear Color (test code = Color) Yellow [facility] GroupCandida sp DNA [Presence] in Vaginal fluid by Probe and target amplification [id number] 00:00:00* Test Item Value Reference Range Interpretation [...] luis m glabrata by real-time PCR) negative [facility] Group[facility] sp DNA [Presence] in Vaginal fluid by Probe and target amplification [id number] 00:00:00* Test Item Value Reference Range Interpretation [...] luis m glabrata by real-time PCR) negative [facility] GroupCandida sp DNA [Presence] in Vaginal fluid by Probe and target amplification [id number] 00:00:00* Test Item Value Reference Range Interpretation [...] luis m glabrata by real-time PCR) [facility] [#/volume] in [id number] 00:00:00* Test Item Value Reference Range Interpretation [...] = pseudomonas aeruginosa by real-time PCR) negative [facility], [id number] 00:00:00* Test Item Value Reference Range Interpretation [...] panel) by real time PCR) see comment [facility] [#/volume] in [id number] 00:00:00* Test Item Value Reference Range Interpretation [...] = pseudomonas aeruginosa by real-time PCR) negative [facility] panel, [id number] 00:00:00* Test Item Value Reference Range Interpretation [...] panel) by real time PCR) see comment [facility] GroupCol[facility] count [#/volume] in [id number] 00:00:00* Test Item Value Reference Range Interpretation [...] = pseudomonas aeruginosa by real-time PCR) negative [facility], [id number] 00:00:00* Test Item Value Reference Range Interpretation [...] panel) by real time PCR) see comment [facility] [id number] 09:45:00Results [facility] [id number] 09:45:00Results [facility] [id number] 09:45:00Results [facility] Differential panel - [id number] 04:12:00 * Test Item Value Reference Range Interpretation Comme nts white blood count (test code = white blood count) 7.2 K/uL 4.0-11.5 red blood count (test code = red blood count) 3.69 M/uL 3.80-5.20 L Hemoglobin [Mass/volume] in Blood (test code = 718-7) 11.5 g/dL 10.5-15.7 hematocrit (test code = hematocrit) 35.0 % 34.0-50.0 Erythrocyte mean corpuscular volume [Entitic volume] (test code = 07115-0) 94.8 fL 78-98 Erythrocyte mean corpuscular hemoglobin [Entitic mass] (test code = 13646-1) 31.3 pg 26.2-33.4 mean corpuscular HGB conc (t est code = mean corpuscular HGB conc) 33.0 g/dL 31.5-36.2 red cell distribution width (test code = red cell distribution width) 11.3 % 11.5-15.5 L Platelets [#/volume] in Bloo d (test code = 99384-5) 221 K/uL 137-338 Platelet mean volume [Entiti c volume] in Blood (test code = 59996-5) 8.5 fL 8.4-11.8 Neutrophils.band form/100 leukocytes in Blood (test code = 33220-1) 95.1 % 44.4-80.1 Lymphocytes/100 leukocytes i n Body fluid (test code = 44268-3) 4.0 % 10.0-50.0 L Monocytes/100 leukocytes in Blood by Automated count (test code = 5905-5) 0.6 % 3.6-12.04 L Eosinophils/100 leukocytes i n Blood by Automated count (test code = 713-8) 0.1 % 0.0-5.41 Basophils/100 leukocytes in Unspecified specimen (test code = 70740-9) 0.2 % 0.0-0.79 [facility], [id number] 04:12:00 NeutrophilsBandLymphocyteAtypical LymphMonocyteEosinophilBasophilPlatelet EstimatePlatelet MorphologyTarget CellsToxic GranulationToxic Vacuolation [facility] Differential panel - [id number] 04:12:00 * Test Item Value Reference Range Interpretation Comme nts white blood count (test code = white blood count) 7.2 K/uL 4.0-11.5 red blood count (test code = red blood count) 3.69 M/uL 3.80-5.20 L Hemoglobin [Mass/volume] in Blood (test code = 718-7) 11.5 g/dL 10.5-15.7 hematocrit (test code = hematocrit) 35.0 % 34.0-50.0 Erythrocyte mean corpuscular volume [Entitic volume] (test code = 27902-9) 94.8 fL 78-98 Erythrocyte mean corpuscular hemoglobin [Entitic mass] (test code = 63530-2) 31.3 pg 26.2-33.4 mean corpuscular HGB conc (t est code = mean corpuscular HGB conc) 33.0 g/dL 31.5-36.2 red cell distribution width (test code = red cell distribution width) 11.3 % 11.5-15.5 L Platelets [#/volume] in Bloo d (test code = 90958-7) 221 K/uL 137-338 Platelet mean volume [Entiti c volume] in Blood (test code = 57074-8) 8.5 fL 8.4-11.8 Neutrophils.band form/100 leukocytes in Blood (test code = 22258-5) 95.1 % 44.4-80.1 Lymphocytes/100 leukocytes i n Body fluid (test code = 31431-1) 4.0 % 10.0-50.0 L Monocytes/100 leukocytes in Blood by Automated count (test code = 5905-5) 0.6 % 3.6-12.04 L Eosinophils/100 leukocytes i n Blood by Automated count (test code = 713-8) 0.1 % 0.0-5.41 Basophils/100 leukocytes in Unspecified specimen (test code = 89705-0) 0.2 % 0.0-0.79 [facility], [id number] 04:12:00 NeutrophilsBandLymphocyteAtypical LymphMonocyteEosinophilBasophilPlatelet EstimatePlatelet MorphologyTarget CellsToxic GranulationToxic Vacuolation [facility] HospitalCBC W Auto Differential panel - [id number] 04:12:00 * Test Item Value Reference Range Interpretation Comme nts white blood count (test code = white blood count) 7.2 K/uL 4.0-11.5 red blood count (test code = red blood count) 3.69 M/uL 3.80-5.20 L Hemoglobin [Mass/volume] in Blood (test code = 718-7) 11.5 g/dL 10.5-15.7 hematocrit (test code = hematocrit) 35.0 % 34.0-50.0 Erythrocyte mean corpuscular volume [Entitic volume] (test code = 82728-7) 94.8 fL 78-98 Erythrocyte mean corpuscular hemoglobin [Entitic mass] (test code = 67750-2) 31.3 pg 26.2-33.4 mean corpuscular HGB conc (t est code = mean corpuscular HGB conc) 33.0 g/dL 31.5-36.2 red cell distribution width (test code = red cell distribution width) 11.3 % 11.5-15.5 L Platelets [#/volume] in Bloo d (test code = 93639-3) 221 K/uL 137-338 Platelet mean volume [Entiti c volume] in Blood (test code = 84193-6) 8.5 fL 8.4-11.8 Neutrophils.band form/100 leukocytes in Blood (test code = 11123-7) 95.1 % 44.4-80.1 Lymphocytes/100 leukocytes i n Body fluid (test code = 29222-2) 4.0 % 10.0-50.0 L Monocytes/100 leukocytes in Blood by Automated count (test code = 5905-5) 0.6 % 3.6-12.04 L Eosinophils/100 leukocytes i n Blood by Automated count (test code = 713-8) 0.1 % 0.0-5.41 Basophils/100 leukocytes in Unspecified specimen (test code = 16667-5) 0.2 % 0.0-0.79 [facility], [id number] 04:12:00 NeutrophilsBandLymphocyteAtypical LymphMonocyteEosinophilBasophilPlatelet EstimatePlatelet MorphologyTarget CellsToxic GranulationToxic Vacuolation [facility] W Auto Differential panel - [id number] 03:30:00 * Test Item Value Reference Range [...] corpuscular volume [Entitic volume] (test code = 68042-4) 95.8 fL 78-98 Erythrocyte mean corpuscular hemoglobin [Entitic mass] (test code = 62000-7) 31.2 pg 26.2-33.4 mean corpuscular HGB conc (t est code = mean corpuscular HGB conc) 32.6 g/dL 31.5-36.2 red cell distribution width (test code = red cell distribution width) 11.2 % 11.5-15.5 L Platelets [#/volume] in Bloo d (test code = 61763-9) 184 K/uL 137-338 Platelet mean volume [Entiti c volume] in Blood (test code = 72150-0) 8.4 fL 8.4-11.8 Neutrophils.band form/100 leukocytes in Blood (test code = 68965-1) 59.6 % 44.4-80.1 Lymphocytes/100 leukocytes i n Body fluid (test code = 20307-4) 31.9 % 10.0-50.0 Monocytes/100 leukocytes in Blood by Automated count (test code = 5905-5) 5.9 % 3.6-12.04 Eosinophils/100 leukocytes i n Blood by Automated count (test code = 713-8) 1.0 % 0.0-5.41 Basophils/100 leukocytes in Unspecified specimen (test code = 76623-1) 1.5 % 0.0-0.79 [facility], [id number] 03:30:00 NeutrophilsLymphocyteMonocytePlatelet EstimatePlatelet MorphologyMaCopiah County Medical CenterComprehensive metabolic 2000 panel - Serum or [id number] 03:30:00* Test Item Value Reference Range Interpretation [...] (test code = 6768-6) 52 U/L 35-105 [facility] HospitalCB [facility] Auto Differential panel - [id number] 03:30:00 * Test Item Value Reference Range [...] corpuscular volume [Entitic volume] (test code = 83233-0) 95.8 fL 78-98 Erythrocyte mean corpuscular hemoglobin [Entitic mass] (test code = 93367-3) 31.2 pg 26.2-33.4 mean corpuscular HGB conc (t est code = mean corpuscular HGB conc) 32.6 g/dL 31.5-36.2 red cell distribution width (test code = red cell distribution width) 11.2 % 11.5-15.5 L Platelets [#/volume] in Bloo d (test code = 49469-8) 184 K/uL 137-338 Platelet mean volume [Entiti c volume] in Blood (test code = 72313-6) 8.4 fL 8.4-11.8 Neutrophils.band form/100 leukocytes in Blood (test code = 74022-7) 59.6 % 44.4-80.1 Lymphocytes/100 leukocytes i n Body fluid (test code = 66010-3) 31.9 % 10.0-50.0 Monocytes/100 leukocytes in Blood by Automated count (test code = 5905-5) 5.9 % 3.6-12.04 Eosinophils/100 leukocytes i n Blood by Automated count (test code = 713-8) 1.0 % 0.0-5.41 Basophils/100 leukocytes in Unspecified specimen (test code = 58268-3) 1.5 % 0.0-0.79 [facility], [id number] 03:30:00 NeutrophilsLymphocyteMonocytePlatelet EstimatePlatelet MorphologyMaCopiah County Medical CenterComprehensive metabolic 2000 panel - Serum or [id number] 03:30:00* Test Item Value Reference Range Interpretation [...] (test code = 6768-6) 52 U/L 35-105 [facility] W Auto Differential panel - [id number] 03:30:00 * Test Item Value Reference Range [...] corpuscular volume [Entitic volume] (test code = 05240-7) 95.8 fL 78-98 Erythrocyte mean corpuscular hemoglobin [Entitic mass] (test code = 56559-3) 31.2 pg 26.2-33.4 mean corpuscular HGB conc (t est code = mean corpuscular HGB conc) 32.6 g/dL 31.5-36.2 red cell distribution width (test code = red cell distribution width) 11.2 % 11.5-15.5 L Platelets [#/volume] in Bloo d (test code = 17880-4) 184 K/uL 137-338 Platelet mean volume [Entiti c volume] in Blood (test code = 72182-2) 8.4 fL 8.4-11.8 Neutrophils.band form/100 leukocytes in Blood (test code = 53236-2) 59.6 % 44.4-80.1 Lymphocytes/100 leukocytes i n Body fluid (test code = 54851-0) 31.9 % 10.0-50.0 Monocytes/100 leukocytes in Blood by Automated count (test code = 5905-5) 5.9 % 3.6-12.04 Eosinophils/100 leukocytes i n Blood by Automated count (test code = 713-8) 1.0 % 0.0-5.41 Basophils/100 leukocytes in Unspecified specimen (test code = 98068-9) 1.5 % 0.0-0.79 [facility]different[facility], [id number] 03:30:00 NeutrophilsLymphocyteMonocytePlatelet EstimatePlatelet MorphologyMataMississippi Baptist Medical CenterComprehensive metabolic 2000 panel - Serum or [id number] 03:30:00* Test Item Value Reference Range Interpretation [...] (test code = 6768-6) 52 U/L 35-105 [facility] W Auto Differential panel - [id number] 12:57:00 * Test Item Value Reference Range Interpretation Comme nts white blood count (test code = white blood count) 4.5 K/uL 4.0-11.5 red blood count (test code = red blood count) 4.04 M/uL 3.80-5.20 Hemoglobin [Mass/volume] in Blood (test code = 718-7) 12.7 g/dL 10.5-15.7 hematocrit (test code = hematocrit) 38.3 % 34.0-50.0 Erythrocyte mean corpuscular volume [Entitic volume] (test code = 67109-4) 94.8 fL 78-98 Erythrocyte mean corpuscular hemoglobin [Entitic mass] (test code = 37334-3) 31.5 pg 26.2-33.4 mean corpuscular HGB conc (t est code = mean corpuscular HGB conc) 33.2 g/dL 31.5-36.2 red cell distribution width (test code = red cell distribution width) 11.2 % 11.5-15.5 L Platelets [#/volume] in Bloo d (test code = 35144-8) 261 K/uL 137-338 Platelet mean volume [Entiti c volume] in Blood (test code = 14699-8) 9.0 fL 8.4-11.8 Neutrophils.band form/100 leukocytes in Blood (test code = 97408-6) 67.1 % 44.4-80.1 Lymphocytes/100 leukocytes i n Body fluid (test code = 50456-9) 24.5 % 10.0-50.0 Monocytes/100 leukocytes in Blood by Automated count (test code = 5905-5) 6.1 % 3.6-12.04 Eosinophils/100 leukocytes i n Blood by Automated count (test code = 713-8) 0.4 % 0.0-5.41 Basophils/100 leukocytes in Unspecified specimen (test code = 35940-0) 1.9 % 0.0-0.79 [facility], [id number] 12:57:00 NeutrophilsLymphocyteMonocytePlatelet EstimatePlatelet MorphologyMaCopiah County Medical CenterComprehensive metabolic 2000 panel - Serum or [id number] 12:57:00* Test Item Value Reference Range Interpretation [...] (test code = 6768-6) 71 U/L 35-105 [facility] W Auto Differential panel - [id number] 12:57:00 * Test Item Value Reference Range Interpretation Comme nts white blood count (test code = white blood count) 4.5 K/uL 4.0-11.5 red blood count (test code = red blood count) 4.04 M/uL 3.80-5.20 Hemoglobin [Mass/volume] in Blood (test code = 718-7) 12.7 g/dL 10.5-15.7 hematocrit (test code = hematocrit) 38.3 % 34.0-50.0 Erythrocyte mean corpuscular volume [Entitic volume] (test code = 70371-4) 94.8 fL 78-98 Erythrocyte mean corpuscular hemoglobin [Entitic mass] (test code = 73246-2) 31.5 pg 26.2-33.4 mean corpuscular HGB conc (t est code = mean corpuscular HGB conc) 33.2 g/dL 31.5-36.2 red cell distribution width (test code = red cell distribution width) 11.2 % 11.5-15.5 L Platelets [#/volume] in Bloo d (test code = 46666-9) 261 K/uL 137-338 Platelet mean volume [Entiti c volume] in Blood (test code = 18320-8) 9.0 fL 8.4-11.8 Neutrophils.band form/100 leukocytes in Blood (test code = 78547-6) 67.1 % 44.4-80.1 Lymphocytes/100 leukocytes i n Body fluid (test code = 72780-5) 24.5 % 10.0-50.0 Monocytes/100 leukocytes in Blood by Automated count (test code = 5905-5) 6.1 % 3.6-12.04 Eosinophils/100 leukocytes i n Blood by Automated count (test code = 713-8) 0.4 % 0.0-5.41 Basophils/100 leukocytes in Unspecified specimen (test code = 66247-0) 1.9 % 0.0-0.79 [facility], [id number] 12:57:00 NeutrophilsLymphocyteMonocytePlatelet EstimatePlatelet MorphologyMataMississippi Baptist Medical CenterComprehensive metabolic 2000 panel - Serum or [id number] 12:57:00* Test Item Value Reference Range Interpretation [...] (test code = 6768-6) 71 U/L 35-105 [facility] W Auto Differential panel - [id number] 12:57:00 * Test Item Value Reference Range Interpretation Comme nts white blood count (test code = white blood count) 4.5 K/uL 4.0-11.5 red blood count (test code = red blood count) 4.04 M/uL 3.80-5.20 Hemoglobin [Mass/volume] in Blood (test code = 718-7) 12.7 g/dL 10.5-15.7 hematocrit (test code = hematocrit) 38.3 % 34.0-50.0 Erythrocyte mean corpuscular volume [Entitic volume] (test code = 97199-4) 94.8 fL 78-98 Erythrocyte mean corpuscular hemoglobin [Entitic mass] (test code = 94067-8) 31.5 pg 26.2-33.4 mean corpuscular HGB conc (t est code = mean corpuscular HGB conc) 33.2 g/dL 31.5-36.2 red cell distribution width (test code = red cell distribution width) 11.2 % 11.5-15.5 L Platelets [#/volume] in Bloo d (test code = 33879-9) 261 K/uL 137-338 Platelet mean volume [Entiti c volume] in Blood (test code = 95883-2) 9.0 fL 8.4-11.8 Neutrophils.band form/100 leukocytes in Blood (test code = 76668-2) 67.1 % 44.4-80.1 Lymphocytes/100 leukocytes i n Body fluid (test code = 90139-6) 24.5 % 10.0-50.0 Monocytes/100 leukocytes in Blood by Automated count (test code = 5905-5) 6.1 % 3.6-12.04 Eosinophils/100 leukocytes i n Blood by Automated count (test code = 713-8) 0.4 % 0.0-5.41 Basophils/100 leukocytes in Unspecified specimen (test code = 62090-9) 1.9 % 0.0-0.79 [facility], [id number] 12:57:00 NeutrophilsLymphocyteMonocytePlatelet EstimatePlatelet MorphologyMaCopiah County Medical CenterComprehensive metabolic 2000 panel - Serum or [id number] 12:57:00* Test Item Value Reference Range Interpretation [...] (test code = 6768-6) 71 U/L 35-105 [facility] HospitalUrinalysis macro (dipstick) panel - [id number] 12:22:43* Test Item Value Reference Range Interpretation Comme nts Leukocytes (test code = Leukocytes) Trace Nitrite (test code = Nitrite) positive Urobilinogen (test code = Urobilinogen) 8 Protein (test code = Protein) 100 pH (test code = pH) 6.0 Blood (test code = Blood) Negative Specific Morse (test code = Specific Morse) 1.020 Ketone (test code = Ketone) Large (80) Bilirubin (test code = Bilirubin) Large Glucose (test code = Glucose) Negative Appearance (test code = Appearance) Clear Color (test code = Color) Dark Yellow [facility] HospitalUrinalysis macro (dipstick) panel - [id number] 12:22:43* Test Item Value Reference Range Interpretation Comme nts Leukocytes (test code = Leukocytes) Trace Nitrite (test code = Nitrite) positive Urobilinogen (test code = Urobilinogen) 8 Protein (test code = Protein) 100 pH (test code = pH) 6.0 Blood (test code = Blood) Negative Specific Morse (test code = Specific Morse) 1.020 Ketone (test code = Ketone) Large (80) Bilirubin (test code = Bilirubin) Large Glucose (test code = Glucose) Negative Appearance (test code = Appearance) Clear Color (test code = Color) Dark Yellow [facility] HospitalUrinalysis macro (dipstick) panel - [id number] 12:22:43* Test Item Value Reference Range Interpretation Comme nts Leukocytes (test code = Leukocytes) Trace Nitrite (test code = Nitrite) positive Urobilinogen (test code = Urobilinogen) 8 Protein (test code = Protein) 100 pH (test code = pH) 6.0 Blood (test code = Blood) Negative Specific Morse (test code = Specific Morse) 1.020 Ketone (test code = Ketone) Large (80) Bilirubin (test code = Bilirubin) Large Glucose (test code = Glucose) Negative Appearance (test code = Appearance) Clear Color (test code = Color) Dark Yellow [facility] HospitalUrinalysis macro (dipstick) panel - [id number] 12:22:43* Test Item Value Reference Range Interpretation Comme nts Leukocytes (test code = Leukocytes) Trace Nitrite (test code = Nitrite) positive Urobilinogen (test code = Urobilinogen) 8 Protein (test code = Protein) 100 pH (test code = pH) 6.0 Blood (test code = Blood) Negative Specific Morse (test code = Specific Morse) 1.020 Ketone (test code = Ketone) Large (80) Bilirubin (test code = Bilirubin) Large Glucose (test code = Glucose) Negative Appearance (test code = Appearance) Clear Color (test code = Color) Dark Yellow [facility] HospitalUrinalysis macro (dipstick) panel - [id number] 12:22:43* Test Item Value Reference Range Interpretation Comme nts Leukocytes (test code = Leukocytes) Trace Nitrite (test code = Nitrite) positive Urobilinogen (test code = Urobilinogen) 8 Protein (test code = Protein) 100 pH (test code = pH) 6.0 Blood (test code = Blood) Negative Specific Morse (test code = Specific Morse) 1.020 Ketone (test code = Ketone) Large (80) Bilirubin (test code = Bilirubin) Large Glucose (test code = Glucose) Negative Appearance (test code = Appearance) Clear Color (test code = Color) Dark Yellow [facility] HospitalHemoglobin and Hematocrit panel - [id number] 06:06:00* Test Item Value Reference Range Interpretation Comme nts Hemoglobin [Mass/volume] in Blood (test code = 718-7) 13.1 g/dL 10.5-15.7 hematocrit (test code = hematocrit) 39.2 % 34.0-50.0 [facility]Com[facility] 2000 panel - Serum or [...] (test code = 6768-6) 54 U/L 35-105 [facility] HospitalHemoglobin [facility] Hematocrit panel - [id number] 06:06:00* Test Item Value Reference Range Interpretation Comme nts Hemoglobin [Mass/volume] in Blood (test code = 718-7) 13.1 g/dL 10.5-15.7 hematocrit (test code = hematocrit) 39.2 % 34.0-50.0 [facility]Com[facility] 2000 panel - Serum or [...] (test code = 6768-6) 54 U/L 35-105 [facility] HospitalHem[facility] Hematocrit panel - [id number] 06:06:00* Test Item Value Reference Range Interpretation Comme nts Hemoglobin [Mass/volume] in Blood (test code = 718-7) 13.1 g/dL 10.5-15.7 hematocrit (test code = hematocrit) 39.2 % 34.0-50.0 [facility]Com[facility] 2000 panel - Serum or [...] (test code = 6768-6) 54 U/L 35-105 [facility] HospitalHemoglobin [facility] Hematocrit panel - [id number] 08:02:00* Test Item Value Reference Range Interpretation Comme nts Hemoglobin [Mass/volume] in Blood (test code = 718-7) 11.9 g/dL 10.5-15.7 hematocrit (test code = hematocrit) 34.5 % 34.0-50.0 [facility]Com[facility] 2000 panel - Serum or [...] (test code = 6768-6) 48 U/L 35-105 [facility] HospitalH[facility] Hematoc[facility] panel - [id number] 08:02:00* Test Item Value Reference Range Interpretation Comme nts Hemoglobin [Mass/volume] in Blood (test code = 718-7) 11.9 g/dL 10.5-15.7 hematocrit (test code = hematocrit) 34.5 % 34.0-50.0 [facility]Com[facility] 2000 panel - Serum or [...] (test code = 6768-6) 48 U/L 35-105 [facility] HospitalH[facility] Hematoc[facility] panel - [id number] 08:02:00* Test Item Value Reference Range Interpretation Comme nts Hemoglobin [Mass/volume] in Blood (test code = 718-7) 11.9 g/dL 10.5-15.7 hematocrit (test code = hematocrit) 34.5 % 34.0-50.0 [facility]Com[facility] 2000 panel - Serum or [...] (test code = 6768-6) 48 U/L 35-105 [facility] W Auto Differential panel - [id number] 02:57:00 * Test Item Value Reference Range Interpretation Comme nts white blood count (test code = white blood count) 5.1 K/uL 4.0-11.5 red blood count (test code = red blood count) 4.29 M/uL 3.80-5.20 Hemoglobin [Mass/volume] in Blood (test code = 718-7) 14.0 g/dL 10.5-15.7 hematocrit (test code = hematocrit) 41.3 % 34.0-50.0 Erythrocyte mean corpuscular volume [Entitic volume] (test code = 36400-4) 96.3 fL 78-98 Erythrocyte mean corpuscular hemoglobin [Entitic mass] (test code = 51376-1) 32.6 pg 26.2-33.4 mean corpuscular HGB conc (t est code = mean corpuscular HGB conc) 33.9 g/dL 31.5-36.2 red cell distribution width (test code = red cell distribution width) 10.3 % 11.5-15.5 L Platelets [#/volume] in Bloo d (test code = 56518-8) 216 K/uL 137-338 Platelet mean volume [Entiti c volume] in Blood (test code = 61823-9) 9.2 fL 8.4-11.8 Neutrophils.band form/100 leukocytes in Blood (test code = 84886-2) 69.8 % 44.4-80.1 Lymphocytes/100 leukocytes i n Body fluid (test code = 51928-5) 22.0 % 10.0-50.0 Monocytes/100 leukocytes in Blood by Automated count (test code = 5905-5) 6.1 % 3.6-12.04 Eosinophils/100 leukocytes i n Blood by Automated count (test code = 713-8) 0.3 % 0.0-5.41 Basophils/100 leukocytes in Blood by Automated count (test code = 706-2) 1.8 % 0.0-0.79 [facility]different[facility], [id number] 02:57:00 NeutrophilsBandLymphocyteAtypical LymphMonocyteEosinophilBasophilPlatelet EstimatePlatelet MorphologyPoikilocytosisTarget CellsHypersegmented PolysRouleauToxic VacuolationSmudge CellsMaCopiah County Medical CenterComprehensive metabolic 2000 panel - Serum or [id number] 02:57:00* Test Item Value Reference Range Interpretation [...] (test code = 6768-6) 57 U/L 35-105 [facility] W Auto Differential panel - [id number] 02:57:00 * Test Item Value Reference Range Interpretation Comme nts white blood count (test code = white blood count) 5.1 K/uL 4.0-11.5 red blood count (test code = red blood count) 4.29 M/uL 3.80-5.20 Hemoglobin [Mass/volume] in Blood (test code = 718-7) 14.0 g/dL 10.5-15.7 hematocrit (test code = hematocrit) 41.3 % 34.0-50.0 Erythrocyte mean corpuscular volume [Entitic volume] (test code = 45402-5) 96.3 fL 78-98 Erythrocyte mean corpuscular hemoglobin [Entitic mass] (test code = 22495-0) 32.6 pg 26.2-33.4 mean corpuscular HGB conc (t est code = mean corpuscular HGB conc) 33.9 g/dL 31.5-36.2 red cell distribution width (test code = red cell distribution width) 10.3 % 11.5-15.5 L Platelets [#/volume] in Bloo d (test code = 29634-8) 216 K/uL 137-338 Platelet mean volume [Entiti c volume] in Blood (test code = 98512-9) 9.2 fL 8.4-11.8 Neutrophils.band form/100 leukocytes in Blood (test code = 99070-6) 69.8 % 44.4-80.1 Lymphocytes/100 leukocytes i n Body fluid (test code = 77961-2) 22.0 % 10.0-50.0 Monocytes/100 leukocytes in Blood by Automated count (test code = 5905-5) 6.1 % 3.6-12.04 Eosinophils/100 leukocytes i n Blood by Automated count (test code = 713-8) 0.3 % 0.0-5.41 Basophils/100 leukocytes in Blood by Automated count (test code = 706-2) 1.8 % 0.0-0.79 [facility], mncvm1036-87-13 02:57:00 NeutrophilsBandLymphocyteAtypical LymphMonocyteEosinophilBasophilPlatelet EstimatePlatelet MorphologyPoikilocytosisTarget CellsHypersegmented PolysRouleauToxic VacuolationSmudge CellsMaCopiah County Medical CenterComprehensive metabolic 2000 panel - Serum or Zfkkzy0708-70-72 02:57:00* Test Item Value Reference Range Interpretation [...] (test code = 6768-6) 57 U/L 35-105 [facility] W Auto Differential panel - Pkzki5259-50-93 02:57:00 * Test Item Value Reference Range Interpretation Comme nts white blood count (test code = white blood count) 5.1 K/uL 4.0-11.5 red blood count (test code = red blood count) 4.29 M/uL 3.80-5.20 Hemoglobin [Mass/volume] in Blood (test code = 718-7) 14.0 g/dL 10.5-15.7 hematocrit (test code = hematocrit) 41.3 % 34.0-50.0 Erythrocyte mean corpuscular volume [Entitic volume] (test code = 07881-4) 96.3 fL 78-98 Erythrocyte mean corpuscular hemoglobin [Entitic mass] (test code = 14942-4) 32.6 pg 26.2-33.4 mean corpuscular HGB conc (t est code = mean corpuscular HGB conc) 33.9 g/dL 31.5-36.2 red cell distribution width (test code = red cell distribution width) 10.3 % 11.5-15.5 L Platelets [#/volume] in Bloo d (test code = 46625-5) 216 K/uL 137-338 Platelet mean volume [Entiti c volume] in Blood (test code = 32396-9) 9.2 fL 8.4-11.8 Neutrophils.band form/100 leukocytes in Blood (test code = 62496-3) 69.8 % 44.4-80.1 Lymphocytes/100 leukocytes i n Body fluid (test code = 42991-0) 22.0 % 10.0-50.0 Monocytes/100 leukocytes in Blood by Automated count (test code = 5905-5) 6.1 % 3.6-12.04 Eosinophils/100 leukocytes i n Blood by Automated count (test code = 713-8) 0.3 % 0.0-5.41 Basophils/100 leukocytes in Blood by Automated count (test code = 706-2) 1.8 % 0.0-0.79 [facility], aqqhf4215-72-08 02:57:00 NeutrophilsBandLymphocyteAtypical LymphMonocyteEosinophilBasophilPlatelet EstimatePlatelet MorphologyPoikilocytosisTarget CellsHypersegmented PolysRouleauToxic VacuolationSmudge CellsMaCopiah County Medical CenterComprehensive metabolic 2000 panel - Serum or Wfdxog0849-22-09 02:57:00* Test Item Value Reference Range Interpretation [...] (test code = 6768-6) 57 U/L 35-105 [facility] W Auto Differential panel - Lilrk4153-67-54 07:30:00 * Test Item Value Reference Range Interpretation Comme nts white blood count (test code = white blood count) 5.0 K/uL 4.0-11.5 red blood count (test code = red blood count) 3.92 M/uL 3.80-5.20 Hemoglobin [Mass/volume] in Blood (test code = 718-7) 12.9 g/dL 10.5-15.7 hematocrit (test code = hematocrit) 38.7 % 34.0-50.0 Erythrocyte mean corpuscular volume [Entitic volume] (test code = 24837-6) 98.7 fL 78-98 H Erythrocyte mean corpuscular hemoglobin [Entitic mass] (test code = 31438-9) 33.0 pg 26.2-33.4 mean corpuscular HGB conc (t est code = mean corpuscular HGB conc) 33.4 g/dL 31.5-36.2 red cell distribution width (test code = red cell distribution width) 11.3 % 11.5-15.5 L Platelets [#/volume] in Bloo d (test code = 21800-3) 207 K/uL 137-338 Platelet mean volume [Entiti c volume] in Blood (test code = 60510-8) 7.7 fL 8.4-11.8 L Neutrophils.band form/100 leukocytes in Blood (test code = 43671-1) 54.8 % 44.4-80.1 Lymphocytes/100 leukocytes i n Body fluid (test code = 37306-0) 35.5 % 10.0-50.0 Monocytes/100 leukocytes in Blood by Automated count (test code = 5905-5) 6.5 % 3.6-12.04 Eosinophils/100 leukocytes i n Blood by Automated count (test code = 713-8) 1.4 % 0.0-5.41 Basophils/100 leukocytes in Blood by Automated count (test code = 706-2) 1.7 % 0.0-0.79 H [facility] Groupdifferential panel, dvkgl0390-65-14 07:30:00 NeutrophilsBandLymphocyteMonocytePlatelet EstimateMaCopiah County Medical CenterRubella virus IgG Ab [Titer] in Eyxko2659-10-30 07:30:00* Test Item Value Reference Range Interpretation Comme nts Rubella virus IgG Ab [Units/volume] in Serum by Immunoassay (test code = 5334-8) 106.7 [IU]/mL [facility] HospitalHIV 1+2 Ab [Presence] in Nphym2061-73-08 07:30:00HIV P24 AgHIV-1/2 AbMaCopiah County Medical CenterABO & Rh group [Type] in Lemwp7567-01-63 07:30:00* Test Item Value Reference Range Interpretation Comme nts Rh [Type] in Blood (test cod e = 02851-4) 4+ ABO and Rh group panel - Blo od (test code = 12409-4) Ab positive [facility] GroupBlood group antibody screen [Presence] in Serum or Plasma 2019-01-26 07:30:00* Test Item Value Reference Range Interpretation Comme nts Blood group antibody screen [Presence] in Serum or Plasma (test code = 890-4) negative [facility] GroupReagin Ab [Presence] in Serum by FQY2759-11-10 07:30:00* Test Item Value Reference Range Interpretation Comme nts Reagin Ab [Presence] in Seru m by RPR (test code = 60367-4) nonreactive nonreactive [facility] GroupHepatitis B virus surface Ag [Presence] in Serum 2019-01-26 07:30:00* Test Item Value Reference Range Interpretation Comme nts .hepatitis B surface antigen (test code = .hepatitis B surface antigen) negative negative [facility] GroupBacteria identified in Urine by Htpihrs2941-85-34 07:30:00* Test Item Value Reference Range Interpretation Comme nts Bacteria identified in Urine by Culture (test code = 630-4) no growth at 48 hrs. [facility] GroupCBC W Auto Differential panel - Gyywp2574-44-29 07:30:00 * Test Item Value Reference Range Interpretation Comme nts white blood count (test code = white blood count) 5.0 K/uL 4.0-11.5 red blood count (test code = red blood count) 3.92 M/uL 3.80-5.20 Hemoglobin [Mass/volume] in Blood (test code = 718-7) 12.9 g/dL 10.5-15.7 hematocrit (test code = hematocrit) 38.7 % 34.0-50.0 Erythrocyte mean corpuscular volume [Entitic volume] (test code = 10406-9) 98.7 fL 78-98 H Erythrocyte mean corpuscular hemoglobin [Entitic mass] (test code = 89114-8) 33.0 pg 26.2-33.4 mean corpuscular HGB conc (t est code = mean corpuscular HGB conc) 33.4 g/dL 31.5-36.2 red cell distribution width (test code = red cell distribution width) 11.3 % 11.5-15.5 L Platelets [#/volume] in Bloo d (test code = 89441-4) 207 K/uL 137-338 Platelet mean volume [Entiti c volume] in Blood (test code = 74882-0) 7.7 fL 8.4-11.8 L Neutrophils.band form/100 leukocytes in Blood (test code = 42742-4) 54.8 % 44.4-80.1 Lymphocytes/100 leukocytes i n Body fluid (test code = 88276-1) 35.5 % 10.0-50.0 Monocytes/100 leukocytes in Blood by Automated count (test code = 5905-5) 6.5 % 3.6-12.04 Eosinophils/100 leukocytes i n Blood by Automated count (test code = 713-8) 1.4 % 0.0-5.41 Basophils/100 leukocytes in Blood by Automated count (test code = 706-2) 1.7 % 0.0-0.79 H [facility] Groupdifferential panel, exhvj2201-47-66 07:30:00 NeutrophilsBandLymphocyteMonocytePlatelet EstimateMatagorda Medical GroupRubella virus IgG Ab [Titer] in Kwhie5702-00-91 07:30:00* Test Item Value Reference Range Interpretation Comme nts Rubella virus IgG Ab [Units/volume] in Serum by Immunoassay (test code = 5334-8) 106.7 [IU]/mL [facility] GroupHIV 1+2 Ab [Presence] in Guvhs0364-35-99 07:30:00HIV P24 AgHIV-1/2 AbMatagorda Medical GroupABO & Rh group [Type] in Dkmzi3559-97-81 07:30:00* Test Item Value Reference Range Interpretation Comme nts Rh [Type] in Blood (test cod e = 20077-2) 4+ ABO and Rh group panel - Blo od (test code = 80707-2) Ab positive [facility] GroupBlood group antibody screen [Presence] in Serum or Plasma 2019-01-26 07:30:00* Test Item Value Reference Range Interpretation Comme nts Blood group antibody screen [Presence] in Serum or Plasma (test code = 890-4) negative [facility] GroupReagin Ab [Presence] in Serum by MOW3570-13-54 07:30:00* Test Item Value Reference Range Interpretation Comme nts Reagin Ab [Presence] in Seru m by RPR (test code = 53106-4) nonreactive nonreactive [facility] GroupHepatitis B virus surface Ag [Presence] in Serum 2019-01-26 07:30:00* Test Item Value Reference Range Interpretation Comme nts .hepatitis B surface antigen (test code = .hepatitis B surface antigen) negative negative [facility] GroupBacteria identified in Urine by Ojdymsw1483-59-80 07:30:00* Test Item Value Reference Range Interpretation Comme nts Bacteria identified in Urine by Culture (test code = 630-4) no growth at 48 hrs. [facility] GroupCBC W Auto Differential panel - Zxqjh5559-06-30 07:30:00 * Test Item Value Reference Range Interpretation Comme nts white blood count (test code = white blood count) 5.0 K/uL 4.0-11.5 red blood count (test code = red blood count) 3.92 M/uL 3.80-5.20 Hemoglobin [Mass/volume] in Blood (test code = 718-7) 12.9 g/dL 10.5-15.7 hematocrit (test code = hematocrit) 38.7 % 34.0-50.0 Erythrocyte mean corpuscular volume [Entitic volume] (test code = 47901-7) 98.7 fL 78-98 H Erythrocyte mean corpuscular hemoglobin [Entitic mass] (test code = 99956-0) 33.0 pg 26.2-33.4 mean corpuscular HGB conc (t est code = mean corpuscular HGB conc) 33.4 g/dL 31.5-36.2 red cell distribution width (test code = red cell distribution width) 11.3 % 11.5-15.5 L Platelets [#/volume] in Bloo d (test code = 88024-4) 207 K/uL 137-338 Platelet mean volume [Entiti c volume] in Blood (test code = 12490-7) 7.7 fL 8.4-11.8 L Neutrophils.band form/100 leukocytes in Blood (test code = 99002-9) 54.8 % 44.4-80.1 Lymphocytes/100 leukocytes i n Body fluid (test code = 24991-0) 35.5 % 10.0-50.0 Monocytes/100 leukocytes in Blood by Automated count (test code = 5905-5) 6.5 % 3.6-12.04 Eosinophils/100 leukocytes i n Blood by Automated count (test code = 713-8) 1.4 % 0.0-5.41 Basophils/100 leukocytes in Blood by Automated count (test code = 706-2) 1.7 % 0.0-0.79 H [facility] Groupdifferential panel, tbweb8415-63-98 07:30:00 NeutrophilsBandLymphocyteMonocytePlatelet EstimateMatagorda Medical GroupRubella virus Ab [Titer] in Uhekr5690-80-74 07:30:00* Test Item Value Reference Range Interpretation Comme nts Rubella virus IgG Ab [Units/volume] in Serum by Immunoassay (test code = 5334-8) 106.7 [IU]/mL [facility] GroupHIV 1+2 Ab [Presence] in Jhhez1847-41-75 07:30:00HIV P24 AgHIV-1/2 AbMatagorda Medical GroupABO & Rh group [Type] in Zpkyi5784-46-17 07:30:00* Test Item Value Reference Range Interpretation Comme nts Rh [Type] in Blood (test cod e = 98602-5) 4+ ABO and Rh group panel - Blo od (test code = 50851-2) Ab positive [facility] GroupBlood group antibody screen [Presence] in Serum or Plasma 2019-01-26 07:30:00* Test Item Value Reference Range Interpretation Comme nts Blood group antibody screen [Presence] in Serum or Plasma (test code = 890-4) negative [facility] GroupReagin Ab [Presence] in Serum by KKZ2593-67-84 07:30:00* Test Item Value Reference Range Interpretation Comme nts Reagin Ab [Presence] in Seru m by RPR (test code = 77548-3) nonreactive nonreactive [facility] GroupHepatitis B virus surface Ag [Presence] in Serum 2019-01-26 07:30:00* Test Item Value Reference Range Interpretation Comme nts .hepatitis B surface antigen (test code = .hepatitis B surface antigen) negative negative [facility] HospitalBacteria identified in Urine by Hpdegdm2939-74-95 07:30:00* Test Item Value Reference Range Interpretation Comme nts Bacteria identified in Urine by Culture (test code = 630-4) no growth at 48 hrs. [facility] HospitalChoriogonadotropin.beta subunit [Units/volume] in Serum or Wojxfq8541-52-35 02:05:00* Test Item Value Reference Range Interpretation Comme nts HCG quantitative (test code = HCG quantitative) 4590.0 mIU/mL 0-5 H [facility] HospitalChoriogonadotropin.beta subunit [Units/volume] in Serum or Zikgal0804-77-14 02:05:00* Test Item Value Reference Range Interpretation Comme nts HCG quantitative (test code = HCG quantitative) 4590.0 mIU/mL 0-5 H [facility] HospitalChoriogonadotropin.beta subunit [Units/volume] in Serum or Gpvxhw0958-63-65 02:05:00* Test Item Value Reference Range Interpretation Comme nts HCG quantitative (test code = HCG quantitative) 4590.0 mIU/mL 0-5 H [facility] W Auto Differential panel - Wrwdt4693-35-20 11:00:00 * Test Item Value Reference Range Interpretation Comme nts white blood count (test code = white blood count) 4.9 K/uL 4.0-11.5 red blood count (test code = red blood count) 4.02 M/uL 3.80-5.20 Hemoglobin [Mass/volume] in Blood (test code = 718-7) 13.0 g/dL 10.5-15.7 hematocrit (test code = hematocrit) 40.1 % 34.0-50.0 Erythrocyte mean corpuscular volume [Entitic volume] (test code = 50819-1) 99.7 fL 78-98 H Erythrocyte mean corpuscular hemoglobin [Entitic mass] (test code = 09828-7) 32.4 pg 26.2-33.4 mean corpuscular HGB conc (t est code = mean corpuscular HGB conc) 32.5 g/dL 31.5-36.2 red cell distribution width (test code = red cell distribution width) 11.4 % 11.5-15.5 L Platelets [#/volume] in Bloo d (test code = 23311-5) 212 K/uL 137-338 Platelet mean volume [Entiti c volume] in Blood (test code = 86445-1) 8.4 fL 8.4-11.8 Neutrophils.band form/100 leukocytes in Blood (test code = 88185-0) 53.6 % 44.4-80.1 Lymphocytes/100 leukocytes i n Body fluid (test code = 47556-7) 37.4 % 10.0-50.0 Monocytes/100 leukocytes in Blood by Automated count (test code = 5905-5) 5.5 % 3.6-12.04 Eosinophils/100 leukocytes i n Blood by Automated count (test code = 713-8) 1.9 % 0.0-5.41 Basophils/100 leukocytes in Blood by Automated count (test code = 706-2) 1.6 % 0.0-0.79 [facility]different[facility], ohjta1608-14-23 11:00:00 NeutrophilsBandLymphocyteMonocyteEosinophilBasophilPlatelet EstimatePlatelet MorphologyPolychromasiaHypochromasiaPoikilocytosisBasophilic StipplingAnisocytosisMicrocytosisMacrocytosisOvalocytesStomatocyteBurr CellsAcanthocytesMatagoUAB [facility] GroupReagin Ab [Presence] in Serum by RPR 2019-01-03 11:00:00* Test Item Value Reference Range Interpretation Comme nts Reagin Ab [Presence] in Seru m by RPR (test code = 46717-8) nonreactive nonreactive [facility] HospitalComprehensive metabolic 2000 panel - Serum or [...] (test code = 6768-6) 59 U/L 35-105 [facility] HospitalHIV 1+2 Ab [Presence] in Xdzdr7778-67-76 11:00:00HIV P24 AgHIV-1/2 AbMataMississippi Baptist Medical CenterHepatitis B virus surface Ag [Presence] in Fkbda8893-16-58 11:00:00* Test Item Value Reference Range Interpretation Comme nts .hepatitis B surface antigen (test code = .hepatitis B surface antigen) negative negative [facility] Notes Date/Time Note Provider Source 2023-12-07 14:20:25 YLzwKtHYsE+8hrEJe5pp OoQ7hVHjwFWcV8 FH8FTe29snG93futpy1+fEWcf6is4O8350 -01-30T14:20:25 Chief ComplaintPatient presents withCoughCough for 1 [place] [address]-8Sqivs IncrIY6980-81-77L90:21:45Nurse NoteTXT1.2.840.803790.1.13.131.2.7 .2.436304|[id number] for patient waty43383-3Scccm NoteLNNARRATIVEFormatted C-CDA narrative [id number] Nona GALLOWAY II[facility] [place], [place] [id number] LMW9218-14-92T59:21:451.2.840.1143 50.1.72.3.15|1.2.840.684222.1.13.1 31.2.7.2.727879_396424738 Marce Castellano MA, II [facility] 2019-08-29 21:34:00 XFnibqbgvmp41523555k 9yPsSdM775gJJZ jbzMNWtMeXFJv3e+aIVoSrcb8qtTLkuKHY 6iDL56QmVPiTteT6304-99-51Q41:34:00 [facility] ([facility])OB Disch PostpartumREPORT#:[id number] REPORT STATUS: SignedDATE:08/29/19 TIME: 2133 PATIENT: ANJELICA NAVARRO UNIT #: [id number]#: [id number] ROOM/BED: 2023-ADOB: [birth year] AGE: 29 SEX: F ATTEND: Isaiah Chase [facility] AUTHOR: Isaiah Chase MD * ALL edits or amendments must be made on the electronic/computer document * Subjective SubjectivePatient reports: Patient reports: Yes: normal lochia, pain management effective, tolerating po well, voiding well, flatus. No: complaints. Comments:seen around 8am Objective GeneralVS:Vital Signs Date Temp Pulse Resp B/P B/P Mean Pulse Ox FiO2 08/29 98.2-99.0 89-108 18- 113-131/76-81 88.2-97.7 Last Documented: Result Date Time B/P 113/77 08/29 1715 Temp 98.2 08/29 1715 Pulse 89 08/29 1715 Resp 20 08/29 1715 B/P Mean 88.2 08/29 0412 Pulse Ox 100 08/26 2015 Patient Weight Weight (lb): 128Weight (oz): Weight (kg): 58.06 Physical ExamNeuro: Exam: alert, oriented x3, normal speechAbdomen: post gravid, soft, no abnormal tendernessIncision site: well approximated edges, nicolle intact, dry, no drainage, no inflammationUterus: involution appropriate, non-tenderFundus: firm, below the umbilicus, non-tender Discharge Summary Discharge SummaryHospital course: nml postop/postpart care, ADMITTED FOR IUGR, received celestoneand she was watched inpatient due to high sd and abnormal dopplers, also periodic prolonged decels, then had primary cdPlan: routine care, discharge tomorrowDischarge meds:Continue taking these medications:SCOPOLAMINE (TRANSDERM-SCOP 1.5 MG) 1.5 MG/72 HR PATCH 1 PATCH TRANSDERMAL ONE TIME ONLY. Start taking the following new medications:DOCUSATE SODIUM (COLACE) 100 MG CAP 100 MILLIGRAM ORAL 0900 2100. as needed for CONSTIPATION Qty = 20 No Refills IBUPROFEN (MOTRIN) 600 MG TAB 600 MILLIGRAM ORAL EVERY 6 HOURS NEEDED. as needed for PAIN SCALE 1-3 (USE 1ST) Qty = 30 No Refills oxyCODONE HCL/ACETAMINOPHEN (PERCOCET 5/325 MG) 1 TAB TAB 1 TABLET ORAL EVERY 6 HOURS NEEDED. as needed for SEVERE PAIN (SCALE 7 - 10) Qty = 30 No Refills Discharge diagnosis: s/p CD for IUGR, periodic decels, and IUGR and abnormal Dopplers, anemia from acute blood loss due to surgery at [address] [facility] #:[id number] OF REPORT OBObstetric rjit0852-25-09W34:34:00F.HOSQ77241 [id number] for patient loalAPZGRLKSJRPKLG6890-33-50G36:37 :33 [facility] 2019-08-29 19:07:00 TKqkrphpjdo61596220c 4dOxb21Q9J/aeO yZCtVxyC72g0y6IvhI+bjtQSLDjLAwF8+/ 0Gn7isFK9FnxEmK0836-99-19W57:07:00 [id number] [place] [address] PATIENT NAME: ANJELICA NAVARRO ADMIT DATE: 08/02/19ACCOUNT NO: [id number] ROOM NO: .2023 AGE: 29 SEX: F ADMITTING PHYSICIAN: Isaiah Chase MD ATTENDING PHYSICIAN: Isaiah Chase MD OPERATION DATE: 08/26/2019 PREOPERATIVE DIAGNOSES:1. Intrauterine at 35 plus weeks.2. Intrauterine growth restriction.3. Abnormal Dopplers.4. Periodic prolonged decelerations. POSTOPERATIVE DIAGNOSES:1. Intrauterine at 35 plus weeks.2. Intrauterine growth restriction.3. Abnormal Dopplers.4. Periodic prolonged decelerations. PROCEDURE: Primary low segment section via Pfannenstiel. SURGEON: Isaiah Chase MD PLASMA CENTER TECHNICIAN: Cyndi Jarvis SA COMPLICATIONS: None. ESTIMATED BLOOD LOSS: 600 mL. INTRAVENOUS FLUIDS: 1000 mL LR. URINE OUTPUT: Clear at the end of the procedure. FINDINGS: Male infant, cephalic presentation, Apgars 8 and 9. Weight 1920grams, to NICU. Placenta 3-vessel cord intact. Uterus, tubes, and ovarieslooked normal. PROCEDURE IN DETAIL: After the risks, benefits, alternatives, and the nature ofthe procedure were discussed with the patient at length. She voicedunderstanding, all her questions were answered to her satisfaction and signedthe consent. She was taken to the operating room where spinal anesthesia wasfound to be adequate. She was then prepared and draped in the normal sterilefashion in the dorsal supine position with a leftward tilt. A Pfannenstiel skinincision was done with a scalpel and carried down to the underlying layer offascia, which was incised in midline and extended laterally with Gale scissors. The fascial borders were serially grasped with Brandon clamps, elevated and theunderlying layer of muscles with dissected off bluntly. The muscles wereseparated in the midline as well as peritoneum. The bladder blade was inserted. PATIENT NAME: ANJELICA NAVARRO The vesicouterine peritoneum was entered with Metzenbaum scissors and extendedlaterally. The bladder flap was created. Bladder blade was reinserted and thelower segment of the uterus was incised in the midline and extended laterallywith the bandage scissors. Amniotomy was done with clear fluid obtained. Thehead was delivered atraumatically followed by the rest of the body. Nose andmouth were suctioned. Cord clamped and cut. Baby handed off to the awaitingbaby care team. Placenta was delivered spontaneously. The uterus wasexteriorized and cleared of all clots and debris. The uterine incision wasclosed with 1.0 chromic in usual locked fashion. Another layer of the samesuture was placed to obtain excellent hemostasis. The uterus was returned tothe abdomen. The gutters were cleared of all clots and debris. Excellenthemostasis was noted. The abdominal muscles were reapproximated withinterrupted 2.0 Vicryl stitches incorporating the underlying layer ofperitoneum. Excellent hemostasis was noted. The fascia was closed with 0Vicryl in a running fashion. Excellent hemostasis was noted. Irrigation withwarm normal saline was done and excellent hemostasis was noted. The skin wasclosed with nicolle. Excellent hemostasis was noted. All counts were correct. The patient was taken to the recovery room awake and stable condition. PATHOLOGY: Placenta. Dictated By: Isaiah Chase MD WT: OP:F.NANCY/SHANIA/ROMANDD: 08/29/2019 19:07:31DT: 08/29/2019 19:57:21Conf#: [id number]/DID#: [id number] Authenticated by Isaiah Chase MD On 09/27/2019 06:43:29 AM at 0643 PATIENT NAME: ANJELICA NAVARRO gnzmxv4896-84-57Y01:57:00F.CHD3912 [id number] for patient lkrpYJEJLZIDYQUOMA8537-44-30G54:44 :05 [facility] 2019-08-28 21:20:00 PIosqrtepmo54594224z 5SJg8AzjLowN2g cLe6Be6MbKUvd/08g5iGeewgTTyj4jD7Do dkiAK33r7HovdWg6663-90-59N18:20:00 [facility] ([facility])OB Postpart Progr NoteREPORT#:[id number] REPORT STATUS: SignedDATE:08/28/19 TIME: 2119 PATIENT: ANJELICA NAVARRO UNIT #: [id number]#: [id number] ROOM/BED: 2023-ADOB: [birth year] AGE: 29 SEX: F ATTEND: Isaiah Chase [facility] AUTHOR: Isaiah Chase MD * ALL edits or amendments must be made on the electronic/computer document * Subjective SubjectivePatient reports: Patient reports: Yes: normal lochia, pain management effective, tolerating po well, voiding well, tolerating ambulation, flatus. No: complaints. Objective GeneralVS:Vital Signs Date Temp Pulse Resp B/P B/P Mean Pulse Ox FiO2 08/28 98.0-98.8 87-110 97-115/66-77 76.1 Last Documented: Result Date Time B/P 97/66 08/28 1957 Temp 98.7 08/28 1957 Pulse 110 08/28 1957 Resp 20 08/28 1957 B/P Mean 76.1 08/28 1957 Pulse Ox 100 08/26 2015 Patient Weight Weight (lb): 128Weight (oz): Weight (kg): 58.06 Physical ExamNeuro: Exam: alert, oriented x3, normal speechAbdomen: soft, no abnormal tendernessIncision site: well approximated edges, nicolle intact, dry, no drainage, no inflammationUterus: firm, involution appropriate, non-tenderFundus: firm, below the umbilicus, non-tender Diagnosis, Assessment Plan Diagnosis, Assessment PlanAssessment: nml progressPlan: routine care at 2120 RPT #:[id number] OF REPORT PRProgress Klez2524-96-12D80:20:00F.RBUC13135 [id number] for patient gmgaQMOVSOVHAZLJEO4474-29-65A49:21 :08 [facility] 2019-08-27 16:35:00 VXjnugprhxr37487648W 6obGMuvMGeWsOx c3EFFDcq4QC5RjlWj4D3a0E0wBfh+pNvLx SCAQNNzf1FqqL8V7523-99-73T52:35:00 [facility])OB Postpart Progr NoteREPORT#:[id number] REPORT STATUS: SignedDATE:08/27/19 TIME: 1635 PATIENT: ANJELICA NAVARRO UNIT #: [id number]#: [id number] ROOM/BED: 2023-ADOB: [birth year] AGE: 29 SEX: F [facility] AUTHOR: Isaiah Chase MD * ALL edits or amendments must be made on the electronic/computer document * Subjective SubjectivePatient reports: Patient reports: Yes: normal lochia, pain management effective, tolerating po well, toleratingambulation, flatus. No: complaints. Objective Nursing Documentation ReviewNursing data:The data set between the solid lines has been imported from nursing documentation. Any exceptions have been noted below under Provider comments. Feeding preference: Provider comments on imported nursing data: [] Physical ExamNeuro: Exam: alert, oriented x3, normal speechAbdomen: soft, no abnormal tendernessIncision site: well approximated edges, nicolle intact, dry, no drainage, no inflammationUterus: firm, involution appropriate, non-tenderFundus: firm, below the umbilicus, non-tender Diagnosis, Assessment Plan Diagnosis, Assessment PlanAssessment: nml progressPlan: routine care at 1635 RPT #:[id number] OF REPORT PRProgress Aais2761-21-33X15:35:00F.JRSH76875 [id number] for patient uvywLKPRDIRJJUWSBZ6945-56-41E07:36 :13 [facility] 2019-08-25 20:54:00 EKbqvxzrefh10057523c A/PT4zIzyonnNu JRo6pueJvOCKMIk4DDXOBZ1VPD4RcQ3I8M aDLTCyvmnzqf3Mr1592-78-81P75:54:00 [facility] ([facility])OB Antepartum Prog NoteREPORT#:[id number] REPORT STATUS: SignedDATE:08/25/19 TIME: 2053 PATIENT: ANJELICA NAVARRO UNIT #: [id number]#: [id number] ROOM/BED: [facility]-ADOB: [birth year] AGE: 29 SEX: F ATTEND: Isaiah Chase [facility] AUTHOR: Isaiah Chase MD * ALL edits or amendments must be made on the electronic/computer document * Subjective SubjectivePatient reports: Patient reports: Yes normal movement, No no complaints, No abdominal pain, No vaginal bleeding, No leaking fluid, No contractionsComments:seen around 8am Objective GeneralVS:Last Documented: Result Date Time Temp 98.2 08/25 0851 Resp 18 08/25 0851 B/P Mean 87.0 08/25 0851 B/P 116/69 08/25 0851 Pulse 77 08/25 0851 Pulse Ox 97 08/23 0832 Vital Signs Date Temp Pulse Resp B/P B/P Mean Pulse Ox FiO2 08/24-08/25 98.2-98.3 77-83 18 110-116/69 84.0-87.0 Patient Weight Weight (lb): 128Weight (oz): Weight (kg): 58.06 Physical ExamHEENT: normocephalic w/o injuryBreasts: deferredNeuro: Exam: alert, oriented x3, normal speechAbdomen: gravid, soft, no abnormal tendernessBaby A: Baby A baseline: 140 bpm Baby A variability: moderate 6-25 bpm Baby A accelerations: 15 X 15 Baby A FHR category: category 1 Diagnosis, Assessment Plan Diagnosis, Assessment PlanFree Text A P:ULTRASOUND: CEPHALIC, EFW 1641 GMS AT 1% (NO WEIGHT GAIN), NANCY CM, BPP 8/8, UA DOPPLERS WITH ELEVATED SD RATIOAssessment: IUP 35 4/7 WEEKS, IUGR, BOREDERLINE LOW NANCY, ELEVATED SD ON UA DOPPLERS, no weight gain today Plan: continue current managmnt, betamethasone admin, surveillance, DELIVER FOR NON REASSURING TESTING, otherwise in am at 2100 RPT #:[id number] OF REPORT PRProgress Qygh1995-56-94Q68:54:00F.ELJK77691 [id number] for patient xfvnXYAVJZNFXGELZR1327-85-18Z49:00 :56 [facility] 2019-08-24 20:53:00 CPtrjdyauca200745255 j0pgBnk8pT+k64 j+6htBI04950ul6w6NRQCUrbuc4z8QZil0 LrdDUXEqZkbdfYo4285-11-87C82:53:00 [facility] ([facility])OB Antepartum Prog NoteREPORT#:[id number] REPORT STATUS: SignedDATE:08/24/19 TIME: 2052 PATIENT: ANJELICA NAVARRO UNIT #: [id number]#: [id number] [address] [birth year] AGE: 29 SEX: F ATTEND: Isaiah Chase [facility] AUTHOR: Isaiah Chase MD * ALL edits or amendments must be made on the electronic/computer document * Subjective SubjectivePatient reports: Patient reports: Yes normal movement, No no complaints, No abdominal pain, No vaginal bleeding, No leaking fluid, No contractionsComments:SEEN AROUND 8AM Objective GeneralVS:Last Documented: Result Date Time Temp 98.2 08/24 0916 Resp 18 08/24 0916 B/P Mean 93.0 08/24 09 B/P 120/76 08/24 916 Pulse 84 08/24 916 Pulse Ox 97 08/23 0832 Vital Signs Date Temp Pulse Resp B/P B/P Mean Pulse Ox FiO2 08/23-08/24 98.1-98.2 74-84 - 100-120/65-76 77.0-93.0 Patient Weight Weight (lb): 128Weight (oz): Weight (kg): 58.06 Physical ExamHEENT: normocephalic w/o injuryBreasts: deferredNeuro: Exam: alert, oriented x3, normal speechAbdomen: gravid, soft, no abnormal tendernessBaby A: Baby A baseline: 140 bpm Baby A variability: moderate 6-25 bpm Baby A accelerations: 15 X 15 Baby A FHR category: category 1 Baby A notes:had a 3 min decel earlier to my visit and recovered well Diagnosis, Assessment Plan Diagnosis, Assessment PlanAssessment: IUP 35 3/7 WEEKS, IUGR, BOREDERLINE LOW NANCY, ELEVATED SD ON UA DOPPLERS Plan: continue current managmnt, betamethasone admin, surveillance, DELIVER FOR NON REASSURING TESTING, otherwise THIS WEDNESDAY at 2053 RPT #:[id number] OF REPORT PRProgress Ijhm4814-28-72I66:53:00F.IHWF30619 [id number] for patient xbcyKGGMSIWFXJJWIL1273-67-49K15:54 :29 [facility] 2019-08-23 20:03:00 BBuooxuhvvs57586520X kbdsrabJfSGcO8 jr/PU9RZW9AOvMB+G5vc8Soo9X/ft5azAI gO9TNzJMxBRoS9g2434-06-42F35:03:00 [facility] ([facility])OB Antepartum Prog NoteREPORT#:[id number] REPORT STATUS: SignedDATE:08/23/19 TIME: 2002 PATIENT: ANJELICA NAVARRO UNIT #: [id number]#: [id number] [address] [birth year] AGE: 29 SEX: F ATTEND: Isaiah Chase [facility] AUTHOR: Isaiah Chase MD * ALL edits or amendments must be made on the electronic/computer document * Subjective SubjectivePatient reports: Patient reports: Yes normal movement, No no complaints, No abdominal pain, No vaginal bleeding, No leaking fluid, No contractionsComments:seen around 8am Objective GeneralVS:Last Documented: Result Date Time Temp 98.1 08/23 0832 Resp 16 08/23 0832 B/P Mean 108.0 08/23 0832 Pulse Ox 97 08/23 0832 B/P 131/96 08/23 0832 Pulse 98 08/23 0832 Vital Signs Date Temp Pulse Resp B/P B/P Mean Pulse Ox FiO2 08/22-08/23 98.1 98-115 16 116-131/72-96 86.0-108.0 97-99 Patient Weight Weight (lb): 128Weight (oz): Weight (kg): 58.06 Physical ExamHEENT: normocephalic w/o injuryBreasts: deferredNeuro: Exam: alert, oriented x3, normal speechAbdomen: gravid, soft, no abnormal tendernessBaby A: Baby A baseline: 140 bpm Baby A variability: moderate 6-25 bpm Baby A accelerations: 15 X 15 Baby A FHR category: category 1 Baby A notes:had a 3 min decel earlier to my visit and recovered well Diagnosis, Assessment Plan Diagnosis, Assessment PlanAssessment: IUP 35 2/7 WEEKS, IUGR, BOREDERLINE LOW NANCY, ELEVATED SD ON UA DOPPLERS Plan: continue current managmnt, betamethasone admin, surveillance, DELIVER FOR NON REASSURING TESTING, otherwise THIS WEDNESDAY at [facility] RPT #:[id number] OF REPORT PRProgress Knqd7529-10-25A62:03:00F.NUKF63259 [id number] for patient jskyHDNUYDXOOJDDJY8312-81-20F00:04 :55 [facility] 2019-08-22 17:12:00 GRlholmoapv78984076B hobDU0/QkYGI7q Z5SiVq0VVr96EPWWSE+tcespgHxNzlJAip SBprma331F3Ef/J6082-44-88C49:12:00 [facility] ([facility])OB Antepartum Prog NoteREPORT#:[id number] REPORT STATUS: SignedDATE:08/22/19 TIME: 1712 PATIENT: ANJELICA NAVARRO UNIT #: [id number]#: [id number] ROOM/BED: [facility]-ADOB: [birth year] AGE: 29 SEX: F [facility]: [facility] Chase MD * ALL edits or amendments must be made on the electronic/computer document * Subjective SubjectivePatient reports: Patient reports: Yes normal movement, No no complaints, No abdominal pain, No vaginal bleeding, No leaking fluid, No contractionsComments:SEEN AROUND 8AM Objective Physical ExamHEENT: normocephalic w/o injuryBreasts: deferredNeuro: Exam: alert, oriented x3, normal speechAbdomen: gravid, soft, no abnormal tendernessBaby A: Baby A baseline: 140 bpm Baby A variability: moderate 6-25 bpm Baby A accelerations: 15 X 15 Baby A FHR category: category 1 Baby A notes:had a 3 min decel earlier to my visit and recovered well Diagnosis, Assessment Plan Diagnosis, Assessment PlanAssessment: IUP 35 1/7 WEEKS, IUGR, BOREDERLINE LOW NANCY, ELEVATED SD ON UA DOPPLERS Plan: continue current managmnt, betamethasone admin, surveillance, DELIVER FOR NON REASSURING TESTING, otherwise THIS WEDNESDAY at 1713 RPT #:[id number] OF REPORT PRProgress Hafx6411-02-27A05:12:00F.DFST05742 [id number] for patient wrorROVRGIWWBFNLBR5474-72-57C85:13 :54 [facility] 2019-08-21 12:42:00 EOhqroqjsmr92152534J 1Weqlkfn5wX0AM GPzKYAOUMce+3I/0fBU6vjwqmOuoJEEESg FfFLd2Vm34iAX0X9198-17-29Y41:42:00 [facility] ([facility])OB Antepartum Prog NoteREPORT#:[id number] REPORT STATUS: SignedDATE:08/21/19 TIME: 1242 PATIENT: ANJELICA NAVARRO UNIT #: [id number]#: [id number] [address] [birth year] AGE: 29 SEX: F ATTEND: Isaiah Chase [facility] AUTHOR: Cuco Cam MD * ALL edits or amendments must be made on the electronic/computer document * Subjective SubjectivePatient reports: Patient reports: Yes normal movement, No abdominal pain, No vaginal bleeding, No leakingfluid, No contractionsComments:c/o pain w saline flush Objective GeneralVS:Last Documented: Result Date Time B/P Mean 86.0 08/21 1308 B/P 117/70 08/21 1308 Pulse 98 08/21 1308 Pulse Ox 82 08/21 1307 Temp 98.7 08/21 0835 Resp 16 08/21 0835 Vital SignsDate Temp Pulse Resp B/P B/P Mean Pulse Ox SqX333/13-08/21 98.1-98.7 76-147 16-18 117-120/67-74 86.0-91.0 82-100 Patient Weight Weight (lb): 128Weight (oz): Weight (kg): 58.06 Physical ExamAbdomen: gravid, soft, no abnormal tendernessBaby A: Baby A baseline: 140 bpm Baby A variability: moderate 6-25 bpm Baby A accelerations: 15 X 15 Baby A FHR category: category 1 Baby A notes:had a 3 min decel earlier to my visit and recovered well Diagnosis, Assessment Plan Diagnosis, Assessment PlanFree Text A P:IUP 35 0/7 WEEKS, , DEEDEE, IUGR, BOREDERLINE LOW NANCY, ELEVATED SD ON UA DOPPLERSDELIVER IN 6 DAYS. pt resistant to hep lock. i rec it. she will sign ama if she refuses Plan: continue current managmnt, betamethasone admin, surveillance, DELIVER FOR NON REASSURING TESTING, otherwise at 35- 36 weeks, scheduled for 08-[address] liu aware at 1424 RPT #:[id number] OF REPORT PRProgress Irlg3509-18-30B29:42:00F.QXUO23020 [id number] for patient kpxeXOGEJVGNJJMIWD0189-63-50S32:25 :16 [facility] 2019-08-20 12:53:00 JXfwobklbtv87669535v VEjXveMkBza7i2 s0RLqKmptChLRKdnZuS6Udh2th/2EaPkTW nkZmp96spbvZogo6872-85-50Z55:53:00 [facility] ([facility])OB Antepartum Prog NoteREPORT#:[id number] REPORT STATUS: SignedDATE:08/20/19 TIME: 1253 PATIENT: ANJELICA NAVARRO UNIT #: [id number]#: [id number] [address] [birth year] AGE: 29 SEX: F ATTEND: Isaiah Chase [facility] AUTHOR: Vincent Liu MD * ALL edits or amendments must be made on the electronic/computer document * Subjective SubjectivePatient reports: Patient reports: Yes normal movement, No vaginal bleeding, No leaking fluid, No contractions Objective Physical ExamHEENT: normocephalic w/o injuryCardiac: regular rate and rhythmLungs: clear to auscultationBreasts: deferredNeuro: Exam: alert, oriented x3, normal speechAbdomen: gravid, soft, no abnormal tendernessBaby A: Baby A baseline: 140 bpm Baby A variability: moderate 6-25 bpm Baby A accelerations: 15 X 15 Baby A FHR category: category 1 Baby A notes:had a 3 min decel earlier to my visit and recovered well Diagnosis, Assessment Plan Diagnosis, Assessment PlanAssessment: IUP 34 6/7 WEEKS, IUGR, BOREDERLINE LOW NANCY, ELEVATED SD ON UA DOPPLERS DELIVER IN 6 DAYSPlan: continue current managmnt, betamethasone admin, surveillance, DELIVER FOR NON REASSURING TESTING, otherwise at 35- 36 weeks at 1253 RPT #:[id number] OF REPORT PRProgress Wqoc4283-69-66O78:53:00F.OSLD85575 [id number] for patient txwoILJQTPSXDVXNPM2270-97-50S80:53 :53 [facility] 2019-08-19 11:54:00 JLdfbfzwtdx273494876 zETs9Dq5yjpHSi PzD1gM0jEWz8XS6fEI8iRJgZNFoeFF7A3L h0Kd2AIraB19O460175-25-10H99:54:00 [facility] ([facility])OB Antepartum Prog NoteREPORT#:[id number] REPORT STATUS: SignedDATE:08/19/19 TIME: 1154 PATIENT: ANJELICA NAVARRO UNIT #: [id number]#: [id number] [address] [birth year] AGE: 29 SEX: F ATTEND: Isaiah Chase [facility] AUTHOR: Vincent Liu MD * ALL edits or amendments must be made on the electronic/computer document * Subjective SubjectivePatient reports: Patient reports: No vaginal bleeding, No leaking fluid, No contractions, No normal movement Objective Physical ExamHEENT: normocephalic w/o injuryCardiac: regular rate and rhythmLungs: clear to auscultationBreasts: deferredNeuro: Exam: alert, oriented x3, normal speechAbdomen: gravid, soft, no abnormal tendernessBaby A: Baby A baseline: 140 bpm Baby A variability: moderate 6-25 bpm Baby A accelerations: 15 X 15 Baby A FHR category: category 1 Baby A notes:had a 3 min decel earlier to my visit and recovered well Diagnosis, Assessment Plan Diagnosis, Assessment PlanAssessment: IUP 34 5/7 WEEKS, IUGR, BOREDERLINE LOW NANCY, ELEVATED SD ON UA DOPPLERSPlan: continue current managmnt, betamethasone admin, surveillance, DELIVER FOR NON REASSURING TESTING, otherwise at 35- 36 weeks at 1155 RPT #:[id number] OF REPORT PRProgress Uqfg6398-70-74E98:54:00F.DNRB44070 [id number] for patient srdlWDRHSQZBJPUOHD8345-19-04W39:55 :35 [facility] 2019-08-18 18:02:00 BHvzvaopsfi22917949G ixGeTQtCy0/ACZ uZwK9sSE14mnjjvcsYad7UYWcQF7OXv2WR NVLXVMmyrqPy+4K1860-16-19R80:02:00 [facility] ([facility])OB Antepartum Prog NoteREPORT#:[id number] REPORT STATUS: SignedDATE:08/18/19 TIME: 1802 PATIENT: ANJELICA NAVARRO UNIT #: [id number]#: [id number] ROOM[address]BED: [address]: [birth year] AGE: 29 SEX: F ATTEND: Isaiah Chase [facility] AUTHOR: Isaiah Chase MD * ALL edits or amendments must be made on the electronic/computer document * Subjective SubjectivePatient reports: Patient reports: Yes normal movement, No no complaints, No abdominal pain, No vaginal bleeding, No leaking fluid, No contractionsComments:SEEN AROUND 8AM Objective GeneralVS:Last Documented: Result Date Time B/P Mean 86.0 08/18 0959 B/P 113/69 08/18 0959 Pulse 73 08/18 0959 Pulse Ox 100 08/18 959 Resp 16 08/18 959 Temp 98.2 08/17 192 Vital Signs Date Temp Pulse Resp B/P B/P Mean Pulse Ox FiO2 08/17-08/18 98.2 73-88 16 104-113/61-69 74.0-86.0 100 Patient Weight Weight (lb): 128Weight (oz): Weight (kg): 58.06 Physical ExamHEENT: normocephalic w/o injuryNeuro: Exam: alert, oriented x3, normal speechAbdomen: gravid, soft, no abnormal tendernessBaby A: Baby A baseline: 140 bpm Baby A variability: moderate 6-25 bpm Baby A accelerations: 15 X 15 Baby A FHR category: category 1 Diagnosis, Assessment Plan Diagnosis, Assessment PlanAssessment: IUP 34 4/7 WEEKS, IUGR, BOREDERLINE LOW NANCY, ELEVATED SD ON UA DOPPLERSPlan: continue current managmnt, betamethasone admin, surveillance, DELIVER FOR NON REASSURING TESTING, otherwise at 35- 36 weeks at 1802 RPT #:[id number] OF REPORT PRProgress Ppup8447-60-83A48:02:00F.EWQG98253 [id number] for patient cyqjQILFASTSZUCPPZ5984-67-86X66:03 :16 [facility] 2019-08-17 21:38:00 SFevuwjudqn16366947D T3JR+Gix1nyzbk kDzcxd1NRZNT0X+H6gFKmQysOkwNVeWa26 ZInLhBVKolZA8jM4709-41-66R89:38:00 [facility] ([facility])OB Antepartum Prog NoteREPORT#:[id number] REPORT STATUS: SignedDATE:08/17/19 TIME: 2137 PATIENT: ANJELICA NAVARRO UNIT #: [id number]#: [id number] [address] [birth year] AGE: 29 SEX: F ATTEND: Isaiah Chase AUTHOR: Isaiah Chase MD * ALL edits or amendments must be made on the electronic/computer document * Subjective SubjectivePatient reports: Patient reports: Yes normal movement, No no complaints, No abdominal pain, No vaginal bleeding, No leaking fluid, No contractionsComments:seen around 8am Objective GeneralVS:Last Documented: Result Date Time B/P Mean 74.0 08/17 1923 B/P 104/61 08/17 1923 Pulse 88 08/17 192 Pulse Ox 100 08/17 1008 Temp 98.4 08/17 1008 Resp 17 08/17 1008 Vital Signs Date Temp Pulse Resp B/P B/P Mean Pulse Ox FiO2 08/17 98.4 76-88 17 104-126/61-76 74.0-96.0 100 Patient Weight Weight (lb): 128Weight (oz): Weight (kg): 58.06 Physical ExamHEENT: normocephalic w/o injuryBreasts: deferredNeuro: Exam: alert, oriented x3, normal speechAbdomen: gravid, soft, no abnormal tendernessBaby A: Baby A baseline: 140 bpm Baby A variability: moderate 6-25 bpm Baby A accelerations: 15 X 15 Baby A FHR category: category 1 Baby A notes:had a 3 min decel earlier to my visit and recovered well Diagnosis, Assessment Plan Diagnosis, Assessment PlanAssessment: IUP 34 3/7 WEEKS, IUGR, BOREDERLINE LOW NANCY, ELEVATED SD ON UA DOPPLERSPlan: continue current managmnt, betamethasone admin, surveillance, DELIVER FOR NON REASSURING TESTING, otherwise at 35- 36 weeks at 2142 [facility] #:[id number] OF REPORT PRProgress Qymb3089-00-74Y98:38:00F.PXLG03077 [id number] for patient gjbpETSRTVAKDWNDDL1783-53-08N15:43 :19 [facility] 21:42:00 OUbjpvzdwpf96072136e jRB8McQaxPOsMt M9r/5osuj2zDx6h6RIWlfRjdVHXgnHMwnG HA0PcUOlieoqDIk5330-29-72T39:42:00 [facility] ([facility])OB Antepartum Prog NoteREPORT#:[id number] REPORT STATUS: SignedDATE:08/16/19 TIME: 2141 PATIENT: ANJELICA NAVARRO UNIT #: [id number]#: [id number] [address] [birth year] AGE: 29 SEX: F ATTEND: Isaiah Chase [facility] AUTHOR: Isaiah Chase MD * ALL edits or amendments must be made on the electronic/computer document * Subjective SubjectivePatient reports: Patient reports: Yes normal movement, No no complaints, No abdominal pain, No vaginal bleeding, No leaking fluid, No contractionsComments:seen around 7am Objective GeneralVS:Last Documented: Result Date Time B/P Mean 82.0 08/16 1952 B/P 113/63 08/16 1952 Pulse 99 08/16 1952 Pulse Ox 100 08/16 07 Resp 16 08/16 749 Temp 98.1 08/15 2006 Vital Signs Date Temp Pulse Resp B/P B/P Mean Pulse Ox FiO2 08/16 75-99 16 113-127/60-63 82.0-86.0 100 Patient Weight Weight (lb): 128Weight (oz): Weight (kg): 58.06 Physical ExamHEENT: normocephalic w/o injuryBreasts: deferredNeuro: Exam: alert, oriented x3, normal speechAbdomen: gravid, soft, no abnormal tendernessBaby A: Baby A baseline: 140 bpm Baby A variability: moderate 6-25 bpm Baby A accelerations: 15 X 15 Baby A FHR category: category 1 Baby A notes:had a 3 min decel earlier to my visit and recovered well Diagnosis, Assessment Plan Diagnosis, Assessment PlanFree Text A P:ULTRASOUND: CEPH, EFW 1678 GMS AT 9%, NANCY 12 CM, BPP 8/8, UA DOPPLERS WITH ELEVATED SD WITHOUT AEDFAssessment: IUP 34 2/7 WEEKS, IUGR, BOREDERLINE LOW NANCY, ELEVATED SD ON UA DOPPLERSPlan: continue current managmnt, betamethasone admin, surveillance, DELIVER FOR NON REASSURING TESTING, otherwise at 35- 36 weeks at 2150 RPT #:[id number] OF REPORT PRProgress Attn3195-59-37X94:42:00F.WVLP78843 [id number] for patient gvfuOZLCBMQYJUMXNP0630-65-69R80:50 :48 [facility] 2019-08-15 18:36:00 IQfginlpufu05991500u VFr+s+F8y5kAGl l1/oifl3r7hBuoXMzJrycUdCCwo2REAell UEIB5S1y57Xq77A9341-69-40L14:36:00 [facility] Antepartum Prog NoteREPORT#:[id number] REPORT STATUS: SignedDATE:08/15/19 TIME: 1835 PATIENT: ANJELICA NAVARRO UNIT #: [id number]#: [id number] [address] [birth year] AGE: 29 SEX: F ATTEND: Isaiah Chase [facility] AUTHOR: Isaiah Chase MD * ALL edits or amendments must be made on the electronic/computer document * Subjective SubjectivePatient reports: Patient reports: Yes normal movement, No no complaints, No abdominal pain, No vaginal bleeding, No leaking fluid, No contractionsComments:seen around 8am Objective GeneralVS:Last Documented: Result Date Time B/P Mean 84.0 10/08 0946 B/P 109/69 08/15 946 Pulse 81 08/15 946 Pulse Ox 100 08/15 946 Temp 98.2 08/15 946 Resp 16 08/15 946 Vital Signs Date Temp Pulse Resp B/P B/P Mean Pulse Ox FiO2 08/14-08/15 98.2-98.3 81-84 16 109-121/69-76 84.0-93.0 100 Patient Weight Weight (lb): 128Weight (oz): Weight (kg): 58.06 Physical ExamHEENT: normocephalic w/o injuryBreasts: deferredNeuro: Exam: alert, oriented x3, normal speechAbdomen: gravid, soft, no abnormal tendernessBaby A: Baby A baseline: 140 bpm Baby A variability: moderate 6-25 bpm Baby A accelerations: 15 X 15 Baby A FHR category: category 1 Diagnosis, Assessment Plan Diagnosis, Assessment PlanAssessment: IUP 34 1/7 WEEKS, IUGR, BOREDERLINE LOW NANCY, ELEVATED SD ON UA DOPPLERS, no major decels MCA DOPPLERS WITH CEREBROPLACENTAL REPERFUSIONPlan: continue current managmnt, betamethasone admin, surveillance, DELIVER FOR NON REASSURING TESTING, oterwise at 35- 36 weeks at 1837 RPT #:[id number] OF REPORT PRProgress Ixkq4340-54-27N06:36:00F.BIUW77468 [id number] for patient hpjdHCPVHMIAAOHTEM1706-76-52H84:38 :25 [facility] 2019-08-14 17:46:00 UVldunfzrcx67163061K LfX9/kVd+xdsC4 FUxIl15CAmTGAQs0xhF1t2dwE/agDVlEtd AmcI0a//bGWcmcn3514-40-72P79:46:00 [facility] ([facility])OB Antepartum Prog NoteREPORT#:[id number] REPORT STATUS: SignedDATE:08/14/19 TIME: 1746 PATIENT: ANJELICA NAVARRO UNIT #: [id number]#: [id number] ROOM/BED: F.3212-ADOB: [birth year] AGE: 29 SEX: F [facility] AUTHOR: Isaiah Chase MD * ALL edits or amendments must be made on the electronic/computer document * Subjective SubjectivePatient reports: Patient reports: Yes normal movement, No no complaints, No abdominal pain, No vaginal bleeding, No leaking fluid, No contractions Objective Physical ExamHEENT: normocephalic w/o injuryLungs: clear to auscultationNeuro: Exam: alert, oriented x3, normal speechAbdomen: gravid, soft, no abnormal tendernessBaby A: Baby A baseline: 140 bpm Baby A variability: moderate 6-25 bpm Baby A accelerations: 15 X 15 Baby A FHR category: category 1 Baby A notes:had a 4 min decel earlier to my visit and recovered well Diagnosis, Assessment Plan Diagnosis, Assessment PlanAssessment: IUP 34 0/7 WEEKS, IUGR, BOREDERLINE LOW NANCY, ELEVATED SD ON UA DOPPLERS, decels better today MCADOPPLERS WITH CEREBROPLACENTAL REPERFUSIONPlan: continue current managmnt, betamethasone admin, surveillance, DELIVER FOR NON REASSURING TESTING, oterwise at 35 weeks at 1746 RPT #:[id number] OF REPORT PRProgress Rxgu7585-05-50A58:46:00F.JTHC24768 [id number] for patient xodrKTZPGYCSFQSJIK8818-37-62M21:47 :19 [facility] 2019-08-13 11:12:00 PIkrnpkltmn80842896O acHvzilzXqN4Gd hf3AeNxgk3MBEGCGWHyFMVLpvyeCLtHtg1 xbQpwl9W3kAuAdW2162-42-62H33:12:00 [facility] ([facility])OB Antepartum Prog NoteREPORT#:[id number] REPORT STATUS: SignedDATE:08/13/19 TIME: 1112 PATIENT: ANJELICA NAVARRO UNIT #: [id number]#: [id number] [address] [birth year] AGE: 29 SEX: F ATTEND: Isaiah Chase [facility] AUTHOR: Vincent Liu MD * ALL edits or amendments must be made on the electronic/computer document * Subjective SubjectivePatient reports: Patient reports: Yes normal movement, No vaginal bleeding, No leaking fluid, No contractions Objective Physical ExamHEENT: normocephalic w/o injuryCardiac: regular rate and rhythmLungs: clear to auscultationBreasts: deferredNeuro: Exam: alert, oriented x3, normal speechAbdomen: gravid, soft, no abnormal tendernessBaby A: Baby A baseline: 140 bpm Baby A variability: moderate 6-25 bpm Baby A accelerations: 15 X 15 Baby A FHR category: category 1 Baby A notes:had a 4 min decel earlier to my visit and recovered well Diagnosis, Assessment Plan Diagnosis, Assessment PlanAssessment: IUP 33 6/7 WEEKS, IUGR, BOREDERLINE LOW NANCY, ELEVATED SD ON UA DOPPLERS, decels better today MCADOPPLERS WITH CEREBROPLACENTAL REPERFUSIONPlan: continue current managmnt, betamethasone admin, surveillance, DELIVER FOR NON REASSURING TESTING, oterwise at 35 weeks at 1112 RPT #:[id number] OF REPORT PRProgress [id number] for patient [id number] [facility] 2019 12:38:00 [id number] DHcnXzSr5LqS/z +5WuSsXKJJTvJZrc+CQEhrGokMetbX 6n+T06GCW97zKJn6698-15-66F41:38:00 [facility] ([facility])OB Antepartum Prog NoteREPORT#:[id number] REPORT STATUS: SignedDATE:08/12/19 TIME: 1238 PATIENT: ANJELICA NAVARRO UNIT #: [id number]#: [id number] [address] [birth year] AGE: 29 SEX: F ATTEND: Isaiah Chase [facility] AUTHOR: Vincent Liu MD * ALL edits or amendments must be made on the electronic/computer document * Subjective SubjectivePatient reports: Patient reports: Yes normal movement, No vaginal bleeding, No leaking fluid, No contractions Objective Physical ExamHEENT: normocephalic w/o injuryCardiac: regular rate and rhythmLungs: clear to auscultationBreasts: deferredNeuro: Exam: alert, oriented x3, normal speechAbdomen: gravid, soft, no abnormal tendernessBaby A: Baby A baseline: 140 bpm Baby A variability: moderate 6-25 bpm Baby A accelerations: 15 X 15 Baby A FHR category: category 1 Baby A notes:had a 4 min decel earlier to my visit and recovered well Diagnosis, Assessment Plan Diagnosis, Assessment PlanAssessment: IUP 33 5/7 WEEKS, IUGR, BOREDERLINE LOW NANCY, ELEVATED SD ON UA DOPPLERS, decels better today MCADOPPLERS WITH CEREBROPLACENTAL REPERFUSIONPlan: continue current managmnt, betamethasone admin, surveillance, DELIVER FOR NON REASSURING TESTING, oterwise at 35 weeks at 1239 RPT #:[id number] OF REPORT PRProgress Rxoy3358-40-32D53:38:00F.CKCE57012 [id number] for patient pfhsZJAUPHYXHKOISG6807-86-88T91:39 :40 [facility] 2019-08-11 21:53:00 HIghypsyxff90402355H oH4qWCTanYJBxJ 3LXRFV+FQoEu7qVfZy6O8Jhvr102TLoQUI tUsboEpZOsjVQS35717-91-03X76:53:00 [facility] ([facility])OB Antepartum Prog NoteREPORT#:[id number] REPORT STATUS: SignedDATE:08/11/19 TIME: 2153 PATIENT: ANJELICA NAVARRO UNIT #: [id number]#: [id number] [address] [birth year] AGE: 28 SEX: F ATTEND: Isaiah Chase [facility] AUTHOR: Isaiah Chase MD * ALL edits or amendments must be made on the electronic/computer document * Subjective SubjectivePatient reports: Patient reports: Yes normal movement, No no complaints, No abdominal pain, No vaginal bleeding, No leaking fluid, No contractionsComments:seen around 8am Objective GeneralVS:Last Documented: Result Date Time B/P Mean 88.0 08/11 1957 B/P 121/71 08/11 1957 Pulse 98 08/11 1957 Temp 98.5 08/11 826 Pulse Ox 100 08/11 07 Resp 18 08/10 1930 Vital Signs Date Temp Pulse Resp B/P B/P Mean Pulse Ox FiO2 08/11 98.5 81-98 109-121/71-73 86.0-88.0 100 Patient Weight Weight (lb): 128Weight (oz): Weight (kg): 58.06 Physical ExamHEENT: normocephalic w/o injuryBreasts: deferredNeuro: Exam: alert, oriented x3, normal speechAbdomen: gravid, soft, no abnormal tendernessBaby A: Baby A baseline: 140 bpm Baby A variability: moderate 6-25 bpm Baby A accelerations: 15 X 15 Baby A FHR category: category 1 Baby A notes:had a 4 min decel earlier to my visit and recovered well Diagnosis, Assessment Plan Diagnosis, Assessment PlanFree Text A P:ULTRASOUND: CEPHALIC, EFW 1619 GMS AT 9%, NANCY 8 CM, BPP 8/8, POST PLAC, UA DOPPLERS WITH ELEVATED SD AT 4.7, MCA DOPPLERS C/W CEREBEROPLACENTAL REPERFUSIONAssessment: IUP 33 4/7 WEEKS, IUGR, BOREDERLINE LOW NANCY, ELEVATED SD ON UA DOPPLERS, decels off and on, MCADOPPLERS WITH CEREBROPLACENTAL REPERFUSIONPlan: continue current managmnt, betamethasone admin, surveillance, DELIVER FOR NON REASSURING TESTING, oterwise at 35 weeks at 2157 RPT #:[id number] OF REPORT PRProgress Dhev9169-58-73S35:53:00F.FUDP14192 [id number] for patient ewqpRKLYBMGTPOUMDB3843-40-73C41:57 :43 [facility] 2019-08-10 20:47:00 MNqgghfjzmd65871878k rvV8ZeDyzF6AFx 0WY03lUQKJmqXX6qHuh3ghu03zX/Z1kSra +B1WqF3p5/doSjp0999-67-26E21:47:00 [facility] ([facility])OB Antepartum Prog NoteREPORT#:[id number] REPORT STATUS: SignedDATE:08/10/19 TIME: 2046 PATIENT: ANJELICA NAVARRO UNIT #: [id number]#: [id number] [address] [birth year] AGE: 28 SEX: F ATTEND: Isaiah Chase [facility] AUTHOR: Isaiah Chase MD * ALL edits or amendments must be made on the electronic/computer document * Subjective SubjectivePatient reports: Patient reports: Yes normal movement, No no complaints, No abdominal pain, No vaginal bleeding, No leaking fluid, No contractionsComments:seen around 6pm Objective GeneralVS:Last Documented: Result Date Time B/P Mean 90.0 08/10 1930 B/P 120/72 08/10 193 Pulse 86 08/10 193 Temp 98.5 08/10 928 Resp 18 08/10 928 Pulse Ox 100 08/10 0145 Vital Signs Date Temp Pulse Resp B/P B/P Mean Pulse Ox FiO2 08/10 98.5 86-92 18 120-124/65-72 88.0-90.0 100 Patient Weight Weight (lb): 128Weight (oz): Weight (kg): 58.06 Physical ExamHEENT: normocephalic w/o injuryBreasts: deferredNeuro: Exam: alert, oriented x3, normal speechAbdomen: gravid, soft, no abnormal tendernessBaby A: Baby A baseline: 140 bpm Baby A variability: moderate 6-25 bpm Baby A accelerations: 15 X 15 Baby A FHR category: category 1 Baby A notes:had 2 ramona decels that recovered quickly Diagnosis, Assessment Plan Diagnosis, Assessment PlanAssessment: IUP 33 3/7 WEEKS, SEVERE IUGR, BOREDERLINE LOW NANCY, ELEVATED SD ON UA DOPPLERSPlan: continue current managmnt, betamethasone admin, surveillance, DELIVER FOR NON REASSURING TESTING at 2048 RPT #:[id number] OF REPORT PRProgress Nmhv2968-25-03T03:47:00F.LBTZ58148 [id number] for patient straEKUMIXSXUWDYKL1297-35-63Y49:48 :29 [facility] 2019-08-09 20:17:00 VGskdmhzikp04480629z btX1CKacqATdwT RxTVjECwo1PYzcUpTMpUYnck2zr5T/GfVJ 3oXrbF212pFdHxA1681-09-07I48:17:00 [facility])OB Antepartum Prog NoteREPORT#:[id number] REPORT STATUS: SignedDATE:08/09/19 TIME: 2016 PATIENT: ANJELICA NAVARRO UNIT #: [id number]#: [id number] [address] [birth year] AGE: 28 SEX: F ATTEND: Isaiah Chase [facility] AUTHOR: Isaiah Chase MD * ALL edits or amendments must be made on the electronic/computer document * Subjective SubjectivePatient reports: Patient reports: Yes normal movement, No no complaints, No abdominal pain, No vaginal bleeding, No leaking fluidComments:seen around 8am Objective Physical ExamHEENT: normocephalic w/o injuryBreasts: deferredNeuro: Exam: alert, oriented x3, normal speechAbdomen: gravid, soft, no abnormal tendernessBaby A: Baby A baseline: 140 bpm Baby A variability: moderate 6-25 bpm Baby A accelerations: 15 X 15 Baby A FHR category: category 1 Baby A notes:had 2 ramona decels that recovered quickly Diagnosis, Assessment Plan Diagnosis, Assessment PlanAssessment: IUP 33 2/7 WEEKS, SEVERE IUGR, BOREDERLINE LOW NANCY, ELEVATED SD ON UA DOPPLERSPlan: continue current managmnt, betamethasone admin, surveillance, DELIVER FOR NON REASSURING TESTING at 2017 RPT #:[id number] OF REPORT PRProgress Tind6190-51-63P47:17:00F.DFHV03850 [id number] for patient tdjkXXDBNMTBSEUVMO6202-82-82C11:18 :11 [facility] 2019-08-08 13:06:00 DMwkjqndqsz05330208i 0jXbn01v1sHYwN QHQ2MdKfg67ZvAhwgOlBPZ6aHYbNvgW9zb RklrHhHYHAYfX9V1020-74-39P40:06:00 [facility] ([facility])OB Antepartum Prog NoteREPORT#:[id number] REPORT STATUS: SignedDATE:08/08/19 TIME: 1306 PATIENT: ANJELICA NAVARRO UNIT #: [id number]#: [id number] [address] [birth year] AGE: 28 SEX: F ATTEND: Isaiah Chase [facility] AUTHOR: Isaiah Chase MD * ALL edits or amendments must be made on the electronic/computer document * Subjective SubjectivePatient reports: Patient reports: Yes normal movement, No no complaints, No abdominal pain, No vaginal bleeding, No leaking fluid, No contractionsComments:seen around 8am Objective GeneralVS:Last Documented: Result Date Time B/P Mean 82.0 08/08 1002 B/P 118/59 08/08 1002 Pulse 95 08/08 1002 Pulse Ox 99 08/08 0504 Temp 98.4 08/07 1951 Resp 18 08/07 1951 Vital Signs Date Temp Pulse Resp B/P B/P Mean Pulse Ox FiO2 08/07-08/08 98.4 85-95 18 110-129/59-71 81.0-92.0 99-100 Patient Weight Weight (lb): 128Weight (oz): Weight (kg): 58.06 Physical ExamHEENT: normocephalic w/o injuryNeuro: Exam: alert, oriented x3, normal speechAbdomen: gravid, soft, no abnormal tendernessBaby A: Baby A baseline: 140 bpm Baby A variability: moderate 6-25 bpm Baby A accelerations: 15 X 15 Baby A FHR category: category 1 Diagnosis, Assessment Plan Diagnosis, Assessment PlanAssessment: IUP 33 1/7 WEEKS, SEVERE IUGR, BOREDERLINE LOW NANCY, ELEVATED SD ON UA DOPPLERSPlan: continue current managmnt, betamethasone admin, surveillance, DELIVER FOR NON REASSURING TESTING at 1308 RPT #:[id number] OF REPORT PRProgress Yymr9322-24-79Z90:06:00F.VSXW04066 [id number] for patient meppCKMCWGHNJVTMIN3016-85-28K33:08 :45 [facility] 2019-08-07 20:27:00 VHfbxaqamis73181891k PodJkCjuUdQqGc bpha4+lzGuV581c6HuLd+WeRR6n7FB1tZy xRUBhd+JwuI5Sh/6356-48-28T00:27:00 [facility] ([facility])OB Antepartum Prog NoteREPORT#:[id number] REPORT STATUS: SignedDATE:08/07/19 TIME: 2026 PATIENT: ANJELICA NAVARRO UNIT #: [id number]#: [id number] [address] [birth year] AGE: 28 SEX: F ATTEND: Isaiah Chase [facility] AUTHOR: Isaiah Chase MD * ALL edits or amendments must be made on the electronic/computer document * Subjective SubjectivePatient reports: Patient reports: Yes normal movement, No no complaints, No abdominal pain, No vaginal bleeding, No leaking fluid, No contractionsComments:SEEN AROUND 8AM Objective Physical ExamHEENT: normocephalic w/o injuryNeuro: Exam: alert, oriented x3, normal speechAbdomen: gravid, soft, no abnormal tendernessBaby A: Baby A baseline: 140 bpm Baby A variability: moderate 6-25 bpm Baby A accelerations: 15 X 15 Baby A FHR category: category 1 Baby A notes:had 2 ramona decels that recovered quickly Diagnosis, Assessment Plan Diagnosis, Assessment PlanAssessment: IUP 33 0/7 WEEKS, SEVERE IUGR, BOREDERLINE LOW NANCY, ELEVATED SD ON UA DOPPLERSPlan: continue current managmnt, betamethasone admin, surveillance, DELIVER FOR NON REASSURING TESTING at 2027 RPT #:[id number] OF REPORT PRProgress Bfdj3310-90-70L23:27:00F.GDWH23402 [id number] for patient ixqxOIRDBJRBRAXHQI1288-56-43Z51:28 :22 [facility] 2019-08-06 13:37:00 DUbvptshuym98701381y 8wefK+ohRm3hhb EXiytxUQAPJEqRoUnhbymmuJDib/vdu7Bn uwnMTzb9Zxw5Cru0498-17-90F90:37:00 [facility] ([facility])OB Antepartum Prog NoteREPORT#:[id number] REPORT STATUS: SignedDATE:08/06/19 TIME: 1337 PATIENT: ANJELICA NAVARRO UNIT #: [id number]#: [id number] [address] [birth year] AGE: 28 SEX: F ATTEND: Isaiah Chase [facility] AUTHOR: Isaiah Chase MD * ALL edits or amendments must be made on the electronic/computer document * Subjective SubjectivePatient reports: Patient reports: Yes normal movement, No no complaints, No abdominal pain, No vaginal bleeding, No leaking fluid, No contractions Objective GeneralVS:Last Documented: Result Date Time Temp 97.8 08/06 0903 B/P Mean 73.0 08/06 09 B/P 101/60 08/06 09 Pulse 80 08/06 903 Pulse Ox 100 08/06 0229 Resp 18 08/05 0915 Vital Signs Date Temp Pulse Resp B/P B/P Mean Pulse Ox FiO2 08/05-08/06 97.8-98.5 22-100 101-111/60-65 73.0-83.0 86-100 Patient Weight Weight (lb): 128Weight (oz): Weight (kg): 58.06 Physical ExamHEENT: normocephalic w/o injuryNeuro: Exam: alert, oriented x3, normal speechAbdomen: gravid, soft, no abnormal tendernessBaby A: Baby A baseline: 140 bpm Baby A variability: moderate 6-25 bpm Baby A accelerations: 15 X 15 Baby A FHR category: category 1 Baby A notes:had 2 ramona decels that recovered quickly Diagnosis, Assessment Plan Diagnosis, Assessment PlanAssessment: IUP 32 6/7 WEEKS, SEVERE IUGR, BOREDERLINE LOW NANCY, ELEVATED SD ON UA DOPPLERSPlan: continue current managmnt, betamethasone admin, surveillance, DELIVER FOR NON REASSURING TESTING at 1338 RPT #:[id number] OF REPORT PRProgress Bfel6967-97-95Q95:37:00F.MGAA49546 [id number] for patient clmlSFXVSJOVFSYWHK2244-53-07Y98:39 :08 [facility] 2019-08-05 21:42:00 ZAxbvyuzddr29435960i PjLACk1uedm3w9 0Xmnnn6LWgutIbToqrIUGNoeWWU4lns1fb FK9oEs2//BTqL336117-90-26S94:42:00 [facility])OB Antepartum Prog NoteREPORT#:[id number] REPORT STATUS: SignedDATE:08/05/19 TIME: 2141 PATIENT: ANJELICA NAVARRO UNIT #: [id number]#: [id number] ROOM/BED: [facility]-ADOB: [birth year] AGE: 28 SEX: F ATTEND: Isaiah Chase [facility] AUTHOR: Isaiah Chase MD * ALL edits or amendments must be made on the electronic/computer document * Subjective SubjectivePatient reports: Patient reports: Yes normal movement, No no complaints, No abdominal pain, No vaginal bleeding, No leaking fluid, No contractionsComments:SEEN AROUND 4PM Objective GeneralVS:Last Documented: Result Date Time Pulse Ox 86 08/05 1429 Pulse 22 08/05 1429 Temp 97.7 08/05 0915 Resp 18 08/05 0915 B/P Mean 84.0 08/05 0915 B/P 111/72 08/05 0915 Vital Signs Date Temp Pulse Resp B/P B/P Mean Pulse Ox FiO2 08/04-08/05 97.7 22-83 18 111/ 84.0 86-100 Patient Weight Weight (lb): 128Weight (oz): Weight (kg): 58.06 Physical ExamHEENT: normocephalic w/o injuryNeuro: Exam: alert, oriented x3, normal speechAbdomen: gravid, soft, no abnormal tendernessBaby A: Baby A baseline: 140 bpm Baby A variability: moderate 6-25 bpm Baby A accelerations: 15 X 15 Baby A FHR category: category 1 Diagnosis, Assessment Plan Diagnosis, Assessment PlanAssessment: IUP 32 5/7 WEEKS, SEVERE IUGR, BOREDERLINE LOW NANCY, ELEVATED SD ON UA DOPPLERSPlan: continue current managmnt, betamethasone admin, surveillance, DELIVER FOR NON REASSURING TESTING at 2143 RPT #:[id number] OF REPORT PRProgress Vduv8295-65-02C23:42:00F.HEMJ90191 [id number] for patient ocnqXOVVREHEZMWKJB0546-56-06T18:43 :39 [facility] 2019-08-04 19:35:00 WHpgojdrqbt06073323p 5GfvmtI3of9AQc gNF9dLlRTCmxSq/owZl7v9OcdrrtMwVmDs c5O64AoLMGc3MDp4506-84-19K56:35:00 [facility] ([facility])Clinical NoteREPORT#:[id number] REPORT STATUS: SignedDATE:08/04/19 TIME: 1934 PATIENT: ANJELICA NAVARRO UNIT #: [id number]#: [id number] ROOM/BED: [facility]-ADOB: [birth year] AGE: 28 SEX: F ATTEND: Isaiah Chase [facility] AUTHOR: Abi Bangura MD * ALL edits or amendments must be made on the electronic/computer document * Clinical NoteNote:hospitalist to evaluate FHTs and check pt PT 28 yo at 32 4/7 weeks in hospital for IUGR, s/p 2 doses of Celestone,lasst night had a few ctxn, but voided and went away. Earlier today baby had 2 decelerations about 2 min each, followed by FHTs 120-130s cat 1 strip, then about 6pm, pt had 2 ctxn, both with late decelerations, but again cat [address] Chase called, pt now NPO and on continuous monitoring. When I went into the room, the pt had gotten up to void. Pt reports less FM (though +), -Vb, -ROM, ?CTXN--has pain in backand lower abdomen that comes and goes, and hurts more when she moves. She denies dysuria, denies flank pain. POb 1 sAB with D C, 1 at 37 weeksPMHx negativePSHx D C, GB BP 124/74FHTs as aboveTOCO few ctxn as above-CVAT+SPT, no rebound, no guardSVE closed/40/mid/soft, high A/P 32 3/7 weeks, s/p Celestone, baby IUGR, pt NPO, continuous monitoringd/w Dr. Chase, will also check UA and cx at 1942 RPT #:[id number] OF REPORT CLClinical fprq3700-35-94M78:35:00F.ACJK74636 [id number] for patient ufmrIAVXGKEVANOFDF7966-81-15G36:43 :00 [facility] 17:09:00 AOphovexalw96015933L CP6PCfBWNohFvH v/hiHSGKA6CUNEbzDLJbatjc7msaWF41ae mR3DGf2rxZeyqfx1211-04-03M63:09:00 [facility])OB Antepartum Prog NoteREPORT#:[id number] REPORT STATUS: SignedDATE:08/04/19 TIME: 1709 PATIENT: ANJELICA NAVARRO UNIT #: [id number]#: [id number] [address] [birth year] AGE: 28 SEX: F ATTEND: Isaiah Chase [facility] AUTHOR: Isaiah Chase MD * ALL edits or amendments must be made on the electronic/computer document * Subjective SubjectivePatient reports: Patient reports: Yes normal movement, No no complaints, No abdominal pain, No vaginal bleeding, No leaking fluid, No contractionsComments:seen around 8am Objective GeneralVS:Last Documented: Result Date Time Pulse Ox 100 08/04 1601 Pulse 96 08/04 1601 B/P Mean 93.0 08/04 1349 B/P 124/74 08/04 1349 Resp 16 08/03 2052 Temp 98.2 08/03 2052 Vital Signs Date Temp Pulse Resp B/P B/P Mean Pulse Ox FiO2 08/03-08/04 98.2 93-109 16 124-127/74-76 93.0-95.0 91-100 Patient Weight Weight (lb): 128Weight (oz): Weight (kg): 58.06 Physical ExamHEENT: normocephalic w/o injuryLungs: clear to auscultationNeuro: Exam: alert, oriented x3, normal speechAbdomen: gravid, soft, no abnormal tenderness Diagnosis, Assessment Plan Diagnosis, Assessment PlanFree Text A P:ULTRASOUND: CEPHALIC, BPP 8/8, UA DOPPLERS WITH ELEVATED SD RATIO AT 4.13, NL MCA DOPPLERS, NANCY 7.9 CMAssessment: IUP 32 4/7 WEEKS, SEVERE IUGR, BOREDERLINE LOW NANCY, ELEVATED SD ON UA DOPPLERSPlan: continue current managmnt, betamethasone admin, surveillance, DELIVER FOR NON REASSURING TESTING at 1713 RPT #:[id number] OF REPORT PRProgress Rsji1825-74-94J26:09:00F.PXOO22225 [id number] for patient rafhIZCUUXXTBKGJJE1578-04-59S39:13 :23 [facility] 2019-08-03 20:46:00 UUfbanqhodo91813659K C6uKIVnWjEZoUi pAHjF7CXMB3HINsNN8pwAZQxrQwr23E0YT H5Y9H6Smy8cTJNw9711-58-14C63:46:00 [facility] ([facility])OB Admission / H PREPORT#:[id number] REPORT STATUS: SignedDATE:08/03/19 TIME: 2045 PATIENT: ANJELICA NAVARRO UNIT #: [id number]#: [id number] [address] [birth year] AGE: 28 SEX: F ATTEND: Isaiah Chase [facility] AUTHOR: Isaiah Chase MD * ALL edits or amendments must be made on the electronic/computer document * OB Admission H P HxChief complaint: SMALL BABYHPI:28 y old at 32 3/7 weeks who was admitted due to severe IUGR and worsening of elevated SD ratio at Dr Fernández's office. On 08/03 EFW was 1244 gms at 9% with eleavted SD. Yesterday, at Dr Fernández's office, EFW was down to 3% and SD ratio went up to 4.5 (3.3 on 08/03). POHX: SAB X 1 and x 1 at termPast medical history: denies PMHPast surgical history: denies PSHSocial history: no alcohol use, no tobacco use, no drug useMedications:Home Medications:SCOPOLAMINE (TRANSDERM-SCOP 1.5 MG) 1 PATCH TRANSDERM ONCE AllergiesCoded Allergies:No Known Allergies (08/02/19) Review of SystemsConstitutional:Denies: chills. Skin:Denies: abrasion. Allergy/Immun:Denies: allergic reaction. Eyes:Denies: redness. ENT:Denies: ear drainage. Respiratory:Denies: NORIEGA (dyspnea on exertion). Cardiovascular:Denies: chest pain. GI:Denies: abdominal pain. :Denies: dysuria. Musculoskeletal:Denies: arthritis. Objective GeneralVS:Last Documented: Result Date Time B/P Mean 95.0 08/03 2052 B/P 127/76 08/03 2052 Pulse 93 08/03 2052 Pulse Ox 100 08/03 1412 Temp 98.3 08/03 1412 Resp 18 08/03 0948 Vital Signs Date Temp Pulse Resp B/P B/P Mean Pulse Ox FiO2 08/02-08/03 97.8-98.3 77-96 16-18 121-128/69-76 89.0-95.0 100 Patient Weight Weight (lb): 128Weight (oz): Weight (kg): 58.06 Physical ExamHEENT: normocephalic w/o injuryCardiac: regular rate and rhythmLungs: clear to auscultationBreasts: deferredNeuro: Exam: alert, oriented x3, normal speechAbdomen: gravid, soft, no abnormal tenderness Diagnosis, Assessment Plan Diagnosis, Assessment PlanAssessment/Impression: IUP 32 3/7 WEEKS with worsening IUGR and elevated SD on UA Dopplers, at risk for demisePlan: admit to inpatient, betamethasone admin, surveillance, possible delivery at 34 weeks, inpatient management at 2114 RPT #:[id number] OF REPORT HPHistory and physical yrslogovxwd8510-02-23P09:46:00F.PD ES41566268-4001EXNesghvcis for patient kemjJRHVGRKNMFITES7789-23-07R25:14 :52 [facility] 2019-08-03 17:03:00 UTfdcksykls932898389 ie1OopabQbHgPt 61i93jtURcykLE8/8ecZri/7T0FxNWkpiY ZFveLoXlvHKRsAH2383-18-31T57:03:00 [facility] ([facility])DT Consult NoteREPORT#:[id number] REPORT STATUS: SignedDATE:08/03/19 TIME: 1703 PATIENT: ANJELICA NAVARRO UNIT #: [id number]#: [id number] ROOM/BED: [facility]-ADOB: [birth year] AGE: 28 SEX: F ATTEND: Isaiah Chase [facility] AUTHOR: Ko Velasco DO * ALL edits or amendments must be made on the electronic/computer document * CONSULT NOTENote:Neonatology Consult Note I was called to the bedside to discuss the expectation and complications of prematurity at 32 weeks' gestation age. We discussed the events surrounding the delivery and that the resuscitation team would be present for delivery. The infant will be admitted to either the Advanced Care or Intermediate Care NICU, level of care determined if significant respiratory distress present. The complications of prematurity and treatments for a 32 week discussed with the family includes but not limited to: - respiratory distress syndrome due to immature lungs (and need for surfactant, invasive or non- invasive mechanical ventilation, and supplemental oxygen), - risk of infection (and need for IV antibiotic therapy), - premature feeding pattern (and need for gavage feedings, TPN), - jaundice (and need for phototherapy), - temperature instability (and need for thermoregulatory support via incubator), - slightly increased risk for NDI at late delivery compared to term. We also discussed the NICU visitation policy, expected length of stay and discharge criteria. Questions were answered. Our group appreciates theopportunity to participate in the care of this family and baby. Please don't hesitate to call us back for more questions and discussions, or even at a later gestation should this persist so we can revisit this consult. Thank you. The time spent on this consultation was 40 minutes, of which more than 50% was spent directly speaking with the mother. Signature:Ko Velasco DO at 1704 RPT #:[id number] OF REPORT EMKadqqvbdesgn2481-07-45T72:03:00F .KTCZ07796451-4900MKArfxmyjrk for patient utiiUIFLYTCJYGRRCZ2603-51-86I67:04 :35 [facility]
--- NOTE | 2023-12-26 15:43 | ER ---
Nurse's Notes [facility] Name: Jade Murillo Age: 33 yrs Sex: Female : 1990 Arrival Date: 12/26/2023 Time: 13:10 Bed 11 Private MD: Diagnosis: Viral syndrome Presentation: 12/26 13:32 Chief complaint: Patient states: had a fever and a headache but it went away, T-max ko1 102, last fever was yesterday. Went to urgent care in [place], was tested for flu and covid which were negative. has back pain mainly at night and legs get weak when standing for a long period of time. Coronavirus screen: At this time, the client does not indicate any symptoms associated with coronavirus-19. Ebola Screen: No symptoms or risks identified at this time. Initial Sepsis Screen: Does the patient meet any 2 criteria? No. Patient's initial sepsis screen is negative. Does the patient have a suspected source of infection? No. Patient's initial sepsis screen is negative. Risk Assessment: Do you want to hurt yourself or someone else? Patient reports no desire to harm self or others. Onset of symptoms is unknown. 13:32 Method Of Arrival: Ambulatory ko1 13:32 Acuity: KEVYN 4 ko1 Triage Assessment: 13:37 General: Appears in no apparent distress. Behavior is calm, cooperative, appropriate ko1 for age. Pain: Complains of pain in back, right leg and left leg. Historical: - Allergies: 13:37 No Known Allergies; ko1 - Home Meds: 13:37 None [Active]; ko1 - PMHx: 13:37 None; ko1 - PSHx: 13:37 section; Cholecystectomy; D\T\C; ko1 - Immunization history:: Adult Immunizations up to date. - Social history:: Smoking status: Patient denies any tobacco usage or history of. - Family history:: not pertinent. Screenin:04 [facility] ED Fall Risk Assessment (Adult) History of falling in the last 3 months, bp including since admission No falls in past 3 months (0 pts). Abuse screen: Denies threats or abuse. Denies injuries from another. Nutritional screening: No deficits noted. Tuberculosis screening: No symptoms or risk factors identified. Assessment: 16:04 Reassessment: IN HOME AMBULATORY. Neuro: Level of Consciousness is awake, alert, obeys bp commands, Oriented to Appropriate for age. Vital Signs: 13:32 BP 120 / 81; Pulse 83; Resp 16; Temp 97.6; Pulse Ox 100% ; ko1 ED Course: 13:14 Patient arrived in ED. ra3 13:17 Zaire Wolf MD is Attending Physician. rt 13:37 Triage completed. ko1 13:37 Arm band placed on right wrist. Patient placed in an exam room, on a stretcher, Patient ko1 notified of wait time. 14:18 Vincent Cooper, RN is Primary Nurse. bp 16:04 Patient has correct armband on for positive identification. Provided Education on: N/A. bp 16:04 No provider procedures requiring assistance completed. Patient did not have IV access bp during this emergency room visit. Administered Medications: No medications were administered Medication: 16:04 VIS not applicable for this client. bp Outcome: 15:43 Discharge ordered by MD. rt 16:04 Discharged to home ambulatory, with family, bp 16:04 Condition: stable 16:04 Discharge instructions given to patient, Instructed on discharge instructions, follow up and referral plans. Demonstrated understanding of instructions, follow-up care, 16:06 Patient left the ED. bp Signatures: Vincent Cooper, RN RN bp Jada Vallecillo RN RN ko1 Zaire Wolf MD MD rt Angelique Klein ra3 Corrections: (The following items were deleted from the chart) 16:06 16:04 Discharged to home ambulatory, with family, bp bp 16:06 16:04 Discharge instructions given to patient, Instructed on discharge instructions, bp follow up and referral plans. medication usage, Demonstrated understanding of instructions, follow-up care, medications, Prescriptions given X 1, bp
--- NOTE | 2023-12-26 15:43 | EDPHYS ---
Physician Documentation [facility] Name: Jade Murillo Age: 33 yrs Sex: Female : 1990 Arrival Date: 12/26/2023 Time: 13:10 Bed 11 Private MD: ED Physician Zaire Wolf HPI: 12/26 14:47 This 33 yrs old Black Female presents to ER via Ambulatory with complaints of Neck and rt Upper Back Pain. 14:47 Patient had a headache and fever, reportedly on , went to urgent care had a rt negative flu, COVID test. Medicines improved. She is currently taking TheraFlu. States that she had some back pain earlier today, however, that is better. She was requesting repeat flu testing. She reports nasal congestion, cough, denies other acute complaints, symptoms are mild in severity, no other aggravating or alleviating factors.. Historical: - Allergies: 13:37 No Known Allergies; ko1 - Home Meds: 13:37 None [Active]; ko1 - PMHx: 13:37 None; ko1 - PSHx: 13:37 section; Cholecystectomy; D\T\C; ko1 - Immunization history:: Adult Immunizations up to date. - Social history:: Smoking status: Patient denies any tobacco usage or history of. - Family history:: not pertinent. ROS: 14:47 Cardiovascular: Negative for chest pain, palpitations, and edema, Abdomen/GI: Negative rt for abdominal pain, nausea, vomiting, diarrhea, and constipation, MS/Extremity: Negative for injury and deformity, Skin: Negative for injury, rash, and discoloration, 14:47 Constitutional: Positive for body aches, fever, 14:47 ENT: Positive for rhinorrhea, Negative for ear pain, 14:47 Respiratory: Positive for cough, Negative for shortness of breath, 14:47 Back: Positive for pain with movement, Negative for injury or acute deformity, Exam: 14:47 Constitutional: This is a well developed, well nourished patient who is awake, alert, rt and in no acute distress. Head/Face: Normocephalic, atraumatic. Chest/axilla: Normal chest wall appearance and motion. Nontender with no deformity. No lesions are appreciated. Cardiovascular: Regular rate and rhythm with a normal S1 and S2. No gallops, murmurs, or rubs. Normal PMI, no JVD. No pulse deficits. Respiratory: Lungs have equal breath sounds bilaterally, clear to auscultation and percussion. No rales, rhonchi or wheezes noted. No increased work of breathing, no retractions or nasal flaring. Abdomen/GI: Soft, non-tender, with normal bowel sounds. No distension or tympany. No guarding or rebound. No evidence of tenderness throughout. Back: No spinal tenderness. No costovertebral tenderness. Full range of motion. Skin: Warm, dry with normal turgor. Normal color with no rashes, no lesions, and no evidence of cellulitis. MS/ Extremity: Pulses equal, no cyanosis. Neurovascular intact. Full, normal range of motion. Neuro: Awake and alert, GCS 15, oriented to person, place, time, and situation. Cranial nerves II-XII grossly intact. Motor strength 5/5 in all extremities. Sensory grossly intact. Cerebellar exam normal. Normal gait. Psych: Awake, alert, with orientation to person, place and time. Behavior, mood, and affect are within normal limits. Vital Signs: 13:32 BP 120 / 81; Pulse 83; Resp 16; Temp 97.6; Pulse Ox 100% ; ko1 MDM: 13:39 Patient medically screened. rt 15:48 Differential diagnosis: Flu, viral syndrome. Data reviewed: vital signs, nurses notes, rt lab test result(s). Test considered but Not performed: X-ray: Clear breath sounds, low suspicion for pneumonia, x-ray not indicated. Counseling: I had a detailed discussion with the patient and/or guardian regarding the historical points, exam findings, and any diagnostic results supporting the discharge/admit diagnosis, lab results, the need for outpatient follow up. 12/26 13:42 Order name: Influenza Screen (a \T\ B); Complete Time: 15:40 rt Administered Medications: No medications were administered Disposition Summary: 12/26/23 15:43 Discharge Ordered Notes: Location: Home rt Problem: new rt Symptoms: have improved rt Condition: Stable rt Diagnosis - Viral syndrome rt Followup: rt - With: Private Physician - When: 2 - 3 days - Reason: Discharge Instructions: - Discharge Summary Sheet rt - Viral Illness, Adult rt Forms: - Medication Reconciliation Form rt - Thank You Letter rt - Antibiotic Education rt - Prescription Opioid Use rt - Patient Portal Instructions rt - Leadership Thank You Letter rt Signatures: Dispatcher [employer] Jada Carter, RN RN ko1 Zaire Wolf MD MD rt
[2023-12-26 16:28] VITALS: BP 120/81; TEMP 97.6; O2SAT 100
== END ==
LOC: ER 13:10
DX: B34.9 Viral infection, unspecified (principal)
CPT/HCPCS: 87804

== ENCOUNTER 2024-02-28 19:26 | Emergency (ER) | payer OTHER ==
--- OUTSIDE RECORDS SUMMARY | 2024-02-28 19:33 | XMS REPORT | Continuity of Care Document ---
Author Name Unknown Address [address] [place] [address] [facility] thconnect Address [address] [place] [address] Care Team Providers Care Business Continuity Specialist Name Role Phone GUS SMITHFaniEber Primary Care Physician DEEPA Anguiano Attending Clinician Unavailable LAB90 Attending Clinician Unavailable Ravi_Azalia Attending Clinician Unavailable CLARICE SMITH Attending Clinician Unavailab CLARICE Amaral Attending Clinician Unavailab PATRICIA Lopes Attending Clinician Unavailable JOSEPH DOWLING Attending Clinician Unavailable TETE GALAN Attending Dominickia zoraida Unavailable CEDRICK CARROLL Attending Clinician Unavaila ble 2, [facility] Attending Clinician Unavailable ANNA GUNTER Attending Clinician Unavailveronika ALFORD Attending Clinician Unavailab YARY Rondon Attending Clinician Unavailable AYAZ DURAND Attending Clinician Unavail able OTRY RODRIGUES Attending Clinician Unavaila MIKE East Attending Clinician [...] Number Effective Date Expirati on Date Source [facility] LIANE MONZON [facility] 9 [id number] 2023 00:00:00 [facility] [id number] [facility] [place] ST[place] [id number] 2022 00:00:00 [facility] (MEDICAID REPLACEMENT - HMO) [id number] 2022 00:00:00 2023 00:00:00 [place] [place] [id number] [place] [id number] 2019 00:00:00 RELIANCE STANDARD - [facility] [address] MEDICAL LIMITED PLAN - MULTIPLAN [id number] Problems Condition Name Condition Details Condition Category Status Onset Date Resolution Date Last Treatment Date Treating Clinician Comments Source Acute cough Acute cough Disease Active 1 00:00: 00 Tete Seybold - Externa l Intramural leiomyoma of uterus Intramural Leiomyoma of Uterus Problem Active 03-24 00:00: 00 [facility] Gonorrhea Gonorrhea Problem Active 2019-11 0 00:00: 00 [facility] Uses transderma l contracept ion Uses Transderma l Contracept ion Problem Active 08-05 00:00: 00 [facility] Gynecologi c examinatio n Gynecologi c Examinatio n Problem Active 08-05 00:00: 00 [facility] Venereal disease screening Venereal Disease Screening Problem Active 08-05 00:00: 00 [facility] Irregular intermenst rual bleeding Irregular Intermenst rual Bleeding Problem Active 04-23 00:00: 00 [facility] Initiation of transderma l contracept ion done Initiation of Transderma l Contracept ion Done Problem Active 04-23 00:00: 00 [facility] care Care Problem Active 2018-11 00:00: 00 [facility] Initiation of depot contracept ion done Initiation of Depot Contracept ion Done Problem Active 2018-11 00:00: 00 [facility] Contracept ion education Contracept ion Education Problem Active 2018-11 00:00: 00 [facility] Small for gestationa l age fetus Small for Gestationa l Age Fetus Problem Active 07-05 00:00: 00 [facility] Unintentio nal weight loss Unintentio nal Weight Loss Problem Active 03-14 00:00: 00 [facility] Severe hyperemesi s gravidarum Severe Hyperemesi s Gravidarum Problem Active 02-14 00:00: 00 [facility] No known active problems No known active problems Disease [facility] Allergies, Adverse Reactions, Alerts Allergy Name Allergy Type Status Severity Reaction(s) Onset Date Inactive Date Treating Clinician Comments Source No Known Allergie s DA Active U 08-02 00:00: 00 [facility] NO KNOWN ALLERGIE S Drug Class Active [facility] Social History Social Habit Start Date Stop Date Quantity Comments Source Sexual orientation Patrice alfaro Semeganelvira - External Alcoholic beverage intake 2024-02-24 00:00:00 2024-02-24 00:00:00 Lifetime non-drinker (finding) Tete Jacky - External Alcohol intake 2024-01-25 00:00:00 2024-01-25 00:00:00 Lifetime non-drinker (finding) Tete Rico - External Tobacco use and exposure 2023-12-07 00:00:00 2023-12-07 00:00:00 Smokeless tobacco non-user Tete Rico - External History of Social function 2023-12-07 00:00:00 2023-12-07 00:00:00 Tete Rico - External Exposure to SARS-CoV-2 (event) 2022-11-10 00:00:00 2022-11-20 13:38:00 Not sure [facility] Sex assigned at 1990 00:00:00 1990 00:00:00 Tete Rico - External Smoking Status Start Date Stop Date Source Tobacco smoking consumption unknown Tete Rico - External Never smoked tobacco Tete Rico - External Medications Ordered Medication Name Filled Medication Name Start Date Stop Date Current Medication? Ordering Clinician Indication Dosage Frequency Signature (SIG) Comments Components Source Famotidine (PEPCID) 20 MG oral tablet 02-23 09:24: 05 Yes 20mg Take 1 tablet (20 mg total) by mouth 2 times daily. Tete vieyra Sertraline HCl 50 MG oral Tablet 02-23 00:00: 00 Yes [id number] 50mg Take 1 tablet (50 mg total) by mouth daily. Tete Moreno Externa azalia Trazodone HCl 50 MG oral Tablet 02-23 00:00: 00 Yes [id number] 50mg Take 1 tablet (50 mg total) by mouth nightly. Tete vieyra Twirla 120-30 MCG/24HR transdermal PATCH WEEKLY 01-31 00:00: 00 Yes APPLY ONE (1) PATCH TO THE SKIN EVERY WEEK. Tete vieyra ACETAMINOPH EN-CAFF-BUT ALBITAL 50-325-40 MG oral Tablet 01-24 00:00: 00 Yes [id number] 1{tbl} Q4H Take 1 tablet by mouth every 4 hours as needed for pain. Tete vieyra Diclofenac Sodium 75 MG oral Tablet Delayed Response 01-24 00:00: 00 Yes [id number] 75mg Take 1 tablet (75 mg total) by mouth 2 times daily. Tete vieyra Sertraline HCl 25 MG oral Tablet 01-24 00:00: 00 02-23 00:00 :00 No [id number] 25mg Take 1 tablet (25 mg total) by mouth daily. Tete vieyra Zafemy 150-35 MCG/24HR transdermal PATCH WEEKLY - 00:00: 00 Yes 1{patch } Place 1 patch onto the skin once a week. Tete vieyra Famotidine (Pepcid) 20 MG oral tablet 12-07 00:00: 00 01-24 00:00 :00 No [id number] 20mg Take 1 tablet (20 mg total) by mouth 2 times daily. Tete vieyra Benzonatate (Tessalon Perles) 100 MG oral Capsule 12-07 00:00: 00 01-24 00:00 :00 No [id number] 100mg [id number] 3D Take 1 capsule (100 mg total) by mouth 3 times daily as needed for cough. Tete vieyra methylPREDN ISolone 4 MG oral Tablet Therapy Pack 11-30 00:00: 00 12-07 00:00 :00 No [id number] 1{piter} Take 1 piter by mouth See Admin Instructio ns Use as directed. Tete vieyra Azithromyci n 250 MG oral Tablet 11-30 00:00: 00 12-07 00:00 :00 No [id number] Take 2 tablets by mouth on day 1 then 1 tablet by mouth daily for 4 days thereafter .. Tete vieyra medroxyprog esterone 150 mg/mL intramuscul ar suspensionI nject 1 mL every 3 months by intramuscul ar route. medroxyprog esterone 150 mg/mL intramuscul ar suspensionI nject 1 mL every 3 months by intramuscul ar route. 2022-11 214 10:39: 54 No medroxypro gesterone 150 mg/mL intramuscu lar suspension Inject 1 mL every 3 months by intramuscu lar route. [facility] EPINEPHrine 0.15 mg/0.3 mL injection 11-12 00:00: 00 Yes INJECT 0.3 ML(S) INTRAMUSCU LARLY NEEDED FOR ANAPHYLAXI S. [facility] medroxyprog esterone 10 mg tablet TAKE ONE (1) TABLET(S) BY MOUTH ONCE A DAY. medroxyprog esterone 10 mg tablet TAKE ONE (1) TABLET(S) BY MOUTH ONCE A DAY. No medroxypro gesterone 10 mg tablet TAKE ONE (1) TABLET(S) BY MOUTH ONCE A DAY. [facility] medroxyprog esterone 150 mg/mL intramuscul ar suspension Inject 1 mL every 3 months by intramuscul ar route. medroxyprog esterone 150 mg/mL intramuscul ar suspension Inject 1 mL every 3 months by intramuscul ar route. No 1mL medroxypro gesterone 150 mg/mL intramuscu lar suspension Inject 1 mL every 3 months by intramuscu lar route. [facility] cholecalcif jeremiah (vitamin D3) 1,250 mcg (50,000 unit) capsule TAKE ONE (1) CAPSULE(S) BY MOUTH ONCE WEEKLY. cholecalcif jeremiah (vitamin D3) 1,250 mcg (50,000 unit) capsule TAKE ONE (1) CAPSULE(S) BY MOUTH ONCE WEEKLY. No cholecalci ferol (vitamin D3) 1,250 mcg (50,000 unit) capsule TAKE ONE (1) CAPSULE(S) BY MOUTH ONCE WEEKLY. [facility] medroxyprog esterone 150 mg/mL intramuscul ar syringe INJECT ONE (1) ML(S) INTO THE MUSCLE EVERY 3 MONTHS. medroxyprog esterone 150 mg/mL intramuscul ar syringe INJECT ONE (1) ML(S) INTO THE MUSCLE EVERY 3 MONTHS. No medroxypro gesterone 150 mg/mL intramuscu lar syringe INJECT ONE (1) ML(S) INTO THE MUSCLE EVERY 3 MONTHS. [facility] Provera 10 mg tablet Take 1 tablet every day by oral route for 14 days. Provera 10 mg tablet Take 1 tablet every day by oral route for 14 days. No 1 Q1D Provera 10 mg tablet Take 1 tablet every day by oral route for 14 days. [facility] cholecalcif jeremiah (vitamin D3) 1,250 mcg (50,000 unit) capsule TAKE ONE (1) CAPSULE(S) BY MOUTH ONCE WEEKLY. cholecalcif jeremiah (vitamin D3) 1,250 mcg (50,000 unit) capsule TAKE ONE (1) CAPSULE(S) BY MOUTH ONCE WEEKLY. No cholecalci ferol (vitamin D3) 1,250 mcg (50,000 unit) capsule TAKE ONE (1) CAPSULE(S) BY MOUTH ONCE WEEKLY. [facility] medroxyprog esterone 10 mg tablet TAKE ONE (1) TABLET(S) BY MOUTH ONCE A DAY FOR 14 DAYS. medroxyprog esterone 10 mg tablet TAKE ONE (1) TABLET(S) BY MOUTH ONCE A DAY FOR 14 DAYS. No medroxypro gesterone 10 mg tablet TAKE ONE (1) TABLET(S) BY MOUTH ONCE A DAY FOR 14 DAYS. [facility] medroxyprog esterone 150 mg/mL intramuscul ar suspension Inject 1 mL every 3 months by intramuscul ar route. medroxyprog esterone 150 mg/mL intramuscul ar suspension Inject 1 mL every 3 months by intramuscul ar route. No 1mL medroxypro gesterone 150 mg/mL intramuscu lar suspension Inject 1 mL every 3 months by intramuscu lar route. [facility] medroxyprog esterone 150 mg/mL intramuscul ar syringe INJECT ONE (1) ML(S) INTO THE MUSCLE EVERY 3 MONTHS. medroxyprog esterone 150 mg/mL intramuscul ar syringe INJECT ONE (1) ML(S) INTO THE MUSCLE EVERY 3 MONTHS. No medroxypro gesterone 150 mg/mL intramuscu lar syringe INJECT ONE (1) ML(S) INTO THE MUSCLE EVERY 3 MONTHS. [facility] methylpredn isolone 4 mg tablets in a dose pack TAKE BY MOUTH DIRECTED. methylpredn isolone 4 mg tablets in a dose pack TAKE BY MOUTH DIRECTED. No methylpred nisolone 4 mg tablets in a dose pack TAKE BY MOUTH DIRECTED. [facility] Xulane 150 mcg-35 mcg/24 hr transdermal patch Apply 1 patch every week by transdermal route. Xulane 150 mcg-35 mcg/24 hr transdermal patch Apply 1 patch every week by transdermal route. No 1patch( es) Q1W Xulane 150 mcg-35 mcg/24 hr transderma l patch Apply 1 patch every week by transderma l route. [facility] Vital Signs Vital Name Observation Time Observation Value Comments S ource Systolic blood pressure 2024-02-24 14:20:00 124 mm[Hg] Tete Seybo ld - External Diastolic blood pressure 2024-02-24 14:20:00 74 mm[Hg] Tete Seybo ld - External Heart rate 2024-02-24 14:20:00 82 /min Kelse y Seybold - External Body temperature 2024-02-24 14:20:00 36.89 Kiley Tete Seybold - External Respiratory rate 2024-02-24 14:20:00 14 /min Tete Seybold - External Body height 2024-02-24 14:20:00 162.6 cm Massiel ey Seybold - External Body weight 2024-02-24 14:20:00 70.761 kg Massiel ey Seybold - External BMI 2024-02-24 14:20:00 26.78 kg/m2 Massiel ey Seybold - External Systolic blood pressure 2024-01-25 18:16:00 128 mm[Hg] Tete Seybo ld - External Diastolic blood pressure 2024-01-25 18:16:00 74 mm[Hg] Tete Seybo ld - External Heart rate 2024-01-25 18:16:00 77 /min Kelse y Seybold - External Body temperature 2024-01-25 18:16:00 36.56 Kiley Tete Seybold - External Respiratory rate 2024-01-25 18:16:00 14 /min Tete Seybold - External Body height 2024-01-25 18:16:00 162.6 cm Massiel ey Seybold - External Body weight 2024-01-25 18:16:00 71.668 kg Massiel ey Seybold - External BMI 2024-01-25 18:16:00 27.12 kg/m2 Massiel ey Seybold - External BP Systolic 2023-12-17 00:00:00 130 mm[Hg] [facility] BMI (Body Mass Index) 2023-12-17 00:00:00 26.9 kg/m2 [facility] BP Diastolic 2023-12-17 00:00:00 77 mm[Hg] [facility] Body Weight 2023-12-17 00:00:00 156.7 [lb_av] [facility] Height 2023-12-17 00:00:00 64 [in_i] [facility] Systolic blood pressure 2023-12-07 [...] External Body Weight 2023-10-21 00:00:00 156.3 [lb_av] [facility] Height 2023-10-21 00:00:00 64 [in_i] [facility] BP Systolic 2023-10-21 00:00:00 132 mm[Hg] [facility] BP Diastolic 2023-10-21 00:00:00 89 mm[Hg] [facility] BMI (Body Mass Index) 2023-10-21 00:00:00 26.8 kg/m2 [facility] Body Weight 2023-06-29 00:00:00 151 [lb_av] [facility] BP Systolic 2023-06-29 00:00:00 133 mm[Hg] [facility] Height 2023-06-29 00:00:00 64 [in_i] [facility] BMI (Body Mass Index) 2023-06-29 00:00:00 25.9 kg/m2 [facility] BP Diastolic 2023-06-29 00:00:00 88 mm[Hg] [facility] Systolic blood pressure 2022-11-20 19:55:00 128 mm[Hg] [facility] Diastolic blood pressure 2022-11-20 19:55:00 76 mm[Hg] [facility] Heart rate 2022-11-20 19:55:00 82 /min [facility] Body temperature 2022-11-20 19:55:00 36.67 Kiley [facility] Respiratory rate 2022-11-20 19:55:00 18 /min [facility] Body height 2022-11-20 19:55:00 162.6 cm [facility] Body weight 2022-11-20 19:55:00 72.576 kg [facility] BMI 2022-11-20 19:55:00 27.46 kg/m2 [facility] Oxygen saturation in Arterial blood by Pulse oximetry 2022-11-20 19:55:00 100 /min [facility] BP Diastolic 2022-06-22 00:00:00 82 mm[Hg] [facility] Height 2022-06-22 00:00:00 64 [in_i] [facility] BMI (Body Mass Index) 2022-06-22 00:00:00 26 kg/m2 [facility] BP Systolic 2022-06-22 00:00:00 131 mm[Hg] [facility] Body Weight 2022-06-22 00:00:00 151.4 [lb_av] [facility] BP Diastolic 2022-05-08 00:00:00 92 mm[Hg] [facility] Height 2022-05-08 00:00:00 64 [in_i] [facility] BMI (Body Mass Index) 2022-05-08 00:00:00 25.9 kg/m2 [facility] BP Systolic 2022-05-08 00:00:00 142 mm[Hg] [facility] Body Weight 2022-05-08 00:00:00 151 [lb_av] [facility] Height 2022-03-18 00:00:00 64 [in_i] [facility] BP Diastolic 2021-12-18 00:00:00 88 mm[Hg] [facility] Height 2021-12-18 00:00:00 64 [in_i] [facility] BMI (Body Mass Index) 2021-12-18 00:00:00 25.5 kg/m2 [facility] BP Systolic 2021-12-18 00:00:00 138 mm[Hg] [facility] Body Weight 2021-12-18 00:00:00 148.4 [lb_av] [facility] Height 2021-09-17 00:00:00 64 [in_i] [facility] BMI (Body Mass Index) 2021-09-17 00:00:00 23.2 kg/m2 [facility] Body Weight 2021-09-17 00:00:00 135 [lb_av] [facility] BP Diastolic 2021-09-02 00:00:00 75 mm[Hg] [facility] Height 2021-09-02 00:00:00 64 [in_i] [facility] BMI (Body Mass Index) 2021-09-02 00:00:00 23 kg/m2 [facility] BP Systolic 2021-09-02 00:00:00 119 mm[Hg] [facility] Body Weight 2021-09-02 00:00:00 134.2 [lb_av] [facility] BP Diastolic 2021-08-19 00:00:00 87 mm[Hg] [facility] Height 2021-08-19 00:00:00 64 [in_i] [facility] BMI (Body Mass Index) 2021-08-19 00:00:00 22.6 kg/m2 [facility] BP Systolic 2021-08-19 00:00:00 124 mm[Hg] [facility] Body Weight 2021-08-19 00:00:00 131.9 [lb_av] [facility] BP Diastolic 2021-04-11 00:00:00 81 mm[Hg] [facility] Height 2021-04-11 00:00:00 64 [in_i] [facility] BMI (Body Mass Index) 2021-04-11 00:00:00 21.1 kg/m2 [facility] BP Systolic 2021-04-11 00:00:00 144 mm[Hg] [facility] Body Weight 2021-04-11 00:00:00 122.9 [lb_av] [facility] Height 2021-03-24 00:00:00 64 [in_i] [facility] BMI (Body Mass Index) 2021-03-24 00:00:00 20.9 kg/m2 [facility] BP Systolic 2021-03-24 00:00:00 127 mm[Hg] [facility] Body Weight 2021-03-24 00:00:00 122 [lb_av] [facility] BP Diastolic 2021-03-24 00:00:00 83 mm[Hg] [facility] BP Diastolic 2020-09-24 00:00:00 83 mm[Hg] [facility] Height 2020-09-24 00:00:00 64 [in_i] [facility] BMI (Body Mass Index) 2020-09-24 00:00:00 22.7 kg/m2 [facility] BP Systolic 2020-09-24 00:00:00 120 mm[Hg] [facility] Body Weight 2020-09-24 00:00:00 132.4 [lb_av] [facility] BP Diastolic 2020-08-20 00:00:00 70 mm[Hg] [facility] Height 2020-08-20 00:00:00 64 [in_i] [facility] BMI (Body Mass Index) 2020-08-20 00:00:00 22.6 kg/m2 [facility] BP Systolic 2020-08-20 00:00:00 131 mm[Hg] [facility] Body Weight 2020-08-20 00:00:00 131.5 [lb_av] [facility] BP Diastolic 2020-08-05 00:00:00 80 mm[Hg] [facility] Height 2020-08-05 00:00:00 64 [in_i] [facility] BMI (Body Mass Index) 2020-08-05 00:00:00 22.3 kg/m2 [facility] BP Systolic 2020-08-05 00:00:00 130 mm[Hg] [facility] Body Weight 2020-08-05 00:00:00 130 [lb_av] [facility] BP Diastolic 2020-04-23 00:00:00 82 mm[Hg] [facility] Height 2020-04-23 00:00:00 64 [in_i] [facility] BMI (Body Mass Index) 2020-04-23 00:00:00 23 kg/m2 [facility] BP Systolic 2020-04-23 00:00:00 128 mm[Hg] [facility] Body Weight 2020-04-23 00:00:00 134 [lb_av] [facility] BP Diastolic 2020-01-02 00:00:00 73 mm[Hg] [facility] Height 2020-01-02 00:00:00 64 [in_i] [facility] BMI (Body Mass Index) 2020-01-02 00:00:00 21.8 kg/m2 [facility] BP Systolic 2020-01-02 00:00:00 114 mm[Hg] [facility] Body Weight 2020-01-02 00:00:00 127.1 [lb_av] [facility] BP Diastolic 2019-09-19 00:00:00 78 mm[Hg] [facility] Height 2019-09-19 00:00:00 64 [in_i] [facility] BMI (Body Mass Index) 2019-09-19 00:00:00 21.8 kg/m2 [facility] BP Systolic 2019-09-19 00:00:00 122 mm[Hg] [facility] Body Weight 2019-09-19 00:00:00 127.2 [lb_av] [facility] BP Diastolic 2019-08-02 00:00:00 77 mm[Hg] [facility] Height 2019-08-02 00:00:00 64 [in_i] [facility] BMI (Body Mass Index) 2019-08-02 00:00:00 22 kg/m2 [facility] BP Systolic 2019-08-02 00:00:00 116 mm[Hg] [facility] Body Weight 2019-08-02 00:00:00 128 [lb_av] [facility] BP Diastolic 2019-07-19 00:00:00 76 mm[Hg] [facility] Height 2019-07-19 00:00:00 64 [in_i] [facility] BMI (Body Mass Index) 2019-07-19 00:00:00 21.8 kg/m2 [facility] BP Systolic 2019-07-19 00:00:00 117 mm[Hg] [facility] Body Weight 2019-07-19 00:00:00 127 [lb_av] [facility] BP Diastolic 2019-07-05 00:00:00 63 mm[Hg] [facility] Height 2019-07-05 00:00:00 64 [in_i] [facility] BMI (Body Mass Index) 2019-07-05 00:00:00 21.9 kg/m2 [facility] BP Systolic 2019-07-05 00:00:00 103 mm[Hg] [facility] Body Weight 2019-07-05 00:00:00 127.5 [lb_av] [facility] BP Diastolic 2019-06-05 00:00:00 76 mm[Hg] [facility] Height 2019-06-05 00:00:00 64 [in_i] [facility] BMI (Body Mass Index) 2019-06-05 00:00:00 20.9 kg/m2 [facility] BP Systolic 2019-06-05 00:00:00 106 mm[Hg] [facility] Body Weight 2019-06-05 00:00:00 122 [lb_av] [facility] BP Diastolic 2019-05-08 00:00:00 69 mm[Hg] [facility] Height 2019-05-08 00:00:00 64 [in_i] [facility] BMI (Body Mass Index) 2019-05-08 00:00:00 20.5 kg/m2 [facility] BP Systolic 2019-05-08 00:00:00 107 mm[Hg] [facility] Body Weight 2019-05-08 00:00:00 119.4 [lb_av] [facility] BP Diastolic 2019-04-10 00:00:00 81 mm[Hg] [facility] Height 2019-04-10 00:00:00 64 [in_i] [facility] BMI (Body Mass Index) 2019-04-10 00:00:00 19.3 kg/m2 [facility] BP Systolic 2019-04-10 00:00:00 119 mm[Hg] [facility] Body Weight 2019-04-10 00:00:00 112.5 [lb_av] [facility] BP Diastolic 2019-04-04 00:00:00 85 mm[Hg] [facility] Height 2019-04-04 00:00:00 64 [in_i] [facility] BMI (Body Mass Index) 2019-04-04 00:00:00 19.4 kg/m2 [facility] BP Systolic 2019-04-04 00:00:00 132 mm[Hg] [facility] Body Weight 2019-04-04 00:00:00 113 [lb_av] [facility] BP Diastolic 2019-03-14 00:00:00 87 mm[Hg] [facility] Height 2019-03-14 00:00:00 64 [in_i] [facility] BMI (Body Mass Index) 2019-03-14 00:00:00 19.1 kg/m2 [facility] BP Systolic 2019-03-14 00:00:00 124 mm[Hg] [facility] Body Weight 2019-03-14 00:00:00 111 [lb_av] [facility] BP Diastolic 2019-02-14 00:00:00 97 mm[Hg] [facility] Height 2019-02-14 00:00:00 64 [in_i] [facility] BMI (Body Mass Index) 2019-02-14 00:00:00 20.6 kg/m2 [facility] BP Systolic 2019-02-14 00:00:00 135 mm[Hg] [facility] Body Weight 2019-02-14 00:00:00 120 [lb_av] [facility] BP Diastolic 2019-02-07 00:00:00 83 mm[Hg] [facility] Height 2019-02-07 00:00:00 64 [in_i] [facility] BMI (Body Mass Index) 2019-02-07 00:00:00 22 kg/m2 [facility] BP Systolic 2019-02-07 00:00:00 124 mm[Hg] [facility] Body Weight 2019-02-07 00:00:00 128.4 [lb_av] [facility] BP Diastolic 2019-01-26 00:00:00 84 mm[Hg] [facility] Height 2019-01-26 00:00:00 64 [in_i] [facility] BMI (Body Mass Index) 2019-01-26 00:00:00 22.4 kg/m2 [facility] BP Systolic 2019-01-26 00:00:00 128 mm[Hg] [facility] Body Weight 2019-01-26 00:00:00 130.4 [lb_av] [facility] BP Diastolic 2019-01-03 00:00:00 76 mm[Hg] [facility] Height 2019-01-03 00:00:00 64 [in_i] [facility] BMI (Body Mass Index) 2019-01-03 00:00:00 22.4 kg/m2 [facility] BP Systolic 2019-01-03 00:00:00 118 mm[Hg] [facility] Body Weight 2019-01-03 00:00:00 130.3 [lb_av] [facility] Procedures Procedure Date / Time Performed Performing Clinician Source FREE T4 2022-11-20 20:48:00 [facility] THYROID STIMULATING HORMONE 2022-11-20 20:48:00 [facility] COMP. METABOLIC PANEL ([id number]) 2022-11-20 20:48:00 [facility] LIPID PANEL ([id number])(TOTAL CHOLESTEROL, TRIGLYCERIDES, HDL) 2022-11-20 20:48:00 [facility] CBC WITH DIFF 2022-11-20 20:48:00 [facility] GLYCOSYLATED HEMOGLOBIN (A1C) 2022-11-20 20:48:00 [facility] FREE T3 2022-11-20 20:48:00 [facility] US, transvaginal 2021-03-24 00:00:00 [facility] US, obstetric, limited 2019-08-02 00:00:00 [facility] US(FBP)W/0 NON STRESS TEST 2019-08-02 00:00:00 [facility] ULTRASOUND REPEAT 2019-07-05 00:00:00 [facility] US, obstetric, limited 2019-04-10 00:00:00 [facility] ULTRASOUND, UTERUS REAL TIME WITH IMAGE DOC, AND MATERNAL EVAL PLUS DETAILED ANATOMIC EXAMINATION, TRANSABDOMINAL APPROACH; SINGLE OR FIRST GESTATION 2019-04-10 00:00:00 [facility] US, obstetric, limited 2019-03-14 00:00:00 [facility] ULTRASOUND, UTERUS REAL TIME WITH IMAGE DOCUMENTAITON, TRANSVAGINAL 2019-02-14 00:00:00 [facility] ULTRASOUND, UTERUS REAL TIME WITH IMAGE DOCUMENTAITON, TRANSVAGINAL 2019-01-26 00:00:00 [facility] XR, hysterosalpingogram 2019-01-03 00:00:00 [facility] Cholecystectomy 2018-11-08 00:00:00 [facility] Dilation and Curettage 2014-09-08 00:00:00 [facility] Plan of Care Planned Activity Planned Date Details Comments Source Diagnostic Test Pending 2023-12-17 00:00:00 urinalysis, dipstick [code = urinalysis, dipstick] [facility] Diagnostic Test Pending 2023-12-17 00:00:00 test, urine [code = test, urine] [facility] Diagnostic Test Pending 2023-12-17 00:00:00 RPR (rapid plasma reagin), serum [code = RPR (rapid plasma reagin), serum] [facility] Diagnostic Test Pending 2023-12-17 00:00:00 HIV (1+2) Ab screen, serum [code = HIV (1+2) Ab screen, serum] [facility] Diagnostic Test Pending 2023-12-17 00:00:00 HBsAg (hepatitis B surface Ag), serum [code = HBsAg (hepatitis B surface Ag), serum] [facility] Diagnostic Test Pending 2023-12-17 00:00:00 STI panel [code = STI panel] [facility] Future Appointment 2024-07-03 09:00:[address]; [address], [place] [address] [facility] Instructions [facility] dical Group Encounters Start Date/Time End Date/Time Encounter Type Admission Type Attending Clinicians Care Facility Care Department Encounter ID Source 2024-03-29 11:00:00 2024-03-29 11:00:00 Outpatient DEEPA BENAVIDES TETE [id number] [facility] 2024-02-28 00:00:00 2024-02-28 00:00:00 Outpatient DEEPA BENAVIDES TETE [id number] [facility] 2024-02-25 00:00:00 2024-02-25 00:00:00 Outpatient DEEPA BENAVIDES TETE [id number] Tete [facility] 2024-02-24 10:15:00 2024-02-24 10:15:00 Outpatient LAB90 TETE TETE [id number] Tete [facility] 2024-02-24 09:30:00 2024-02-24 09:30:00 Outpatient DEEPA BENAVIDES TETE [id number] Tete [facility] 2024-02-09 00:00:00 2024-02-09 00:00:00 Outpatient Rutledge_L MMG MMG [id number] [facility] 2024-01-26 08:15:00 2024-01-26 08:15:00 Outpatient LAB90 TETE TETE [id number] Tete [facility] 2024-01-25 14:15:00 2024-01-25 14:15:00 Outpatient LAB90 TETE TETE [id number] Tete [facility] 2024-01-25 13:30:00 2024-01-25 13:30:00 Outpatient DEEPA BENAVIDES TETE CRUM [id number] Tete [facility] 2024-01-11 13:30:00 2024-01-11 13:30:00 Outpatient CLARICE MACKEY OGECHUKWU [facility] [id number] [facility] 2024-01-07 00:00:00 2024-01-07 00:00:00 Outpatient Rutledge_L MMG MMG [id number] [facility] 2023-12-28 00:00:00 2023-12-28 00:00:00 Outpatient Rutledge_L MMG MM[place] [id number] [facility] 2023-12-17 11:19:00 2023-12-17 11:19:00 Outpatient PATRICIA MCHUGH [facility] [id number] [facility] 2023-12-17 00:00:00 2023-12-17 00:00:00 Outpatient Rutledge_L MMG MMG [id number] [facility] 2023-12-17 00:00:00 2023-12-17 00:00:00 Patricia ThomasALEXANDER-: [address] [facility], [address], [place] [address] , Ph. [phone] MMG [facility] OBGYN [id number] [facility] 2023-12-07 14:30:00 2023-12-07 14:30:00 Outpatient JOSEPH DOWLING [id number] [facility] 2023-12-06 00:00:00 2023-12-06 00:00:00 Outpatient GROUP, TETE CRUM [id number] [facility] 2023-11-30 11:00:00 2023-11-30 11:00:00 Outpatient CEDRICK CARROLL [id number] [facility] 2023-11-23 09:30:00 2023-11-23 09:30:00 Outpatient CLARICE MACKEY OGECHUKWU [facility] [id number] [facility] 2023-10-21 00:00:00 2023-10-21 00:00:00 Anna Gunter MD: [address] [facility], [address], [place] [address] , Ph. [phone] [facility] [id number] [facility] 2023-10-20 00:00:00 2023-10-20 00:00:00 Outpatient Rutledge_L MMG MMG [id number] [facility] 2023-10-20 00:00:00 2023-10-20 00:00:00 Outpatient Rutledge_L MMG MMG [id number] [facility] 2023-10-13 09:07:18 2023-10-13 09:07:18 Outpatient SFA SFA [id number] Jose G Renteria 2023-07-22 00:00:00 2023-07-22 00:00:00 Outpatient Rutledge_L MMG MMG 0914 [facility] 2023-07-22 00:00:00 2023-07-22 00:00:00 Outpatient Rutledge_L MMG MM [id number] [facility] 2023-06-29 09:08:00 2023-06-29 09:08:00 Outpatient PATRICIA MCHUGH [facility] [id number] [facility] 2023-06-29 00:00:00 2023-06-29 00:00:00 Outpatient Rutledge_L MMG [facility] [id number] [facility] 2023-06-29 00:00:00 2023-06-29 00:00:00 LORENA SalmeronP-BC: [address] [facility], [address], [place] [address] , Ph. 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 Visit 2, Adc Lab Clarice Smith [facility] [id number] [facility] 2022-11-20 14:00:00 2022-11-20 14:34:54 Outpatient R CLARICE SMITH OGECHUKWU [facility] [id number] [facility] 2022-11-20 14:00:00 2022-11-20 14:34:54 Office Visit Clarice Smith [facility] [id number] [facility] 2022-10-23 00:00:00 2022-10-23 00:00:00 Outpatient Rutledge_L MMG MMG [id number] [facility] 2022-10-23 00:00:00 2022-10-23 00:00:00 Outpatient Rutledge_L MMG MMG [id number] [facility] 2022-10-23 00:00:00 2022-10-23 00:00:00 Outpatient Rutledge_L MMG MMG [id number] [facility] 2022-10-01 00:00:00 2022-10-01 00:00:00 Outpatient Rutledge_L MMG MMG [id number] [facility] 2022-09-25 00:00:00 2022-09-25 00:00:00 Outpatient Rutledge_L MMG MMG [id number] [facility] 2022-09-01 00:00:00 2022-09-01 00:00:00 Outpatient Rutledge_L MMG MMG [id number] [facility] 2022-08-05 00:00:00 2022-08-05 00:00:00 Outpatient Rutledge_L MMG MMG [id number] [facility] 2022-06-23 00:00:00 2022-06-23 00:00:00 Outpatient Rutledge_L MMG MMG [id number] [facility] 2022-06-22 00:00:00 2022-06-22 00:00:00 Tory Rodrigues MD: [address] [place] [address] , Ph. [phone] Rutledge_L MMG [facility] 0815 [facility] 2022-06-16 00:00:00 2022-06-16 00:00:00 Outpatient Rutledge_L MMG [facility] [id number] [facility] 2022-05-08 10:22:00 2022-05-08 10:22:00 Outpatient ANNA ORNELAS [facility] [id number] [facility] 2022-05-08 00:00:00 2022-05-08 00:00:00 Anna Gunter MD: [address] [facility] [address], [place] [address] , Ph. [phone] Rutledge_L MMG [facility] OBGY 07 [facility] 2022-03-18 00:00:00 2022-03-18 00:00:00 Anna Gunter MD: 600 [facility] [address] [place] [address] , Ph. [phone] Rutledge_L MMG [facility] 0511 [facility] 2021-12-23 09:19:00 2021-12-23 09:19:00 Outpatient Rutledge_L MMG [facility] 214 [facility] 2021-12-18 00:00:00 2021-12-18 00:00:00 Patricia Thomas [facility]: [address] [facility] [address] [place] [address] , Ph. [phone] MMG [facility] OBGYN 209 [facility] 2021-12-17 04:22:00 2021-12-17 04:22:00 Outpatient Rutledge_L MMG [facility] [id number] [facility] 2021-10-10 05:04:00 2021-10-10 05:04:00 Outpatient DICSANA_ TEETEE YATES [id number] [facility] 2021-09-17 00:00:00 2021-09-17 00:00:00 [facility] [address], [place] [address] , Ph. [phone] Rutledge_L MMG [facility] 1110 [facility] 2021-09-02 00:00:00 2021-09-02 00:00:00 Patricia Thomas [facility]: [address] [facility] [address], [place] [address] , Ph. [phone] Rutledge_L MMG [facility] 1026 [facility] 2021-08-27 11:50:00 2021-08-27 11:50:00 Outpatient Rutledge_L MMG MMG 1020 [facility] 2021-08-19 14:04:00 2021-08-19 14:04:00 Outpatient PATRICIA MCHUGH [facility] [id number] [facility] 2021-08-19 00:00:00 2021-08-19 00:00:00 Patricia Martha [facility]: [address] [facility] [address], [place] [address] , Ph. [phone] Rutledge_L MMG [facility] 1012 [facility] 2021-04-22 01:40:00 2021-04-22 01:40:00 Outpatient Rutledge_L MMG MMG [id number] [facility] 2021-04-14 14:56:00 2021-04-14 14:56:00 Outpatient ANNA ORNELAS [facility] [id number] [facility] 2021-04-11 00:00:00 2021-04-11 00:00:00 Anna Gunter MD: [address] [facility] [address], [place] [address] , Ph. [phone] Rutledge_L MMG [facility] 0604 [facility] 2021-03-24 00:00:00 2021-03-24 00:00:00 Anna Gunter MD: [address] [id number] , Ph. [phone] [facility] 0517 [facility] 2020-12-02 12:46:00 2020-12-02 12:46:00 Outpatient Rutledge_L MMG MMG 012 [facility] 2020-11-27 03:56:00 2020-11-27 03:56:00 Outpatient Rutledge_L MMG MMG [id number] [facility] 2020-11-25 02:38:00 2020-11-25 02:38:00 Outpatient Rutledge_L MMG MMG [id number] [facility] 2020-09-25 02:21:00 2020-09-25 02:21:00 Outpatient Rutledge_L MMG MMG [id number] [facility] 2020-09-24 00:00:00 2020-09-24 00:00:00 Tory Rodrigues MD: [address] [id number] , Ph. [phone] Rutledge_L MMG [facility] 1116 [facility] 2020-09-14 12:28:00 2020-09-14 12:28:00 Outpatient Rutledge_L MMG MMG [id number] [facility] 2020-08-20 00:00:00 2020-08-20 00:00:00 YOLIE Roa: [address] [address] , Ph. [phone] Rutledge_L MMG [facility] 1013 [facility] 2020-08-05 09:06:00 2020-08-05 09:06:00 Outpatient YARY CRUZ [facility] [id number] [facility] 2020-08-05 00:00:00 2020-08-05 00:00:00 Yary Marinelli, NP: [address] [facility] [address], [place] [address] , Ph. [phone] [facility]L [facility] 927 [facility] 2020-05-04 11:32:00 2020-05-04 11:32:00 Outpatient Rutledge_L MMG MMG [id number] [facility] 2020-04-23 00:00:00 2020-04-23 00:00:00 Yary Marinelli, NP: [address] [address] , Ph. [phone] Rutledge[facility]L [facility] 0616 [facility] 2020-02-12 05:07:00 2020-02-12 05:07:00 Outpatient Rutledge_L MMG MMG [id number] [facility] 2020-01-15 10:29:00 2020-01-15 10:29:00 Outpatient Rutledge_L MMG MMG [id number] [facility] 2020-01-05 09:41:00 2020-01-05 09:41:00 Outpatient Rutledge_L MMG MMG [id number] [facility] 2020-01-04 06:57:00 2020-01-04 06:57:00 Outpatient Rutledge_L MMG MMG 226 [facility] 2020-01-02 00:00:00 2020-01-02 00:00:00 Tory Rodrigues MD: 600 [facility] [address] [address] , Ph. [phone] Rutledge_L [facility] 224 [facility] 2019-12-19 03:47:00 2019-12-19 03:47:00 Outpatient [facility] 021 [facility] 2019-12-11 11:19:00 2019-12-11 11:19:00 Outpatient FLOR YATES [facility] [id number] [facility] 2019-11-21 15:26:00 2019-11-21 18:03:00 Emergency ER AYAZ DURAND [facility] [id number] [facility] 2019-09-19 00:00:00 2019-09-19 00:00:00 YOLIE Roa: [address], [place] [address] , Ph. [phone] [facility]12 [facility] 2019-08-02 00:00:00 2019-08-02 00:00:00 Tory Rodrigues MD: [address], [place] [address] , Ph. [phone] [facility] 0925 [facility] 2019-07-19 00:00:00 2019-07-19 00:00:00 Tory Rodrigues MD: [address], [place] [address] , Ph. [phone] MMG [facility] OBGY 0911 [facility] 2019-07-06 09:19:00 2019-07-06 09:19:00 Outpatient TORY MARLEY [facility] [id number] [facility] 2019-07-05 00:00:00 2019-07-05 00:00:00 Tory Rodrigues MD: [address], [place] [address] , Ph. [phone] [facility] 28 [facility] 2019-06-05 00:00:00 2019-06-05 00:00:00 Tory Rodrigues MD: [address], [place] [address] , Ph. [phone] MMG [facility] OBGYN 728 [facility] 2019-05-08 00:00:00 2019-05-08 00:00:00 Tory Rodrigues MD: [address], [place] [address] , Ph. [phone] [facility] 700 [facility] 2019-04-17 13:48:00 2019-04-17 19:06:00 Emergency ER MIKE LYONS [facility] [id number] [facility] 2019-04-10 12:12:00 2019-04-10 12:12:00 Outpatient EL TORY RODRIGUES [facility] [id number] [facility] 2019-04-10 00:00:00 2019-04-10 00:00:00 Tory Rodrigues MD: [address], [place] [address] , Ph. [phone] MM[facility] OBGY 602 [facility] 2019-04-04 00:00:00 2019-04-04 00:00:00 Bernardo Robles MD: [address], [place] [address] , Ph. [phone] MM[facility] General surgery 28 [facility] 2019-03-14 12:48:00 2019-03-16 12:45:00 Inpatient ER TORY RODRIGUES [facility] [id number] [facility] 2019-03-14 00:00:00 2019-03-14 00:00:00 Tory Rodrigues MD: [address], [place] [address] , Ph. [phone] [facility] [id number] 0507 [facility] 2019-02-27 20:24:00 2019-02-28 07:32:00 Emergency ER OWEN RINCON [facility] [id number] [facility] 2019-02-14 16:28:00 2019-02-16 13:00:00 Inpatient TORY MARLEY [facility] [id number] [facility] 2019-02-14 00:00:00 2019-02-14 00:00:00 Tory Rodrigues MD: [address], [place] [address] , Ph. [phone] MMG [facility] [id number] 0409 [facility] 2019-02-07 00:00:00 2019-02-07 00:00:00 Tory Rodrigues MD: [address], [place] [address] , Ph. [phone] [facility] [address] 0402 [facility] 2019-01-26 09:24:00 2019-01-26 09:24:00 Outpatient TORY MARLEY [facility] [id number] [facility] 2019-01-26 00:00:00 2019-01-26 00:00:00 Tory Rodrigues MD: [address], [place] [address] , Ph. [phone] [facility] [id number] 0321 [facility] 2019-01-24 15:52:00 2019-01-24 15:52:00 Outpatient TORY MARLEY [facility] [id number] [facility] 2019-01-03 11:55:00 2019-01-03 11:55:00 Outpatient TORY MARLEY [facility] [id number] [facility] 2019-01-03 00:00:00 2019-01-03 00:00:00 Tory Rodrigues MD: [address] [facility], [address], [place] [address] , Ph. [phone] [facility] [id number] 0226 [facility] 2018-11-25 20:29:00 2018-11-25 20:29:00 Emergency ER FABIO TOBAR [facility] [id number] [facility] 2018-01-20 16:27:00 2018-01-20 20:45:00 Emergency ER GRAZYNA PEDRAZA [facility] [id number] [facility] 2017-11-14 14:05:00 2017-11-14 16:35:00 Emergency ER MARY HOLLY [facility] [id number] [facility] 2016-11-09 21:51:00 2016-11-09 23:24:00 Emergency ER RAMIRO MAY [facility] [id number] [facility] 2016-06-26 10:24:00 2016-06-26 10:24:00 Outpatient TORY MARLEY [facility] [id number] [facility] 2015-11-14 15:25:00 2015-11-14 15:25:00 Outpatient KATELYNN PATEL [facility] [id number] [facility] 2015-11-09 16:47:00 2015-11-09 17:19:00 Emergency ER GRAZYNA PEDRAZA [facility] [id number] [facility] 2015-10-16 14:20:00 2015-10-16 15:56:00 Emergency ER UGMAEGAN, CLEMENT [facility] [id number] [facility] 2015-05-12 12:25:00 2015-05-12 14:27:00 Emergency ER YUNG MEDEIROS [facility] [id number] [facility] 2014-12-23 15:21:00 2014-12-23 20:00:00 Emergency ER Rene Goins [facility] [id number] [facility] 2014-09-11 10:40:00 2014-09-11 10:40:00 Outpatient TORY MARLEY [facility] [id number] [facility] 2014-09-09 14:01:00 2014-09-09 18:52:00 Emergency ER VANNESSA MARKCALLY [facility] [id number] [facility] 2014-09-03 08:02:00 2014-09-03 10:15:00 Emergency ER NADINE PINTO [facility] [id number] [facility] 2014-08-06 13:02:00 2014-08-06 13:49:00 Emergency ER UGORELSIE, [facility] [id number] [facility] 2013-03-30 12:05:00 2013-03-30 13:50:00 Emergency ER UGPRABHUELSIE, CLEMENT [facility] [id number] [facility] 2013-02-01 08:56:00 2013-02-01 09:28:00 Emergency ER SERGEY OWEN [facility] [id number] [facility] 2012-09-06 20:15:00 2012-09-06 22:25:00 Emergency ER LALO, [facility] [id number] [facility] 2012-05-18 22:48:00 2012-05-19 00:24:00 Emergency ER YUNG MEDEIROS [facility] [id number] [facility] 2011-12-23 07:58:00 2011-12-23 10:25:00 Emergency ER OWEN RINCON [facility] [id number] [facility] 2011-11-11 15:39:00 2011-11-13 10:42:00 Inpatient TORY MARLEY [facility] [id number] [facility] Results Test Description Test Time Test Comments Results Result Co mments [facility]dipstick) panel - [id number] 10:44:10* Test Item Value Reference Range Interpretation Comme nts Leukocytes (test code = Leukocytes) Negative Nitrite (test code = Nitrite) negative Urobilinogen (test code = Urobilinogen) 1 Protein (test code = Protein) Negative pH (test code = pH) 6.0 Blood (test code = Blood) Negative Specific [place] (test code = Specific [place]) 1.025 Ketone (test code = Ketone) Negative Bilirubin (test code = Bilirubin) Negative Glucose (test code = Glucose) Negative Appearance (test code = Appearance) Clear Color (test code = Color) Yellow [facility], [id number] 10:16:15* Test Item Value Reference Range Interpretation Comme nts Test (test code = Test) negative [facility] [id number] 10:25:00* Test Item Value Reference Range Interpretation Comme nts HCG quantitative (test code = HCG quantitative) < 0.1 0-5 [facility] macro (dipstick) panel - [id number] 08:30:30* Test Item Value Reference Range Interpretation Comme nts Leukocytes (test code = Leukocytes) Negative Nitrite (test code = Nitrite) negative Urobilinogen (test code = Urobilinogen) 1 Protein (test code = Protein) Negative pH (test code = pH) 6.0 Blood (test code = Blood) Negative Specific [place] (test code = Specific [place]) 1.030 Ketone (test code = Ketone) Negative Bilirubin (test code = Bilirubin) Negative Glucose (test code = Glucose) Negative Appearance (test code = Appearance) Clear Color (test code = Color) Yellow [facility], [id number] 08:25:46* Test Item Value Reference Range Interpretation Comme nts Test (test code = Test) negative [facility] - cancer [facility] assessment [id number] 07:34:00 * Test Item Value Reference Range Interpretation Comme nts mg - cancer history assessment result (test code = mgh - cancer history assessment result) meets criteria A [facility], [id number] 16:10:50* Test Item Value Reference Range Interpretation Comme nts Test (test code = Test) negative [facility] GroupMicroscopic observation [Identifier] in Vaginal fluid by Wet [id number] 10:17:41* Test Item Value Reference Range Interpretation Comme nts Clue Cells (test code = Clue Cells) negative WBCs (test code = WBCs) negative Trichomonads (test code = Trichomonads) negative Epithelial cells (test code = Epithelial cells) normal RBCs (test code = RBCs) positive [facility], [id number] 18:02:09* Test Item Value Reference Range Interpretation Comme nts Test (test code = Test) negative [facility], [id number] 11:50:35* Test Item Value Reference Range Interpretation Comme nts Test (test code = Test) negative [facility], [id number] 15:40:27* Test Item Value Reference Range Interpretation Comme nts Test (test code = Test) negative [facility], [id number] 14:38:52* Test Item Value Reference Range Interpretation Comme nts Test (test code = Test) negative [facility] bllam9841-20-08 14:38:52* Test Item Value Reference Range Interpretation Comme nts Test (test code = Test) negative [facility], [id number] 14:38:52* Test Item Value Reference Range Interpretation Comme nts Test (test code = Test) [facility], DNA, urine/[id number] 00:00:00* Test Item Value Reference Range Interpretation [...] to antibiotic resistance by molecular analysis)) [facility], DNA, urine/[id number] 00:00:00* Test Item Value Reference Range Interpretation [...] to antibiotic resistance by molecular analysis)) [facility] + TV, DNA, urine/[id number] 00:00:00* Test Item Value Reference Range Interpretation [...] to antibiotic resistance by molecular analysis)) negative [facility], LB + [id number] 00:00:00* Test Item Value Reference Range Interpretation Comme nts HPV type-detect 4.0 by real time PCR high risk subtypes only (test code = HPV type-detect 4.0 by real time PCR high risk subtypes only) not detected liquid Pap test (test code = liquid Pap test) normal [facility], LB + [id number] 00:00:00* Test Item Value Reference Range Interpretation Comme nts HPV type-detect 4.0 by real time PCR high risk subtypes only (test code = HPV type-detect 4.0 by real time PCR high risk subtypes only) not detected liquid Pap test (test code = liquid Pap test) normal [facility], LB + [id number] 00:00:00* Test Item Value Reference Range Interpretation Comme nts HPV type-detect 4.0 by real time PCR high risk subtypes only (test code = HPV type-detect 4.0 by real time PCR high risk subtypes only) not detected liquid Pap test (test code = liquid Pap test) normal [facility] W Auto Differential panel - [id number] 12:15:00 * Test Item Value Reference Range Interpretation Comme nts white blood count (test code = white blood count) 5.0 K/uL 4.0-11.5 red blood count (test code = red blood count) 4.15 M/uL 3.80-5.20 hemoglobin (test code = hemoglobin) 12.9 g/dL 10.5-15.7 hematocrit (test code = hematocrit) 40.9 % 34.0-50.0 MCV [Entitic volume] (test c ode = 38438-0) 98.6 fL 86-100 mean corpuscular hemoglobin (test [...] neutrophils/100 leukocytes in Blood (test code = 66144-6) 46.5 % 44.4-80.1 Immature granulocytes [#/vol ume] in Blood (test code = 32854-8) 0.0 K/uL 0.0-0.03 lymphocyte% (test code = lymphocyte%) 44.6 % 10.0-50.0 mono % (test code = mono %) 6.3 % 3.6-12.0 eos % (test code = eos %) 1.6 % 0.0-5.4 Basophils/100 leukocytes in Unspecified specimen (test code = 96704-0) 1.0 % 0.1-1.2 Band form neutrophils [#/vol ume] in Blood (test code = 45860-3) 2.34 K/uL 1.56-6.13 Lymphocytes [#/volume] in Unspecified specimen by Automated count (test code = 13243-6) 2.3 K/uL 1.18-3.74 mono # (test code = mono #) 0.32 K/uL 0.24-0.86 eos # (test code = eos #) 0.08 K/uL 0.04-0.36 basophil # (test code = baso damir #) 0.05 K/uL 0.01-0.08 NRBC% (test code = NRBC%) 0 /100 WBC 0-0.2 NRBC# (test code = NRBC#) 0 K/uL [facility] - Serum or Plasma [...] (test code = 6768-6) 66 U/L 35-105 [facility] W Auto Differential panel - [id number] 12:15:00 * Test Item Value Reference Range Interpretation Comme nts white blood count (test code = white blood count) 5.0 K/uL 4.0-11.5 red blood count (test code = red blood count) 4.15 M/uL 3.80-5.20 hemoglobin (test code = hemoglobin) 12.9 g/dL 10.5-15.7 hematocrit (test code = hematocrit) 40.9 % 34.0-50.0 MCV [Entitic volume] (test c ode = 19760-4) 98.6 fL 86-100 mean corpuscular hemoglobin (test [...] neutrophils/100 leukocytes in Blood (test code = 06773-1) 46.5 % 44.4-80.1 Immature granulocytes [#/vol ume] in Blood (test code = 89940-8) 0.0 K/uL 0.0-0.03 lymphocyte% (test code = lymphocyte%) 44.6 % 10.0-50.0 mono % (test code = mono %) 6.3 % 3.6-12.0 eos % (test code = eos %) 1.6 % 0.0-5.4 Basophils/100 leukocytes in Unspecified specimen (test code = 25208-1) 1.0 % 0.1-1.2 Band form neutrophils [#/vol ume] in Blood (test code = 18055-0) 2.34 K/uL 1.56-6.13 Lymphocytes [#/volume] in Unspecified specimen by Automated count (test code = 54429-5) 2.3 K/uL 1.18-3.74 mono # (test code = mono #) 0.32 K/uL 0.24-0.86 eos # (test code = eos #) 0.08 K/uL 0.04-0.36 basophil # (test code = baso damir #) 0.05 K/uL 0.01-0.08 NRBC% (test code = NRBC%) 0 /100 WBC 0-0.2 NRBC# (test code = NRBC#) 0 K/uL [facility] - Serum or Plasma [...] (test code = 6768-6) 66 U/L 35-105 [facility] W Auto Differential panel - [id number] 12:15:00 * Test Item Value Reference Range Interpretation Comme nts white blood count (test code = white blood count) 5.0 K/uL 4.0-11.5 red blood count (test code = red blood count) 4.15 M/uL 3.80-5.20 hemoglobin (test code = hemoglobin) 12.9 g/dL 10.5-15.7 hematocrit (test code = hematocrit) 40.9 % 34.0-50.0 MCV [Entitic volume] (test c ode = 98835-1) 98.6 fL 86-100 mean corpuscular hemoglobin (test [...] neutrophils/100 leukocytes in Blood (test code = 04755-4) 46.5 % 44.4-80.1 Immature granulocytes [#/vol ume] in Blood (test code = 46598-3) 0.0 K/uL 0.0-0.03 lymphocyte% (test code = lymphocyte%) 44.6 % 10.0-50.0 mono % (test code = mono %) 6.3 % 3.6-12.0 eos % (test code = eos %) 1.6 % 0.0-5.4 Basophils/100 leukocytes in Unspecified specimen (test code = 30482-5) 1.0 % 0.1-1.2 Band form neutrophils [#/vol ume] in Blood (test code = 95007-3) 2.34 K/uL 1.56-6.13 Lymphocytes [#/volume] in Unspecified specimen by Automated count (test code = 99740-4) 2.3 K/uL 1.18-3.74 mono # (test code = mono #) 0.32 K/uL 0.24-0.86 eos # (test code = eos #) 0.08 K/uL 0.04-0.36 basophil # (test code = baso damir #) 0.05 K/uL 0.01-0.08 NRBC% (test code = NRBC%) 0 /100 WBC 0-0.2 NRBC# (test code = NRBC#) 0 K/uL [facility] 2000 [facility] - Serum or Plasma [...] (test code = 6768-6) 66 U/L 35-105 [facility]iReagin Ab [Presence] in Serum by [id number] 00:00:00* Test Item Value Reference Range Interpretation Comme nts Reagin Ab [Presence] in Seru m by RPR (test code = 71058-1) nonreactive nonreactive [facility]ial panel, method unspecified - [id number] 00:00:00NeutrophilsBandLymphocyteAtypical LymphMonocyteEosinophilBasophilMetamyelocyteMyelocytePromyelocyteBlastsNucleated Red Blood CellAbs Neutrophil Count (Man)Abs Lymph Count (Man)Abs Monocyte Count (Man)Abs Eosinophil Count (Man)Abs Basophil Count (Man)Platelet EstimatePlatelet MorphologyPolychromasiaMacrocytosisHypersegmented Polys [facility] GroupThyrotropin [Units/volume] in Serum or [id number] 00:00:00* Test Item Value Reference Range Interpretation Comme nts Thyrotropin [Units/volume] i n Serum or Plasma (test code = 3016-3) 0.95 uIU/mL 0.36-3.74 [facility]iThyroxine (T4) free [Mass/volume] in Serum or Plasma 2021-08-19 00:00:00* Test Item Value Reference Range Interpretation Comme nts free T4 (test code = free T4) 0.96 NG/dL 0.93-1.7 [facility] GroupHIV 1+2 Ab [Presence] in [id number] 00:00:00HIV P24 AgHIV-1/2 [facility] HospitalHepatitis B virus surface Ag [Presence] in [id number] 00:00:00* Test Item Value Reference Range Interpretation Comme nts .hepatitis B surface antigen (test code = .hepatitis B surface antigen) negative negative [facility]iReagin Ab [Presence] in Serum by [id number] 00:00:00* Test Item Value Reference Range Interpretation Comme nts Reagin Ab [Presence] in Seru m by RPR (test code = 23066-8) nonreactive nonreactive [facility] GroupDifferential panel, method unspecified - [id number] 00:00:00NeutrophilsBandLymphocyteAtypical LymphMonocyteEosinophilBasophilMetamyelocyteMyelocytePromyelocyteBlastsNucleated Red Blood CellAbs Neutrophil Count (Man)Abs Lymph Count (Man)Abs Monocyte Count (Man)Abs Eosinophil Count (Man)Abs Basophil Count (Man)Platelet EstimatePlatelet MorphologyPolychromasiaMacrocytosisHypersegmented Polys [facility] GroupThyrotropin [Units/volume] in Serum or Nolfpz8186-27-15 00:00:00* Test Item Value Reference Range Interpretation Comme nts Thyrotropin [Units/volume] i n Serum or Plasma (test code = 3016-3) 0.95 uIU/mL 0.36-3.74 [facility] GroupThyroxine (T4) free [Mass/volume] in Serum or Plasma 2021-08-19 00:00:00* Test Item Value Reference Range Interpretation Comme nts free T4 (test code = free T4) 0.96 NG/dL 0.93-1.7 [facility] GroupHIV 1+2 Ab [Presence] in [id number] 00:00:00HIV P24 AgHIV-1/2 [facility] HospitalHepatitis B virus surface Ag [Presence] in [id number] 00:00:00* Test Item Value Reference Range Interpretation Comme nts .hepatitis B surface antigen (test code = .hepatitis B surface antigen) negative negative [facility] GroupReagin Ab [Presence] in Serum by [id number] 00:00:00* Test Item Value Reference Range Interpretation Comme nts Reagin Ab [Presence] in Seru m by RPR (test code = 80421-9) nonreactive nonreactive [facility] GroupDifferential panel, method unspecified - [id number] 00:00:00NeutrophilsBandLymphocyteAtypical LymphMonocyteEosinophilBasophilMetamyelocyteMyelocytePromyelocyteBlastsNucleated Red Blood CellAbs Neutrophil Count (Man)Abs Lymph Count (Man)Abs Monocyte Count (Man)Abs Eosinophil Count (Man)Abs Basophil Count (Man)Platelet EstimatePlatelet MorphologyPolychromasiaMacrocytosisHypersegmented Polys [facility] GroupThyrotropin [Units/volume] in Serum or [id number] 00:00:00* Test Item Value Reference Range Interpretation Comme nts Thyrotropin [Units/volume] i n Serum or Plasma (test code = 3016-3) 0.95 uIU/mL 0.36-3.74 [facility]iThyroxine (T4) free [Mass/volume] in Serum or Plasma 2021-08-19 00:00:00* Test Item Value Reference Range Interpretation Comme nts free T4 (test code = free T4) 0.96 NG/dL 0.93-1.7 [facility]iHIV 1+2 Ab [Presence] in [id number] 00:00:00HIV P24 AgHIV-1/2 AbMataT[facility] HospitalHepatitis B virus surface Ag [Presence] in [id number] 00:00:00* Test Item Value Reference Range Interpretation Comme nts .hepatitis B surface antigen (test code = .hepatitis B surface antigen) negative negative [facility]oxiUrinalysis macro (dipstick) panel - [id number] 16:06:55* Test Item Value Reference Range Interpretation Comme nts Leukocytes (test code = Leukocytes) Negative Nitrite (test code = Nitrite) negative Urobilinogen (test code = Urobilinogen) .2 Protein (test code = Protein) Negative pH (test code = pH) 7.0 Blood (test code = Blood) Non-Hemolyzed: Trace Specific [place] (test code = Specific [place]) 1.020 Ketone (test code = Ketone) Negative Bilirubin (test code = Bilirubin) Negative Glucose (test code = Glucose) Negative Appearance (test code = Appearance) Clear Color (test code = Color) Yellow [facility]ip[facility] test, [id number] 16:22:27* Test Item Value Reference Range Interpretation Comme nts Test (test code = Test) negative [facility] test, [id number] 16:22:27* Test Item Value Reference Range Interpretation Comme nts Test (test code = Test) negative [facility]oxiUrinalysis macro (dipstick) panel - [id number] 16:22:10* Test Item Value Reference Range Interpretation Comme nts Leukocytes (test code = Leukocytes) Negative Nitrite (test code = Nitrite) negative Urobilinogen (test code = Urobilinogen) .2 Protein (test code = Protein) Negative pH (test code = pH) 7.0 Blood (test code = Blood) Negative Specific [place] (test code = Specific [place]) 1.025 Ketone (test code = Ketone) Negative Bilirubin (test code = Bilirubin) Negative Glucose (test code = Glucose) Negative Appearance (test code = Appearance) Clear Color (test code = Color) Yellow [facility]iUrinalysis macro (dipstick) panel - [id number] 16:22:10* Test Item Value Reference Range Interpretation Comme nts Leukocytes (test code = Leukocytes) Negative Nitrite (test code = Nitrite) negative Urobilinogen (test code = Urobilinogen) .2 Protein (test code = Protein) Negative pH (test code = pH) 7.0 Blood (test code = Blood) Negative Specific [place] (test code = Specific [place]) 1.025 Ketone (test code = Ketone) Negative Bilirubin (test code = Bilirubin) Negative Glucose (test code = Glucose) Negative Appearance (test code = Appearance) Clear Color (test code = Color) Yellow [facility]iReagin Ab [Presence] in Serum by [id number] 06:56:00* Test Item Value Reference Range Interpretation Comme nts Reagin Ab [Presence] in Seru m by RPR (test code = 22822-4) nonreactive nonreactive [facility]iHIV 1+2 Ab [Presence] in [id number] 06:56:00HIV P24 AgHIV-1/2 AbMataT[facility] HospitalHepatitis B virus surface Ag [Presence] in [id number] 06:56:00* Test Item Value Reference Range Interpretation Comme nts .hepatitis B surface antigen (test code = .hepatitis B surface antigen) negative negative [facility]iHepatitis C virus RNA [Units/volume] (viral load) in Serum or Plasma by Probe with signal wojxkruholzot0136-23-52 06:56:00* Test Item Value Reference Range Interpretation Comme nts hepatitis C RNA CHICO,qual (te st code = hepatitis C RNA CHICO,qual) negative negative [facility] test, [id number] 11:12:00* Test Item Value Reference Range Interpretation Comme nts Test (test code = Test) negative [facility]oxiPLACENTA THIRD [id number] 17:41:00 RUN DATE: 08/31/19 [facility] PAGE 1 RUN TIME: 914 Specimen Inquiry RUN USER: INTERFACE --------- ---PATIENT: ANJELICA NAVARRO LOC: MarcelinoABIMBOLA U #: [id number] AGE/SX: ROOM: [age] RE08/02/19REG DR: Isaiah Chase MD : 89 BED: A DIS: 08/30/19 STATUS: DIS IN TLOC: SPEC #: [id number] RECD: 08/26/19 STATUS: SANDY DOBBINS #: [id number] ILENE: 08/26/19- SUBM DR: Isaiah Chase MD ENTERED: 08/28/19 SP TYPE: PLACIII AMMY DR: ORDERED: LEVEL V SURGICA CODES: [id number] - PLACENTA, NOS PROCEDURES: LEVEL V SURGICA (Incomplete) TISSUES: PLACENTA, NOS - PLACENTA CLINICAL HISTORY 28 year old, 35.5 weeks,[id number], section, abnormal cord doppler, severe IUGR, prematurity, non-reassuring fetalmonitoring, increased SD ratios (kr) FINAL DIAGNOSIS Placenta, 35.5 weeks gestational age, Cesareansection: - third trimester placenta, 300 gms (10th percentile) - meconium macrophages within membranes - patchy villous edema - marginally inserted trivascular umbilical cord and membranes free of inflammation CPT code(s): 96309 [facility] 08/30/19 GROSS DESCRIPTION The specimen was [...] Specimen Inquiry RUN USER: INTERFACE SPEC #: [id number] PATIENT: ANJELICA NAVARRO #[id number] (Continued) GROSS DESCRIPTION (Continued) Accessorylobes: None Maternal surface: Lobulated and intact Parenchyma: [...] code = PLTMR) NORMAL NORMAL CBC W/AUTO [id number] 05:33:00* Test Item Value Reference Range Interpretation [...] code = PLTMR) NORMAL NORMAL CBC W/AUTO [id number] 05:29:00* Test Item Value Reference Range Interpretation [...] (test code = PLTMR) NORMAL NORMAL URINALYSIS [id number] 22:37:00* Test Item Value Reference Range Interpretation [...] NEG UA NITRITE DIPSTICK (test code = SAVAGE) NEG NEG UA LEUKOCYTE ESTERASE DIPSTICK (test code = LEUU) NEG NEG UA WBC (test code = WBCU) 0-2 #/hpf NONE SEEN UA RBC (test code = RBCU) NONE SEEN #/hpf NONE SEEN UA EPITHELIAL CELLS (test code = EPIU) RARE #/HPF RARE-FEW UA BACTERIA (test code = BACU) RARE /HPF RARE-FEW UA MUCUS (test code = MUCU) RARE NONE SEEN CBC W/AUTO [id number] 18:07:00* Test Item Value Reference Range Interpretation [...] = PLTMR) NORMAL NORMAL AG HEPATITIS B [id number] 00:46:00* Test Item Value Reference Range Interpretation Comme nts AG HEPATITIS B SURFACE (test code = HBSAG) NONREACTIVE NONREACTIVE IS CONSENT FORM SIGNED FOR HIV TESTING? YAB HEPATITIS C [id number] 00:46:00* Test Item Value Reference Range Interpretation Comme nts AB HEPATITIS C (test code = HCVAB) NONREACTIVE NONREACTIVE SIGNAL TO CUTOFF (test code = CUTOFF) 0.12 <0.80 N IS CONSENT FORM SIGNED FOR HIV TESTING? YRUBELLA [id number] 00:46:00* Test Item Value Reference Range Interpretation Comme nts RUBELLA SCREEN (test code = RUBSC) 78.5 IUnit/ml Results >10.0IUn its/ml are considered positive inaccordance with the CLSI guidelines and based on the WHO International Standard for Anti-Rubella serum as anindicator of immune status and a breakpoint to detect mostseropositive persons. IS CONSENT FORM SIGNED FOR HIV TESTING? GRETCHENB [id number] 00:46:00* Test Item Value Reference Range Interpretation Comme nts AB TREPONEMA (test code = TREPAB) NONREACTIVE NONREACTIVE IS CONSENT FORM SIGNED FOR HIV TESTING? GRETCHENB HIV 1 00:46:00* Test Item Value Reference Range Interpretation Comme nts AB HIV 1 2 (test code = HCA21UN) NONREACTIVE NONREACTIVE Done by [employer] HIV Ag/Ab Combo Screen IS CONSENT FORM SIGNED FOR HIV TESTING? YAG HEPATITIS B [id number] 00:10:00* Test Item Value Reference Range Interpretation Comme nts AG HEPATITIS B SURFACE (test code = HBSAG) NONREACTIVE NONREACTIVE IS CONSENT FORM SIGNED FOR HIV TESTING? YAB HEPATITIS C [id number] 00:10:00* Test Item Value Reference Range Interpretation Comme nts AB HEPATITIS C (test code = HCVAB) NONREACTIVE SIGNAL TO CUTOFF (test code = CUTOFF) <0.80 IS CONSENT FORM SIGNED FOR HIV TESTING? YRUBELLA [id number] 00:10:00* Test Item Value Reference Range Interpretation Comme nts RUBELLA SCREEN (test code = RUBSC) 78.5 IUnit/ml Results >10.0IUn its/ml are considered positive inaccordance with the CLSI guidelines and based on the WHO International Standard for Anti-Rubella serum as anindicator of immune status and a breakpoint to detect mostseropositive persons. IS CONSENT FORM SIGNED FOR HIV TESTING? YAB [id number] 00:10:00* Test Item Value Reference Range Interpretation Comme nts AB TREPONEMA (test code = TREPAB) NONREACTIVE NONREACTIVE IS CONSENT FORM SIGNED FOR HIV TESTING? YAB HIV 1 00:10:00* Test Item Value Reference Range Interpretation Comme nts AB HIV 1 2 (test code = RPQ39UQ) NONREACTIVE IS CONSENT FORM SIGNED FOR HIV TESTING? YCBC W/AUTO [id number] 23:05:00* Test Item Value Reference Range Interpretation [...] = PLTMR) NORMAL NORMAL Biophysical profile panel [id number] 09:13:00* Test Item Value Reference Range Interpretation Comme nts Amniotic Fluid Index (test c ode = Amniotic Fluid Index) 2 Tone (test code = Tone) 2 Breathing (test code = Breathing) 2 Movement (test code = Movement) 2 [facility] Biophysical profile panel [id number] 09:13:00* Test Item Value Reference Range Interpretation Comme nts Amniotic Fluid Index (test c ode = Amniotic Fluid Index) 2 Tone (test code = Tone) 2 Breathing (test code = Breathing) 2 Movement (test code = Movement) 2 [facility] Biophysical profile panel [id number] 09:13:00* Test Item Value Reference Range Interpretation Comme nts Amniotic Fluid Index (test c ode = Amniotic Fluid Index) 2 Tone (test code = Tone) 2 Breathing (test code = Breathing) 2 Movement (test code = Movement) 2 [facility]inalysis macro (dipstick) panel - [id number] 09:21:00* Test Item Value Reference Range Interpretation Comme nts Leukocytes (test code = Leukocytes) Trace Nitrite (test code = Nitrite) negative Urobilinogen (test code = Urobilinogen) .2 Protein (test code = Protein) Negative pH (test code = pH) 7.0 Blood (test code = Blood) Negative Specific [place] (test code = Specific [place]) 1.020 Ketone (test code = Ketone) Negative Bilirubin (test code = Bilirubin) Negative Glucose (test code = Glucose) Negative Appearance (test code = Appearance) Clear Color (test code = Color) Dark Yellow [facility]iUrinalysis macro (dipstick) panel - [id number] 11:07:00* Test Item Value Reference Range Interpretation Comme nts Leukocytes (test code = Leukocytes) Negative Nitrite (test code = Nitrite) negative Urobilinogen (test code = Urobilinogen) 1 Protein (test code = Protein) Negative pH (test code = pH) 7.0 Blood (test code = Blood) Negative Specific [place] (test code = Specific [place]) 1.020 Ketone (test code = Ketone) Negative Bilirubin (test code = Bilirubin) Negative Glucose (test code = Glucose) Negative Appearance (test code = Appearance) Clear Color (test code = Color) Yellow [facility] GroupCandida sp DNA [Presence] in Vaginal fluid by Probe and target amplification [id number] 00:00:00* Test Item Value Reference Range Interpretation [...] luis m glabrata by real-time PCR) negative [facility] GroupCandida sp DNA [Presence] in Vaginal fluid by Probe and target amplification [id number] 00:00:00* Test Item Value Reference Range Interpretation [...] luis m glabrata by real-time PCR) negative [facility] GroupCandida sp DNA [Presence] in Vaginal fluid by Probe and target amplification [id number] 00:00:00* Test Item Value Reference Range Interpretation [...] luis m glabrata by real-time PCR) negative [facility] GroupColony count [#/volume] in [id number] 00:00:00* Test Item Value Reference Range Interpretation [...] = pseudomonas aeruginosa by real-time PCR) negative [facility] Groupbacterial vaginosis panel, [id number] 00:00:00* Test Item Value Reference Range Interpretation [...] panel) by real time PCR) see comment [facility] GroupColony count [#/volume] in [id number] 00:00:00* Test Item Value Reference Range Interpretation [...] = pseudomonas aeruginosa by real-time PCR) negative [facility]ib[facility] vaginosis panel, [id number] 00:00:00* Test Item Value Reference Range Interpretation [...] panel) by real time PCR) see comment [facility] GroupColony count [#/volume] in [id number] 00:00:00* Test Item Value Reference Range Interpretation [...] = pseudomonas aeruginosa by real-time PCR) negative [facility] vaginosis panel, [id number] 00:00:00* Test Item Value Reference Range Interpretation [...] panel) by real time PCR) see comment [facility] [id number] 09:45:00Results [facility] [id number] 09:45:00Results [facility] [id number] 09:45:00Results [facility]iCBC W Auto Differential panel - [id number] 04:12:00 * Test Item Value Reference Range Interpretation Comme nts white blood count (test code = white blood count) 7.2 K/uL 4.0-11.5 red blood count (test code = red blood count) 3.69 M/uL 3.80-5.20 L Hemoglobin [Mass/volume] in Blood (test code = 718-7) 11.5 g/dL 10.5-15.7 hematocrit (test code = hematocrit) 35.0 % 34.0-50.0 Erythrocyte mean corpuscular volume [Entitic volume] (test code = 18643-7) 94.8 fL 78-98 Erythrocyte mean corpuscular hemoglobin [Entitic mass] (test code = 18521-2) 31.3 pg 26.2-33.4 mean corpuscular HGB conc (t est code = mean corpuscular HGB conc) 33.0 g/dL 31.5-36.2 red cell distribution width (test code = red cell distribution width) 11.3 % 11.5-15.5 L Platelets [#/volume] in Bloo d (test code = 63780-8) 221 K/uL 137-338 Platelet mean volume [Entiti c volume] in Blood (test code = 15240-9) 8.5 fL 8.4-11.8 Neutrophils.band form/100 leukocytes in Blood (test code = 39813-2) 95.1 % 44.4-80.1 Lymphocytes/100 leukocytes i n Body fluid (test code = 79681-4) 4.0 % 10.0-50.0 L Monocytes/100 leukocytes in Blood by Automated count (test code = 5905-5) 0.6 % 3.6-12.04 L Eosinophils/100 leukocytes i n Blood by Automated count (test code = 713-8) 0.1 % 0.0-5.41 Basophils/100 leukocytes in Unspecified specimen (test code = 72782-7) 0.2 % 0.0-0.79 [facility] Biloxidifferential panel, [id number] 04:12:00 NeutrophilsBandLymphocyteAtypical LymphMonocyteEosinophilBasophilPlatelet EstimatePlatelet MorphologyTarget CellsToxic GranulationToxic Vacuolation [facility] Differential panel - [id number] 04:12:00 * Test Item Value Reference Range Interpretation Comme nts white blood count (test code = white blood count) 7.2 K/uL 4.0-11.5 red blood count (test code = red blood count) 3.69 M/uL 3.80-5.20 L Hemoglobin [Mass/volume] in Blood (test code = 718-7) 11.5 g/dL 10.5-15.7 hematocrit (test code = hematocrit) 35.0 % 34.0-50.0 Erythrocyte mean corpuscular volume [Entitic volume] (test code = 71786-4) 94.8 fL 78-98 Erythrocyte mean corpuscular hemoglobin [Entitic mass] (test code = 04579-3) 31.3 pg 26.2-33.4 mean corpuscular HGB conc (t est code = mean corpuscular HGB conc) 33.0 g/dL 31.5-36.2 red cell distribution width (test code = red cell distribution width) 11.3 % 11.5-15.5 L Platelets [#/volume] in Bloo d (test code = 51528-7) 221 K/uL 137-338 Platelet mean volume [Entiti c volume] in Blood (test code = 14257-3) 8.5 fL 8.4-11.8 Neutrophils.band form/100 leukocytes in Blood (test code = 48898-5) 95.1 % 44.4-80.1 Lymphocytes/100 leukocytes i n Body fluid (test code = 82772-8) 4.0 % 10.0-50.0 L Monocytes/100 leukocytes in Blood by Automated count (test code = 5905-5) 0.6 % 3.6-12.04 L Eosinophils/100 leukocytes i n Blood by Automated count (test code = 713-8) 0.1 % 0.0-5.41 Basophils/100 leukocytes in Unspecified specimen (test code = 45967-6) 0.2 % 0.0-0.79 [facility] Biloxidifferential panel, [id number] 04:12:00 NeutrophilsBandLymphocyteAtypical LymphMonocyteEosinophilBasophilPlatelet EstimatePlatelet MorphologyTarget CellsToxic GranulationToxic Vacuolation [facility] Differential panel - [id number] 04:12:00 * Test Item Value Reference Range Interpretation Comme nts white blood count (test code = white blood count) 7.2 K/uL 4.0-11.5 red blood count (test code = red blood count) 3.69 M/uL 3.80-5.20 L Hemoglobin [Mass/volume] in Blood (test code = 718-7) 11.5 g/dL 10.5-15.7 hematocrit (test code = hematocrit) 35.0 % 34.0-50.0 Erythrocyte mean corpuscular volume [Entitic volume] (test code = 92674-8) 94.8 fL 78-98 Erythrocyte mean corpuscular hemoglobin [Entitic mass] (test code = 13808-1) 31.3 pg 26.2-33.4 mean corpuscular HGB conc (t est code = mean corpuscular HGB conc) 33.0 g/dL 31.5-36.2 red cell distribution width (test code = red cell distribution width) 11.3 % 11.5-15.5 L Platelets [#/volume] in Bloo d (test code = 11567-3) 221 K/uL 137-338 Platelet mean volume [Entiti c volume] in Blood (test code = 19459-3) 8.5 fL 8.4-11.8 Neutrophils.band form/100 leukocytes in Blood (test code = 04287-1) 95.1 % 44.4-80.1 Lymphocytes/100 leukocytes i n Body fluid (test code = 66306-7) 4.0 % 10.0-50.0 L Monocytes/100 leukocytes in Blood by Automated count (test code = 5905-5) 0.6 % 3.6-12.04 L Eosinophils/100 leukocytes i n Blood by Automated count (test code = 713-8) 0.1 % 0.0-5.41 Basophils/100 leukocytes in Unspecified specimen (test code = 23287-1) 0.2 % 0.0-0.79 [facility] Biloxidifferential panel, [id number] 04:12:00 NeutrophilsBandLymphocyteAtypical LymphMonocyteEosinophilBasophilPlatelet EstimatePlatelet MorphologyTarget CellsToxic GranulationToxic Vacuolation [facility] Differential panel - [id number] 03:30:00 * Test Item Value Reference Range [...] corpuscular volume [Entitic volume] (test code = 28638-9) 95.8 fL 78-98 Erythrocyte mean corpuscular hemoglobin [Entitic mass] (test code = 08766-7) 31.2 pg 26.2-33.4 mean corpuscular HGB conc (t est code = mean corpuscular HGB conc) 32.6 g/dL 31.5-36.2 red cell distribution width (test code = red cell distribution width) 11.2 % 11.5-15.5 L Platelets [#/volume] in Bloo d (test code = 65252-2) 184 K/uL 137-338 Platelet mean volume [Entiti c volume] in Blood (test code = 92954-3) 8.4 fL 8.4-11.8 Neutrophils.band form/100 leukocytes in Blood (test code = 57123-6) 59.6 % 44.4-80.1 Lymphocytes/100 leukocytes i n Body fluid (test code = 54659-5) 31.9 % 10.0-50.0 Monocytes/100 leukocytes in Blood by Automated count (test code = 5905-5) 5.9 % 3.6-12.04 Eosinophils/100 leukocytes i n Blood by Automated count (test code = 713-8) 1.0 % 0.0-5.41 Basophils/100 leukocytes in Unspecified specimen (test code = 23495-6) 1.5 % 0.0-0.79 H [facility] Biloxidifferential panel, [id number] 03:30:00 NeutrophilsLymphocyteMonocytePlatelet EstimatePlatelet MorphologyMataTippah County HospitalComprehensive metabolic 2000 panel - Serum or [id number] 03:30:00* Test Item Value Reference Range Interpretation Comme [facility] glucose (test code = glucose) 116 mg/dL [...] (test code = 6768-6) 52 U/L 35-105 [facility] W Auto Differential panel - [id number] 03:30:00 * Test Item Value Reference Range Interpretation Comme [facility] white blood count (test code = white blood count) 4.3 K/uL 4.0-11.5 red blood count (test code = red blood count) 3.20 M/uL 3.80-5.20 L Hemoglobin [Mass/volume] in Blood (test code = 718-7) 10.0 g/dL 10.5-15.7 L hematocrit (test code = hematocrit) 30.6 % 34.0-50.0 Erythrocyte mean corpuscular volume [Entitic volume] (test code = 67539-8) 95.8 fL 78-98 Erythrocyte mean corpuscular hemoglobin [Entitic mass] (test code = 08144-7) 31.2 pg 26.2-33.4 mean corpuscular HGB conc (t est code = mean corpuscular HGB conc) 32.6 g/dL 31.5-36.2 red cell distribution width (test code = red cell distribution width) 11.2 % 11.5-15.5 L Platelets [#/volume] in Bloo d (test code = 94402-1) 184 K/uL 137-338 Platelet mean volume [Entiti c volume] in Blood (test code = 00333-4) 8.4 fL 8.4-11.8 Neutrophils.band form/100 leukocytes in Blood (test code = 12681-4) 59.6 % 44.4-80.1 Lymphocytes/100 leukocytes i n Body fluid (test code = 88378-3) 31.9 % 10.0-50.0 Monocytes/100 leukocytes in Blood by Automated count (test code = 5905-5) 5.9 % 3.6-12.04 Eosinophils/100 leukocytes i n Blood by Automated count (test code = 713-8) 1.0 % 0.0-5.41 Basophils/100 leukocytes in Unspecified specimen (test code = 86646-6) 1.5 % 0.0-0.79 [facility], [id number] 03:30:00 NeutrophilsLymphocyteMonocytePlatelet EstimatePlatelet MorphologyMataTippah County HospitalComprehensive metabolic 2000 panel - Serum or [id number] 03:30:00* Test Item Value Reference Range Interpretation [...] (test code = 6768-6) 52 U/L 35-105 [facility] W Auto Differential panel - [id number] 03:30:00 * Test Item Value Reference Range [...] corpuscular volume [Entitic volume] (test code = 57895-3) 95.8 fL 78-98 Erythrocyte mean corpuscular hemoglobin [Entitic mass] (test code = 93476-2) 31.2 pg 26.2-33.4 mean corpuscular HGB conc (t est code = mean corpuscular HGB conc) 32.6 g/dL 31.5-36.2 red cell distribution width (test code = red cell distribution width) 11.2 % 11.5-15.5 L Platelets [#/volume] in Bloo d (test code = 11289-4) 184 K/uL 137-338 Platelet mean volume [Entiti c volume] in Blood (test code = 45830-9) 8.4 fL 8.4-11.8 Neutrophils.band form/100 leukocytes in Blood (test code = 65071-3) 59.6 % 44.4-80.1 Lymphocytes/100 leukocytes i n Body fluid (test code = 51927-6) 31.9 % 10.0-50.0 Monocytes/100 leukocytes in Blood by Automated count (test code = 5905-5) 5.9 % 3.6-12.04 Eosinophils/100 leukocytes i n Blood by Automated count (test code = 713-8) 1.0 % 0.0-5.41 Basophils/100 leukocytes in Unspecified specimen (test code = 23030-4) 1.5 % 0.0-0.79 H [facility] Biloxidifferential panel, [id number] 03:30:00 NeutrophilsLymphocyteMonocytePlatelet EstimatePlatelet MorphologyMaGulfport Behavioral Health SystemComprehensive metabolic 2000 panel - Serum or [id number] 03:30:00* Test Item Value Reference Range Interpretation [...] (test code = 6768-6) 52 U/L 35-105 [facility] W Auto Differential panel - [id number] 12:57:00 * Test Item Value Reference Range Interpretation Comme nts white blood count (test code = white blood count) 4.5 K/uL 4.0-11.5 red blood count (test code = red blood count) 4.04 M/uL 3.80-5.20 Hemoglobin [Mass/volume] in Blood (test code = 718-7) 12.7 g/dL 10.5-15.7 hematocrit (test code = hematocrit) 38.3 % 34.0-50.0 Erythrocyte mean corpuscular volume [Entitic volume] (test code = 78436-1) 94.8 fL 78-98 Erythrocyte mean corpuscular hemoglobin [Entitic mass] (test code = 38947-5) 31.5 pg 26.2-33.4 mean corpuscular HGB conc (t est code = mean corpuscular HGB conc) 33.2 g/dL 31.5-36.2 red cell distribution width (test code = red cell distribution width) 11.2 % 11.5-15.5 L Platelets [#/volume] in Bloo d (test code = 61488-0) 261 K/uL 137-338 Platelet mean volume [Entiti c volume] in Blood (test code = 97276-1) 9.0 fL 8.4-11.8 Neutrophils.band form/100 leukocytes in Blood (test code = 40105-1) 67.1 % 44.4-80.1 Lymphocytes/100 leukocytes i n Body fluid (test code = 84371-8) 24.5 % 10.0-50.0 Monocytes/100 leukocytes in Blood by Automated count (test code = 5905-5) 6.1 % 3.6-12.04 Eosinophils/100 leukocytes i n Blood by Automated count (test code = 713-8) 0.4 % 0.0-5.41 Basophils/100 leukocytes in Unspecified specimen (test code = 59449-1) 1.9 % 0.0-0.79 H [facility] Biloxidifferential panel, [id number] 12:57:00 NeutrophilsLymphocyteMonocytePlatelet EstimatePlatelet MorphologyOceans Behavioral Hospital BiloxiComprehensive metabolic 2000 panel - Serum or [id number] 12:57:00* Test Item Value Reference Range Interpretation [...] (test code = 6768-6) 71 U/L 35-105 [facility] W Auto Differential panel - [id number] 12:57:00 * Test Item Value Reference Range Interpretation Comme nts white blood count (test code = white blood count) 4.5 K/uL 4.0-11.5 red blood count (test code = red blood count) 4.04 M/uL 3.80-5.20 Hemoglobin [Mass/volume] in Blood (test code = 718-7) 12.7 g/dL 10.5-15.7 hematocrit (test code = hematocrit) 38.3 % 34.0-50.0 Erythrocyte mean corpuscular volume [Entitic volume] (test code = 57574-0) 94.8 fL 78-98 Erythrocyte mean corpuscular hemoglobin [Entitic mass] (test code = 77220-4) 31.5 pg 26.2-33.4 mean corpuscular HGB conc (t est code = mean corpuscular HGB conc) 33.2 g/dL 31.5-36.2 red cell distribution width (test code = red cell distribution width) 11.2 % 11.5-15.5 L Platelets [#/volume] in Bloo d (test code = 13384-7) 261 K/uL 137-338 Platelet mean volume [Entiti c volume] in Blood (test code = 84736-3) 9.0 fL 8.4-11.8 Neutrophils.band form/100 leukocytes in Blood (test code = 20118-2) 67.1 % 44.4-80.1 Lymphocytes/100 leukocytes i n Body fluid (test code = 81489-1) 24.5 % 10.0-50.0 Monocytes/100 leukocytes in Blood by Automated count (test code = 5905-5) 6.1 % 3.6-12.04 Eosinophils/100 leukocytes i n Blood by Automated count (test code = 713-8) 0.4 % 0.0-5.41 Basophils/100 leukocytes in Unspecified specimen (test code = 30772-1) 1.9 % 0.0-0.79 H [facility] Biloxidifferential panel, [id number] 12:57:00 NeutrophilsLymphocyteMonocytePlatelet EstimatePlatelet MorphologyMaGulfport Behavioral Health SystemComprehensive metabolic 2000 panel - Serum or [id number] 12:57:00* Test Item Value Reference Range Interpretation [...] (test code = 6768-6) 71 U/L 35-105 [facility] W Auto Differential panel - [id number] 12:57:00 * Test Item Value Reference Range Interpretation Comme nts white blood count (test code = white blood count) 4.5 K/uL 4.0-11.5 red blood count (test code = red blood count) 4.04 M/uL 3.80-5.20 Hemoglobin [Mass/volume] in Blood (test code = 718-7) 12.7 g/dL 10.5-15.7 hematocrit (test code = hematocrit) 38.3 % 34.0-50.0 Erythrocyte mean corpuscular volume [Entitic volume] (test code = 53374-7) 94.8 fL 78-98 Erythrocyte mean corpuscular hemoglobin [Entitic mass] (test code = 38650-5) 31.5 pg 26.2-33.4 mean corpuscular HGB conc (t est code = mean corpuscular HGB conc) 33.2 g/dL 31.5-36.2 red cell distribution width (test code = red cell distribution width) 11.2 % 11.5-15.5 L Platelets [#/volume] in Bloo d (test code = 35995-6) 261 K/uL 137-338 Platelet mean volume [Entiti c volume] in Blood (test code = 07998-8) 9.0 fL 8.4-11.8 Neutrophils.band form/100 leukocytes in Blood (test code = 87418-4) 67.1 % 44.4-80.1 Lymphocytes/100 leukocytes i n Body fluid (test code = 11528-8) 24.5 % 10.0-50.0 Monocytes/100 leukocytes in Blood by Automated count (test code = 5905-5) 6.1 % 3.6-12.04 Eosinophils/100 leukocytes i n Blood by Automated count (test code = 713-8) 0.4 % 0.0-5.41 Basophils/100 leukocytes in Unspecified specimen (test code = 38528-0) 1.9 % 0.0-0.79 H [facility] Biloxidifferential panel, [id number] 12:57:00 NeutrophilsLymphocyteMonocytePlatelet EstimatePlatelet MorphologyOceans Behavioral Hospital BiloxiComprehensive metabolic 2000 panel - Serum or [id number] 12:57:00* Test Item Value Reference Range Interpretation [...] (test code = 6768-6) 71 U/L 35-105 [facility] BiloxiUrinalysis macro (dipstick) panel - [id number] 12:22:43* Test Item Value Reference Range Interpretation Comme nts Leukocytes (test code = Leukocytes) Trace Nitrite (test code = Nitrite) positive Urobilinogen (test code = Urobilinogen) 8 Protein (test code = Protein) 100 pH (test code = pH) 6.0 Blood (test code = Blood) Negative Specific [place] (test code = Specific [place]) 1.020 Ketone (test code = Ketone) Large (80) Bilirubin (test code = Bilirubin) Large Glucose (test code = Glucose) Negative Appearance (test code = Appearance) Clear Color (test code = Color) Dark Yellow [facility]oxiUrinalysis macro (dipstick) panel - [id number] 12:22:43* Test Item Value Reference Range Interpretation Comme nts Leukocytes (test code = Leukocytes) Trace Nitrite (test code = Nitrite) positive Urobilinogen (test code = Urobilinogen) 8 Protein (test code = Protein) 100 pH (test code = pH) 6.0 Blood (test code = Blood) Negative Specific [place] (test code = Specific [place]) 1.020 Ketone (test code = Ketone) Large (80) Bilirubin (test code = Bilirubin) Large Glucose (test code = Glucose) Negative Appearance (test code = Appearance) Clear Color (test code = Color) Dark Yellow [facility]iUrinalysis macro (dipstick) panel - [id number] 12:22:43* Test Item Value Reference Range Interpretation Comme nts Leukocytes (test code = Leukocytes) Trace Nitrite (test code = Nitrite) positive Urobilinogen (test code = Urobilinogen) 8 Protein (test code = Protein) 100 pH (test code = pH) 6.0 Blood (test code = Blood) Negative Specific [place] (test code = Specific [place]) 1.020 Ketone (test code = Ketone) Large (80) Bilirubin (test code = Bilirubin) Large Glucose (test code = Glucose) Negative Appearance (test code = Appearance) Clear Color (test code = Color) Dark Yellow [facility]iUrinalysis macro (dipstick) panel - [id number] 12:22:43* Test Item Value Reference Range Interpretation Comme nts Leukocytes (test code = Leukocytes) Trace Nitrite (test code = Nitrite) positive Urobilinogen (test code = Urobilinogen) 8 Protein (test code = Protein) 100 pH (test code = pH) 6.0 Blood (test code = Blood) Negative Specific [place] (test code = Specific [place]) 1.020 Ketone (test code = Ketone) Large (80) Bilirubin (test code = Bilirubin) Large Glucose (test code = Glucose) Negative Appearance (test code = Appearance) Clear Color (test code = Color) Dark Yellow [facility]iUrinalysis macro (dipstick) panel - [id number] 12:22:43* Test Item Value Reference Range Interpretation Comme nts Leukocytes (test code = Leukocytes) Trace Nitrite (test code = Nitrite) positive Urobilinogen (test code = Urobilinogen) 8 Protein (test code = Protein) 100 pH (test code = pH) 6.0 Blood (test code = Blood) Negative Specific [place] (test code = Specific [place]) 1.020 Ketone (test code = Ketone) Large (80) Bilirubin (test code = Bilirubin) Large Glucose (test code = Glucose) Negative Appearance (test code = Appearance) Clear Color (test code = Color) Dark Yellow [facility]iHemoglobin and Hematocrit panel - [id number] 06:06:00* Test Item Value Reference Range Interpretation Comme nts Hemoglobin [Mass/volume] in Blood (test code = 718-7) 13.1 g/dL 10.5-15.7 hematocrit (test code = hematocrit) 39.2 % 34.0-50.0 [facility]Com[facility] 2000 panel - Serum or Plasma [...] (test code = 6768-6) 54 U/L 35-105 [facility]iHemoglobin [facility] Hematocrit panel - [id number] 06:06:00* Test Item Value Reference Range Interpretation Comme nts Hemoglobin [Mass/volume] in Blood (test code = 718-7) 13.1 g/dL 10.5-15.7 hematocrit (test code = hematocrit) 39.2 % 34.0-50.0 [facility]Com[facility] 2000 panel - Serum or Plasma [...] (test code = 6768-6) 54 U/L 35-105 [facility]oglobin [facility] Hematocrit panel - [id number] 06:06:00* Test Item Value Reference Range Interpretation Comme nts Hemoglobin [Mass/volume] in Blood (test code = 718-7) 13.1 g/dL 10.5-15.7 hematocrit (test code = hematocrit) 39.2 % 34.0-50.0 [facility]iCom[facility] metabolic 2000 panel - Serum or Plasma [...] (test code = 6768-6) 54 U/L 35-105 [facility]iHemoglobin [facility] Hematocrit panel - [id number] 08:02:00* Test Item Value Reference Range Interpretation Comme nts Hemoglobin [Mass/volume] in Blood (test code = 718-7) 11.9 g/dL 10.5-15.7 hematocrit (test code = hematocrit) 34.5 % 34.0-50.0 [facility]Com[facility] 2000 panel - Serum or Plasma [...] (test code = 6768-6) 48 U/L 35-105 [facility]iH[facility] Hematocrit panel - [id number] 08:02:00* Test Item Value Reference Range Interpretation Comme nts Hemoglobin [Mass/volume] in Blood (test code = 718-7) 11.9 g/dL 10.5-15.7 hematocrit (test code = hematocrit) 34.5 % 34.0-50.0 [facility]Com[facility] 2000 panel - Serum or Plasma [...] (test code = 6768-6) 48 U/L 35-105 [facility] Hematocrit panel - [id number] 08:02:00* Test Item Value Reference Range Interpretation Comme nts Hemoglobin [Mass/volume] in Blood (test code = 718-7) 11.9 g/dL 10.5-15.7 hematocrit (test code = hematocrit) 34.5 % 34.0-50.0 [facility]Com[facility] 2000 panel - Serum or Plasma [...] (test code = 6768-6) 48 U/L 35-105 [facility] W Auto Differential panel - [id number] 02:57:00 * Test Item Value Reference Range Interpretation Comme nts white blood count (test code = white blood count) 5.1 K/uL 4.0-11.5 red blood count (test code = red blood count) 4.29 M/uL 3.80-5.20 Hemoglobin [Mass/volume] in Blood (test code = 718-7) 14.0 g/dL 10.5-15.7 hematocrit (test code = hematocrit) 41.3 % 34.0-50.0 Erythrocyte mean corpuscular volume [Entitic volume] (test code = 44083-3) 96.3 fL 78-98 Erythrocyte mean corpuscular hemoglobin [Entitic mass] (test code = 98110-0) 32.6 pg 26.2-33.4 mean corpuscular HGB conc (t est code = mean corpuscular HGB conc) 33.9 g/dL 31.5-36.2 red cell distribution width (test code = red cell distribution width) 10.3 % 11.5-15.5 L Platelets [#/volume] in Bloo d (test code = 22713-9) 216 K/uL 137-338 Platelet mean volume [Entiti c volume] in Blood (test code = 79650-9) 9.2 fL 8.4-11.8 Neutrophils.band form/100 leukocytes in Blood (test code = 07032-2) 69.8 % 44.4-80.1 Lymphocytes/100 leukocytes i n Body fluid (test code = 33505-7) 22.0 % 10.0-50.0 Monocytes/100 leukocytes in Blood by Automated count (test code = 5905-5) 6.1 % 3.6-12.04 Eosinophils/100 leukocytes i n Blood by Automated count (test code = 713-8) 0.3 % 0.0-5.41 Basophils/100 leukocytes in Blood by Automated count (test code = 706-2) 1.8 % 0.0-0.79 [facility] Biloxidifferential panel, [id number] 02:57:00 NeutrophilsBandLymphocyteAtypical LymphMonocyteEosinophilBasophilPlatelet EstimatePlatelet MorphologyPoikilocytosisTarget CellsHypersegmented PolysRouleauToxic VacuolationSmudge CellsMaGulfport Behavioral Health SystemComprehensive metabolic 2000 panel - Serum or [id number] 02:57:00* Test Item Value Reference Range Interpretation [...] (test code = 6768-6) 57 U/L 35-105 [facility] W Auto Differential panel - [id number] 02:57:00 * Test Item Value Reference Range Interpretation Comme nts white blood count (test code = white blood count) 5.1 K/uL 4.0-11.5 red blood count (test code = red blood count) 4.29 M/uL 3.80-5.20 Hemoglobin [Mass/volume] in Blood (test code = 718-7) 14.0 g/dL 10.5-15.7 hematocrit (test code = hematocrit) 41.3 % 34.0-50.0 Erythrocyte mean corpuscular volume [Entitic volume] (test code = 37062-6) 96.3 fL 78-98 Erythrocyte mean corpuscular hemoglobin [Entitic mass] (test code = 72590-7) 32.6 pg 26.2-33.4 mean corpuscular HGB conc (t est code = mean corpuscular HGB conc) 33.9 g/dL 31.5-36.2 red cell distribution width (test code = red cell distribution width) 10.3 % 11.5-15.5 L Platelets [#/volume] in Bloo d (test code = 30990-1) 216 K/uL 137-338 Platelet mean volume [Entiti c volume] in Blood (test code = 30763-4) 9.2 fL 8.4-11.8 Neutrophils.band form/100 leukocytes in Blood (test code = 62963-2) 69.8 % 44.4-80.1 Lymphocytes/100 leukocytes i n Body fluid (test code = 18209-9) 22.0 % 10.0-50.0 Monocytes/100 leukocytes in Blood by Automated count (test code = 5905-5) 6.1 % 3.6-12.04 Eosinophils/100 leukocytes i n Blood by Automated count (test code = 713-8) 0.3 % 0.0-5.41 Basophils/100 leukocytes in Blood by Automated count (test code = 706-2) 1.8 % 0.0-0.79 [facility] Biloxidifferential panel, [id number] 02:57:00 NeutrophilsBandLymphocyteAtypical LymphMonocyteEosinophilBasophilPlatelet EstimatePlatelet MorphologyPoikilocytosisTarget CellsHypersegmented PolysRouleauToxic VacuolationSmudge CellsMaGulfport Behavioral Health SystemComprehensive metabolic 2000 panel - Serum or [id number] 02:57:00* Test Item Value Reference Range Interpretation [...] (test code = 6768-6) 57 U/L 35-105 [facility] W Auto Differential panel - [id number] 02:57:00 * Test Item Value Reference Range Interpretation Comme nts white blood count (test code = white blood count) 5.1 K/uL 4.0-11.5 red blood count (test code = red blood count) 4.29 M/uL 3.80-5.20 Hemoglobin [Mass/volume] in Blood (test code = 718-7) 14.0 g/dL 10.5-15.7 hematocrit (test code = hematocrit) 41.3 % 34.0-50.0 Erythrocyte mean corpuscular volume [Entitic volume] (test code = 09468-2) 96.3 fL 78-98 Erythrocyte mean corpuscular hemoglobin [Entitic mass] (test code = 20002-5) 32.6 pg 26.2-33.4 mean corpuscular HGB conc (t est code = mean corpuscular HGB conc) 33.9 g/dL 31.5-36.2 red cell distribution width (test code = red cell distribution width) 10.3 % 11.5-15.5 L Platelets [#/volume] in Bloo d (test code = 03642-7) 216 K/uL 137-338 Platelet mean volume [Entiti c volume] in Blood (test code = 88526-1) 9.2 fL 8.4-11.8 Neutrophils.band form/100 leukocytes in Blood (test code = 61426-9) 69.8 % 44.4-80.1 Lymphocytes/100 leukocytes i n Body fluid (test code = 41374-6) 22.0 % 10.0-50.0 Monocytes/100 leukocytes in Blood by Automated count (test code = 5905-5) 6.1 % 3.6-12.04 Eosinophils/100 leukocytes i n Blood by Automated count (test code = 713-8) 0.3 % 0.0-5.41 Basophils/100 leukocytes in Blood by Automated count (test code = 706-2) 1.8 % 0.0-0.79 [facility] Biloxidifferential panel, [id number] 02:57:00 NeutrophilsBandLymphocyteAtypical LymphMonocyteEosinophilBasophilPlatelet EstimatePlatelet MorphologyPoikilocytosisTarget CellsHypersegmented PolysRouleauToxic VacuolationSmudge CellsMaGulfport Behavioral Health SystemComprehensive metabolic 2000 panel - Serum or [id number] 02:57:00* Test Item Value Reference Range Interpretation [...] (test code = 6768-6) 57 U/L 35-105 [facility] Auto Differential panel - Exfmo9628-19-87 07:30:00 * Test Item Value Reference Range Interpretation Comme nts white blood count (test code = white blood count) 5.0 K/uL 4.0-11.5 red blood count (test code = red blood count) 3.92 M/uL 3.80-5.20 Hemoglobin [Mass/volume] in Blood (test code = 718-7) 12.9 g/dL 10.5-15.7 hematocrit (test code = hematocrit) 38.7 % 34.0-50.0 Erythrocyte mean corpuscular volume [Entitic volume] (test code = 48522-1) 98.7 fL 78-98 H Erythrocyte mean corpuscular hemoglobin [Entitic mass] (test code = 60176-9) 33.0 pg 26.2-33.4 mean corpuscular HGB conc (t est code = mean corpuscular HGB conc) 33.4 g/dL 31.5-36.2 red cell distribution width (test code = red cell distribution width) 11.3 % 11.5-15.5 L Platelets [#/volume] in Bloo d (test code = 04381-4) 207 K/uL 137-338 Platelet mean volume [Entiti c volume] in Blood (test code = 82527-4) 7.7 fL 8.4-11.8 L Neutrophils.band form/100 leukocytes in Blood (test code = 44222-1) 54.8 % 44.4-80.1 Lymphocytes/100 leukocytes i n Body fluid (test code = 69799-5) 35.5 % 10.0-50.0 Monocytes/100 leukocytes in Blood by Automated count (test code = 5905-5) 6.5 % 3.6-12.04 Eosinophils/100 leukocytes i n Blood by Automated count (test code = 713-8) 1.4 % 0.0-5.41 Basophils/100 leukocytes in Blood by Automated count (test code = 706-2) 1.7 % 0.0-0.79 H [facility] Groupdifferential panel, toxmp4271-92-15 07:30:00 NeutrophilsBandLymphocyteMonocytePlatelet EstimateMatagorda Medical GroupRubella virus IgG Ab [Titer] in Yoxif9235-53-97 07:30:00* Test Item Value Reference Range Interpretation Comme nts Rubella virus IgG Ab [Units/volume] in Serum by Immunoassay (test code = 5334-8) 106.7 [IU]/mL [facility] GroupHIV 1+2 Ab [Presence] in Njndf2945-10-10 07:30:00HIV P24 AgHIV-1/2 AbMatagorda Medical GroupABO & Rh group [Type] in Hmzea2592-87-65 07:30:00* Test Item Value Reference Range Interpretation Comme nts Rh [Type] in Blood (test cod e = 43020-9) 4+ ABO and Rh group panel - Blo od (test code = 24742-3) Ab positive [facility] GroupBlood group antibody screen [Presence] in Serum or Plasma 2019-01-26 07:30:00* Test Item Value Reference Range Interpretation Comme nts Blood group antibody screen [Presence] in Serum or Plasma (test code = 890-4) negative [facility]iReagin Ab [Presence] in Serum by MKX8369-03-81 07:30:00* Test Item Value Reference Range Interpretation Comme nts Reagin Ab [Presence] in Seru m by RPR (test code = 19177-7) nonreactive nonreactive [facility]oxiHepatitis B virus surface Ag [Presence] in Serum 2019-01-26 07:30:00* Test Item Value Reference Range Interpretation Comme nts .hepatitis B surface antigen (test code = .hepatitis B surface antigen) negative negative [facility]oxiBacteria identified in Urine by Fzcsuwu2702-57-96 07:30:00* Test Item Value Reference Range Interpretation Comme nts Bacteria identified in Urine by Culture (test code = 630-4) no growth at 48 hrs. [facility]oxiCBC W Auto Differential panel - Evzfu7751-79-10 07:30:00 * Test Item Value Reference Range Interpretation Comme nts white blood count (test code = white blood count) 5.0 K/uL 4.0-11.5 red blood count (test code = red blood count) 3.92 M/uL 3.80-5.20 Hemoglobin [Mass/volume] in Blood (test code = 718-7) 12.9 g/dL 10.5-15.7 hematocrit (test code = hematocrit) 38.7 % 34.0-50.0 Erythrocyte mean corpuscular volume [Entitic volume] (test code = 50300-6) 98.7 fL 78-98 H Erythrocyte mean corpuscular hemoglobin [Entitic mass] (test code = 74084-7) 33.0 pg 26.2-33.4 mean corpuscular HGB conc (t est code = mean corpuscular HGB conc) 33.4 g/dL 31.5-36.2 red cell distribution width (test code = red cell distribution width) 11.3 % 11.5-15.5 L Platelets [#/volume] in Bloo d (test code = 03225-6) 207 K/uL 137-338 Platelet mean volume [Entiti c volume] in Blood (test code = 23062-0) 7.7 fL 8.4-11.8 L Neutrophils.band form/100 leukocytes in Blood (test code = 69390-3) 54.8 % 44.4-80.1 Lymphocytes/100 leukocytes i n Body fluid (test code = 22766-1) 35.5 % 10.0-50.0 Monocytes/100 leukocytes in Blood by Automated count (test code = 5905-5) 6.5 % 3.6-12.04 Eosinophils/100 leukocytes i n Blood by Automated count (test code = 713-8) 1.4 % 0.0-5.41 Basophils/100 leukocytes in Blood by Automated count (test code = 706-2) 1.7 % 0.0-0.79 H [facility] Groupdifferential panel, hxyzv2116-97-73 07:30:00 NeutrophilsBandLymphocyteMonocytePlatelet EstimateMatagorda Medical GroupRubella virus IgG Ab [Titer] in Cksas8943-53-99 07:30:00* Test Item Value Reference Range Interpretation Comme nts Rubella virus IgG Ab [Units/volume] in Serum by Immunoassay (test code = 5334-8) 106.7 [IU]/mL [facility] GroupHIV 1+2 Ab [Presence] in Rqxoj1343-54-22 07:30:00HIV P24 AgHIV-1/2 AbMatagorda Medical GroupABO & Rh group [Type] in Scekh9182-76-69 07:30:00* Test Item Value Reference Range Interpretation Comme nts Rh [Type] in Blood (test cod e = 22185-8) 4+ ABO and Rh group panel - Blo od (test code = 54357-6) Ab positive [facility] GroupBlood group antibody screen [Presence] in Serum or Plasma 2019-01-26 07:30:00* Test Item Value Reference Range Interpretation Comme nts Blood group antibody screen [Presence] in Serum or Plasma (test code = 890-4) negative [facility] GroupReagin Ab [Presence] in Serum by RBQ4017-31-56 07:30:00* Test Item Value Reference Range Interpretation Comme nts Reagin Ab [Presence] in Seru m by RPR (test code = 29250-0) nonreactive nonreactive [facility]oxiHepatitis B virus surface Ag [Presence] in Serum 2019-01-26 07:30:00* Test Item Value Reference Range Interpretation Comme nts .hepatitis B surface antigen (test code = .hepatitis B surface antigen) negative negative [facility]oxiBacteria identified in Urine by Djgvaps0959-13-92 07:30:00* Test Item Value Reference Range Interpretation Comme nts Bacteria identified in Urine by Culture (test code = 630-4) no growth at 48 hrs. [facility]oxiCBC W Auto Differential panel - Aupvw3708-97-01 07:30:00 * Test Item Value Reference Range Interpretation Comme nts white blood count (test code = white blood count) 5.0 K/uL 4.0-11.5 red blood count (test code = red blood count) 3.92 M/uL 3.80-5.20 Hemoglobin [Mass/volume] in Blood (test code = 718-7) 12.9 g/dL 10.5-15.7 hematocrit (test code = hematocrit) 38.7 % 34.0-50.0 Erythrocyte mean corpuscular volume [Entitic volume] (test code = 30786-9) 98.7 fL 78-98 H Erythrocyte mean corpuscular hemoglobin [Entitic mass] (test code = 00754-6) 33.0 pg 26.2-33.4 mean corpuscular HGB conc (t est code = mean corpuscular HGB conc) 33.4 g/dL 31.5-36.2 red cell distribution width (test code = red cell distribution width) 11.3 % 11.5-15.5 L Platelets [#/volume] in Bloo d (test code = 56539-5) 207 K/uL 137-338 Platelet mean volume [Entiti c volume] in Blood (test code = 08413-7) 7.7 fL 8.4-11.8 L Neutrophils.band form/100 leukocytes in Blood (test code = 88518-9) 54.8 % 44.4-80.1 Lymphocytes/100 leukocytes i n Body fluid (test code = 54963-8) 35.5 % 10.0-50.0 Monocytes/100 leukocytes in Blood by Automated count (test code = 5905-5) 6.5 % 3.6-12.04 Eosinophils/100 leukocytes i n Blood by Automated count (test code = 713-8) 1.4 % 0.0-5.41 Basophils/100 leukocytes in Blood by Automated count (test code = 706-2) 1.7 % 0.0-0.79 H [facility] Groupdifferential panel, dzjob6594-99-67 07:30:00 NeutrophilsBandLymphocyteMonocytePlatelet EstimateMatagorda Medical GroupRubella virus Ab [Titer] in Lxtmt4680-95-78 07:30:00* Test Item Value Reference Range Interpretation Comme nts Rubella virus IgG Ab [Units/volume] in Serum by Immunoassay (test code = 5334-8) 106.7 [IU]/mL [facility] GroupHIV 1+2 Ab [Presence] in Henkx6001-61-62 07:30:00HIV P24 AgHIV-1/2 AbMatagorda Medical GroupABO & Rh group [Type] in Svtlz7694-39-06 07:30:00* Test Item Value Reference Range Interpretation Comme nts Rh [Type] in Blood (test cod e = 31957-8) 4+ ABO and Rh group panel - Blo od (test code = 65444-9) Ab positive [facility] GroupBlood group antibody screen [Presence] in Serum or Plasma 2019-01-26 07:30:00* Test Item Value Reference Range Interpretation Comme nts Blood group antibody screen [Presence] in Serum or Plasma (test code = 890-4) negative [facility] GroupReagin Ab [Presence] in Serum by WFI7336-81-29 07:30:00* Test Item Value Reference Range Interpretation Comme nts Reagin Ab [Presence] in Seru m by RPR (test code = 79746-0) nonreactive nonreactive [facility] GroupHepatitis B virus surface Ag [Presence] in Serum 2019-01-26 07:30:00* Test Item Value Reference Range Interpretation Comme nts .hepatitis B surface antigen (test code = .hepatitis B surface antigen) negative negative [facility] GroupBacteria identified in Urine by Ndwqssa2993-18-28 07:30:00* Test Item Value Reference Range Interpretation Comme nts Bacteria identified in Urine by Culture (test code = 630-4) no growth at 48 hrs. [facility]oxiChoriogonadotropin.beta subunit [Units/volume] in Serum or Ckmnok2166-26-57 02:05:00* Test Item Value Reference Range Interpretation Comme nts HCG quantitative (test code = HCG quantitative) 4590.0 mIU/mL 0-5 H [facility] BiloxiChoriogonadotropin.beta subunit [Units/volume] in Serum or Xhrzwd8306-77-96 02:05:00* Test Item Value Reference Range Interpretation Comme nts HCG quantitative (test code = HCG quantitative) 4590.0 mIU/mL 0-5 H [facility] BiloxiChoriogonadotropin.beta subunit [Units/volume] in Serum or Wufcyz4977-60-68 02:05:00* Test Item Value Reference Range Interpretation Comme nts HCG quantitative (test code = HCG quantitative) 4590.0 mIU/mL 0-5 H [facility] BiloxiCBC W Auto Differential panel - Emscj7772-14-09 11:00:00 * Test Item Value Reference Range Interpretation Comme nts white blood count (test code = white blood count) 4.9 K/uL 4.0-11.5 red blood count (test code = red blood count) 4.02 M/uL 3.80-5.20 Hemoglobin [Mass/volume] in Blood (test code = 718-7) 13.0 g/dL 10.5-15.7 hematocrit (test code = hematocrit) 40.1 % 34.0-50.0 Erythrocyte mean corpuscular volume [Entitic volume] (test code = 89525-9) 99.7 fL 78-98 H Erythrocyte mean corpuscular hemoglobin [Entitic mass] (test code = 66926-6) 32.4 pg 26.2-33.4 mean corpuscular HGB conc (t est code = mean corpuscular HGB conc) 32.5 g/dL 31.5-36.2 red cell distribution width (test code = red cell distribution width) 11.4 % 11.5-15.5 L Platelets [#/volume] in Bloo d (test code = 79400-5) 212 K/uL 137-338 Platelet mean volume [Entiti c volume] in Blood (test code = 19817-4) 8.4 fL 8.4-11.8 Neutrophils.band form/100 leukocytes in Blood (test code = 73782-9) 53.6 % 44.4-80.1 Lymphocytes/100 leukocytes i n Body fluid (test code = 42585-1) 37.4 % 10.0-50.0 Monocytes/100 leukocytes in Blood by Automated count (test code = 5905-5) 5.5 % 3.6-12.04 Eosinophils/100 leukocytes i n Blood by Automated count (test code = 713-8) 1.9 % 0.0-5.41 Basophils/100 leukocytes in Blood by Automated count (test code = 706-2) 1.6 % 0.0-0.79 H [facility] Biloxidifferential panel, iuzzn6229-82-60 11:00:00 NeutrophilsBandLymphocyteMonocyteEosinophilBasophilPlatelet EstimatePlatelet MorphologyPolychromasiaHypochromasiaPoikilocytosisBasophilic StipplingAnisocytosisMicrocytosisMacrocytosisOvalocytesStomatocyteBurr CellsAcanthocytesMaGulfport Behavioral Health SystemReagin Ab [Presence] in Serum by RPR 2019-01-03 11:00:00* Test Item Value Reference Range Interpretation Comme nts Reagin Ab [Presence] in Seru m by RPR (test code = 13721-3) nonreactive nonreactive [facility] BiloxiComprehensive metabolic 2000 panel - Serum or Plasma [...] (test code = 6768-6) 59 U/L 35-105 [facility]oxiHIV 1+2 Ab [Presence] in Rzgjb2379-62-51 11:00:00HIV P24 AgHIV-1/2 AbMaGulfport Behavioral Health SystemHepatitis B virus surface Ag [Presence] in Ibldg9832-05-65 11:00:00* Test Item Value Reference Range Interpretation Comme nts .hepatitis B surface antigen (test code = .hepatitis B surface antigen) negative negative [facility] Notes Date/Time Note Provider Source 2024-02-24 09:24:06 MVA3LIuAip7IgEb6FXe5 6rGDGJomS8Z22n AoYta5I7/hRfuWyCluFNVRKsEtdpHx1144 -04-18T09:24:06 Chief ComplaintPatient presents withAnxietyFollow up on anxiety and depression. She states that she feels the same. [place] medication for [place] [address]-5Xtwfo HvsqHH1254-20-54G90:24:50Nurse NoteTXT1.2.840.522291.1.13.131.2.7 .2.607861|941705519YBUssqtjohy for patient kitg14839-0Unmnx NoteLNNARRATIVEFormatted C-CDA narrative mlfz055242087Jhrui Hurst MA IIAgnesian HealthCare[address] [facility] CenterTXTX7702577025U IQQ1566-07-55D32:24:501.2.840.1143 50.1.72.3.15|1.2.840.004085.1.13.1 31.2.7.2.727879_414342382 Marce Castellano MA, II [facility] 2024-01-25 13:20:53 OsQIG49iOcbe6UK5mz8z 6mNWNSfgLbarZa Ky+oucvegaMzwcCPJx7sqgH5fFYr+e202T13:20:53 Chief ComplaintPatient presents withHeadacheHeadaches that she's had for years. No nausea or vomiting. The pain is either on the right side or the left side. No visual disturbance. No prescribed medications. OTC meds [place] no [place] [address]-8Abnnt KgsoOH3556-10-42Q64:21:11Nurse NoteTXT1.2.840.678767.1.13.131.2.7 .2.518290|662327627SXMyyxblfzo for patient qehk77448-0Gnxvp NoteLNNARRATIVEFormatted C-CDA narrative svgw499483106Kkkyg Nona [place] HUMPHREYTammy [place] [address] [facility] CenterTXTX7702577025U XDV5650-88-18N24:21:111.2.840.1143 50.1.72.3.15|1.2.840.566042.1.13.1 31.2.7.2.727879_407660113 Marce Castellano MA, II [facility] 2023-12-07 14:20:25 YLzwKtHYsE+4kiVTj6le EwF4zYTlpQQaZ9 PL6PIg26voK55igpzi7+wTVfh3az1J8477 -01-30T14:20:25 Chief ComplaintPatient presents withCoughCough [place] 1 [place] [address]-4Bjpyu KwrvCS6596-88-75R51:21:45Nurse NoteTXT1.2.840.095867.1.13.131.2.7 .2.940022|801140545WCMsgpbtwcu for patient xpqt71180-0Ufgky NoteLNNARRATIVEFormatted C-CDA narrative ufoy534808228Fbmxw Hurst [place] [address]TXTX7702577025U HTP6579-88-45D58:21:451.2.840.1143 50.1.72.3.15|1.2.840.371468.1.13.1 31.2.7.2.727879_396424738 Marce Castellano MA, II [facility] 2019-08-29 21:34:00 HAogrgpceas46848709u 3bNtNkH290rGBX wccTWRbTlLTFt3h+rGYsRmcq0caOHomHEF 6dDH37FmYJkJupS8083-69-24S82:34:00 [facility]OB Disch PostpartumREPORT#:[id number] REPORT STATUS: SignedDATE:08/29/19 TIME: 2133 PATIENT: ANJELICA NAVARRO UNIT #: [id number]#: [id number] ROOM/BED: 2023-ADOB: [birth year] AGE: 29 SEX: F ATTEND: Isaiah Chase AUTHOR: Isaiah Chaes MD * ALL edits or amendments must be made on the electronic/computer document * Subjective SubjectivePatient reports: Patient reports: Yes: normal lochia, pain management effective, tolerating po well, voiding well, flatus. No: complaints. Comments:seen around 8am Objective GeneralVS:Vital Signs Date Temp Pulse Resp B/P B/P Mean Pulse Ox FiO2 08/29 98.2-99.0 89-108 - 113-131/76-81 88.2-97.7 Last Documented: Result Date Time [...] blood loss due to surgery at 2137 [facility] #:[id number] OF REPORT OBObstetric aqjw6504-34-52D00:34:00F.NXRX91738 022-0374AVAvailable for patient mfgkUONGQUTYWXQONX9536-92-04Q64:37 :33 [facility] 2019-08-29 19:07:00 CSvuyohekge48933506g 7dIzj79M5F/aeO iTSrRkvY30i6a8DooX+bjtQSLDjLAwF8+/ 8Na2zpUB6ChqIfQ7396-07-54U26:07:00 0892-8094 [facility] [address] PATIENT NAME: ANJELICA NAVARRO ADMIT DATE: 08/02/19ACCOUNT NO: [id number] ROOM NO: F.2023 AGE: 29 SEX: F ADMITTING PHYSICIAN: Isaiah Chase MD ATTENDING PHYSICIAN: Isaiah Chase MD OPERATION DATE: 08/26/2019 PREOPERATIVE DIAGNOSES:1. Intrauterine at 35 plus weeks.2. Intrauterine growth restriction.3. Abnormal Dopplers.4. Periodic prolonged decelerations. POSTOPERATIVE DIAGNOSES:1. Intrauterine at 35 plus weeks.2. Intrauterine growth restriction.3. Abnormal Dopplers.4. Periodic prolonged decelerations. PROCEDURE: Primary low segment section via Pfannenstiel. SURGEON: Isaiah Chase MD SAND ANALYST: Cyndi Jarvis SA COMPLICATIONS: None. ESTIMATED BLOOD LOSS: 600 mL. INTRAVENOUS FLUIDS: 1000 mL LR. URINE OUTPUT: Clear at the end of the procedure. FINDINGS: Male , cephalic presentation, Apgars 8 and 9. Weight [...] Placenta. Dictated By: Isaiah Chase MD WT: OP:F.NANCY/SHANIA/NTSDD: 08/29/2019 19:07:31DT: 08/29/2019 19:57:21Conf#: [id number]/DID#: [id number] Authenticated by Isaiah Chase MD On 09/27/2019 06:43:29 AM at 0643 PATIENT NAME: ANJELICA NAVARRO vbbitw0839-33-13B11:57:00F.LRW9311 1022-0419AVAvailable for patient fnefIJOLPTLEXUPPUW7943-70-45N17:44 :05 [facility] 2019-08-28 21:20:00 DMnsvhkgekf01582662f 3QPq1FxgRxwO4y gXk7Af5RnNLnc/31z4zGvspcCMlp5oR0Aa oyuRL46x2DkmaIj0204-69-02S78:20:00 [facility]OB Postpart Progr NoteREPORT#:[id number] REPORT STATUS: SignedDATE:08/28/19 TIME: 2119 PATIENT: ANJELICA NAVARRO UNIT #: [id number]#: [id number] ROOM/BED: 2023-ADOB: [birth year] AGE: 29 SEX: F ATTEND: Isaiah Chase MDADM AUTHOR: Isaiah Chase MD * ALL edits or amendments must be made on the electronic/computer document * Subjective SubjectivePatient reports: Patient reports: Yes: normal lochia, pain management effective, tolerating po well, voiding well, tolerating ambulation, flatus. No: complaints. Objective GeneralVS:Vital Signs Date Temp Pulse Resp B/P B/P Mean Pulse Ox FiO2 10/21 98.0-98.8 87-110 - 97-115/66-77 76.1 Last Documented: Result Date Time [...] nml progressPlan: routine care at 2120 RPT #:[id number] OF REPORT PRProgress Cvls8369-70-63A61:20:00F.GBWM05219 021-0382AVAvailable for patient aomvFDYHNAVFDKHKPJ0633-98-40M85:21 :08 [facility] 2019-08-27 16:35:00 ZNcajcumejn23065115M 6obGMuvMGeWsOx y8KQKKuj5GS7KvrAt6Q4d9O0xPuq+pNvLx YRBEEUpa9OfbZ3D7098-31-39J55:35:00 [facility]OB Postpart Progr NoteREPORT#:[id number] REPORT STATUS: SignedDATE:08/27/19 TIME: 1635 PATIENT: ANJELICA NAVARRO UNIT #: [id number]#: [id number] ROOM/BED: 2023-ADOB: [birth year] AGE: 29 SEX: F ATTEND: Isaiah Chase [facility] AUTHOR: Isaiah Chase MD * ALL edits [...] nml progressPlan: routine care at 1635 RPT #:[id number] OF REPORT PRProgress Kjxc7615-70-89Z24:35:00F.OLLE56191 020-0289AVAvailable for patient xaixCFYLODWMGBNVXQ7165-76-82P62:36 :13 [facility] 2019-08-25 20:54:00 DZcapgobqwa91656245c A/LC1yEzbblrXt SPt7ncsRjTBMVUy8PRNSEL0SMP9QjK0B5G hXIVIweguqec7Mb7393-73-55G16:54:00 [facility]OB Antepartum Prog NoteREPORT#:[id number] REPORT STATUS: SignedDATE:08/25/19 TIME: 2053 PATIENT: ANJELICA NAVARRO UNIT #: [id number]#: [id number] [address] [birth year] AGE: 29 SEX: F ATTEND: Isaiah Chase AUTHOR: Isiaah Chase MD * ALL edits or amendments [...] Pulse 77 08/25 0851 Pulse Ox 97 / 0832 Vital Signs Date Temp Pulse Resp [...] TESTING, otherwise in am at 2100 RPT #:[id number] OF REPORT PRProgress Ryry4162-16-67U80:54:00F.VCPO08055 018-0448AVAvailable for patient jahdIDXWWWKMYBKCOU1283-42-77N94:00 :56 [facility] 2019-08-[facility] 20:53:00 OVsknsbpjkv320524448 m4hwBni6xJ+k64 j+1unSU46737fa3u6LGTYCxjuq8v0RHel4 PcrXSEXgIxuvqXc6015-90-66N04:53:00 [facility]OB Antepartum Prog NoteREPORT#:[id number] REPORT STATUS: SignedDATE:08/24/19 TIME: 2052 PATIENT: ANJELICA NAVARRO UNIT #: [id number]#: [id number] [address] [birth year] AGE: 29 SEX: F ATTEND: Isaiah Chase [facility] AUTHOR: Isaiah Chase MD * ALL edits or amendments must be made on the electronic/computer document * Subjective SubjectivePatient reports: Patient reports: Yes normal movement, No no complaints, No abdominal pain, No vaginal bleeding, No leaking fluid, No contractionsComments:SEEN AROUND 8AM Objective GeneralVS:Last Documented: Result Date Time Temp 98.2 08/24 916 Resp 18 08/24 916 B/P Mean 93.0 08/24 916 B/P 120/76 08/24 916 Pulse 84 08/24 [...] TESTING, otherwise THIS WEDNESDAY at 2053 RPT #:[id number] OF REPORT PRProgress Pofj0594-02-75K45:53:00F.LHRX27812 017-0456AVAvailable for patient vvofYUSPDJYANLSRFL5710-12-94D80:54 :29 [facility] 2019-08-23 20:03:00 ROziadtunyc30161391Q kbdsrabJfSGcO8 jr/RT1VBC6CGvJC+B7bz1Aui2E/xw6ajFV rG8OPgYJgLJsW6p2059-55-02B68:03:00 [facility]OB Antepartum Prog NoteREPORT#:[id number] REPORT STATUS: SignedDATE:08/23/19 TIME: 2002 PATIENT: ANJELICA NAVARRO UNIT #: [id number]#: [id number] [address] [birth year] AGE: 29 SEX: F ATTEND: Isaiah Chase [facility] AUTHOR: Isaiah Chase MD * ALL edits or amendments must be made on the electronic/computer document * Subjective SubjectivePatient reports: Patient reports: Yes normal movement, No no complaints, No abdominal pain, No vaginal bleeding, No leaking fluid, No contractionsComments:seen around 8am Objective GeneralVS:Last Documented: Result Date Time Temp 98.1 08/23 0832 Resp 16 10/16 0832 B/P Mean 108.0 08/23 0832 Pulse [...] NON REASSURING TESTING, otherwise THIS WEDNESDAY at 2004 RPT #:[id number] OF REPORT PRProgress Tzux8048-50-02E10:03:00F.XWFC40045 016-0420AVAvailable for patient vvmgEIGQAVZTBNHPPP0421-92-10P34:04 :55 [facility] 2019-08-22 17:12:00 AWcawnjorbe24174581Z hobDU0/SyMNO2b D7SaRq9FXo10ZMPCGY+tcespgHxNzlJAip GUrytx685R9Ns/K0415-62-82Z66:12:00 [facility]OB Antepartum Prog NoteREPORT#:[id number] REPORT STATUS: SignedDATE:08/22/19 TIME: 1712 PATIENT: ANJELICA NAVARRO UNIT #: [id number]#: [id number] ROOM/BED: [facility]-ADOB: [birth year] AGE: 29 SEX: F ATTEND: Isaiah Chase [facility] AUTHOR: Isaiah Chase MD * ALL edits [...] TESTING, otherwise THIS WEDNESDAY at 1713 RPT #:[id number] OF REPORT PRProgress Spwq4437-28-04Y84:12:00F.GMQS16578 015-0348AVAvailable for patient rxmyUGXLPEASRKQHMC4328-11-53Q86:13 :54 [facility] 2019-08-21 12:42:00 FYvriwoxjes23267065V 8Cizvdpg6vW4TR GPzKYAOUMce+3I/4wUG7ajryjMokVGUUWn RoXEl4Ca56xDB9L2308-30-07M55:42:00 [facility]OB Antepartum Prog NoteREPORT#:[id number] REPORT STATUS: SignedDATE:08/21/19 TIME: 1242 PATIENT: ANJELICA NAVARRO UNIT #: [id number]#: [id number] ROOM/BED: [facility]-ADOB: [birth year] AGE: 29 SEX: F ATTEND: Rena,Zitennille [facility] AUTHOR: Cuco Cam MD * ALL edits [...] Pulse Resp B/P B/P Mean Pulse Ox NwW539/-08/21 98.1-98.7 76-147 16-18 117-120/67-74 86.0-91.0 82-100 Patient [...] weeks, scheduled for - per pt Dr rivera aware at 1424 RPT #:[id number] OF REPORT PRProgress Yuvi7521-35-27W18:42:00F.XMWD06737 014-0207AVAvailable for patient urmaBQLEITCGOKKTCI6963-70-24R11:25 :16 [facility] 2019-08-20 12:53:00 [id number] KTuSlhBwDjw0s5 y2SMlBsdqJkAYXbrGcE1Jfe0bw/2EaPkTW kxKsm63xprtVhqz7009-86-96J41:53:00 [facility] ([facility]OB Antepartum Prog NoteREPORT#:[id number] REPORT STATUS: SignedDATE:08/20/19 TIME: 1253 PATIENT: ANJELICA NAVARRO UNIT #: [id number]#: [id number] [address] [birth year] AGE: 29 SEX: F ATTEND: Isaiah Chase [facility] AUTHOR: Vincent Rivera MD * ALL edits or amendments must [...] at 35- 36 weeks at 1253 RPT #:[id number] OF REPORT PRProgress Htor6108-64-17T34:53:00F.UMKR45557 013-0201AVAvailable for patient oxxuLSTDNCVSSSZUIY8412-76-54U99:53 :53 [facility] 2019-08-19 11:54:00 [id number] dVZt6Mi9orhBAe IgT5nS7wPMk7YL3jYS6kYSyFDLubCE0U4K n1Oz6MKptK25M459661-68-63O04:54:00 [facility]OB Antepartum Prog NoteREPORT#:[id number] REPORT STATUS: SignedDATE:08/19/19 TIME: 1154 PATIENT: ANJELICA NAVARRO UNIT #: [id number]#: [id number] ROOM/BED: [address] [birth year] AGE: 29 SEX: F ATTEND: Isaiah Chase [facility] AUTHOR: Vincent Rivera MD * ALL edits or amendments must [...] at 35- 36 weeks at 1155 RPT #:[id number] OF REPORT PRProgress Arzn0388-92-91J87:54:00F.RXJV78125 012-0209AVAvailable for patient kachRCQKIOQEIDERUI2691-49-48M57:55 :35 [facility] 2019-08-18 18:02:00 DNcccuxomfr36440177G ixGeTQtCy0/ACZ hRsN9gYL68lqkjxkjTof6TXMcHX0BAd3UR NVLXVMmyrqPy+6O8404-49-12C27:02:00 [facility] ([facility])OB Antepartum Prog NoteREPORT#:[id number] REPORT STATUS: SignedDATE:08/18/19 TIME: 1801 PATIENT: ANJELICA NAVARRO UNIT #: [id number]#: [id number] [address] AGE: 29 SEX: F ATTEND: Isaiah Chase [facility] AUTHOR: Isaiah Chase MD * ALL edits [...] 73 08/18 0959 Pulse Ox 100 08/18 0959 Resp 16 08/18 0959 Temp 98.2 08/17 1923 Vital Signs Date [...] at 35- 36 weeks at 1802 RPT #:[id number] OF REPORT PRProgress Kaqr7046-82-99M51:02:00F.EDLU95740 011-0375AVAvailable for patient uodoEDCDQAJRKJTUYO9317-01-13X87:03 :16 [facility] 2019-08-17 21:38:00 UIwmdszeign53482322O T3JR+Nyf5tnjfa kYkqep4DDIZZ1E+I8yQOjJmmHcjJYfUo73 RUkHmHINpmOX1tE7191-08-26I16:38:00 [facility] ([facility])OB Antepartum Prog NoteREPORT#:[id number] REPORT STATUS: SignedDATE:08/17/19 TIME: 2137 PATIENT: ANJELICA NAVARRO UNIT #: [id number]#: [id number] [address] [birth year] AGE: 29 SEX: F ATTEND: Isaiah Chase [facility] AUTHOR: Isaiah Chase MD * ALL edits or amendments must be made on the electronic/computer document * Subjective SubjectivePatient reports: Patient reports: Yes normal movement, No no complaints, No abdominal pain, No vaginal bleeding, No leaking fluid, No contractionsComments:seen around 8am Objective GeneralVS:Last Documented: Result Date Time B/P Mean 74.0 08/17 1923 B/P 104/61 08/17 192 Pulse 88 08/17 192 Pulse Ox 100 [...] otherwise at 35- 36 weeks at 2142 RPT #:[id number] OF REPORT PRProgress Bmas0500-77-50A63:38:00F.SZBB50516 010-0434AVAvailable for patient twwdPBOLXOUWTAAWKK8618-22-52J99:43 :19 [facility] 2019-08-16 21:42:00 MWudazmyodx53641692c bVV6MbAisISoHa M9r/7katt6bIu6t0DTYfcDkbTITjvRYvwU FA3JdIJuxiupVKq8694-43-72P56:42:00 [facility])OB Antepartum Prog NoteREPORT#:[id number] REPORT STATUS: SignedDATE:08/16/19 TIME: 2141 PATIENT: ANJELICA NAVARRO UNIT #: [id number]#: [id number] ROOM/BED: [facility]-ADOB: [birth year] AGE: 29 SEX: F ATTEND: Isaiah Chase [facility] AUTHOR: Isaiah Chase MD * ALL edits [...] 99 08/16 1952 Pulse Ox 100 08/16 0749 Resp 16 08/16 0749 Temp 98.1 08/15 [...] at 35- 36 weeks at 2150 RPT #:[id number] OF REPORT PRProgress Xyhg5235-73-94T82:42:00F.WPTP20803 009-0435AVAvailable for patient lbvpKMDJWRAFQFTFIT0268-06-64U27:50 :48 [facility] 2019-08-15 18:36:00 VEaolrdexel72735546c VFr+s+B1n2tWYl l1/ixuy8u4kRfbKChShwkPjLQyp7XLCooq OJPT8E4y13Yc99D1666-07-51R74:36:00 [facility])OB Antepartum Prog NoteREPORT#:[id number] REPORT STATUS: SignedDATE:08/15/19 TIME: 183 PATIENT: ANJELICA NAVARRO UNIT #: [id number]#: [id number] [address] [birth year] AGE: 29 SEX: F ATTEND: Isaiah Chase [facility] AUTHOR: Isaiah Chase MD * ALL edits [...] at 35- 36 weeks at 1837 RPT #:[id number] OF REPORT PRProgress Ehsu1768-15-92I73:36:00F.UUHE65637 008-0368AVAvailable for patient iuqsBJHZXNJVBOJOCQ3708-22-40B41:38 :25 [facility] 2019-08-14 17:46:00 MGzefeanlvw82523884A LfX9/kVd+xdsC4 MKyXl31KLqHXLBa8ebO8o1zeL/agDVlEtd AmcI0a//nPAqgkk5834-45-15D08:46:00 [facility] ([facility])OB Antepartum Prog NoteREPORT#:[id number] REPORT STATUS: SignedDATE:08/14/19 TIME: 1745 PATIENT: ANJELICA NAVARRO UNIT #: [id number]#: [id number] [address] [birth year] AGE: 29 SEX: F ATTEND: Isaiah Chase [facility] AUTHOR: Isaiah Chase MD * ALL edits [...] oterwise at 35 weeks at 1746 RPT #:[id number] OF REPORT PRProgress Fmzr4124-28-61N14:46:00F.YNYM32321 007-0330AVAvailable for patient eidlULKTOKDDOWEQAP6332-54-70L48:47 :19 [facility] 2019-08-13 11:12:00 MAwiohcpyfe79949611F uoOvdxdbSfC9Qj ty9BeNnrk8VSNXXTZXjBAMZblziDVkRfo1 twOula2N0sBlTlK9232-46-60A70:12:00 [facility] ([facility])OB Antepartum Prog NoteREPORT#:[id number] REPORT STATUS: SignedDATE:08/13/19 TIME: 1112 PATIENT: ANJELICA NAVARRO UNIT #: [id number]#: [id number] [address] [birth year] AGE: 29 SEX: F ATTEND: Isaiah Chase [facility] AUTHOR: Vincent Rivera MD * ALL edits or amendments must [...] oterwise at 35 weeks at 1112 RPT #:[id number] OF REPORT PRProgress Whbr9482-79-43I07:12:00F.COAC10485 006-0224AVAvailable for patient upsfCVOMDGDTEAIRPQ8920-55-32C85:13 :08 [facility] 2019 12:38:00 NFxcgrocfpp375041202 HGisNpRy1JaL/z +5WuSsXKJJTvJZrc+CQEhrGokMetbX 6n+N62GTR97vEXh8214-45-59O16:38:00 [facility]OB Antepartum Prog NoteREPORT#:[id number] REPORT STATUS: SignedDATE:08/12/19 TIME: 1238 PATIENT: ANJELICA NAVARRO UNIT #: [id number]#: [id number] [address] [birth year] AGE: 29 SEX: F ATTEND: Isaiah Chase [facility] AUTHOR: Vincent Rivera MD * ALL edits or amendments must [...] oterwise at 35 weeks at 1239 RPT #:[id number] OF REPORT PRProgress Rrhd0217-24-17N91:38:00F.KXSG22312 005-0273AVAvailable for patient ywcqSBWZHBJJDBVNZO1468-38-47Z73:39 :40 [facility] 2019-08-11 21:53:00 ZKotbzzqsyw44636387I aF9zJYRvbQFQaL 3LXRFV+NRtGb2sJcZt2J4Bqmd507HRqXEU jHrnkJqSZowIDQ63285-67-51S06:53:00 [facility])OB Antepartum Prog NoteREPORT#:[id number] REPORT STATUS: SignedDATE:08/11/19 TIME: 2152 PATIENT: ANJELICA NAVARRO UNIT #: [id number]#: [id number] [address] [birth year] AGE: 28 SEX: F ATTEND: Isaiah Chase [facility] AUTHOR: Isaiah Chase MD * ALL edits or amendments must be made on the electronic/computer document * Subjective SubjectivePatient reports: Patient reports: Yes normal movement, No no complaints, No abdominal pain, No vaginal bleeding, No leaking fluid, No contractionsComments:seen around 8am Objective GeneralVS:Last Documented: Result Date Time B/P Mean 88.0 08/11 1957 B/P 121/71 08/11 1957 Pulse 98 08/11 1957 Temp 98.5 08/11 0826 Pulse Ox 100 08/11 0720 Resp 18 08/10 193 Vital Signs Date Temp Pulse Resp B/P [...] oterwise at 35 weeks at 2157 RPT #:[id number] OF REPORT PRProgress Qlen3905-33-84N86:53:00F.EROG45824 004-0447AVAvailable for patient azzaKWSDRWADWMHQFC6703-81-15V31:57 :43 [facility] 2019-08-10 20:47:00 SVjixpprjuo31425095w nkR9UdUddS8VSd 4TB10dIFYTgjJB1cNll3vmi27pN/Z1kSra +S4YwP0o3/wvHvt3099-07-48S55:47:00 [facility]OB Antepartum Prog NoteREPORT#:[id number] REPORT STATUS: SignedDATE:08/10/19 TIME: 2046 PATIENT: ANJELICA NAVARRO UNIT #: [id number]#: [id number] [address] [birth year] AGE: 28 SEX: F ATTEND: Isaiah Chase [facility] AUTHOR: Isaiah Chase MD * ALL edits or amendments must be made on the electronic/computer document * Subjective SubjectivePatient reports: Patient reports: Yes normal movement, No no complaints, No abdominal pain, No vaginal bleeding, No leaking fluid, No contractionsComments:seen around 6pm Objective GeneralVS:Last Documented: Result Date Time B/P Mean 90.0 08/10 1930 B/P 120/72 08/10 1930 Pulse 86 08/10 1930 Temp 98.5 08/10 0928 Resp 18 08/10 [...] FOR NON REASSURING TESTING at 2048 RPT #:[id number] OF REPORT PRProgress Fuap9752-25-34Q81:47:00F.EBDD52987 003-0428AVAvailable for patient zkqwLRXLUYWCSHYJNT3289-23-24M74:48 :29 [facility] 2019-08-09 20:17:00 VDjkmyziafs54105227n jwB9EVzxaTKtzN EyFGrHRgp4EStpSoQHoNObdb0ib0X/GfVJ 1uLrbC675rAfNiQ8075-25-70K81:17:00 [facility]OB Antepartum Prog NoteREPORT#:[id number] REPORT STATUS: SignedDATE:08/09/19 TIME: 2016 PATIENT: ANJELICA NAVARRO UNIT #: [id number]#: [id number] ROOM/BED: [facility]-ADOB: [birth year] AGE: 28 SEX: F ATTEND: Isaiah Chase AUTHOR: Isaiah [...] FOR NON REASSURING TESTING at 2017 RPT #:[id number] OF REPORT PRProgress Gnmt6285-20-11H72:17:00F.BSXD88896 002-0430AVAvailable for patient bnieXQKKJGSDJCWWOH4731-07-64R06:18 :11 [facility] 2019-08-08 13:06:00 NZvkaqclwzm45339684z 5kIwk88u0dRZcB HCA1BsKpl07CvZtanAwAJI2oHCeRbeB7xt IofaFwLXAFLiE6R9427-65-17S72:06:00 [facility])OB Antepartum Prog NoteREPORT#:[id number] REPORT STATUS: SignedDATE:08/08/19 TIME: 1306 PATIENT: ANJELICA NAVARRO UNIT #: [id number]#: [id number] [address] AGE: 28 SEX: F ATTEND: Isaiah Chase AUTHOR: Isaiah [...] FOR NON REASSURING TESTING at 1308 RPT #:[id number] OF REPORT PRProgress Wgei1601-49-04N46:06:00F.NYNB12119 001-0286AVAvailable for patient acjxAWDZFDTHFNZHPX3976-12-01G89:08 :45 [facility] 2019-08-07 20:27:00 WYirnyxnwqs46172512m PodJkCjuUdQqGc bpha4+fzUwQ514v9XqVb+KiPI0k1WM2fVu xRUBhd+CqbP3Ku/9114-59-63J62:27:00 [facility])OB Antepartum Prog NoteREPORT#:[id number] REPORT STATUS: SignedDATE:08/07/19 TIME: 2026 PATIENT: ANJELICA NAVARRO UNIT #: [id number]#: [id number] [address] [birth year] AGE: 28 SEX: F ATTEND: Isaiah Chase [facility] AUTHOR: Isaiah Chase MD * ALL edits [...] 33 0/7 WEEKS, SEVERE IUGR, BOREDERLINE LOW NACNY, ELEVATED SD ON UA DOPPLERSPlan: continue current managmnt, betamethasone admin, surveillance, DELIVER FOR NON REASSURING TESTING at 2027 RPT #:[id number] OF REPORT PRProgress Cfpe1980-23-93O80:27:00F.BOPM18280 930-0362AVAvailable for patient batzVKPJOLQWXVFSVG5854-26-11N50:28 :22 [facility] 2019-08-06 13:37:00 WHsleyqhnqs50900986x 8wefK+zwYl3ibq EXiytxUQAPJEqRoUnhbymmuJDib/vdu7Bn iohBIxg0Dcw9Znl1560-22-49L92:37:00 [facility]OB Antepartum Prog NoteREPORT#:[id number] REPORT STATUS: SignedDATE:08/06/19 TIME: 133 PATIENT: ANJELICA NAVARRO UNIT #: [id number]#: [id number] [address] [birth year] AGE: 28 SEX: F ATTEND: Isaiah Chase MD[facility] AUTHOR: Isaiah Chase MD * ALL edits or amendments must be made on the electronic/computer document * Subjective SubjectivePatient reports: Patient reports: Yes normal movement, No no complaints, No abdominal pain, No vaginal bleeding, No leaking fluid, No contractions Objective GeneralVS:Last Documented: Result Date Time Temp 97.8 08/06 0903 B/P Mean 73.0 08/06 0903 B/P 101/60 08/06 0903 Pulse 80 08/06 09 Pulse Ox 100 08/06 0229 Resp 18 [...] FOR NON REASSURING TESTING at 1338 RPT #:[id number] OF REPORT PRProgress Mznl8017-36-04L60:37:00F.FNRW33933 929-0249AVAvailable for patient rnouVGUIWUNNTAWIJD3782-26-44C25:39 :08 [facility] 2019-08-05 21:42:00 IVgbqffqtgh00982719x DlUAYh5khlz0x8 8Zffmu3YRguhDlHyfsVWUOezZAJ3ibb7lh CY7zUt6//IHdC007295-52-47V05:42:00 [facility]OB Antepartum Prog NoteREPORT#:[id number] REPORT STATUS: SignedDATE:08/05/19 TIME: 2141 PATIENT: ANJELICA NAVARRO UNIT #: [id number]#: [id number] [address] [birth year] AGE: 28 SEX: F ATTEND: Isaiah Chase AUTHOR: Isaiha Chase MD * ALL edits or amendments [...] FOR NON REASSURING TESTING at 2143 RPT #:[id number] OF REPORT PRProgress Gqxf1069-48-86P39:42:00F.EILC53316 928-0367AVAvailable for patient mbkaUOXWRGWYXKNEQZ6225-37-82R24:43 :39 [facility] 2019-08-04 19:35:00 RJsongbmchq64998093j 3SjolsK3cm7NMm yJA6hHaCNUgjYt/knSp5n1TtofxxFnDxZt w8D59HwBPXe4GMg5816-51-41I24:35:00 [facility])Clinical NoteREPORT#:[id number] REPORT STATUS: SignedDATE:08/04/19 TIME: 1934 PATIENT: ANJELICA NAVARRO UNIT #: [id number]#: [id number] ROOM/BED: [facility]-ADOB: [birth year] AGE: 28 SEX: F ATTEND: Isaiah Chase [facility] AUTHOR: Abi Bangura MD * ALL edits [...] check UA and cx at 1942 RPT #:[id number] OF REPORT CLClinical ruew7059-68-18Z13:35:00F.RDHA92704 927-8556AVAvailable for patient bzyhDEPZKUDGNODKKL5626-00-98A60:43 :00 [facility] 2019-08-04 17:09:00 EHlawluvpsd06509328B IU8SGkTMOxbUgL v/vxGWMOW1ZQIDriPEEuihwe3gkvXK32os qC0TOt2xtJswtuy9186-39-43K43:09:00 [facility]OB Antepartum Prog NoteREPORT#:[id number] REPORT STATUS: SignedDATE:08/04/19 TIME: 1709 PATIENT: ANJELICA NAVARRO UNIT #: [id number]#: [id number] [address] [birth year] AGE: 28 SEX: F ATTEND: Isaiah Chase [facility] AUTHOR: Isaiah Chase MD * ALL edits [...] FOR NON REASSURING TESTING at 1713 RPT #:[id number] OF REPORT PRProgress Dweg6726-60-38Z83:09:00F.YAEN22049 927-0407AVAvailable for patient qjmgERAHGBVTCUGDYS9650-39-76P38:13 :23 [facility] 2019-08-03 20:46:00 JUazyhkcvpi59665698B I6pMOTeDdYIwHp qYWuG3CGOD9TSOhEI6yqIKOqnUvn90H7AN G1O2K6Sqb6hVXJv3831-73-59R29:46:00 [facility])OB Admission / H PREPORT#:[id number] REPORT STATUS: SignedDATE:08/03/19 TIME: 2045 PATIENT: ANJELICA NAVARRO UNIT #: [id number]#: [id number] [address] [birth year] AGE: 28 SEX: F ATTEND: Isaiah Chase [facility] AUTHOR: Isaiah Chase MD * ALL edits or amendments must be made on the electronic/computer document * OB Admission H P HxChief complaint: SMALL BABYHPI:28 y old at 32 3/7 weeks who was admitted due to severe IUGR and worsening of elevated SD ratio at Dr Rodrigues's office. On 08/03 EFW was 1244 gms at 9% with eleavted SD. Yesterday, at Dr Rodrigues's office, EFW was down to 3% and [...] 34 weeks, inpatient management at 2114 RPT #:[id number] OF REPORT HPHistory and physical lxlgeklhrwx2128-94-19N34:46:00F.PD BG12462315-2984JMUbrzcilvc for patient jepiFAJGKHCSXELDCK2386-96-66Y18:14 :52 [facility] 2019-08-03 17:03:00 ZRigjvwtmct703617024 wn7KyzttUcRlEn 34b51zwODdegPE5/8ecZri/0Z8WnPAxfmF CRmhWiWcxZRZqAA9018-49-02V46:03:00 [facility])DT Consult NoteREPORT#:[id number] REPORT STATUS: SignedDATE:08/03/19 TIME: 1703 PATIENT: ANJELICA NAVARRO UNIT #: [id number]#: [id number] [address] [birth year] AGE: 28 SEX: F ATTEND: Isaiah Cahse [facility] AUTHOR: Ko Velasco DO * ALL edits or amendments must be made on the electronic/computer document * CONSULT NOTENote:Neonatology Consult Note I was called to the bedside to discuss the expectation and complications of prematurity at 32 weeks' gestation age. We discussed the events surrounding the delivery and that the resuscitation team would be present for delivery. The will be admitted to either the Advanced Care or Intermediate Care NICU, level of care determined if significant respiratory distress present. The complications of prematurity and treatments for a 32 week infant discussed with the family includes but not [...] mother. Signature:Ko Velasco DO at 1704 RPT #:[id number] OF REPORT ZNWarfwawbdsdj1321-80-38X42:03:00F .KRGU77511218-1163PXBnfsvantb for patient hmlvOHBURIEPJKWRKK2595-43-34W33:04 :35 [facility]
[2024-02-28] MEDS ORDERED: NA CHLORIDE 0.9% 1,000 ML ONE (19:59)
[2024-02-28 20:18] LABS: Absolute Basophils 0.1 K/uL (0-0.5); Absolute Eosinophils 0.1 K/uL (0-0.5); Absolute Lymphocytes (CBC) 2.8 K/uL (0.7-4.9); Absolute Monocytes 0.3 K/uL (0.1-1.3); Absolute Neutrophil 3.5 K/uL (1.8-8.0); Basophils % 0.8 % (0-1.3); Hematocrit 42.3 % (36.0-45.0); Lymphocytes % 41.4 % (15.3-44.8); MCH 31.8 pg (27.0-35.0); MCHC 33.2 g/dL (32.0-36.0); MCV 95.8 fL (80-100); MPV 8.6 fL (7.6-11.3); Neutrophils % 52.8 % (41.7-73.7); Nucleated Red Blood Cells % 0.1 % (0-0); Platelets 273 thou/uL (152-406); RBC Red Blood Cell Count 4.41 M/uL (3.86-4.86); Red Cell Distribution Width 12.7 % (12.1-15.2); Specific Gravity 1.022 (1.005-1.030)
--- NOTE | 2024-02-28 20:20 | RAD REPORT ---
EXAM DESCRIPTION: CT - Head Brain Wo Cont - 02/28/2024 8:13 pm CLINICAL HISTORY: HEADACHE Headache, drowsiness COMPARISON: Head Brain Wo Cont dated 06/20/2023 TECHNIQUE: All CT scans are performed using dose optimization technique as appropriate and may inclu de automated exposure control or mA/KV adjustment according to patient size. FINDINGS: No intracranial hemorrhage, hydrocephalus or extra-axial fluid collection.No areas of brai n edema or evidence of midline shift. The paranasal sinuses and mastoids are clear. The calvarium is intact. IMPRESSION: No acute intracranial abnormality.
[2024-02-28 20:23] LABS: Specific Gravity 1.022 (1.005-1.030); Urine Bacteria None Seen /HPF (<20); Urine Bilirubin NEGATIVE (Negative); Urine Blood Negative (Negative); Urine Clarity Turbid (Clear); Urine Color Light-Yellow (Yellow); Urine Culture Reflex Order NOT NEEDED; Urine Glucose NEGATIVE (Negative); Urine Ketones TRACE (Negative); Urine Micro Reflex YN NO BILL MICROSCOPIC; Urine Mucus Slight /HPF (None Seen); Urine Nitrite NEGATIVE (Negative); Urine Protein NEGATIVE (Negative); Urine RBC <5 /HPF (None Seen); Urine Urobilinogen 1+ (Normal); Urine WBC <5 /HPF (<5)
[2024-02-28 20:28] LABS: PT Prothrombin Time 12.3 SECONDS (9.5-12.5); Protime INR 1.12
[2024-02-28 20:31] LABS: Anion Gap 10.5 mEq/L (5.0-15.0); Potassium 3.5 mEq/L (3.5-5.1)
[2024-02-28] MEDS ORDERED: DIPHENHYDRAMINE 50 MG/ML VIAL ONE (21:37)
[2024-02-28] MEDS ORDERED: KETOROLAC 30 MG/ML INJ ONE (21:37)
[2024-02-28] MEDS ORDERED: METOCLOPRAMIDE 10 MG/2mL INJ ONE (21:38)
--- NOTE | 2024-02-28 21:56 | EDPHYS ---
Physician Documentation [facility] Name: Jade Murillo Age: 33 yrs Sex: Female : 1990 Arrival Date: 02/28/2024 Time: 19:26 Bed 11 Private MD: ED Physician Hiren Hatfield HPI: 02/27 20:00 This 33 yrs old Black Female presents to ER via Ambulatory with complaints of Headache. cp 20:00 The patient complains of pain to the top of head and forehead. The patient describes cp the headache as aching, constant. Onset: The symptoms/episode began/occurred 2 day(s) ago. 20:00 Associated signs and symptoms: Pertinent positives: nausea, Photophobia Pertinent cp negatives: altered mental status, fever, neck stiffness, paresthesias, sinus congestion, sinus tenderness, vomiting, weakness. Severity of symptoms: in the emergency department the pain is unchanged, despite home interventions. Headache History: The patient has had previous headaches and this one is similar to previous episodes. The patient has experienced similar episodes in the past, history of migraines. 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 - Infectious Disease History:: Denies. - Social history:: Smoking status: Patient denies any tobacco usage or history of. ROS: 20:05 Constitutional: Negative for body aches, chills, fever, cp 20:05 Eyes: Positive for photophobia, Negative for blurry vision, discharge, redness, cp 20:05 ENT: Negative for drainage from ear(s), ear pain, sore throat, difficulty swallowing, difficulty handling secretions, 20:05 Neck: Negative for pain with movement, pain at rest, stiffness, 20:05 Cardiovascular: Negative for chest pain, palpitations, 20:05 Respiratory: Negative for cough, shortness of breath, wheezing, 20:05 Abdomen/GI: Positive for nausea, Negative for abdominal pain, vomiting, diarrhea, constipation, 20:05 : Negative for urinary symptoms, 20:05 Neuro: Positive for headache, Negative for altered mental status, weakness, 20:05 All other systems are negative, Exam: 20:30 Head/Face: Normocephalic, atraumatic. cp 20:30 Constitutional: The patient appears in no acute distress, alert, awake, non-toxic, well developed, well nourished, uncomfortable, 20:30 Eyes: Periorbital structures: appear normal, Pupils: equal, round, and reactive to light and accomodation, Extraocular movements: intact throughout, Conjunctiva: normal, no exudate, no injection, Sclera: no appreciated abnormality, Lids and lashes: appear normal, bilaterally, 20:30 ENT: External ear(s): are unremarkable, Nose: is normal, Mouth: Lips: moist, Oral mucosa: pink and intact, moist, Posterior pharynx: is normal, airway is patent, no erythema, no exudate, 20:30 Neck: ROM/movement: is normal, is supple, without pain, no range of motions limitations, no meningismus, no nuchal rigidity, 20:30 Chest/axilla: Inspection: normal, 20:30 Cardiovascular: Rate: normal, Rhythm: regular, 20:30 Respiratory: the patient does not display signs of respiratory distress, Respirations: normal, no use of accessory muscles, no retractions, labored breathing, is not present, Breath sounds: are clear throughout, no decreased breath sounds, no stridor, no wheezing, 20:30 Abdomen/GI: Exam negative for discomfort, distension, guarding, Inspection: abdomen appears normal, 20:30 Neuro: Orientation: to person, place \T\ time. Mentation: is normal, Cerebellar function: is grossly normal, Motor: moves all fours, strength is normal, Sensation: is normal, Vital Signs: 19:50 BP 156 / 88; Pulse 88; Resp 18 S; Temp 98.1(TE); Pulse Ox 100% on R/A; Weight 74.84 kg as6 (R); Height 5 ft. 4 in. (R); Pain 10/10; 20:15 BP 106 / 93; Pulse 76; Resp 16; Pulse Ox 100% on R/A; me1 21:48 BP 127 / 90; Pulse 74; Resp 16; Pulse Ox 100% on R/A; me1 22:08 Pain 4/10; me1 22:08 Pain 4/10; me1 22:11 BP 120 / 74; Pulse 82; Resp 16; Pulse Ox 100% on R/A; me1 19:50 Body Mass Index 28.32 (74.84 kg, 162.56 cm) as6 19:50 Pain Scale: Adult as6 22:08 Pain Scale: Adult me1 22:08 Pain Scale: Adult me1 MDM: 19:45 Patient medically screened. 20:30 Differential diagnosis: hyponatremia, intracerebral hemorrhage, migraine, subarachnoid cp bleed, subdural hematoma, tension headache. 21:55 Data reviewed: vital signs, nurses notes, lab test result(s), radiologic studies, CT cp scan. 21:55 I considered the following discharge prescriptions or medication management in the emergency department Medications were administered in the Emergency Department. See MAR. Counseling: I had a detailed discussion with the patient and/or guardian regarding the historical points, exam findings, and any diagnostic results supporting the discharge/admit diagnosis, lab results, radiology results, the need for outpatient follow up, a neurologist, to return to the emergency department if symptoms worsen or persist or if there are any questions or concerns that arise at home. Response to treatment: the patient's symptoms have markedly improved after treatment, and as a result, I will discharge patient. 02/27 19:50 Order name: CBC with Diff; Complete Time: 20:32 cp 02/27 21:48 Interpretation: Reviewed. 02/27 19:50 Order name: BMP; Complete Time: 20:32 cp 02/27 21:48 Interpretation: Normal except: BUN 6; CRE 1.16; GFR 64. 02/27 19:50 Order name: PT-INR; Complete Time: 20:32 cp 02/27 21:49 Interpretation: Reviewed. 02/27 19:50 Order name: Urinalysis W/Microscopic; Complete Time: 20:32 cp 02/27 21:48 Interpretation: Normal except: UCLA Turbid; UKET TRACE; UUROB 1+. 02/27 19:50 Order name: Test, Urine; Complete Time: 20:32 cp 02/27 21:49 Interpretation: Reviewed. 02/27 19:50 Order name: CT Head Brain wo Cont; Complete Time: 20:32 cp 02/27 19:50 Order name: IV; Complete Time: 20:08 cp Administered Medications: 20:09 Drug: NS 0.9% IV 1000 ml IV at 1 bolus Per protocol; 1000 mL bolus Route: IV; Rate: 1 as6 bolus; Site: right antecubital; 22:08 Follow up: Response: No adverse reaction; Pain is decreased; IV Status: Completed me1 infusion; IV Intake: 1000ml 21:47 Drug: metoCLOPramide IVP 10 mg IVP once; over 1 to 2 minutes Route: IVP; Site: right me1 antecubital; 22:08 Follow up: Pain 4/10 Adult; Response: No adverse reaction; Pain is decreased me1 21:47 Drug: Ketorolac IVP 15 mg IVP once Route: IVP; Site: right antecubital; me1 22:08 Follow up: Pain 4/10 Adult; Response: No adverse reaction; Pain is decreased me1 22:08 Not Given (Patient Refused): [id number] mg IVP once me1 Disposition: 02/28 19:40 Co-signature as Attending Physician, Hiren Hatfield MD I reviewed the patient's care rn provided by the Advanced Practice Provider and agree with the diagnosis and treatment plan. Disposition Summary: 02/28/24 21:56 Discharge Ordered Notes: Location: Home cp Problem: new cp Symptoms: have improved cp Condition: Stable cp Diagnosis - Headache cp Followup: cp - With: Jono Whitney MD - When: 2 - 3 days - Reason: Recheck today's complaints Discharge Instructions: - Discharge Summary Sheet cp - Migraine Headache cp Forms: - Medication Reconciliation Form cp - Antibiotic Education cp - Prescription Opioid Use cp - Patient Portal Instructions cp - Leadership Thank You Letter cp Prescriptions: - Ibuprofen 800 mg Oral Tablet - take 1 tablet ORAL route every 8 hours As needed take with food; 30 tablet; cp Refills: 0, Product Selection Permitted - Reglan 10 mg Oral Tablet - take 1 tablet ORAL route every 6 hours take 30 minutes before meals and at cp bedtime; 20 tablet; Refills: 0, Product Selection Permitted Signatures: Dispatcher [employer] Hiren Garcia MD MD rn Page, Corey, PA PA cp Raul Enriquez RN RN as6 Valeri Acharya RN RN me1 Corrections: (The following items were deleted from the chart) 02/27 19:50 19:50 CBC+H.LAB.BRZ ordered. EDMS EDMS 19:50 19:50 BASIC METABOLIC PANEL+C.LAB.BRZ ordered. EDMS EDMS 19:50 19:50 PROTIME (+INR)+COAG.LAB.BRZ ordered. EDMS EDMS 19:50 19:50 Urinalysis W/Microscopic+U.LAB.BRZ ordered. EDMS EDMS 19:50 19:50 Test, Urine+UC.LAB.BRZ ordered. EDMS EDMS 19:50 19:50 Head Brain Wo Cont+CT.RAD.BRZ ordered. EDMS EDMS
--- NOTE | 2024-02-28 21:56 | ER ---
Nurse's Notes [facility] Name: Jade Murillo Age: 33 yrs Sex: Female : 1990 Arrival Date: 02/28/2024 Time: 19:26 Bed 11 Private MD: Diagnosis: Headache Presentation: 02/27 19:52 Chief complaint: Patient states: migraine headache since Wednesday. Coronavirus screen: as6 At this time, the client does not indicate any symptoms associated with coronavirus-19. Ebola Screen: No symptoms or risks identified at this time. Initial Sepsis Screen: Does the patient meet any 2 criteria? No. Patient's initial sepsis screen is negative. Does the patient have a suspected source of infection? No. Patient's initial sepsis screen is negative. Risk Assessment: Do you want to hurt yourself or someone else? Patient reports no desire to harm self or others. Onset of symptoms was February 26, 2024. 19:52 Acuity: KEVYN 3 as6 19:52 Method Of Arrival: Ambulatory as6 Triage Assessment: 19:50 General: Appears uncomfortable, Behavior is calm, cooperative, crying, quiet. Pain: as6 Complains of pain in head Quality of pain is described as aching. Neuro: Reports headache. 22:16 Headache History: The patient has had previous headaches and this one is similar to me1 previous episodes. Pain: Also complains of photophobia. 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 - Infectious Disease History:: Denies. - Social history:: Smoking status: Patient denies any tobacco usage or history of. Screenin:51 [facility] ED Fall Risk Assessment (Adult) History of falling in the last 3 months, me1 including since admission No falls in past 3 months (0 pts) Confusion or Disorientation No (0 pts) Intoxicated or Sedated No (0 pts) Impaired Gait No (0 pts) Mobility Assist Device Used No (0 pt) Altered Elimination No (0 pt) Score/Fall Risk Level 0 - 2 = Low Risk Maintained a safe environment, Provided non-skid footwear, Hourly rounding (assess needs \T\ fall precautionary measures) done. Abuse screen: Denies threats or abuse. Nutritional screening: No deficits noted. Tuberculosis screening: No symptoms or risk factors identified. Assessment: 21:51 General: Appears uncomfortable, well groomed, well developed, well nourished, Behavior me1 is calm, cooperative, appropriate for age, Reports migraine headache since Wednesday. Pain: Complains of pain in head Pain does not radiate. Pain currently is 10 out of 10 on a pain scale. Quality of pain is described as aching, Pain began 2-3 days ago. Is continuous. Neuro: Level of Consciousness is awake, alert, obeys commands, Oriented to person, place, time, situation, Appropriate for age. Cardiovascular: Capillary refill < 3 seconds Patient's skin is warm and dry. Respiratory: Airway is patent Respiratory effort is even, unlabored, Respiratory pattern is regular, symmetrical. GI: No signs and/or symptoms were reported involving the gastrointestinal system. : No signs and/or symptoms were reported regarding the genitourinary system. EENT: No signs and/or symptoms were reported regarding the EENT system. Derm: Skin is intact, is healthy with good turgor, Skin is pink, warm \T\ dry. Musculoskeletal: No signs and/or symptoms reported regarding the musculoskeletal system. 22:16 Reassessment: Patient and/or family updated on plan of care and expected duration. Pain me1 level reassessed. Patient is alert, oriented x 3, equal unlabored respirations, skin warm/dry/pink. Patient states feeling better. Patient states symptoms have improved. Vital Signs: 19:50 BP 156 / 88; Pulse 88; Resp 18 S; Temp 98.1(TE); Pulse Ox 100% on R/A; Weight 74.84 kg as6 (R); Height 5 ft. 4 in. (R); Pain 10/10; 20:15 BP 106 / 93; Pulse 76; Resp 16; Pulse Ox 100% on R/A; me1 21:48 BP 127 / 90; Pulse 74; Resp 16; Pulse Ox 100% on R/A; me1 22:08 Pain 4/10; me1 22:08 Pain 4/10; me1 22:11 BP 120 / 74; Pulse 82; Resp 16; Pulse Ox 100% on R/A; me1 19:50 Body Mass Index 28.32 (74.84 kg, 162.56 cm) as6 19:50 Pain Scale: Adult as6 22:08 Pain Scale: Adult me1 22:08 Pain Scale: Adult me1 ED Course: 19:30 Patient arrived in ED. mg5 19:45 William Rodriguez PA is PHCP. cp 19:45 Hiren Hatfield MD is Attending Physician. cp 19:48 Valeri Acharya, YONG is Primary Nurse. me1 19:50 Arm band placed on. as6 19:53 Triage completed. as6 20:08 Test, Urine Sent. as6 20:08 Urinalysis W/Microscopic Sent. as6 20:08 PT-INR Sent. as6 20:08 BMP Sent. as6 20:08 CBC with Diff Sent. as6 20:09 Inserted saline lock: 20 gauge in right antecubital area, using aseptic technique. as6 Blood collected. 20:15 CT Head Brain wo Cont In Process Unspecified. EDMS 21:51 Patient has correct armband on for positive identification. Bed in low position. Call me1 light in reach. Side rails up X 1. Provided Education on: POC. Verbalized understanding.. Client placed on continuous cardiac and pulse oximetry monitoring. NIBP monitoring applied. Pulse ox on. NIBP on. 21:51 No provider procedures requiring assistance completed. me1 21:55 Jono Whitney MD is Referral Physician. cp 22:17 IV discontinued, intact, bleeding controlled, No redness/swelling at site. Pressure me1 dressing applied. Administered Medications: 20:09 Drug: NS 0.9% IV 1000 ml IV at 1 bolus Per protocol; 1000 mL bolus Route: IV; Rate: 1 as6 bolus; Site: right antecubital; 22:08 Follow up: Response: No adverse reaction; Pain is decreased; IV Status: Completed me1 infusion; IV Intake: 1000ml 21:47 Drug: metoCLOPramide IVP 10 mg IVP once; over 1 to 2 minutes Route: IVP; Site: right me1 antecubital; 22:08 Follow up: Pain 4/10 Adult; Response: No adverse reaction; Pain is decreased me1 21:47 Drug: Ketorolac IVP 15 mg IVP once Route: IVP; Site: right antecubital; me1 22:08 Follow up: Pain /10 Adult; Response: No adverse reaction; Pain is decreased me1 22:08 Not Given (Patient Refused): [id number] mg IVP once me1 Medication: 21:51 VIS not applicable for this client. me1 Intake: 22:08 IV: 1000ml; Total: 1000ml. me1 Outcome: 21:56 Discharge ordered by . charmaine 22:17 Discharged to home me1 22:17 Condition: stable 22:17 Discharge instructions given to patient, Instructed on discharge instructions, follow up and referral plans. medication usage, Demonstrated understanding of instructions, follow-up care, medications, Prescriptions given X 2, 22:17 Patient left the ED. me1 Signatures: Dispatcher [employer] William Murphy PA PA cp Slawson, Ashby, RN RN as6 Valeri Acharya RN RN me1 Geni Armstrong mg5
[2024-02-28 22:37] VITALS: BP 120/74; TEMP 98.1; O2SAT 100
== END 2024-02-28 22:17 | disposition home or self-care (01) ==
LOC: ER 19:26
DX: R51.9 Headache, unspecified (principal)
CPT/HCPCS: 96361; 85025; 81001; 80048; 36415; 81025; 85610; 70450; 96375; 96374; 99284; J2765; J1200; J7030

== ENCOUNTER 2024-06-24 17:24 | Emergency (ER) | payer OTHER ==
[2024-06-24 19:02] LABS: SARS-CoV-2 Antigen CONTROL BLUE LINE VIS/BG OK; SARS-CoV-2 Antigen Rapid Res Negative (Negative)
--- NOTE | 2024-06-24 19:33 | ER ---
Nurse's Notes [facility] Name: Jade Murillo Age: 33 yrs Sex: Female : 1990 Arrival Date: 06/24/2024 Time: 17:24 Bed 10 Private MD: Diagnosis: Encounter for screening for other viral diseases Presentation: 06/24 17:54 Chief complaint: Patient states: exposed to Covid-19, reports mild headache and aa5 generalized weakness today. Coronavirus screen: headache. Ebola Screen: Patient denies travel to an Ebola-affected area in the 21 days before illness onset. Initial Sepsis Screen: Does the patient meet any 2 criteria? No. Patient's initial sepsis screen is negative. Does the patient have a suspected source of infection? No. Patient's initial sepsis screen is negative. Risk Assessment: Do you want to hurt yourself or someone else? Patient reports no desire to harm self or others. Onset of symptoms was June 24, 2024. 17:54 Acuity: KEVYN 4 aa5 17:54 Method Of Arrival: Ambulatory aa5 Historical: - Allergies: 17:55 No Known Allergies; aa5 - PMHx: 17:55 None; aa5 - PSHx: 17:55 section; Cholecystectomy; D\T\C; aa5 - Immunization history:: Adult Immunizations unknown. - Infectious Disease History:: Denies. - Social history:: Smoking status: Patient denies any tobacco usage or history of. Screenin:55 [facility] ED Fall Risk Assessment (Adult) History of falling in the last 3 months, aa5 including since admission No falls in past 3 months (0 pts) Confusion or Disorientation No (0 pts) Intoxicated or Sedated No (0 pts) Impaired Gait No (0 pts) Mobility Assist Device Used No (0 pt) Altered Elimination No (0 pt) Score/Fall Risk Level 0 - 2 = Low Risk Oriented to surroundings, Maintained a safe environment, Educated pt \T\ family on fall prevention, incl call for assistance when getting out of bed. Abuse screen: Denies threats or abuse. Nutritional screening: No deficits noted. Tuberculosis screening: No symptoms or risk factors identified. Assessment: 17:55 General: Appears comfortable, Behavior is calm, cooperative. Pain: Complains of pain in aa5 head Pain currently is 0 out of 10 on a pain scale. Neuro: Level of Consciousness is awake, alert, obeys commands, Oriented to person, place, time, situation, Pt reports headache resolved with OTC medication. Cardiovascular: Patient's skin is warm and dry. Respiratory: Airway is patent Respiratory effort is even, unlabored, Respiratory pattern is regular, symmetrical. GI: No signs and/or symptoms were reported involving the gastrointestinal system. : No signs and/or symptoms were reported regarding the genitourinary system. EENT: No signs and/or symptoms were reported regarding the EENT system. Derm: Skin is dry, Skin is normal, Skin temperature is warm. Musculoskeletal: Range of motion: intact in all extremities. 20:02 Reassessment: Patient appears in no apparent distress at this time. No changes from vc1 previously documented assessment. Patient and/or family updated on plan of care and expected duration. Pain level reassessed. Patient is alert, oriented x 3, equal unlabored respirations, skin warm/dry/pink. Vital Signs: 17:55 BP 133 / 89; Pulse 85; Resp 18 S; Temp 98.4(O); Pulse Ox 99% on R/A; Weight 65.77 kg aa5 (R); Height 5 ft. 4 in. (R); 20:02 BP 128 / 82; Pulse 80; Resp 18; Temp 98.5; Pulse Ox 99% ; vc1 17:55 Body Mass Index 24.89 (65.77 kg, 162.56 cm) aa5 ED Course: 17:30 Patient arrived in ED. im 17:50 William Rodriguez [facility]. cp 17:50 William Castaneda MD is Attending Physician. cp 17:54 Arm band placed on. aa5 17:54 Patient has correct armband on for positive identification. Bed in low position. Call aa5 light in reach. Side rails up X 1. 17:55 Triage completed. aa5 18:00 No provider procedures requiring assistance completed. Patient did not have IV access aa5 during this emergency room visit. 18:26 Tammie Garnett RN is Primary Nurse. aa5 18:39 SARS RAPID Sent. em1 18:39 Influenza Screen (a \T\ B) Sent. em1 19:00 Report given to YONG Layne. aa5 20:03 Provided Education on: Treat symptoms. vc1 Administered Medications: No medications were administered Medication: 18:00 VIS not applicable for this client. aa5 Outcome: 19:33 Discharge ordered by . charmaine 20:03 Discharged to home ambulatory, with family, vc1 20:03 Condition: good 20:03 Discharge instructions given to patient, Instructed on discharge instructions, follow up and referral plans. Demonstrated understanding of instructions, follow-up care, 20:03 Patient left the ED. vc1 Signatures: Paul Dwyer em1 Tammie Garnett, RN RN aa5 William Rodriguez PA PA Xi Valderrama RN RN vc1 Shaunna Ignacio
--- NOTE | 2024-06-24 19:33 | EDPHYS ---
Physician Documentation [facility] Name: Jade Murillo Age: 33 yrs Sex: Female : 1990 Arrival Date: 06/24/2024 Time: 17:24 Bed 10 Private MD: William Connolly HPI: 06/24 18:30 This 33 yrs old Black Female presents to ER via Ambulatory with complaints of Flu cp Symptoms. 18:30 Patient reports waking up today with body aches, headache, fever. cp Historical: - Allergies: 17:55 No Known Allergies; aa5 - PMHx: 17:55 None; aa5 - PSHx: 17:55 section; Cholecystectomy; D\T\C; aa5 - Immunization history:: Adult Immunizations unknown. - Infectious Disease History:: Denies. - Social history:: Smoking status: Patient denies any tobacco usage or history of. ROS: 18:35 Constitutional: Positive for body aches, Negative for fever, cp 18:35 Eyes: Negative for injury, pain, redness, and discharge, cp 18:35 ENT: Negative for drainage from ear(s), ear pain, sore throat, difficulty swallowing, difficulty handling secretions, 18:35 Respiratory: Negative for cough, shortness of breath, wheezing, 18:35 Abdomen/GI: Negative for abdominal pain, vomiting, diarrhea, 18:35 Neuro: Positive for headache, 18:35 All other systems are negative, Exam: 18:40 Constitutional: The patient appears in no acute distress, alert, awake, non-toxic, well cp developed, well nourished, 18:40 Head/Face: Normocephalic, atraumatic. cp 18:40 Eyes: Periorbital structures: appear normal, Conjunctiva: normal, no exudate, no injection, Lids and lashes: appear normal, bilaterally, 18:40 ENT: External ear(s): are unremarkable, Nose: is normal, Mouth: Lips: moist, Oral mucosa: pink and intact, moist, Posterior pharynx: Airway: no evidence of obstruction, patent, 18:40 Cardiovascular: Rate: normal, 18:40 Respiratory: the patient does not display signs of respiratory distress, Respirations: normal, no use of accessory muscles, no retractions, labored breathing, is not present, Breath sounds: are clear throughout, no decreased breath sounds, no stridor, no wheezing, 18:40 Abdomen/GI: Exam negative for discomfort, distension, guarding, Inspection: abdomen appears normal, 18:40 Skin: no rash present. Vital Signs: 17:55 BP 133 / 89; Pulse 85; Resp 18 S; Temp 98.4(O); Pulse Ox 99% on R/A; Weight 65.77 kg aa5 (R); Height 5 ft. 4 in. (R); 20:02 BP 128 / 82; Pulse 80; Resp 18; Temp 98.5; Pulse Ox 99% ; vc1 17:55 Body Mass Index 24.89 (65.77 kg, 162.56 cm) aa5 MDM: 17:50 Patient medically screened. cp 19:32 Data reviewed: vital signs, nurses notes, lab test result(s), and as a result, I will cp discharge patient. 19:32 Counseling: I had a detailed discussion with the patient and/or guardian regarding the cp historical points, exam findings, and any diagnostic results supporting the discharge/admit diagnosis, lab results, to return to the emergency department if symptoms worsen or persist or if there are any questions or concerns that arise at home. 06/24 18:26 Order name: Influenza Screen (a \T\ B) cp 06/24 18:26 Order name: SARS RAPID cp Administered Medications: No medications were administered Disposition Summary: 06/24/24 19:33 Discharge Ordered Notes: Location: Home cp Problem: new cp Symptoms: have improved cp Condition: Stable cp Diagnosis - Encounter for screening for other viral diseases cp Followup: cp - With: Private Physician - When: 1 - 2 days - Reason: Worsening of condition Discharge Instructions: - Discharge Summary Sheet cp - COVID-19: What Your Test Results Mean - [facility] (08/05/2021) cp Forms: - Medication Reconciliation Form cp - Antibiotic Education cp - Prescription Opioid Use cp - Patient Portal Instructions cp - Leadership Thank You Letter cp Signatures: Dispatcher [employer] Tammie Morton RN RN aa5 William Rodriguez PA PA cp
[2024-06-24 20:09] VITALS: O2SAT 99
[2024-06-24 20:10] VITALS: BP 128/82; TEMP 98.5
--- OUTSIDE RECORDS SUMMARY | 2024-06-27 11:43 | XMS REPORT | Continuity of Care Document ---
Author Name Unknown Address [address] [facility] [address] [place] [address] [facility] thconnect Address [address] [facility] [address] [place] [address] Care Team Providers Care Cut Out Stitcher Name Role Phone CLARICE SMITH Primary Care Physician PARKER Wallace Attending Clinician Unavailab ELOINA Swan Attending Clinician Unavailabl DEEPA Dillard Attending Clinician Unavailable SHAHIDA GAUTHIER Attending Clinician Unaailyn garibay LAB90 Attending Clinician Unavailable SHERICE ANDERSEN Attending Clinician Unavailable MD KAYA Attending Clinician Unavailab giovana Stanton Attending Clinician Unavailable CLARICE SMITH Attending Clinician Unavailab CLARICE Amaral Attending Clinician Unavailab RADHA Lopes Attending Clinician Unavailable JOSEPH DOWLING Attending Clinician Unavailable TETE GALAN [facility]ICAL Attending Dominickia zoraida Unavailable CEDRICK CARROLL Attending Clinician Unavaila ble 2, [facility] Attending Clinician Unavailable ANNA GUNTER Attending Clinician Unavailveronika ALFORD Attending Clinician Unavailab YARY Rondon Attending Clinician Unavailable AYAZ DURAND Attending Clinician Unavail able TORY RODRIGUES Attending Clinician Unavaila MIKE East Attending [...] Number Effective Date Expirati on Date Source [facility] LIANE OLIVEIRA FOCUS 9 [id number] 2023 00:00:00 [facility] [id number] [facility] [place] STAR [id number] 2022 00:00:00 [facility] (MEDICAID REPLACEMENT - HMO) [id number] 2022 00:00:00 2023 00:00:00 [place] [facility] [place] [id number] [place] [id number] 2019 00:00:00 RELIANCE STANDARD - MINI MEDICAL LIMITED PLAN - MULTIPLAN [id number] Problems Condition Name Condition Details Condition Category Status Onset Date Resolution Date Last Treatment Date Treating Clinician Comments Source DOROTHY (generaliz ed anxiety disorder) DOROTHY (generaliz ed anxiety disorder) Disease Active 05-10 00:00: 00 Tete Payneold - Externa l Insomnia Insomnia Disease Active 05-10 00:00: 00 Tete Payneold - Externa l Acute cough Acute cough Disease Active 12-07 00:00: 00 Tete Payneold - Externa l Intramural leiomyoma of uterus Intramural Leiomyoma of Uterus Problem Active 5 00:00: 00 [facility] Gonorrhea Gonorrhea Problem Active 2019-11 0-13 00:00: 00 [facility] Uses transderma l contracept ion Uses Transderma l Contracept ion Problem Active 08-05 00:00: 00 [facility] Gynecologi c examinatio n Gynecologi c Examinatio n Problem Active 08-05 00:00: 00 [facility] Venereal disease screening Venereal Disease Screening Problem Active 08-05 00:00: 00 [facility] Irregular intermenst rual bleeding Irregular Intermenst rual Bleeding Problem Active 16 00:00: 00 [facility] Initiation of transderma l contracept ion done Initiation of Transderma l Contracept ion Done Problem Active 16 00:00: 00 [facility] care Care Problem Active 2018-11 00:00: 00 [facility] Initiation of depot contracept ion done Initiation of Depot Contracept ion Done Problem Active 2018-11 00:00: 00 [facility] Contracept ion education Contracept ion Education Problem Active 2018-11 00:00: 00 [facility] Small for gestationa l age fetus Small for Gestationa l Age Fetus Problem Active 8 00:00: 00 [facility] Unintentio nal weight loss Unintentio nal Weight Loss Problem Active 5 00:00: 00 [facility] Severe hyperemesi s gravidarum Severe Hyperemesi s Gravidarum Problem Active 4- 00:00: 00 [facility] No known active problems No known active problems Disease [facility] Allergies, Adverse Reactions, Alerts Allergy Name Allergy Type Status Severity Reaction(s) Onset Date Inactive Date Treating Clinician Comments Source No Known Allergie s DA Active U 08-02 00:00: 00 [facility] NO KNOWN ALLERGIE S Drug Class Active [facility] Social History Social Habit Start Date Stop Date Quantity Comments Source Sexual orientation Patrice dominic Rico - External Alcoholic beverage intake 2024-05-24 00:00:00 2024-05-24 00:00:00 Lifetime non-drinker (finding) Tete Rico - External Alcohol intake 2024-01-25 00:00:00 2024-01-25 00:00:00 Lifetime non-drinker (finding) Tete Rico - External Tobacco use and exposure 2023-12-07 00:00:00 2023-12-07 00:00:00 Smokeless tobacco non-user Tete Rico - External History of Social function 2023-12-07 00:00:00 2023-12-07 00:00:00 Tete Rico - External Exposure to SARS-CoV-2 (event) 2022-11-10 00:00:00 2022-11-20 13:38:00 Not sure [facility] Sex assigned at 1990 00:00:00 1990 00:00:00 Tete Rico - External Smoking Status Start Date Stop Date Source Tobacco smoking consumption unknown Tete Rico - External Never smoked tobacco Tete Rico - External Medications Ordered Medication Name Filled Medication Name Start Date Stop Date Current Medication? Ordering Clinician Indication Dosage Frequency Signature (SIG) Comments Components Source Rizatriptan Benzoate (Maxalt) 10 MG oral Tablet 05-24 00:00: 00 Yes One at headache onset. May repeat one pill once after two hours if needed. Max 2 pills/24 hours.. Tete Seybold - Externa l Famotidine (PEPCID) 20 MG oral tablet 05-10 15:06: 30 05-10 00:00 :00 No 20mg Q.5D Take 1 tablet (20 mg total) by mouth 2 times daily. Tete vieyra Sertraline HCl 100 MG oral Tablet 05-10 00:00: 00 Yes [id number] 100mg QD Take 1 tablet (100 mg total) by mouth daily. Tete vieyra Trazodone HCl 50 MG oral Tablet 05-10 00:00: 00 Yes [id number] 50mg QD Take 1 tablet (50 mg total) by mouth nightly. Tete vieyra Cyanocobala min (B-12) 1000 MCG oral Tablet 05-10 00:00: 00 Yes [id number] 1{tbl} QD Take 1 tablet by mouth daily. Tete vieyra Ibuprofen (MOTRIN) 800 MG oral Tablet 03-04 00:00: 00 Yes TAKE ONE (1) TABLET(S) BY MOUTH EVERY EIGHT HOURS NEEDED FOR PAIN WITH FOOD. Tete vieyra Metoclopram hayden HCl 10 MG oral Tablet 03-04 00:00: 00 05-10 00:00 :00 No TAKE ONE (1) TABLET(S) BY MOUTH EVERY SIX HOURS (TAKE 30 MINUTES BEFORE MEALS AND AT BEDTIME). Tete vieyra Sumatriptan Succinate 50 MG oral Tablet 02-27 00:00: 00 05-10 00:00 :00 No [id number] 50mg Take 1 tablet (50 mg total) by mouth once as needed for migraine (May repeat in 2 hours if unresolved . Do not exceed 200 mg in 24 hours.). Tete vieyra Famotidine (PEPCID) 20 MG oral tablet 02-23 09:24: 05 Yes 20mg Take 1 tablet (20 mg total) by mouth 2 times daily. Tete vieyra Sertraline HCl 50 MG oral Tablet 02-23 00:00: 00 05-10 00:00 :00 No [id number] 50mg QD Take 1 tablet (50 mg total) by mouth daily. Tete vieyra Trazodone HCl 50 MG oral Tablet 02-23 00:00: 00 05-10 00:00 :00 No [id number] 50mg QD Take 1 tablet (50 mg total) by mouth nightly. Tete vieyra Twirla 120-30 MCG/24HR transdermal PATCH WEEKLY 01-31 00:00: 00 05-10 00:00 :00 No APPLY ONE (1) PATCH TO THE SKIN EVERY WEEK. Tete vieyra ACETAMINOPH EN-CAFF-BUT ALBITAL 50-325-40 MG oral Tablet 01-24 00:00: 00 Yes [id number] 1{tbl} Q4H Take 1 tablet by mouth every 4 hours as needed for pain. Tete vieyra Sertraline HCl 25 MG oral Tablet 01-24 00:00: 00 Yes [id number] 25mg Take 1 tablet (25 mg total) by mouth daily. Tete vieyra Diclofenac Sodium 75 MG oral Tablet Delayed Response 01-24 00:00: 00 05-10 00:00 :00 No [id number] 75mg Q.5D Take 1 tablet (75 mg total) by mouth 2 times daily. Tete vieyra Zafemy 150-35 MCG/24HR transdermal PATCH WEEKLY 2- 00:00: 00 05-10 00:00 :00 No 1{patch } Q1W Place 1 patch onto the skin once a week. Tete vieyra Famotidine (Pepcid) 20 MG oral tablet - 00:00: 00 Yes [id number] 20mg Take 1 tablet (20 mg total) by mouth 2 times daily. Tete vieyra Benzonatate (Tessalon Perles) 100 MG oral Capsule 1-30 00:00: 00 Yes [id number] 100mg [id number] 3D Take 1 capsule (100 mg total) by mouth 3 times daily as needed for cough. Tete Jacky vieyra methylPREDN ISolone 4 MG oral Tablet Therapy Pack 11-30 00:00: 00 12-07 00:00 :00 No [id number] 1{piter} Take 1 piter by mouth See Admin Instructio ns Use as directed. Tete Jacky vieyra Azithromyci n 250 MG oral Tablet 11-30 00:00: 00 12-07 00:00 :00 No [id number] Take 2 tablets by mouth on day 1 then 1 tablet by mouth daily for 4 days thereafter .. Tete Jacky vieyra EPINEPHrine 0.15 mg/0.3 mL injection 11-12 00:00: 00 Yes INJECT 0.3 ML(S) INTRAMUSCU LARLY NEEDED FOR ANAPHYLAXI S. [facility] medroxyprog esterone 10 mg tablet TAKE ONE (1) TABLET(S) BY MOUTH ONCE A DAY. medroxyprog esterone 10 mg tablet TAKE ONE (1) TABLET(S) BY MOUTH ONCE A DAY. No medroxypro gesterone 10 mg tablet TAKE ONE (1) TABLET(S) BY MOUTH ONCE A DAY. [facility] medroxyprog esterone 150 mg/mL intramuscul ar suspension Inject 1 mL every 3 months by intramuscul ar route. medroxyprog esterone 150 mg/mL intramuscul ar suspension Inject 1 mL every 3 months by intramuscul ar route. No 1mL medroxypro gesterone 150 mg/mL intramuscu lar suspension Inject 1 mL every 3 months by intramuscu lar route. [facility] cholecalcif jeremiah (vitamin D3) 1,250 mcg (50,000 unit) capsule TAKE ONE (1) CAPSULE(S) BY MOUTH ONCE WEEKLY. cholecalcif jeremiah (vitamin D3) 1,250 mcg (50,000 unit) capsule TAKE ONE (1) CAPSULE(S) BY MOUTH ONCE WEEKLY. No cholecalci ferol (vitamin D3) 1,250 mcg (50,000 unit) capsule TAKE ONE (1) CAPSULE(S) BY MOUTH ONCE WEEKLY. [facility] medroxyprog esterone 150 mg/mL intramuscul ar suspension Inject 1 mL every 3 months by intramuscul ar route. medroxyprog esterone 150 mg/mL intramuscul ar suspension Inject 1 mL every 3 months by intramuscul ar route. No 1mL medroxypro gesterone 150 mg/mL intramuscu lar suspension Inject 1 mL every 3 months by intramuscu lar route. [facility] medroxyprog esterone 150 mg/mL intramuscul ar syringe INJECT ONE (1) ML(S) INTO THE MUSCLE EVERY 3 MONTHS. medroxyprog esterone 150 mg/mL intramuscul ar syringe INJECT ONE (1) ML(S) INTO THE MUSCLE EVERY 3 MONTHS. No medroxypro gesterone 150 mg/mL intramuscu lar syringe INJECT ONE (1) ML(S) INTO THE MUSCLE EVERY 3 MONTHS. [facility] Provera 10 mg tablet Take 1 tablet every day by oral route for 14 days. Provera 10 mg tablet Take 1 tablet every day by oral route for 14 days. No 1 Q1D Provera 10 mg tablet Take 1 tablet every day by oral route for 14 days. [facility] cholecalcif jeremiah (vitamin D3) 1,250 mcg (50,000 unit) capsule TAKE ONE (1) CAPSULE(S) BY MOUTH ONCE WEEKLY. cholecalcif jeremiah (vitamin D3) 1,250 mcg (50,000 unit) capsule TAKE ONE (1) CAPSULE(S) BY MOUTH ONCE WEEKLY. No cholecalci ferol (vitamin D3) 1,250 mcg (50,000 unit) capsule TAKE ONE (1) CAPSULE(S) BY MOUTH ONCE WEEKLY. [facility] medroxyprog esterone 10 mg tablet TAKE ONE (1) TABLET(S) BY MOUTH ONCE A DAY FOR 14 DAYS. medroxyprog esterone 10 mg tablet TAKE ONE (1) TABLET(S) BY MOUTH ONCE A DAY FOR 14 DAYS. No medroxypro gesterone 10 mg tablet TAKE ONE (1) TABLET(S) BY MOUTH ONCE A DAY FOR 14 DAYS. [facility] medroxyprog esterone 150 mg/mL intramuscul ar suspension Inject 1 mL every 3 months by intramuscul ar route. medroxyprog esterone 150 mg/mL intramuscul ar suspension Inject 1 mL every 3 months by intramuscul ar route. No 1mL medroxypro gesterone 150 mg/mL intramuscu lar suspension Inject 1 mL every 3 months by intramuscu lar route. [facility] medroxyprog esterone 150 mg/mL intramuscul ar syringe INJECT ONE (1) ML(S) INTO THE MUSCLE EVERY 3 MONTHS. medroxyprog esterone 150 mg/mL intramuscul ar syringe INJECT ONE (1) ML(S) INTO THE MUSCLE EVERY 3 MONTHS. No medroxypro gesterone 150 mg/mL intramuscu lar syringe INJECT ONE (1) ML(S) INTO THE MUSCLE EVERY 3 MONTHS. [facility] methylpredn isolone 4 mg tablets in a dose pack TAKE BY MOUTH DIRECTED. methylpredn isolone 4 mg tablets in a dose pack TAKE BY MOUTH DIRECTED. No methylpred nisolone 4 mg tablets in a dose pack TAKE BY MOUTH DIRECTED. [facility] Xulane 150 mcg-35 mcg/24 hr transdermal patch Apply 1 patch every week by transdermal route. Xulane 150 mcg-35 mcg/24 hr transdermal patch Apply 1 patch every week by transdermal route. No 1patch( es) Q1W Xulane 150 mcg-35 mcg/24 hr transderma l patch Apply 1 patch every week by transderma l route. [facility] Vital Signs Vital Name Observation Time Observation Value Comments S ource Systolic blood pressure 2024-05-24 20:03:00 128 mm[Hg] Tete pastor ld - External Diastolic blood pressure 2024-05-24 20:03:00 78 mm[Hg] Tete Page ld - External Heart rate 2024-05-24 20:03:00 72 /min Laverne Rico - External Body temperature 2024-05-24 20:03:00 37.11 Kiley Tete Rico - External Respiratory rate 2024-05-24 20:03:00 16 /min Tete Rico - External Body height 2024-05-24 20:03:00 162.6 cm Massiel Rico - External Body weight 2024-05-24 20:03:00 67.586 kg Massiel Rico - External BMI 2024-05-24 20:03:00 25.58 kg/m2 Massiel Rico - External Respiratory rate 2024-05-10 19:58:00 18 /min Tete Seybold - External Body height 2024-05-10 19:58:00 162.6 cm Massiel ey Seybold - External Body weight 2024-05-10 19:58:00 69.4 kg Massiel ey Seybold - External BMI 2024-05-10 19:58:00 26.26 kg/m2 Massiel ey Seybold - External Oxygen saturation in Arterial blood by Pulse oximetry 2024-05-10 19:58:00 99 /min Tete Seybo ld - External Systolic blood pressure 2024-05-10 19:58:00 114 mm[Hg] Tete Seybo ld - External Diastolic blood pressure 2024-05-10 19:58:00 74 mm[Hg] Tete Seybo ld - External Heart rate 2024-05-10 19:58:00 76 /min Kelse y Seybold - External Body temperature 2024-05-10 19:58:00 37 Kiley Tete Seybold - External Systolic blood pressure 2024-02-24 14:20:00 124 mm[Hg] [...] (Body Mass Index) 2023-12-17 00:00:00 26.9 kg/m2 [facility] BP Diastolic 2023-12-17 00:00:00 77 mm[Hg] [facility] Body Weight 2023-12-17 00:00:00 156.7 [lb_av] [facility] Height 2023-12-17 00:00:00 64 [in_i] [facility] Systolic blood pressure 2023-12-07 20:19:00 [...] Body Weight 2023-10-21 00:00:00 156.3 [lb_av] [facility] Height 2023-10-21 00:00:00 64 [in_i] [facility] BP Systolic 2023-10-21 00:00:00 132 mm[Hg] [facility] BP Diastolic 2023-10-21 00:00:00 89 mm[Hg] [facility] BMI (Body Mass Index) 2023-10-21 00:00:00 26.8 kg/m2 [facility] Body Weight 2023-06-29 00:00:00 151 [lb_av] [facility] BP Systolic 2023-06-29 00:00:00 133 mm[Hg] [facility] Height 2023-06-29 00:00:00 64 [in_i] [facility] BMI (Body Mass Index) 2023-06-29 00:00:00 25.9 kg/m2 [facility] BP Diastolic 2023-06-29 00:00:00 88 mm[Hg] [facility] Systolic blood pressure 2022-11-20 19:55:00 128 mm[Hg] [facility] Diastolic blood pressure 2022-11-20 19:55:00 76 mm[Hg] [facility] Heart rate 2022-11-20 19:55:00 82 /min [facility] Body temperature 2022-11-20 19:55:00 36.67 Kiley [facility] Respiratory rate 2022-11-20 19:55:00 18 /min [facility] Body height 2022-11-20 19:55:00 162.6 cm [facility] Body weight 2022-11-20 19:55:00 72.576 kg [facility] BMI 2022-11-20 19:55:00 27.46 kg/m2 [facility] Oxygen saturation in Arterial blood by Pulse oximetry 2022-11-20 19:55:00 100 /min [facility] BP Diastolic 2022-06-22 00:00:00 82 mm[Hg] [facility] Height 2022-06-22 00:00:00 64 [in_i] [facility] BMI (Body Mass Index) 2022-06-22 00:00:00 26 kg/m2 [facility] BP Systolic 2022-06-22 00:00:00 131 mm[Hg] [facility] Body Weight 2022-06-22 00:00:00 151.4 [lb_av] [facility] BP Diastolic 2022-05-08 00:00:00 92 mm[Hg] [facility] Height 2022-05-08 00:00:00 64 [in_i] [facility] BMI (Body Mass Index) 2022-05-08 00:00:00 25.9 kg/m2 [facility] BP Systolic 2022-05-08 00:00:00 142 mm[Hg] [facility] Body Weight 2022-05-08 00:00:00 151 [lb_av] [facility] Height 2022-03-18 00:00:00 64 [in_i] [facility] BP Diastolic 2021-12-18 00:00:00 88 mm[Hg] [facility] Height 2021-12-18 00:00:00 64 [in_i] [facility] BMI (Body Mass Index) 2021-12-18 00:00:00 25.5 kg/m2 [facility] BP Systolic 2021-12-18 00:00:00 138 mm[Hg] [facility] Body Weight 2021-12-18 00:00:00 148.4 [lb_av] [facility] Height 2021-09-17 00:00:00 64 [in_i] [facility] BMI (Body Mass Index) 2021-09-17 00:00:00 23.2 kg/m2 [facility] Body Weight 2021-09-17 00:00:00 135 [lb_av] [facility] BP Diastolic 2021-09-02 00:00:00 75 mm[Hg] [facility] Height 2021-09-02 00:00:00 64 [in_i] [facility] BMI (Body Mass Index) 2021-09-02 00:00:00 23 kg/m2 [facility] BP Systolic 2021-09-02 00:00:00 119 mm[Hg] [facility] Body Weight 2021-09-02 00:00:00 134.2 [lb_av] [facility] BP Diastolic 2021-08-19 00:00:00 87 mm[Hg] [facility] Height 2021-08-19 00:00:00 64 [in_i] [facility] BMI (Body Mass Index) 2021-08-19 00:00:00 22.6 kg/m2 [facility] BP Systolic 2021-08-19 00:00:00 124 mm[Hg] [facility] Body Weight 2021-08-19 00:00:00 131.9 [lb_av] [facility] BP Diastolic 2021-04-11 00:00:00 81 mm[Hg] [facility] Height 2021-04-11 00:00:00 64 [in_i] [facility] BMI (Body Mass Index) 2021-04-11 00:00:00 21.1 kg/m2 [facility] BP Systolic 2021-04-11 00:00:00 144 mm[Hg] [facility] Body Weight 2021-04-11 00:00:00 122.9 [lb_av] [facility] Height 2021-03-24 00:00:00 64 [in_i] [facility] BMI (Body Mass Index) 2021-03-24 00:00:00 20.9 kg/m2 [facility] BP Systolic 2021-03-24 00:00:00 127 mm[Hg] [facility] Body Weight 2021-03-24 00:00:00 122 [lb_av] [facility] BP Diastolic 2021-03-24 00:00:00 83 mm[Hg] [facility] BP Diastolic 2020-09-24 00:00:00 83 mm[Hg] [facility] Height 2020-09-24 00:00:00 64 [in_i] [facility] BMI (Body Mass Index) 2020-09-24 00:00:00 22.7 kg/m2 [facility] BP Systolic 2020-09-24 00:00:00 120 mm[Hg] [facility] Body Weight 2020-09-24 00:00:00 132.4 [lb_av] [facility] BP Diastolic 2020-08-20 00:00:00 70 mm[Hg] [facility] Height 2020-08-20 00:00:00 64 [in_i] [facility] BMI (Body Mass Index) 2020-08-20 00:00:00 22.6 kg/m2 [facility] BP Systolic 2020-08-20 00:00:00 131 mm[Hg] [facility] Body Weight 2020-08-20 00:00:00 131.5 [lb_av] [facility] BP Diastolic 2020-08-05 00:00:00 80 mm[Hg] [facility] Height 2020-08-05 00:00:00 64 [in_i] [facility] BMI (Body Mass Index) 2020-08-05 00:00:00 22.3 kg/m2 [facility] BP Systolic 2020-08-05 00:00:00 130 mm[Hg] [facility] Body Weight 2020-08-05 00:00:00 130 [lb_av] [facility] BP Diastolic 2020-04-23 00:00:00 82 mm[Hg] [facility] Height 2020-04-23 00:00:00 64 [in_i] [facility] BMI (Body Mass Index) 2020-04-23 00:00:00 23 kg/m2 [facility] BP Systolic 2020-04-23 00:00:00 128 mm[Hg] [facility] Body Weight 2020-04-23 00:00:00 134 [lb_av] [facility] BP Diastolic 2020-01-02 00:00:00 73 mm[Hg] [facility] Height 2020-01-02 00:00:00 64 [in_i] [facility] BMI (Body Mass Index) 2020-01-02 00:00:00 21.8 kg/m2 [facility] BP Systolic 2020-01-02 00:00:00 114 mm[Hg] [facility] Body Weight 2020-01-02 00:00:00 127.1 [lb_av] [facility] BP Diastolic 2019-09-19 00:00:00 78 mm[Hg] [facility] Height 2019-09-19 00:00:00 64 [in_i] [facility] BMI (Body Mass Index) 2019-09-19 00:00:00 21.8 kg/m2 [facility] BP Systolic 2019-09-19 00:00:00 122 mm[Hg] [facility] Body Weight 2019-09-19 00:00:00 127.2 [lb_av] [facility] BP Diastolic 2019-08-02 00:00:00 77 mm[Hg] [facility] Height 2019-08-02 00:00:00 64 [in_i] [facility] BMI (Body Mass Index) 2019-08-02 00:00:00 22 kg/m2 [facility] BP Systolic 2019-08-02 00:00:00 116 mm[Hg] [facility] Body Weight 2019-08-02 00:00:00 128 [lb_av] [facility] BP Diastolic 2019-07-19 00:00:00 76 mm[Hg] [facility] Height 2019-07-19 00:00:00 64 [in_i] [facility] BMI (Body Mass Index) 2019-07-19 00:00:00 21.8 kg/m2 [facility] BP Systolic 2019-07-19 00:00:00 117 mm[Hg] [facility] Body Weight 2019-07-19 00:00:00 127 [lb_av] [facility] BP Diastolic 2019-07-05 00:00:00 63 mm[Hg] [facility] Height 2019-07-05 00:00:00 64 [in_i] [facility] BMI (Body Mass Index) 2019-07-05 00:00:00 21.9 kg/m2 [facility] BP Systolic 2019-07-05 00:00:00 103 mm[Hg] [facility] Body Weight 2019-07-05 00:00:00 127.5 [lb_av] [facility] BMI (Body Mass Index) 2019-06-05 00:00:00 20.9 kg/m2 [facility] BP Systolic 2019-06-05 00:00:00 106 mm[Hg] [facility] Body Weight 2019-06-05 00:00:00 122 [lb_av] [facility] BP Diastolic 2019-06-05 00:00:00 76 mm[Hg] [facility] Height 2019-06-05 00:00:00 64 [in_i] [facility] BP Diastolic 2019-05-08 00:00:00 69 mm[Hg] [facility] Height 2019-05-08 00:00:00 64 [in_i] [facility] BMI (Body Mass Index) 2019-05-08 00:00:00 20.5 kg/m2 [facility] BP Systolic 2019-05-08 00:00:00 107 mm[Hg] [facility] Body Weight 2019-05-08 00:00:00 119.4 [lb_av] [facility] BP Diastolic 2019-04-10 00:00:00 81 mm[Hg] [facility] Height 2019-04-10 00:00:00 64 [in_i] [facility] BMI (Body Mass Index) 2019-04-10 00:00:00 19.3 kg/m2 [facility] BP Systolic 2019-04-10 00:00:00 119 mm[Hg] [facility] Body Weight 2019-04-10 00:00:00 112.5 [lb_av] [facility] BP Diastolic 2019-04-04 00:00:00 85 mm[Hg] [facility] Height 2019-04-04 00:00:00 64 [in_i] [facility] BMI (Body Mass Index) 2019-04-04 00:00:00 19.4 kg/m2 [facility] BP Systolic 2019-04-04 00:00:00 132 mm[Hg] [facility] Body Weight 2019-04-04 00:00:00 113 [lb_av] [facility] BP Diastolic 2019-03-14 00:00:00 87 mm[Hg] [facility] Height 2019-03-14 00:00:00 64 [in_i] [facility] BMI (Body Mass Index) 2019-03-14 00:00:00 19.1 kg/m2 [facility] BP Systolic 2019-03-14 00:00:00 124 mm[Hg] [facility] Body Weight 2019-03-14 00:00:00 111 [lb_av] [facility] BP Diastolic 2019-02-14 00:00:00 97 mm[Hg] [facility] Height 2019-02-14 00:00:00 64 [in_i] [facility] BMI (Body Mass Index) 2019-02-14 00:00:00 20.6 kg/m2 [facility] BP Systolic 2019-02-14 00:00:00 135 mm[Hg] [facility] Body Weight 2019-02-14 00:00:00 120 [lb_av] [facility] BP Diastolic 2019-02-07 00:00:00 83 mm[Hg] [facility] Height 2019-02-07 00:00:00 64 [in_i] [facility] BMI (Body Mass Index) 2019-02-07 00:00:00 22 kg/m2 [facility] BP Systolic 2019-02-07 00:00:00 124 mm[Hg] [facility] Body Weight 2019-02-07 00:00:00 128.4 [lb_av] [facility] [facility] BP Diastolic 2019-01-26 00:00:00 84 mm[Hg] [facility] Height 2019-01-26 00:00:00 64 [in_i] [facility] BMI (Body Mass Index) 2019-01-26 00:00:00 22.4 kg/m2 [facility] BP Systolic 2019-01-26 00:00:00 128 mm[Hg] [facility] Body Weight 2019-01-26 00:00:00 130.4 [lb_av] [facility] BP Diastolic 2019-01-03 00:00:00 76 mm[Hg] [facility] Height 2019-01-03 00:00:00 64 [in_i] [facility] BMI (Body Mass Index) 2019-01-03 00:00:00 22.4 kg/m2 [facility] BP Systolic 2019-01-03 00:00:00 118 mm[Hg] [facility] Body Weight 2019-01-03 00:00:00 130.3 [lb_av] [facility] Procedures Procedure Date / Time Performed Performing Clinician Source FREE T4 2022-11-20 20:48:00 [facility] THYROID STIMULATING HORMONE 2022-11-20 20:48:00 [facility] COMP. METABOLIC PANEL (38008) 2022-11-20 20:48:00 [facility] LIPID PANEL (07560)(TOTAL CHOLESTEROL, TRIGLYCERIDES, HDL) 2022-11-20 20:48:00 [facility] CBC WITH DIFF 2022-11-20 20:48:00 [facility] GLYCOSYLATED HEMOGLOBIN (A1C) 2022-11-20 20:48:00 [facility] FREE T3 2022-11-20 20:48:00 [facility] US, transvaginal 2021-03-24 00:00:00 [facility], hysterosalpingogram 2019-01-03 00:00:00 [facility] Cholecystectomy 2018-11-08 00:00:00 [facility] Dilation and Curettage 2014-09-08 00:00:00 [facility] Plan of Care Planned Activity Planned Date Details Comments Source Diagnostic Test Pending 2023-12-17 00:00:00 urinalysis, dipstick [code = urinalysis, dipstick] [facility] Diagnostic Test Pending 2023-12-17 00:00:00 test, urine [code = test, urine] [facility] Diagnostic Test Pending 2023-12-17 00:00:00 RPR (rapid plasma reagin), serum [code = RPR (rapid plasma reagin), serum] [facility] Diagnostic Test Pending 2023-12-17 00:00:00 HIV (1+2) Ab screen, serum [code = HIV (1+2) Ab screen, serum] [facility] Diagnostic Test Pending 2023-12-17 00:00:00 HBsAg (hepatitis B surface Ag), serum [code = HBsAg (hepatitis B surface Ag), serum] [facility] Diagnostic Test Pending 2023-12-17 00:00:00 STI panel [code = STI panel] [facility] Future Appointment 2024-07-03 09:00:00 [address]; [address], [place] [address] [facility] Instructions [facility] Encounters Start Date/Time End Date/Time Encounter Type Admission Type Attending [facility] Care Department Encounter ID Source 2024-07-05 15:00:00 2024-07-05 15:00:00 Outpatient PARKER BENNETT TETE CRUM [id number] [facility] 2024-06-20 10:00:00 2024-06-20 10:00:00 Outpatient PARKER BENNETT TETE CRUM [id number] [facility] 2024-05-25 10:30:00 2024-05-25 10:30:00 Outpatient MARQUEZ ELOINA TETE CRUM [id number] [facility] 2024-05-24 14:45:00 2024-05-24 14:45:00 Outpatient DANNY ZAYASE TETE CRUM [id number] [facility] 2024-05-18 00:00:00 2024-05-18 00:00:00 Outpatient DEEPA BENAVIDES [id number] [facility] 2024-05-13 00:00:00 2024-05-13 00:00:00 Outpatient SHAHIDA GAUTHIER [id number] [facility] 2024-05-13 00:00:00 2024-05-13 00:00:00 Outpatient DEEPA BENAVIDES [id number] [facility] 2024-05-12 14:55:00 2024-05-12 14:55:00 Outpatient CHRISSY CRUM [id number] [facility] 2024-05-12 00:00:00 2024-05-12 00:00:00 Outpatient DEEPA BENAVIDES [id number] [facility] 2024-05-10 15:45:00 2024-05-10 15:45:00 Outpatient CHRISSY CRUM [id number] [facility] 2024-05-10 15:00:00 2024-05-10 15:00:00 [facility] [id number] [facility] 2024-04-27 09:00:00 2024-04-27 09:00:00 Outpatient DEEPA BENAVIDES [id number] [facility] 2024-04-26 15:00:00 2024-04-26 15:00:00 Outpatient KENNEDY DEEPA TETE CRUM [id number] [facility] 2024-03-29 11:00:00 2024-03-29 11:00:00 Outpatient KENNEDY DEEPA CRUM [id number] [facility] Jacky 2024-03-10 10:15:00 2024-03-10 10:15:00 Outpatient SHERICE ANDERSEN TETE CRUM [id number] [facility] 2024-02-29 00:00:00 2024-02-29 00:00:00 Outpatient MD TETE REINA [id number] [facility] 2024-02-28 00:00:00 2024-02-28 00:00:00 Outpatient KENNEDY DEEPA CRUM [id number] [facility] 2024-02-25 00:00:00 2024-02-25 00:00:00 Outpatient KENNEDY DEEPA TETE CRUM [id number] [facility] 2024-02-24 10:15:00 2024-02-24 10:15:00 Outpatient LAB90 TETE CRUM [id number] [facility] 2024-02-24 09:30:00 2024-02-24 09:30:00 Outpatient JELANIYas DEEPA CRUM [id number] [facility] 2024-02-09 00:00:00 2024-02-09 00:00:00 Outpatient Rutledge_L MMG [facility] [id number] [facility] 2024-01-26 08:15:00 2024-01-26 08:15:00 Outpatient LAB90 TETE CRUM [id number] [facility] ybel[facility]ira 2024-01-25 14:15:00 2024-01-25 14:15:00 Outpatient LAB90 TETE CRUM [id number] [facility] ybelvira 2024-01-25 13:30:00 2024-01-25 13:30:00 Outpatient KENNEDY DEEPA CRUM [id number] [facility] 2024-01-11 13:30:00 2024-01-11 13:30:00 Outpatient R CLARICE SMITH [facility] [id number] [facility] 2024-01-07 00:00:00 2024-01-07 00:00:00 Outpatient Rutledge_L MMG [facility] [id number] [facility] 2023-12-28 00:00:00 2023-12-28 00:00:00 Outpatient Rutledge_L MMG MM[facility] [id number] [facility] 2023-12-17 11:19:00 2023-12-17 11:19:00 Outpatient RADHA MCHUGH [facility] [id number] [facility] 2023-12-17 00:00:00 2023-12-17 00:00:00 Outpatient Rutledge_L MMG MMG [id number] [facility] 2023-12-17 00:00:00 2023-12-17 00:00:00 LORENA SalmeronP-BC: [address], [address], [place] [address] , Ph. [phone] MM[facility] [id number] [facility] 2023-12-07 14:30:00 2023-12-07 14:30:00 Outpatient JOSEPH DOWLING [id number] [facility] 2023-12-06 00:00:00 2023-12-06 00:00:00 Outpatient TETE GALAN [id number] [facility] 2023-11-30 11:00:00 2023-11-30 11:00:00 Outpatient CEDRICK CARROLL [id number] [facility] 2023-11-23 09:30:00 2023-11-23 09:30:00 Outpatient CLARICE MACKEY [facility] [id number] [facility] 2023-10-21 00:00:00 2023-10-21 00:00:00 Anna Gunter MD: [address], [address], [place] [address] , Ph. [phone] MM[facility] - OBGYN [id number] [facility] 2023-10-20 00:00:00 2023-10-20 00:00:00 Outpatient Rutledge_L MMG MMG [id number] [facility] 2023-10-20 00:00:00 2023-10-20 00:00:00 Outpatient Rutledge_L MMG MMG [id number] [facility] 2023-10-13 09:07:18 2023-10-13 09:07:18 Outpatient SFA SFA [id number] Jose G Renteria 2023-07-22 00:00:00 2023-07-22 00:00:00 Outpatient Rutledge_L MMG MMG [id number] [facility] 2023-07-22 00:00:00 2023-07-22 00:00:00 Outpatient Rutledge_L MMG MMG [id number] [facility] 2023-06-29 09:08:00 2023-06-29 09:08:00 Outpatient LISA MCHUGHGHAN [facility] [id number] [facility] 2023-06-29 00:00:00 2023-06-29 00:00:00 Outpatient Rutledge_L MMG MMG [id number] [facility] 2023-06-29 00:00:00 2023-06-29 00:00:00 ALEXANDER Salmeron-: [address], [address], [place] [address] , Ph. [phone] [facility] [id number] [facility] 2022-11-20 15:30:00 2022-11-20 15:45:00 Reservations Manager Visit 2, [facility] [id number] [facility] 2022-11-20 14:00:00 2022-11-20 14:34:54 Outpatient R CLARICE SMITH [facility]GECH[facility]WU [facility] [id number] [facility] 2022-11-20 14:00:00 2022-11-20 14:34:54 Office Visit Clarice Smith [facility] [id number] [facility] 2022-10-23 00:00:00 2022-10-23 00:00:00 Outpatient Rutledge_L MMG MMG [id number] [facility] 2022-10-23 00:00:00 2022-10-23 00:00:00 Outpatient Rutledge_L MMG MMG [id number] [facility] 2022-10-23 00:00:00 2022-10-23 00:00:00 Outpatient Rutledge_L MMG MMG [id number] [facility] 2022-10-01 00:00:00 2022-10-01 00:00:00 Outpatient Rutledge_L MMG MMG [id number] [facility] 2022-09-25 00:00:00 2022-09-25 00:00:00 Outpatient Rutledge_L MMG MMG [id number] [facility] 2022-09-01 00:00:00 2022-09-01 00:00:00 Outpatient Rutledge_L MMG MMG [id number] [facility] 2022-08-05 00:00:00 2022-08-05 00:00:00 Outpatient Rutledge_L MMG MMG [id number] [facility] 2022-06-23 00:00:00 2022-06-23 00:00:00 Outpatient Rutledge_L MMG MMG 16 [facility] 2022-06-22 00:00:00 2022-06-22 00:00:00 Tory Rodrigues MD: [address] [facility], [place] [address] , Ph. [phone] Rutledge_L MMG [facility] 0815 [facility] 2022-06-16 00:00:00 2022-06-16 00:00:00 Outpatient Rutledge_L MMG MMG [id number] [facility] 2022-05-08 10:22:00 2022-05-08 10:22:00 Outpatient ANNA ORNELAS [facility] [id number] [facility] 2022-05-08 00:00:00 2022-05-08 00:00:00 Anna Gunter MD: [address] [place] [address] , Ph. [phone] Rutledge_L MMG [facility] 0701 [facility] 2022-03-18 00:00:00 2022-03-18 00:00:00 Anna Gunter MD: [address], [place] [address] , Ph. [phone] Rutledge_L MMG [facility] 0511 [facility] 2021-12-23 09:19:00 2021-12-23 09:19:00 Outpatient Rutledge_L MMG MMG [id number] [facility] 2021-12-18 00:00:00 2021-12-18 00:00:00 GERDA Salmeron: [address], [place] [address] , Ph. [phone] MM[facility] 0210 [facility] 2021-12-17 04:22:00 2021-12-17 04:22:00 Outpatient Rutledge_L MMG MMG [id number] [facility] 2021-10-10 05:04:00 2021-10-10 05:04:00 Outpatient FLOR TEETEE MILAN [facility] [id number] [facility] 2021-09-17 00:00:00 2021-09-17 00:00:00 LORENA SalmeronP-BC: [address], [place] [address] , Ph. [phone] Rutledge_L MMG [facility] 1110 [facility] 2021-09-02 00:00:00 2021-09-02 00:00:00 GERDA SalmeronBC: [address], [place] [address] , Ph. [phone] Rutledge_L MMG [facility] 1025 [facility] 2021-08-27 11:50:00 2021-08-27 11:50:00 Outpatient Rutledge_L MMG G 1020 [facility] 2021-08-19 14:04:00 2021-08-19 14:04:00 Outpatient GRETCHEN STAPLES RADHA [facility] [id number] [facility] 2021-08-19 00:00:00 2021-08-19 00:00:00 LORENA SalmeronPTiffanieBC: [address], [place] [address] , Ph. [phone] Rutledge_L MMG [facility] 101 [facility] 2021-04-22 01:40:00 2021-04-22 01:40:00 Outpatient Rutledge_L MMG MMG [id number] [facility] 2021-04-14 14:56:00 2021-04-14 14:56:00 Outpatient ANNA ORNELAS [facility] [id number] [facility] 2021-04-11 00:00:00 2021-04-11 00:00:00 Anna Gunter MD: [address] [place] [address] , Ph. [phone] Rutledge_L MMG [facility] 0604 [facility] 2021-03-24 00:00:00 2021-03-24 00:00:00 Anna Gunter MD: [address] [address] , Ph. [phone] Rutledge_L MMG [facility] 0517 [facility] 2020-12-02 12:46:00 2020-12-02 12:46:00 Outpatient Rutledge[facility]L MMG [facility] [id number] [facility] 2020-11-27 03:56:00 2020-11-27 03:56:00 Outpatient Rutledge_L MMG MMG [id number] [facility] 2020-11-25 02:38:00 2020-11-25 02:38:00 Outpatient Rutledge_L MMG MMG [id number] [facility] 2020-09-25 02:21:00 2020-09-25 02:21:00 Outpatient Rutledge_L MMG MMG [id number] [facility] 2020-09-24 00:00:00 2020-09-24 00:00:00 Tory Rodrigues MD: [address] [address] , Ph. [phone] Rutledge_L MMG [facility] 1117 [facility] 2020-09-14 12:28:00 2020-09-14 12:28:00 Outpatient Rutledge_L MMG MMG [id number] [facility] 2020-08-20 00:00:00 2020-08-20 00:00:00 Yary Marinelli, NP: [address] [place] [address] , Ph. [phone] Rutledge[facility]L [facility] 1013 [facility] 2020-08-05 09:06:00 2020-08-05 09:06:00 Outpatient GRETCHEN CAZARESISYARY [facility] [id number] [facility] 2020-08-05 00:00:00 2020-08-05 00:00:00 Yary Marinelli, NP: [address] [address] , Ph. [phone] Rutledge_L MMG [facility] 0928 [facility] 2020-05-04 11:32:00 2020-05-04 11:32:00 Outpatient Rutledge_L MMG [facility] [id number] [facility] 2020-04-23 00:00:00 2020-04-23 00:00:00 Yary Marinelli, NP: [address] [address] , Ph. [phone] Rutledge_L [facility] 0616 [facility] 2020-02-12 05:07:00 2020-02-12 05:07:00 Outpatient Rutledge_L MMG MMG [id number] [facility] 2020-01-15 10:29:00 2020-01-15 10:29:00 Outpatient Rutledge_L MMG [facility] [id number] [facility] 2020-01-05 09:41:00 2020-01-05 09:41:00 Outpatient Rutledge_L MMG MMG 8 [facility] 2020-01-04 06:57:00 2020-01-04 06:57:00 Outpatient Rutledge_L MMG MMG [id number] [facility] 2020-01-02 00:00:00 2020-01-02 00:00:00 Tory Rodrigues MD: [address] [facility], [place] [address] , Ph. [phone] Rutledge_L MMG [facility] 5 [facility] 2019-12-19 03:47:00 2019-12-19 03:47:00 Outpatient Rutledge_L MMG MMG [id number] [facility] 2019-12-11 11:19:00 2019-12-11 11:19:00 Outpatient DICSANA_ TEETEE MOALLEN [facility] [id number] [facility] 2019-11-21 15:26:00 2019-11-21 18:03:00 Emergency ER AYAZ DURAND [facility] [id number] [facility] 2019-09-19 00:00:00 2019-09-19 00:00:00 YOLIE Roa: [address] [address] , Ph. [phone] MM[facility] 1112 [facility] 2019-08-02 00:00:00 2019-08-02 00:00:00 Tory Rodrigues MD: [address] [address] , Ph. [phone] MM[facility] 0925 [facility] 2019-07-19 00:00:00 2019-07-19 00:00:00 Tory Rodrigues MD: [address], [place] [address] , Ph. [phone] MM[facility] [id number] 0911 [facility] 2019-07-06 09:19:00 2019-07-06 09:19:00 Outpatient GRETCHEN RODRIGUES TORY [facility] [id number] [facility] 2019-07-05 00:00:00 2019-07-05 00:00:00 Tory Rodrigues MD: [address], [place] [address] , Ph. [phone] MM[facility] 28 [facility] 2019-06-05 00:00:00 2019-06-05 00:00:00 Tory Rodrigues MD: [address], [place] [address] , Ph. [phone] MM[facility] 29 [facility] 2019-05-08 00:00:00 2019-05-08 00:00:00 Tory Rodrigues MD: [address], [place] [address] , Ph. [phone] MM[facility] 0701 [facility] 2019-04-17 13:48:00 2019-04-17 19:06:00 Emergency ER MIKE LYONS [facility] [id number] [facility] 2019-04-10 12:12:00 2019-04-10 12:12:00 Outpatient TORY MARLEY [facility] [id number] [facility] 2019-04-10 00:00:00 2019-04-10 00:00:00 Tory Rodrigues MD: [address], [place] [address] , Ph. [phone] MM[facility] 0603 [facility] 2019-04-04 00:00:00 2019-04-04 00:00:00 Bernardo Robles MD: [address], [place] [address] , Ph. [phone] MM[facility] surgery 0528 [facility] 2019-03-14 12:48:00 2019-03-16 12:45:00 Inpatient ER TORY RODRIGUES [facility] [id number] [facility] 2019-03-14 00:00:00 2019-03-14 00:00:00 Tory Rodrigues MD: [address], [place] [address] , Ph. [phone] [facility] 0507 [facility] 2019-02-27 20:24:00 2019-02-28 07:32:00 Emergency ER OWEN RINCON [facility] [id number] [facility] 2019-02-14 16:28:00 2019-02-16 13:00:00 Inpatient EL TORY RODRIGUES [facility] [id number] [facility] 2019-02-14 00:00:00 2019-02-14 00:00:00 Tory Rodrigues MD: [address], [place] [address] , Ph. [phone] MM[facility] 0409 [facility] 2019-02-07 00:00:00 2019-02-07 00:00:00 Tory Rodrigues MD: [address], [place] [address] , Ph. [phone] MM[facility] 0402 [facility] 2019-01-26 09:24:00 2019-01-26 09:24:00 Outpatient TORY MARLEY [facility] [id number] [facility] 2019-01-26 00:00:00 2019-01-26 00:00:00 Tory Rodrigues MD: [address], [address], [place] [address] , Ph. [phone] [facility] [id number] 0321 [facility] 2019-01-24 15:52:00 2019-01-24 15:52:00 Outpatient GRETCHEN JOLENETORY SMALL [facility] [id number] [facility] 2019-01-03 11:55:00 2019-01-03 11:55:00 Outpatient GRETCHEN RODRIGUES TORY [facility] [id number] [facility] 2019-01-03 00:00:00 2019-01-03 00:00:00 Tory Rodrigues MD: [address], [address], [place] [address] , Ph. [phone] MM[facility] [id number] 0226 [facility] 2018-11-25 20:29:00 2018-11-25 20:29:00 Emergency ER FABIO TOBAR [facility] [id number] [facility] 2018-01-20 16:27:00 2018-01-20 20:45:00 Emergency ER GRAZYNA PEDRAZA [facility] [id number] [facility] 2017-11-14 14:05:00 2017-11-14 16:35:00 Emergency ER MARY HOLLY [facility] [id number] [facility] 2016-11-09 21:51:00 2016-11-09 23:24:00 Emergency ER RAMIRO MAY [facility] [id number] [facility] 2016-06-26 10:24:00 2016-06-26 10:24:00 Outpatient TORY MARLEY [facility] [id number] [facility] 2015-11-14 15:25:00 2015-11-14 15:25:00 Outpatient KATELYNN PATEL [facility] [id number] [facility] 2015-11-09 16:47:00 2015-11-09 17:19:00 Emergency ER GRAZYNA PEDRAZA [facility] [id number] [facility] 2015-10-16 14:20:00 2015-10-16 15:56:00 Emergency ER RAMIRO MAY [facility] [id number] [facility] 2015-05-12 12:25:00 2015-05-12 14:27:00 Emergency ER YUNG MEDEIROS [facility] [id number] [facility] 2014-12-23 15:21:00 2014-12-23 20:00:00 Emergency ER Rene Goins [facility] [id number] [facility] 2014-09-11 10:40:00 2014-09-11 10:40:00 Outpatient TORY MARLEY [facility] [id number] [facility] 2014-09-09 14:01:00 2014-09-09 18:52:00 Emergency ER NATALIE HURD [facility] [id number] [facility] 2014-09-03 08:02:00 2014-09-03 10:15:00 Emergency ER NADINE PINTO [facility] [id number] [facility] 2014-08-06 13:02:00 2014-08-06 13:49:00 Emergency ER RAMIRO MAY [facility] [id number] [facility] 2013-03-30 12:05:00 2013-03-30 13:50:00 Emergency ER RAMIRO MAY [facility] [id number] [facility] 2013-02-01 08:56:00 2013-02-01 09:28:00 Emergency ER OWEN RINCON [facility] [id number] [facility] 2012-09-06 20:15:00 2012-09-06 22:25:00 Emergency ER RAMIRO MAY [facility] [id number] [facility] [place] 2012-05-18 22:48:00 2012-05-19 00:24:00 Emergency ER YUNG MEDEIROS [facility] [id number] [facility] 2011-12-23 07:58:00 2011-12-23 10:25:00 Emergency ER OWEN RINCON [facility] [id number] [facility] [place] [facility] 2011-11-11 15:39:00 2011-11-13 10:42:00 Inpatient TORY MARLEY [facility] [id number] [facility] [place] Results Test Description Test Time Test Comments Results Result [facility] - [id number] 10:44:10* Test Item Value Reference Range Interpretation Comme nts Leukocytes (test code = Leukocytes) Negative Nitrite (test code = Nitrite) negative Urobilinogen (test code = Urobilinogen) 1 Protein (test code = Protein) Negative pH (test code = pH) 6.0 Blood (test code = Blood) Negative Specific [place] (test code = Specific [place]) 1.025 Ketone (test code = Ketone) Negative Bilirubin (test code = Bilirubin) Negative Glucose (test code = Glucose) Negative Appearance (test code = Appearance) Clear Color (test code = Color) Yellow [facility] [id number] 10:16:15* Test Item Value Reference Range Interpretation Comme nts Test (test code = Test) negative [facility] HospitalHCG [id number] 10:25:00* Test Item Value Reference Range Interpretation Comme nts HCG quantitative (test code = HCG quantitative) < 0.1 0-5 [facility] HospitalUrinalysis macro (dipstick) panel - [id number] 08:30:30* Test Item Value Reference Range Interpretation Comme nts Leukocytes (test code = Leukocytes) Negative Nitrite (test code = Nitrite) negative Urobilinogen (test code = Urobilinogen) 1 Protein (test code = Protein) Negative pH (test code = pH) 6.0 Blood (test code = Blood) Negative Specific [place] (test code = Specific [place]) 1.030 Ketone (test code = Ketone) Negative Bilirubin (test code = Bilirubin) Negative Glucose (test code = Glucose) Negative Appearance (test code = Appearance) Clear Color (test code = Color) Yellow [facility], [id number] 08:25:46* Test Item Value Reference Range Interpretation Comme nts Test (test code = Test) negative [facility] [id number] 07:34:00 * Test Item Value Reference Range Interpretation Comme nts mg - cancer history assessment result (test code = [facility] [place]) meets criteria A [facility] Grouppregnancy test, [id number] 16:10:50* Test Item Value Reference Range Interpretation Comme nts Test (test code = Test) negative [facility] HospitalMicroscopic observation [Identifier] in Vaginal fluid by Wet sliiuoyolmx4528-43-58 10:17:41* Test Item Value Reference Range Interpretation Comme nts Clue Cells (test code = Clue Cells) negative WBCs (test code = WBCs) negative Trichomonads (test code = Trichomonads) negative Epithelial cells (test code = Epithelial cells) normal RBCs (test code = RBCs) positive [facility], [id number] 18:02:09* Test Item Value Reference Range Interpretation Comme nts Test (test code = Test) negative [facility], [id number] 11:50:35* Test Item Value Reference Range Interpretation Comme nts Test (test code = Test) negative [facility], [id number] 15:40:27* Test Item Value Reference Range Interpretation Comme nts Test (test code = Test) negative [facility], [id number] 14:38:52* Test Item Value Reference Range Interpretation Comme nts Test (test code = Test) negative [facility], [id number] 14:38:52* Test Item Value Reference Range Interpretation Comme nts Test (test code = Test) negative [facility], [id number] 14:38:52* Test Item Value Reference Range Interpretation Comme nts Test (test code = Test) negative [facility] + TV, DNA, urine/[id number] 00:00:00* Test Item Value Reference Range Interpretation [...] to antibiotic resistance by molecular analysis)) negative [facility] TV, DNA, urine/[id number] 00:00:00* Test Item Value Reference Range Interpretation [...] [facility] + TV, DNA, urine/[id number] 00:00:00* Test Item Value Reference Range Interpretation [...] to antibiotic resistance by molecular analysis)) negative [facility], LB + [id number] 00:00:00* Test Item Value Reference Range Interpretation Comme [facility] HPV type-detect 4.0 by real time PCR high risk subtypes only (test code = HPV type-detect 4.0 by real time PCR high risk subtypes only) not detected liquid Pap test (test code = liquid Pap test) normal [facility], LB + [id number] 00:00:00* Test Item Value Reference Range Interpretation Comme [facility] HPV type-detect 4.0 by real time PCR high risk subtypes only (test code = HPV type-detect 4.0 by real time PCR high risk subtypes only) not detected liquid Pap test (test code = liquid Pap test) normal [facility], LB + [id number] 00:00:00* Test Item Value Reference Range Interpretation Comme [facility] HPV type-detect 4.0 by real time PCR high risk subtypes only (test code = HPV type-detect 4.0 by real time PCR high risk subtypes only) not detected liquid Pap test (test code = liquid Pap test) normal [facility] W Auto Differential panel - [id number] 12:15:00 * Test Item Value Reference Range Interpretation Comme nts white blood count (test code = white blood count) 5.0 K/uL 4.0-11.5 red blood count (test code = red blood count) 4.15 M/uL 3.80-5.20 hemoglobin (test code = hemoglobin) 12.9 g/dL 10.5-15.7 hematocrit (test code = hematocrit) 40.9 % 34.0-50.0 MCV [Entitic volume] (test c ode = 49172-4) 98.6 fL 86-100 mean corpuscular hemoglobin (test [...] neutrophils/100 leukocytes in Blood (test code = 94613-7) 46.5 % 44.4-80.1 Immature granulocytes [#/vol ume] in Blood (test code = 12240-0) 0.0 K/uL 0.0-0.03 lymphocyte% (test code = lymphocyte%) 44.6 % 10.0-50.0 mono % (test code = mono %) 6.3 % 3.6-12.0 eos % (test code = eos %) 1.6 % 0.0-5.4 Basophils/100 leukocytes in Unspecified specimen (test code = 90231-2) 1.0 % 0.1-1.2 Band form neutrophils [#/vol ume] in Blood (test code = 59623-9) 2.34 K/uL 1.56-6.13 Lymphocytes [#/volume] in Unspecified specimen by Automated count (test code = 54591-2) 2.3 K/uL 1.18-3.74 mono # (test code = mono #) 0.32 K/uL 0.24-0.86 eos # (test code = eos #) 0.08 K/uL 0.04-0.36 basophil # (test code = baso damir #) 0.05 K/uL 0.01-0.08 NRBC% (test code = NRBC%) 0 /100 WBC 0-0.2 NRBC# (test code = NRBC#) 0 K/uL [facility]Com[facility] 2000 [facility] - Serum or Plasma [...] 6768-6) 66 U/L 35-105 [facility] HospitalCBC W Auto Differential panel - [id number] 12:15:00 * Test Item Value Reference Range Interpretation Comme nts white blood count (test code = white blood count) 5.0 K/uL 4.0-11.5 red blood count (test code = red blood count) 4.15 M/uL 3.80-5.20 hemoglobin (test code = hemoglobin) 12.9 g/dL 10.5-15.7 hematocrit (test code = hematocrit) 40.9 % 34.0-50.0 MCV [Entitic volume] (test c ode = 32387-9) 98.6 fL 86-100 mean corpuscular hemoglobin (test [...] neutrophils/100 leukocytes in Blood (test code = 33008-4) 46.5 % 44.4-80.1 Immature granulocytes [#/vol ume] in Blood (test code = 55376-0) 0.0 K/uL 0.0-0.03 lymphocyte% (test code = lymphocyte%) 44.6 % 10.0-50.0 mono % (test code = mono %) 6.3 % 3.6-12.0 eos % (test code = eos %) 1.6 % 0.0-5.4 Basophils/100 leukocytes in Unspecified specimen (test code = 20305-7) 1.0 % 0.1-1.2 Band form neutrophils [#/vol ume] in Blood (test code = 31930-7) 2.34 K/uL 1.56-6.13 Lymphocytes [#/volume] in Unspecified specimen by Automated count (test code = 46059-0) 2.3 K/uL 1.18-3.74 mono # (test code [...] (test code = 6768-6) 66 U/L 35-105 [facility] W Auto Differential panel - [id number] 12:15:00 * Test Item Value Reference Range Interpretation Comme nts white blood count (test code = white blood count) 5.0 K/uL 4.0-11.5 red blood count (test code = red blood count) 4.15 M/uL 3.80-5.20 hemoglobin (test code = hemoglobin) 12.9 g/dL 10.5-15.7 hematocrit (test code = hematocrit) 40.9 % 34.0-50.0 MCV [Entitic volume] (test c ode = 04661-5) 98.6 fL 86-100 mean corpuscular hemoglobin (test [...] neutrophils/100 leukocytes in Blood (test code = 74788-0) 46.5 % 44.4-80.1 Immature granulocytes [#/vol ume] in Blood (test code = 26234-5) 0.0 K/uL 0.0-0.03 lymphocyte% (test code = lymphocyte%) 44.6 % 10.0-50.0 mono % (test code = mono %) 6.3 % 3.6-12.0 eos % (test code = eos %) 1.6 % 0.0-5.4 Basophils/100 leukocytes in Unspecified specimen (test code = 86147-9) 1.0 % 0.1-1.2 Band form neutrophils [#/vol ume] in Blood (test code = 95350-9) 2.34 K/uL 1.56-6.13 Lymphocytes [#/volume] in Unspecified specimen by Automated count (test code = 16325-0) 2.3 K/uL 1.18-3.74 mono # (test code [...] (test code = 6768-6) 66 U/L 35-105 [facility] GroupReagin Ab [Presence] in Serum by [id number] 00:00:00* Test Item Value Reference Range Interpretation Comme nts Reagin Ab [Presence] in Seru m by RPR (test code = 30236-6) nonreactive nonreactive [facility] HospitalDifferential panel, method unspecified - [id number] 00:00:00NeutrophilsBandLymphocyteAtypical LymphMonocyteEosinophilBasophilMetamyelocyteMyelocytePromyelocyteBlastsNucleated Red Blood CellAbs Neutrophil Count (Man)Abs Lymph Count (Man)Abs Monocyte Count (Man)Abs Eosinophil Count (Man)Abs Basophil Count (Man)Platelet EstimatePlatelet MorphologyPolychromasiaMacrocytosisHypersegmented Polys [facility] HospitalThyrotropin [Units/volume] in Serum or [id number] 00:00:00* Test Item Value Reference Range Interpretation Comme nts Thyrotropin [Units/volume] i n Serum or Plasma (test code = 3016-3) 0.95 uIU/mL 0.36-3.74 [facility] HospitalThyroxine (T4) free [Mass/volume] in Serum or Plasma 2021-08-19 00:00:00* Test Item Value Reference Range Interpretation Comme nts free T4 (test code = free T4) 0.96 NG/dL 0.93-1.7 [facility] HospitalHIV 1+2 Ab [Presence] in [id number] 00:00:00HIV P24 AgHIV-1/2 AbMaEast [facility] HospitalHepatitis B virus surface Ag [Presence] in [id number] 00:00:00* Test Item Value Reference Range Interpretation Comme nts .hepatitis B surface antigen (test code = .hepatitis B surface antigen) negative negative [facility] GroupReagin Ab [Presence] in Serum by [id number] 00:00:00* Test Item Value Reference Range Interpretation Comme nts Reagin Ab [Presence] in Seru m by RPR (test code = 63351-4) nonreactive nonreactive [facility] GroupDifferential panel, method unspecified - [id number] 00:00:00NeutrophilsBandLymphocyteAtypical LymphMonocyteEosinophilBasophilMetamyelocyteMyelocytePromyelocyteBlastsNucleated Red Blood CellAbs Neutrophil Count (Man)Abs Lymph Count (Man)Abs Monocyte Count (Man)Abs Eosinophil Count (Man)Abs Basophil Count (Man)Platelet EstimatePlatelet MorphologyPolychromasiaMacrocytosisHypersegmented Polys [facility] GroupThyrotropin [Units/volume] in Serum or [id number] 00:00:00* Test Item Value Reference Range Interpretation Comme nts Thyrotropin [Units/volume] i n Serum or Plasma (test code = 3016-3) 0.95 uIU/mL 0.36-3.74 [facility] HospitalThyroxine (T4) free [Mass/volume] in Serum or Plasma 2021-08-19 00:00:00* Test Item Value Reference Range Interpretation Comme nts free T4 (test code = free T4) 0.96 NG/dL 0.93-1.7 [facility] HospitalHIV 1+2 Ab [Presence] in [id number] 00:00:00HIV P24 AgHIV-1/2 AbMataBeacham Memorial HospitalHepatitis B virus surface Ag [Presence] in [id number] 00:00:00* Test Item Value Reference Range Interpretation Comme nts .hepatitis B surface antigen (test code = .hepatitis B surface antigen) negative negative [facility] GroupReagin Ab [Presence] in Serum by [id number] 00:00:00* Test Item Value Reference Range Interpretation Comme nts Reagin Ab [Presence] in Seru m by RPR (test code = 57787-9) nonreactive nonreactive [facility] GroupDifferential panel, method unspecified - [id number] 00:00:00NeutrophilsBandLymphocyteAtypical LymphMonocyteEosinophilBasophilMetamyelocyteMyelocytePromyelocyteBlastsNucleated Red Blood CellAbs Neutrophil Count (Man)Abs Lymph Count (Man)Abs Monocyte Count (Man)Abs Eosinophil Count (Man)Abs Basophil Count (Man)Platelet EstimatePlatelet MorphologyPolychromasiaMacrocytosisHypersegmented Polys [facility] HospitalThyrotropin [Units/volume] in Serum or [id number] 00:00:00* Test Item Value Reference Range Interpretation Comme nts Thyrotropin [Units/volume] i n Serum or Plasma (test code = 3016-3) 0.95 uIU/mL 0.36-3.74 [facility] HospitalThyroxine (T4) free [Mass/volume] in Serum or Plasma 2021-08-19 00:00:00* Test Item Value Reference Range Interpretation Comme nts free T4 (test code = free T4) 0.96 NG/dL 0.93-1.7 [facility] HospitalHIV 1+2 Ab [Presence] in [id number] 00:00:00HIV P24 AgHIV-1/2 AbMataBeacham Memorial HospitalHepatitis B virus surface Ag [Presence] in [id number] 00:00:00* Test Item Value Reference Range Interpretation Comme nts .hepatitis B surface antigen (test code = .hepatitis B surface antigen) negative negative [facility] HospitalUrinalysis macro (dipstick) panel - [id number] 16:06:55* Test Item Value Reference Range Interpretation Comme nts Leukocytes (test code = Leukocytes) Negative Nitrite (test code = Nitrite) negative Urobilinogen (test code = Urobilinogen) .2 Protein (test code = Protein) Negative pH (test code = pH) 7.0 Blood (test code = Blood) Non-Hemolyzed: Trace Specific [place] (test code = Specific [place]) 1.020 Ketone (test code = Ketone) Negative Bilirubin (test code = Bilirubin) Negative Glucose (test code = Glucose) Negative Appearance (test code = Appearance) Clear Color (test code = Color) Yellow [facility] Hospitalpregnancy test, [id number] 16:22:27* Test Item Value Reference Range Interpretation Comme nts Test (test code = Test) negative [facility] Hospitalpregnancy test, [id number] 16:22:27* Test Item Value Reference Range Interpretation Comme nts Test (test code = Test) negative [facility] HospitalUrinalysis macro (dipstick) panel - [id number] 16:22:10* Test Item Value Reference Range Interpretation Comme nts Leukocytes (test code = Leukocytes) Negative Nitrite (test code = Nitrite) negative Urobilinogen (test code = Urobilinogen) .2 Protein (test code = Protein) Negative pH (test code = pH) 7.0 Blood (test code = Blood) Negative Specific [place] (test code = Specific [place]) 1.025 Ketone (test code = Ketone) Negative Bilirubin (test code = Bilirubin) Negative Glucose (test code = Glucose) Negative Appearance (test code = Appearance) Clear Color (test code = Color) Yellow [facility] HospitalUrinalysis macro (dipstick) panel - [id number] 16:22:10* Test Item Value Reference Range Interpretation Comme nts Leukocytes (test code = Leukocytes) Negative Nitrite (test code = Nitrite) negative Urobilinogen (test code = Urobilinogen) .2 Protein (test code = Protein) Negative pH (test code = pH) 7.0 Blood (test code = Blood) Negative Specific [place] (test code = Specific [place]) 1.025 Ketone (test code = Ketone) Negative Bilirubin (test code = Bilirubin) Negative Glucose (test code = Glucose) Negative Appearance (test code = Appearance) Clear Color (test code = Color) Yellow [facility] HospitalReagin Ab [Presence] in Serum by [id number] 06:56:00* Test Item Value Reference Range Interpretation Comme nts Reagin Ab [Presence] in Seru m by RPR (test code = 65683-0) nonreactive nonreactive [facility] HospitalHIV 1+2 Ab [Presence] in Ogsss5569-07-30 06:56:00HIV P24 AgHIV-1/2 AbMataBeacham Memorial HospitalHepatitis B virus surface Ag [Presence] in [id number] 06:56:00* Test Item Value Reference Range Interpretation Comme nts .hepatitis B surface antigen (test code = .hepatitis B surface antigen) negative negative [facility] HospitalHepatitis C virus RNA [Units/volume] (viral load) in Serum or Plasma by Probe with signal [id number] 06:56:00* Test Item Value Reference Range Interpretation Comme nts hepatitis C RNA CHICO,qual (te st code = hepatitis C RNA [place],qual) negative negative [facility] Hospitalpregnancy test, [id number] 11:12:00* Test Item Value Reference Range Interpretation Comme nts Test (test code = Test) negative [facility] HospitalPLACENTA THIRD [id number] 17:41:00 RUN DATE: 08/31/19 [facility] PAGE 1 RUN TIME: 914 Specimen Inquiry RUN USER: INTERFACE -------- ----PATIENT: ANJELICA NAVARRO LOC: JULY U #: [id number] AGE/SX: 29/F ROOM: 2023 RE08/02/19REG DR: Isaiah Chase MD : 90 BED: A DIS: 08/30/19 STATUS: DIS IN TLOC: SPEC #: [id number] RECD: 08/26/19 STATUS: SANDY DOBBINS #: [id number] ILENE: 08/26/19- SUBM DR: Isaiah Chase MD ENTERED: 08/28/19 SP TYPE: PLACIII OTHR DR: ORDERED: LEVEL V SURGICA CODES: LM3601 - PLACENTA, NOS PROCEDURES: LEVEL V SURGICA (Incomplete) TISSUES: PLACENTA, NOS - PLACENTA CLINICAL HISTORY 28 year old, 35.5 weeks,[id number], section, abnormal cord doppler, severe IUGR, prematurity, non-reassuring fetalmonitoring, increased SD ratios (kr) FINAL DIAGNOSIS Placenta, 35.5 weeks gestational age, Cesareansection: - third trimester placenta, 300 gms (10th percentile) - meconium macrophages within membranes - patchy villous edema - marginally inserted trivascular umbilical cord and membranes free of inflammation CPT code(s): 31214 [facility] 08/30/19 GROSS DESCRIPTION The specimen was received [...] x 3.0 cm in greatest dimension CONTINUED ONNEXT PAGE RUN DATE: 08/31/19 [facility] PAGE 2 RUN TIME: 914 Specimen Inquiry RUN USER: INTERFACE SPEC #: [id number] PATIENT: ANJELICA NAVARRO #[id number] (Continued) GROSS DESCRIPTION (Continued) Accessorylobes: None Maternal surface: Lobulated and intact Parenchyma: Red, beefy, and spongy with peripheral fibrosis Parenchyma lesions: None Cassettes: A1 through A4 carole/erum 08/28/19 @ 1207 Signed Gina Hurtado MD 08/30/19 1741 END OF REPORT MARISA W/AUTO DIFF 2019-08-27 08:08:00* Test Item Value [...] code = PLTMR) NORMAL NORMAL CBC W/AUTO [id number] 05:33:00* Test Item Value Reference Range Interpretation [...] code = PLTMR) NORMAL NORMAL CBC W/AUTO [id number] 05:29:00* Test Item Value Reference Range Interpretation [...] (test code = PLTMR) NORMAL NORMAL URINALYSIS [id number] 22:37:00* Test Item Value Reference Range Interpretation [...] = MUCU) RARE NONE SEEN CBC W/AUTO [id number] 18:07:00* Test Item Value Reference Range Interpretation [...] = PLTMR) NORMAL NORMAL AG HEPATITIS B [id number] 00:46:00* Test Item Value Reference Range Interpretation Comme nts AG HEPATITIS B SURFACE (test code = HBSAG) NONREACTIVE NONREACTIVE IS CONSENT FORM SIGNED FOR HIV TESTING? YAB HEPATITIS C [id number] 00:46:00* Test Item Value Reference Range Interpretation Comme nts AB HEPATITIS C (test code = HCVAB) NONREACTIVE NONREACTIVE SIGNAL TO CUTOFF (test code = CUTOFF) 0.12 <0.80 N IS CONSENT FORM SIGNED FOR HIV TESTING? YRUBELLA [id number] 00:46:00* Test Item Value Reference Range Interpretation Comme nts RUBELLA SCREEN (test code = RUBSC) 78.5 IUnit/ml Results >10.0IUn its/ml are considered positive inaccordance with the CLSI guidelines and based on the WHO International Standard for Anti-Rubella serum as anindicator of immune status and a breakpoint to detect mostseropositive persons. IS CONSENT FORM SIGNED FOR HIV TESTING? YAB [id number] 00:46:00* Test Item Value Reference Range Interpretation Comme nts AB TREPONEMA (test code = TREPAB) NONREACTIVE NONREACTIVE IS CONSENT FORM SIGNED FOR HIV TESTING? YAB HIV 1 00:46:00* Test Item Value Reference Range Interpretation Comme nts AB HIV 1 2 (test code = POT73IX) NONREACTIVE NONREACTIVE Done by [employer] 4th Gen HIV Ag/Ab Combo Screen IS CONSENT FORM SIGNED FOR HIV TESTING? YAG HEPATITIS B [id number] 00:10:00* Test Item Value Reference Range Interpretation Comme nts AG HEPATITIS B SURFACE (test code = HBSAG) NONREACTIVE NONREACTIVE IS CONSENT FORM SIGNED FOR HIV TESTING? YA HEPATITIS C [id number] 00:10:00* Test Item Value Reference Range Interpretation Comme nts AB HEPATITIS C (test code = HCVAB) NONREACTIVE SIGNAL TO CUTOFF (test code = CUTOFF) <0.80 IS CONSENT FORM SIGNED FOR HIV TESTING? YRUBELLA [id number] 00:10:00* Test Item Value Reference Range Interpretation Comme nts RUBELLA SCREEN (test code = RUBSC) 78.5 IUnit/ml Results >10.0IUn its/ml are considered positive inaccordance with the CLSI guidelines and based on the WHO International Standard for Anti-Rubella serum as anindicator of immune status and a breakpoint to detect mostseropositive persons. IS CONSENT FORM SIGNED FOR HIV TESTING? GRETCHENB [id number] 00:10:00* Test Item Value Reference Range Interpretation Comme nts AB TREPONEMA (test code = TREPAB) NONREACTIVE NONREACTIVE IS CONSENT FORM SIGNED FOR HIV TESTING? [facility] HIV 1 00:10:00* Test Item Value Reference Range Interpretation Comme nts AB HIV 1 2 (test code = RBU56XO) NONREACTIVE IS CONSENT FORM SIGNED FOR HIV TESTING? YCBC W/AUTO [id number] 23:05:00* Test Item Value Reference Range Interpretation [...] = PLTMR) NORMAL NORMAL Biophysical profile panel [id number] 09:13:00* Test Item Value Reference Range Interpretation Comme nts Amniotic Fluid Index (test c ode = Amniotic Fluid Index) 2 Tone (test code = Tone) 2 Breathing (test code = Breathing) 2 Movement (test code = Movement) [facility] [id number] 09:13:00* Test Item Value Reference Range Interpretation Comme nts Amniotic Fluid Index (test c ode = Amniotic Fluid Index) 2 Tone (test code = Tone) 2 Breathing (test code = Breathing) 2 Movement (test code = Movement) 2 [facility] HospitalFetal Biophysical profile panel [id number] 09:13:00* Test Item Value Reference Range Interpretation Comme nts Amniotic Fluid Index (test c ode = Amniotic Fluid Index) 2 Tone (test code = Tone) 2 Breathing (test code = Breathing) 2 Movement (test code = Movement) 2 [facility] HospitalUrinalysis macro (dipstick) panel - [id number] 09:21:00* Test Item Value Reference Range Interpretation Comme nts Leukocytes (test code = Leukocytes) Trace Nitrite (test code = Nitrite) negative Urobilinogen (test code = Urobilinogen) .2 Protein (test code = Protein) Negative pH (test code = pH) 7.0 Blood (test code = Blood) Negative Specific [place] (test code = Specific [place]) 1.020 Ketone (test code = Ketone) Negative Bilirubin (test code = Bilirubin) Negative Glucose (test code = Glucose) Negative Appearance (test code = Appearance) Clear Color (test code = Color) Dark Yellow [facility] HospitalUrinalysis macro (dipstick) panel - [id number] 11:07:00* Test Item Value Reference Range Interpretation Comme nts Leukocytes (test code = Leukocytes) Negative Nitrite (test code = Nitrite) negative Urobilinogen (test code = Urobilinogen) 1 Protein (test code = Protein) Negative pH (test code = pH) 7.0 Blood (test code = Blood) Negative Specific [place] (test code = Specific [place]) 1.020 Ketone (test code = Ketone) Negative Bilirubin (test code = Bilirubin) Negative Glucose (test code = Glucose) Negative Appearance (test code = Appearance) Clear Color (test code = Color) Yellow [facility] HospitalCandida sp DNA [Presence] in Vaginal fluid by Probe and target amplification [id number] 00:00:00* Test Item Value Reference Range Interpretation [...] luis m glabrata by real-time PCR) negative [facility] GroupCandida sp DNA [Presence] in Vaginal fluid by Probe and target amplification [id number] 00:00:00* Test Item Value Reference Range Interpretation [...] luis m glabrata by real-time PCR) negative [facility] GroupCandida sp DNA [Presence] in Vaginal fluid by Probe and target amplification [id number] 00:00:00* Test Item Value Reference Range Interpretation Comme nts luis m albicans by real-esme e PCR (test code = luis m albicans by real-time PCR) positive A luis m tropicalis by real-t dennis PCR (test code = luis m tropicalis by real-time PCR) negative luis m parapsilosis by real -time PCR (test code = lui sm parapsilosis by real-time PCR) negative luis m glabrata by real-esme e PCR (test code = luis m glabrata by real-time PCR) negative [facility]Col[facility] count [#/volume] in [id number] 00:00:00* Test Item Value Reference Range Interpretation [...] = pseudomonas aeruginosa by real-time PCR) negative [facility] Groupbacterial vaginosis panel, [id number] 00:00:00* Test Item Value Reference Range Interpretation [...] [facility] in [id number] 00:00:00* Test Item Value Reference Range Interpretation [...] negative [facility] panel, [id number] 00:00:00* Test Item Value Reference Range Interpretation [...] [facility] HospitalCol[facility] count [#/volume] in [id number] 00:00:00* Test Item Value Reference Range Interpretation [...] negative [facility]osis panel, [id number] 00:00:00* Test Item Value Reference Range Interpretation [...] panel) by real time PCR) see comment [facility] GroupSurgical pathology [id number] 09:45:00Results [facility] [id number] 09:45:00Results [facility] GroupS[facility] [id number] 09:45:00Results [facility] GroupCBC W Auto Differential panel - [id number] 04:12:00 * Test Item Value Reference Range Interpretation Comme nts white blood count (test code = white blood count) 7.2 K/uL 4.0-11.5 red blood count (test code = red blood count) 3.69 M/uL 3.80-5.20 L Hemoglobin [Mass/volume] in Blood (test code = 718-7) 11.5 g/dL 10.5-15.7 hematocrit (test code = hematocrit) 35.0 % 34.0-50.0 Erythrocyte mean corpuscular volume [Entitic volume] (test code = 79242-1) 94.8 fL 78-98 Erythrocyte mean corpuscular hemoglobin [Entitic mass] (test code = 64992-2) 31.3 pg 26.2-33.4 mean corpuscular HGB conc (t est code = mean corpuscular HGB conc) 33.0 g/dL 31.5-36.2 red cell distribution width (test code = red cell distribution width) 11.3 % 11.5-15.5 L Platelets [#/volume] in Bloo d (test code = 31269-1) 221 K/uL 137-338 Platelet mean volume [Entiti c volume] in Blood (test code = 52069-5) 8.5 fL 8.4-11.8 Neutrophils.band form/100 leukocytes in Blood (test code = 25040-4) 95.1 % 44.4-80.1 Lymphocytes/100 leukocytes i n Body fluid (test code = 00540-9) 4.0 % 10.0-50.0 L Monocytes/100 leukocytes in Blood by Automated count (test code = 5905-5) 0.6 % 3.6-12.04 L Eosinophils/100 leukocytes i n Blood by Automated count (test code = 713-8) 0.1 % 0.0-5.41 Basophils/100 leukocytes in Unspecified specimen (test code = 66743-7) 0.2 % 0.0-0.79 [facility]different[facility], [id number] 04:12:00 NeutrophilsBandLymphocyteAtypical LymphMonocyteEosinophilBasophilPlatelet EstimatePlatelet MorphologyTarget CellsToxic GranulationToxic Vacuolation [facility] HospitalCB W Auto Differential panel - [id number] 04:12:00 * Test Item Value Reference Range Interpretation Comme nts white blood count (test code = white blood count) 7.2 K/uL 4.0-11.5 red blood count (test code = red blood count) 3.69 M/uL 3.80-5.20 L Hemoglobin [Mass/volume] in Blood (test code = 718-7) 11.5 g/dL 10.5-15.7 hematocrit (test code = hematocrit) 35.0 % 34.0-50.0 Erythrocyte mean corpuscular volume [Entitic volume] (test code = 74736-4) 94.8 fL 78-98 Erythrocyte mean corpuscular hemoglobin [Entitic mass] (test code = 88520-7) 31.3 pg 26.2-33.4 mean corpuscular HGB conc (t est code = mean corpuscular HGB conc) 33.0 g/dL 31.5-36.2 red cell distribution width (test code = red cell distribution width) 11.3 % 11.5-15.5 L Platelets [#/volume] in Bloo d (test code = 30954-1) 221 K/uL 137-338 Platelet mean volume [Entiti c volume] in Blood (test code = 35290-8) 8.5 fL 8.4-11.8 Neutrophils.band form/100 leukocytes in Blood (test code = 55734-1) 95.1 % 44.4-80.1 Lymphocytes/100 leukocytes i n Body fluid (test code = 34247-9) 4.0 % 10.0-50.0 L Monocytes/100 leukocytes in Blood by Automated count (test code = 5905-5) 0.6 % 3.6-12.04 L Eosinophils/100 leukocytes i n Blood by Automated count (test code = 713-8) 0.1 % 0.0-5.41 Basophils/100 leukocytes in Unspecified specimen (test code = 40713-3) 0.2 % 0.0-0.79 [facility]different[facility], [id number] 04:12:00 NeutrophilsBandLymphocyteAtypical LymphMonocyteEosinophilBasophilPlatelet EstimatePlatelet MorphologyTarget CellsToxic GranulationToxic Vacuolation [facility] HospitalCB W Auto Differential panel - [id number] 04:12:00 * Test Item Value Reference Range Interpretation Comme nts white blood count (test code = white blood count) 7.2 K/uL 4.0-11.5 red blood count (test code = red blood count) 3.69 M/uL 3.80-5.20 L Hemoglobin [Mass/volume] in Blood (test code = 718-7) 11.5 g/dL 10.5-15.7 hematocrit (test code = hematocrit) 35.0 % 34.0-50.0 Erythrocyte mean corpuscular volume [Entitic volume] (test code = 81162-5) 94.8 fL 78-98 Erythrocyte mean corpuscular hemoglobin [Entitic mass] (test code = 08270-4) 31.3 pg 26.2-33.4 mean corpuscular HGB conc (t est code = mean corpuscular HGB conc) 33.0 g/dL 31.5-36.2 red cell distribution width (test code = red cell distribution width) 11.3 % 11.5-15.5 L Platelets [#/volume] in Bloo d (test code = 61605-8) 221 K/uL 137-338 Platelet mean volume [Entiti c volume] in Blood (test code = 27911-9) 8.5 fL 8.4-11.8 Neutrophils.band form/100 leukocytes in Blood (test code = 49877-2) 95.1 % 44.4-80.1 Lymphocytes/100 leukocytes i n Body fluid (test code = 29392-1) 4.0 % 10.0-50.0 L Monocytes/100 leukocytes in Blood by Automated count (test code = 5905-5) 0.6 % 3.6-12.04 L Eosinophils/100 leukocytes i n Blood by Automated count (test code = 713-8) 0.1 % 0.0-5.41 Basophils/100 leukocytes in Unspecified specimen (test code = 80541-8) 0.2 % 0.0-0.79 [facility]different[facility], [id number] 04:12:00 NeutrophilsBandLymphocyteAtypical LymphMonocyteEosinophilBasophilPlatelet EstimatePlatelet MorphologyTarget CellsToxic GranulationToxic Vacuolation [facility] W Auto Differential panel - [id number] 03:30:00 * Test Item Value Reference Range [...] corpuscular volume [Entitic volume] (test code = 70593-1) 95.8 fL 78-98 Erythrocyte mean corpuscular hemoglobin [Entitic mass] (test code = 31199-8) 31.2 pg 26.2-33.4 mean corpuscular HGB conc (t est code = mean corpuscular HGB conc) 32.6 g/dL 31.5-36.2 red cell distribution width (test code = red cell distribution width) 11.2 % 11.5-15.5 L Platelets [#/volume] in Bloo d (test code = 43545-0) 184 K/uL 137-338 Platelet mean volume [Entiti c volume] in Blood (test code = 91388-8) 8.4 fL 8.4-11.8 Neutrophils.band form/100 leukocytes in Blood (test code = 75410-9) 59.6 % 44.4-80.1 Lymphocytes/100 leukocytes i n Body fluid (test code = 23049-5) 31.9 % 10.0-50.0 Monocytes/100 leukocytes in Blood by Automated count (test code = 5905-5) 5.9 % 3.6-12.04 Eosinophils/100 leukocytes i n Blood by Automated count (test code = 713-8) 1.0 % 0.0-5.41 Basophils/100 leukocytes in Unspecified specimen (test code = 75581-5) 1.5 % 0.0-0.79 H [facility]different[facility] panel, [id number] 03:30:00 NeutrophilsLymphocyteMonocytePlatelet EstimatePlatelet MorphologyJefferson Davis Community HospitalComprehensive metabolic 2000 panel - Serum or [id number] 03:30:00* Test Item Value Reference Range Interpretation [...] (test code = 6768-6) 52 U/L 35-105 [facility] W Auto Differential panel - [id number] 03:30:00 * Test Item Value Reference Range [...] corpuscular volume [Entitic volume] (test code = 94396-3) 95.8 fL 78-98 Erythrocyte mean corpuscular hemoglobin [Entitic mass] (test code = 74758-4) 31.2 pg 26.2-33.4 mean corpuscular HGB conc (t est code = mean corpuscular HGB conc) 32.6 g/dL 31.5-36.2 red cell distribution width (test code = red cell distribution width) 11.2 % 11.5-15.5 L Platelets [#/volume] in Bloo d (test code = 51462-4) 184 K/uL 137-338 Platelet mean volume [Entiti c volume] in Blood (test code = 80713-7) 8.4 fL 8.4-11.8 Neutrophils.band form/100 leukocytes in Blood (test code = 08204-4) 59.6 % 44.4-80.1 Lymphocytes/100 leukocytes i n Body fluid (test code = 60055-0) 31.9 % 10.0-50.0 Monocytes/100 leukocytes in Blood by Automated count (test code = 5905-5) 5.9 % 3.6-12.04 Eosinophils/100 leukocytes i n Blood by Automated count (test code = 713-8) 1.0 % 0.0-5.41 Basophils/100 leukocytes in Unspecified specimen (test code = 23026-9) 1.5 % 0.0-0.79 H [facility]different[facility] panel, [id number] 03:30:00 NeutrophilsLymphocyteMonocytePlatelet EstimatePlatelet MorphologyMaEast Mississippi State HospitalComprehensive metabolic 2000 panel - Serum or [id number] 03:30:00* Test Item Value Reference Range Interpretation [...] (test code = 6768-6) 52 U/L 35-105 [facility] W Auto Differential panel - [id number] 03:30:00 * Test Item Value Reference Range [...] corpuscular volume [Entitic volume] (test code = 31418-0) 95.8 fL 78-98 Erythrocyte mean corpuscular hemoglobin [Entitic mass] (test code = 83935-1) 31.2 pg 26.2-33.4 mean corpuscular HGB conc (t est code = mean corpuscular HGB conc) 32.6 g/dL 31.5-36.2 red cell distribution width (test code = red cell distribution width) 11.2 % 11.5-15.5 L Platelets [#/volume] in Bloo d (test code = 77455-0) 184 K/uL 137-338 Platelet mean volume [Entiti c volume] in Blood (test code = 66168-5) 8.4 fL 8.4-11.8 Neutrophils.band form/100 leukocytes in Blood (test code = 23987-0) 59.6 % 44.4-80.1 Lymphocytes/100 leukocytes i n Body fluid (test code = 05443-9) 31.9 % 10.0-50.0 Monocytes/100 leukocytes in Blood by Automated count (test code = 5905-5) 5.9 % 3.6-12.04 Eosinophils/100 leukocytes i n Blood by Automated count (test code = 713-8) 1.0 % 0.0-5.41 Basophils/100 leukocytes in Unspecified specimen (test code = 09549-1) 1.5 % 0.0-0.79 H [facility]different[facility] panel, [id number] 03:30:00 NeutrophilsLymphocyteMonocytePlatelet EstimatePlatelet MorphologyJefferson Davis Community HospitalComprehensive metabolic 2000 panel - Serum or [id number] 03:30:00* Test Item Value Reference Range Interpretation [...] (test code = 6768-6) 52 U/L 35-105 [facility] W Auto Differential panel - [id number] 12:57:00 * Test Item Value Reference Range Interpretation Comme nts white blood count (test code = white blood count) 4.5 K/uL 4.0-11.5 red blood count (test code = red blood count) 4.04 M/uL 3.80-5.20 Hemoglobin [Mass/volume] in Blood (test code = 718-7) 12.7 g/dL 10.5-15.7 hematocrit (test code = hematocrit) 38.3 % 34.0-50.0 Erythrocyte mean corpuscular volume [Entitic volume] (test code = 56285-0) 94.8 fL 78-98 Erythrocyte mean corpuscular hemoglobin [Entitic mass] (test code = 85867-9) 31.5 pg 26.2-33.4 mean corpuscular HGB conc (t est code = mean corpuscular HGB conc) 33.2 g/dL 31.5-36.2 red cell distribution width (test code = red cell distribution width) 11.2 % 11.5-15.5 L Platelets [#/volume] in Bloo d (test code = 18005-9) 261 K/uL 137-338 Platelet mean volume [Entiti c volume] in Blood (test code = 70601-3) 9.0 fL 8.4-11.8 Neutrophils.band form/100 leukocytes in Blood (test code = 29066-1) 67.1 % 44.4-80.1 Lymphocytes/100 leukocytes i n Body fluid (test code = 26061-0) 24.5 % 10.0-50.0 Monocytes/100 leukocytes in Blood by Automated count (test code = 5905-5) 6.1 % 3.6-12.04 Eosinophils/100 leukocytes i n Blood by Automated count (test code = 713-8) 0.4 % 0.0-5.41 Basophils/100 leukocytes in Unspecified specimen (test code = 60661-4) 1.9 % 0.0-0.79 H [facility]different[facility] panel, [id number] 12:57:00 NeutrophilsLymphocyteMonocytePlatelet EstimatePlatelet MorphologyMaEast Mississippi State HospitalComprehensive metabolic 2000 panel - Serum or [id number] 12:57:00* Test Item Value Reference Range Interpretation [...] [facility] HospitalCBC [facility] Auto Differential panel - [id number] 12:57:00 * Test Item Value Reference Range Interpretation Comme nts white blood count (test code = white blood count) 4.5 K/uL 4.0-11.5 red blood count (test code = red blood count) 4.04 M/uL 3.80-5.20 Hemoglobin [Mass/volume] in Blood (test code = 718-7) 12.7 g/dL 10.5-15.7 hematocrit (test code = hematocrit) 38.3 % 34.0-50.0 Erythrocyte mean corpuscular volume [Entitic volume] (test code = 22123-5) 94.8 fL 78-98 Erythrocyte mean corpuscular hemoglobin [Entitic mass] (test code = 72232-7) 31.5 pg 26.2-33.4 mean corpuscular HGB conc (t est code = mean corpuscular HGB conc) 33.2 g/dL 31.5-36.2 red cell distribution width (test code = red cell distribution width) 11.2 % 11.5-15.5 L Platelets [#/volume] in Bloo d (test code = 40707-2) 261 K/uL 137-338 Platelet mean volume [Entiti c volume] in Blood (test code = 80124-9) 9.0 fL 8.4-11.8 Neutrophils.band form/100 leukocytes in Blood (test code = 85835-8) 67.1 % 44.4-80.1 Lymphocytes/100 leukocytes i n Body fluid (test code = 32150-5) 24.5 % 10.0-50.0 Monocytes/100 leukocytes in Blood by Automated count (test code = 5905-5) 6.1 % 3.6-12.04 Eosinophils/100 leukocytes i n Blood by Automated count (test code = 713-8) 0.4 % 0.0-5.41 Basophils/100 leukocytes in Unspecified specimen (test code = 98977-3) 1.9 % 0.0-0.79 H [facility]different[facility], [id number] 12:57:00 NeutrophilsLymphocyteMonocytePlatelet EstimatePlatelet MorphologyMataBeacham Memorial HospitalComprehensive metabolic 2000 panel - Serum or [id number] 12:57:00* Test Item Value Reference Range Interpretation [...] (test code = 6768-6) 71 U/L 35-105 [facility] W Auto Differential panel - [id number] 12:57:00 * Test Item Value Reference Range Interpretation Comme nts white blood count (test code = white blood count) 4.5 K/uL 4.0-11.5 red blood count (test code = red blood count) 4.04 M/uL 3.80-5.20 Hemoglobin [Mass/volume] in Blood (test code = 718-7) 12.7 g/dL 10.5-15.7 hematocrit (test code = hematocrit) 38.3 % 34.0-50.0 Erythrocyte mean corpuscular volume [Entitic volume] (test code = 77054-1) 94.8 fL 78-98 Erythrocyte mean corpuscular hemoglobin [Entitic mass] (test code = 62166-3) 31.5 pg 26.2-33.4 mean corpuscular HGB conc (t est code = mean corpuscular HGB conc) 33.2 g/dL 31.5-36.2 red cell distribution width (test code = red cell distribution width) 11.2 % 11.5-15.5 L Platelets [#/volume] in Bloo d (test code = 46645-1) 261 K/uL 137-338 Platelet mean volume [Entiti c volume] in Blood (test code = 53755-5) 9.0 fL 8.4-11.8 Neutrophils.band form/100 leukocytes in Blood (test code = 22467-6) 67.1 % 44.4-80.1 Lymphocytes/100 leukocytes i n Body fluid (test code = 84551-1) 24.5 % 10.0-50.0 Monocytes/100 leukocytes in Blood by Automated count (test code = 5905-5) 6.1 % 3.6-12.04 Eosinophils/100 leukocytes i n Blood by Automated count (test code = 713-8) 0.4 % 0.0-5.41 Basophils/100 leukocytes in Unspecified specimen (test code = 84300-7) 1.9 % 0.0-0.79 [facility]different[facility] panel, [id number] 12:57:00 NeutrophilsLymphocyteMonocytePlatelet EstimatePlatelet MorphologyMataBeacham Memorial HospitalComprehensive metabolic 2000 panel - Serum or [id number] 12:57:00* Test Item Value Reference Range Interpretation [...] (test code = 6768-6) 71 U/L 35-105 [facility] GroupUrinalysis macro (dipstick) panel - [id number] 12:22:43* Test Item Value Reference Range Interpretation Comme nts Leukocytes (test code = Leukocytes) Trace Nitrite (test code = Nitrite) positive Urobilinogen (test code = Urobilinogen) 8 Protein (test code = Protein) 100 pH (test code = pH) 6.0 Blood (test code = Blood) Negative Specific [place] (test code = Specific [place]) 1.020 Ketone (test code = Ketone) Large (80) Bilirubin (test code = Bilirubin) Large Glucose (test code = Glucose) Negative Appearance (test code = Appearance) Clear Color (test code = Color) Dark Yellow [facility] HospitalUrinalysis macro (dipstick) panel - [id number] 12:22:43* Test Item Value Reference Range Interpretation Comme nts Leukocytes (test code = Leukocytes) Trace Nitrite (test code = Nitrite) positive Urobilinogen (test code = Urobilinogen) 8 Protein (test code = Protein) 100 pH (test code = pH) 6.0 Blood (test code = Blood) Negative Specific [place] (test code = Specific [place]) 1.020 Ketone (test code = Ketone) Large (80) Bilirubin (test code = Bilirubin) Large Glucose (test code = Glucose) Negative Appearance (test code = Appearance) Clear Color (test code = Color) Dark Yellow [facility] HospitalUrinalysis macro (dipstick) panel - [id number] 12:22:43* Test Item Value Reference Range Interpretation Comme nts Leukocytes (test code = Leukocytes) Trace Nitrite (test code = Nitrite) positive Urobilinogen (test code = Urobilinogen) 8 Protein (test code = Protein) 100 pH (test code = pH) 6.0 Blood (test code = Blood) Negative Specific [place] (test code = Specific [place]) 1.020 Ketone (test code = Ketone) Large (80) Bilirubin (test code = Bilirubin) Large Glucose (test code = Glucose) Negative Appearance (test code = Appearance) Clear Color (test code = Color) Dark Yellow [facility] HospitalUrinalysis macro (dipstick) panel - [id number] 12:22:43* Test Item Value Reference Range Interpretation Comme nts Leukocytes (test code = Leukocytes) Trace Nitrite (test code = Nitrite) positive Urobilinogen (test code = Urobilinogen) 8 Protein (test code = Protein) 100 pH (test code = pH) 6.0 Blood (test code = Blood) Negative Specific [place] (test code = Specific [place]) 1.020 Ketone (test code = Ketone) Large (80) Bilirubin (test code = Bilirubin) Large Glucose (test code = Glucose) Negative Appearance (test code = Appearance) Clear Color (test code = Color) Dark Yellow [facility] HospitalUrinalysis macro (dipstick) panel - [id number] 12:22:43* Test Item Value Reference Range Interpretation Comme nts Leukocytes (test code = Leukocytes) Trace Nitrite (test code = Nitrite) positive Urobilinogen (test code = Urobilinogen) 8 Protein (test code = Protein) 100 pH (test code = pH) 6.0 Blood (test code = Blood) Negative Specific [place] (test code = Specific [place]) 1.020 Ketone (test code = Ketone) Large (80) Bilirubin (test code = Bilirubin) Large Glucose (test code = Glucose) Negative Appearance (test code = Appearance) Clear Color (test code = Color) Dark Yellow [facility] HospitalHemoglobin and Hematocrit panel - [id number] 06:06:00* Test Item Value Reference Range Interpretation [...] [facility] HospitalHemoglobin and Hematocrit panel - [id number] 06:06:00* Test Item Value Reference Range Interpretation [...] [facility] HospitalHemoglobin and Hematocrit panel - [id number] 06:06:00* Test Item Value Reference Range Interpretation Comme [facility] Hemoglobin [Mass/volume] in Blood (test code = [...] [facility] HospitalHemoglobin and Hematocrit panel - [id number] 08:02:00* Test Item Value Reference Range Interpretation [...] [facility] HospitalHemoglobin and Hematocrit panel - [id number] 08:02:00* Test Item Value Reference Range Interpretation [...] [facility] HospitalH[facility]oglobin and Hematocrit panel - [id number] 08:02:00* Test Item Value Reference Range Interpretation [...] 6768-6) 48 U/L 35-105 [facility] HospitalCB W Auto Differential panel - [id number] 02:57:00 * Test Item Value Reference Range Interpretation Comme nts white blood count (test code = white blood count) 5.1 K/uL 4.0-11.5 red blood count (test code = red blood count) 4.29 M/uL 3.80-5.20 Hemoglobin [Mass/volume] in Blood (test code = 718-7) 14.0 g/dL 10.5-15.7 hematocrit (test code = hematocrit) 41.3 % 34.0-50.0 Erythrocyte mean corpuscular volume [Entitic volume] (test code = 16927-3) 96.3 fL 78-98 Erythrocyte mean corpuscular hemoglobin [Entitic mass] (test code = 97243-7) 32.6 pg 26.2-33.4 mean corpuscular HGB conc (t est code = mean corpuscular HGB conc) 33.9 g/dL 31.5-36.2 red cell distribution width (test code = red cell distribution width) 10.3 % 11.5-15.5 L Platelets [#/volume] in Bloo d (test code = 86346-5) 216 K/uL 137-338 Platelet mean volume [Entiti c volume] in Blood (test code = 61608-3) 9.2 fL 8.4-11.8 Neutrophils.band form/100 leukocytes in Blood (test code = 28079-3) 69.8 % 44.4-80.1 Lymphocytes/100 leukocytes i n Body fluid (test code = 76156-2) 22.0 % 10.0-50.0 Monocytes/100 leukocytes in Blood by Automated count (test code = 5905-5) 6.1 % 3.6-12.04 Eosinophils/100 leukocytes i n Blood by Automated count (test code = 713-8) 0.3 % 0.0-5.41 Basophils/100 leukocytes in Blood by Automated count (test code = 706-2) 1.8 % 0.0-0.79 H [facility]different[facility] panel, [id number] 02:57:00 NeutrophilsBandLymphocyteAtypical LymphMonocyteEosinophilBasophilPlatelet EstimatePlatelet MorphologyPoikilocytosisTarget CellsHypersegmented PolysRouleauToxic VacuolationSmudge CellsMataBeacham Memorial HospitalComprehensive metabolic 2000 panel - Serum or [id number] 02:57:00* Test Item Value Reference Range Interpretation [...] 6768-6) 57 U/L 35-105 [facility] HospitalCB W Auto Differential panel - [id number] 02:57:00 * Test Item Value Reference Range Interpretation Comme nts white blood count (test code = white blood count) 5.1 K/uL 4.0-11.5 red blood count (test code = red blood count) 4.29 M/uL 3.80-5.20 Hemoglobin [Mass/volume] in Blood (test code = 718-7) 14.0 g/dL 10.5-15.7 hematocrit (test code = hematocrit) 41.3 % 34.0-50.0 Erythrocyte mean corpuscular volume [Entitic volume] (test code = 85427-4) 96.3 fL 78-98 Erythrocyte mean corpuscular hemoglobin [Entitic mass] (test code = 81555-8) 32.6 pg 26.2-33.4 mean corpuscular HGB conc (t est code = mean corpuscular HGB conc) 33.9 g/dL 31.5-36.2 red cell distribution width (test code = red cell distribution width) 10.3 % 11.5-15.5 L Platelets [#/volume] in Bloo d (test code = 18120-0) 216 K/uL 137-338 Platelet mean volume [Entiti c volume] in Blood (test code = 63228-3) 9.2 fL 8.4-11.8 Neutrophils.band form/100 leukocytes in Blood (test code = 88714-6) 69.8 % 44.4-80.1 Lymphocytes/100 leukocytes i n Body fluid (test code = 12278-2) 22.0 % 10.0-50.0 Monocytes/100 leukocytes in Blood by Automated count (test code = 5905-5) 6.1 % 3.6-12.04 Eosinophils/100 leukocytes i n Blood by Automated count (test code = 713-8) 0.3 % 0.0-5.41 Basophils/100 leukocytes in Blood by Automated count (test code = 706-2) 1.8 % 0.0-0.79 H [facility]different[facility] panel, [id number] 02:57:00 NeutrophilsBandLymphocyteAtypical LymphMonocyteEosinophilBasophilPlatelet EstimatePlatelet MorphologyPoikilocytosisTarget CellsHypersegmented PolysRouleauToxic VacuolationSmudge CellsMataBeacham Memorial HospitalComprehensive metabolic 2000 panel - Serum or [id number] 02:57:00* Test Item Value Reference Range Interpretation [...] 6768-6) 57 U/L 35-105 [facility] HospitalCB W Auto Differential panel - [id number] 02:57:00 * Test Item Value Reference Range Interpretation Comme nts white blood count (test code = white blood count) 5.1 K/uL 4.0-11.5 red blood count (test code = red blood count) 4.29 M/uL 3.80-5.20 Hemoglobin [Mass/volume] in Blood (test code = 718-7) 14.0 g/dL 10.5-15.7 hematocrit (test code = hematocrit) 41.3 % 34.0-50.0 Erythrocyte mean corpuscular volume [Entitic volume] (test code = 47877-2) 96.3 fL 78-98 Erythrocyte mean corpuscular hemoglobin [Entitic mass] (test code = 33640-1) 32.6 pg 26.2-33.4 mean corpuscular HGB conc (t est code = mean corpuscular HGB conc) 33.9 g/dL 31.5-36.2 red cell distribution width (test code = red cell distribution width) 10.3 % 11.5-15.5 L Platelets [#/volume] in Bloo d (test code = 23154-0) 216 K/uL 137-338 Platelet mean volume [Entiti c volume] in Blood (test code = 92427-4) 9.2 fL 8.4-11.8 Neutrophils.band form/100 leukocytes in Blood (test code = 15821-1) 69.8 % 44.4-80.1 Lymphocytes/100 leukocytes i n Body fluid (test code = 62555-9) 22.0 % 10.0-50.0 Monocytes/100 leukocytes in Blood by Automated count (test code = 5905-5) 6.1 % 3.6-12.04 Eosinophils/100 leukocytes i n Blood by Automated count (test code = 713-8) 0.3 % 0.0-5.41 Basophils/100 leukocytes in Blood by Automated count (test code = 706-2) 1.8 % 0.0-0.79 H [facility]different[facility] panel, [id number] 02:57:00 NeutrophilsBandLymphocyteAtypical LymphMonocyteEosinophilBasophilPlatelet EstimatePlatelet MorphologyPoikilocytosisTarget CellsHypersegmented PolysRouleauToxic VacuolationSmudge CellsMataBeacham Memorial HospitalComprehensive metabolic 2000 panel - Serum or [id number] 02:57:00* Test Item Value Reference Range Interpretation [...] (test code = 6768-6) 57 U/L 35-105 [facility] W Auto Differential panel - [id number] 07:30:00 * Test Item Value Reference Range Interpretation Comme nts white blood count (test code = white blood count) 5.0 K/uL 4.0-11.5 red blood count (test code = red blood count) 3.92 M/uL 3.80-5.20 Hemoglobin [Mass/volume] in Blood (test code = 718-7) 12.9 g/dL 10.5-15.7 hematocrit (test code = hematocrit) 38.7 % 34.0-50.0 Erythrocyte mean corpuscular volume [Entitic volume] (test code = 46726-5) 98.7 fL 78-98 H Erythrocyte mean corpuscular hemoglobin [Entitic mass] (test code = 53723-5) 33.0 pg 26.2-33.4 mean corpuscular HGB conc (t est code = mean corpuscular HGB conc) 33.4 g/dL 31.5-36.2 red cell distribution width (test code = red cell distribution width) 11.3 % 11.5-15.5 L Platelets [#/volume] in Bloo d (test code = 57198-1) 207 K/uL 137-338 Platelet mean volume [Entiti c volume] in Blood (test code = 68686-2) 7.7 fL 8.4-11.8 L Neutrophils.band form/100 leukocytes in Blood (test code = 52633-2) 54.8 % 44.4-80.1 Lymphocytes/100 leukocytes i n Body fluid (test code = 72770-9) 35.5 % 10.0-50.0 Monocytes/100 leukocytes in Blood by Automated count (test code = 5905-5) 6.5 % 3.6-12.04 Eosinophils/100 leukocytes i n Blood by Automated count (test code = 713-8) 1.4 % 0.0-5.41 Basophils/100 leukocytes in Blood by Automated count (test code = 706-2) 1.7 % 0.0-0.79 H [facility] Groupdifferent[facility] panel, [id number] 07:30:00 NeutrophilsBandLymphocyteMonocytePlatelet EstimateMataBeacham Memorial HospitalRubella virus IgG Ab [Titer] in [id number] 07:30:00* Test Item Value Reference Range Interpretation Comme nts Rubella virus IgG Ab [Units/volume] in Serum by Immunoassay (test code = 5334-8) 106.7 [IU]/mL [facility] GroupHIV 1+2 Ab [Presence] in [id number] 07:30:00HIV P24 AgHIV-1/2 AbMatagorda Medical GroupABO & Rh group [Type] in [id number] 07:30:00* Test Item Value Reference Range Interpretation Comme nts Rh [Type] in Blood (test cod e = 83320-3) 4+ ABO and Rh group panel - Blo od (test code = 88322-9) Ab positive [facility] GroupBlood group antibody screen [Presence] in Serum or Plasma 2019-01-26 07:30:00* Test Item Value Reference Range Interpretation Comme nts Blood group antibody screen [Presence] in Serum or Plasma (test code = 890-4) negative [facility] GroupReagin Ab [Presence] in Serum by [id number] 07:30:00* Test Item Value Reference Range Interpretation Comme nts Reagin Ab [Presence] in Seru m by RPR (test code = 66928-3) nonreactive nonreactive [facility] GroupHepatitis B virus surface Ag [Presence] in Serum 2019-01-26 07:30:00* Test Item Value Reference Range Interpretation Comme nts .hepatitis B surface antigen (test code = .hepatitis B surface antigen) negative negative [facility] GroupBacteria identified in Urine by [id number] 07:30:00* Test Item Value Reference Range Interpretation Comme nts Bacteria identified in Urine by Culture (test code = 630-4) no growth at 48 hrs. [facility] GroupCBC W Auto Differential panel - [id number] 07:30:00 * Test Item Value Reference Range Interpretation Comme nts white blood count (test code = white blood count) 5.0 K/uL 4.0-11.5 red blood count (test code = red blood count) 3.92 M/uL 3.80-5.20 Hemoglobin [Mass/volume] in Blood (test code = 718-7) 12.9 g/dL 10.5-15.7 hematocrit (test code = hematocrit) 38.7 % 34.0-50.0 Erythrocyte mean corpuscular volume [Entitic volume] (test code = 10302-4) 98.7 fL 78-98 H Erythrocyte mean corpuscular hemoglobin [Entitic mass] (test code = 49438-0) 33.0 pg 26.2-33.4 mean corpuscular HGB conc (t est code = mean corpuscular HGB conc) 33.4 g/dL 31.5-36.2 red cell distribution width (test code = red cell distribution width) 11.3 % 11.5-15.5 L Platelets [#/volume] in Bloo d (test code = 95089-6) 207 K/uL 137-338 Platelet mean volume [Entiti c volume] in Blood (test code = 06078-8) 7.7 fL 8.4-11.8 L Neutrophils.band form/100 leukocytes in Blood (test code = 02035-3) 54.8 % 44.4-80.1 Lymphocytes/100 leukocytes i n Body fluid (test code = 44535-1) 35.5 % 10.0-50.0 Monocytes/100 leukocytes in Blood by Automated count (test code = 5905-5) 6.5 % 3.6-12.04 Eosinophils/100 leukocytes i n Blood by Automated count (test code = 713-8) 1.4 % 0.0-5.41 Basophils/100 leukocytes in Blood by Automated count (test code = 706-2) 1.7 % 0.0-0.79 H [facility]differential panel, [id number] 07:30:00 NeutrophilsBandLymphocyteMonocytePlatelet EstimateMaEast Mississippi State HospitalRubella virus IgG Ab [Titer] in [id number] 07:30:00* Test Item Value Reference Range Interpretation Comme nts Rubella virus IgG Ab [Units/volume] in Serum by Immunoassay (test code = 5334-8) 106.7 [IU]/mL [facility] HospitalHIV 1+2 Ab [Presence] in [id number] 07:30:00HIV P24 AgHIV-1/2 AbMaEast Mississippi State HospitalABO & Rh group [Type] in [id number] 07:30:00* Test Item Value Reference Range Interpretation Comme nts Rh [Type] in Blood (test cod e = 14967-1) 4+ ABO and Rh group panel - Blo od (test code = 16716-5) Ab positive [facility] GroupBlood group antibody screen [Presence] in Serum or Plasma 2019-01-26 07:30:00* Test Item Value Reference Range Interpretation Comme nts Blood group antibody screen [Presence] in Serum or Plasma (test code = 890-4) negative [facility] GroupReagin Ab [Presence] in Serum by [id number] 07:30:00* Test Item Value Reference Range Interpretation Comme nts Reagin Ab [Presence] in Seru m by RPR (test code = 39385-2) nonreactive nonreactive [facility] GroupHepatitis B virus surface Ag [Presence] in Serum 2019-01-26 07:30:00* Test Item Value Reference Range Interpretation Comme nts .hepatitis B surface antigen (test code = .hepatitis B surface antigen) negative negative [facility] GroupBacteria identified in Urine by Muosuoq8393-31-76 07:30:00* Test Item Value Reference Range Interpretation Comme nts Bacteria identified in Urine by Culture (test code = 630-4) no growth at 48 hrs. [facility] GroupCBC W Auto Differential panel - [id number] 07:30:00 * Test Item Value Reference Range Interpretation Comme nts white blood count (test code = white blood count) 5.0 K/uL 4.0-11.5 red blood count (test code = red blood count) 3.92 M/uL 3.80-5.20 Hemoglobin [Mass/volume] in Blood (test code = 718-7) 12.9 g/dL 10.5-15.7 hematocrit (test code = hematocrit) 38.7 % 34.0-50.0 Erythrocyte mean corpuscular volume [Entitic volume] (test code = 32049-0) 98.7 fL 78-98 H Erythrocyte mean corpuscular hemoglobin [Entitic mass] (test code = 77758-8) 33.0 pg 26.2-33.4 mean corpuscular HGB conc (t est code = mean corpuscular HGB conc) 33.4 g/dL 31.5-36.2 red cell distribution width (test code = red cell distribution width) 11.3 % 11.5-15.5 L Platelets [#/volume] in Bloo d (test code = 08723-7) 207 K/uL 137-338 Platelet mean volume [Entiti c volume] in Blood (test code = 01505-5) 7.7 fL 8.4-11.8 L Neutrophils.band form/100 leukocytes in Blood (test code = 21518-3) 54.8 % 44.4-80.1 Lymphocytes/100 leukocytes i n Body fluid (test code = 83089-4) 35.5 % 10.0-50.0 Monocytes/100 leukocytes in Blood by Automated count (test code = 5905-5) 6.5 % 3.6-12.04 Eosinophils/100 leukocytes i n Blood by Automated count (test code = 713-8) 1.4 % 0.0-5.41 Basophils/100 leukocytes in Blood by Automated count (test code = 706-2) 1.7 % 0.0-0.79 H [facility] Groupdifferential panel, [id number] 07:30:00 NeutrophilsBandLymphocyteMonocytePlatelet EstimateMatagorda Medical GroupRubella virus Ab [Titer] in Skbvj3619-09-13 07:30:00* Test Item Value Reference Range Interpretation Comme nts Rubella virus IgG Ab [Units/volume] in Serum by Immunoassay (test code = 5334-8) 106.7 [IU]/mL [facility] GroupHIV 1+2 Ab [Presence] in [id number] 07:30:00HIV P24 AgHIV-1/2 AbMatarda Medical GroupABO & Rh group [Type] in Rmzeb0545-54-83 07:30:00* Test Item Value Reference Range Interpretation Comme nts Rh [Type] in Blood (test cod e = 36066-2) 4+ ABO and Rh group panel - Blo od (test code = 08097-1) Ab positive [facility] GroupBlood group antibody screen [Presence] in Serum or Plasma 2019-01-26 07:30:00* Test Item Value Reference Range Interpretation Comme nts Blood group antibody screen [Presence] in Serum or Plasma (test code = 890-4) negative [facility] GroupReagin Ab [Presence] in Serum by [id number] 07:30:00* Test Item Value Reference Range Interpretation Comme nts Reagin Ab [Presence] in Seru m by RPR (test code = 81136-0) nonreactive nonreactive [facility] HospitalHepatitis B virus surface Ag [Presence] in Serum 2019-01-26 07:30:00* Test Item Value Reference Range Interpretation Comme nts .hepatitis B surface antigen (test code = .hepatitis B surface antigen) negative negative [facility] HospitalBacteria identified in Urine by [id number] 07:30:00* Test Item Value Reference Range Interpretation Comme nts Bacteria identified in Urine by Culture (test code = 630-4) no growth at 48 hrs. [facility] HospitalChoriogonadotropin.beta subunit [Units/volume] in Serum or [id number] 02:05:00* Test Item Value Reference Range Interpretation Comme nts HCG quantitative (test code = HCG quantitative) 4590.0 mIU/mL 0-5 H [facility] HospitalChoriogonadotropin.beta subunit [Units/volume] in Serum or [id number] 02:05:00* Test Item Value Reference Range Interpretation Comme nts HCG quantitative (test code = HCG quantitative) 4590.0 mIU/mL 0-5 H [facility] HospitalChoriogonadotropin.beta subunit [Units/volume] in Serum or Hgqsfq8855-34-30 02:05:00* Test Item Value Reference Range Interpretation Comme nts HCG quantitative (test code = HCG quantitative) 4590.0 mIU/mL 0-5 H [facility] HospitalCB W Auto Differential panel - [id number] 11:00:00 * Test Item Value Reference Range Interpretation Comme nts white blood count (test code = white blood count) 4.9 K/uL 4.0-11.5 red blood count (test code = red blood count) 4.02 M/uL 3.80-5.20 Hemoglobin [Mass/volume] in Blood (test code = 718-7) 13.0 g/dL 10.5-15.7 hematocrit (test code = hematocrit) 40.1 % 34.0-50.0 Erythrocyte mean corpuscular volume [Entitic volume] (test code = 95007-1) 99.7 fL 78-98 H Erythrocyte mean corpuscular hemoglobin [Entitic mass] (test code = 27040-0) 32.4 pg 26.2-33.4 mean corpuscular HGB conc (t est code = mean corpuscular HGB conc) 32.5 g/dL 31.5-36.2 red cell distribution width (test code = red cell distribution width) 11.4 % 11.5-15.5 L Platelets [#/volume] in Bloo d (test code = 33438-2) 212 K/uL 137-338 Platelet mean volume [Entiti c volume] in Blood (test code = 99777-5) 8.4 fL 8.4-11.8 Neutrophils.band form/100 leukocytes in Blood (test code = 37541-9) 53.6 % 44.4-80.1 Lymphocytes/100 leukocytes i n Body fluid (test code = 91267-0) 37.4 % 10.0-50.0 Monocytes/100 leukocytes in Blood by Automated count (test code = 5905-5) 5.5 % 3.6-12.04 Eosinophils/100 leukocytes i n Blood by Automated count (test code = 713-8) 1.9 % 0.0-5.41 Basophils/100 leukocytes in Blood by Automated count (test code = 706-2) 1.6 % 0.0-0.79 H [facility] Groupdifferential panel, [id number] 11:00:00 NeutrophilsBandLymphocyteMonocyteEosinophilBasophilPlatelet EstimatePlatelet MorphologyPolychromasiaHypochromasiaPoikilocytosisBasophilic StipplingAnisocytosisMicrocytosisMacrocytosisOvalocytesStomatocyteBurr CellsAcanthocytesMatagorda Medical GroupReagin Ab [Presence] in Serum by RPR 2019-01-03 11:00:00* Test Item Value Reference Range Interpretation Comme nts Reagin Ab [Presence] in Seru m by RPR (test code = 06907-4) nonreactive nonreactive [facility] HospitalComprehensive metabolic [...] [facility] HospitalHIV 1+2 Ab [Presence] in [id number] 11:00:00HIV P24 AgHIV-1/2 AbJefferson Davis Community HospitalHepatitis B virus surface Ag [Presence] in Wlqgx7616-96-81 11:00:00* Test Item Value Reference Range Interpretation Comme nts .hepatitis B surface antigen (test code = .hepatitis B surface antigen) negative negative [facility] Notes Date/Time Note Provider Source 2024-05-24 15:02:47 Chief Complaint Patient presents with Consultation Consultation discuss migraines and headaches Sadiq Jenkins CMA II T [facility] 2024-05-10 15:04:39 Chief Complaint Patient presents with Follow-up Follow up for anxiety and depression. Wants to get checked for STD Althea Zarate LVN T [facility] 2024-02-24 09:24:06 Chief Complaint Patient presents with Anxiety Follow up on anxiety and depression. She states that she feels the same. The medication for headaches are working well. Marce Castellano MA II Marce Castellano MA, II [facility] 2024-01-25 13:20:53 Chief Complaint Patient presents with Headache Headaches that she's had for years. No nausea or vomiting. The pain is either on the right side or the left side. No visual disturbance. No prescribed medications. OTC meds are no longer working. Marce Castellano MA II [facility] 2023-12-07 14:20:25 Chief Complaint Patient presents with Cough Cough for 1 month Marce Castellano MA II RD CLERK Marce Castellano MA, II [facility] 2019-08-29 21:34:00 [facility] OB Disch REPORT#:[id number] REPORT STATUS: Signed DATE:08/29/19 TIME: 2133 PATIENT: ANJELICA NAVARRO UNIT #: [id number] ROOM/BED: : 90 AGE: 29 SEX: F ATTEND: Isaiah Chase MD ADM AUTHOR: Isaiah Chase MD * ALL edits or amendments must be made on the electronic/computer document * Subjective Subjective Patient reports: Patient [...] speech Abdomen: post gravid, soft, no abnormal tenderness Incision site: well approximated edges, nicolle intact, dry, no drainage, no inflammation Uterus: involution appropriate, non-tender Fundus: firm, below the umbilicus, non-tender Discharge Summary Discharge Summary Hospital course: nml postop/postpart care, ADMITTED FOR IUGR, received celestone and she was watched inpatient due to high sd and abnormal dopplers, also periodic prolonged decels, then had primary cd Plan: routine care, discharge tomorrow Discharge meds: Continue taking these medications: SCOPOLAMINE [...] blood loss due to surgery at 2137 RPT #:[id number] END OF REPORT [facility] 2019-08-29 19:07:00 [id number] [facility] '[place] [address] PATIENT NAME: ANJELICA NAVARRO ADMIT DATE: 08/02/19 ACCOUNT NO: [id number] ROOM NO: AGE: 29 SEX: F ADMITTING PHYSICIAN: Isaiah [...] section via Pfannenstiel. SURGEON: Isaiah Chase MD RECEIVING WEIGHER: Cyndi Jarvis SA COMPLICATIONS: None. ESTIMATED BLOOD LOSS: 600 mL. INTRAVENOUS FLUIDS: 1000 mL LR. URINE OUTPUT: Clear at the end of the procedure. FINDINGS: Male , cephalic presentation, Apgars 8 and 9. Weight 1920 grams, to NICU. Placenta 3-vessel cord intact. Uterus, tubes, and ovaries looked normal. PROCEDURE IN DETAIL: After the risks, benefits, alternatives, and the nature of the procedure were discussed with the patient at length. She voiced understanding, all her questions were answered to her satisfaction and signed the consent. She was taken to the operating room where spinal anesthesia was found to be adequate. She was then prepared and draped in the normal sterile fashion in the dorsal supine position with a leftward tilt. A Pfannenstiel skin incision was done with a scalpel and carried down to the underlying layer of fascia, which was incised in midline and extended laterally with Gale scissors. The fascial borders were serially grasped with Brandon clamps, elevated and the underlying layer of muscles with dissected off bluntly. The muscles were in the midline as well as peritoneum. The bladder blade was inserted. PATIENT NAME: ANJELICA NAVARRO The vesicouterine peritoneum was entered with Metzenbaum scissors and extended laterally. The bladder flap was created. Bladder blade was reinserted and the lower segment of the uterus was incised in the midline and extended laterally with the bandage scissors. Amniotomy was done with clear fluid obtained. The head was delivered atraumatically followed by the rest of the body. Nose and mouth were suctioned. Cord clamped and cut. Baby handed off to the awaiting baby care team. Placenta was delivered spontaneously. The uterus was exteriorized and cleared of all clots and debris. The uterine incision was closed with 1.0 chromic in usual locked fashion. Another layer of the same suture was placed to obtain excellent hemostasis. The uterus was returned to the abdomen. The gutters were cleared of all clots and debris. Excellent hemostasis was noted. The abdominal muscles were reapproximated with interrupted 2.0 Vicryl stitches incorporating the underlying layer of peritoneum. Excellent hemostasis was noted. The fascia was closed with 0 Vicryl in a running fashion. Excellent hemostasis was noted. Irrigation with warm normal saline was done and excellent hemostasis was noted. The skin was closed with nicolle. Excellent hemostasis was noted. All counts were correct. The patient was taken to the recovery room awake and stable condition. PATHOLOGY: Placenta. Dictated By: Isaiah Chase MD WT: OP:FVIVI/SHANIA/ROMAN Conf#: [id number]/DID#: [id number] Authenticated by Isaiah Chase MD On 09/27/2019 06:43:29 AM at 0643 PATIENT NAME: ANJELICA NAVARRO [facility] 2019-08-28 21:20:00 [facility] ([facility]) OB Postpart Progr Note REPORT#:[id number] REPORT STATUS: Signed DATE:08/28/19 TIME: 2119 PATIENT: ANJELICA NAVARRO UNIT #: [id number] ROOM/BED: : 90 AGE: 29 SEX: F ATTEND: Isaiah Chase MD ADM AUTHOR: Isaiah Chase MD * ALL edits or amendments must be made on the electronic/computer document * Subjective Subjective Patient reports: Patient reports: Yes: normal lochia, pain management effective, tolerating po well, voiding well, tolerating ambulation, flatus. No: complaints. Objective General VS: Vital Signs Date Temp [...] Plan Assessment: nml progress Plan: routine care at 2120 RPT #:[id number] END OF REPORT [facility] 2019-08-27 16:35:00 [facility] ([facility]) OB Postpart Progr Note REPORT#:[id number] REPORT STATUS: Signed DATE:08/27/19 TIME: 163 PATIENT: ANJELICA NAVARRO UNIT #: [id number] ROOM/BED: : 90 AGE: 29 SEX: F ATTEND: Isaiah Chase MD ADM AUTHOR: Isaiah Chase MD * ALL edits or amendments must be made on the electronic/computer document * Subjective Subjective Patient reports: Patient reports: Yes: normal lochia, pain management effective, tolerating po well, tolerating ambulation, flatus. No: [...] Plan Assessment: nml progress Plan: routine care at 1635 RPT #:[id number] END OF REPORT [facility] 2019-08-25 20:54:00 [facility] OB Antepartum Prog Note REPORT#:[id number] REPORT STATUS: Signed DATE:08/25/19 TIME: 2053 PATIENT: ANJELICA NAVARRO UNIT #: [id number] ROOM/BED: [address] : 90 AGE: 29 SEX: F ATTEND: Isaiah Chase MD ADM AUTHOR: Isaiah Chase MD * ALL edits or amendments must be made on the electronic/computer document * Subjective Subjective Patient reports: Patient [...] 18 110-116/69 84.0-87.0 Patient Weight Weight (lb): 128 Weight (oz): [...] TESTING, otherwise in am at 2100 RPT #:[id number] END OF REPORT [facility] 2019-08-24 20:53:00 [facility] OB Antepartum Prog Note REPORT#:[id number] REPORT STATUS: Signed DATE:08/24/19 TIME: 2052 PATIENT: ANJELICA NAVARRO UNIT #: [id number] ROOM/BED: [address] : 90 AGE: 29 SEX: F ATTEND: Isaiah Chase MD ADM AUTHOR: Isaiah Chase MD * ALL edits or amendments must be made on the electronic/computer document * Subjective Subjective Patient reports: Patient reports: Yes normal movement, No no complaints, No abdominal pain, No vaginal bleeding, No leaking fluid, No contractions Comments: SEEN AROUND 8AM Objective General VS: Last Documented: Result Date Time Temp 98.2 08/24 09 Resp 18 08/24 0916 B/P Mean 93.0 08/24 0916 B/P 120/76 08/24 0916 Pulse 84 08/24 09 Pulse Ox 97 08/23 0832 Vital Signs Date Temp Pulse Resp B/P B/P Mean Pulse Ox FiO2 08/23-08/24 98.1-98.2 74-84 16-18 100-120/65-76 77.0-93.0 Patient Weight Weight (lb): 128 [...] recovered well Diagnosis, Assessment Plan Diagnosis, Assessment Plan Assessment: IUP 35 3/7 WEEKS, IUGR, BOREDERLINE LOW NANCY, ELEVATED SD ON UA DOPPLERS Plan: continue current managmnt, betamethasone admin, surveillance, DELIVER FOR NON REASSURING TESTING, otherwise THIS WEDNESDAY at 2053 RPT #:[id number] END OF REPORT [facility] 2019-08-23 20:03:00 [facility] OB Antepartum Prog Note REPORT#:[id number] REPORT STATUS: Signed DATE:08/23/19 TIME: 2002 PATIENT: ANJELICA NAVARRO UNIT #: [id number] ROOM/BED: [address] : 90 AGE: 29 SEX: F ATTEND: Isaiah Chase MD ADM AUTHOR: Isaiah Chase MD * ALL edits or amendments must be made on the electronic/computer document * Subjective Subjective Patient reports: Patient [...] 116-131/72-96 86.0-108.0 97-99 Patient Weight Weight (lb): 128 Weight [...] recovered well Diagnosis, Assessment Plan Diagnosis, Assessment Plan Assessment: IUP 35 2/7 WEEKS, IUGR, BOREDERLINE LOW NANCY, ELEVATED SD ON UA DOPPLERS Plan: continue current managmnt, betamethasone admin, surveillance, DELIVER FOR NON REASSURING TESTING, otherwise THIS WEDNESDAY at 2004 RPT #:[id number] END OF REPORT [facility] 2019-08-22 17:12:00 [facility] ([facility]) OB Antepartum Prog Note REPORT#:[id number] REPORT STATUS: Signed DATE:08/22/19 TIME: 171 PATIENT: ANJELICA NAVARRO UNIT #: [id number] ROOM/BED: [address] : 90 AGE: 29 SEX: F ATTEND: Isaiah Chase MD ADM AUTHOR: Isaiah Chase MD * ALL edits or amendments must be made on the electronic/computer document * Subjective Subjective Patient reports: Patient [...] recovered well Diagnosis, Assessment Plan Diagnosis, Assessment Plan Assessment: IUP 35 1/7 WEEKS, IUGR, BOREDERLINE LOW NANCY, ELEVATED SD ON UA DOPPLERS Plan: continue current managmnt, betamethasone admin, surveillance, DELIVER FOR NON REASSURING TESTING, otherwise THIS WEDNESDAY at 1713 RPT #:[id number] END OF REPORT [facility] 2019-08-21 12:42:00 [facility] ([facility]) OB Antepartum Prog Note REPORT#:[id number] REPORT STATUS: Signed DATE:08/21/19 TIME: 1242 PATIENT: ANJELICA NAVARRO UNIT #: [id number] ROOM/BED: [address] : 90 AGE: 29 SEX: F ATTEND: Isaiah Chase MD ADM AUTHOR: Cuco Cam MD * ALL edits or amendments must be made on the electronic/computer document * Subjective Subjective Patient reports: Patient [...] recovered well Diagnosis, Assessment Plan Diagnosis, Assessment Plan Free Text A P: IUP 35 0/7 WEEKS, , DEEDEE, IUGR, BOREDERLINE LOW NANCY, ELEVATED SD ON UA DOPPLERS DELIVER IN 6 DAYS. pt resistant to hep lock. i rec it. she will sign ama if she refuses Plan: continue current managmnt, betamethasone admin, surveillance, DELIVER FOR NON REASSURING TESTING, otherwise at 35- 36 weeks, scheduled for - per pt Dr rivera aware at 1424 RPT #:[id number] END OF REPORT [facility] 2019-08-20 12:53:00 [facility] OB Antepartum Prog Note REPORT#:[id number] REPORT STATUS: Signed DATE:08/20/19 TIME: 1253 PATIENT: ANJELICA NAVARRO UNIT #: [id number] ROOM/BED: [address] : 90 AGE: 29 SEX: F ATTEND: Isaiah Chase MD ADM AUTHOR: Vincent Rivera MD * ALL edits or amendments must be made on the electronic/computer document * Subjective Subjective Patient reports: Patient [...] recovered well Diagnosis, Assessment Plan Diagnosis, Assessment Plan Assessment: IUP 34 6/7 WEEKS, IUGR, BOREDERLINE LOW NANCY, ELEVATED SD ON UA DOPPLERS DELIVER IN 6 DAYS Plan: continue current managmnt, betamethasone admin, surveillance, DELIVER FOR NON REASSURING TESTING, otherwise at 35- 36 weeks at 1253 RPT #:[id number] END OF REPORT [facility] 2019-08-19 11:54:00 [facility] ([facility]) OB Antepartum Prog Note REPORT#:[id number] REPORT STATUS: Signed DATE:08/19/19 TIME: 1154 PATIENT: ANJELICA NAVARRO UNIT #: [id number] ROOM/BED: [facility] : 90 AGE: 29 SEX: F ATTEND: Isaiah Chase MD ADM AUTHOR: Vincent Rivera MD * ALL edits or amendments must be made on the electronic/computer document * Subjective Subjective Patient reports: Patient reports: No vaginal bleeding, No leaking fluid, No contractions, No normal movement Objective Physical Exam HEENT: [...] recovered well Diagnosis, Assessment Plan Diagnosis, Assessment Plan Assessment: IUP 34 5/7 WEEKS, IUGR, BOREDERLINE LOW NANCY, ELEVATED SD ON UA DOPPLERS Plan: continue current managmnt, betamethasone admin, surveillance, DELIVER FOR NON REASSURING TESTING, otherwise at 35- 36 weeks at 1155 RPT #:[id number] END OF REPORT [facility] 2019-08-18 18:02:00 [facility] ([facility]) OB Antepartum Prog Note REPORT#:[id number] REPORT STATUS: Signed DATE:08/18/19 TIME: 1801 PATIENT: ANJELICA NAVARRO UNIT #: [id number] ROOM/BED: [address] : 90 AGE: 29 SEX: F ATTEND: Isaiah Chase MD ADM AUTHOR: Isaiah Chase MD * ALL edits or amendments must be made on the electronic/computer document * Subjective Subjective Patient reports: Patient reports: Yes normal movement, No no complaints, No abdominal pain, No vaginal bleeding, No leaking fluid, No contractions Comments: SEEN AROUND 8AM Objective General VS: Last Documented: Result Date Time B/P Mean 86.0 08/18 959 B/P 113/69 08/18 959 Pulse 73 08/18 09 Pulse Ox 100 08/18 959 Resp 16 08/18 959 Temp 98.2 08/17 1923 Vital Signs Date Temp Pulse Resp B/P B/P Mean Pulse Ox FiO2 08/17-08/18 98.2 73-88 16 104-113/61-69 74.0-86.0 100 Patient Weight Weight (lb): 128 Weight [...] at 35- 36 weeks at 1802 RPT #:[id number] END OF REPORT [facility] 2019-08-17 21:38:00 [facility] ([facility]) OB Antepartum Prog Note REPORT#:[id number] REPORT STATUS: Signed DATE:08/17/19 TIME: 2137 PATIENT: ANJELICA NAVARRO UNIT #: [id number] ROOM/BED: [address] : 90 AGE: 29 SEX: F ATTEND: Isaiah Chase MD ADM AUTHOR: Isaiah Chase MD * ALL edits or amendments must be made on the electronic/computer document * Subjective Subjective Patient reports: Patient [...] recovered well Diagnosis, Assessment Plan Diagnosis, Assessment Plan Assessment: IUP 34 3/7 WEEKS, IUGR, BOREDERLINE LOW NANCY, ELEVATED SD ON UA DOPPLERS Plan: continue current managmnt, betamethasone admin, surveillance, DELIVER FOR NON REASSURING TESTING, otherwise at 35- 36 weeks at 2142 RPT #:[id number] END OF REPORT [facility] 2019-08-16 21:42:00 [facility] ([facility]) OB Antepartum Prog Note REPORT#:[id number] REPORT STATUS: Signed DATE:08/16/19 TIME: 2141 PATIENT: ANJELICA NAVARRO UNIT #: [id number] ROOM/BED: [address] : 90 AGE: 29 SEX: F ATTEND: Isaiah Chase MD ADM AUTHOR: Isaiah Chase MD * ALL edits or amendments must be made on the electronic/computer document * Subjective Subjective Patient reports: Patient [...] recovered well Diagnosis, Assessment Plan Diagnosis, Assessment Plan [...] at 35- 36 weeks at 2150 RPT #:[id number] END OF REPORT [facility] 2019-08-15 18:36:00 [facility] ([facility]) OB Antepartum Prog Note REPORT#:[id number] REPORT STATUS: Signed DATE:08/15/19 TIME: 1835 PATIENT: ANJELICA NAVARRO UNIT #: [id number] ROOM/BED: [address] : 90 AGE: 29 SEX: F ATTEND: Isaiah Chase MD ADM AUTHOR: Isaiah Chase MD * ALL edits or amendments must be made on the electronic/computer document * Subjective Subjective Patient reports: Patient reports: Yes normal movement, No no complaints, No abdominal pain, No vaginal bleeding, No leaking fluid, No contractions Comments: seen around 8am Objective General VS: Last Documented: Result Date Time B/P Mean 84.0 08/15 946 B/P 109/08/15 Pulse 81 08/15 946 Pulse Ox 100 08/15 946 Temp 98.2 08/15 946 Resp 16 08/15 946 Vital Signs Date Temp Pulse Resp B/P B/P Mean Pulse Ox FiO2 08/14-08/15 98.2-98.3 81-84 16 109-121/69-76 84.0-93.0 100 Patient Weight Weight (lb): 128 Weight [...] no major decels MCA DOPPLERS WITH CEREBROPLACENTAL REPERFUSION Plan: continue current managmnt, betamethasone admin, surveillance, DELIVER FOR NON REASSURING TESTING, oterwise at 35- 36 weeks at 1837 RPT #:[id number] END OF REPORT [facility] 2019-08-14 17:46:00 [facility] ([facility]) OB Antepartum Prog Note REPORT#:[id number] REPORT STATUS: Signed DATE:08/14/19 TIME: 174 PATIENT: ANJELICA NAVARRO UNIT #: [id number] ROOM/BED: [address] : 90 AGE: 29 SEX: F ATTEND: Isaiah Chase MD ADM AUTHOR: Isaiah Chase MD * ALL edits or amendments must be made on the electronic/computer document * Subjective Subjective Patient reports: Patient [...] recovered well Diagnosis, Assessment Plan Diagnosis, Assessment Plan Assessment: IUP 34 0/7 WEEKS, IUGR, BOREDERLINE LOW NANCY, ELEVATED SD ON UA DOPPLERS, decels better today MCADOPPLERS WITH CEREBROPLACENTAL REPERFUSION Plan: continue current managmnt, betamethasone admin, surveillance, DELIVER FOR NON REASSURING TESTING, oterwise at 35 weeks at 1746 RPT #:[id number] END OF REPORT [facility] 2019-08-13 11:12:00 [facility] ([facility]) OB Antepartum Prog Note REPORT#:[id number] REPORT STATUS: Signed DATE:08/13/19 TIME: 1112 PATIENT: ANJELICA NAVARRO UNIT #: [id number] ROOM/BED: [address] : 90 AGE: 29 SEX: F ATTEND: Isaiah Chase MD ADM AUTHOR: Vincent Rivera MD * ALL edits or amendments must be made on the electronic/computer document * Subjective Subjective Patient reports: Patient [...] recovered well Diagnosis, Assessment Plan Diagnosis, Assessment Plan Assessment: IUP 33 6/7 WEEKS, IUGR, BOREDERLINE LOW NANCY, ELEVATED SD ON UA DOPPLERS, decels better today MCADOPPLERS WITH CEREBROPLACENTAL REPERFUSION Plan: continue current managmnt, betamethasone admin, surveillance, DELIVER FOR NON REASSURING TESTING, oterwise at 35 weeks at 1112 RPT #:[id number] END OF REPORT [facility] 2019 12:38:00 [facility] ([facility]) OB Antepartum Prog Note REPORT#:[id number] REPORT STATUS: Signed DATE:08/12/19 TIME: 1238 PATIENT: ANJELICA NAVARRO UNIT #: [id number] [address] AGE: 29 SEX: F ATTEND: Isaiah Chase MD ADM AUTHOR: Vincent Rivera MD * ALL edits or amendments must be made on the electronic/computer document * Subjective Subjective Patient reports: Patient [...] recovered well Diagnosis, Assessment Plan Diagnosis, Assessment Plan Assessment: IUP 33 5/7 WEEKS, IUGR, BOREDERLINE LOW NANCY, ELEVATED SD ON UA DOPPLERS, decels better today MCADOPPLERS WITH CEREBROPLACENTAL REPERFUSION Plan: continue current managmnt, betamethasone admin, surveillance, DELIVER FOR NON REASSURING TESTING, oterwise at 35 weeks at 1239 RPT #:[id number] END OF REPORT [facility] 2019-08-11 21:53:00 [facility] OB Antepartum Prog Note REPORT#:[id number] REPORT STATUS: Signed DATE:08/11/19 TIME: 215 PATIENT: ANJELICA NAVARRO UNIT #: [id number] ROOM/BED: [facility] : 90 AGE: 28 SEX: F ATTEND: Isaiah Chase MD ADM AUTHOR: Isaiha Chase MD * ALL edits or amendments must be made on the electronic/computer document * Subjective Subjective Patient reports: Patient [...] recovered well Diagnosis, Assessment Plan Diagnosis, Assessment Plan Free Text A P: ULTRASOUND: CEPHALIC, EFW 1619 GMS AT 9%, NANCY 8 CM, BPP 8/8, POST PLAC, UA DOPPLERS WITH ELEVATED SD AT 4.7, MCA DOPPLERS C/W CEREBEROPLACENTAL REPERFUSION Assessment: IUP 33 4/7 WEEKS, IUGR, BOREDERLINE LOW NANCY, ELEVATED SD ON UA DOPPLERS, decels off and on, MCADOPPLERS WITH CEREBROPLACENTAL REPERFUSION Plan: continue current managmnt, betamethasone admin, surveillance, DELIVER FOR NON REASSURING TESTING, oterwise at 35 weeks at 2157 RPT #:[id number] END OF REPORT [facility] 2019-08-10 20:47:00 [facility]) OB Antepartum Prog Note REPORT#:[id number] REPORT STATUS: Signed DATE:08/10/19 TIME: 2046 PATIENT: ANJELICA NAVARRO UNIT #: [id number] ROOM/BED: [address] : 90 AGE: 28 SEX: F ATTEND: Isaiah Chase MD ADM AUTHOR: Isaiah Chase MD * ALL edits or amendments must be made on the electronic/computer document * Subjective Subjective Patient reports: Patient reports: Yes normal movement, No no complaints, No abdominal pain, No vaginal bleeding, No leaking fluid, No contractions Comments: seen around 6pm Objective General VS: Last Documented: Result Date Time B/P Mean 90.0 08/100 B/P 120/72 08/10 193 Pulse 86 08/10 [...] Plan Assessment: IUP 33 3/7 WEEKS, SEVERE IUGR, BOREDERLINE LOW NANCY, ELEVATED SD ON UA DOPPLERS Plan: continue current managmnt, betamethasone admin, surveillance, DELIVER FOR NON REASSURING TESTING at 2048 RPT #:[id number] END OF REPORT [facility] 2019-08-09 20:17:00 [facility]) OB Antepartum Prog Note REPORT#:[id number] REPORT STATUS: Signed DATE:08/09/19 TIME: 2016 PATIENT: ANJELICA NAVARRO UNIT #: [id number] ROOM/BED: [address] : 90 AGE: 28 SEX: F ATTEND: Isaiah Chase MD ADM AUTHOR: Isaiah Chase MD * ALL edits or amendments must be made on the electronic/computer document * Subjective Subjective Patient reports: Patient [...] Plan Assessment: IUP 33 2/7 WEEKS, SEVERE IUGR, BOREDERLINE LOW NANCY, ELEVATED SD ON UA DOPPLERS Plan: continue current managmnt, betamethasone admin, surveillance, DELIVER FOR NON REASSURING TESTING at 2017 RPT #:[id number] END OF REPORT [facility] 2019-08-08 13:06:00 [facility]) OB Antepartum Prog Note REPORT#:[id number] REPORT STATUS: Signed DATE:08/08/19 TIME: 1306 PATIENT: ANJELICA NAVARRO UNIT #: [id number] ROOM/BED: [address] : 90 AGE: 28 SEX: F ATTEND: Isaiah Chase MD ADM AUTHOR: Isaiah Chase MD * ALL edits or amendments must be made on the electronic/computer document * Subjective Subjective Patient reports: Patient [...] 110-129/59-71 81.0-92.0 99-100 Patient Weight Weight (lb): 128 Weight [...] Plan Assessment: IUP 33 1/7 WEEKS, SEVERE IUGR, BOREDERLINE LOW NANCY, ELEVATED SD ON UA DOPPLERS Plan: continue current managmnt, betamethasone admin, surveillance, DELIVER FOR NON REASSURING TESTING at 1308 RPT #:[id number] END OF REPORT [facility] 2019-08-07 20:27:00 [facility] ([facility]) OB Antepartum Prog Note REPORT#:[id number] REPORT STATUS: Signed DATE:08/07/19 TIME: 2026 PATIENT: ANJELICA NAVARRO UNIT #: [id number] ROOM/BED: [address] : 90 AGE: 28 SEX: F ATTEND: Isaiah Chase MD ADM AUTHOR: Isaiah Chase MD * ALL edits or amendments must be made on the electronic/computer document * Subjective Subjective Patient reports: Patient [...] Plan Assessment: IUP 33 0/7 WEEKS, SEVERE IUGR, BOREDERLINE LOW NANCY, ELEVATED SD ON UA DOPPLERS Plan: continue current managmnt, betamethasone admin, surveillance, DELIVER FOR NON REASSURING TESTING at 2028 RPT #:[id number] END OF REPORT [facility] 2019-08-06 13:37:00 [facility] OB Antepartum Prog Note REPORT#:[id number] REPORT STATUS: Signed DATE:08/06/19 TIME: 1337 PATIENT: ANJELICA NAVARRO UNIT #: [id number] ROOM/BED: [address] : 90 AGE: 28 SEX: F ATTEND: Isaiah Chase MD ADM AUTHOR: Isaiah Chase MD * ALL edits or amendments must be made on the electronic/computer document * Subjective Subjective Patient reports: Patient reports: Yes normal movement, No no complaints, No abdominal pain, No vaginal bleeding, No leaking fluid, No contractions Objective General VS: Last Documented: Result Date Time Temp 97.8 08/06 0903 B/P Mean 73.0 08/06 0903 B/P 101/60 08/06 0903 Pulse 80 08/06 0903 Pulse Ox 100 08/06 0229 Resp 18 08/05 0915 Vital Signs Date Temp Pulse Resp B/P B/P Mean Pulse Ox FiO2 08/05-08/06 97.8-98.5 22-100 101-111/60-65 73.0-83.0 86-100 Patient Weight Weight (lb): 128 Weight [...] Plan Assessment: IUP 32 6/7 WEEKS, SEVERE IUGR, BOREDERLINE LOW NANCY, ELEVATED SD ON UA DOPPLERS Plan: continue current managmnt, betamethasone admin, surveillance, DELIVER FOR NON REASSURING TESTING at 1338 RPT #:[id number] END OF REPORT [facility] 2019-08-05 21:42:00 [facility]) OB Antepartum Prog Note REPORT#:[id number] REPORT STATUS: Signed DATE:08/05/19 TIME: 2141 PATIENT: ANJELICA NAVARRO UNIT #: [id number] ROOM/BED: [address] : 90 AGE: 28 SEX: F ATTEND: Isaiah Chase MD ADM AUTHOR: Isaiah Chase MD * ALL edits or amendments must be made on the electronic/computer document * Subjective Subjective Patient reports: Patient [...] Plan Assessment: IUP 32 5/7 WEEKS, SEVERE IUGR, BOREDERLINE LOW NANCY, ELEVATED SD ON UA DOPPLERS Plan: continue current managmnt, betamethasone admin, surveillance, DELIVER FOR NON REASSURING TESTING at 2143 RPT #:[id number] END OF REPORT [facility] 2019-08-04 19:35:00 [facility] ([facility]) Clinical Note REPORT#:[id number] REPORT STATUS: Signed DATE:08/04/19 TIME: 1934 PATIENT: ANJELICA NAVARRO UNIT #: [id number] ROOM/BED: [address] : 90 AGE: 28 SEX: F ATTEND: Isaiah Chase MD ADM AUTHOR: Abi Bangura MD * ALL edits or amendments must be made on the electronic/computer document * Clinical Note Note: hospitalist to [...] [address] Chase called, pt now NPO and [...] s/p Celestone, baby IUGR, pt NPO, continuous monitoring d/w Dr. Chase, [place] also [place] UA [place] cx [place] 4572 RPT #:[id number] END OF REPORT [facility] 2019-08-04 17:09:00 [facility] ([facility]) OB Antepartum Prog Note REPORT#:[id number] REPORT STATUS: Signed DATE:08/04/19 TIME: 1709 PATIENT: ANJELICA NAVARRO UNIT #: [id number] ROOM/BED: [address] : 90 AGE: 28 SEX: F ATTEND: Isaiah Chase MD ADM AUTHOR: Isaiah Chase MD * ALL edits or amendments must be made on the electronic/computer document * Subjective Subjective Patient reports: Patient [...] 124-127/74-76 93.0-95.0 91-100 Patient Weight Weight (lb): 128 Weight [...] CM Assessment: IUP 32 4/7 WEEKS, SEVERE IUGR, BOREDERLINE LOW NANCY, ELEVATED SD ON UA DOPPLERS Plan: continue current managmnt, betamethasone admin, surveillance, DELIVER FOR NON REASSURING TESTING at 1713 RPT #:[id number] END OF REPORT [facility] 2019-08-03 20:46:00 [facility] ([facility]) OB Admission / H P REPORT#:[id number] REPORT STATUS: Signed DATE:08/03/19 TIME: 2045 PATIENT: ANJELICA NAVARRO UNIT #: [id number] ROOM/BED: [address] : 90 AGE: 28 SEX: F ATTEND: Isaiah Chase MD ADM AUTHOR: Isaiah Chase MD * ALL edits or amendments must be made on the electronic/computer document * OB Admission H P Hx Chief complaint: SMALL BABY HPI: 28 y old at 32 3/7 weeks who [...] Medications: SCOPOLAMINE (TRANSDERM-SCOP 1.5 MG) 1 PATCH TRANSDERM ONCE Allergies Coded Allergies: No Known Allergies [...] demise Plan: admit to inpatient, betamethasone admin, surveillance, possible delivery at 34 weeks, inpatient management at 2114 RPT #:[id number] END OF REPORT [facility] 2019-08-03 17:03:00 [facility] ([facility]) DT Consult Note REPORT#:[id number] REPORT STATUS: Signed DATE:08/03/19 TIME: 1703 PATIENT: ANJELICA NAVARRO UNIT #: [id number] ROOM/BED: [address] : 90 AGE: 28 SEX: F ATTEND: Isaiah Chase MD ADM AUTHOR: Ko Velasco DO * ALL edits or amendments must be made on the electronic/computer document * CONSULT NOTE Note: Neonatology Consult [...] criteria. Questions were answered. Our group appreciates the opportunity [...] Signature: Ko Velasco DO at 1704 RPT #:[id number] END OF REPORT [facility]
== END 2024-06-24 20:03 | disposition home or self-care (01) ==
LOC: ER 17:24
DX: Z11.52 Encounter for screening for COVID-19 (principal)
CPT/HCPCS: 36415; 87804; 87811; 99283

== ENCOUNTER 2024-09-19 12:05 | Emergency (ER) | payer OTHER ==
--- OUTSIDE RECORDS SUMMARY | 2024-09-19 12:11 | XMS REPORT | Continuity of Care Document ---
Author Name Unknown Address [address] [facility] [address] [place] [address] [facility] thconnect Address [address] [facility] [address] [place] [address] Care Team Providers Care Gusset Maker Name Role Phone SARAH CLARICE Primary Care Physician STEPHAN Mendez Attending Clinician UnavailPARKER Whiteside Attending Clinician Unavailab ELOINA Swan Attending Clinician UnavailDEEPA Kelley Attending Clinician Unavailable SHAHIDA GAUTHIER Attending Clinician Unaailyn garibay LAB90 Attending Clinician Unavailable SHERICE ANDERSEN Attending Clinician Unavailable MD KAYA Attending Clinician Unavailab giovana Stanton Attending Clinician Unavailable CLARICE SMITH Attending Clinician Unavailab CLARICE Amaral Attending Clinician Unavailab RADHA Lopes Attending Clinician Unavailable JOSEPH DOWLING Attending Clinician Unavailable TETE GALAN Attending Dominickia CEDRICK New Attending Clinician Unavaila ble 2, Ad[facility] Lab [...] Clinician Unavailab TORY Badillo Admitting Clinician Unavaila ble Payers Payer Name Policy Type Policy Number Effective Date Expirati on Date Source [facility] LIANE OLIVEIRA FOCUS 9 [id number] 2023 00:00:00 [facility] [id number] [facility] [place] ST[place] [id number] 2022 00:00:00 [facility] (MEDICAID REPLACEMENT - HMO) [id number] 2022 00:00:00 2023 00:00:00 [place] [facility] [place] [id number] [place] [id number] 2019 00:00:00 [facility] MEDICAL LIMITED PLAN - MULTIPLAN [id number] Problems Condition Name Condition Details Condition Category Status Onset Date Resolution Date Last Treatment Date Treating Clinician Comments Source 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 Disease Active - 00:00: 00 Tete Semeganold - Externa l DOROTHY (generaliz ed anxiety disorder) DOROTHY (generaliz ed anxiety disorder) Disease Active - 00:00: 00 Tete Payneold - Externa l Insomnia Insomnia Disease Active - 00:00: 00 Tete Seybold - Externa l Acute cough Acute cough Disease Active -30 00:00: 00 Tete Payneold - Externa l Intramural leiomyoma of uterus Intramural Leiomyoma of Uterus Problem Active -17 00:00: 00 [facility] Gonorrhea Gonorrhea Problem Active 2019-11 0-13 00:00: 00 [facility] Uses transderma l contracept ion Uses Transderma l Contracept ion Problem Active 08-05 00:00: 00 [facility] Gynecologi c examinatio n Gynecologi c Examinatio n Problem Active 08-05 00:00: 00 [facility] Venereal disease screening Venereal Disease Screening Problem Active 08-05 00:00: 00 [facility] Irregular intermenst rual bleeding Irregular Intermenst rual Bleeding Problem Active -16 00:00: 00 [facility] Initiation of transderma l contracept ion done Initiation of Transderma l Contracept ion Done Problem Active 6-16 00:00: 00 [facility] Problem Active 2018-11 00:00: 00 [facility] Initiation of depot contracept ion done Initiation of Depot Contracept ion Done Problem Active 2018-11 00:00: 00 [facility] Contracept ion education Contracept ion Education Problem Active 2018-11 00:00: 00 [facility] Small for gestationa l age fetus Small for Gestationa l Age Fetus Problem Active 07-05 00:00: 00 [facility] Unintentio nal weight loss Unintentio nal Weight Loss Problem Active 03-14 00:00: 00 [facility] Severe hyperemesi s gravidarum Severe Hyperemesi s Gravidarum Problem Active 02-14 00:00: 00 [facility] No known active problems No known active problems Disease [facility] Allergies, Adverse Reactions, Alerts Allergy Name Allergy Type Status Severity Reaction(s) Onset Date Inactive Date Treating Clinician Comments Source No Known Allergie s DA Active U 08-02 00:00: 00 [facility] NO KNOWN ALLERGIE S Drug Class Active [facility] Social History Social Habit Start Date Stop Date Quantity Comments Source ASSERTION Possible Tete Rico - External Sexual orientation Patrice Rico - External Alcoholic beverage intake 2024-07-25 00:00:00 2024-07-25 00:00:00 Lifetime non-drinker (finding) Tete Rico - External Alcohol intake 2024-01-25 00:00:00 2024-01-25 00:00:00 Lifetime non-drinker (finding) Tete Rico - External Tobacco use and exposure 2023-12-07 00:00:00 2023-12-07 00:00:00 Smokeless tobacco non-user Tete Rico - External History of Social function 2023-12-07 00:00:00 2023-12-07 00:00:00 Tete Rico - External Sex 2023-10-07 07:40:11 2023-10-07 07:40:11 Female (finding) Tete Rico - External Exposure to SARS-CoV-2 (event) 2022-11-10 00:00:00 2022-11-20 13:38:00 Not sure [facility] Sex assigned at 1990 00:00:00 1990 00:00:00 Tete Rico - External Smoking Status Start Date Stop Date Source Tobacco smoking consumption unknown Tete Mcguire Never smoked tobacco Tete Mcguire Medications Ordered Medication Name Filled Medication Name Start Date Stop Date Current Medication? Ordering Clinician Indication Dosage Frequency Signature (SIG) Comments Components Source Valacyclovi r HCl 1 g oral Tablet 07-25 00:00: 00 Yes [id number] 1000mg Q.5D Take 1 tablet (1,000 mg total) by mouth 2 times daily. Tete vieyra Rizatriptan Benzoate (Maxalt) 10 MG oral Tablet 05-24 00:00: 00 07-25 00:00 :00 No One at headache onset. May repeat one pill once after two hours if needed. Max 2 pills/24 hours.. Tete vieyra Famotidine (PEPCID) 20 MG oral tablet 05-10 15:06: 30 05-10 00:00 :00 No 20mg Q.5D Take 1 tablet (20 mg total) by mouth 2 times daily. Tete vieyra Sertraline HCl 100 MG oral Tablet 05-10 00:00: 00 Yes [id number] 100mg QD Take 1 tablet (100 mg total) by mouth daily. Tete vieyra Trazodone HCl 50 MG oral Tablet 05-10 00:00: 00 Yes [id number] 50mg QD Take 1 tablet (50 mg total) by mouth nightly. Tete vieyra Cyanocobala min (B-12) 1000 MCG oral Tablet 05-10 00:00: 00 07-25 00:00 :00 No [id number] 1{tbl} QD Take 1 tablet by mouth [...] 02-27 00:00: 00 05-10 00:00 :00 No [id number] 50mg Take 1 tablet (50 mg total) [...] 02-23 00:00: 00 05-10 00:00 :00 No [id number] 50mg QD Take 1 tablet (50 mg total) by mouth daily. Tete vieyra Trazodone HCl 50 MG oral Tablet 02-23 00:00: 00 05-10 00:00 :00 No [id number] 50mg QD Take 1 tablet (50 mg total) by mouth nightly. Tete vieyra Twirla 120-30 MCG/24HR transdermal PATCH WEEKLY 01-31 00:00: 00 05-10 00:00 :00 No APPLY ONE (1) PATCH TO THE SKIN EVERY WEEK. Tete vieyra ACETAMINOPH EN-CAFF-BUT ALBITAL 50-325-40 MG oral Tablet 01-24 00:00: 00 Yes [id number] 1{tbl} Q4H Take 1 tablet by mouth every 4 hours as needed for pain. Tete vieyra Sertraline HCl 25 MG oral Tablet 01-24 00:00: 00 Yes [id number] 25mg Take 1 tablet (25 mg total) by mouth daily. Tete vieyra Diclofenac Sodium 75 MG oral Tablet Delayed Response 01-24 00:00: 00 05-10 00:00 :00 No [id number] 75mg Q.5D Take 1 tablet (75 mg total) by mouth 2 times daily. Tete vieyra Zafemy 150-35 MCG/24HR transdermal PATCH WEEKLY 2-09 00:00: 00 05-10 00:00 :00 No 1{patch } Q1W Place 1 patch onto the skin once a week. Tete vieyra Famotidine (Pepcid) 20 MG oral tablet 12-07 00:00: 00 Yes [id number] 20mg Take 1 tablet (20 mg total) by mouth 2 times daily. Tete vieyra Benzonatate (Tessalon Perles) 100 MG oral Capsule 12-07 00:00: 00 Yes [id number] 100mg Q.[id number] 3D Take 1 capsule (100 mg total) by mouth 3 times daily as needed for cough. Tete vieyra methylPREDN ISolone 4 MG oral Tablet Therapy Pack 11-30 00:00: 00 12-07 00:00 :00 No [id number] 1{piter} Take 1 piter by mouth See Admin Instructio ns Use as directed. Tete vieyra Azithromyci n 250 MG oral Tablet 11-30 00:00: 00 12-07 00:00 :00 No [id number] Take 2 tablets by mouth on day 1 then 1 tablet by mouth daily for 4 days thereafter .. Tete vieyra EPINEPHrine 0.15 mg/0.3 mL injection - 00:00: 00 Yes INJECT 0.3 ML(S) INTRAMUSCU LARLY NEEDED FOR ANAPHYLAXI S. [facility] medroxyprog esterone 10 mg tablet TAKE ONE (1) TABLET(S) BY MOUTH ONCE A DAY. medroxyprog esterone 10 mg tablet TAKE ONE (1) TABLET(S) BY MOUTH ONCE A DAY. No medroxypro gesterone 10 mg tablet TAKE ONE (1) TABLET(S) BY MOUTH ONCE A DAY. [facility] medroxyprog esterone 150 mg/mL intramuscul ar suspension Inject 1 mL every 3 months by intramuscul ar route. medroxyprog esterone 150 mg/mL intramuscul ar suspension Inject 1 mL every 3 months by intramuscul ar route. No 1mL medroxypro gesterone 150 mg/mL intramuscu lar suspension Inject 1 mL every 3 months by intramuscu lar route. [facility] cholecalcif jeremiah (vitamin D3) 1,250 mcg (50,000 unit) capsule TAKE ONE (1) CAPSULE(S) BY MOUTH ONCE WEEKLY. cholecalcif jeremiah (vitamin D3) 1,250 mcg (50,000 unit) capsule TAKE ONE (1) CAPSULE(S) BY MOUTH ONCE WEEKLY. No cholecalci ferol (vitamin D3) 1,250 mcg (50,000 unit) capsule TAKE ONE (1) CAPSULE(S) BY MOUTH ONCE WEEKLY. [facility] medroxyprog esterone 150 mg/mL intramuscul ar suspension Inject 1 mL every 3 months by intramuscul ar route. medroxyprog esterone 150 mg/mL intramuscul ar suspension Inject 1 mL every 3 months by intramuscul ar route. No 1mL medroxypro gesterone 150 mg/mL intramuscu lar suspension Inject 1 mL every 3 months by intramuscu lar route. [facility] medroxyprog esterone 150 mg/mL intramuscul ar syringe INJECT ONE (1) ML(S) INTO THE MUSCLE EVERY 3 MONTHS. medroxyprog esterone 150 mg/mL intramuscul ar syringe INJECT ONE (1) ML(S) INTO THE MUSCLE EVERY 3 MONTHS. No medroxypro gesterone 150 mg/mL intramuscu lar syringe INJECT ONE (1) ML(S) INTO THE MUSCLE EVERY 3 MONTHS. [facility] Provera 10 mg tablet Take 1 tablet every day by oral route for 14 days. Provera 10 mg tablet Take 1 tablet every day by oral route for 14 days. No 1 Q1D Provera 10 mg tablet Take 1 tablet every day by oral route for 14 days. [facility] cholecalcif jeremiah (vitamin D3) 1,250 mcg (50,000 unit) capsule TAKE ONE (1) CAPSULE(S) BY MOUTH ONCE WEEKLY. cholecalcif jeremiah (vitamin D3) 1,250 mcg (50,000 unit) capsule TAKE ONE (1) CAPSULE(S) BY MOUTH ONCE WEEKLY. No cholecalci ferol (vitamin D3) 1,250 mcg (50,000 unit) capsule TAKE ONE (1) CAPSULE(S) BY MOUTH ONCE WEEKLY. [facility] medroxyprog esterone 10 mg tablet TAKE ONE (1) TABLET(S) BY MOUTH ONCE A DAY FOR 14 DAYS. medroxyprog esterone 10 mg tablet TAKE ONE (1) TABLET(S) BY MOUTH ONCE A DAY FOR 14 DAYS. No medroxypro gesterone 10 mg tablet TAKE ONE (1) TABLET(S) BY MOUTH ONCE A DAY FOR 14 DAYS. [facility] medroxyprog esterone 150 mg/mL intramuscul ar suspension Inject 1 mL every 3 months by intramuscul ar route. medroxyprog esterone 150 mg/mL intramuscul ar suspension Inject 1 mL every 3 months by intramuscul ar route. No 1mL medroxypro gesterone 150 mg/mL intramuscu lar suspension Inject 1 mL every 3 months by intramuscu lar route. [facility] medroxyprog esterone 150 mg/mL intramuscul ar syringe INJECT ONE (1) ML(S) INTO THE MUSCLE EVERY 3 MONTHS. medroxyprog esterone 150 mg/mL intramuscul ar syringe INJECT ONE (1) ML(S) INTO THE MUSCLE EVERY 3 MONTHS. No medroxypro gesterone 150 mg/mL intramuscu lar syringe INJECT ONE (1) ML(S) INTO THE MUSCLE EVERY 3 MONTHS. [facility] methylpredn isolone 4 mg tablets in a dose pack TAKE BY MOUTH DIRECTED. methylpredn isolone 4 mg tablets in a dose pack TAKE BY MOUTH DIRECTED. No methylpred nisolone 4 mg tablets in a dose pack TAKE BY MOUTH DIRECTED. [facility] Xulane 150 mcg-35 mcg/24 hr transdermal patch Apply 1 patch every week by transdermal route. Xulane 150 mcg-35 mcg/24 hr transdermal patch Apply 1 patch every week by transdermal route. No 1patch( es) Q1W Xulane 150 mcg-35 mcg/24 hr transderma l patch Apply 1 patch every week by transderma l route. [facility] Vital Signs Vital Name Observation Time Observation Value Comments S ource Systolic blood pressure 2024-07-25 15:17:00 132 mm[Hg] Tete Seybo ld - External Diastolic blood pressure 2024-07-25 15:17:00 78 mm[Hg] Tete Heybo ld - External Heart rate 2024-07-25 15:17:00 108 /min Kelse y Seybold - External Body temperature 2024-07-25 15:17:00 36.89 Kiley Tete Seybold - External Respiratory rate 2024-07-25 15:17:00 18 /min Tete Seybold - External Body height 2024-07-25 15:17:00 162.6 cm Massiel ey Seybold - External Body weight 2024-07-25 15:17:00 71.215 kg Massiel ey Seybold - External BMI 2024-07-25 15:17:00 26.95 kg/m2 Massiel ey Seybold - External Oxygen saturation in Arterial blood by Pulse oximetry 2024-07-25 15:17:00 98 /min Tete Heybo ld - External Systolic blood pressure 2024-05-24 20:03:00 128 mm[Hg] Tete Seybo ld - External Diastolic blood pressure 2024-05-24 20:03:00 78 mm[Hg] Tete Heybo ld - External Heart rate 2024-05-24 20:03:00 72 /min Vishalse y Seybold - External Body temperature 2024-05-24 20:03:00 37.11 Kiley Tete Seybold - External Respiratory rate 2024-05-24 20:03:00 16 /min Tete Seybold - External Body height 2024-05-24 20:03:00 162.6 cm Massiel ey Seybold - External Body weight 2024-05-24 20:03:00 67.586 kg Massiel ey Seybold - External BMI 2024-05-24 20:03:00 25.58 kg/m2 Massiel ey Seybold - External Respiratory rate 2024-05-10 19:58:00 18 [...] (Body Mass Index) 2023-12-17 00:00:00 26.9 kg/m2 [facility] BP Diastolic 2023-12-17 00:00:00 77 mm[Hg] [facility] Body Weight 2023-12-17 00:00:00 156.7 [lb_av] [facility] Height 2023-12-17 00:00:00 64 [in_i] [facility] Systolic blood pressure 2023-12-07 [...] Group BP Diastolic 2023-10-21 00:00:00 89 mm[Hg] [facility] BMI (Body Mass Index) 2023-10-21 00:00:00 26.8 kg/m2 [facility] Body Weight 2023-06-29 00:00:00 151 [lb_av] [facility] BP Systolic 2023-06-29 00:00:00 133 mm[Hg] [facility] Height 2023-06-29 00:00:00 64 [in_i] [facility] BMI (Body Mass Index) 2023-06-29 00:00:00 25.9 kg/m2 [facility] BP Diastolic 2023-06-29 00:00:00 88 mm[Hg] [facility] Systolic blood pressure 2022-11-20 19:55:00 128 mm[Hg] [facility] Diastolic blood pressure 2022-11-20 19:55:00 76 mm[Hg] [facility] Heart rate 2022-11-20 19:55:00 82 /min [facility] Body temperature 2022-11-20 19:55:00 36.67 Kiley [facility] Respiratory rate 2022-11-20 19:55:00 18 /min [facility] Body height 2022-11-20 19:55:00 162.6 cm [facility] Body weight 2022-11-20 19:55:00 72.576 kg [facility] BMI 2022-11-20 19:55:00 27.46 kg/m2 [facility] Oxygen saturation in Arterial blood by Pulse oximetry 2022-11-20 19:55:00 100 /min [facility] BP Diastolic 2022-06-22 00:00:00 82 mm[Hg] [facility] Height 2022-06-22 00:00:00 64 [in_i] [facility] BMI (Body Mass Index) 2022-06-22 00:00:00 26 kg/m2 [facility] BP Systolic 2022-06-22 00:00:00 131 mm[Hg] [facility] Body Weight 2022-06-22 00:00:00 151.4 [lb_av] [facility] BP Diastolic 2022-05-08 00:00:00 92 mm[Hg] [facility] Height 2022-05-08 00:00:00 64 [in_i] [facility] BMI (Body Mass Index) 2022-05-08 00:00:00 25.9 kg/m2 [facility] BP Systolic 2022-05-08 00:00:00 142 mm[Hg] [facility] Body Weight 2022-05-08 00:00:00 151 [lb_av] [facility] Height 2022-03-18 00:00:00 64 [in_i] [facility] BP Diastolic 2021-12-18 00:00:00 88 mm[Hg] [facility] Height 2021-12-18 00:00:00 64 [in_i] [facility] BMI (Body Mass Index) 2021-12-18 00:00:00 25.5 kg/m2 [facility] BP Systolic 2021-12-18 00:00:00 138 mm[Hg] [facility] Body Weight 2021-12-18 00:00:00 148.4 [lb_av] [facility] Height 2021-09-17 00:00:00 64 [in_i] [facility] BMI (Body Mass Index) 2021-09-17 00:00:00 23.2 kg/m2 [facility] Body Weight 2021-09-17 00:00:00 135 [lb_av] [facility] BP Diastolic 2021-09-02 00:00:00 75 mm[Hg] [facility] Height 2021-09-02 00:00:00 64 [in_i] [facility] BMI (Body Mass Index) 2021-09-02 00:00:00 23 kg/m2 [facility] BP Systolic 2021-09-02 00:00:00 119 mm[Hg] [facility] Body Weight 2021-09-02 00:00:00 134.2 [lb_av] [facility] BP Diastolic 2021-08-19 00:00:00 87 mm[Hg] [facility] Height 2021-08-19 00:00:00 64 [in_i] [facility] BMI (Body Mass Index) 2021-08-19 00:00:00 22.6 kg/m2 [facility] BP Systolic 2021-08-19 00:00:00 124 mm[Hg] [facility] Body Weight 2021-08-19 00:00:00 131.9 [lb_av] [facility] BP Diastolic 2021-04-11 00:00:00 81 mm[Hg] [facility] Height 2021-04-11 00:00:00 64 [in_i] [facility] BMI (Body Mass Index) 2021-04-11 00:00:00 21.1 kg/m2 [facility] BP Systolic 2021-04-11 00:00:00 144 mm[Hg] [facility] Body Weight 2021-04-11 00:00:00 122.9 [lb_av] [facility] Height 2021-03-24 00:00:00 64 [in_i] [facility] BMI (Body Mass Index) 2021-03-24 00:00:00 20.9 kg/m2 [facility] BP Systolic 2021-03-24 00:00:00 127 mm[Hg] [facility] Body Weight 2021-03-24 00:00:00 122 [lb_av] [facility] BP Diastolic 2021-03-24 00:00:00 83 mm[Hg] [facility] BP Diastolic 2020-09-24 00:00:00 83 mm[Hg] [facility] Height 2020-09-24 00:00:00 64 [in_i] [facility] BMI (Body Mass Index) 2020-09-24 00:00:00 22.7 kg/m2 [facility] BP Systolic 2020-09-24 00:00:00 120 mm[Hg] [facility] Body Weight 2020-09-24 00:00:00 132.4 [lb_av] [facility] BP Diastolic 2020-08-20 00:00:00 70 mm[Hg] [facility] Height 2020-08-20 00:00:00 64 [in_i] [facility] BMI (Body Mass Index) 2020-08-20 00:00:00 22.6 kg/m2 [facility] BP Systolic 2020-08-20 00:00:00 131 mm[Hg] [facility] Body Weight 2020-08-20 00:00:00 131.5 [lb_av] [facility] BP Diastolic 2020-08-05 00:00:00 80 mm[Hg] [facility] Height 2020-08-05 00:00:00 64 [in_i] [facility] BMI (Body Mass Index) 2020-08-05 00:00:00 22.3 kg/m2 [facility] BP Systolic 2020-08-05 00:00:00 130 mm[Hg] [facility] Body Weight 2020-08-05 00:00:00 130 [lb_av] [facility] BP Diastolic 2020-04-23 00:00:00 82 mm[Hg] [facility] Height 2020-04-23 00:00:00 64 [in_i] [facility] BMI (Body Mass Index) 2020-04-23 00:00:00 23 kg/m2 [facility] BP Systolic 2020-04-23 00:00:00 128 mm[Hg] [facility] Body Weight 2020-04-23 00:00:00 134 [lb_av] [facility] BP Diastolic 2020-01-02 00:00:00 73 mm[Hg] [facility] Height 2020-01-02 00:00:00 64 [in_i] [facility] BMI (Body Mass Index) 2020-01-02 00:00:00 21.8 kg/m2 [facility] BP Systolic 2020-01-02 00:00:00 114 mm[Hg] [facility] Body Weight 2020-01-02 00:00:00 127.1 [lb_av] [facility] BP Diastolic 2019-09-19 00:00:00 78 mm[Hg] [facility] Height 2019-09-19 00:00:00 64 [in_i] [facility] BMI (Body Mass Index) 2019-09-19 00:00:00 21.8 kg/m2 [facility] BP Systolic 2019-09-19 00:00:00 122 mm[Hg] [facility] Body Weight 2019-09-19 00:00:00 127.2 [lb_av] [facility] BP Diastolic 2019-08-02 00:00:00 77 mm[Hg] [facility] Height 2019-08-02 00:00:00 64 [in_i] [facility] BMI (Body Mass Index) 2019-08-02 00:00:00 22 kg/m2 [facility] BP Systolic 2019-08-02 00:00:00 116 mm[Hg] [facility] Body Weight 2019-08-02 00:00:00 128 [lb_av] [facility] BP Diastolic 2019-07-19 00:00:00 76 mm[Hg] [facility] Height 2019-07-19 00:00:00 64 [in_i] [facility] BMI (Body Mass Index) 2019-07-19 00:00:00 21.8 kg/m2 [facility] BP Systolic 2019-07-19 00:00:00 117 mm[Hg] [facility] Body Weight 2019-07-19 00:00:00 127 [lb_av] [facility] BP Diastolic 2019-07-05 00:00:00 63 mm[Hg] [facility] Height 2019-07-05 00:00:00 64 [in_i] [facility] BMI (Body Mass Index) 2019-07-05 00:00:00 21.9 kg/m2 [facility] BP Systolic 2019-07-05 00:00:00 103 mm[Hg] [facility] Body Weight 2019-07-05 00:00:00 127.5 [lb_av] [facility] BP Diastolic 2019-06-05 00:00:00 76 mm[Hg] [facility] Height 2019-06-05 00:00:00 64 [in_i] [facility] BMI (Body Mass Index) 2019-06-05 00:00:00 20.9 kg/m2 [facility] BP Systolic 2019-06-05 00:00:00 106 mm[Hg] [facility] Body Weight 2019-06-05 00:00:00 122 [lb_av] [facility] BP Diastolic 2019-05-08 00:00:00 69 mm[Hg] [facility] Height 2019-05-08 00:00:00 64 [in_i] [facility] BMI (Body Mass Index) 2019-05-08 00:00:00 20.5 kg/m2 [facility] BP Systolic 2019-05-08 00:00:00 107 mm[Hg] [facility] Body Weight 2019-05-08 00:00:00 119.4 [lb_av] [facility] BP Diastolic 2019-04-10 00:00:00 81 mm[Hg] [facility] Height 2019-04-10 00:00:00 64 [in_i] [facility] BMI (Body Mass Index) 2019-04-10 00:00:00 19.3 kg/m2 [facility] BP Systolic 2019-04-10 00:00:00 119 mm[Hg] [facility] Body Weight 2019-04-10 00:00:00 112.5 [lb_av] [facility] BP Diastolic 2019-04-04 00:00:00 85 mm[Hg] [facility] Height 2019-04-04 00:00:00 64 [in_i] [facility] BMI (Body Mass Index) 2019-04-04 00:00:00 19.4 kg/m2 [facility] BP Systolic 2019-04-04 00:00:00 132 mm[Hg] [facility] Body Weight 2019-04-04 00:00:00 113 [lb_av] [facility] BP Diastolic 2019-03-14 00:00:00 87 mm[Hg] [facility] Height 2019-03-14 00:00:00 64 [in_i] [facility] BMI (Body Mass Index) 2019-03-14 00:00:00 19.1 kg/m2 [facility] BP Systolic 2019-03-14 00:00:00 124 mm[Hg] [facility] Body Weight 2019-03-14 00:00:00 111 [lb_av] [facility] BP Diastolic 2019-02-14 00:00:00 97 mm[Hg] [facility] Height 2019-02-14 00:00:00 64 [in_i] [facility] BMI (Body Mass Index) 2019-02-14 00:00:00 20.6 kg/m2 [facility] BP Systolic 2019-02-14 00:00:00 135 mm[Hg] [facility] Body Weight 2019-02-14 00:00:00 120 [lb_av] [facility] BP Diastolic 2019-02-07 00:00:00 83 mm[Hg] [facility] Height 2019-02-07 00:00:00 64 [in_i] [facility] BMI (Body Mass Index) 2019-02-07 00:00:00 22 kg/m2 [facility] BP Systolic 2019-02-07 00:00:00 124 mm[Hg] [facility] Body Weight 2019-02-07 00:00:00 128.4 [lb_av] [facility] BP Diastolic 2019-01-26 00:00:00 84 mm[Hg] [facility] Height 2019-01-26 00:00:00 64 [in_i] [facility] BMI (Body Mass Index) 2019-01-26 00:00:00 22.4 kg/m2 [facility] BP Systolic 2019-01-26 00:00:00 128 mm[Hg] [facility] Body Weight 2019-01-26 00:00:00 130.4 [lb_av] [facility] BP Diastolic 2019-01-03 00:00:00 76 mm[Hg] [facility] Height 2019-01-03 00:00:00 64 [in_i] [facility] BMI (Body Mass Index) 2019-01-03 00:00:00 22.4 kg/m2 [facility] BP Systolic 2019-01-03 00:00:00 118 mm[Hg] Mcel[facility]hila kerr [facility] Body Weight 2019-01-03 00:00:00 130.3 [lb_av] [facility] Procedures Procedure Date / Time Performed Performing Clinician Source FREE T4 2022-11-20 20:48:00 [facility] THYROID STIMULATING HORMONE 2022-11-20 20:48:00 [facility] COMP. METABOLIC PANEL (53069) 2022-11-20 20:48:00 [facility] LIPID PANEL (32809)(TOTAL CHOLESTEROL, TRIGLYCERIDES, HDL) 2022-11-20 20:48[facility]00 [facility] WITH DIFF 2022-11-20 20:48:00 [facility] GLYCOSYLATED HEMOGLOBIN (A1C) 2022-11-20 20:48:00 [facility] FREE T3 2022-11-20 20:48:00 [facility] US, transvaginal 2021-03-24 00:00:00 [facility] US, obstetric, limited 2019-08-02 00:00:00 [facility] US(FBP)W/0 NON STRESS TEST 2019-08-02 00:00:00 [facility] ULTRASOUND REPEAT 2019-07-05 00:00:00 [facility] US, obstetric, limited 2019-04-10 00:00:00 [facility] ULTRASOUND, UTERUS REAL TIME WITH IMAGE DOC, AND MATERNAL EVAL PLUS DETAILED ANATOMIC EXAMINATION, TRANSABDOMINAL APPROACH; SINGLE OR FIRST GESTATION 2019-04-10 00:00:00 [facility] US, obstetric, limited 2019-03-14 00:00:00 [facility] ULTRASOUND, UTERUS REAL TIME WITH IMAGE DOCUMENTAITON, TRANSVAGINAL 2019-02-14 00:00:00 [facility] ULTRASOUND, UTERUS REAL TIME WITH IMAGE DOCUMENTAITON, TRANSVAGINAL 2019-01-26 00:00:00 [facility] XR, hysterosalpingogram 2019-01-03 00:00:00 [facility] Cholecystectomy 2018-11-08 00:00:00 [facility] Dilation and Curettage 2014-09-08 00:00:00 [facility] Plan of Care Planned Activity Planned Date Details Comments Source Diagnostic Test Pending 2023-12-17 00:00:00 urinalysis, dipstick [code = urinalysis, dipstick] [facility] Diagnostic Test Pending 2023-12-17 00:00:00 test, urine [code = test, urine] [facility] Diagnostic Test Pending 2023-12-17 00:00:00 RPR (rapid plasma reagin), serum [code = RPR (rapid plasma reagin), serum] [facility] Diagnostic Test Pending 2023-12-17 00:00:00 HIV (1+2) Ab screen, serum [code = HIV (1+2) Ab screen, serum] [facility] Diagnostic Test Pending 2023-12-17 00:00:00 HBsAg (hepatitis B surface Ag), serum [code = HBsAg (hepatitis B surface Ag), serum] [facility] Diagnostic Test Pending 2023-12-17 00:00:00 STI panel [code = STI panel] [facility] Instructions [facility] Encounters Start Date/Time End Date/Time Encounter Type Admission Type Attending [facility] Care Department Encounter ID Source 2024-11-21 09:30:00 2024-11-21 09:30:00 Outpatient STEPHAN FLORES [id number] [facility] 2024-09-12 09:30:00 2024-09-12 09:30:00 Outpatient STEPHAN FLORES [id number] [facility] 2024-07-25 10:30:00 2024-07-25 10:30:00 Outpatient PARKER BENNETT TETE [id number] [facility] 2024-07-05 15:00:00 2024-07-05 15:00:00 Outpatient PARKER BENNETT TETE [id number] [facility] 2024-06-20 10:00:00 2024-06-20 10:00:00 Outpatient PARKER BENNETT TETE [id number] T[facility] 2024-05-25 10:30:00 2024-05-25 10:30:00 Outpatient ELOINA ZAYAS TETE CRUM [id number] [facility] 2024-05-24 14:45:00 2024-05-24 14:45:00 Outpatient ELOINA ZAYAS [facility] [id number] [facility] 2024-05-18 00:00:00 2024-05-18 00:00:00 Outpatient DEEPA BENAVIDES [id number] [facility] 2024-05-13 00:00:00 2024-05-13 00:00:00 Outpatient SHAHIDA GAUTHIER [id number] [facility] 2024-05-13 00:00:00 2024-05-13 00:00:00 Outpatient DEEPA BENAVIDES [id number] [facility] 2024-05-12 14:55:00 2024-05-12 14:55:00 Outpatient LABSteve CRUM [id number] [facility] 2024-05-12 00:00:00 2024-05-12 00:00:00 Outpatient DEEPA BENAVIDES [id number] [facility] 2024-05-10 15:45:00 2024-05-10 15:45:00 Outpatient LABSteve CRUM [id number] [facility] 2024-05-10 15:00:00 2024-05-10 15:00:00 Outpatient DEEPA BENAVIDES [id number] [facility] 2024-04-27 09:00:00 2024-04-27 09:00:00 Outpatient DEE[facility]VIDES [id number] [facility] 2024-04-26 15:00:00 2024-04-26 15:00:00 Outpatient KENNEDY DEEPA TETE CRUM [id number] [facility] 2024-03-29 11:00:00 2024-03-29 11:00:00 Outpatient KENNEDY DEEPA CRUM [id number] [facility] Jacky 2024-03-10 10:15:00 2024-03-10 10:15:00 Outpatient SHERICE ANDERSEN TETE CRUM [id number] [facility] 2024-02-29 00:00:00 2024-02-29 00:00:00 Outpatient MD TETE REINA [id number] [facility] 2024-02-28 00:00:00 2024-02-28 00:00:00 Outpatient KENNEDY DEEPA CRUM [id number] [facility] 2024-02-25 00:00:00 2024-02-25 00:00:00 Outpatient KENNEDY DEEPA TETE CRUM [id number] [facility] 2024-02-24 10:15:00 2024-02-24 10:15:00 Outpatient LAB90 TETE CRUM [id number] [facility] 2024-02-24 09:30:00 2024-02-24 09:30:00 Outpatient JELANIYas DEEPA CURM [id number] [facility] 2024-02-09 00:00:00 2024-02-09 00:00:00 Outpatient Rutledge_L MMG [facility] [id number] [facility] 2024-01-26 08:15:00 2024-01-26 08:15:00 Outpatient LAB90 TETE CRUM [id number] [facility] 2024-01-25 14:15:00 2024-01-25 14:15:00 Outpatient LAB90 TETE CURM [id number] [facility] 2024-01-25 13:30:00 2024-01-25 13:30:00 Outpatient KENNEDY DEEPA CRUM [id number] [facility] 2024-01-11 13:30:00 2024-01-11 13:30:00 Outpatient R CLARICE SMITH [facility] [id number] [facility] 2024-01-07 00:00:00 2024-01-07 00:00:00 Outpatient Rutledge_L MMG MM[facility] [id number] [facility] 2023-12-28 00:00:00 2023-12-28 00:00:00 Outpatient Rutledge_L MMG MM[facility] [id number] [facility] 2023-12-17 11:19:00 2023-12-17 11:19:00 Outpatient RADHA MCHUGH [facility] [id number] [facility] 2023-12-17 00:00:00 2023-12-17 00:00:00 Outpatient Rutledge_L MMG MMG [id number] [facility] 2023-12-17 00:00:00 2023-12-17 00:00:00 LORENA SalmeronP-BC: [address] [facility], [address], [place] [address] , Ph. [phone] MMG [facility] [id number] 2023-12-07 14:30:00 2023-12-07 14:30:00 Outpatient JOSEPH DOWLING [id number] [facility] 2023-12-06 00:00:00 2023-12-06 00:00:00 Outpatient TETE GALAN [id number] [facility] 2023-11-30 11:00:00 2023-11-30 11:00:00 Outpatient CEDRICK CARROLL [id number] [facility] 2023-11-23 09:30:00 2023-11-23 09:30:00 Outpatient CLARICE MACKEY [facility] [id number] [facility] 2023-10-21 00:00:00 2023-10-21 00:00:00 Anna Gunter MD: [address], [place] [address] , Ph. [phone] MMG [facility] - OBGYN [id number] [facility] 2023-10-20 00:00:00 2023-10-20 00:00:00 Outpatient Rutledge_L MMG MMG [id number] [facility] 2023-10-20 00:00:00 2023-10-20 00:00:00 Outpatient Rutledge_L MMG MMG [id number] [facility] 2023-10-13 09:07:18 2023-10-13 09:07:18 Outpatient SFA SFA [id number] Jose G Renteria 2023-07-22 00:00:00 2023-07-22 00:00:00 Outpatient Rutledge_L MMG MMG [id number] [facility] 2023-07-22 00:00:00 2023-07-22 00:00:00 Outpatient Rutledge_L MMG MMG [id number] [facility] 2023-06-29 09:08:00 2023-06-29 09:08:00 Outpatient LISA MCHUGHGHAN [facility] [id number] [facility] 2023-06-29 00:00:00 2023-06-29 00:00:00 Outpatient Rutledge_L MMG MMG 0822 [facility] 2023-06-29 00:00:00 2023-06-29 00:00:00 ALEXANDER Salmeron-: [address] [facility] [address], [address], [place] [address] , Ph. 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 BU[facility] [id number] [facility] 2022-10-23 00:00:00 2022-10-23 00:00:00 Outpatient Rutledge_L MMG MMG [id number] [facility] 2022-10-23 00:00:00 2022-10-23 00:00:00 Outpatient Rutledge_L MMG MMG [id number] [facility] 2022-10-23 00:00:00 2022-10-23 00:00:00 Outpatient Rutledge_L MMG MMG [id number] [facility] 2022-10-01 00:00:00 2022-10-01 00:00:00 Outpatient Rutledge_L MMG MMG [id number] [facility] 2022-09-25 00:00:00 2022-09-25 00:00:00 Outpatient Rutledge_L MMG MMG [id number] [facility] 2022-09-01 00:00:00 2022-09-01 00:00:00 Outpatient Rutledge_L MMG MMG [id number] [facility] 2022-08-05 00:00:00 2022-08-05 00:00:00 Outpatient Rutledge_L MMG MMG [id number] [facility] 2022-06-23 00:00:00 2022-06-23 00:00:00 Outpatient Rutledge_L MMG MMG 16 [facility] 2022-06-22 00:00:00 2022-06-22 00:00:00 Tory Rodrigues MD: [address] [facility] [address] [facility], [place] [address] , Ph. [phone] Rutledge_L MMG [facility] 0815 [facility] 2022-06-16 00:00:00 2022-06-16 00:00:00 Outpatient Rutledge_L MMG MMG [id number] [facility] 2022-05-08 10:22:00 2022-05-08 10:22:00 Outpatient ANNA ORNELAS [facility] [id number] [facility] 2022-05-08 00:00:00 2022-05-08 00:00:00 Anna Gunter MD: [address] [facility] [address] [place] [address] , Ph. [phone] Rutledge_L MMG [facility] 0701 [facility] 2022-03-18 00:00:00 2022-03-18 00:00:00 Anna Gunter MD: [address] [facility] [address], [place] [address] , Ph. [phone] Rutledge_L MMG [facility] 0511 [facility] 2021-12-23 09:19:00 2021-12-23 09:19:00 Outpatient Rutledge_L MMG MMG 0215 [facility] 2021-12-18 00:00:00 2021-12-18 00:00:00 GERDA Salmeron: [address] [facility] [address], [place] [address] , Ph. [phone] MMG [facility] 0210 [facility] 2021-12-17 04:22:00 2021-12-17 04:22:00 Outpatient Rutledge_L MMG MMG [id number] [facility] 2021-10-10 05:04:00 2021-10-10 05:04:00 Outpatient FLOR TEETEE MILAN [facility] [id number] [facility] 2021-09-17 00:00:00 2021-09-17 00:00:00 LORENA SalmeronP-BC: [address] [facility] [address], [place] [address] , Ph. [phone] Rutledge_L MMG [facility] 1110 [facility] 2021-09-02 00:00:00 2021-09-02 00:00:00 GERDA SalmeronBC: [address] [facility] [address], [place] [address] , Ph. [phone] Rutledge_L MMG [facility] 1025 [facility] 2021-08-27 11:50:00 2021-08-27 11:50:00 Outpatient Rutledge_L MMG G 1020 [facility] 2021-08-19 14:04:00 2021-08-19 14:04:00 Outpatient GRETCHEN STAPLES RADHA [facility] [id number] [facility] 2021-08-19 00:00:00 2021-08-19 00:00:00 LORENA SalmeronPTiffanieBC: [address] [facility] [address], [place] [address] , Ph. [phone] Rutledge_L MMG [facility] 101 [facility] 2021-04-22 01:40:00 2021-04-22 01:40:00 Outpatient Rutledge_L MMG MMG [id number] [facility] 2021-04-14 14:56:00 2021-04-14 14:56:00 Outpatient ANNA ORNELAS [facility] [id number] [facility] 2021-04-11 00:00:00 2021-04-11 00:00:00 Anna Gunter MD: [address] [facility] [address] [place] [address] , Ph. [phone] Rutledge_L MMG [facility] 0604 [facility] 2021-03-24 00:00:00 2021-03-24 00:00:00 Anna Gunter MD: [address] [address] , Ph. [phone] Rutledge_L MMG [facility] - [facility]YN 0517 [facility] 2020-12-02 12:46:00 2020-12-02 12:46:00 Outpatient Rutledge_L MMG MMG 0125 [facility] 2020-11-27 03:56:00 2020-11-27 03:56:00 Outpatient Rutledge_L MMG MMG [id number] [facility] 2020-11-25 02:38:00 2020-11-25 02:38:00 Outpatient Rutledge_L MMG MMG [id number] [facility] 2020-09-25 02:21:00 2020-09-25 02:21:00 Outpatient Rutledge_L MMG MMG [id number] [facility] 2020-09-24 00:00:00 2020-09-24 00:00:00 Tory Rodrigues MD: [address] [address] , Ph. [phone] Rutledge_L MMG [facility] 1117 [facility] 2020-09-14 12:28:00 2020-09-14 12:28:00 Outpatient Rutledge_L MMG MMG [id number] [facility] 2020-08-20 00:00:00 2020-08-20 00:00:00 Yary Marinelli, NP: [address] [facility] [address] [place] [address] , Ph. [phone] [facility]L [facility] 1013 [facility] 2020-08-05 09:06:00 2020-08-05 09:06:00 Outpatient GRETCHEN CAZARESISYARY [facility] [id number] [facility] 2020-08-05 00:00:00 2020-08-05 00:00:00 Yary Marinelli, NP: [address] [address] , Ph. [phone] Rutledge_L MMG [facility] OBGY 0928 [facility] 2020-05-04 11:32:00 2020-05-04 11:32:00 Outpatient Rutledge_L MMG MMG 0627 [facility] 2020-04-23 00:00:00 2020-04-23 00:00:00 Yary Marinelli, NP: [address] [address] , Ph. [phone] [facility]ledge[facility]L [facility] 0616 [facility] 2020-02-12 05:07:00 2020-02-12 05:07:00 Outpatient Rutledge_L MMG MMG [id number] [facility] 2020-01-15 10:29:00 2020-01-15 10:29:00 Outpatient Rutledge_L MMG MMG [id number] [facility] 2020-01-05 09:41:00 2020-01-05 09:41:00 Outpatient Rutledge_L MMG MMG 8 [facility] 2020-01-04 06:57:00 2020-01-04 06:57:00 Outpatient Rutledge_L MMG MMG 226 [facility] 2020-01-02 00:00:00 2020-01-02 00:00:00 Tory Rodrigues MD: [address] [facility], [place] [address] , Ph. [phone] Rutledge_L MMG [facility] - O[facility]YN 5 [facility] 2019-12-19 03:47:00 2019-12-19 03:47:00 Outpatient Rutledge_L MMG MMG 210 [facility] 2019-12-11 11:19:00 2019-12-11 11:19:00 Outpatient DICSANA_ TEETEE KSALLEN [facility] [id number] [facility] 2019-11-21 15:26:00 2019-11-21 18:03:00 Emergency ER AYAZ DURAND [facility] [id number] [facility] 2019-09-19 00:00:00 2019-09-19 00:00:00 YOLIE Roa: [address] [address] , Ph. [phone] MMG [facility] O[facility] 1112 [facility] 2019-08-02 00:00:00 2019-08-02 00:00:00 Tory Rodrigues MD: [address] [address] , Ph. [phone] MMG [facility] 0925 [facility] 2019-07-19 00:00:00 2019-07-19 00:00:00 Tory Rodrigues MD: [address] [facility] [address], [place] [address] , Ph. [phone] MMG [facility] OBGYN [id number] 0911 [facility] 2019-07-06 09:19:00 2019-07-06 09:19:00 Outpatient GRETCHEN RODRIGUES TORY [facility] [id number] [facility] 2019-07-05 00:00:00 2019-07-05 00:00:00 Tory Rodrigues MD: [address], [place] [address] , Ph. [phone] MMG [facility] OBGYN 28 [facility] 2019-06-05 00:00:00 2019-06-05 00:00:00 Tory Rodrigues MD: [address], [place] [address] , Ph. [phone] MMG [facility] OBGYN 29 [facility] 2019-05-08 00:00:00 2019-05-08 00:00:00 Tory Rodrigues MD: [address], [place] [address] , Ph. [phone] MMG [facility] O[facility]YN 0701 [facility] 2019-04-17 13:48:00 2019-04-17 19:06:00 Emergency ER MIKE LYONS [facility] [id number] [facility] 2019-04-10 12:12:00 2019-04-10 12:12:00 Outpatient TORY MARLEY [facility] [id number] [facility] 2019-04-10 00:00:00 2019-04-10 00:00:00 Tory Rodrigues MD: [address], [place] [address] , Ph. [phone] MMG [facility] 0603 [facility] 2019-04-04 00:00:00 2019-04-04 00:00:00 Bernardo Robles MD: [address], [place] [address] , Ph. [phone] MMG [facility] General surgery 0528 [facility] 2019-03-14 12:48:00 2019-03-16 12:45:00 Inpatient ER TORY RODRIGUES [facility] [id number] [facility] 2019-03-14 00:00:00 2019-03-14 00:00:00 Tory Rodrigues MD: [address], [place] [address] , Ph. [phone] [facility] 0507 [facility] 2019-02-27 20:24:00 2019-02-28 07:32:00 Emergency ER OWEN RINCON [facility] [id number] [facility] 2019-02-14 16:28:00 2019-02-16 13:00:00 Inpatient EL TORY RODRIGUES [facility] [id number] [facility] 2019-02-14 00:00:00 2019-02-14 00:00:00 Tory Rodrigues MD: [address], [place] [address] , Ph. [phone] MMG [facility] OBGY 0409 [facility] 2019-02-07 00:00:00 2019-02-07 00:00:00 Tory Rodrigues MD: [address], [place] [address] , Ph. [phone] MMG [facility] OBGYN 0402 [facility] 2019-01-26 09:24:00 2019-01-26 09:24:00 Outpatient TORY MARLEY [facility] [id number] [facility] 2019-01-26 00:00:00 2019-01-26 00:00:00 Tory Rodrigues MD: [address] [facility], [address], [place] [address] , Ph. [phone] [facility] [id number] 0321 [facility] 2019-01-24 15:52:00 2019-01-24 15:52:00 Outpatient GRETCHEN JOLENETORY SMALL [facility] [id number] [facility] 2019-01-03 11:55:00 2019-01-03 11:55:00 Outpatient GRETCHEN RODRIGUES TORY [facility] [id number] [facility] 2019-01-03 00:00:00 2019-01-03 00:00:00 Tory Rodrigues MD: [address] [facility], [address], [place] [address] , Ph. [phone] MMG [facility] [id number] 0226 [facility] 2018-11-25 20:29:00 2018-11-25 20:29:00 Emergency ER FABIO TOBAR [facility] [id number] [facility] 2018-01-20 16:27:00 2018-01-20 20:45:00 Emergency ER GRAZYNA PEDRAZA [facility] [id number] [facility] 2017-11-14 14:05:00 2017-11-14 16:35:00 Emergency ER MARY HOLLY [facility] [id number] [facility] 2016-11-09 21:51:00 2016-11-09 23:24:00 Emergency ER RAMIRO MAY [facility] [id number] [facility] 2016-06-26 10:24:00 2016-06-26 10:24:00 Outpatient TORY MARLEY [facility] [id number] [facility] 2015-11-14 15:25:00 2015-11-14 15:25:00 Outpatient KATELYNN PATEL [facility] [id number] [facility] 2015-11-09 16:47:00 2015-11-09 17:19:00 Emergency ER GRAZYNA PEDRAZA [facility] [id number] [facility] 2015-10-16 14:20:00 2015-10-16 15:56:00 Emergency ER RAMIRO MAY [facility] [id number] [facility] 2015-05-12 12:25:00 2015-05-12 14:27:00 Emergency ER YUNG MEDEIROS [facility] [id number] [facility] 2014-12-23 15:21:00 2014-12-23 20:00:00 Emergency ER Rene Goins [facility] [id number] [facility] 2014-09-11 10:40:00 2014-09-11 10:40:00 Outpatient TORY MARLEY [facility] [id number] [facility] 2014-09-09 14:01:00 2014-09-09 18:52:00 Emergency ER NATALIE HURD [facility] [id number] [facility] 2014-09-03 08:02:00 2014-09-03 10:15:00 Emergency ER NADINE PINTO [facility] [id number] [facility] 2014-08-06 13:02:00 2014-08-06 13:49:00 Emergency ER RAMIRO MAY [facility] [id number] [facility] 2013-03-30 12:05:00 2013-03-30 13:50:00 Emergency ER RAMIRO MAY [facility] [id number] [facility] 2013-02-01 08:56:00 2013-02-01 09:28:00 Emergency ER OWEN RINCON [facility] [id number] [facility] 2012-09-06 20:15:00 2012-09-06 22:25:00 Emergency ER RAMIRO MAY [facility] [id number] [facility] 2012-05-18 22:48:00 2012-05-19 00:24:00 Emergency ER YUNG MEDEIROS [facility] [id number] [facility] 2011-12-23 07:58:00 2011-12-23 10:25:00 Emergency ER OWEN R[facility] [id number] [facility] 2011-11-11 15:39:00 2011-11-13 10:42:00 Inpatient TORY MARLEY [facility] [id number] [facility] Results Test Description Test Time Test Comments Results Result [facility] [id number] 10:44:10* Test Item Value Reference Range Interpretation Comme nts Leukocytes (test code = Leukocytes) Negative Nitrite (test code = Nitrite) negative Urobilinogen (test code = Urobilinogen) 1 Protein (test code = Protein) Negative pH (test code = pH) 6.0 Blood (test code = Blood) Negative Specific Sheridan (test code = Specific Sheridan) 1.025 Ketone (test code = Ketone) Negative Bilirubin (test code = Bilirubin) Negative Glucose (test code = Glucose) Negative Appearance (test code = Appearance) Clear Color (test code = Color) Yellow [facility] [id number] 10:16:15* Test Item Value Reference Range Interpretation Comme nts Test (test code = Test) negative [facility]HCG [id number] 10:25:00* Test Item Value Reference Range Interpretation Comme nts HCG quantitative (test code = HCG quantitative) < 0.1 0-5 [facility] HospitalUrinalysis macro (dipstick) panel - [id number] 08:30:30* Test Item Value Reference Range Interpretation Comme nts Leukocytes (test code = Leukocytes) Negative Nitrite (test code = Nitrite) negative Urobilinogen (test code = Urobilinogen) 1 Protein (test code = Protein) Negative pH (test code = pH) 6.0 Blood (test code = Blood) Negative Specific Sheridan (test code = Specific Sheridan) 1.030 Ketone (test code = Ketone) Negative Bilirubin (test code = Bilirubin) Negative Glucose (test code = Glucose) Negative Appearance (test code = Appearance) Clear Color (test code = Color) Yellow [facility] Grouppregnancy test, [id number] 08:25:46* Test Item Value Reference Range Interpretation Comme nts Test (test code = Test) negative [facility] [id number] 07:34:00 * Test Item Value Reference Range Interpretation Comme nts mg - cancer history assessment result (test code = [facility] [place] cancer history assessment result) meets criteria A [facility] Grouppregnancy test, [id number] 16:10:50* Test Item Value Reference Range Interpretation Comme nts Test (test code = Test) negative [facility] HospitalMicroscopic observation [Identifier] in Vaginal fluid by Wet qaqfgwafhgz8749-05-34 10:17:41* Test Item Value Reference Range Interpretation Comme nts Clue Cells (test code = Clue Cells) negative WBCs (test code = WBCs) negative Trichomonads (test code = Trichomonads) negative Epithelial cells (test code = Epithelial cells) normal RBCs (test code = RBCs) positive [facility] Gr[facility]ppregnancy test, yrbrn1563-71-27 18:02:09* Test Item Value Reference Range Interpretation Comme nts Test (test code = Test) negative [facility], [id number] 11:50:35* Test Item Value Reference Range Interpretation Comme nts Test (test code = Test) negative [facility], [id number] 15:40:27* Test Item Value Reference Range Interpretation Comme nts Test (test code = Test) negative [facility], uhqcv2809-56-23 14:38:52* Test Item Value Reference Range Interpretation Comme nts Test (test code = Test) negative [facility] HospitalCT + NG + TV, DNA, urine/tebc2744-16-43 00:00:00* Test Item Value Reference Range Interpretation [...] to antibiotic resistance by molecular analysis)) negative [facility], LB + [id number] 00:00:00* Test Item Value Reference Range Interpretation Comme nts HPV type-detect 4.0 by real time PCR high risk subtypes only (test code = HPV type-detect 4.0 by real time PCR high risk subtypes only) not detected liquid Pap test (test code = liquid Pap test) normal [facility] W Auto Differential panel - Sslpj3629-82-45 12:15:00 * Test Item Value Reference Range Interpretation Comme nts white blood count (test code = white blood count) 5.0 K/uL 4.0-11.5 red blood count (test code = red blood count) 4.15 M/uL 3.80-5.20 hemoglobin (test code = hemoglobin) 12.9 g/dL 10.5-15.7 hematocrit (test code = hematocrit) 40.9 % 34.0-50.0 MCV [Entitic volume] (test c ode = 91056-5) 98.6 fL 86-100 mean corpuscular hemoglobin (test [...] neutrophils/100 leukocytes in Blood (test code = 57230-7) 46.5 % 44.4-80.1 Immature granulocytes [#/vol ume] in Blood (test code = 40136-9) 0.0 K/uL 0.0-0.03 lymphocyte% (test code = lymphocyte%) 44.6 % 10.0-50.0 mono % (test code = mono %) 6.3 % 3.6-12.0 eos % (test code = eos %) 1.6 % 0.0-5.4 Basophils/100 leukocytes in Unspecified specimen (test code = 75670-8) 1.0 % 0.1-1.2 Band form neutrophils [#/vol ume] in Blood (test code = 85017-2) 2.34 K/uL 1.56-6.13 Lymphocytes [#/volume] in Unspecified specimen by Automated count (test code = 82037-2) 2.3 K/uL 1.18-3.74 mono # (test code = mono #) 0.32 K/uL 0.24-0.86 eos # (test code = eos #) 0.08 K/uL 0.04-0.36 basophil # (test code = baso damir #) 0.05 K/uL 0.01-0.08 NRBC% (test code = NRBC%) 0 /100 WBC 0-0.2 NRBC# (test code = NRBC#) 0 K/uL [facility] HospitalComprehensive metabolic 2000 panel - Serum [...] (test code = 6768-6) 66 U/L 35-105 [facility] GroupReagin Ab [Presence] in Serum by [id number] 00:00:00* Test Item Value Reference Range Interpretation Comme nts Reagin Ab [Presence] in Seru m by RPR (test code = 70249-1) nonreactive nonreactive [facility] GroupDifferential panel, method unspecified - [id number] 00:00:00NeutrophilsBandLymphocyteAtypical LymphMonocyteEosinophilBasophilMetamyelocyteMyelocytePromyelocyteBlastsNucleated Red Blood CellAbs Neutrophil Count (Man)Abs Lymph Count (Man)Abs Monocyte Count (Man)Abs Eosinophil Count (Man)Abs Basophil Count (Man)Platelet EstimatePlatelet MorphologyPolychromasiaMacrocytosisHypersegmented Polys [facility] HospitalThyrotropin [Units/volume] in Serum or [id number] 00:00:00* Test Item Value Reference Range Interpretation Comme nts Thyrotropin [Units/volume] i n Serum or Plasma (test code = 3016-3) 0.95 uIU/mL 0.36-3.74 [facility] HospitalThyroxine (T4) free [Mass/volume] in Serum or Plasma 2021-08-19 00:00:00* Test Item Value Reference Range Interpretation Comme nts free T4 (test code = free T4) 0.96 NG/dL 0.93-1.7 [facility] HospitalHIV 1+2 Ab [Presence] in [id number] 00:00:00HIV P24 AgHIV-1/2 AbMaHighland Community HospitalHepatitis B virus surface Ag [Presence] in Iabof3581-63-28 00:00:00* Test Item Value Reference Range Interpretation Comme nts .hepatitis B surface antigen (test code = .hepatitis B surface antigen) negative negative [facility] HospitalUrinalysis macro (dipstick) panel - [id number] 16:06:55* Test Item Value Reference Range Interpretation Comme nts Leukocytes (test code = Leukocytes) Negative Nitrite (test code = Nitrite) negative Urobilinogen (test code = Urobilinogen) .2 Protein (test code = Protein) Negative pH (test code = pH) 7.0 Blood (test code = Blood) Non-Hemolyzed: Trace Specific Sheridan (test code = Specific Sheridan) 1.020 Ketone (test code = Ketone) Negative Bilirubin (test code = Bilirubin) Negative Glucose (test code = Glucose) Negative Appearance (test code = Appearance) Clear Color (test code = Color) Yellow [facility]pregnancy test, [id number] 16:22:27* Test Item Value Reference Range Interpretation Comme nts Test (test code = Test) negative [facility] GroupUrinalysis macro (dipstick) panel - [id number] 16:22:10* Test Item Value Reference Range Interpretation Comme nts Leukocytes (test code = Leukocytes) Negative Nitrite (test code = Nitrite) negative Urobilinogen (test code = Urobilinogen) .2 Protein (test code = Protein) Negative pH (test code = pH) 7.0 Blood (test code = Blood) Negative Specific Sheridan (test code = Specific Sheridan) 1.025 Ketone (test code = Ketone) Negative Bilirubin (test code = Bilirubin) Negative Glucose (test code = Glucose) Negative Appearance (test code = Appearance) Clear Color (test code = Color) Yellow [facility] GroupReagin Ab [Presence] in Serum by [id number] 06:56:00* Test Item Value Reference Range Interpretation Comme nts Reagin Ab [Presence] in Seru m by RPR (test code = 57710-8) nonreactive nonreactive [facility] GroupHIV 1+2 Ab [Presence] in Mhtqk7010-24-22 06:56:00HIV P24 AgHIV-1/2 AbMatagoPearl River County HospitalHepatitis B virus surface Ag [Presence] in Bdbvy1286-03-86 06:56:00* Test Item Value Reference Range Interpretation Comme nts .hepatitis B surface antigen (test code = .hepatitis B surface antigen) negative negative [facility] HospitalHepatitis C virus RNA [Units/volume] (viral load) in Serum or Plasma by Probe with signal ycmhryodgxaxy0601-97-81 06:56:00* Test Item Value Reference Range Interpretation Comme nts hepatitis C RNA CHICO,qual (te st code = hepatitis C RNA CHICO,qual) negative negative [facility] Grouppregnancy test, enyuh0174-95-80 11:12:00* Test Item Value Reference Range Interpretation Comme nts Test (test code = Test) negative [facility] HospitalPLACENTA THIRD [id number] 17:41:00 RUN DATE: 08/31/19 [facility] PAGE 1 RUN TIME: 914 Specimen Inquiry RUN USER: INTERFACE -------- ----PATIENT: ANJELICA NAVARRO LOC: JULY U #: [id number] AGE/SX: 29/F ROOM: [facility] RE08/02/19REGDR: Isaiah Chase MD : 89 BED: A DIS: 08/30/19 STATUS: DIS IN TLOC: SPEC #: [id number] RECD: 08/26/19 STATUS: SANDY REBritney #: [id number] ILENE: 08/26/19- SUBM DR: Isaiah Chase MD ENTERED: 08/28/19 SP TYPE: PLACIII OTHR PEREZ: ORDERED: LEVEL V SURGICA CODES: [id number] - PLACENTA, NOS PROCEDURES: LEVEL V SURGICA (Incomplete) TISSUES: PLACENTA, NOS - PLACENTA CLINICAL HISTORY 28 year old, 35.5 weeks, [id number], section, abnormal cord doppler, severe IUGR, prematurity, non-reassuring monitoring, increased SD ratios (kr) FINAL DIAGNOSIS Placenta, 35.5 weeks gestational age, section: - third trimester placenta, 300 gms (10th percentile) - meconium macrophages within feta l membranes - patchy villous edema - marginally inserted trivascular umbilical cord and membranes free of inflammation CPT code(s): 24266 [facility] 08/30/19 GROSS DESCRIPTION The specimen was received [...] 13.5 x 3.0 cm in greatest dimension CONTINUEDON NEXT PAGE RUN DATE: 08/31/19 [facility] PAGE 2 RUN TIME: 914 Specimen Inquiry RUN USER: INTERFACE SPEC #: [id number] PATIENT: ANJELICA NAVARRO #[id number] (Continued) GROSS DESCRIPTION (Continued) Accessory lobes: None [...] code = PLTMR) NORMAL NORMAL CBC W/AUTO [id number] 05:33:00* Test Item Value Reference Range Interpretation [...] code = PLTMR) NORMAL NORMAL CBC W/AUTO [id number] 05:29:00* Test Item Value Reference Range Interpretation [...] (test code = PLTMR) NORMAL NORMAL URINALYSIS [id number] 22:37:00* Test Item Value Reference Range Interpretation [...] = MUCU) RARE NONE SEEN CBC W/AUTO [id number] 18:07:00* Test Item Value Reference Range Interpretation [...] = PLTMR) NORMAL NORMAL AG HEPATITIS B [id number] 00:46:00* Test Item Value Reference Range Interpretation Comme nts AG HEPATITIS B SURFACE (test code = HBSAG) NONREACTIVE NONREACTIVE IS CONSENT FORM SIGNED FOR HIV TESTING? YAB HEPATITIS C [id number] 00:46:00* Test Item Value Reference Range Interpretation Comme nts AB HEPATITIS C (test code = HCVAB) NONREACTIVE NONREACTIVE SIGNAL TO CUTOFF (test code = CUTOFF) 0.12 <0.80 N IS CONSENT FORM SIGNED FOR HIV TESTING? YRUBELLA [id number] 00:46:00* Test Item Value Reference Range Interpretation Comme nts RUBELLA SCREEN (test code = RUBSC) 78.5 IUnit/ml Results >10.0IUn its/ml are considered positive inaccordance with the CLSI guidelines and based on the WHO International Standard for Anti-Rubella serum as anindicator of immune status and a breakpoint to detect mostseropositive persons. IS CONSENT FORM SIGNED FOR HIV TESTING? YAB [id number] 00:46:00* Test Item Value Reference Range Interpretation Comme nts AB TREPONEMA (test code = TREPAB) NONREACTIVE NONREACTIVE IS CONSENT FORM SIGNED FOR HIV TESTING? YAB HIV 1 00:46:00* Test Item Value Reference Range Interpretation Comme nts AB HIV 1 2 (test code = [id number]) NONREACTIVE NONREACTIVE Done by [employer] HIV Ag/Ab Combo Screen IS CONSENT FORM SIGNED FOR HIV TESTING? YAG HEPATITIS B [id number] 00:10:00* Test Item Value Reference Range Interpretation Comme nts AG HEPATITIS B SURFACE (test code = HBSAG) NONREACTIVE NONREACTIVE IS CONSENT FORM SIGNED FOR HIV TESTING? YAB HEPATITIS C [id number] 00:10:00* Test Item Value Reference Range Interpretation Comme nts AB HEPATITIS C (test code = HCVAB) NONREACTIVE SIGNAL TO CUTOFF (test code = CUTOFF) <0.80 IS CONSENT FORM SIGNED FOR HIV TESTING? YRUBELLA [id number] 00:10:00* Test Item Value Reference Range Interpretation Comme nts RUBELLA SCREEN (test code = RUBSC) 78.5 IUnit/ml Results >10.0IUn its/ml are considered positive inaccordance with the CLSI guidelines and based on the WHO International Standard for Anti-Rubella serum as anindicator of immune status and a breakpoint to detect mostseropositive persons. IS CONSENT FORM SIGNED FOR HIV TESTING? YAB [id number] 00:10:00* Test Item Value Reference Range Interpretation Comme nts AB TREPONEMA (test code = TREPAB) NONREACTIVE NONREACTIVE IS CONSENT FORM SIGNED FOR HIV TESTING? YAB HIV 1 00:10:00* Test Item Value Reference Range Interpretation Comme nts AB HIV 1 2 (test code = YSQ48QB) NONREACTIVE IS CONSENT FORM SIGNED FOR HIV TESTING? YCBC W/AUTO [id number] 23:05:00* Test Item Value Reference Range Interpretation [...] = PLTMR) NORMAL NORMAL Biophysical profile panel [id number] 09:13:00* Test Item Value Reference Range Interpretation Comme nts Amniotic Fluid Index (test c ode = Amniotic Fluid Index) 2 Tone (test code = Tone) 2 Breathing (test code = Breathing) 2 Movement (test code = Movement) 2 [facility] HospitalUrinalysis macro (dipstick) panel - [id number] 09:21:00* Test Item Value Reference Range Interpretation Comme nts Leukocytes (test code = Leukocytes) Trace Nitrite (test code = Nitrite) negative Urobilinogen (test code = Urobilinogen) .2 Protein (test code = Protein) Negative pH (test code = pH) 7.0 Blood (test code = Blood) Negative Specific Sheridan (test code = Specific Sheridan) 1.020 Ketone (test code = Ketone) Negative Bilirubin (test code = Bilirubin) Negative Glucose (test code = Glucose) Negative Appearance (test code = Appearance) Clear Color (test code = Color) Dark Yellow [facility] HospitalUrinalysis macro (dipstick) panel - [id number] 11:07:00* Test Item Value Reference Range Interpretation Comme nts Leukocytes (test code = Leukocytes) Negative Nitrite (test code = Nitrite) negative Urobilinogen (test code = Urobilinogen) 1 Protein (test code = Protein) Negative pH (test code = pH) 7.0 Blood (test code = Blood) Negative Specific Sheridan (test code = Specific Sheridan) 1.020 Ketone (test code = Ketone) Negative Bilirubin (test code = Bilirubin) Negative Glucose (test code = Glucose) Negative Appearance (test code = Appearance) Clear Color (test code = Color) Yellow [facility] HospitalCandida sp DNA [Presence] in Vaginal fluid by Probe and target amplification [id number] 00:00:00* Test Item Value Reference Range Interpretation [...] luis m glabrata by real-time PCR) negative [facility] HospitalColony count [#/volume] in [id number] 00:00:00* Test Item Value Reference Range Interpretation [...] = pseudomonas aeruginosa by real-time PCR) negative [facility] Hospitalbacterial vaginosis panel, [id number] 00:00:00* Test Item Value Reference Range Interpretation [...] panel) by real time PCR) see comment [facility] [id number] 09:45:00Results [facility] W Auto Differential panel - [id number] 04:12:00 * Test Item Value Reference Range Interpretation Comme nts white blood count (test code = white blood count) 7.2 K/uL 4.0-11.5 red blood count (test code = red blood count) 3.69 M/uL 3.80-5.20 L Hemoglobin [Mass/volume] in Blood (test code = 718-7) 11.5 g/dL 10.5-15.7 hematocrit (test code = hematocrit) 35.0 % 34.0-50.0 Erythrocyte mean corpuscular volume [Entitic volume] (test code = 13286-5) 94.8 fL 78-98 Erythrocyte mean corpuscular hemoglobin [Entitic mass] (test code = 52412-4) 31.3 pg 26.2-33.4 mean corpuscular HGB conc (t est code = mean corpuscular HGB conc) 33.0 g/dL 31.5-36.2 red cell distribution width (test code = red cell distribution width) 11.3 % 11.5-15.5 L Platelets [#/volume] in Bloo d (test code = 12303-9) 221 K/uL 137-338 Platelet mean volume [Entiti c volume] in Blood (test code = 87502-2) 8.5 fL 8.4-11.8 Neutrophils.band form/100 leukocytes in Blood (test code = 45536-4) 95.1 % 44.4-80.1 Lymphocytes/100 leukocytes i n Body fluid (test code = 25003-6) 4.0 % 10.0-50.0 L Monocytes/100 leukocytes in Blood by Automated count (test code = 5905-5) 0.6 % 3.6-12.04 L Eosinophils/100 leukocytes i n Blood by Automated count (test code = 713-8) 0.1 % 0.0-5.41 Basophils/100 leukocytes in Unspecified specimen (test code = 79884-3) 0.2 % 0.0-0.79 [facility]different[facility] panel, [id number] 04:12:00 NeutrophilsBandLymphocyteAtypical LymphMonocyteEosinophilBasophilPlatelet EstimatePlatelet MorphologyTarget CellsToxic GranulationToxic Vacuolation [facility] W Auto Differential panel - [id number] 03:30:00 * Test Item Value Reference Range [...] corpuscular volume [Entitic volume] (test code = 09140-7) 95.8 fL 78-98 Erythrocyte mean corpuscular hemoglobin [Entitic mass] (test code = 46572-6) 31.2 pg 26.2-33.4 mean corpuscular HGB conc (t est code = mean corpuscular HGB conc) 32.6 g/dL 31.5-36.2 red cell distribution width (test code = red cell distribution width) 11.2 % 11.5-15.5 L Platelets [#/volume] in Bloo d (test code = 13045-3) 184 K/uL 137-338 Platelet mean volume [Entiti c volume] in Blood (test code = 86453-9) 8.4 fL 8.4-11.8 Neutrophils.band form/100 leukocytes in Blood (test code = 90243-0) 59.6 % 44.4-80.1 Lymphocytes/100 leukocytes i n Body fluid (test code = 01400-8) 31.9 % 10.0-50.0 Monocytes/100 leukocytes in Blood by Automated count (test code = 5905-5) 5.9 % 3.6-12.04 Eosinophils/100 leukocytes i n Blood by Automated count (test code = 713-8) 1.0 % 0.0-5.41 Basophils/100 leukocytes in Unspecified specimen (test code = 54850-6) 1.5 % 0.0-0.79 H [facility]different[facility] panel, [id number] 03:30:00 NeutrophilsLymphocyteMonocytePlatelet EstimatePlatelet MorphologyMagee General HospitalComprehensive metabolic 2000 panel - Serum or [id number] 03:30:00* Test Item Value Reference Range Interpretation [...] (test code = 6768-6) 52 U/L 35-105 [facility] Auto Differential panel - [id number] 12:57:00 * Test Item Value Reference Range Interpretation Comme nts white blood count (test code = white blood count) 4.5 K/uL 4.0-11.5 red blood count (test code = red blood count) 4.04 M/uL 3.80-5.20 Hemoglobin [Mass/volume] in Blood (test code = 718-7) 12.7 g/dL 10.5-15.7 hematocrit (test code = hematocrit) 38.3 % 34.0-50.0 Erythrocyte mean corpuscular volume [Entitic volume] (test code = 85565-0) 94.8 fL 78-98 Erythrocyte mean corpuscular hemoglobin [Entitic mass] (test code = 50675-3) 31.5 pg 26.2-33.4 mean corpuscular HGB conc (t est code = mean corpuscular HGB conc) 33.2 g/dL 31.5-36.2 red cell distribution width (test code = red cell distribution width) 11.2 % 11.5-15.5 L Platelets [#/volume] in Bloo d (test code = 36108-2) 261 K/uL 137-338 Platelet mean volume [Entiti c volume] in Blood (test code = 29664-5) 9.0 fL 8.4-11.8 Neutrophils.band form/100 leukocytes in Blood (test code = 59227-9) 67.1 % 44.4-80.1 Lymphocytes/100 leukocytes i n Body fluid (test code = 33075-1) 24.5 % 10.0-50.0 Monocytes/100 leukocytes in Blood by Automated count (test code = 5905-5) 6.1 % 3.6-12.04 Eosinophils/100 leukocytes i n Blood by Automated count (test code = 713-8) 0.4 % 0.0-5.41 Basophils/100 leukocytes in Unspecified specimen (test code = 11017-3) 1.9 % 0.0-0.79 H [facility]different[facility] panel, [id number] 12:57:00 NeutrophilsLymphocyteMonocytePlatelet EstimatePlatelet MorphologyMaHighland Community HospitalComprehensive metabolic 2000 panel - Serum or Fiwlfc8112-33-06 12:57:00* Test Item Value Reference Range Interpretation [...] (test code = 6768-6) 71 U/L 35-105 [facility] GroupUrinalysis macro (dipstick) panel - [id number] 12:22:43* Test Item Value Reference Range Interpretation Comme nts Leukocytes (test code = Leukocytes) Trace Nitrite (test code = Nitrite) positive Urobilinogen (test code = Urobilinogen) 8 Protein (test code = Protein) 100 pH (test code = pH) 6.0 Blood (test code = Blood) Negative Specific Sheridan (test code = Specific Sheridan) 1.020 Ketone (test code = Ketone) Large (80) Bilirubin (test code = Bilirubin) Large Glucose (test code = Glucose) Negative Appearance (test code = Appearance) Clear Color (test code = Color) Dark Yellow [facility] HospitalHemoglobin and Hematocrit panel - [id number] 06:06:00* Test Item Value Reference Range Interpretation Comme nts Hemoglobin [Mass/volume] in Blood (test code = 718-7) 13.1 g/dL 10.5-15.7 hematocrit (test code = hematocrit) 39.2 % 34.0-50.0 [facility] HospitalComprehensive metabolic 2000 panel - Serum [...] (test code = 6768-6) 54 U/L 35-105 [facility] HospitalHemoglobin and Hematocrit panel - [id number] 08:02:00* Test Item Value Reference Range Interpretation Comme nts Hemoglobin [Mass/volume] in Blood (test code = 718-7) 11.9 g/dL 10.5-15.7 hematocrit (test code = hematocrit) 34.5 % 34.0-50.0 [facility] HospitalComprehensive [facility] 2000 panel - Serum [...] (test code = 6768-6) 48 U/L 35-105 [facility] W Auto Differential panel - [id number] 02:57:00 * Test Item Value Reference Range Interpretation Comme nts white blood count (test code = white blood count) 5.1 K/uL 4.0-11.5 red blood count (test code = red blood count) 4.29 M/uL 3.80-5.20 Hemoglobin [Mass/volume] in Blood (test code = 718-7) 14.0 g/dL 10.5-15.7 hematocrit (test code = hematocrit) 41.3 % 34.0-50.0 Erythrocyte mean corpuscular volume [Entitic volume] (test code = 73163-3) 96.3 fL 78-98 Erythrocyte mean corpuscular hemoglobin [Entitic mass] (test code = 64528-0) 32.6 pg 26.2-33.4 mean corpuscular HGB conc (t est code = mean corpuscular HGB conc) 33.9 g/dL 31.5-36.2 red cell distribution width (test code = red cell distribution width) 10.3 % 11.5-15.5 L Platelets [#/volume] in Bloo d (test code = 05322-9) 216 K/uL 137-338 Platelet mean volume [Entiti c volume] in Blood (test code = 47151-2) 9.2 fL 8.4-11.8 Neutrophils.band form/100 leukocytes in Blood (test code = 09564-0) 69.8 % 44.4-80.1 Lymphocytes/100 leukocytes i n Body fluid (test code = 77904-0) 22.0 % 10.0-50.0 Monocytes/100 leukocytes in Blood by Automated count (test code = 5905-5) 6.1 % 3.6-12.04 Eosinophils/100 leukocytes i n Blood by Automated count (test code = 713-8) 0.3 % 0.0-5.41 Basophils/100 leukocytes in Blood by Automated count (test code = 706-2) 1.8 % 0.0-0.79 H [facility]different[facility] panel, [id number] 02:57:00 NeutrophilsBandLymphocyteAtypical LymphMonocyteEosinophilBasophilPlatelet EstimatePlatelet MorphologyPoikilocytosisTarget CellsHypersegmented PolysRouleauToxic VacuolationSmudge CellsMaHighland Community HospitalComprehensive metabolic 2000 panel - Serum or Vgpeet9414-34-98 02:57:00* Test Item Value Reference Range Interpretation [...] (test code = 6768-6) 57 U/L 35-105 [facility] HospitalRubella virus IgG Ab [Titer] in [id number] 07:30:00 * Test Item Value Reference Range Interpretation Comme nts Rubella virus IgG Ab [Units/volume] in Serum by Immunoassay (test code = 5334-8) 106.7 [IU]/mL [facility] W Auto Differential panel - [id number] 07:30:00 * Test Item Value Reference Range Interpretation Comme nts white blood count (test code = white blood count) 5.0 K/uL 4.0-11.5 red blood count (test code = red blood count) 3.92 M/uL 3.80-5.20 Hemoglobin [Mass/volume] in Blood (test code = 718-7) 12.9 g/dL 10.5-15.7 hematocrit (test code = hematocrit) 38.7 % 34.0-50.0 Erythrocyte mean corpuscular volume [Entitic volume] (test code = 19247-7) 98.7 fL 78-98 H Erythrocyte mean corpuscular hemoglobin [Entitic mass] (test code = 31108-9) 33.0 pg 26.2-33.4 mean corpuscular HGB conc (t est code = mean corpuscular HGB conc) 33.4 g/dL 31.5-36.2 red cell distribution width (test code = red cell distribution width) 11.3 % 11.5-15.5 L Platelets [#/volume] in Bloo d (test code = 93865-3) 207 K/uL 137-338 Platelet mean volume [Entiti c volume] in Blood (test code = 69767-6) 7.7 fL 8.4-11.8 L Neutrophils.band form/100 leukocytes in Blood (test code = 09020-3) 54.8 % 44.4-80.1 Lymphocytes/100 leukocytes i n Body fluid (test code = 59198-3) 35.5 % 10.0-50.0 Monocytes/100 leukocytes in Blood by Automated count (test code = 5905-5) 6.5 % 3.6-12.04 Eosinophils/100 leukocytes i n Blood by Automated count (test code = 713-8) 1.4 % 0.0-5.41 Basophils/100 leukocytes in Blood by Automated count (test code = 706-2) 1.7 % 0.0-0.79 H [facility]differential panel, [id number] 07:30:00 NeutrophilsBandLymphocyteMonocytePlatelet EstimateMatagorda Medical GroupRubella virus Ab [Titer] in Ymcde9104-48-16 07:30:00* Test Item Value Reference Range Interpretation Comme nts Rubella virus IgG Ab [Units/volume] in Serum by Immunoassay (test code = 5334-8) 106.7 [IU]/mL [facility] GroupHIV 1+2 Ab [Presence] in [id number] 07:30:00HIV P24 AgHIV-1/2 AbMatagorda Medical GroupABO & Rh group [Type] in [id number] 07:30:00* Test Item Value Reference Range Interpretation Comme nts Rh [Type] in Blood (test cod e = 08800-5) 4+ ABO and Rh group panel - Blo od (test code = 54274-1) Ab positive [facility] GroupBlood group antibody screen [Presence] in Serum or Plasma 2019-01-26 07:30:00* Test Item Value Reference Range Interpretation Comme nts Blood group antibody screen [Presence] in Serum or Plasma (test code = 890-4) negative [facility]Re[facility] Ab [Presence] in Serum by [id number] 07:30:00* Test Item Value Reference Range Interpretation Comme nts Reagin Ab [Presence] in Seru m by RPR (test code = 75817-9) nonreactive nonreactive [facility] HospitalHepatitis B virus surface Ag [Presence] in Serum 2019-01-26 07:30:00* Test Item Value Reference Range Interpretation Comme nts .hepatitis B surface antigen (test code = .hepatitis B surface antigen) negative negative [facility] HospitalBacteria identified in Urine by [id number] 07:30:00* Test Item Value Reference Range Interpretation Comme nts Bacteria identified in Urine by Culture (test code = 630-4) no growth at 48 hrs. [facility] HospitalChoriogonadotropin.beta subunit [Units/volume] in Serum or Sszapo9254-93-36 02:05:00* Test Item Value Reference Range Interpretation Comme nts HCG quantitative (test code = HCG quantitative) 4590.0 mIU/mL 0-5 [facility] [employer] Differential panel - Ihgbq8808-06-40 11:00:00 * Test Item Value Reference Range Interpretation Comme nts white blood count (test code = white blood count) 4.9 K/uL 4.0-11.5 red blood count (test code = red blood count) 4.02 M/uL 3.80-5.20 Hemoglobin [Mass/volume] in Blood (test code = 718-7) 13.0 g/dL 10.5-15.7 hematocrit (test code = hematocrit) 40.1 % 34.0-50.0 Erythrocyte mean corpuscular volume [Entitic volume] (test code = 15467-1) 99.7 fL 78-98 H Erythrocyte mean corpuscular hemoglobin [Entitic mass] (test code = 04856-8) 32.4 pg 26.2-33.4 mean corpuscular HGB conc (t est code = mean corpuscular HGB conc) 32.5 g/dL 31.5-36.2 red cell distribution width (test code = red cell distribution width) 11.4 % 11.5-15.5 L Platelets [#/volume] in Bloo d (test code = 78588-2) 212 K/uL 137-338 Platelet mean volume [Entiti c volume] in Blood (test code = 20248-5) 8.4 fL 8.4-11.8 Neutrophils.band form/100 leukocytes in Blood (test code = 23385-6) 53.6 % 44.4-80.1 Lymphocytes/100 leukocytes i n Body fluid (test code = 17261-8) 37.4 % 10.0-50.0 Monocytes/100 leukocytes in Blood by Automated count (test code = 5905-5) 5.5 % 3.6-12.04 Eosinophils/100 leukocytes i n Blood by Automated count (test code = 713-8) 1.9 % 0.0-5.41 Basophils/100 leukocytes in Blood by Automated count (test code = 706-2) 1.6 % 0.0-0.79 H [facility]differential panel, [id number] 11:00:00 NeutrophilsBandLymphocyteMonocyteEosinophilBasophilPlatelet EstimatePlatelet MorphologyPolychromasiaHypochromasiaPoikilocytosisBasophilic StipplingAnisocytosisMicrocytosisMacrocytosisOvalocytesStomatocyteBurr CellsAcanthocytesMaHighland Community HospitalReagin Ab [Presence] in Serum by RPR 2019-01-03 11:00:00* Test Item Value Reference Range Interpretation Comme nts Reagin Ab [Presence] in Seru m by RPR (test code = 51678-0) nonreactive nonreactive [facility] HospitalComprehensive metabolic 2000 panel - Serum [...] (test code = 6768-6) 59 U/L 35-105 [facility] HospitalHIV 1+2 Ab [Presence] in Bihuf8789-63-94 11:00:00HIV P24 AgHIV-1/2 AbMaHighland Community HospitalHepatitis B virus surface Ag [Presence] in Tazuk6439-24-64 11:00:00* Test Item Value Reference Range Interpretation Comme nts .hepatitis B surface antigen (test code = .hepatitis B surface antigen) negative negative [facility] Notes Date/Time Note Provider Source 2024-07-25 10:23:46 Chief Complaint Patient presents with STD 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 Wants to get checked for STD Althea Zarate LVN T [facility] 2024-02-24 09:24:06 Chief Complaint Patient presents with Anxiety Follow up on anxiety and depression. She states that she feels the same. The medication for headaches are working well. Marce Castellano MA II Marce Castellano MA, II [facility] 2024-01-25 13:20:53 Chief Complaint Patient presents with Headache Headaches that she's had for years. No nausea or vomiting. The pain is either on the right side or the left side. No visual disturbance. No prescribed medications. OTC meds are no longer working. Marce Castellano MA II Marce Castellano MA, II [facility] 2023-12-07 14:20:25 Chief Complaint Patient presents with Cough Cough for 1 month Marce Castellano MA II S AND DISTRIBUTION CLERK Marce Castellano MA, II [facility] 2019-08-29 21:34:00 [facility] OB Disch REPORT#:[id number] REPORT STATUS: Signed DATE:08/29/19 TIME: 2133 PATIENT: ANJELICA NAVARRO UNIT #: [id number] ROOM/BED: : 90 AGE: 29 SEX: F [...] blood loss due to surgery at 2137 [facility] #:[id number] END OF REPORT [facility] 2019-08-29 19:07:00 [id number] [facility] [place] [address] [place], [place] [address] PATIENT NAME: ANJELICA NAVARRO ADMIT DATE: 08/02/19 ACCOUNT NO: [id number] ROOM NO: .2023 AGE: 29 SEX: F [...] section via Pfannenstiel. SURGEON: Isaiah Chase MD MODEL AND DYE PERSON: Cyndi Jarvis SA COMPLICATIONS: None. ESTIMATED BLOOD [...] Placenta. Dictated By: Isaiah Chase MD WT: OP:DOMINGUEZ/SHANIA/RMOAN Conf#: [id number]/DID#: [id number] Authenticated by Isaiah Chase MD On 09/27/2019 06:43:29 AM at 0643 PATIENT NAME: ANJELICA NAVARRO [facility] 2019-08-28 21:20:00 [facility] OB Postpart Progr Note REPORT#:[id number] REPORT STATUS: Signed DATE:08/28/19 TIME: 2119 PATIENT: ANJELICA NAVARRO UNIT #: [id number] ROOM/BED: . : 90 AGE: 29 SEX: F ATTEND: [...] progress Plan: routine care at 2120 RPT #:[id number] END OF REPORT [facility] 2019-08-27 16:35:00 [facility] OB Postpart Progr Note REPORT#:[id number] REPORT STATUS: Signed DATE:08/27/19 TIME: 1634 PATIENT: ANJELICA NAVARRO UNIT #: [id number] ROOM/BED: : 90 AGE: 29 SEX: F [...] progress Plan: routine care at 1635 RPT #:[id number] END OF REPORT [facility] 2019-08-25 20:54:00 [facility] OB Antepartum Prog Note REPORT#:[id number] REPORT STATUS: Signed DATE:08/25/19 TIME: 2053 PATIENT: ANJELICA NAVARRO UNIT #: [id number] ROOM/BED: [address] : 90 AGE: 29 SEX: F [...] TESTING, otherwise in am at 2100 RPT #:[id number] END OF REPORT [facility] 2019-08-24 20:53:00 [facility] OB Antepartum Prog Note REPORT#:[id number] REPORT STATUS: Signed DATE:08/24/19 TIME: 2052 PATIENT: ANJELICA NAVARRO UNIT #: [id number] ROOM/BED: [address] : 90 AGE: 29 SEX: F [...] Temp 98.2 08/24 09 Resp 18 08/24 09 B/P Mean 93.0 08/24 916 B/P 120/76 08/24 916 Pulse 84 08/24 916 Pulse Ox 97 08/23 0832 Vital Signs Date Temp Pulse Resp B/P B/P Mean Pulse Ox FiO2 08/23-08/24 98.1-98.2 74-84 -18 100-120/65-76 77.0-93.0 Patient Weight Weight (lb): 128 [...] TESTING, otherwise THIS WEDNESDAY at 2053 RPT #:[id number] END OF REPORT [facility] 2019-08-23 20:03:00 [facility] Antepartum Prog Note REPORT#:[id number] REPORT STATUS: Signed DATE:08/23/19 TIME: 2002 PATIENT: ANJELICA NAVARRO UNIT #: [id number] ROOM/BED: [address] : 90 AGE: 29 SEX: F [...] TESTING, otherwise THIS WEDNESDAY at 2004 RPT #:[id number] END OF REPORT [facility] 2019-08-22 17:12:00 [facility] OB Antepartum Prog Note REPORT#:[id number] REPORT STATUS: Signed DATE:08/22/19 TIME: 1712 PATIENT: ANJELICA NAVARRO UNIT #: [id number] ROOM/BED: [address] : 90 AGE: 29 SEX: F [...] TESTING, otherwise THIS WEDNESDAY at 1713 RPT #:[id number] END OF REPORT [facility] 2019-08-21 12:42:00 [facility] OB Antepartum Prog Note REPORT#:[id number] REPORT STATUS: Signed DATE:08/21/19 TIME: 1242 PATIENT: ANJELICA NAVARRO UNIT #: [id number] ROOM/BED: [facility] : 90 AGE: 29 SEX: F ATTEND: [...] pt Dr rivera aware at 1424 RPT #:[id number] END OF REPORT [facility] 2019-08-20 12:53:00 [facility] OB Antepartum Prog Note REPORT#:[id number] REPORT STATUS: Signed DATE:08/20/19 TIME: 1253 PATIENT: ANJELICA NAVARRO UNIT #: [id number] ROOM/BED: 3212-A : 90 AGE: 29 SEX: [...] at 35- 36 weeks at 1253 RPT #:[id number] END OF REPORT [facility] 2019-08-19 11:54:00 [facility] OB Antepartum Prog Note REPORT#:[id number] REPORT STATUS: Signed DATE:08/19/19 TIME: 1154 PATIENT: ANJELICA NAVARRO UNIT #: [id number] ROOM/BED: [address] : 90 AGE: 29 SEX: F [...] at 35- 36 weeks at 1155 RPT #:[id number] END OF REPORT [facility] 2019-08-18 18:02:00 [facility] OB Antepartum Prog Note REPORT#:[id number] REPORT STATUS: Signed DATE:08/18/19 TIME: 1801 PATIENT: ANJELICA NAVARRO UNIT #: [id number] ROOM/BED: [address] : 90 AGE: 29 SEX: F [...] 73 08/18 0959 Pulse Ox 100 08/18 09 Resp 16 08/18 959 Temp 98.2 08/17 [...] at 35- 36 weeks at 1802 RPT #:[id number] END OF REPORT [facility] 2019-08-17 21:38:00 [facility] OB Antepartum Prog Note REPORT#:[id number] REPORT STATUS: Signed DATE:08/17/19 TIME: 2137 PATIENT: ANJELICA NAVARRO UNIT #: [id number] ROOM/BED: [address] : 90 AGE: 29 SEX: F [...] Pulse Ox 100 08/17 1008 Temp 98.4 10 1008 Resp 17 08/17 1008 Vital Signs [...] at 35- 36 weeks at 2142 RPT #:[id number] END OF REPORT [facility] 2019-08-16 21:42:00 [facility] OB Antepartum Prog Note REPORT#:[id number] REPORT STATUS: Signed DATE:08/16/19 TIME: 2141 PATIENT: ANJELICA NAVARRO UNIT #: [id number] ROOM/BED: [address] : 90 AGE: 29 SEX: F [...] at 35- 36 weeks at 2150 RPT #:[id number] END OF REPORT [facility] 2019-08-15 18:36:00 [facility] OB Antepartum Prog Note REPORT#:[id number] REPORT STATUS: Signed DATE:08/15/19 TIME: 1835 PATIENT: ANJELICA NAVARRO UNIT #: [id number] ROOM/BED: [address] : 90 AGE: 29 SEX: F [...] at 35- 36 weeks at 1837 RPT #:[id number] END OF REPORT [facility] 2019-08-14 17:46:00 [facility] OB Antepartum Prog Note REPORT#:[id number] REPORT STATUS: Signed DATE:08/14/19 TIME: 1745 PATIENT: ANJELICA NAVARRO UNIT #: [id number] ROOM/BED: [address] : 90 AGE: 29 SEX: F [...] oterwise at 35 weeks at 1746 RPT #:[id number] END OF REPORT [facility] 2019-08-13 11:12:00 [facility] OB Antepartum Prog Note REPORT#:[id number] REPORT STATUS: Signed DATE:08/13/19 TIME: 1112 PATIENT: ANJELICA NAVARRO UNIT #: [id number] [address] AGE: 29 SEX: F [...] oterwise at 35 weeks at 1112 RPT #:[id number] END OF REPORT [facility] 2019 12:38:00 [facility] OB Antepartum Prog Note REPORT#:[id number] REPORT STATUS: Signed DATE:08/12/19 TIME: 1238 PATIENT: ANJELICA NAVARRO UNIT #: [id number] [address] AGE: 29 SEX: F [...] oterwise at 35 weeks at 1239 RPT #:[id number] END OF REPORT [facility] 2019-08-11 21:53:00 [facility] OB Antepartum Prog Note REPORT#:[id number] REPORT STATUS: Signed DATE:08/11/19 TIME: 2152 PATIENT: ANJELICA NAVARRO UNIT #: [id number] ROOM/BED: [address] : 90 AGE: 28 SEX: F [...] oterwise at 35 weeks at 2157 RPT #:[id number] END OF REPORT [facility] 2019-08-10 20:47:00 [facility] OB Antepartum Prog Note REPORT#:[id number] REPORT STATUS: Signed DATE:08/10/19 TIME: 2046 PATIENT: ANJELICA NAVARRO UNIT #: [id number] ROOM/BED: [address] : 90 AGE: 28 SEX: F [...] B/P 120/72 08/10 193 Pulse 86 08/10 1930 Temp 98.5 08/10 [...] FOR NON REASSURING TESTING at 2048 RPT #:[id number] END OF REPORT [facility] 2019-08-09 20:17:00 [facility] OB Antepartum Prog Note REPORT#:[id number] REPORT STATUS: Signed DATE:08/09/19 TIME: 2016 PATIENT: ANJELICA NAVARRO UNIT #: [id number] ROOM/BED: [address] : 90 AGE: 28 SEX: F [...] FOR NON REASSURING TESTING at 2017 RPT #:[id number] END OF REPORT [facility] 2019-08-08 13:06:00 [facility] OB Antepartum Prog Note REPORT#:[id number] REPORT STATUS: Signed DATE:08/08/19 TIME: 1306 PATIENT: ANJELICA NAVARRO UNIT #: [id number] ROOM/BED: [address] : 90 AGE: 28 SEX: F [...] FOR NON REASSURING TESTING at 1308 RPT #:[id number] END OF REPORT [facility] 2019-08-07 20:27:00 [facility] OB Antepartum Prog Note REPORT#:[id number] REPORT STATUS: Signed DATE:08/07/19 TIME: 2026 PATIENT: ANJELICA NAVARRO UNIT #: [id number] ROOM/BED: [address] : 90 AGE: 28 SEX: F [...] FOR NON REASSURING TESTING at 2028 RPT #:[id number] END OF REPORT [facility] 2019-08-06 13:37:00 [facility] OB Antepartum Prog Note REPORT#:[id number] REPORT STATUS: Signed DATE:08/06/19 TIME: 1337 PATIENT: ANJELICA NAVARRO UNIT #: [id number] ROOM/BED: [address] : 90 AGE: 28 SEX: F [...] FOR NON REASSURING TESTING at 1338 RPT #:[id number] END OF REPORT [facility] 2019-08-05 21:42:00 [facility] OB Antepartum Prog Note REPORT#:[id number] REPORT STATUS: Signed DATE:08/05/19 TIME: 2141 PATIENT: ANJELICA NAVARRO UNIT #: [id number] ROOM/BED: [address] : 90 AGE: 28 SEX: F [...] FOR NON REASSURING TESTING at 2143 RPT #:[id number] END OF REPORT [facility] 2019-08-04 19:35:00 [facility] Clinical Note REPORT#:[id number] REPORT STATUS: Signed DATE:08/04/19 TIME: 1934 PATIENT: ANJELICA NAVARRO UNIT #: [id number] ROOM/BED: [address] : 90 AGE: 28 SEX: F [...] check UA and cx at 1942 RPT #:[id number] END OF REPORT [facility] 2019-08-04 17:09:00 [facility] OB Antepartum Prog Note REPORT#:[id number] REPORT STATUS: Signed DATE:08/04/19 TIME: 1708 PATIENT: ANJELICA NAVARRO UNIT #: [id number] ROOM/BED: [address] : 90 AGE: 28 SEX: F [...] FOR NON REASSURING TESTING at 1713 RPT #:[id number] END OF REPORT [facility] 2019-08-03 20:46:00 [facility] OB Admission / H P REPORT#:[id number] REPORT STATUS: Signed DATE:08/03/19 TIME: 2045 PATIENT: ANJELICA NAVARRO UNIT #: [id number] ROOM/BED: 3212-A : 90 AGE: 28 SEX: F ATTEND: [...] 34 weeks, inpatient management at 2114 RPT #:[id number] END OF REPORT [facility] 2019-08-03 17:03:00 [facility] DT Consult Note REPORT#:[id number] REPORT STATUS: Signed DATE:08/03/19 TIME: 1703 PATIENT: ANJELICA NAVARRO UNIT #: [id number] ROOM/BED: [address] : 90 AGE: 28 SEX: F [...] Signature: Ko Velasco DO at 1704 RPT #:[id number] END OF REPORT [facility]
--- NOTE | 2024-09-19 12:52 | RAD REPORT ---
EXAMINATION: ONE VIEW CHEST XR CLINICAL INDICATION: CHEST PAIN TECHNIQUE: Frontal chest projection is submitted. Examination is limited by patient positioning and t echnique. COMPARISON: Recent prior radiograph reviewed. FINDINGS: The lungs are well inflated and clear. The heart is normal in size. No displaced fractures identified . IMPRESSION: No acute intrathoracic abnormalities.
[2024-09-19] MEDS ORDERED: ASPIRIN 81 MG CHEWABLE TABLET ONE (13:14)
[2024-09-19 13:24] LABS: Absolute Basophils 0.1 K/uL (0-0.5); Absolute Eosinophils 0.1 K/uL (0-0.5); Absolute Lymphocytes (CBC) 1.8 K/uL (0.7-4.9); Absolute Monocytes 0.4 K/uL (0.1-1.3); Absolute Neutrophil 3.9 K/uL (1.8-8.0); Hematocrit 40.4 % (36.0-45.0); Hemoglobin 13.4 g/dL (12.0-15.0); Lymphocytes % 29.2 % (15.3-44.8); MCH 32.3 pg (27.0-35.0); MCHC 33.2 g/dL (32.0-36.0); MCV 97.3 fL (80-100); MPV 8.6 fL (7.6-11.3); Monocytes % 6.3 % (3.3-12.3); Neutrophils % 61.5 % (41.7-73.7); Nucleated Red Blood Cells % 0.2 % (0-0); Platelets 253 thou/uL (152-406); RBC Red Blood Cell Count 4.15 M/uL (3.86-4.86); Red Cell Distribution Width 13.2 % (12.1-15.2)
[2024-09-19 13:36] LABS: Anion Gap 7.4 mEq/L (5.0-15.0); BUN Blood Urea Nitrogen 8 mg/dL (7-18); Bicarbonate 29 mEq/L (21-32); Glomerular Filtration Rate 72 ml/min (=/>90); Glucose Level 99 mg/dL (74-106); Potassium 3.4 mEq/L (3.5-5.1); Sodium Level 138 mEq/L (136-145)
[2024-09-19 13:37] LABS: Troponin High Sensitivity < 3.0 pg/mL (<58.9)
--- NOTE | 2024-09-19 14:04 | ER ---
Nurse's Notes [facility] Name: Jade Murillo Age: 34 yrs Sex: Female : 1990 Arrival Date: 09/19/2024 Time: 12:05 Bed 8 Private MD: Diagnosis: Chest pain, unspecified Presentation: 09/19 12:18 Chief complaint: Patient states: CP for 2 days. Coronavirus screen: Client denies ll1 travel out of the [place] in the last 14 days. At this time, the client does not indicate any symptoms associated with coronavirus-19. Ebola Screen: Patient denies travel to an Ebola-affected area in the 21 days before illness onset. Initial Sepsis Screen: Does the patient meet any 2 criteria? No. Patient's initial sepsis screen is negative. Does the patient have a suspected source of infection? No. Patient's initial sepsis screen is negative. Risk Assessment: Do you want to hurt yourself or someone else? Patient reports no desire to harm self or others. Onset of symptoms was September 18, 2024. 12:18 Method Of Arrival: Ambulatory ll1 12:18 Acuity: KEVYN 3 ll1 Triage Assessment: 12:19 General: Appears uncomfortable, Behavior is calm, cooperative, appropriate for age. ll1 Pain: Denies pain. Cardiovascular: Reports chest pain. Historical: - Allergies: 12:19 No Known Allergies; ll1 - PMHx: 12:19 None; ll1 - PSHx: 12:19 section; Cholecystectomy; D\T\C; ll1 - Immunization history:: Adult Immunizations up to date. - Infectious Disease History:: Denies. - Social history:: Smoking status: Patient denies any tobacco usage or history of. Screenin:18 [facility] ED Fall Risk Assessment (Adult) History of falling in the last 3 months, bp including since admission No falls in past 3 months (0 pts) Confusion or Disorientation No (0 pts) Intoxicated or Sedated No (0 pts) Impaired Gait No (0 pts) Mobility Assist Device Used No (0 pt) Altered Elimination No (0 pt) Score/Fall Risk Level 0 - 2 = Low Risk Oriented to surroundings. Abuse screen: Denies threats or abuse. Denies injuries from another. Nutritional screening: No deficits noted. Tuberculosis screening: No symptoms or risk factors identified. Assessment: 12:30 General: Appears in no apparent distress. Behavior is calm, cooperative, appropriate bp for age. 14:18 Reassessment: Patient appears in no apparent distress at this time. Patient states bp symptoms have improved. Pain: Complains of pain in chest Pain does not radiate. Pain began gradually. Vital Signs: 12:18 BP 148 / 95; Pulse 87; Resp 17; Temp 97.1; Pulse Ox 100% ; Weight 71.67 kg; Height 5 ll1 ft. 4 in. ; Pain 0/10; 14:18 BP 137 / 89; Pulse 79; Resp 16; Pulse Ox 100% ; bp 12:18 Body Mass Index 27.12 (71.67 kg, 162.56 cm) ll1 12:18 Pain Scale: Adult ll1 ED Course: 12:08 Patient arrived in ED. mr 12:10 Travis Doll DO is Attending Physician. ms3 12:19 Triage completed. ll1 12:19 Arm band placed on. ll1 12:45 XRAY Chest (1 view) In Process Unspecified. EDMS 13:13 Inserted saline lock: 20 gauge in right antecubital area, using aseptic technique. ss ,using aseptic technique. Insertion by nursing unit manager with myself chaperoning Blood collected. Flushed with 10 mL NS. 13:20 Vincent Cooper, YONG is Primary Nurse. bp 14:04 Rafa Valerio MD is Referral Physician. ms3 14:18 Patient has correct armband on for positive identification. Provided Education on: N/A. bp Client placed on continuous cardiac and pulse oximetry monitoring. NIBP monitoring applied. physiotherapist's assistant on. Pulse ox on. NIBP on. 14:18 No provider procedures requiring assistance completed. IV discontinued, intact, bp bleeding controlled, No redness/swelling at site. Pressure dressing applied. Patient maintains SpO2 saturation greater than 95% on room air. Administered Medications: 13:21 Drug: Aspirin PO Chewable Tablet 324 mg PO once; 81 mg tablets x 4 Route: PO; bp 13:31 Follow up: Response: No adverse reaction bp Medication: 14:18 VIS not applicable for this client. bp Outcome: 14:04 Discharge ordered by . ms3 14:18 Discharged to home ambulatory, bp 14:18 Condition: stable 14:18 Discharge instructions given to patient, Instructed on discharge instructions, follow up and referral plans. Demonstrated understanding of instructions, follow-up care, 14:39 Patient left the ED. bp Signatures: Dispatcher [employer] EDMS AhnNaomie fuchs, Reg Reg mr Liza Granados, RN RN ss Vincent Cooper RN RN bp Lewis, Lynsay, RN RN ll1 Travis Doll DO DO ms3 Corrections: (The following items were deleted from the chart) 12:20 12:18 BP 148 / 95; Pulse 87bpm; Resp 17bpm; Pulse Ox 100%; Temp 97.1F; Pain 0/10, ll1 Adult; ll1
--- NOTE | 2024-09-19 14:04 | EDPHYS ---
Physician Documentation [facility] Name: Jade Murillo Age: 34 yrs Sex: Female : 1990 Arrival Date: 09/19/2024 Time: 12:05 Bed 8 Private MD: ED Physician Travis Doll HPI: 09/19 14:48 This 34 yrs old Black Female presents to ER via Ambulatory with complaints of Chest ms3 Pain. 14:48 34-year-old female with no past medical history presents to the emergency department ms3 for chest pain that began yesterday. The pain is described as radiating along the sternum and underneath the right breast. It has been constant since onset and can reach an intensity of 10 out of 10 at its worst. However, at present, the patient is not feeling any pain. The pain appears to worsen with movement. . Historical: - Allergies: 12:19 No Known Allergies; ll1 - PMHx: 12:19 None; ll1 - PSHx: 12:19 section; Cholecystectomy; D\T\C; ll1 - Immunization history:: Adult Immunizations up to date. - Infectious Disease History:: Denies. - Social history:: Smoking status: Patient denies any tobacco usage or history of. ROS: 14:48 Constitutional: Negative for fever, and chills. Respiratory: Negative for shortness of ms3 breath, cough, wheezing, and pleuritic chest pain, Abdomen/GI: Negative for abdominal pain, nausea, vomiting, diarrhea, and constipation, 14:48 MS/Extremity: Negative for injury and deformity, Skin: Negative for injury, rash, and discoloration, 14:48 Cardiovascular: Positive for chest pain, Exam: 14:03 ECG was reviewed by the Attending Physician. ms3 14:48 Constitutional: This is a well developed, well nourished patient who is awake, alert, ms3 and in no acute distress. Head/Face: Normocephalic, atraumatic. Chest/axilla: Normal chest wall appearance and motion. Nontender with no deformity. Cardiovascular: Regular rate and rhythm with a normal S1 and S2. No gallops, murmurs, or rubs. Normal PMI, no JVD. No pulse deficits. Respiratory: Lungs have equal breath sounds bilaterally, clear to auscultation and percussion. No rales, rhonchi or wheezes noted. No increased work of breathing, no retractions or nasal flaring. Abdomen/GI: Soft, non-tender, with normal bowel sounds. No distension or tympany. No guarding or rebound. No evidence of tenderness throughout. Skin: Warm, dry with normal turgor. Normal color with no rashes, no lesions, and no evidence of cellulitis. Vital Signs: 12:18 BP 148 / 95; Pulse 87; Resp 17; Temp 97.1; Pulse Ox 100% ; Weight 71.67 kg; Height 5 ll1 ft. 4 in. ; Pain 0/10; 14:18 BP 137 / 89; Pulse 79; Resp 16; Pulse Ox 100% ; bp 12:18 Body Mass Index 27.12 (71.67 kg, 162.56 cm) ll1 12:18 Pain Scale: Adult ll1 MDM: 12:35 Medical Screening Exam initiated ms3 14:04 HEART Score: History: Slightly Suspicious (0), ECG: Normal (0), Age: < or = 45 years ms3 (0), Risk Factors: No Risk Factors Known (0), Troponin: < or = 1 x Normal Limit (0), Total Score = 0. 14:48 Differential diagnosis: abnormal EKG, acute myocardial infarction, pulmonary embolus. ms3 Data reviewed: vital signs, nurses notes, lab test result(s), EKG, radiologic studies, and as a result, I will discharge patient. Independent interpretation of the following test(s) in the Emergency Department EKG: See my EKG interpretation above. Scoring Tools PERC Rule for PE Age > /= 50 No (0) HR > /= 100 No (0) O2 Sat Room Air < 95% No (0) Unilateral leg swelling No (0) Hemoptysis No (0) Recent surgery or trauma </= 4 weeks ago, requiring treatment with General Anesthesia No (0) Prior PE or DVT No (0) Hormone use No (0). Counseling: I had a detailed discussion with the patient and/or guardian regarding the historical points, exam findings, and any diagnostic results supporting the discharge/admit diagnosis, lab results, radiology results, the need for outpatient follow up, to return to the emergency department if symptoms worsen or persist or if there are any questions or concerns that arise at home. Special discussion: Based on the patient's history, exam, and Dx evaluation, there is no indication for emergent intervention or inpatient Tx. It is understood by the patient/guardian that if the Sx's persist or worsen they need to return immediately for re-evaluation. ED course: Discussed EKG, labs, chest x-ray findings with patient. On reevaluation patient symptoms improved, patient is alert and orient x 4, in no apparent distress, nontoxic-appearing. Patient is agreeable to discharge at this time. Patient to follow-up with Dr. Valerio in 2 to 3 days. Return precautions discussed include worsening symptoms, or any other concerns. 09/19 12:15 Order name: Basic Metabolic Panel; Complete Time: 13:50 ms3 09/19 12:15 Order name: CBC with Diff; Complete Time: 13:50 ms3 09/19 12:15 Order name: Troponin HS; Complete Time: 13:50 ms3 09/19 12:15 Order name: XRAY Chest (1 view); Complete Time: 13:50 ms3 09/19 12:15 Order name: EKG; Complete Time: 12:15 ms3 09/19 12:15 Order name: Cardiac monitoring; Complete Time: 13:21 ms3 09/19 12:15 Order name: EKG - Nurse/Tech; Complete Time: 12:19 ms3 09/19 12:15 Order name: IV Saline Lock; Complete Time: 13:21 ms3 09/19 12:15 Order name: Labs collected and sent; Complete Time: 13:21 ms3 09/19 12:15 Order name: O2 Per Protocol; Complete Time: 13:21 ms3 09/19 12:15 Order name: O2 Sat Monitoring; Complete Time: 13:21 ms3 EC:03 Rate is 79 beats/min. Rhythm is regular. QRS [place] is Normal. ND interval is normal. QRS ms3 interval is normal. Clinical impression: Normal ECG. Interpreted by me. Reviewed by me. Administered Medications: 13:21 Drug: Aspirin PO Chewable Tablet 324 mg PO once; 81 mg tablets x 4 Route: PO; bp 13:31 Follow up: Response: No adverse reaction bp Disposition Summary: 09/19/24 14:04 Discharge Ordered Notes: Location: Home ms3 Condition: Stable ms3 Diagnosis - Chest pain, unspecified ms3 Followup: ms3 - With: Rafa Valerio MD - When: 2 - 3 days - Reason: Recheck today's complaints Discharge Instructions: - Discharge Summary Sheet ms3 - Nonspecific Chest Pain, Adult ms3 Forms: - Work release form bp - Medication Reconciliation Form ms3 - Antibiotic Education ms3 - Prescription Opioid Use ms3 - Patient Portal Instructions ms3 - Leadership Thank You Letter ms3 Signatures: Dispatcher [employer] Vincent Moss RN RN bp Lewis, Lynsay, RN RN [facility] Travis Doll DO DO ms3
[2024-09-19 14:46] VITALS: TEMP 97.1; O2SAT 100
[2024-09-19 14:47] VITALS: BP 137/89
== END 2024-09-19 14:39 | disposition home or self-care (01) ==
LOC: ER 12:05
DX: R07.9 Chest pain, unspecified (principal)
CPT/HCPCS: 36415; 71045; 80048; 84484; 85025; 93005; 99284

== ENCOUNTER 2025-01-13 12:12 | Emergency (ER) | payer OTHER ==
--- OUTSIDE RECORDS SUMMARY | 2025-01-13 12:18 | XMS REPORT | Continuity of Care Document ---
Author Name Unknown Address [address] [place] [address] [facility] [place] Address 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 Role Phone SARAH SANDRA Primary Care Physician STEPHAN Mendez Attending Clinician UnavailPARKER Whiteside Attending Clinician Unavailab ELOINA Swan Attending Clinician UnavailDEEPA Kelley Attending Clinician Unavailable SHAHIDA GAUTHIER Attending Clinician Unaailyn garibay LAB90 Attending Clinician Unavailable SHERICE ANDERSEN Attending Clinician Unavailable MD KAYA Attending Clinician Unavailab giovana Stanton Attending Clinician Unavailable SANDRA SMITH Attending Clinician Unavailab SANDRA Amaral Attending Clinician Unavailab PATRICIA Lopes Attending [...] Number Effective Date Expirati on Date Source [facility] LIANE OLIVEIRA FOCUS 9 [id number] 2024 00:00:[address] 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 Gonorrhea Gonorrhea Problem Active 2019-11 0-13 00:00: 00 [facility] Uses transderma l contracept ion Uses Transderma l Contracept ion Problem Active 08-05 00:00: 00 [facility] Gynecologi c examinatio n Gynecologi c Examinatio n Problem Active - 00:00: 00 [facility] Venereal disease screening Venereal Disease Screening Problem Active 08-05 00:00: 00 [facility] Irregular intermenst rual bleeding Irregular Intermenst rual Bleeding Problem Active -16 00:00: 00 [facility] Initiation of transderma l contracept ion done Initiation of Transderma l Contracept ion Done Problem Active 6-16 00:00: 00 [facility] care Care Problem Active 2018-11 1-12 00:00: 00 [facility] Initiation of depot contracept ion done Initiation of Depot Contracept ion Done Problem Active 2018-11 00:00: 00 [facility] Contracept ion education Contracept ion Education Problem Active 2018-11 00:00: 00 [facility] Small for gestationa l age fetus Small for Gestationa l Age Fetus Problem Active 8 00:00: 00 [facility] Unintentio nal weight loss Unintentio nal Weight Loss Problem Active 5 00:00: 00 [facility] Severe hyperemesi s gravidarum Severe Hyperemesi s Gravidarum Problem Active 4 00:00: 00 [facility] No known active problems No known active problems Disease [facility] Allergies, Adverse Reactions, Alerts Allergy Name Allergy Type Status Severity Reaction(s) Onset Date Inactive Date Treating Clinician Comments Source No Known Allergie s DA Active U 9 00:00: 00 [facility] NO KNOWN ALLERGIE S Drug Class Active [facility] Social History Social Habit Start Date Stop Date Quantity Comments Source ASSERTION Not Tete Rico - External Sexual orientation Patrice alfaro Jacky - External Alcoholic beverage intake 2024-11-21 00:00:00 2024-11-21 00:00:00 Lifetime non-drinker (finding) Tete Rico - [...] (event) 2022-11-10 00:00:00 2022-11-20 13:38:00 Not sure [facility] Sex assigned at 1990 00:00:1990 00:00:00 Tete Mcguire Smoking Status Start Date Stop Date Source Tobacco smoking consumption unknown Tete Hemeganelvira Tiffanie Mcguire Never smoked tobacco Tete Heандрей Mcguire Medications Ordered Medication Name Filled Medication Name Start Date Stop Date Current Medication? Ordering Clinician Indication Dosage Frequency Signature (SIG) Comments Components Source Valacyclovi r HCl 1 g oral Tablet 07-25 00:00: 00 11-21 00:00 :00 No [id number] 1000mg Q.5D Take 1 tablet (1,000 mg [...] MG oral Tablet 05-10 00:00: 00 Yes [id number] 100mg QD Take 1 tablet (100 mg total) by mouth daily. Tete vieyra Trazodone HCl 50 MG oral Tablet 05-10 00:00: 00 11-21 00:00 :00 No [id number] 50mg QD Take 1 tablet (50 mg total) by mouth nightly. Tete vieyra Cyanocobala min (B-12) 1000 MCG oral Tablet 05-10 00:00: 00 07-25 00:00 :00 No [id number] 1{tbl} QD Take 1 tablet by mouth daily. Tete vieyra Ibuprofen (MOTRIN) 800 MG oral Tablet 4-27 00:00: 00 11-21 00:00 :00 No TAKE ONE (1) TABLET(S) [...] 02-27 00:00: 00 05-10 00:00 :00 No [id number] 50mg Take 1 tablet (50 mg total) [...] 02-23 00:00: 00 05-10 00:00 :00 No [id number] 50mg QD Take 1 tablet (50 mg total) by mouth daily. Tete vieyra Trazodone HCl 50 MG oral Tablet 02-23 00:00: 00 05-10 00:00 :00 No [id number] 50mg QD Take 1 tablet (50 mg total) by mouth nightly. Tete vieyra Twirla 120-30 MCG/24HR transdermal PATCH WEEKLY 01-31 00:00: 00 05-10 00:00 :00 No APPLY ONE (1) PATCH TO THE SKIN EVERY WEEK. Tete vieyra ACETAMINOPH EN-CAFF-BUT ALBITAL 50-325-40 MG oral Tablet 01-24 00:00: 00 Yes [id number] 1{tbl} Q4H Take 1 tablet by mouth every 4 hours as needed for pain. Tete vieyra Sertraline HCl 25 MG oral Tablet 01-24 00:00: 00 Yes [id number] 25mg Take 1 tablet (25 mg total) by mouth daily. Tete vieyra Diclofenac Sodium 75 MG oral Tablet Delayed Response 3-19 00:00: 00 05-10 00:00 :00 No [id number] 75mg Q.5D Take 1 tablet (75 mg total) by mouth 2 times daily. Tete vieyra Zafemy 150-35 MCG/24HR transdermal PATCH WEEKLY 2- 00:00: 00 05-10 00:00 :00 No 1{patch } Q1W Place 1 patch onto the skin once a week. Tete vieyra Famotidine (Pepcid) 20 MG oral tablet 12-07 00:00: 00 Yes [id number] 20mg Take 1 tablet (20 mg total) by mouth 2 times daily. Tete vieyra Benzonatate (Tessalon Perles) 100 MG oral Capsule 12-07 00:00: 00 Yes [id number] 100mg Q.[id number] 3D Take 1 capsule (100 mg total) by mouth 3 times daily as needed for cough. Tete vieyra methylPREDN ISolone 4 MG oral Tablet Therapy Pack 11-30 00:00: 00 12-07 00:00 :00 No [id number] 1{piter} Take 1 piter by mouth See Admin Instructio ns Use as directed. Tete viyera Azithromyci n 250 MG oral Tablet 11-30 00:00: 00 12-07 00:00 :00 No [id number] Take 2 tablets by mouth on day 1 then 1 tablet by mouth daily for 4 days thereafter .. Tete vieyra EPINEPHrine 0.15 mg/0.3 mL injection 11-12 00:00: 00 Yes INJECT 0.3 ML(S) INTRAMUSCU LARLY NEEDED FOR ANAPHYLAXI S. [facility] medroxyprog esterone 10 mg tablet TAKE ONE (1) TABLET(S) BY MOUTH ONCE A DAY. medroxyprog esterone 10 mg tablet TAKE ONE (1) TABLET(S) BY MOUTH ONCE A DAY. No medroxypro gesterone 10 mg tablet TAKE ONE (1) TABLET(S) BY MOUTH ONCE A DAY. [facility] medroxyprog esterone 150 mg/mL intramuscul ar suspension Inject 1 mL every 3 months by intramuscul ar route. medroxyprog esterone 150 mg/mL intramuscul ar suspension Inject 1 mL every 3 months by intramuscul ar route. No 1mL medroxypro gesterone 150 mg/mL intramuscu lar suspension Inject 1 mL every 3 months by intramuscu lar route. [facility] cholecalcif jeremiah (vitamin D3) 1,250 mcg (50,000 unit) capsule TAKE ONE (1) CAPSULE(S) BY MOUTH ONCE WEEKLY. cholecalcif jeremiah (vitamin D3) 1,250 mcg (50,000 unit) capsule TAKE ONE (1) CAPSULE(S) BY MOUTH ONCE WEEKLY. No cholecalci ferol (vitamin D3) 1,250 mcg (50,000 unit) capsule TAKE ONE (1) CAPSULE(S) BY MOUTH ONCE WEEKLY. [facility] medroxyprog esterone 150 mg/mL intramuscul ar suspension Inject 1 mL every 3 months by intramuscul ar route. medroxyprog esterone 150 mg/mL intramuscul ar suspension Inject 1 mL every 3 months by intramuscul ar route. No 1mL medroxypro gesterone 150 mg/mL intramuscu lar suspension Inject 1 mL every 3 months by intramuscu lar route. [facility] medroxyprog esterone 150 mg/mL intramuscul ar syringe INJECT ONE (1) ML(S) INTO THE MUSCLE EVERY 3 MONTHS. medroxyprog esterone 150 mg/mL intramuscul ar syringe INJECT ONE (1) ML(S) INTO THE MUSCLE EVERY 3 MONTHS. No medroxypro gesterone 150 mg/mL intramuscu lar syringe INJECT ONE (1) ML(S) INTO THE MUSCLE EVERY 3 MONTHS. [facility] Provera 10 mg tablet Take 1 tablet every day by oral route for 14 days. Provera 10 mg tablet Take 1 tablet every day by oral route for 14 days. No 1 Q1D Provera 10 mg tablet Take 1 tablet every day by oral route for 14 days. [facility] cholecalcif jeremiah (vitamin D3) 1,250 mcg (50,000 unit) capsule TAKE ONE (1) CAPSULE(S) BY MOUTH ONCE WEEKLY. cholecalcif jeremiah (vitamin D3) 1,250 mcg (50,000 unit) capsule TAKE ONE (1) CAPSULE(S) BY MOUTH ONCE WEEKLY. No cholecalci ferol (vitamin D3) 1,250 mcg (50,000 unit) capsule TAKE ONE (1) CAPSULE(S) BY MOUTH ONCE WEEKLY. [facility] medroxyprog esterone 10 mg tablet TAKE ONE (1) TABLET(S) BY MOUTH ONCE A DAY FOR 14 DAYS. medroxyprog esterone 10 mg tablet TAKE ONE (1) TABLET(S) BY MOUTH ONCE A DAY FOR 14 DAYS. No medroxypro gesterone 10 mg tablet TAKE ONE (1) TABLET(S) BY MOUTH ONCE A DAY FOR 14 DAYS. [facility] medroxyprog esterone 150 mg/mL intramuscul ar suspension Inject 1 mL every 3 months by intramuscul ar route. medroxyprog esterone 150 mg/mL intramuscul ar suspension Inject 1 mL every 3 months by intramuscul ar route. No 1mL medroxypro gesterone 150 mg/mL intramuscu lar suspension Inject 1 mL every 3 months by intramuscu lar route. [facility] medroxyprog esterone 150 mg/mL intramuscul ar syringe INJECT ONE (1) ML(S) INTO THE MUSCLE EVERY 3 MONTHS. medroxyprog esterone 150 mg/mL intramuscul ar syringe INJECT ONE (1) ML(S) INTO THE MUSCLE EVERY 3 MONTHS. No medroxypro gesterone 150 mg/mL intramuscu lar syringe INJECT ONE (1) ML(S) INTO THE MUSCLE EVERY 3 MONTHS. [facility] methylpredn isolone 4 mg tablets in a dose pack TAKE BY MOUTH DIRECTED. methylpredn isolone 4 mg tablets in a dose pack TAKE BY MOUTH DIRECTED. No methylpred nisolone 4 mg tablets in a dose pack TAKE BY MOUTH DIRECTED. [facility] Xulane 150 mcg-35 mcg/24 hr transdermal patch Apply 1 patch every week by transdermal route. Xulane 150 mcg-35 mcg/24 hr transdermal patch Apply 1 patch every week by transdermal route. No 1patch( es) Q1W Xulane 150 mcg-35 mcg/24 hr transderma l patch Apply 1 patch every week by [facility]ma [facility] Vital Signs Vital Name Observation Time Observation Value Comments S ource Systolic blood pressure 2024-11-21 15:11:00 155 mm[Hg] Tete Seybo ld - External Diastolic blood pressure 2024-11-21 15:11:00 95 mm[Hg] Tete Seybo ld - External Heart rate 2024-11-21 15:10:00 77 /min Kelse y Seybold - External Respiratory rate 2024-11-21 15:10:00 18 /min Tete Seybold - External Body height 2024-11-21 15:10:00 162.6 cm Massiel ey Seybold - External Body weight 2024-11-21 15:10:00 71.115 kg Massiel ey Seybold - External BMI 2024-11-21 15:10:00 26.91 kg/m2 Massiel ey Seybold - External Systolic blood pressure 2024-07-25 15:17:00 132 mm[Hg] Tete Seybo ld - External Diastolic blood pressure 2024-07-25 15:17:00 78 mm[Hg] Tete Seybo ld - External Heart rate 2024-07-25 15:17:00 [...] Pulse oximetry 2024-07-25 15:17:00 98 /min Tete Seybo ld - External Systolic blood pressure 2024-05-24 20:03:00 128 mm[Hg] Tete Seybo ld - External Diastolic blood pressure 2024-05-24 20:03:00 78 mm[Hg] Tete Seybo ld - External Heart rate 2024-05-24 20:03:00 [...] Pulse oximetry 2024-05-10 19:58:00 99 /min Tete Heybo ld - External Systolic blood pressure 2024-05-10 [...] External Heart rate 2024-02-24 14:20:00 82 /min Visahlse y Seybold - External Body temperature 2024-02-24 [...] (Body Mass Index) 2023-12-17 00:00:00 26.9 kg/m2 [facility] BP Diastolic 2023-12-17 00:00:00 77 [...] Respiratory rate 2023-12-07 20:19:00 14 /min Tete Rico - External Body height 2023-12-07 20:19:00 162.6 cm Massiel Rico - External Body weight 2023-12-07 20:19:00 70.761 kg Massiel Rico - External BMI 2023-12-07 20:19:00 26.78 kg/m2 Massiel Rico - External Body Weight 2023-10-21 00:00:00 156.3 [lb_av] [facility] Height 2023-10-21 00:00:00 64 [in_i] [facility] BP Systolic 2023-10-21 00:00:00 132 mm[Hg] [facility] BP Diastolic 2023-10-21 00:00:00 89 mm[Hg] [facility] BMI (Body Mass Index) 2023-10-21 00:00:00 26.8 kg/m2 [facility] Body Weight 2023-06-29 00:00:00 151 [lb_av] [facility] BP Systolic 2023-06-29 00:00:00 133 mm[Hg] [facility] Height 2023-06-29 00:00:00 64 [in_i] [facility] BMI (Body Mass Index) 2023-06-29 00:00:00 25.9 kg/m2 [facility] BP Diastolic 2023-06-29 00:00:00 88 mm[Hg] [facility] Systolic blood pressure 2022-11-20 19:55:00 128 mm[Hg] [facility] Diastolic blood pressure 2022-11-20 19:55:00 76 mm[Hg] [facility] Heart rate 2022-11-20 19:55:00 82 /min [facility] Body temperature 2022-11-20 19:55:00 36.67 [facility] Respiratory rate 2022-11-20 19:55:00 18 /min [facility] Body height 2022-11-20 19:55:00 162.6 cm [facility] Body weight 2022-11-20 19:55:00 72.576 kg [facility] BMI 2022-11-20 19:55:00 27.46 kg/m2 [facility] Oxygen saturation in Arterial blood by Pulse oximetry 2022-11-20 19:55:00 100 /min [facility] BP Diastolic 2022-06-22 00:00:00 82 mm[Hg] [facility] Height 2022-06-22 00:00:00 64 [in_i] [facility] BMI (Body Mass Index) 2022-06-22 00:00:00 26 kg/m2 [facility] BP Systolic 2022-06-22 00:00:00 131 mm[Hg] [facility] Body Weight 2022-06-22 00:00:00 151.4 [lb_av] [facility] BP Diastolic 2022-05-08 00:00:00 92 mm[Hg] [facility] Height 2022-05-08 00:00:00 64 [in_i] [facility] BMI (Body Mass Index) 2022-05-08 00:00:00 25.9 kg/m2 [facility] BP Systolic 2022-05-08 00:00:00 142 mm[Hg] [facility] Body Weight 2022-05-08 00:00:00 151 [lb_av] [facility] Height 2022-03-18 00:00:00 64 [in_i] [facility] BP Diastolic 2021-12-18 00:00:00 88 mm[Hg] [facility] Height 2021-12-18 00:00:00 64 [in_i] [facility] BMI (Body Mass Index) 2021-12-18 00:00:00 25.5 kg/m2 [facility] BP Systolic 2021-12-18 00:00:00 138 mm[Hg] [facility] Body Weight 2021-12-18 00:00:00 148.4 [lb_av] [facility] Height 2021-09-17 00:00:00 64 [in_i] [facility] BMI (Body Mass Index) 2021-09-17 00:00:00 23.2 kg/m2 [facility] Body Weight 2021-09-17 00:00:00 135 [lb_av] [facility] BP Diastolic 2021-09-02 00:00:00 75 mm[Hg] [facility] Height 2021-09-02 00:00:00 64 [in_i] [facility] BMI (Body Mass Index) 2021-09-02 00:00:00 23 kg/m2 [facility] BP Systolic 2021-09-02 00:00:00 119 mm[Hg] [facility] Body Weight 2021-09-02 00:00:00 134.2 [lb_av] [facility] BP Diastolic 2021-08-19 00:00:00 87 mm[Hg] [facility] Height 2021-08-19 00:00:00 64 [in_i] [facility] BMI (Body Mass Index) 2021-08-19 00:00:00 22.6 kg/m2 [facility] BP Systolic 2021-08-19 00:00:00 124 mm[Hg] [facility] Body Weight 2021-08-19 00:00:00 131.9 [lb_av] [facility] BP Diastolic 2021-04-11 00:00:00 81 mm[Hg] [facility] Height 2021-04-11 00:00:00 64 [in_i] [facility] BMI (Body Mass Index) 2021-04-11 00:00:00 21.1 kg/m2 [facility] BP Systolic 2021-04-11 00:00:00 144 mm[Hg] [facility] Body Weight 2021-04-11 00:00:00 122.9 [lb_av] [facility] Height 2021-03-24 00:00:00 64 [in_i] [facility] BMI (Body Mass Index) 2021-03-24 00:00:00 20.9 kg/m2 [facility] BP Systolic 2021-03-24 00:00:00 127 mm[Hg] [facility] Body Weight 2021-03-24 00:00:00 122 [lb_av] [facility] BP Diastolic 2021-03-24 00:00:00 83 mm[Hg] [facility] BP Diastolic 2020-09-24 00:00:00 83 mm[Hg] [facility] Height 2020-09-24 00:00:00 64 [in_i] [facility] BMI (Body Mass Index) 2020-09-24 00:00:00 22.7 kg/m2 [facility] BP Systolic 2020-09-24 00:00:00 120 mm[Hg] [facility] Body Weight 2020-09-24 00:00:00 132.4 [lb_av] [facility] BP Diastolic 2020-08-20 00:00:00 70 mm[Hg] [facility] Height 2020-08-20 00:00:00 64 [in_i] [facility] BMI (Body Mass Index) 2020-08-20 00:00:00 22.6 kg/m2 [facility] BP Systolic 2020-08-20 00:00:00 131 mm[Hg] [facility] Body Weight 2020-08-20 00:00:00 131.5 [lb_av] [facility] BP Diastolic 2020-08-05 00:00:00 80 mm[Hg] [facility] Height 2020-08-05 00:00:00 64 [in_i] [facility] BMI (Body Mass Index) 2020-08-05 00:00:00 22.3 kg/m2 [facility] BP Systolic 2020-08-05 00:00:00 130 mm[Hg] [facility] Body Weight 2020-08-05 00:00:00 130 [lb_av] [facility] BP Diastolic 2020-04-23 00:00:00 82 mm[Hg] [facility] Height 2020-04-23 00:00:00 64 [in_i] [facility] BMI (Body Mass Index) 2020-04-23 00:00:00 23 kg/m2 [facility] BP Systolic 2020-04-23 00:00:00 128 mm[Hg] [facility] Body Weight 2020-04-23 00:00:00 134 [lb_av] [facility] BP Diastolic 2020-01-02 00:00:00 73 mm[Hg] [facility] Height 2020-01-02 00:00:00 64 [in_i] [facility] BMI (Body Mass Index) 2020-01-02 00:00:00 21.8 kg/m2 [facility] BP Systolic 2020-01-02 00:00:00 114 mm[Hg] [facility] Body Weight 2020-01-02 00:00:00 127.1 [lb_av] [facility] BP Diastolic 2019-09-19 00:00:00 78 mm[Hg] [facility] Height 2019-09-19 00:00:00 64 [in_i] [facility] BMI (Body Mass Index) 2019-09-19 00:00:00 21.8 kg/m2 [facility] BP Systolic 2019-09-19 00:00:00 122 mm[Hg] [facility] Body Weight 2019-09-19 00:00:00 127.2 [lb_av] [facility] BP Diastolic 2019-08-02 00:00:00 77 mm[Hg] [facility] Height 2019-08-02 00:00:00 64 [in_i] [facility] BMI (Body Mass Index) 2019-08-02 00:00:00 22 kg/m2 [facility] BP Systolic 2019-08-02 00:00:00 116 mm[Hg] [facility] Body Weight 2019-08-02 00:00:00 128 [lb_av] [facility] BP Diastolic 2019-07-19 00:00:00 76 mm[Hg] [facility] Height 2019-07-19 00:00:00 64 [in_i] [facility] BMI (Body Mass Index) 2019-07-19 00:00:00 21.8 kg/m2 [facility] BP Systolic 2019-07-19 00:00:00 117 mm[Hg] [facility] Body Weight 2019-07-19 00:00:00 127 [lb_av] [facility] BP Diastolic 2019-07-05 00:00:00 63 mm[Hg] [facility] Height 2019-07-05 00:00:00 64 [in_i] [facility] BMI (Body Mass Index) 2019-07-05 00:00:00 21.9 kg/m2 [facility] BP Systolic 2019-07-05 00:00:00 103 mm[Hg] [facility] Body Weight 2019-07-05 00:00:00 127.5 [lb_av] [facility] BP Diastolic 2019-06-05 00:00:00 76 mm[Hg] [facility] Height 2019-06-05 00:00:00 64 [in_i] [facility] BMI (Body Mass Index) 2019-06-05 00:00:00 20.9 kg/m2 [facility] BP Systolic 2019-06-05 00:00:00 106 mm[Hg] [facility] Body Weight 2019-06-05 00:00:00 122 [lb_av] [facility] BP Diastolic 2019-05-08 00:00:00 69 mm[Hg] [facility] Height 2019-05-08 00:00:00 64 [in_i] [facility] BMI (Body Mass Index) 2019-05-08 00:00:00 20.5 kg/m2 [facility] BP Systolic 2019-05-08 00:00:00 107 mm[Hg] [facility] Body Weight 2019-05-08 00:00:00 119.4 [lb_av] [facility] BP Diastolic 2019-04-10 00:00:00 81 mm[Hg] [facility] Height 2019-04-10 00:00:00 64 [in_i] [facility] BMI (Body Mass Index) 2019-04-10 00:00:00 19.3 kg/m2 [facility] BP Systolic 2019-04-10 00:00:00 119 mm[Hg] [facility] Body Weight 2019-04-10 00:00:00 112.5 [lb_av] [facility] BP Diastolic 2019-04-04 00:00:00 85 mm[Hg] [facility] Height 2019-04-04 00:00:00 64 [in_i] [facility] BMI (Body Mass Index) 2019-04-04 00:00:00 19.4 kg/m2 [facility] BP Systolic 2019-04-04 00:00:00 132 mm[Hg] [facility] Body Weight 2019-04-04 00:00:00 113 [lb_av] [facility] BP Diastolic 2019-03-14 00:00:00 87 mm[Hg] [facility] Height 2019-03-14 00:00:00 64 [in_i] [facility] BMI (Body Mass Index) 2019-03-14 00:00:00 19.1 kg/m2 [facility] BP Systolic 2019-03-14 00:00:00 124 mm[Hg] [facility] Body Weight 2019-03-14 00:00:00 111 [lb_av] [facility] BP Diastolic 2019-02-14 00:00:00 97 mm[Hg] [facility] Height 2019-02-14 00:00:00 64 [in_i] [facility] BMI (Body Mass Index) 2019-02-14 00:00:00 20.6 kg/m2 [facility] BP Systolic 2019-02-14 00:00:00 135 mm[Hg] [facility] Body Weight 2019-02-14 00:00:00 120 [lb_av] [facility] BP Diastolic 2019-02-07 00:00:00 83 mm[Hg] [facility] Height 2019-02-07 00:00:00 64 [in_i] [facility] BMI (Body Mass Index) 2019-02-07 00:00:00 22 kg/m2 [facility] BP Systolic 2019-02-07 00:00:00 124 mm[Hg] [facility] Body Weight 2019-02-07 00:00:00 128.4 [lb_av] [facility] BP Diastolic 2019-01-26 00:00:00 84 mm[Hg] [facility] Height 2019-01-26 00:00:00 64 [in_i] [facility] BMI (Body Mass Index) 2019-01-26 00:00:00 22.4 kg/m2 [facility] BP Systolic 2019-01-26 00:00:00 128 mm[Hg] [facility] Body Weight 2019-01-26 00:00:00 130.4 [lb_av] [facility] Body Weight 2019-01-03 00:00:00 130.3 [lb_av] [facility] BP Diastolic 2019-01-03 00:00:00 76 mm[Hg] [facility] Height 2019-01-03 00:00:00 64 [in_i] [facility] BMI (Body Mass Index) 2019-01-03 00:00:00 22.4 kg/m2 [facility] BP Systolic 2019-01-03 00:00:00 118 mm[Hg] [facility] Procedures Procedure Date / Time Performed Performing Clinician Source FREE T4 [facility]20 [facility]20 [facility] ([id number]) 2022-11-20 20:48[facility] ([id number])(TOTAL CHOLESTEROL, TRIGLYCERIDES, HDL) 2022-11-20 20:48:00 Sarah [facility] CBC WITH DIFF 2022-11-20 20:48[facility] GLYC[facility]OGLOBIN (A1C) 2022-11-20 20:48:00 Sarah [facility] FREE T3 2022-11-20 20:48:00 Sarah [facility] US, transvaginal 2021-03-24 00:00:00 [facility] US, obstetric, limited 2019-08-02 00:00:00 [facility] US(FBP)W/0 NON STRESS TEST 2019-08-02 00:00:00 [facility] ULTRASOUND REPEAT 2019-07-05 00:00:00 [facility] US, obstetric, limited 2019-04-10 00:00:00 [facility] ULTRASOUND, UTERUS REAL TIME WITH IMAGE DOC, AND MATERNAL EVAL PLUS DETAILED ANATOMIC EXAMINATION, TRANSABDOMINAL APPROACH; SINGLE OR FIRST GESTATION 2019-04-10 00:00:00 [facility] US, obstetric, limited 2019-03-14 00:00:00 [facility] ULTRASOUND, UTERUS REAL TIME WITH IMAGE DOCUMENTAITON, TRANSVAGINAL 2019-02-14 00:00:00 [facility] ULTRASOUND, UTERUS REAL TIME WITH IMAGE DOCUMENTAITON, TRANSVAGINAL 2019-01-26 00:00:00 [facility] XR, hysterosalpingogram 2019-01-03 00:00:00 [facility] Cholecystectomy 2018-11-08 00:00:00 [facility] Dilation and Curettage 2014-09-08 00:00:00 [facility] Plan of Care Planned Activity Planned Date Details Comments Source Diagnostic Test Pending 2023-12-17 00:00:00 urinalysis, dipstick [code = urinalysis, dipstick] [facility] Diagnostic Test Pending 2023-12-17 00:00:00 test, urine [code = test, urine] [facility] Diagnostic Test Pending 2023-12-17 00:00:00 RPR (rapid plasma reagin), serum [code = RPR (rapid plasma reagin), serum] [facility] Diagnostic Test Pending 2023-12-17 00:00:00 HIV (1+2) Ab screen, serum [code = HIV (1+2) Ab screen, serum] [facility] Diagnostic Test Pending 2023-12-17 00:00:00 HBsAg (hepatitis B surface Ag), serum [code = HBsAg (hepatitis B surface Ag), serum] [facility] Diagnostic Test Pending 2023-12-17 00:00:00 STI panel [code = STI panel] [facility] Instructions [facility] Encounters Start Date/Time End Date/Time Encounter Type Admission Type Attending [facility] Care Department Encounter ID Source 2025-11-23 08:45:00 2025-11-23 08:45:00 Outpatient STEPHAN FLORES [id number] [facility] 2024-11-21 09:30:00 2024-11-21 09:30:00 Outpatient STEPHAN FLORES [id number] [facility] 2024-09-12 09:30:00 2024-09-12 09:30:00 Outpatient STEPHAN FLORES [id number] [facility] 2024-07-25 10:30:00 2024-07-25 10:30:00 Outpatient PARKER BENNETT [id number] [facility] 2024-07-05 15:00:00 2024-07-05 15:00:00 Outpatient PARKER BENNETT [id number] [facility] 2024-06-20 10:00:00 2024-06-20 10:00:00 Outpatient PARKER BENNETT [id number] [facility] 2024-05-25 10:30:00 2024-05-25 10:30:00 Outpatient ELOINA ZAYAS [id number] [facility] 2024-05-24 14:45:00 2024-05-24 14:45:00 Outpatient ELOINA Z[facility]AS [id number] [facility] 2024-05-18 00:00:00 2024-05-18 00:00:00 Outpatient DEEPA BENAVIDES [id number] [facility] 2024-05-13 00:00:00 2024-05-13 00:00:00 Outpatient DISHASHAHIDA MEADE TETE CRUM [id number] [facility] 2024-05-13 00:00:00 2024-05-13 00:00:00 Outpatient KENNEDY DEEPA TETE CRUM [id number] [facility] 2024-05-12 14:55:00 2024-05-12 14:55:00 Outpatient LAB90 TETE CRUM [id number] [facility] 2024-05-12 00:00:00 2024-05-12 00:00:00 Outpatient HUNDYas DEEPA TETE CRUM [id number] [facility] 2024-05-10 15:45:00 2024-05-10 15:45:00 Outpatient LABSteve TETE CRUM [id number] [facility] 2024-05-10 15:00:00 2024-05-10 15:00:00 Outpatient HUNDYas, DEEPA TETE CRUM [id number] [facility] 2024-04-27 09:00:00 2024-04-27 09:00:00 Outpatient HUNDYas, DEEPA CRUM [id number] [facility] 2024-04-26 15:00:00 2024-04-26 15:00:00 Outpatient KENNEDY DEEPA CRUM [id number] [facility] 2024-03-29 11:00:00 2024-03-29 11:00:00 Outpatient HUNDYas, DEEPA TETE CRUM [id number] [facility] 2024-03-10 10:15:00 2024-03-10 10:15:00 Outpatient SOYINKA, AIRATU TETE CRUM [id number] [facility] 2024-02-29 00:00:00 2024-02-29 00:00:00 Outpatient MD TETE REINA [id number] [facility] 2024-02-28 00:00:00 2024-02-28 00:00:00 Outpatient DEEPA BENAVIDES [id number] [facility] 2024-02-25 00:00:00 2024-02-25 00:00:00 Outpatient DEEPA BENAVIDES [id number] [facility] 2024-02-24 10:15:00 2024-02-24 10:15:00 Outpatient LAB90 TETE CRUM [id number] [facility] 2024-02-24 09:30:00 2024-02-24 09:30:00 Outpatient DEEPA BENAVIDES [id number] [facility] 2024-02-09 00:00:00 2024-02-09 00:00:00 Outpatient Rutledge_L MMG MMG [id number] [facility] 2024-01-26 08:15:00 2024-01-26 08:15:00 Outpatient LABSteve CRUM [id number] [facility] 2024-01-25 14:15:00 2024-01-25 14:15:00 Outpatient LABSteve CRUM [id number] [facility] 2024-01-25 13:30:00 2024-01-25 13:30:00 Outpatient DEEPA BENVAIDES [id number] [facility] 2024-01-11 13:30:00 2024-01-11 13:30:00 Outpatient SANDRA MACKEY [facility] [id number] [facility] 2024-01-07 00:00:00 2024-01-07 00:00:00 Outpatient Rutledge_L MMG MMG [id number] [facility] 2023-12-28 00:00:00 2023-12-28 00:00:00 Outpatient Rutledge_L MMG MMG [id number] 2023-12-17 11:19:00 2023-12-17 11:19:00 Outpatient PATRICIA MCHUGH [facility] [id number] [facility] 2023-12-17 00:00:00 2023-12-17 00:00:00 Outpatient Rutledge_L MMG MMG [id number] [facility] 2023-12-17 00:00:00 2023-12-17 00:00:00 CAROL Salmeron: [address], [address], [place] [address] , Ph. [phone] [facility] [id number] [facility] 2023-12-07 14:30:00 2023-12-07 14:30:00 Outpatient JOSEPH DOWLING [id number] [facility] 2023-12-06 00:00:00 2023-12-06 00:00:00 Outpatient TETE GALAN [id number] [facility] 2023-11-30 11:00:00 2023-11-30 11:00:00 Outpatient CEDRICK CARROLL [id number] [facility] 2023-11-23 09:30:00 2023-11-23 09:30:00 Outpatient SANDRA MACKEY [facility] [id number] [facility] 2023-10-21 00:00:00 2023-10-21 00:00:00 Anna Gunter MD: [address], [address], [place] [address] , Ph. [phone] [facility] [id number] [facility] 2023-10-20 00:00:00 2023-10-20 00:00:00 Outpatient Rutledge_L MMG MMG [id number] [facility] 2023-10-20 00:00:00 2023-10-20 00:00:00 Outpatient Rutledge_L MMG MMG [id number] [facility] 2023-10-13 09:07:18 2023-10-13 09:07:18 Outpatient SFA SFA [id number] Jose G Renteria 2023-07-22 00:00:00 2023-07-22 00:00:00 Outpatient Rutledge_L MMG MMG 0914 [facility] 2023-07-22 00:00:00 2023-07-22 00:00:00 Outpatient Rutledge_L MMG MMG [id number] [facility] 2023-06-29 09:08:00 2023-06-29 09:08:00 Outpatient PATRICIA MCHUGH [facility] [id number] [facility] 2023-06-29 00:00:00 2023-06-29 00:00:00 Outpatient Rutledge_L MMG MMG 821 [facility] 2023-06-29 00:00:00 2023-06-29 00:00:00 Patricia LORENA ThomasP-BC: [address], [address], [place] [address] , Ph. [phone] MMG [facility] OBGY [id number] [facility] 2022-11-20 15:30:00 2022-11-20 15:45:00 Monotype Mechanic Visit 2, Adc Lab Alvin Smithozzycarina [facility] [id number] [facility] 2022-11-20 14:00:00 2022-11-20 14:34:54 Outpatient R SARAHSANDRA [facility] [id number] [facility] 2022-11-20 14:00:00 2022-11-20 14:34:54 Office Visit Alvin Smithozzycarina [facility] [id number] [facility] 2022-10-23 00:00:00 2022-10-23 00:00:00 Outpatient Rutledge_L MMG MMG [id number] [facility] 2022-10-23 00:00:00 2022-10-23 00:00:00 Outpatient Rutledge_L MMG MMG [id number] [facility] 2022-10-23 00:00:00 2022-10-23 00:00:00 Outpatient Rutledge_L MMG MMG [id number] [facility] 2022-10-01 00:00:00 2022-10-01 00:00:00 Outpatient Rutledge_L MMG MMG [id number] [facility] 2022-09-25 00:00:00 2022-09-25 00:00:00 Outpatient Rutledge_L MMG MMG [id number] [facility] 2022-09-01 00:00:00 2022-09-01 00:00:00 Outpatient Rutledge_L MMG MMG [id number] [facility] 2022-08-05 00:00:00 2022-08-05 00:00:00 Outpatient Rutledge_L MMG MMG [id number] [facility] 2022-06-23 00:00:00 2022-06-23 00:00:00 Outpatient Rutledge_L MMG MMG [id number] [id number] [facility] 2022-06-22 00:00:00 2022-06-22 00:00:00 Tory Rodrigues MD: [address] [place] [address] , Ph. [phone] Rutledge_L MMG [facility] 0815 [facility] 2022-06-16 00:00:00 2022-06-16 00:00:00 Outpatient Rutledge_L MMG MMG [id number] [facility] 2022-05-08 10:22:00 2022-05-08 10:22:00 Outpatient ANNA ORNELAS [facility] [id number] [facility] 2022-05-08 00:00:00 2022-05-08 00:00:00 Anna Gunter MD: [address], [place] [address] , Ph. [phone] Rutledge_L MMG [facility] 07 [facility] 2022-03-18 00:00:00 2022-03-18 00:00:00 Anna Gunter MD: [address], [place] [address] , Ph. [phone] Rutledge_L MMG [facility] 0511 [facility] 2021-12-23 09:19:00 2021-12-23 09:19:00 Outpatient Rutledge_L MMG [facility] 214 [facility] 2021-12-18 00:00:00 2021-12-18 00:00:00 ALEXANDER Salmeron-BC: [address], [place] [address] , Ph. [phone] MM[facility] 209 [facility] 2021-12-17 04:22:00 2021-12-17 04:22:00 Outpatient Rutledge_L MMG [facility] [id number] [facility] 2021-10-10 05:04:00 2021-10-10 05:04:00 Outpatient FLOR YATES [facility] [id number] [facility] 2021-09-17 00:00:00 2021-09-17 00:00:00 LORENA SalmeronP-BC: [address] [address] , Ph. [phone] Rutledge_L MMG [facility] 111 [facility] 2021-09-02 00:00:00 2021-09-02 00:00:00 Patricia LORENA ThomasBC: [address], [place] [address] , Ph. [phone] Rutledge_L MMG [facility] 1026 [facility] 2021-08-27 11:50:00 2021-08-27 11:50:00 Outpatient Rutledge_L MMG MMG 1020 [facility] 2021-08-19 14:04:00 2021-08-19 14:04:00 Outpatient PATRICIA MCHUGH [facility] [id number] [facility] 2021-08-19 00:00:00 2021-08-19 00:00:00 Patricia Thomas [facility]: [address] [address] , Ph. [phone] Rutledge_L MMG [facility] 101 [facility] 2021-04-22 01:40:00 2021-04-22 01:40:00 Outpatient Rutledge_L MMG MMG 0615 [facility] 2021-04-14 14:56:00 2021-04-14 14:56:00 Outpatient ANNA ORNELAS [facility] [id number] [facility] 2021-04-11 00:00:00 2021-04-11 00:00:00 Anna Gunter MD: [address] [place] [address] , Ph. [phone] Rutledge_L MMG [facility] 0604 [facility] 2021-03-24 00:00:00 2021-03-24 00:00:00 Anna Gunter MD: 600 [facility] [address], [place] [address] , Ph. [phone] Rutledge[facility]L [facility]17 [facility] 2020-12-02 12:46:00 2020-12-02 12:46:00 Outpatient Rutledge_L MMG MMG [id number] [facility] 2020-11-27 03:56:00 2020-11-27 03:56:00 Outpatient Rutledge_L MMG MMG 012 [facility] 2020-11-25 02:38:00 2020-11-25 02:38:00 Outpatient Rutledge_L MMG MMG [id number] [facility] 2020-09-25 02:21:00 2020-09-25 02:21:00 Outpatient Rutledge_L MMG MMG 1118 [facility] 2020-09-24 00:00:00 2020-09-24 00:00:00 Tory Rodrigues MD: [address], [place] [address] , Ph. [phone] Rutledge_L MMG [facility] 1117 [facility] 2020-09-14 12:28:00 2020-09-14 12:28:00 Outpatient Rutledge_L MMG MMG 1107 [facility] 2020-08-20 00:00:00 2020-08-20 00:00:00 YOLIE Roa: [address], [place] [address] , Ph. [phone] Rutledge_L MMG [facility] OBGYN 1013 [facility] 2020-08-05 09:06:00 2020-08-05 09:06:00 Outpatient YARY CRUZ [facility] [id number] [facility] 2020-08-05 00:00:00 2020-08-05 00:00:00 YOLIE Roa: [address], [place] [address] , Ph. [phone] Rutledge_L [facility] 0928 [facility] 2020-05-04 11:32:00 2020-05-04 11:32:00 Outpatient Rutledge_L MMG MMG [id number] [facility] 2020-04-23 00:00:00 2020-04-23 00:00:00 Yary Ashleyzoraida Marinelli, NP: [address] [address] , Ph. [phone] [facility]L [facility] 0616 [facility] 2020-02-12 05:07:00 2020-02-12 05:07:00 Outpatient Rutledge_L MMG MMG [id number] [facility] 2020-01-15 10:29:00 2020-01-15 10:29:00 Outpatient Rutledge_L MMG MMG [id number] [facility] 2020-01-05 09:41:00 2020-01-05 09:41:00 Outpatient Rutledge_L MMG MMG [id number] [facility] 2020-01-04 06:57:00 2020-01-04 06:57:00 Outpatient Rutledge_L MMG MMG 7 [facility] 2020-01-02 00:00:00 2020-01-02 00:00:00 Tory Rodrigues MD: [address], [place] [address] , Ph. [phone] [facility]L [facility] 0225 [facility] 2019-12-19 03:47:00 2019-12-19 03:47:00 Outpatient Rutledge_L MMG MMG 0211 [facility] 2019-12-11 11:19:00 2019-12-11 11:19:00 Outpatient ARASH_ TEETEE YATES [id number] [facility] 2019-11-21 15:26:00 2019-11-21 18:03:00 Emergency ER AYAZ DURAND [facility] [id number] [facility] 2019-09-19 00:00:00 2019-09-19 00:00:00 YOLIE Roa: [address], [place] [address] , Ph. [phone] MMG [facility] 1112 [facility] 2019-08-02 00:00:00 2019-08-02 00:00:00 Tory Rodrigues MD: [address], [place] [address] , Ph. [phone] MM[facility] 924 [facility] 2019-07-19 00:00:00 2019-07-19 00:00:00 Tory Rodrigues MD: [address], [place] [address] , Ph. [phone] MMG [facility] 0911 [facility] 2019-07-06 09:19:00 2019-07-06 09:19:00 Outpatient TORY MARLEY [facility] [id number] [facility] 2019-07-05 00:00:00 2019-07-05 00:00:00 Tory Rodrigues MD: [address], [place] [address] , Ph. [phone] MMG [facility] 0828 [facility] 2019-06-05 00:00:00 2019-06-05 00:00:00 Tory Rodrigues MD: [address], [place] [address] , Ph. [phone] MM[facility] O[facility]YN 0729 [facility] 2019-05-08 00:00:00 2019-05-08 00:00:00 Tory Rodrigues MD: [address], [place] [address] , Ph. [phone] MM[facility] OBGYN 0701 [facility] 2019-04-17 13:48:00 2019-04-17 19:06:00 Emergency ER MIKE LYONS [facility] [id number] [facility] 2019-04-10 12:12:00 2019-04-10 12:12:00 Outpatient EL TORY RODRIGUES [facility] [id number] [facility] 2019-04-10 00:00:00 2019-04-10 00:00:00 Tory Rodrigues MD: [address], [place] [address] , Ph. [phone] [facility] 0603 [facility] 2019-04-04 00:00:00 2019-04-04 00:00:00 Bernardo Robles MD: [address], [place] [address] , Ph. [phone] [facility] surgery 28 [facility] 2019-03-14 12:48:00 2019-03-16 12:45:00 Inpatient ER JOLENE TORY [facility] [id number] [facility] 2019-03-14 00:00:00 2019-03-14 00:00:00 Tory Rodrigues MD: [address], [place] [address] , Ph. [phone] MM[facility] OBGY 0507 [facility] 2019-02-27 20:24:00 2019-02-28 07:32:00 Emergency ER OWEN RINCON [facility] [id number] [facility] 2019-02-14 16:28:00 2019-02-16 13:00:00 Inpatient TORY MARELY [facility] [id number] [facility] 2019-02-14 00:00:00 2019-02-14 00:00:00 Tory Rodrigues MD: [address], [place] [address] , Ph. [phone] MM[facility] OBGY [id number] 0409 [facility] 2019-02-07 00:00:00 2019-02-07 00:00:00 Tory Rodrigues MD: [address], [place] [address] , Ph. [phone] MM[facility] OBGYN [id number] 0402 [facility] 2019-01-26 09:24:00 2019-01-26 09:24:00 Outpatient TORY MARLEY [facility] [id number] [facility] 2019-01-26 00:00:00 2019-01-26 00:00:00 Tory Rodrigues MD: [address], [place] [address] , Ph. [phone] MM[facility] OBGY [id number] 0321 [facility] 2019-01-24 15:52:00 2019-01-24 15:52:00 Outpatient TORY MARLEY [facility] [id number] [facility] 2019-01-03 11:55:00 2019-01-03 11:55:00 Outpatient TORY MARLEY [facility] [id number] [facility] 2019-01-03 00:00:00 2019-01-03 00:00:00 Tory Rodrigues MD: [address], [address], [place] [address] , Ph. [phone] [facility] [id number] 0226 [facility] 2018-11-25 20:29:00 2018-11-25 20:29:00 Emergency ER EKATERINA FABIO [facility] [id number] [facility] 2018-01-20 16:27:00 2018-01-20 20:45:00 Emergency ER GRAZYNA PEDRAZA [facility] [id number] [facility] 2017-11-14 14:05:00 2017-11-14 16:35:00 Emergency ER MARY HOLLY [facility] [id number] [facility] 2016-11-09 21:51:00 2016-11-09 23:24:00 Emergency ER RAMIRO MAY [facility] [id number] [facility] 2016-06-26 10:24:00 2016-06-26 10:24:00 Outpatient TORY MARLEY [facility] [id number] [facility] 2015-11-14 15:25:00 2015-11-14 15:25:00 Outpatient KATELYNN PATEL [facility] [id number] [facility] 2015-11-09 16:47:00 2015-11-09 17:19:00 Emergency ER GRAZYNA PEDRAZA [facility] [id number] [facility] 2015-10-16 14:20:00 2015-10-16 15:56:00 Emergency ER RAMIRO MAY [facility] [id number] [facility] 2015-05-12 12:25:00 2015-05-12 14:27:00 Emergency ER YUNG MEDEIROS [facility] [id number] [facility] 2014-12-23 15:21:00 2014-12-23 20:00:00 Emergency ER Rene Goins [facility] [id number] [facility] 2014-09-11 10:40:00 2014-09-11 10:40:00 Outpatient GRETCHEN RODRIGUESTORY [facility] [id number] [facility] 2014-09-09 14:01:00 2014-09-09 18:52:00 Emergency ER NATALIE HURD [facility] [id number] [facility] 2014-09-03 08:02:00 2014-09-03 10:15:00 Emergency ER NADINE PINTO [facility] [id number] [facility] 2014-08-06 13:02:00 2014-08-06 13:49:00 Emergency ER UGORJI, CLEMENT [facility] [id number] [facility] 2013-03-30 12:05:00 2013-03-30 13:50:00 Emergency ER UGORJI, CLEMENT [facility] [id number] [facility] 2013-02-01 08:56:00 2013-02-01 09:28:00 Emergency ER OWEN RINCON [facility] [id number] [facility] 2012-09-06 20:15:00 2012-09-06 22:25:00 Emergency ER LALO, CLEMENT [facility] [id number] [facility] 2012-05-18 22:48:00 2012-05-19 00:24:00 Emergency ER SHEIKH WASEDILSON [facility] [id number] [facility] 2011-12-23 07:58:00 2011-12-23 10:25:00 Emergency ER IRUKE, OWEN [facility] [id number] [facility] 2011-11-11 15:39:00 2011-11-13 10:42:00 Inpatient TORY MARLEY [facility] [id number] [facility] Results Test Description Test Time Test Comments Results Result Co mments Source [facility] - [id number] 10:44:10* Test Item Value Reference Range Interpretation Comme nts Leukocytes (test code = Leukocytes) Negative Nitrite (test code = Nitrite) negative Urobilinogen (test code = Urobilinogen) 1 Protein (test code = Protein) Negative pH (test code = pH) 6.0 Blood (test code = Blood) Negative Specific [place] (test code = Specific [place]) 1.025 Ketone (test code = Ketone) Negative Bilirubin (test code = Bilirubin) Negative Glucose (test code = Glucose) Negative Appearance (test code = Appearance) Clear Color (test code = Color) Yellow [facility] test, [id number] 10:16:15* Test Item Value Reference Range Interpretation Comme nts Test (test code = Test) negative [place] CenterHCG ptfnkasoimyt5656-73-75 10:25:00* Test Item Value Reference Range Interpretation Comme nts HCG quantitative (test code = HCG quantitative) < 0.1 0-5 [facility] CenterUrinalysis macro (dipstick) panel - [id number] 08:30:30* Test Item Value Reference Range Interpretation Comme nts Leukocytes (test code = Leukocytes) Negative Nitrite (test code = Nitrite) negative Urobilinogen (test code = Urobilinogen) 1 Protein (test code = Protein) Negative pH (test code = pH) 6.0 Blood (test code = Blood) Negative Specific [place] (test code = Specific [place]) 1.030 Ketone (test code = Ketone) Negative Bilirubin (test code = Bilirubin) Negative Glucose (test code = Glucose) Negative Appearance (test code = Appearance) Clear Color (test code = Color) Yellow [facility] Grouppregnancy test, qawos4605-89-15 08:25:46* Test Item Value Reference Range Interpretation Comme nts Test (test code = Test) negative [facility] - cancer history assessment wllbzm0333-07-01 07:34:00 * Test Item Value Reference Range Interpretation Comme nts mg - cancer history assessment result (test code = mg - cancer history assessment result) meets criteria A [facility]ouppregnancy test, [id number] 16:10:50* Test Item Value Reference Range Interpretation Comme nts Test (test code = Test) negative [facility] GroupMicroscopic observation [Identifier] in Vaginal fluid by Wet drytyzmclmv1716-36-17 10:17:41* Test Item Value Reference Range Interpretation Comme nts Clue Cells (test code = Clue Cells) negative WBCs (test code = WBCs) negative Trichomonads (test code = Trichomonads) negative Epithelial cells (test code = Epithelial cells) normal RBCs (test code = RBCs) positive [facility]oupp[facility] test, [id number] 18:02:09* Test Item Value Reference Range Interpretation Comme nts Test (test code = Test) negative [facility] test, [id number] 11:50:35* Test Item Value Reference Range Interpretation Comme nts Test (test code = Test) negative [facility]pp[facility] test, vnnwc3451-04-79 15:40:27* Test Item Value Reference Range Interpretation Comme nts Test (test code = Test) negative [facility]pp[facility] test, [id number] 14:38:52* Test Item Value Reference Range Interpretation Comme nts Test (test code = Test) negative [facility] GroupCT + NG + TV, DNA, urine/[id number] 00:00:00* Test Item Value Reference Range Interpretation [...] to antibiotic resistance by molecular analysis)) negative [facility]pap, LB + [id number] 00:00:00* Test Item Value Reference Range Interpretation Comme nts HPV type-detect 4.0 by real time PCR high risk subtypes only (test code = HPV type-detect 4.0 by real time PCR high risk subtypes only) not detected liquid Pap test (test code = liquid Pap test) normal [facility] W Auto Differential panel - [id number] 12:15:00 * Test Item Value Reference Range Interpretation Comme nts white blood count (test code = white blood count) 5.0 K/uL 4.0-11.5 red blood count (test code = red blood count) 4.15 M/uL 3.80-5.20 hemoglobin (test code = hemoglobin) 12.9 g/dL 10.5-15.7 hematocrit (test code = hematocrit) 40.9 % 34.0-50.0 MCV [Entitic volume] (test c ode = 26777-4) 98.6 fL 86-100 mean corpuscular hemoglobin (test [...] neutrophils/100 leukocytes in Blood (test code = 99228-4) 46.5 % 44.4-80.1 Immature granulocytes [#/vol ume] in Blood (test code = 80912-0) 0.0 K/uL 0.0-0.03 lymphocyte% (test code = lymphocyte%) 44.6 % 10.0-50.0 mono % (test code = mono %) 6.3 % 3.6-12.0 eos % (test code = eos %) 1.6 % 0.0-5.4 Basophils/100 leukocytes in Unspecified specimen (test code = 29764-0) 1.0 % 0.1-1.2 Band form neutrophils [#/vol ume] in Blood (test code = 94631-4) 2.34 K/uL 1.56-6.13 Lymphocytes [#/volume] in Unspecified specimen by Automated count (test code = 02991-2) 2.3 K/uL 1.18-3.74 mono # (test code = mono #) 0.32 K/uL 0.24-0.86 eos # (test code = eos #) 0.08 K/uL 0.04-0.36 basophil # (test code = baso damir #) 0.05 K/uL 0.01-0.08 NRBC% (test code = NRBC%) 0 /100 WBC 0-0.2 NRBC# (test code = NRBC#) 0 K/uL [facility] CenterComprehensive metabolic 2000 panel - Serum or [...] (test code = 6768-6) 66 U/L 35-105 [facility] CenterReagin Ab [Presence] in Serum by [id number] 00:00:00* Test Item Value Reference Range Interpretation Comme nts Reagin Ab [Presence] in Seru m by RPR (test code = 75305-9) nonreactive nonreactive [facility] CenterDifferential panel, method unspecified - [id number] 00:00:00NeutrophilsBandLymphocyteAtypical LymphMonocyteEosinophilBasophilMetamyelocyteMyelocytePromyelocyteBlastsNucleated Red Blood CellAbs Neutrophil Count (Man)Abs Lymph Count (Man)Abs Monocyte Count (Man)Abs Eosinophil Count (Man)Abs Basophil Count (Man)Platelet EstimatePlatelet MorphologyPolychromasiaMacrocytosisHypersegmented Polys [facility] CenterThyrotropin [Units/volume] in Serum or Ohrmcd0803-03-15 00:00:00* Test Item Value Reference Range Interpretation Comme nts Thyrotropin [Units/volume] i n Serum or Plasma (test code = 3016-3) 0.95 uIU/mL 0.36-3.74 [facility] CenterThyroxine (T4) free [Mass/volume] in Serum or Plasma 2021-08-19 00:00:00* Test Item Value Reference Range Interpretation Comme nts free T4 (test code = free T4) 0.96 NG/dL 0.93-1.7 [facility] GroupHIV 1+2 Ab [Presence] in [id number] 00:00:00HIV P24 AgHIV-1/2 AbMataMerit Health River RegionHepatitis B virus surface Ag [Presence] in Glcpb7322-10-76 00:00:00* Test Item Value Reference Range Interpretation Comme nts .hepatitis B surface antigen (test code = .hepatitis B surface antigen) negative negative [facility] GroupUrinalysis macro (dipstick) panel - [id number] 16:06:55* Test Item Value Reference Range Interpretation Comme nts Leukocytes (test code = Leukocytes) Negative Nitrite (test code = Nitrite) negative Urobilinogen (test code = Urobilinogen) .2 Protein (test code = Protein) Negative pH (test code = pH) 7.0 Blood (test code = Blood) Non-Hemolyzed: Trace Specific [place] (test code = Specific [place]) 1.020 Ketone (test code = Ketone) Negative Bilirubin (test code = Bilirubin) Negative Glucose (test code = Glucose) Negative Appearance (test code = Appearance) Clear Color (test code = Color) Yellow [facility] Grouppregnancy test, [id number] 16:22:27* Test Item Value Reference Range Interpretation Comme nts Test (test code = Test) negative [facility] GroupUrinalysis macro (dipstick) panel - [id number] 16:22:10* Test Item Value Reference Range Interpretation Comme nts Leukocytes (test code = Leukocytes) Negative Nitrite (test code = Nitrite) negative Urobilinogen (test code = Urobilinogen) .2 Protein (test code = Protein) Negative pH (test code = pH) 7.0 Blood (test code = Blood) Negative Specific [place] (test code = Specific [place]) 1.025 Ketone (test code = Ketone) Negative Bilirubin (test code = Bilirubin) Negative Glucose (test code = Glucose) Negative Appearance (test code = Appearance) Clear Color (test code = Color) Yellow [facility] GroupReagin Ab [Presence] in Serum by [id number] 06:56:00* Test Item Value Reference Range Interpretation Comme nts Reagin Ab [Presence] in Seru m by RPR (test code = 26226-7) nonreactive nonreactive [facility] GroupHIV 1+2 Ab [Presence] in Lycun8836-32-57 06:56:00HIV P24 AgHIV-1/2 AbMatagoNorth Mississippi State HospitalHepatitis B virus surface Ag [Presence] in [id number] 06:56:00* Test Item Value Reference Range Interpretation Comme nts .hepatitis B surface antigen (test code = .hepatitis B surface antigen) negative negative [facility] CenterHepatitis C virus RNA [Units/volume] (viral load) in Serum or Plasma by Probe with signal ijdgslivsrnwu1657-65-60 06:56:00* Test Item Value Reference Range Interpretation Comme nts hepatitis C RNA CHICO,qual (te st code = hepatitis C RNA CHICO,qual) negative negative [facility] Centerpregnancy test, kagzy6661-56-23 11:12:00* Test Item Value Reference Range Interpretation Comme nts Test (test code = Test) negative [facility] CenterPLACENT THIRD [id number] 17:41:00 RUN DATE: 08/31/19 [facility] PAGE 1 RUN TIME: 914 Specimen Inquiry RUN USER: INTERFACE -------- ----PATIENT: JADE MURILLO LOC: JULY U #: [id number] AGE/SX: 29/F ROOM: 2023 RE08/02/19REGDR: Isaiah Chase MD, DOB: [birth year] BED: A DIS: 08/30/19 STATUS: DIS IN TLOC: SPEC #: [id number] RECD: 08/26/19 STATUS: SANDY REQ #: [id number] ILENE: 08/26/19- SUBM DR: Isaiah Chase MD ENTERED: 08/28/19 SP TYPE: PLACIII OTHR DR: ORDERED: LEVEL V SURGICA CODES: [id number] - PLACENTA, NOS PROCEDURES: LEVEL V SURGICA (Incomplete) TISSUES: PLACENTA, NOS - PLACENTA CLINICAL HISTORY 28 year old, 35.5 weeks, [id number], section, abnormal cord doppler, severe IUGR, prematurity, non-reassuring monitoring, increased SD ratios (kr) FINAL DIAGNOSIS Placenta, 35.5 weeks gestational age, section: - third trimester placenta, 300 gms (10th percentile) - meconium macrophages within membranes - patchy villous edema - marginally inserted trivascular umbilical cord and membranes free of inflammation CPT code(s): 76720 [facility] 08/30/19 GROSS DESCRIPTION The [...] Specimen Inquiry RUN USER: INTERFACE SPEC #: [id number] PATIENT: JADE MURILLO #[id number] (Continued) GROSS DESCRIPTION (Continued) Accessory lobes: None [...] code = PLTMR) NORMAL NORMAL CBC W/AUTO [id number] 05:33:00* Test Item Value Reference Range Interpretation [...] code = PLTMR) NORMAL NORMAL CBC W/AUTO [id number] 05:29:00* Test Item Value Reference Range Interpretation [...] (test code = PLTMR) NORMAL NORMAL URINALYSIS [id number] 22:37:00* Test Item Value Reference Range Interpretation [...] = MUCU) RARE NONE SEEN CBC W/AUTO [id number] 18:07:00* Test Item Value Reference Range Interpretation [...] = PLTMR) NORMAL NORMAL AG HEPATITIS B [id number] 00:46:00* Test Item Value Reference Range Interpretation Comme nts AG HEPATITIS B SURFACE (test code = HBSAG) NONREACTIVE NONREACTIVE IS CONSENT FORM SIGNED FOR HIV TESTING? YAB HEPATITIS C [id number] 00:46:00* Test Item Value Reference Range Interpretation Comme nts AB HEPATITIS C (test code = HCVAB) NONREACTIVE NONREACTIVE SIGNAL TO CUTOFF (test code = CUTOFF) 0.12 <0.80 N IS CONSENT FORM SIGNED FOR HIV TESTING? YRUBELLA [id number] 00:46:00* Test Item Value Reference Range Interpretation Comme nts RUBELLA SCREEN (test code = RUBSC) 78.5 IUnit/ml Results >10.0IUn its/ml are considered positive inaccordance with the CLSI guidelines and based on the WHO International Standard for Anti-Rubella serum as anindicator of immune status and a breakpoint to detect mostseropositive persons. IS CONSENT FORM SIGNED FOR HIV TESTING? YAB [id number] 00:46:00* Test Item Value Reference Range Interpretation Comme nts AB TREPONEMA (test code = TREPAB) NONREACTIVE NONREACTIVE IS CONSENT FORM SIGNED FOR HIV TESTING? B HIV 1 00:46:00* Test Item Value Reference Range Interpretation Comme nts AB HIV 1 2 (test code = JSH37UU) NONREACTIVE NONREACTIVE Done by [employer]osc[employer] 4th Gen HIV Ag/Ab Combo Screen IS CONSENT FORM SIGNED FOR HIV TESTING? YAG HEPATITIS B [id number] 00:10:00* Test Item Value Reference Range Interpretation Comme nts AG HEPATITIS B SURFACE (test code = HBSAG) NONREACTIVE NONREACTIVE IS CONSENT FORM SIGNED FOR HIV TESTING? YAB HEPATITIS C [id number] 00:10:00* Test Item Value Reference Range Interpretation Comme nts AB HEPATITIS C (test code = HCVAB) NONREACTIVE SIGNAL TO CUTOFF (test code = CUTOFF) <0.80 IS CONSENT FORM SIGNED FOR HIV TESTING? YRUBELLA [id number] 00:10:00* Test Item Value Reference Range Interpretation Comme nts RUBELLA SCREEN (test code = RUBSC) 78.5 IUnit/ml Results >10.0IUn its/ml are considered positive inaccordance with the CLSI guidelines and based on the WHO International Standard for Anti-Rubella serum as anindicator of immune status and a breakpoint to detect mostseropositive persons. IS CONSENT FORM SIGNED FOR HIV TESTING? YAB [id number] 00:10:00* Test Item Value Reference Range Interpretation Comme nts AB TREPONEMA (test code = TREPAB) NONREACTIVE NONREACTIVE IS CONSENT FORM SIGNED FOR HIV TESTING? YAB HIV 1 00:10:00* Test Item Value Reference Range Interpretation Comme nts AB HIV 1 2 (test code = ZHD25IQ) NONREACTIVE IS CONSENT FORM SIGNED FOR HIV TESTING? YCBC W/AUTO [id number] 23:05:00* Test Item Value Reference Range Interpretation [...] = PLTMR) NORMAL NORMAL Biophysical profile panel [id number] 09:13:00* Test Item Value Reference Range Interpretation Comme nts Amniotic Fluid Index (test c ode = Amniotic Fluid Index) 2 Tone (test code = Tone) 2 Breathing (test code = Breathing) 2 Movement (test code = Movement) 2 [facility] CenterUrinalysis macro (dipstick) panel - [id number] 09:21:00* Test Item Value Reference Range Interpretation Comme nts Leukocytes (test code = Leukocytes) Trace Nitrite (test code = Nitrite) negative Urobilinogen (test code = Urobilinogen) .2 Protein (test code = Protein) Negative pH (test code = pH) 7.0 Blood (test code = Blood) Negative Specific [place] (test code = Specific [place]) 1.020 Ketone (test code = Ketone) Negative Bilirubin (test code = Bilirubin) Negative Glucose (test code = Glucose) Negative Appearance (test code = Appearance) Clear Color (test code = Color) Dark Yellow [facility] GroupUrinalysis macro (dipstick) panel - [id number] 11:07:00* Test Item Value Reference Range Interpretation Comme nts Leukocytes (test code = Leukocytes) Negative Nitrite (test code = Nitrite) negative Urobilinogen (test code = Urobilinogen) 1 Protein (test code = Protein) Negative pH (test code = pH) 7.0 Blood (test code = Blood) Negative Specific [place] (test code = Specific [place]) 1.020 Ketone (test code = Ketone) Negative Bilirubin (test code = Bilirubin) Negative Glucose (test code = Glucose) Negative Appearance (test code = Appearance) Clear Color (test code = Color) Yellow [facility] CenterCandida sp DNA [Presence] in Vaginal fluid by Probe and target amplification [id number] 00:00:00* Test Item Value Reference Range Interpretation [...] luis m glabrata by real-time PCR) negative [facility] GroupColony count [#/volume] in [id number] 00:00:00* Test Item Value Reference Range Interpretation [...] = pseudomonas aeruginosa by real-time PCR) negative [facility] Centerbacterial vaginosis panel, [id number] 00:00:00* Test Item Value Reference Range Interpretation [...] panel) by real time PCR) see comment [facility] [id number] 09:45:00Results [facility] W Auto Differential panel - [id number] 04:12:00 * Test Item Value Reference Range Interpretation Comme nts white blood count (test code = white blood count) 7.2 K/uL 4.0-11.5 red blood count (test code = red blood count) 3.69 M/uL 3.80-5.20 L Hemoglobin [Mass/volume] in Blood (test code = 718-7) 11.5 g/dL 10.5-15.7 hematocrit (test code = hematocrit) 35.0 % 34.0-50.0 Erythrocyte mean corpuscular volume [Entitic volume] (test code = 18433-5) 94.8 fL 78-98 Erythrocyte mean corpuscular hemoglobin [Entitic mass] (test code = 88342-5) 31.3 pg 26.2-33.4 mean corpuscular HGB conc (t est code = mean corpuscular HGB conc) 33.0 g/dL 31.5-36.2 red cell distribution width (test code = red cell distribution width) 11.3 % 11.5-15.5 L Platelets [#/volume] in Bloo d (test code = 57390-7) 221 K/uL 137-338 Platelet mean volume [Entiti c volume] in Blood (test code = 62940-5) 8.5 fL 8.4-11.8 Neutrophils.band form/100 leukocytes in Blood (test code = 15817-8) 95.1 % 44.4-80.1 Lymphocytes/100 leukocytes i n Body fluid (test code = 58818-8) 4.0 % 10.0-50.0 L Monocytes/100 leukocytes in Blood by Automated count (test code = 5905-5) 0.6 % 3.6-12.04 L Eosinophils/100 leukocytes i n Blood by Automated count (test code = 713-8) 0.1 % 0.0-5.41 Basophils/100 leukocytes in Unspecified specimen (test code = 87980-1) 0.2 % 0.0-0.79 [facility] Centerdifferential panel, [id number] 04:12:00 NeutrophilsBandLymphocyteAtypical LymphMonocyteEosinophilBasophilPlatelet EstimatePlatelet MorphologyTarget CellsToxic GranulationToxic Vacuolation [facility] W Auto Differential panel - [id number] 03:30:00 * Test Item Value Reference Range [...] corpuscular volume [Entitic volume] (test code = 17503-0) 95.8 fL 78-98 Erythrocyte mean corpuscular hemoglobin [Entitic mass] (test code = 48888-1) 31.2 pg 26.2-33.4 mean corpuscular HGB conc (t est code = mean corpuscular HGB conc) 32.6 g/dL 31.5-36.2 red cell distribution width (test code = red cell distribution width) 11.2 % 11.5-15.5 L Platelets [#/volume] in Bloo d (test code = 60714-5) 184 K/uL 137-338 Platelet mean volume [Entiti c volume] in Blood (test code = 63867-1) 8.4 fL 8.4-11.8 Neutrophils.band form/100 leukocytes in Blood (test code = 61507-9) 59.6 % 44.4-80.1 Lymphocytes/100 leukocytes i n Body fluid (test code = 84659-6) 31.9 % 10.0-50.0 Monocytes/100 leukocytes in Blood by Automated count (test code = 5905-5) 5.9 % 3.6-12.04 Eosinophils/100 leukocytes i n Blood by Automated count (test code = 713-8) 1.0 % 0.0-5.41 Basophils/100 leukocytes in Unspecified specimen (test code = 42969-2) 1.5 % 0.0-0.79 H [facility] Centerdifferential panel, [id number] 03:30:00 NeutrophilsLymphocyteMonocytePlatelet EstimatePlatelet MorphologyDiamond Grove CenterComprehensive metabolic 2000 panel - Serum or [id number] 03:30:00* Test Item Value Reference Range Interpretation [...] (test code = 6768-6) 52 U/L 35-105 [facility] W Auto Differential panel - [id number] 12:57:00 * Test Item Value Reference Range Interpretation Comme nts white blood count (test code = white blood count) 4.5 K/uL 4.0-11.5 red blood count (test code = red blood count) 4.04 M/uL 3.80-5.20 Hemoglobin [Mass/volume] in Blood (test code = 718-7) 12.7 g/dL 10.5-15.7 hematocrit (test code = hematocrit) 38.3 % 34.0-50.0 Erythrocyte mean corpuscular volume [Entitic volume] (test code = 72395-5) 94.8 fL 78-98 Erythrocyte mean corpuscular hemoglobin [Entitic mass] (test code = 03524-5) 31.5 pg 26.2-33.4 mean corpuscular HGB conc (t est code = mean corpuscular HGB conc) 33.2 g/dL 31.5-36.2 red cell distribution width (test code = red cell distribution width) 11.2 % 11.5-15.5 L Platelets [#/volume] in Bloo d (test code = 19828-5) 261 K/uL 137-338 Platelet mean volume [Entiti c volume] in Blood (test code = 18986-3) 9.0 fL 8.4-11.8 Neutrophils.band form/100 leukocytes in Blood (test code = 19201-6) 67.1 % 44.4-80.1 Lymphocytes/100 leukocytes i n Body fluid (test code = 90938-7) 24.5 % 10.0-50.0 Monocytes/100 leukocytes in Blood by Automated count (test code = 5905-5) 6.1 % 3.6-12.04 Eosinophils/100 leukocytes i n Blood by Automated count (test code = 713-8) 0.4 % 0.0-5.41 Basophils/100 leukocytes in Unspecified specimen (test code = 62158-8) 1.9 % 0.0-0.79 H [facility] Centerdifferential panel, [id number] 12:57:00 NeutrophilsLymphocyteMonocytePlatelet EstimatePlatelet MorphologyMaMerit Health WesleyComprehensive metabolic 2000 panel - Serum or Jenzjs4840-03-20 12:57:00* Test Item Value Reference Range Interpretation [...] (test code = 6768-6) 71 U/L 35-105 [facility] CenterUrinalysis macro (dipstick) panel - [id number] 12:22:43* Test Item Value Reference Range Interpretation Comme nts Leukocytes (test code = Leukocytes) Trace Nitrite (test code = Nitrite) positive Urobilinogen (test code = Urobilinogen) 8 Protein (test code = Protein) 100 pH (test code = pH) 6.0 Blood (test code = Blood) Negative Specific [place] (test code = Specific [place]) 1.020 Ketone (test code = Ketone) Large (80) Bilirubin (test code = Bilirubin) Large Glucose (test code = Glucose) Negative Appearance (test code = Appearance) Clear Color (test code = Color) Dark Yellow [facility] CenterHemoglobin and Hematocrit panel - [id number] 06:06:00* Test Item Value Reference Range Interpretation Comme nts Hemoglobin [Mass/volume] in Blood (test code = 718-7) 13.1 g/dL 10.5-15.7 hematocrit (test code = hematocrit) 39.2 % 34.0-50.0 [facility] CenterComprehensive metabolic 2000 panel - Serum or [...] (test code = 6768-6) 54 U/L 35-105 [facility] CenterHemoglobin and Hematocrit panel - [id number] 08:02:00* Test Item Value Reference Range Interpretation Comme nts Hemoglobin [Mass/volume] in Blood (test code = 718-7) 11.9 g/dL 10.5-15.7 hematocrit (test code = hematocrit) 34.5 % 34.0-50.0 [facility] CenterComprehensive metabolic 2000 panel - Serum or [...] (test code = 6768-6) 48 U/L 35-105 [facility] CenterCB W Auto Differential panel - [id number] 02:57:00 * Test Item Value Reference Range Interpretation Comme nts white blood count (test code = white blood count) 5.1 K/uL 4.0-11.5 red blood count (test code = red blood count) 4.29 M/uL 3.80-5.20 Hemoglobin [Mass/volume] in Blood (test code = 718-7) 14.0 g/dL 10.5-15.7 hematocrit (test code = hematocrit) 41.3 % 34.0-50.0 Erythrocyte mean corpuscular volume [Entitic volume] (test code = 41801-7) 96.3 fL 78-98 Erythrocyte mean corpuscular hemoglobin [Entitic mass] (test code = 09769-0) 32.6 pg 26.2-33.4 mean corpuscular HGB conc (t est code = mean corpuscular HGB conc) 33.9 g/dL 31.5-36.2 red cell distribution width (test code = red cell distribution width) 10.3 % 11.5-15.5 L Platelets [#/volume] in Bloo d (test code = 68726-6) 216 K/uL 137-338 Platelet mean volume [Entiti c volume] in Blood (test code = 14697-3) 9.2 fL 8.4-11.8 Neutrophils.band form/100 leukocytes in Blood (test code = 03235-2) 69.8 % 44.4-80.1 Lymphocytes/100 leukocytes i n Body fluid (test code = 82651-1) 22.0 % 10.0-50.0 Monocytes/100 leukocytes in Blood by Automated count (test code = 5905-5) 6.1 % 3.6-12.04 Eosinophils/100 leukocytes i n Blood by Automated count (test code = 713-8) 0.3 % 0.0-5.41 Basophils/100 leukocytes in Blood by Automated count (test code = 706-2) 1.8 % 0.0-0.79 H [facility] Centerdifferential panel, [id number] 02:57:00 NeutrophilsBandLymphocyteAtypical LymphMonocyteEosinophilBasophilPlatelet EstimatePlatelet MorphologyPoikilocytosisTarget CellsHypersegmented PolysRouleauToxic VacuolationSmudge CellsDiamond Grove CenterComprehensive metabolic 2000 panel - Serum or [id number] 02:57:00* Test Item Value Reference Range Interpretation [...] (test code = 6768-6) 57 U/L 35-105 [facility] CenterRubella virus IgG Ab [Titer] in Vydsw5225-45-20 07:30:00 * Test Item Value Reference Range Interpretation Comme nts Rubella virus IgG Ab [Units/volume] in Serum by Immunoassay (test code = 5334-8) 106.7 [IU]/mL [facility] W Auto Differential panel - [id number] 07:30:00 * Test Item Value Reference Range Interpretation Comme nts white blood count (test code = white blood count) 5.0 K/uL 4.0-11.5 red blood count (test code = red blood count) 3.92 M/uL 3.80-5.20 Hemoglobin [Mass/volume] in Blood (test code = 718-7) 12.9 g/dL 10.5-15.7 hematocrit (test code = hematocrit) 38.7 % 34.0-50.0 Erythrocyte mean corpuscular volume [Entitic volume] (test code = 27817-6) 98.7 fL 78-98 H Erythrocyte mean corpuscular hemoglobin [Entitic mass] (test code = 88383-3) 33.0 pg 26.2-33.4 mean corpuscular HGB conc (t est code = mean corpuscular HGB conc) 33.4 g/dL 31.5-36.2 red cell distribution width (test code = red cell distribution width) 11.3 % 11.5-15.5 L Platelets [#/volume] in Bloo d (test code = 95649-1) 207 K/uL 137-338 Platelet mean volume [Entiti c volume] in Blood (test code = 14762-0) 7.7 fL 8.4-11.8 L Neutrophils.band form/100 leukocytes in Blood (test code = 12695-3) 54.8 % 44.4-80.1 Lymphocytes/100 leukocytes i n Body fluid (test code = 51145-6) 35.5 % 10.0-50.0 Monocytes/100 leukocytes in Blood by Automated count (test code = 5905-5) 6.5 % 3.6-12.04 Eosinophils/100 leukocytes i n Blood by Automated count (test code = 713-8) 1.4 % 0.0-5.41 Basophils/100 leukocytes in Blood by Automated count (test code = 706-2) 1.7 % 0.0-0.79 H [facility] Groupdifferential panel, [id number] 07:30:00 NeutrophilsBandLymphocyteMonocytePlatelet EstimateMatagorda Medical GroupRubella virus Ab [Titer] in [id number] 07:30:00* Test Item Value Reference Range Interpretation Comme nts Rubella virus IgG Ab [Units/volume] in Serum by Immunoassay (test code = 5334-8) 106.7 [IU]/mL [facility] GroupHIV 1+2 Ab [Presence] in [id number] 07:30:00HIV P24 AgHIV-1/2 AbMatagorda Medical GroupABO & Rh group [Type] in [id number] 07:30:00* Test Item Value Reference Range Interpretation Comme nts Rh [Type] in Blood (test cod e = 27691-2) 4+ ABO and Rh group panel - Blo od (test code = 52453-0) Ab positive [facility] GroupBlood group antibody screen [Presence] in Serum or Plasma 2019-01-26 07:30:00* Test Item Value Reference Range Interpretation Comme nts Blood group antibody screen [Presence] in Serum or Plasma (test code = 890-4) negative [facility] GroupReagin Ab [Presence] in Serum by [id number] 07:30:00* Test Item Value Reference Range Interpretation Comme nts Reagin Ab [Presence] in Seru m by RPR (test code = 69184-4) nonreactive nonreactive [facility] GroupHepatitis B virus surface Ag [Presence] in Serum 2019-01-26 07:30:00* Test Item Value Reference Range Interpretation Comme nts .hepatitis B surface antigen (test code = .hepatitis B surface antigen) negative negative [facility] GroupBacteria identified in Urine by [id number] 07:30:00* Test Item Value Reference Range Interpretation Comme nts Bacteria identified in Urine by Culture (test code = 630-4) no growth at 48 hrs. [facility] GroupChoriogonadotropin.beta subunit [Units/volume] in Serum or [id number] 02:05:00* Test Item Value Reference Range Interpretation Comme nts HCG quantitative (test code = HCG quantitative) 4590.0 mIU/mL 0-5 H [facility] W Auto Differential panel - [id number] 11:00:00 * Test Item Value Reference Range Interpretation Comme nts white blood count (test code = white blood count) 4.9 K/uL 4.0-11.5 red blood count (test code = red blood count) 4.02 M/uL 3.80-5.20 Hemoglobin [Mass/volume] in Blood (test code = 718-7) 13.0 g/dL 10.5-15.7 hematocrit (test code = hematocrit) 40.1 % 34.0-50.0 Erythrocyte mean corpuscular volume [Entitic volume] (test code = 83927-1) 99.7 fL 78-98 H Erythrocyte mean corpuscular hemoglobin [Entitic mass] (test code = 50961-3) 32.4 pg 26.2-33.4 mean corpuscular HGB conc (t est code = mean corpuscular HGB conc) 32.5 g/dL 31.5-36.2 red cell distribution width (test code = red cell distribution width) 11.4 % 11.5-15.5 L Platelets [#/volume] in Bloo d (test code = 51695-9) 212 K/uL 137-338 Platelet mean volume [Entiti c volume] in Blood (test code = 74208-7) 8.4 fL 8.4-11.8 Neutrophils.band form/100 leukocytes in Blood (test code = 15798-1) 53.6 % 44.4-80.1 Lymphocytes/100 leukocytes i n Body fluid (test code = 11348-4) 37.4 % 10.0-50.0 Monocytes/100 leukocytes in Blood by Automated count (test code = 5905-5) 5.5 % 3.6-12.04 Eosinophils/100 leukocytes i n Blood by Automated count (test code = 713-8) 1.9 % 0.0-5.41 Basophils/100 leukocytes in Blood by Automated count (test code = 706-2) 1.6 % 0.0-0.79 H [facility] Centerdifferential panel, [id number] 11:00:00 NeutrophilsBandLymphocyteMonocyteEosinophilBasophilPlatelet EstimatePlatelet MorphologyPolychromasiaHypochromasiaPoikilocytosisBasophilic StipplingAnisocytosisMicrocytosisMacrocytosisOvalocytesStomatocyteBurr CellsAcanthocytesMataWashington County Tuberculosis Hospital GroupReagin Ab [Presence] in Serum by RPR 2019-01-03 11:00:00* Test Item Value Reference Range Interpretation Comme nts Reagin Ab [Presence] in Seru m by RPR (test code = 88641-7) nonreactive nonreactive [facility] CenterComprehensive metabolic 2000 panel - Serum or [...] (test code = 6768-6) 59 U/L 35-105 [facility] CenterHIV 1+2 Ab [Presence] in Fjfcw4114-91-05 11:00:00HIV P24 AgHIV-1/2 AbMataMerit Health River RegionHepatitis B virus surface Ag [Presence] in Youff4393-41-70 11:00:00* Test Item Value Reference Range Interpretation Comme nts .hepatitis B surface antigen (test code = .hepatitis B surface antigen) negative negative [facility] Notes Date/Time Note Provider Source 2024-11-21 09:13:14 Chief Complaint Patient presents with Well Woman Exam Jade Murillo is here today for her Well Woman Exam. Patient's last menstrual period was 11/01/2024 (approximate). The patient's last pap smear was 2022 and her last mammogram was never. Keiko Sandra MA [facility] 2024-07-25 10:23:46 Chief Complaint Patient presents with STD 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 Wants to get checked for STD Althea Zarate LVN [facility] 2024-02-24 09:24:06 Chief Complaint Patient presents with Anxiety Follow up on anxiety and depression. She states that she feels the same. The medication for headaches are working well. Marce Castellano MA II T Marce Castellano MA, II [facility] 2024-01-25 13:20:53 Chief Complaint Patient presents with Headache Headaches that she's had for years. No nausea or vomiting. The pain is either on the right side or the left side. No visual disturbance. No prescribed medications. OTC meds are no longer working. Marce Castellano MA II T Marce Castellano MA, II [facility] 2023-12-07 14:20:25 Chief Complaint Patient presents with Cough Cough for 1 month Marce Castellano MA II [employer] ENGINE[employer] Marce Castellano MA, II [facility] 2019-08-29 21:34:00 [facility] OB Disch REPORT#:[id number] REPORT STATUS: Signed DATE:08/29/19 TIME: 2133 PATIENT: JADE MURILLO UNIT #: [id number] ROOM/BED: : 90 AGE: 29 SEX: F [...] loss due to surgery at 2137 RPT #:[id number] END OF REPORT [facility] 2019-08-29 19:07:00 [id number] [facility] [address], [place] [address] PATIENT NAME: JADE MURILLO ADMIT DATE: 08/02/19 ACCOUNT NO: [id number] ROOM NO: 2023 AGE: 29 SEX: F ADMITTING PHYSICIAN: Isaiah [...] section via Pfannenstiel. SURGEON: Isaiah Chase MD BUS MECHANIC: Cyndi Jarvis SA COMPLICATIONS: None. ESTIMATED BLOOD [...] blade was inserted. PATIENT NAME: JADE MURILLO The vesicouterine peritoneum was entered with Metzenbaum [...] By: Isaiah Chase MD WT: OP:FVIVI/SHANIA/ROMAN Conf#: [id number]/DID#: [id number] Authenticated by sIaiah Chase MD On 09/27/2019 06:43:29 AM at 0643 PATIENT NAME: JADE MURILLO [facility] 2019-08-28 21:20:00 [facility] OB Postpart Progr Note REPORT#:[id number] REPORT STATUS: Signed DATE:08/28/19 TIME: 2119 PATIENT: JADE MURILLO UNIT #: [id number] ROOM/BED: : 90 AGE: 29 SEX: F [...] Mean Pulse Ox FiO2 08/28 98.0-98.8 87-110 - 97-115/66-77 76.1 Last Documented: Result Date Time B/P 97/08/28 Temp 98.7 08/28 1957 Pulse 110 08/28 [...] progress Plan: routine care at 2120 RPT #:[id number] END OF REPORT [facility] 2019-08-27 16:35:00 [facility] OB Postpart Progr Note REPORT#:[id number] REPORT STATUS: Signed DATE:08/27/19 TIME: 1635 PATIENT: JADE MURILLO UNIT #: [id number] ROOM/BED: : 90 AGE: 29 SEX: F [...] progress Plan: routine care at 1635 RPT #:[id number] END OF REPORT [facility] 2019-08-25 20:54:00 [facility] OB Antepartum Prog Note REPORT#:[id number] REPORT STATUS: Signed DATE:08/25/19 TIME: 2053 PATIENT: JADE MURILLO UNIT #: [id number] ROOM/BED: [address] : 90 AGE: 29 SEX: F [...] TESTING, otherwise in am at 2100 RPT #:[id number] END OF REPORT [facility] 2019-08-24 20:53:00 [facility] OB Antepartum Prog Note REPORT#:[id number] REPORT STATUS: Signed DATE:08/24/19 TIME: 2052 PATIENT: JADE MURILLO UNIT #: [id number] ROOM/BED: [facility]-A : 90 AGE: 29 SEX: [...] Temp 98.2 08/24 09 Resp 18 08/24 916 B/P Mean 93.0 08/24 916 B/P 120/76 08/24 09 Pulse 84 08/24 916 Pulse Ox 97 [...] TESTING, otherwise THIS WEDNESDAY at 2053 RPT #:[id number] END OF REPORT [facility] 2019-08-23 20:03:00 [facility] OB Antepartum Prog Note REPORT#:[id number] REPORT STATUS: Signed DATE:08/23/19 TIME: 2002 PATIENT: JADE MURILLO UNIT #: [id number] ROOM/BED: [address] : 90 AGE: 29 SEX: F [...] TESTING, otherwise THIS WEDNESDAY at 2004 RPT #:[id number] END OF REPORT [facility] 2019-08-22 17:12:00 [facility] OB Antepartum Prog Note REPORT#:[id number] REPORT STATUS: Signed DATE:08/22/19 TIME: 1711 PATIENT: JADE MURILLO UNIT #: [id number] ROOM/BED: [facility]-A : 90 AGE: 29 SEX: [...] TESTING, otherwise THIS WEDNESDAY at 1713 RPT #:[id number] END OF REPORT [facility] 2019-08-21 12:42:00 [facility] OB Antepartum Prog Note REPORT#:[id number] REPORT STATUS: Signed DATE:08/21/19 TIME: 1242 PATIENT: JADE MURILLO UNIT #: [id number] ROOM/BED: [address] : 90 AGE: 29 SEX: F [...] Resp B/P B/P Mean Pulse Ox FiO2 10/13-08/21 98.1-98.7 76-147 16-18 117-120/67-74 86.0-91.0 82-100 Patient [...] 36 weeks, scheduled for per pt Dr rivera aware at 1424 RPT #:[id number] END OF REPORT [facility] 2019-08-20 12:53:00 [facility] OB Antepartum Prog Note REPORT#:[id number] REPORT STATUS: Signed DATE:08/20/19 TIME: 1253 PATIENT: JADE MURILLO UNIT #: [id number] ROOM/BED: [address] : 90 AGE: 29 SEX: F [...] at 35- 36 weeks at 1253 RPT #:[id number] END OF REPORT [facility] 2019-08-19 11:54:00 [facility] OB Antepartum Prog Note REPORT#:[id number] REPORT STATUS: Signed DATE:08/19/19 TIME: 1154 PATIENT: JADE MURILLO UNIT #: [id number] ROOM/BED: [address] : 90 AGE: 29 SEX: F [...] at 35- 36 weeks at 1155 RPT #:[id number] END OF REPORT [facility] 2019-08-18 18:02:00 [facility] OB Antepartum Prog Note REPORT#:[id number] REPORT STATUS: Signed DATE:08/18/19 TIME: 180 PATIENT: JADE MURILLO UNIT #: [id number] ROOM/BED: [address] : 90 AGE: 29 SEX: F [...] B/P 113/69 08/18 0959 Pulse 73 08/18 09 Pulse Ox 100 08/18 09 Resp 16 08/18 09 Temp 98.2 08/17 1923 Vital Signs Date [...] at 35- 36 weeks at 1802 RPT #:[id number] END OF REPORT [facility] 2019-08-17 21:38:00 [facility] OB Antepartum Prog Note REPORT#:[id number] REPORT STATUS: Signed DATE:08/17/19 TIME: 2137 PATIENT: JADE MURILLO UNIT #: [id number] ROOM/BED: [facility]-A : 90 AGE: 29 SEX: [...] Documented: Result Date Time B/P Mean 74.0 08/173 B/P 104/61 08/17 192 Pulse 88 08/17 [...] at 35- 36 weeks at 2142 RPT #:[id number] END OF REPORT [facility] 2019-08-16 21:42:00 [facility] OB Antepartum Prog Note REPORT#:[id number] REPORT STATUS: Signed DATE:08/16/19 TIME: 2141 PATIENT: AJDE MURILLO UNIT #: [id number] ROOM/BED: 3212-A : 90 AGE: 29 SEX: [...] at 35- 36 weeks at 2150 RPT #:[id number] END OF REPORT [facility] 2019-08-15 18:36:00 [facility] OB Antepartum Prog Note REPORT#:[id number] REPORT STATUS: Signed DATE:08/15/19 TIME: 1835 PATIENT: JADE MURILLO UNIT #: [id number] ROOM/BED: [address] : 90 AGE: 29 SEX: F [...] at 35- 36 weeks at 1837 RPT #:[id number] END OF REPORT [facility] 2019-08-14 17:46:00 [facility] OB Antepartum Prog Note REPORT#:[id number] REPORT STATUS: Signed DATE:08/14/19 TIME: 174 PATIENT: JADE MURILLO UNIT #: [id number] [address] AGE: 29 SEX: F [...] oterwise at 35 weeks at 1746 RPT #:[id number] END OF REPORT [facility] 2019-08-13 11:12:00 [facility] OB Antepartum Prog Note REPORT#:[id number] REPORT STATUS: Signed DATE:08/13/19 TIME: 111 PATIENT: JADE MURILLO UNIT #: [id number] [address] AGE: 29 SEX: F [...] oterwise at 35 weeks at 1112 RPT #:[id number] END OF REPORT [facility] 2019 12:38:00 [facility] OB Antepartum Prog Note REPORT#:[id number] REPORT STATUS: Signed DATE:08/12/19 TIME: 1238 PATIENT: JADE MURILLO UNIT #: [id number] ROOM/BED: [address] : 90 AGE: 29 SEX: F [...] oterwise at 35 weeks at 1239 RPT #:[id number] END OF REPORT [facility] 2019-08-11 21:53:00 [facility] OB Antepartum Prog Note REPORT#:[id number] REPORT STATUS: Signed DATE:08/11/19 TIME: 2152 PATIENT: JADE MURILLO UNIT #: [id number] ROOM/BED: [address] : 90 AGE: 28 SEX: F [...] 98.5 08/11 826 Pulse Ox 100 08/11 0720 Resp 18 [...] oterwise at 35 weeks at 2157 RPT #:[id number] END OF REPORT [facility] 2019-08-10 20:47:00 [facility] OB Antepartum Prog Note REPORT#:[id number] REPORT STATUS: Signed DATE:08/10/19 TIME: 2046 PATIENT: JADE MURILLO UNIT #: [id number] ROOM/BED: [address] : 90 AGE: 28 SEX: F ATTEND: Isaiah Chaes MD ADM AUTHOR: Isaiah Chase MD * [...] Pulse 86 08/10 1930 Temp 98.5 08/10 928 Resp 18 08/10 [...] FOR NON REASSURING TESTING at 2048 RPT #:[id number] END OF REPORT [facility] 2019-08-09 20:17:00 [facility] OB Antepartum Prog Note REPORT#:[id number] REPORT STATUS: Signed DATE:08/09/19 TIME: 2016 PATIENT: JADE MURILLO UNIT #: [id number] [address] AGE: 28 SEX: F [...] FOR NON REASSURING TESTING at 2017 RPT #:[id number] END OF REPORT [facility] 2019-08-08 13:06:00 [facility] OB Antepartum Prog Note REPORT#:[id number] REPORT STATUS: Signed DATE:08/08/19 TIME: 1306 PATIENT: JADE MURILLO UNIT #: [id number] ROOM/BED: [address] : 90 AGE: 28 SEX: F [...] FOR NON REASSURING TESTING at 1308 RPT #:[id number] END OF REPORT [facility] 2019-08-07 20:27:00 [facility] OB Antepartum Prog Note REPORT#:[id number] REPORT STATUS: Signed DATE:08/07/19 TIME: 2026 PATIENT: JADE MURILLO UNIT #: [id number] ROOM/BED: [address] : 90 AGE: 28 SEX: F [...] FOR NON REASSURING TESTING at 2028 RPT #:[id number] END OF REPORT [facility] 2019-08-06 13:37:00 [facility] OB Antepartum Prog Note REPORT#:[id number] REPORT STATUS: Signed DATE:08/06/19 TIME: 1336 PATIENT: JADE MURILLO UNIT #: [id number] ROOM/BED: [address] : 90 AGE: 28 SEX: F [...] Ox 100 08/06 0229 Resp 18 08/05 09 Vital Signs Date Temp Pulse Resp B/P [...] FOR NON REASSURING TESTING at 1338 RPT #:[id number] END OF REPORT [facility] 2019-08-05 21:42:00 [facility] OB Antepartum Prog Note REPORT#:[id number] REPORT STATUS: Signed DATE:08/05/19 TIME: 2141 PATIENT: JADE MURILLO UNIT #: [id number] ROOM/BED: [facility]-A : 90 AGE: 28 SEX: F ATTEND: [...] FOR NON REASSURING TESTING at 2143 RPT #:[id number] END OF REPORT [facility] 2019-08-04 19:35:00 [facility] Clinical Note REPORT#:[id number] REPORT STATUS: Signed DATE:08/04/19 TIME: 1934 PATIENT: JADE MURILLO UNIT #: [id number] ROOM/BED: [facility]2-A : 90 AGE: 28 SEX: F ATTEND: [...] check UA and cx at 1942 RPT #:[id number] END OF REPORT [facility] 2019-08-04 17:09:00 [facility] OB Antepartum Prog Note REPORT#:[id number] REPORT STATUS: Signed DATE:08/04/19 TIME: 170 PATIENT: JADE MURILLO UNIT #: [id number] [address] AGE: 28 SEX: F [...] FOR NON REASSURING TESTING at 1713 RPT #:[id number] END OF REPORT [facility] 2019-08-03 20:46:00 [facility] OB Admission / H P REPORT#:[id number] REPORT STATUS: Signed DATE:08/03/19 TIME: 2045 PATIENT: JADE MURILLO UNIT #: [id number] ROOM/BED: [address] : 90 AGE: 28 SEX: F [...] 34 weeks, inpatient management at 2114 RPT #:[id number] END OF REPORT [facility] 2019-08-03 17:03:00 [facility] DT Consult Note REPORT#:[id number] REPORT STATUS: Signed DATE:08/03/19 TIME: 1703 PATIENT: JADE MURILLO UNIT #: [id number] ROOM/BED: [address] : 90 AGE: 28 SEX: F [...] Signature: Ko Velasco DO at 1704 RPT #:[id number] END OF REPORT [facility]
[2025-01-13 13:15] LABS: Influenza A Ag Negative; Influenza B Ag Negative; SARS-CoV-2 Antigen Rapid Res Negative (Negative)
[2025-01-13] MEDS ORDERED: AZITHROMYCIN 250 MG TAB ONE (14:09)
--- NOTE | 2025-01-13 14:38 | ER ---
Nurse's Notes [facility] Jeremie Name: Jade Murillo Age: 34 yrs Sex: Female : 1990 Arrival Date: 01/13/2025 Time: 12:12 Bed 12 Private MD: Diagnosis: Acute upper respiratory infection, unspecified;Cough Presentation: 01/13 12:40 Chief complaint: Patient states: started getting sick Wednesday , fever yesterday , chills iw body aches. Coronavirus screen: Client presents with at least one sign or symptom that may indicate coronavirus-19. Ebola Screen: No symptoms or risks identified at this time. Initial Sepsis Screen: Does the patient meet any 2 criteria? No. Patient's initial sepsis screen is negative. Does the patient have a suspected source of infection? No. Patient's initial sepsis screen is negative. Risk Assessment: Do you want to hurt yourself or someone else? Patient reports no desire to harm self or others. Onset of symptoms was January 08, 2025. 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 - Infectious Disease History:: Denies. - Social history:: Smoking status: Smoking status: Patient denies any tobacco usage or history of. - Family history:: not pertinent. Screenin:15 [facility] ED Fall Risk Assessment (Adult) History of falling in the last 3 months, hb including since admission No falls in past 3 months (0 pts) Confusion or Disorientation No (0 pts) Intoxicated or Sedated No (0 pts) Impaired Gait No (0 pts) Mobility Assist Device Used No (0 pt) Altered Elimination No (0 pt) Score/Fall Risk Level 0 - 2 = Low Risk Oriented to surroundings, Maintained a safe environment, Educated pt \T\ family on fall prevention, incl call for assistance when getting out of bed. Abuse screen: Denies threats or abuse. Denies injuries from another. Nutritional screening: No deficits noted. Tuberculosis screening: No symptoms or risk factors identified. Assessment: 14:15 General: Appears in no apparent distress. Behavior is calm, cooperative. Pain: Denies hb pain. Neuro: Level of Consciousness is awake, alert, obeys commands, Oriented to person, place, time, situation. Cardiovascular: Patient's skin is warm and dry. Respiratory: Respiratory effort is even, unlabored, Respiratory pattern is regular, symmetrical. Vital Signs: 12:40 BP 120 / 94; Pulse 87; Resp 18; Temp 96.8; Pulse Ox 96% on R/A; Weight 71.67 kg; Height iw 5 ft. 4 in. ; Pain 0/10; 12:40 Body Mass Index 27.12 (71.67 kg, 162.56 cm) 12:40 Pain Scale: Adult ED Course: 12:14 Patient arrived in ED. im 12:20 William Castaneda MD is Attending Physician. [facility] 12:41 Triage completed. 12:41 Arm band placed on. 14:15 Gladis Mackenzie, RN is Primary Nurse. 14:15 Patient has correct armband on for positive identification. Bed in low position. Call hb light in reach. Provided Education on: use of call light. 14:15 No provider procedures requiring assistance completed. Patient did not have IV access hb during this emergency room visit. Administered Medications: 14:28 Drug: AZITHromycin PO 500 mg PO once Route: PO; hb Medication: 14:15 VIS not applicable for this client. hb Outcome: 14:38 Discharge ordered by . [facility] 14:49 Discharged to home ambulatory, 14:49 Condition: stable 14:49 Discharge instructions given to patient, Instructed on discharge instructions, follow up and referral plans. medication usage, Demonstrated understanding of instructions, follow-up care, medications, Prescriptions given X 3, 14:49 Patient left the ED. hb Signatures: William Castaneda MD MD cha Williams, Irene, RN RN Gladis Mackenzie, YONG RN Shaunna Cota im
--- NOTE | 2025-01-13 14:38 | EDPHYS ---
Physician Documentation [facility] Name: Jade Murillo Age: 34 yrs Sex: Female : 1990 Arrival Date: 01/13/2025 Time: 12:12 Bed 12 Private MD: THEE Physician William Castaneda HPI: 01/13 14:35 This 34 yrs old Black Female presents to ER via Ambulatory with complaints of Flu mel Symptoms. 14:35 The patient or guardian reports cough, described as mild. Onset: The symptoms/episode mel began/occurred 2 day(s) ago. Modifying factors: The symptoms are alleviated by nothing. the symptoms are aggravated by nothing. Associated signs and symptoms: The patient has no apparent associated signs or symptoms. Severity of symptoms: At their worst the symptoms were mild in the emergency department the symptoms are unchanged. The patient has experienced similar episodes in the past, several times. 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 - Infectious Disease History:: Denies. - Social history:: Smoking status: Smoking status: Patient denies any tobacco usage or history of. - Family history:: not pertinent. ROS: 14:35 Constitutional: Negative for fever, chills, and weight loss, Eyes: Negative for injury, mel pain, redness, and discharge, ENT: Negative for injury, pain, and discharge, Neck: Negative for injury, pain, and swelling, Cardiovascular: Negative for chest pain, palpitations, and edema, Abdomen/GI: Negative for abdominal pain, nausea, vomiting, diarrhea, and constipation, Back: Negative for injury and pain, : Negative for injury, bleeding, discharge, and swelling, MS/Extremity: Negative for injury and deformity, Skin: Negative for injury, rash, and discoloration, Neuro: Negative for headache, weakness, numbness, tingling, and seizure, Psych: Negative for depression, anxiety, suicide ideation, homicidal ideation, and hallucinations, Allergy/Immunology: Negative for hives, rash, and allergies, Endocrine: Negative for neck swelling, polydipsia, polyuria, polyphagia, and marked weight changes, Hematologic/Lymphatic: Negative for swollen nodes, abnormal bleeding, and unusual bruising, 14:35 Respiratory: Positive for cough, with no reported sputum, Exam: 14:35 Constitutional: This is a well developed, well nourished patient who is awake, alert, mel and in no acute distress. Head/Face: Normocephalic, atraumatic. Eyes: Pupils equal round and reactive to light, extra-ocular motions intact. Lids and lashes normal. Conjunctiva and sclera are non-icteric and not injected. Cornea within normal limits. Periorbital areas with no swelling, redness, or edema. ENT: Nares patent. No nasal discharge, no septal abnormalities noted. Tympanic membranes are normal and external auditory canals are clear. Oropharynx with no redness, swelling, or masses, exudates, or evidence of obstruction, uvula midline. Mucous membranes moist. Neck: Trachea midline, no thyromegaly or masses palpated, and no cervical lymphadenopathy. Supple, full range of motion without nuchal rigidity, or vertebral point tenderness. No Meningismus. Chest/axilla: Normal chest wall appearance and motion. Nontender with no deformity. No lesions are appreciated. Cardiovascular: Regular rate and rhythm with a normal S1 and S2. No gallops, murmurs, or rubs. Normal PMI, no JVD. No pulse deficits. Respiratory: Lungs have equal breath sounds bilaterally, clear to auscultation and percussion. No rales, rhonchi or wheezes noted. No increased work of breathing, no retractions or nasal flaring. Abdomen/GI: Soft, non-tender, with normal bowel sounds. No distension or tympany. No guarding or rebound. No evidence of tenderness throughout. Back: No spinal tenderness. No costovertebral tenderness. Full range of motion. Skin: Warm, dry with normal turgor. Normal color with no rashes, no lesions, and no evidence of cellulitis. MS/ Extremity: Pulses equal, no cyanosis. Neurovascular intact. Full, normal range of motion., bilateral aka Neuro: Awake and alert, GCS 15, oriented to person, place, time, and situation. Cranial nerves II-XII grossly intact. Motor strength 5/5 in all extremities. Sensory grossly intact. Cerebellar exam normal. Normal gait. Psych: Awake, alert, with orientation to person, place and time. Behavior, mood, and affect are within normal limits. 14:35 Musculoskeletal/extremity: DVT Exam: No signs of deep vein thrombosis. no pain, no swelling, no tenderness, negative Homans' sign noted on exam, no appreciated bluish discoloration, no erythema, no increased warmth, Vital Signs: 12:40 BP 120 / 94; Pulse 87; Resp 18; Temp 96.8; Pulse Ox 96% on R/A; Weight 71.67 kg; Height iw 5 ft. 4 in. ; Pain 0/10; 12:40 Body Mass Index 27.12 (71.67 kg, 162.56 cm) iw 12:40 Pain Scale: Adult iw MDM: 12:20 Medical Screening Exam initiated mel 14:36 Differential diagnosis: obstructed airway, tracheal injury, bronchitis, flu, URI. mel Antibiotic administration: The patient is discharged and will get outpatient antibiotics, Zithromax. Data reviewed: vital signs, nurses notes, lab test result(s), Flu: negative. Consideration of Admission/Observation Escalation of care including admission/observation considered. I considered the following discharge prescriptions or medication management in the emergency department Medications were administered in the Emergency Department. See MAR. Test considered but Not performed: Labs: no leana , no x ray. Care significantly affected by the following chronic conditions: none. 01/13 12:20 Order name: COVID-19 Ag + Flu A+B Ag; Complete Time: 14:08 [facility] 01/13 12:20 Order name: Group A Streptococcus Rapid; Complete Time: 14:08 [facility] 01/13 13:09 Order name: Throat Culture EDMS Administered Medications: 14:28 Drug: AZITHromycin PO 500 mg PO once Route: PO; hb Disposition Summary: 01/13/25 14:38 Discharge Ordered Notes: Location: Home [facility] Problem: new mel Symptoms: have improved mel Condition: Stable mel Diagnosis - Acute upper respiratory infection, unspecified mel - Cough mel Followup: mel - With: Private Physician - When: 2 - 3 days - Reason: Recheck today's complaints, Continuance of care, Re-evaluation by your physician Discharge Instructions: - Discharge Summary Sheet mel - Upper Respiratory Infection, Adult mel - Cool Mist Vaporizer mel - Upper Respiratory Infection, Adult, [id number] mel - Cough, Adult, [id number] mel - Cough, Adult [facility] Forms: - Medication Reconciliation Form mel - Antibiotic Education mel - Prescription Opioid Use mel - Patient Portal Instructions [facility] - Leadership Thank You Letter mel - Work release form Prescriptions: - Lidya-D 12 Hour 60-120 mg Oral Tablet Sustained Release 12 hr - take 1 tablet ORAL route every 12 hours As needed; 20 tablet; Refills: 0, [facility] Product Selection Permitted - Tessalon Perles 100 mg Oral capsule - take 2 capsule ORAL route every 8 hours As needed; 30 capsule; Refills: 0, [facility] Product Selection Permitted - Zithromax Z-Reuben 250 mg Oral Tablet - take 1 tablet ORAL route as directed for 5 days Day 1 - take two (2) tablets mel one time. Day 2, 3, 4 , 5 take one (1) tablet once daily.; 6 tablet; Refills: 0, Product Selection Permitted Signatures: Dispatcher [employer] EDMS William Castaneda MD MD cha Williams, Irene, RN RN Gladis Mackenzie RN RN Corrections: (The following items were deleted from the chart) 12:21 12:21 COVID-19 Ag + Flu A+B Ag+I.LAB.BRZ ordered. EDMS EDMS 12:21 12:21 Group A Streptococcus Rapid Sc+I.LAB.BRZ ordered. EDMS EDMS
[2025-01-13 14:54] VITALS: BP 120/94; TEMP 96.8; O2SAT 96
== END 2025-01-13 14:49 | disposition home or self-care (01) ==
LOC: ER 12:12
DX: J06.9 Acute upper respiratory infection, unspecified (principal); Z11.52 Encounter for screening for COVID-19
CPT/HCPCS: 36415; 87070; 87428; 99283